=== PATIENT | male | born 1955 | race Caucasian/White ===

== ENCOUNTER 2017-12-21 16:34 | Inpatient (IN) | payer OTHER ==
[2017-12-21 16:41] VITALS: BMI 38.0
--- NOTE | 2017-12-21 20:02 | PDOC ---
History of Present Illness - General Chief Complaint: Wound Infection Stated Complaint: PCP SENT Time Seen by Provider: 12/21/17 20:00 History Source: Patient Exam Limitations: No Limitations - History of Present Illness Initial Comments: CHIEF COMPLAINT: 62 y/o afebrile, morbidly obese male with PMH HTN, IDDM, CKD ( dialysis M/W/F) sent down from wound center for admission for right toe infection. HISTORY OF PRESENT ILLNESS: The patient states the fourth toe of his right foot has been infected for 1 week and isn't improving, despite wound care. The patient was seen in the wound center today and sent to the ER for admission for IV antibiotics and to r/o osteomyelitis with an MRI tomorrow. Patient denies fever, chills and all other symptoms. Vital signs on arrival are within normal limits. REVIEW OF SYSTEMS: GENERAL/CONSTITUTIONAL: No fever/chills. No weakness. No weight change. HEAD, EYES, EARS, NOSE AND THROAT: No change in vision. No ear pain or discharge. No sore throat. CARDIOVASCULAR: No chest pain or shortness of breath. RESPIRATORY: No cough, wheezing, or hemoptysis. GASTROINTESTINAL: No abd pain, nausea, vomiting, diarrhea. GENITOURINARY: No dysuria, frequency, or change in urination. MUSCULOSKELETAL: No joint or muscle swelling or pain. No neck or back pain. SKIN: +infection to 4th toe of right foot NEUROLOGIC: No headache, vertigo, loss of consciousness, or loss of sensation. PHYSICAL EXAM: VITAL_SIGNS: within normal limits GENERAL_APPEARANCE: alert, cooperative, no obvious discomfort. MENTAL_STATUS: speech clear, oriented X 3, responds appropriately to questions. NEURO: motor intact and sensory intact in injured extremity. EXTREMITIES: good pulse in injured extremity. Erythematous and necrotic wound on dorsum of 4th right toe with surrounding erythema that has been marked with a pen. No streaking. SKIN: warm, dry, good color. Past History - Past Medical History Allergies/Adverse Reactions: Allergies Allergy/AdvReac Type Severity Reaction Status Date / Time No Known Allergies Allergy Verified 12/21/17 16:36 Home Medications: Ambulatory Orders Cinacalcet HCl [Sensipar] 60 mg PO DAILY 09/28/14 Hum Insulin NPH/Reg Insulin Hm [Novolin 70-30 U100 Cartridge] 40 unit SQ BID 11/ 21/14 Aspirin [ASA -] 81 mg PO DAILY #30 tab.chew 10/03/14 Atorvastatin Ca [Lipitor] 40 mg PO HS #30 tablet 10/03/14 cloNIDine HCL [Catapres -] 0.1 mg PO BID #60 tablet 10/03/14 Pantoprazole Sodium [Protonix -] 40 mg PO DAILY 11/20/14 Metoclopramide HCl [Reglan] 5 mg PO TID #0 tablet 04/28/16 Pantoprazole Sodium [Protonix] 40 mg PO DAILY #0 tablet. 04/28/16 Sevelamer Carbonate [Renvela -] 2,400 mg PO TID 04/28/16 Anemia: Yes Asthma: No Cancer: No Cardiac Disorders: No CVA: No COPD: No CHF: No DVT: No Dementia: No Diabetes: Yes Dialysis: Yes (m-w-f, lt arm fistula) GI Disorders: Yes (DIVERTICULOSIS, COLON POLYPS, GERD) Disorders: No HTN: Yes Hypercholesterolemia: Yes Liver Disease: Yes (ELEVATED LIVER ENZYMES) Seizures: No Thyroid Disease: No - Surgical History Abdominal Surgery: No Appendectomy: No Cardiac Surgery: No Cholecystectomy: No Lung Surgery: No Neurologic Surgery: No Orthopedic Surgery: Yes (ROTATOR CUFF REPAIR L SHOULDER) - Suicide/Smoking/Psychosocial Hx Smoking History: Never smoked Have you smoked in the past 12 months: No Information on smoking cessation initiated: No Hx Alcohol Use: No Drug/Substance Use Hx: No Substance Use Type: None Hx Substance Use Treatment: No *Physical Exam - Vital Signs Last Vital Signs Temp Pulse Resp BP Pulse Ox 97.7 F 97 H 18 135/76 99 12/21/17 16:37 12/21/17 16:37 12/21/17 16:37 12/21/17 16:37 12/21/17 16:37 ED Treatment Course - LABORATORY CBC & Chemistry Diagram: 12/21/17 22:27 12/21/17 22:27 Medical Decision Making - Medical Decision Making A/P: 62 y/o male sent down from wound center for worsening right 4th toe wound. Plan is as follows: 1. Labs 2. Xray 3. Blood and wound culture 4. Admission No leukocytosis. No fever. Spoke with Dr. Wilson, who is admitting for Dr. Jauregui. she accepts admission to med/surg and is in agreement with IV cleocin. Pt is aware of plan for admission. *DC/Admit/Observation/Transfer Diagnosis at time of Disposition: Toe infection Cellulitis Qualifiers: Site of cellulitis: extremity Site of cellulitis of extremity: toe Laterality: right Qualified Code(s): L03.031 - Cellulitis of right toe - Discharge Dispostion Condition at time of disposition: Good Admit: Yes - Referrals Referrals: Jameel Jauregui MD [Primary Care Provider] - - Patient Instructions - Post Discharge Activity
--- NOTE | 2017-12-21 22:28 | PDOC ---
*Physical Exam - Vital Signs Last Vital Signs Temp Pulse Resp BP Pulse Ox 97.7 F 97 H 18 135/76 99 12/21/17 16:37 12/21/17 16:37 12/21/17 16:37 12/21/17 16:37 12/21/17 16:37 ED Treatment Course - LABORATORY CBC & Chemistry Diagram: 12/22/17 06:10 12/22/17 06:10 Medical Decision Making - Medical Decision Making 12/21/17 22:28 agree with care from PETTY Taveras *DC/Admit/Observation/Transfer Diagnosis at time of Disposition: Toe infection, Cellulitis - Discharge Dispostion Condition at time of disposition: Good - Referrals - Patient Instructions - Post Discharge Activity
[2017-12-21 22:33] LABS: BASO % 0.8 % (0-2.0); HEMATOCRIT 39.6 % (35.4-49); HEMOGLOBIN 13.1 GM/dL (11.7-16.9); LYMPH % 19.7 % (8-40); MCH 29.2 pg (25.7-33.7); MCHC 32.9 g/dl (32.0-35.9); MEAN CELL VOLUME 88.7 fl (80-96); MEAN PLT VOLUME 9.8 fl (7.5-11.1); MONO % 10.9 % (3.8-10.2); NEUT % 66.6 % (42.8-82.8); PLATELET COUNT 179 K/MM3 (134-434); RBC 4.47 M/mm3 (4.00-5.60); RDW 16.1 % (11.9-15.9); WHITE BLOOD COUNT 9.1 K/mm3 (4.0-10.0)
[2017-12-21] MEDS ORDERED: CLINDAMYCIN 600MG PREMIX IVPB 600 MG/50 ML BAG IVPB ONE ×2 (23:25→23:59)
[2017-12-22 00:18] LABS: ALBUMIN 2.9 g/dl (3.4-5.0); ANION GAP 13 (8-16); BILIRUBIN,TOTAL 0.6 mg/dL (0.2-1.0); BLOOD UREA NITROGEN 51 mg/dL (7-18); CALCIUM 8.2 mg/dL (8.5-10.1); CHLORIDE 95 mmol/L (98-107); CO2 26 mmol/L (21-32); GLUCOSE,RANDOM 163 mg/dL (74-106); SGPT/ALT 14 U/L (12-78); SODIUM 134 mmol/L (136-145)
[2017-12-22 00:23] LABS: ALK PHOS 131 U/L (45-117)
[2017-12-22 00:25] LABS: SGOT/AST 16 U/L (15-37)
[2017-12-22 00:27] LABS: CREATININE 9.3 mg/dL (0.7-1.3); POTASSIUM 5.4 mmol/L (3.5-5.1)
[2017-12-22] MEDS ORDERED: PIPERACILLIN/TAZOB 3.375 GM 3.375 GM in DEXTROSE 5%-WATER - 50 ML IVPB ONE (03:45)
[2017-12-22] MEDS ORDERED: VANCOMYCIN 1,000 MG in DEXTROSE 5%-WATER - 250 ML IVPB ONE ×2 (04:00→16:00)
[2017-12-22] MEDS ORDERED: PIPERACILLIN/TAZOB 3.375 GM 3.375 GM/50 ML BAG IVPB ONE ×2 (04:18→16:55)
[2017-12-22] MEDS ORDERED: INSULIN (NOVOLOG MIX 70/30) 100 UNITS/ML MDV SQ SCH (07:00)
[2017-12-22] MEDS: METOCLOPRAMIDE HCL 10 MG TABLET (FP) PO SCH ×2 (07:11→10:09)
[2017-12-22] MEDS: INSULIN SLIDING SCALE (NOVOLOG) 1 VIAL SQ SCH ×3 (07:11→22:12)
[2017-12-22 07:41] LABS: BASO % 0.8 % (0-2.0); EOS % 2.9 % (0-4.5); HEMATOCRIT 38.4 % (35.4-49); HEMOGLOBIN 12.5 GM/dL (11.7-16.9); LYMPH % 22.2 % (8-40); MCH 28.9 pg (25.7-33.7); MCHC 32.6 g/dl (32.0-35.9); MEAN CELL VOLUME 88.5 fl (80-96); MEAN PLT VOLUME 9.1 fl (7.5-11.1); MONO % 11.2 % (3.8-10.2); NEUT % 62.9 % (42.8-82.8); PLATELET COUNT 166 K/MM3 (134-434); RBC 4.34 M/mm3 (4.00-5.60)
[2017-12-22] MEDS: SEVELAMER CARBONATE 800 MG TAB (FP) PO SCH ×2 (08:08→12:55)
[2017-12-22 08:11] LABS: CHLORIDE 93 mmol/L (98-107); POTASSIUM 5.3 mmol/L (3.5-5.1); SODIUM 133 mmol/L (136-145)
[2017-12-22 08:34] LABS: ALK PHOS 122 U/L (45-117); ANION GAP 13 (8-16); BILIRUBIN,TOTAL 0.8 mg/dL (0.2-1.0); BLOOD UREA NITROGEN 51 mg/dL (7-18); CALCIUM 7.2 mg/dL (8.5-10.1); CO2 27 mmol/L (21-32); GLUCOSE,RANDOM 160 mg/dL (74-106); SGOT/AST 6 U/L (15-37); SGPT/ALT 14 U/L (12-78); TOT PROT 7.4 g/dl (6.4-8.2)
[2017-12-22 08:57] LABS: CREATININE 10.1 mg/dL (0.7-1.3)
[2017-12-22] MEDS: cloNIDine HCL 0.1 MG TABLET PO SCH ×2 (10:08→22:09)
[2017-12-22] MEDS: HEPARIN NA (PORCINE) 5,000 UNITS/ML 1ML VIAL SQ SCH ×2 (10:08→22:09)
[2017-12-22] MEDS: ASPIRIN 81 MG CHEWABLE TABLETS PO SCH (10:08)
[2017-12-22] MEDS: PANTOPRAZOLE 40 MG TABLET (FP) PO SCH (10:08)
[2017-12-22] MEDS: CINACALCET HCL 30 MG TAB (FP) PO SCH (10:09)
--- NOTE | 2017-12-22 11:06 | CONSULT ---
Consult - text type - Consultation Consultation Note: Renal Consult for ESRD on HD This is a 62 year old gentleman with PMhx of ESRD on HD (MWF x 8 years), Hypertension, IDDM who was referred from wound car to the ED for further management of his Right LE wound on his foot. Pt is without any acute complaints. Denies any pain. Wound started more then a week ago. No Abx as per pt. No fever, chills, N/V/D. Last dialysis was Wednesday w/o complication. No SOB, chest pain, LE swelling. PMHx: as above Allergies: NDKA Family hx: NC Social Hx: NO T/A/D ROS: as per HPI, all other pertinent ros negative Home Meds: Home Medications Medication Instructions Recorded Cinacalcet HCl [Sensipar] 60 mg PO DAILY 09/28/14 Hum Insulin NPH/Reg Insulin Hm 40 unit SQ BID 09/28/14 [Novolin 70-30 U100 Cartridge] Aspirin [ASA -] 81 mg PO DAILY #30 tab.chew 10/03/14 Atorvastatin Ca [Lipitor] 40 mg PO HS #30 tablet 10/03/14 cloNIDine HCL [Catapres -] 0.1 mg PO BID #60 tablet 10/03/14 Pantoprazole Sodium [Protonix -] 40 mg PO DAILY 11/20/14 Metoclopramide HCl [Reglan] 5 mg PO TID #0 tablet 04/28/16 Pantoprazole Sodium [Protonix] 40 mg PO DAILY #0 tablet. 04/28/16 Sevelamer Carbonate [Renvela -] 2,400 mg PO TID 04/28/16 Vital Signs Temperature 97.7 F 12/21/17 16:37 Pulse Rate 97 H 12/21/17 16:37 Respiratory Rate 18 12/21/17 16:37 Blood Pressure 135/76 12/21/17 16:37 O2 Sat by Pulse Oximetry (%) 98 12/22/17 02:00 NAD awake and alert Neck supple, No JVD, MMM RRR, No M/R CTA, no rales Obese, NT/ND Trace edema in LE left ARM AVF 1 inch wound on 4th digit of right foot, no drainage CBC, BMP 12/22/17 06:10 12/22/17 06:10 Current Medications Aspirin (Asa -) 81 mg PO DAILY [facility] Last Admin: 12/22/17 10:08 Dose: 81 mg Atorvastatin Calcium (Lipitor -) 40 mg PO HS [facility] Cinacalcet (Sensipar -) 60 mg PO DAILY [facility] Last Admin: 12/22/17 10:09 Dose: 60 mg Clonidine (Catapres -) 0.1 mg PO BID [facility] Last Admin: 12/22/17 10:08 Dose: 0.1 mg Heparin Sodium (Porcine) (Heparin -) 5,000 unit SQ BID [facility] Last Admin: 12/22/17 10:08 Dose: 5,000 unit Vancomycin HCl 1,000 mg/ (Dextrose) 250 mls @ 250 mls/hr IVPB DAILY [facility] PRN Reason: Protocol Piperacillin/Tazobactam/Dextrose (Zosyn 3.375gm Ivpb (Premix)) 50 mls @ 100 mls /hr IVPB BID [facility] PRN Reason: Protocol Insulin Aspart (Novolog Vial Sliding Scale -) 1 vial SQ ACHS [facility] PRN Reason: Protocol Last Admin: 12/22/17 07:11 Dose: Not Given Metoclopramide HCl (Reglan -) 5 mg PO TIDAC [facility] Last Admin: 12/22/17 10:09 Dose: 5 mg Pantoprazole Sodium (Protonix -) 40 mg PO DAILY [facility] Last Admin: 12/22/17 10:08 Dose: 40 mg Sevelamer Carbonate (Renvela -) 2,400 mg PO TIDCM [facility] Last Admin: 12/22/17 08:08 Dose: 2,400 mg 62 year old gentleman with PMhx of ESRD on HD (MWF x 8 years), Hypertension, IDDM who was referred from wound car to the ED for further management of his Right LE wound on his foot. #Suspected soft tissue infection vs osteomylitis of right LE s/p Vanco/Zosyn/Clindamyin in the ED cultures collected will check Vanco level with HD and redose as needed ID and Podiatry follow up #ESRD on HD for dialysis today as inpatient UF as tolerated Renal diet 1.2L fluid restriction dsoe all meds for intermittent HD #Hyperkalemia secondary to ESRD low k diet expect improvement with dialysis #Renal Osteodystrophy check Phos continue renvela Thank you Will follow Meet Pedro DO
--- NOTE | 2017-12-22 14:13 | CON.ID ---
Consult Consult Specialty:: infectious diseases Referred by:: Reason for Consultation:: wound infection - History of Present Illness Chief Complaint: non healing wound of the rt leg History of Present Illness: 62 year old gentleman with PMhx of ESRD o), Hypertension, IDDM who being admitted for r management of his Right LE wound on his foot. Pt is without any acute complaints. Denies any pain. according to the patient he suffered injury and the wound started about a week back patient did not have any symptoms so he did not follow up he did not have any fever chills or much pain patient went to the wound care center and was send to the hospital for further evaluation and treatment currently patient is stable with no complaints - History Source History Provided By: Patient Limitations to Obtaining History: No Limitations - Past Medical History Cardio/Vascular: Yes: HTN Endocrine: Yes: Diabetes Mellitus - Alcohol/Substance Use Hx Alcohol Use: No - Smoking History Smoking history: Never smoked Have you smoked in the past 12 months: No Home Medications - Allergies Allergies/Adverse Reactions: Allergies Allergy/AdvReac Type Severity Reaction Status Date / Time No Known Allergies Allergy Verified 12/21/17 16:36 - Home Medications Home Medications: Ambulatory Orders Cinacalcet HCl [Sensipar] 60 mg PO DAILY 09/28/14 Hum Insulin NPH/Reg Insulin Hm [Novolin 70-30 U100 Cartridge] 40 unit SQ BID Aspirin [ASA -] 81 mg PO DAILY #30 tab.chew 10/03/14 Atorvastatin Ca [Lipitor] 40 mg PO HS #30 tablet 10/03/14 cloNIDine HCL [Catapres -] 0.1 mg PO BID #60 tablet 10/03/14 Pantoprazole Sodium [Protonix -] 40 mg PO DAILY 11/20/14 Metoclopramide HCl [Reglan] 5 mg PO TID #0 tablet 04/28/16 Pantoprazole Sodium [Protonix] 40 mg PO DAILY #0 tablet. 04/28/16 Sevelamer Carbonate [Renvela -] 2,400 mg PO TID 04/28/16 Review of Systems - Review of Systems Constitutional: reports: No Symptoms Eyes: reports: No Symptoms HENT: reports: No Symptoms Neck: reports: No Symptoms Cardiovascular: reports: No Symptoms Respiratory: reports: No Symptoms Gastrointestinal: reports: No Symptoms, Vomiting Blood Musculoskeletal: reports: Joint Swelling Integumentary: reports: Bruising, Wound Neurological: reports: No Symptoms Endocrine: reports: No Symptoms Hematology/Lymphatic: reports: No Symptoms Psychiatric: reports: No Symptoms Physical Exam Vital Signs: Vital Signs Temperature 97.7 F 12/21/17 16:37 Pulse Rate 97 H 12/21/17 16:37 Respiratory Rate 18 12/21/17 16:37 Blood Pressure 135/76 12/21/17 16:37 O2 Sat by Pulse Oximetry (%) 98 12/22/17 02:00 Constitutional: Yes: Well Nourished, No Distress, Calm, Obese HENT: Yes: Atraumatic, Normocephalic Neck: Yes: Supple, Trachea Midline Cardiovascular: Yes: Regular Rate and Rhythm Respiratory: Yes: Regular, CTA Bilaterally Gastrointestinal: Yes: Normal Bowel Sounds, Soft Musculoskeletal: Yes: WNL Extremities: Yes: Other (left arm av fistula 1 inch wound on 4th digit of right foot, no drainage) Edema: RLE: 1+ Wound/Incision: Yes: Other (1 inch wound on 4th digit of right foot, no drainage ) Neurological: Yes: Alert, Oriented Psychiatric: Yes: Alert, Oriented Labs: CBC, BMP 12/22/17 06:10 12/22/17 06:10 Imaging - Results X-ray: Report Reviewed, Image Reviewed Assessment/Plan looking at the wound and the patients history i suspect patient could very well have osteo r/o osteo no healing wound of the rt leg obesity wound infection esrd patient received broad spectrum abx in the er plan will continue abx mri of the leg await for cx report rest as per renal
[2017-12-22] MEDS: PIPERACILLIN/TAZOB 2.25 GM 2.25 GM in DEXTROSE 5%-WATER - 50 ML IVPB SCH (15:10)
--- NOTE | 2017-12-22 17:39 | HP ---
Admitting History and Physical - Admission History of Present Illness: Pt is a 62 y/o morbidly obese male with PMH significant for HTN, IDDM, CKD ( dialysis M/W/F) who was sent down from wound center for admission for right toe infection. The patient states the fourth toe of his right foot has been infected for 1 week and isn't improving, despite wound care. The patient was seen in the wound center today and sent to the ER for admission for IV antibiotics and to r/o osteomyelitis. - Past Medical History Cardiovascular: Yes: HTN Endocrine: Yes: Diabetes Mellitus - Smoking History Smoking history: Never smoked Have you smoked in the past 12 months: No - Alcohol/Substance Use Hx Alcohol Use: No Home Medications - Allergies Allergies/Adverse Reactions: Allergies Allergy/AdvReac Type Severity Reaction Status Date / Time No Known Allergies Allergy Verified 12/21/17 16:36 - Home Medications Home Medications: Ambulatory Orders Cinacalcet HCl [Sensipar] 60 mg PO DAILY 09/28/14 Hum Insulin NPH/Reg Insulin Hm [Novolin 70-30 U100 Cartridge] 40 unit SQ BID Aspirin [ASA -] 81 mg PO DAILY #30 tab.chew 10/03/14 Atorvastatin Ca [Lipitor] 40 mg PO HS #30 tablet 10/03/14 cloNIDine HCL [Catapres -] 0.1 mg PO BID #60 tablet 10/03/14 Pantoprazole Sodium [Protonix -] 40 mg PO DAILY 11/20/14 Metoclopramide HCl [Reglan] 5 mg PO TID #0 tablet 04/28/16 Pantoprazole Sodium [Protonix] 40 mg PO DAILY #0 tablet. 04/28/16 Sevelamer Carbonate [Renvela -] 2,400 mg PO TID 04/28/16 Family Disease History - Family Disease History Family History: Unremarkable Review of Systems - Review of Systems Constitutional: reports: No Symptoms Eyes: reports: No Symptoms HENT: reports: No Symptoms Neck: reports: No Symptoms Cardiovascular: reports: No Symptoms Respiratory: reports: No Symptoms Gastrointestinal: reports: No Symptoms Physical Examination Vital Signs: Vital Signs Temperature 97.7 F 12/21/17 16:37 Pulse Rate 97 H 12/21/17 16:37 Respiratory Rate 18 12/21/17 16:37 Blood Pressure 135/76 12/21/17 16:37 O2 Sat by Pulse Oximetry (%) 98 12/22/17 02:00 Constitutional: Yes: Well Nourished HENT: Yes: WNL Neck: Yes: WNL, Supple Cardiovascular: Yes: WNL, Regular Rate and Rhythm Respiratory: Yes: WNL, Regular, CTA Bilaterally Gastrointestinal: Yes: WNL, Normal Bowel Sounds, Soft, Abdomen, Obese Extremities: Yes: Other (LUE AVF Rt 4th toe w/ eschar) Neurological: Yes: WNL, Alert, Oriented ...Motor Strength: WNL Labs: CBC, BMP 12/22/17 06:10 12/22/17 06:10 Problem List - Problems (1) Cellulitis Assessment/Plan: Cont IV antibxs As per ID/Vasc Check MRI to r/o oste Follow cultures Code(s): L03.90 - CELLULITIS, UNSPECIFIED Qualifiers: Site of cellulitis: extremity Site of cellulitis of extremity: toe Laterality: right Qualified Code(s): L03.031 - Cellulitis of right toe (2) ESRD (end stage renal disease) Code(s): N18.6 - END STAGE RENAL DISEASE (3) Diabetes Code(s): E11.9 - TYPE 2 DIABETES MELLITUS WITHOUT COMPLICATIONS (4) HTN (hypertension) Code(s): I10 - ESSENTIAL (PRIMARY) HYPERTENSION (5) HLD (hyperlipidemia) Code(s): E78.5 - HYPERLIPIDEMIA, UNSPECIFIED
[2017-12-22] MEDS ORDERED: PIPERACILLIN/TAZOB 3.375 GM 50 ML IVPB SCH (22:00)
[2017-12-22] MEDS: ATORVASTATIN CA 40 MG TABLET (FP) PO SCH (22:09)
[2017-12-23] MEDS: PIPERACILLIN/TAZOB 2.25 GM 2.25 GM in DEXTROSE 5%-WATER - 50 ML IVPB SCH ×3 (02:46→17:42)
[2017-12-23] MEDS: METOCLOPRAMIDE HCL 10 MG TABLET (FP) PO SCH ×3 (06:00→17:41)
[2017-12-23] MEDS: INSULIN SLIDING SCALE (NOVOLOG) 1 VIAL SQ SCH ×4 (06:01→21:11)
[2017-12-23] MEDS: SEVELAMER CARBONATE 800 MG TAB (FP) PO SCH ×3 (08:45→17:41)
[2017-12-23] MEDS ORDERED: VANCOMYCIN 1,000 MG in DEXTROSE 5%-WATER - 250 ML IVPB SCH (10:00)
[2017-12-23] MEDS ORDERED: PT OWN MED DRAWER 7, Y5N ONE ×2 (10:49→17:36)
[2017-12-23] MEDS: PANTOPRAZOLE 40 MG TABLET (FP) PO SCH (10:50)
[2017-12-23] MEDS: ASPIRIN 81 MG CHEWABLE TABLETS PO SCH (10:50)
[2017-12-23] MEDS: HEPARIN NA (PORCINE) 5,000 UNITS/ML 1ML VIAL SQ SCH ×2 (10:51→21:12)
[2017-12-23] MEDS: CINACALCET HCL 30 MG TAB (FP) PO SCH (10:51)
[2017-12-23] MEDS: cloNIDine HCL 0.1 MG TABLET PO SCH ×2 (10:51→21:12)
--- NOTE | 2017-12-23 12:33 | PN ---
Progress Note, Physician History of Present Illness: patient doing well no complaints had mri of the leg done wound dry no drainage - Current Medication List Current Medications: Active Medications Aspirin (Asa -) 81 mg PO DAILY [facility] Last Admin: 12/23/17 10:50 Dose: 81 mg Atorvastatin Calcium (Lipitor -) 40 mg PO HS [facility] Last Admin: 12/22/17 22:09 Dose: 40 mg Cinacalcet (Sensipar -) 60 mg PO DAILY [facility] Last Admin: 12/23/17 10:51 Dose: 60 mg Clonidine (Catapres -) 0.1 mg PO BID [facility] Last Admin: 12/23/17 10:51 Dose: 0.1 mg Heparin Sodium (Porcine) (Heparin -) 5,000 unit SQ BID [facility] Last Admin: 12/23/17 10:51 Dose: 5,000 unit Piperacillin Sod/Tazobactam (Sod 2.25 gm/ Dextrose) 50 mls @ 100 mls/hr IVPB Q8H-IV [facility] PRN Reason: Protocol Last Admin: 12/23/17 10:51 Dose: 100 mls/hr Insulin Aspart (Novolog Vial Sliding Scale -) 1 vial SQ ACHS [facility] PRN Reason: Protocol Last Admin: 12/23/17 11:11 Dose: 2 units Metoclopramide HCl (Reglan -) 5 mg PO TIDAC [facility] Last Admin: 12/23/17 10:52 Dose: Not Given Pantoprazole Sodium (Protonix -) 40 mg PO DAILY [facility] Last Admin: 12/23/17 10:50 Dose: 40 mg Sevelamer Carbonate (Renvela -) 2,400 mg PO TIDCM [facility] Last Admin: 12/23/17 12:12 Dose: 2,400 mg - Objective Vital Signs: Vital Signs Temperature 97.8 F 12/23/17 09:00 Pulse Rate 84 12/23/17 09:00 Respiratory Rate 18 12/23/17 09:00 Blood Pressure 111/73 12/23/17 09:00 O2 Sat by Pulse Oximetry (%) 100 12/22/17 21:30 Constitutional: Yes: No Distress, Calm, Obese Cardiovascular: Yes: Regular Rate and Rhythm Respiratory: Yes: Regular, CTA Bilaterally Gastrointestinal: Yes: Normal Bowel Sounds, Soft Musculoskeletal: Yes: Other Extremities: Yes: Other (dialysis fistula wound dry present) Neurological: Yes: Alert, Oriented Psychiatric: Yes: Alert, Oriented Labs: CBC, BMP 12/22/17 06:10 12/22/17 06:10 Assessment/Plan looking at the wound and the patients history i suspect patient could very well have osteo r/o osteo no healing wound of the rt leg obesity wound infection esrd patient received broad spectrum abx in the er plan continue abx await for mri result await for cx rest as per primary dialysis as per renal
--- NOTE | 2017-12-23 14:28 | CONSULT ---
Consult - text type - Consultation Consultation Note: Patient is known to me. Presented to me with Cellulitis of right foot on Thursday 12/21. Sent to ER for Admission and treatment. Patient seen on the floor about 11am today. Stated MRI done. nvs decreased b/l, +cellulitis right foot with necrotic wound right foot, - drainage, +dry eschar. 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 Keller. MRI results to be reviewed. IVABX as per ID. Santyl dressing to right foot wound. HBO Eval. Will follow. Left foot protective dry sterile dressing. Post op shoe both feet. CBC with diff, esr, [id number], crp if not done already.
--- NOTE | 2017-12-23 15:42 | PN ---
Progress Note, Physician Chief Complaint: This is a patient on HD for ESRD, admitted with gangrenous foot. History of Present Illness: This is a 62 year old gentleman with PMhx of ESRD on HD (MWF x 8 years), Hypertension, IDDM who was referred from wound care. The patient is comfortable. No new complaints. Denies any pain. Wound started more than a week ago. - Current Medication List Current Medications: Active Medications Aspirin (Asa -) 81 mg PO DAILY [facility] Last Admin: 12/23/17 10:50 Dose: 81 mg Atorvastatin Calcium (Lipitor -) 40 mg PO HS [facility] Last Admin: 12/22/17 22:09 Dose: 40 mg Cinacalcet (Sensipar -) 60 mg PO DAILY [facility] Last Admin: 12/23/17 10:51 Dose: 60 mg Clonidine (Catapres -) 0.1 mg PO BID [facility] Last Admin: 12/23/17 10:51 Dose: 0.1 mg Collagenase (Santyl -) 1 applic TP DAILY [facility] Heparin Sodium (Porcine) (Heparin -) 5,000 unit SQ BID [facility] Last Admin: 12/23/17 10:51 Dose: 5,000 unit Piperacillin Sod/Tazobactam (Sod 2.25 gm/ Dextrose) 50 mls @ 100 mls/hr IVPB Q8H-IV [facility] PRN Reason: Protocol Last Admin: 12/23/17 10:51 Dose: 100 mls/hr Insulin Aspart (Novolog Vial Sliding Scale -) 1 vial SQ ACHS [facility] PRN Reason: Protocol Last Admin: 12/23/17 11:11 Dose: 2 units Metoclopramide HCl (Reglan -) 5 mg PO TIDAC [facility] Last Admin: 12/23/17 10:52 Dose: Not Given Pantoprazole Sodium (Protonix -) 40 mg PO DAILY [facility] Last Admin: 12/23/17 10:50 Dose: 40 mg Sevelamer Carbonate (Renvela -) 2,400 mg PO TIDCM [facility] Last Admin: 12/23/17 12:12 Dose: 2,400 mg - Objective Vital Signs: Vital Signs Temperature 98.2 F 12/23/17 14:23 Pulse Rate 85 12/23/17 14:23 Respiratory Rate 18 12/23/17 14:23 Blood Pressure 111/66 12/23/17 14:23 O2 Sat by Pulse Oximetry (%) 100 12/22/17 21:30 Constitutional: Yes: Well Nourished, Anxious Eyes: Yes: Conjunctiva Clear HENT: Yes: Normocephalic Neck: Yes: Trachea Midline Cardiovascular: Yes: Regular Rate and Rhythm, S1, S2 Respiratory: Yes: CTA Bilaterally, Diminished Gastrointestinal: Yes: Normal Bowel Sounds, Abdomen, Obese Extremities: Yes: Cool, Other (gangrene of the toe (Rt)) Edema: Yes Edema: LLE: Trace, RLE: Trace Labs: CBC, BMP 12/22/17 06:10 12/22/17 06:10 Problem List - Problems (1) ESRD (end stage renal disease) Code(s): N18.6 - END STAGE RENAL DISEASE (2) Toe gangrene Code(s): I96 - GANGRENE, NOT ELSEWHERE CLASSIFIED (3) Cellulitis Code(s): L03.90 - CELLULITIS, UNSPECIFIED Qualifiers: Site of cellulitis: extremity Site of cellulitis of extremity: toe Laterality: right Qualified Code(s): L03.031 - Cellulitis of right toe (4) Toe infection Code(s): L08.9 - LOCAL INFECTION OF THE SKIN AND SUBCUTANEOUS TISSUE, UNSP Assessment/Plan This is a 62 year old gentleman with PMhx of ESRD on HD (MWF x 8 years), Hypertension, IDDM admitted with foot gangrene. Vascular follow up and ID follow up in progress. Had uneventful HD yesterday. Next HD tin AM. Will continue the Abx. Thank you. Elizabet Arteaga MD
--- NOTE | 2017-12-23 16:05 | PN ---
Physical Exam: Medicine coverage for Dr. Wilson SUBJECTIVE: Patient seen and examined. He has no acute complaints, no fever, chills. Tolerated HD yesterday. OBJECTIVE: Vital Signs Period Temp Pulse Resp BP Sys/Martinez Pulse Ox Last 24 Hr 97.8 F-98.6 F 70-94 18-18 96-148/52-87 100 PE Neuro: alert, awake, cn 2-12 intact Pulm: CTAB CV: s1 s2 rrr Abd: s nt nd + bs Ext: LUE AVF, R 4th toe eschar, non draining, open, + dp pulses, l plantar foot wound stage 2 Laboratory Results - last 24 hr 12/22/17 12/22/17 12/23/17 16:00 22:09 05:54 POC Glucometer 218 176 Random Vancomycin Vancomycin Pre-Dose 10.810 H D 12/23/17 12/23/17 07:15 11:10 POC Glucometer 171 Random Vancomycin 14.506 Vancomycin Pre-Dose Active Medications Generic Name Dose Route Start Last Admin Trade Name Russellq PRN Reason Stop Dose Admin Aspirin 81 mg 12/22/17 10:00 12/23/17 10:50 Asa - PO 81 mg DAILY MARK Administration Atorvastatin Calcium 40 mg 12/22/17 22:00 12/22/17 22:09 Lipitor - PO 40 mg HS MARK Administration Cinacalcet 60 mg 12/22/17 10:00 12/23/17 10:51 Sensipar - PO 60 mg DAILY MARK Administration Clonidine 0.1 mg 12/22/17 10:00 12/23/17 10:51 Catapres - PO 0.1 mg BID MARK Administration Collagenase 1 applic 12/24/17 10:00 Santyl - TP DAILY MARK Heparin Sodium (Porcine) 5,000 unit 12/22/17 10:00 12/23/17 10:51 Heparin - SQ 5,000 unit BID MARK Administration Piperacillin Sod/Tazobactam 50 mls @ 100 mls/hr 12/22/17 15:15 12/23/17 10:51 Sod 2.25 gm/ Dextrose IVPB 100 mls/hr Q8H-IV MARK Administration Protocol Insulin Aspart 1 vial 12/22/17 07:00 12/23/17 11:11 Novolog Vial Sliding Scale - SQ 2 units ACHS MARK Administration Protocol Metoclopramide HCl 5 mg 12/22/17 07:00 02/15/18 10:52 Reglan - PO Not Given TIDAC MARK Pantoprazole Sodium 40 mg 12/22/17 10:00 12/23/17 10:50 Protonix - PO 40 mg DAILY MARK Administration Sevelamer Carbonate 2,400 mg 12/22/17 08:00 12/23/17 12:12 Renvela - PO 2,400 mg TIDCM MARK Administration Assessment: 62 year old male admitted with R foot cellulitis Plan: 1. R foot cellulitis - r/o osteo, LE MRI done, report pending - Continue zosyn per ID - Daily dressing changes with santyl, post op shoe - ESR, CRP ordered - Vascular/podiatry seeing 2. DM II - Resume novolog 70/30 40units bid - ISS, BGM ACHS 3.ESRD HD MWF - HD per renal - Renvela - Sensipar 4. DVT - Heparin sq 5. HTN - Clonidine 0.1mg BID 6. HLD - Statin Visit type - Emergency Visit Emergency Visit: Yes ED Registration Date: 12/21/17 Care time: The patient presented to the Emergency Department on the above date and was hospitalized for further evaluation of their emergent condition. - New Patient This patient is new to me today: Yes Date on this admission: 12/23/17 - Critical Care Critical Care patient: No
[2017-12-23] MEDS: INSULIN (NOVOLOG MIX 70/30) 100 UNITS/ML MDV SQ SCH (17:48)
[2017-12-23] MEDS: ATORVASTATIN CA 40 MG TABLET (FP) PO SCH (21:11)
[2017-12-24] MEDS: PIPERACILLIN/TAZOB 2.25 GM 2.25 GM in DEXTROSE 5%-WATER - 50 ML IVPB SCH ×2 (01:57→10:36)
[2017-12-24] MEDS: HEPARIN NA (PORCINE) 5,000 UNITS/ML 1ML VIAL SQ SCH ×3 (05:57→22:41)
[2017-12-24] MEDS: METOCLOPRAMIDE HCL 10 MG TABLET (FP) PO SCH ×4 (05:59→17:34)
[2017-12-24] MEDS: INSULIN SLIDING SCALE (NOVOLOG) 1 VIAL SQ SCH ×4 (06:01→22:46)
[2017-12-24] MEDS: INSULIN (NOVOLOG MIX 70/30) 100 UNITS/ML MDV SQ SCH ×2 (06:01→17:35)
[2017-12-24 06:06] LABS: HBSAG SCREEN Negative (Negative); HEP B CORE AB, TOT Negative (Negative)
[2017-12-24] MEDS: SEVELAMER CARBONATE 800 MG TAB (FP) PO SCH ×4 (08:15→17:31)
[2017-12-24 08:40] LABS: ANION GAP 11 (8-16); BLOOD UREA NITROGEN 48 mg/dL (7-18); CALCIUM 7.5 mg/dL (8.5-10.1); CHLORIDE 96 mmol/L (98-107); CO2 28 mmol/L (21-32); GLUCOSE,RANDOM 51 mg/dL (74-106); POTASSIUM 4.7 mmol/L (3.5-5.1); SODIUM 135 mmol/L (136-145)
[2017-12-24 08:50] LABS: CREATININE 9.8 mg/dL (0.7-1.3)
[2017-12-24] MEDS ORDERED: PT OWN MED DRAWER 7, Y5N ONE ×2 (10:03→14:52)
[2017-12-24] MEDS: CINACALCET HCL 30 MG TAB (FP) PO SCH (10:06)
[2017-12-24] MEDS: PANTOPRAZOLE 40 MG TABLET (FP) PO SCH (10:06)
[2017-12-24] MEDS: cloNIDine HCL 0.1 MG TABLET PO SCH ×2 (10:07→22:41)
[2017-12-24] MEDS: ASPIRIN 81 MG CHEWABLE TABLETS PO SCH (10:07)
--- NOTE | 2017-12-24 10:42 | PN ---
Progress Note, Physician Chief Complaint: This is a patient on HD for ESRD, admitted with gangrenous foot. Seen on dialysis i the uit. Tolerates well. Orders reviewed with the RN. History of Present Illness: This is a 62 year old gentleman with PMhx of ESRD on HD (MWF x 8 years), Hypertension, IDDM who was referred from wound care. The patient is comfortable. No new complaints. Denies any pain. - Current Medication List Current Medications: Active Medications Aspirin (Asa -) 81 mg PO DAILY [facility] Last Admin: 12/24/17 10:07 Dose: 81 mg Atorvastatin Calcium (Lipitor -) 40 mg PO HS [facility] Last Admin: 12/23/17 21:11 Dose: 40 mg Cinacalcet (Sensipar -) 60 mg PO DAILY [facility] Last Admin: 12/24/17 10:06 Dose: 60 mg Clonidine (Catapres -) 0.1 mg PO BID [facility] Last Admin: 12/24/17 10:07 Dose: Not Given Collagenase (Santyl -) 1 applic TP DAILY [facility] Heparin Sodium (Porcine) (Heparin -) 5,000 unit SQ TID [facility] Last Admin: 12/24/17 05:57 Dose: 5,000 unit Piperacillin Sod/Tazobactam (Sod 2.25 gm/ Dextrose) 50 mls @ 100 mls/hr IVPB Q8H-IV MARK PRN Reason: Protocol Last Admin: 12/24/17 10:36 Dose: 100 mls/hr Insulin Aspart (Novolog Vial Sliding Scale -) 1 vial SQ ACHS [facility] PRN Reason: Protocol Last Admin: 12/24/17 06:01 Dose: Not Given Insulin Aspart (Novolog Mix 70/30 Vial) 40 units SQ BIDAC [facility] Last Admin: 12/24/17 06:01 Dose: 40 units Metoclopramide HCl (Reglan -) 5 mg PO TIDAC [facility] Last Admin: 12/24/17 06:01 Dose: 5 mg Pantoprazole Sodium (Protonix -) 40 mg PO DAILY [facility] Last Admin: 12/24/17 10:06 Dose: 40 mg Sevelamer Carbonate (Renvela -) 2,400 mg PO TIDCM [facility] Last Admin: 12/24/17 08:15 Dose: 2,400 mg - Objective Vital Signs: Vital Signs Temperature 76 F L 12/24/17 06:00 Pulse Rate 79 12/24/17 06:00 Respiratory Rate 20 12/24/17 06:00 Blood Pressure 125/76 12/24/17 06:00 O2 Sat by Pulse Oximetry (%) 100 12/22/17 21:30 Constitutional: Yes: No Distress, Calm Eyes: Yes: Conjunctiva Clear HENT: Yes: Normocephalic Neck: Yes: Trachea Midline Cardiovascular: Yes: S1, S2 Respiratory: Yes: CTA Bilaterally, Diminished Gastrointestinal: Yes: Normal Bowel Sounds, Soft Genitourinary: No: CVA Tenderness - Left, CVA Tenderness - Right Extremities: Yes: Other (ulcers on the toes) Neurological: Yes: Alert, Oriented Labs: CBC, BMP 12/24/17 08:00 Problem List - Problems (1) ESRD (end stage renal disease) Code(s): N18.6 - END STAGE RENAL DISEASE (2) Toe gangrene Code(s): I96 - GANGRENE, NOT ELSEWHERE CLASSIFIED (3) Cellulitis Code(s): L03.90 - CELLULITIS, UNSPECIFIED Qualifiers: Site of cellulitis: extremity Site of cellulitis of extremity: toe Laterality: right Qualified Code(s): L03.031 - Cellulitis of right toe (4) Toe infection Code(s): L08.9 - LOCAL INFECTION OF THE SKIN AND SUBCUTANEOUS TISSUE, UNSP Assessment/Plan This is a 62 year old gentleman with PMhx of ESRD on HD (MWF x 8 years), Hypertension, IDDM admitted with foot gangrene. Vascular follow up and ID follow up in progress. HD in progress. Tolerates well. Will continue the Abx. Thank you. Elizabet Arteaga MD
--- NOTE | 2017-12-24 11:51 | CONSULT ---
Consult - text type - Consultation Consultation Note: Patient seen in bed in dialysis. No complaints. vss, tmax 97.8, vsgi, mri inconclusive for om right foot, left foot wound is resolved,+wound 4th toe with necrotic tissue, jyee6n=4.4, ESR=84, CRP=5.9 om? right resolved wound left HBO consult. Continue santyl dressing changes. Needs custom molded shoes due to charcot deforimty. Will follow. Post op shoe b/l.
--- NOTE | 2017-12-24 13:42 | PN ---
Progress Note, Physician History of Present Illness: patient stable no complaints - Current Medication List Current Medications: Active Medications Aspirin (Asa -) 81 mg PO DAILY [facility] Last Admin: 12/24/17 10:07 Dose: 81 mg Atorvastatin Calcium (Lipitor -) 40 mg PO HS [facility] Last Admin: 12/23/17 21:11 Dose: 40 mg Cinacalcet (Sensipar -) 60 mg PO DAILY [facility] Last Admin: 12/24/17 10:06 Dose: 60 mg Clonidine (Catapres -) 0.1 mg PO BID [facility] Last Admin: 12/24/17 10:07 Dose: Not Given Collagenase (Santyl -) 1 applic TP DAILY [facility] Heparin Sodium (Porcine) (Heparin -) 5,000 unit SQ TID [facility] Last Admin: 12/24/17 05:57 Dose: 5,000 unit Ceftriaxone Sodium 2 gm/ (Dextrose) 100 mls @ 200 mls/hr IVPB DAILY [facility] Insulin Aspart (Novolog Vial Sliding Scale -) 1 vial SQ ACHS [facility] PRN Reason: Protocol Last Admin: 12/24/17 12:29 Dose: Not Given Insulin Aspart (Novolog Mix 70/30 Vial) 40 units SQ BIDAC [facility] Last Admin: 12/24/17 06:01 Dose: 40 units Metoclopramide HCl (Reglan -) 5 mg PO TIDAC [facility] Last Admin: 12/24/17 12:30 Dose: Not Given Pantoprazole Sodium (Protonix -) 40 mg PO DAILY [facility] Last Admin: 12/24/17 10:06 Dose: 40 mg Sevelamer Carbonate (Renvela -) 2,400 mg PO TIDCM [facility] Last Admin: 12/24/17 12:29 Dose: Not Given - Objective Vital Signs: Vital Signs Temperature 97.8 F 12/24/17 10:10 Pulse Rate 79 12/24/17 12:30 Respiratory Rate 18 12/24/17 12:30 Blood Pressure 155/92 12/24/17 12:30 O2 Sat by Pulse Oximetry (%) 100 12/22/17 21:30 Constitutional: Yes: No Distress, Calm, Obese Cardiovascular: Yes: Regular Rate and Rhythm Respiratory: Yes: Regular, CTA Bilaterally Gastrointestinal: Yes: Normal Bowel Sounds, Soft Musculoskeletal: Yes: WNL Extremities: Yes: Other Wound/Incision: Yes: Other (as described above) Neurological: Yes: Alert, Oriented Psychiatric: Yes: Alert, Oriented Labs: CBC, BMP 12/24/17 08:00 12/24/17 08:00 Assessment/Plan looking at the wound and the patients history i suspect patient could very well have osteo r/o osteo no healing wound of the rt leg obesity wound infection esrd looked at the mri result i am leaning towards treating this patient as osteo because of his history plan will change abx to ceftriaxone i am going to suggest we give it for 4 weeks
[2017-12-24] MEDS: COLLAGENASE CLOSTRIDIUM HIST. 30 GRAMS TUBE TP SCH (14:54)
[2017-12-24] MEDS: CEFTRIAXONE IN IS-OSM DEXTROSE 2 GM/50 ML BAG IVPB SCH (14:54)
[2017-12-24] MEDS ORDERED: INSULIN (NOVOLOG MIX 70/30) 100 UNITS/ML MDV SQ ONE (18:06)
[2017-12-24] MEDS: ATORVASTATIN CA 40 MG TABLET (FP) PO SCH (22:41)
--- NOTE | 2017-12-24 23:22 | PN ---
Progress Note, Physician History of Present Illness: No new changes - Current Medication List Current Medications: Active Medications Aspirin (Asa -) 81 mg PO DAILY [facility] Last Admin: 12/24/17 10:07 Dose: 81 mg Atorvastatin Calcium (Lipitor -) 40 mg PO HS [facility] Last Admin: 12/24/17 22:41 Dose: 40 mg Cinacalcet (Sensipar -) 60 mg PO DAILY [facility] Last Admin: 12/24/17 10:06 Dose: 60 mg Clonidine (Catapres -) 0.1 mg PO BID [facility] Last Admin: 12/24/17 22:41 Dose: 0.1 mg Collagenase (Santyl -) 1 applic TP DAILY [facility] Last Admin: 12/24/17 14:54 Dose: 1 applic Heparin Sodium (Porcine) (Heparin -) 5,000 unit SQ TID [facility] Last Admin: 12/24/17 22:41 Dose: 5,000 unit CEFTRIAXONE IN IS-OSM DEXTROSE (Ceftriaxone 2 Gm-D5w Bag) 2 gm in 50 mls @ 100 mls/hr IVPB DAILY [facility] Last Admin: 12/24/17 14:54 Dose: 100 mls/hr Insulin Aspart (Novolog Vial Sliding Scale -) 1 vial SQ ACHS [facility] PRN Reason: Protocol Last Admin: 12/24/17 22:46 Dose: 2 units Insulin Aspart (Novolog Mix 70/30 Vial) 40 units SQ BIDAC [facility] Last Admin: 12/24/17 17:35 Dose: 40 units Metoclopramide HCl (Reglan -) 5 mg PO TIDAC [facility] Last Admin: 12/24/17 17:34 Dose: 5 mg Pantoprazole Sodium (Protonix -) 40 mg PO DAILY [facility] Last Admin: 12/24/17 10:06 Dose: 40 mg Sevelamer Carbonate (Renvela -) 2,400 mg PO TIDCM [facility] Last Admin: 12/24/17 17:31 Dose: 2,400 mg - Objective Vital Signs: Vital Signs Temperature 97.6 F 12/24/17 14:15 Pulse Rate 72 12/24/17 14:30 Respiratory Rate 18 12/24/17 14:30 Blood Pressure 142/70 12/24/17 14:30 O2 Sat by Pulse Oximetry (%) 100 12/22/17 21:30 Constitutional: Yes: Well Nourished Cardiovascular: Yes: WNL, Regular Rate and Rhythm Respiratory: Yes: WNL, Regular, CTA Bilaterally Gastrointestinal: Yes: WNL, Normal Bowel Sounds, Soft, Abdomen, Obese Extremities: Yes: Other (Rt foot wrapped in dressing) Labs: CBC, BMP 12/24/17 08:00 12/24/17 08:00 Problem List - Problems (1) Diabetes Code(s): E11.9 - TYPE 2 DIABETES MELLITUS WITHOUT COMPLICATIONS (2) ESRD (end stage renal disease) Code(s): N18.6 - END STAGE RENAL DISEASE (3) HLD (hyperlipidemia) Code(s): E78.5 - HYPERLIPIDEMIA, UNSPECIFIED (4) HTN (hypertension) Code(s): I10 - ESSENTIAL (PRIMARY) HYPERTENSION (5) Tremor Code(s): R25.1 - TREMOR, UNSPECIFIED (6) Foot ulcer due to secondary DM Code(s): E13.621 - OTHER SPECIFIED DIABETES MELLITUS WITH FOOT ULCER; L97.509 - NON-PRESSURE CHRONIC ULCER OTH PRT UNSP FOOT W UNSP SEVERITY
[2017-12-25] MEDS: INSULIN SLIDING SCALE (NOVOLOG) 1 VIAL SQ SCH ×5 (07:17→22:36)
[2017-12-25] MEDS: HEPARIN NA (PORCINE) 5,000 UNITS/ML 1ML VIAL SQ SCH ×3 (07:18→22:32)
[2017-12-25] MEDS: INSULIN (NOVOLOG MIX 70/30) 100 UNITS/ML MDV SQ SCH ×2 (07:20→16:34)
[2017-12-25] MEDS: METOCLOPRAMIDE HCL 10 MG TABLET (FP) PO SCH ×3 (07:20→16:29)
[2017-12-25] MEDS: SEVELAMER CARBONATE 800 MG TAB (FP) PO SCH ×3 (08:12→17:45)
[2017-12-25] MEDS: CINACALCET HCL 30 MG TAB (FP) PO SCH (09:06)
[2017-12-25] MEDS: cloNIDine HCL 0.1 MG TABLET PO SCH ×2 (09:06→22:32)
[2017-12-25] MEDS: PANTOPRAZOLE 40 MG TABLET (FP) PO SCH (09:06)
[2017-12-25] MEDS: CEFTRIAXONE IN IS-OSM DEXTROSE 2 GM/50 ML BAG IVPB SCH (09:09)
[2017-12-25] MEDS: ASPIRIN 81 MG CHEWABLE TABLETS PO SCH (09:09)
[2017-12-25] MEDS ORDERED: INSULIN (NOVOLOG) ASPART 100 UNITS/ML 10ML VIAL ONE ×3 (11:34→20:44)
[2017-12-25] MEDS ORDERED: PT OWN MED DRAWER 7, Y5N ONE ×2 (11:58→13:53)
--- NOTE | 2017-12-25 12:00 | PN ---
Progress Note, Physician History of Present Illness: Pt seen and examined. Events noted. Labs/imaging results reviewed. Pt states he feels well. Denies fever/chills/abd pain/n/v/d. Has no specific complaints. - Current Medication List Current Medications: Active Medications Aspirin (Asa -) 81 mg PO DAILY [facility] Last Admin: 12/25/17 09:09 Dose: 81 mg Atorvastatin Calcium (Lipitor -) 40 mg PO HS [facility] Last Admin: 12/24/17 22:41 Dose: 40 mg Cinacalcet (Sensipar -) 60 mg PO DAILY [facility] Last Admin: 12/25/17 09:06 Dose: 60 mg Clonidine (Catapres -) 0.1 mg PO BID [facility] Last Admin: 12/25/17 09:06 Dose: 0.1 mg Collagenase (Santyl -) 1 applic TP DAILY [facility] Last Admin: 12/24/17 14:54 Dose: 1 applic Heparin Sodium (Porcine) (Heparin -) 5,000 unit SQ TID [facility] Last Admin: 12/25/17 07:18 Dose: 5,000 unit CEFTRIAXONE IN IS-OSM DEXTROSE (Ceftriaxone 2 Gm-D5w Bag) 2 gm in 50 mls @ 100 mls/hr IVPB DAILY [facility] Last Admin: 12/25/17 09:09 Dose: 100 mls/hr Insulin Aspart (Novolog Vial Sliding Scale -) 1 vial SQ ACHS [facility] PRN Reason: Protocol Last Admin: 12/25/17 11:43 Dose: 4 units Insulin Aspart (Novolog Mix 70/30 Vial) 40 units SQ BIDAC [facility] Last Admin: 12/25/17 07:20 Dose: Not Given Metoclopramide HCl (Reglan -) 5 mg PO TIDAC [facility] Last Admin: 12/25/17 10:57 Dose: 5 mg Pantoprazole Sodium (Protonix -) 40 mg PO DAILY [facility] Last Admin: 12/25/17 09:06 Dose: 40 mg Sevelamer Carbonate (Renvela -) 2,400 mg PO TIDCM [facility] Last Admin: 12/25/17 08:12 Dose: 2,400 mg - Objective Vital Signs: Vital Signs Temperature 97.6 F 12/25/17 10:00 Pulse Rate 87 12/25/17 10:00 Respiratory Rate 18 12/25/17 10:00 Blood Pressure 129/70 12/25/17 10:00 O2 Sat by Pulse Oximetry (%) 97 12/25/17 09:00 Constitutional: Yes: No Distress Cardiovascular: Yes: Regular Rate and Rhythm Respiratory: Yes: Regular Gastrointestinal: Yes: Normal Bowel Sounds, Soft ...Rectal Exam: Yes: Deferred Wound/Incision: Yes: Other (Rt 4th toe ulcer, without purulence, no tenderness) Neurological: Yes: Alert Labs: CBC, BMP 12/24/17 08:00 12/24/17 08:00 Microbiology 12/21/17 21:00 Blood - Peripheral Venous Blood Culture - Preliminary NO GROWTH OBTAINED AFTER 72 HOURS, INCUBATION TO CONTINUE FOR 2 DAYS. 12/21/17 21:00 Blood - Peripheral Venous Blood Culture - Preliminary NO GROWTH OBTAINED AFTER 72 HOURS, INCUBATION TO CONTINUE FOR 2 DAYS. 12/21/17 20:50 Toe - Right Fourth Gram Stain - Final 12/21/17 20:50 Toe - Right Fourth Wound Culture - Final Proteus Mirabilis Diphtheroid/Corynebacterium - ....Imaging MRI: Report Reviewed (Rt foot soft tissue swelling, 4th toe distal/middle phalanx bone marrow edema) Problem List - Problems (1) ESRD (end stage renal disease) Code(s): N18.6 - END STAGE RENAL DISEASE (2) Dialysis patient Code(s): Z99.2 - DEPENDENCE ON RENAL DIALYSIS (3) Foot ulcer due to secondary DM Code(s): E13.621 - OTHER SPECIFIED DIABETES MELLITUS WITH FOOT ULCER; L97.509 - NON-PRESSURE CHRONIC ULCER OTH PRT UNSP FOOT W UNSP SEVERITY Assessment/Plan IDDM Rt 4th toe infected ulcer/ likely OM - continue Ceftriaxone - continue wound care - pt stable at this time
[2017-12-25] MEDS: COLLAGENASE CLOSTRIDIUM HIST. 30 GRAMS TUBE TP SCH (12:42)
--- NOTE | 2017-12-25 14:14 | CONSULT ---
Consult - text type - Consultation Consultation Note: Patient seen in bed. No complaints. vss, tmax 97.6 vsgi, mri inconclusive for om right foot, left foot wound is resolved,+wound 4th toe with necrotic tissue, no improvement of cellulitis 4th toe right since yesterday and now appears to wet, om? right resolved wound left early gangrenous changes noted HBO consult. DC santyl dressing changes. Change to betadine dressing 4th toe right for next 48 hours, Needs custom molded shoes due to charcot deforimty. Will follow. Post op shoe b/l. Vascular consult Dr. Denis Keller. If cellulitis does not improve anticipate debridement possible in or.
--- NOTE | 2017-12-25 15:48 | PN ---
Progress Note (short form) - Note Progress Note: VAscular Surgery Pt seen and examined. Seen in the past in the hospital. Comes in with 2 week history of right 4th toe discoloration, that has now progressed to gangrene of right 4th toe. Pt does not have any palpable pulses, only dopplerable. Will need to get CTA to check runoff into the foot. Might need angiogram. Will order CTA Lui Keller DO
--- NOTE | 2017-12-25 15:55 | PN ---
Progress Note, Physician History of Present Illness: No new changes - Current Medication List Current Medications: Active Medications Aspirin (Asa -) 81 mg PO DAILY [facility] Last Admin: 12/25/17 09:09 Dose: 81 mg Atorvastatin Calcium (Lipitor -) 40 mg PO HS [facility] Last Admin: 12/24/17 22:41 Dose: 40 mg Cinacalcet (Sensipar -) 60 mg PO DAILY [facility] Last Admin: 12/25/17 09:06 Dose: 60 mg Clonidine (Catapres -) 0.1 mg PO BID [facility] Last Admin: 12/25/17 09:06 Dose: 0.1 mg Collagenase (Santyl -) 1 applic TP DAILY [facility] Last Admin: 12/25/17 12:42 Dose: 1 applic Heparin Sodium (Porcine) (Heparin -) 5,000 unit SQ TID [facility] Last Admin: 12/25/17 14:33 Dose: 5,000 unit CEFTRIAXONE IN IS-OSM DEXTROSE (Ceftriaxone 2 Gm-D5w Bag) 2 gm in 50 mls @ 100 mls/hr IVPB DAILY [facility] Last Admin: 12/25/17 09:09 Dose: 100 mls/hr Insulin Aspart (Novolog Vial Sliding Scale -) 1 vial SQ ACHS [facility] PRN Reason: Protocol Last Admin: 12/25/17 11:43 Dose: 4 units Insulin Aspart (Novolog Mix 70/30 Vial) 40 units SQ BIDAC [facility] Last Admin: 12/25/17 07:20 Dose: Not Given Metoclopramide HCl (Reglan -) 5 mg PO TIDAC [facility] Last Admin: 12/25/17 10:57 Dose: 5 mg Pantoprazole Sodium (Protonix -) 40 mg PO DAILY [facility] Last Admin: 12/25/17 09:06 Dose: 40 mg Sevelamer Carbonate (Renvela -) 2,400 mg PO TIDCM [facility] Last Admin: 12/25/17 12:05 Dose: 2,400 mg - Objective Vital Signs: Vital Signs Temperature 98.3 F 12/25/17 15:24 Pulse Rate 79 12/25/17 15:24 Respiratory Rate 18 12/25/17 15:24 Blood Pressure 115/64 12/25/17 15:24 O2 Sat by Pulse Oximetry (%) 97 12/25/17 09:00 HENT: Yes: WNL Neck: Yes: WNL, Supple Cardiovascular: Yes: WNL, Regular Rate and Rhythm Respiratory: Yes: WNL, Regular, CTA Bilaterally Gastrointestinal: Yes: WNL, Normal Bowel Sounds, Soft, Abdomen, Obese Extremities: Yes: Other (RT foot in dressing) Labs: CBC, BMP 12/24/17 08:00 12/24/17 08:00 Problem List - Problems (1) ESRD (end stage renal disease) Code(s): N18.6 - END STAGE RENAL DISEASE (2) HLD (hyperlipidemia) Code(s): E78.5 - HYPERLIPIDEMIA, UNSPECIFIED (3) HTN (hypertension) Code(s): I10 - ESSENTIAL (PRIMARY) HYPERTENSION (4) Tremor Code(s): R25.1 - TREMOR, UNSPECIFIED (5) Foot ulcer due to secondary DM Code(s): E13.621 - OTHER SPECIFIED DIABETES MELLITUS WITH FOOT ULCER; L97.509 - NON-PRESSURE CHRONIC ULCER OTH PRT UNSP FOOT W UNSP SEVERITY
[2017-12-25] MEDS ORDERED: ALPRAZolam 0.25 MG TABLET PO ONE (16:30)
[2017-12-25] MEDS: ATORVASTATIN CA 40 MG TABLET (FP) PO SCH (22:32)
--- NOTE | 2017-12-25 23:20 | PN ---
Progress Note (short form) - Note Progress Note: This is a 62 year old gentleman with PMhx of ESRD on HD (MWF x 8 years), Hypertension, IDDM slow wound care. Current Medications Aspirin (Asa -) 81 mg PO DAILY [facility] Last Admin: 12/25/17 09:09 Dose: 81 mg Atorvastatin Calcium (Lipitor -) 40 mg PO HS [facility] Last Admin: 12/25/17 22:32 Dose: 40 mg Cinacalcet (Sensipar -) 60 mg PO DAILY [facility] Last Admin: 12/25/17 09:06 Dose: 60 mg Clonidine (Catapres -) 0.1 mg PO BID [facility] Last Admin: 12/25/17 22:32 Dose: 0.1 mg Collagenase (Santyl -) 1 applic TP DAILY [facility] Last Admin: 12/25/17 12:42 Dose: 1 applic Heparin Sodium (Porcine) (Heparin -) 5,000 unit SQ TID [facility] Last Admin: 12/25/17 22:32 Dose: 5,000 unit CEFTRIAXONE IN IS-OSM DEXTROSE (Ceftriaxone 2 Gm-D5w Bag) 2 gm in 50 mls @ 100 mls/hr IVPB DAILY [facility] Last Admin: 12/25/17 09:09 Dose: 100 mls/hr Insulin Aspart (Novolog Vial Sliding Scale -) 1 vial SQ ACHS [facility] PRN Reason: Protocol Last Admin: 12/25/17 22:36 Dose: 6 units Insulin Aspart (Novolog Mix 70/30 Vial) 40 units SQ BIDAC [facility] Last Admin: 12/25/17 16:34 Dose: Not Given Metoclopramide HCl (Reglan -) 5 mg PO TIDAC [facility] Last Admin: 12/25/17 16:29 Dose: 5 mg Pantoprazole Sodium (Protonix -) 40 mg PO DAILY [facility] Last Admin: 12/25/17 09:06 Dose: 40 mg Sevelamer Carbonate (Renvela -) 2,400 mg PO TIDCM [facility] Last Admin: 12/25/17 17:45 Dose: 2,400 mg Last Vital Signs Temp Pulse Resp BP Pulse Ox 98.2 F 71 18 147/86 97 12/25/17 18:00 18 18:00 18 18:00 12/25/17 18:00 12/25/17 09:00 CBC, BMP 12/24/17 08:00 12/24/17 08:00 Plan- next hd on wednesday
[2017-12-26] MEDS: HEPARIN NA (PORCINE) 5,000 UNITS/ML 1ML VIAL SQ SCH ×3 (06:24→22:17)
[2017-12-26] MEDS: INSULIN SLIDING SCALE (NOVOLOG) 1 VIAL SQ SCH ×4 (06:26→22:17)
[2017-12-26] MEDS: METOCLOPRAMIDE HCL 10 MG TABLET (FP) PO SCH ×3 (06:32→16:57)
[2017-12-26] MEDS: SEVELAMER CARBONATE 800 MG TAB (FP) PO SCH ×3 (08:19→17:41)
[2017-12-26] MEDS: INSULIN (NOVOLOG MIX 70/30) 100 UNITS/ML MDV SQ SCH ×2 (08:23→17:43)
[2017-12-26] MEDS: ASPIRIN 81 MG CHEWABLE TABLETS PO SCH (09:44)
[2017-12-26] MEDS: cloNIDine HCL 0.1 MG TABLET PO SCH ×2 (09:44→22:19)
[2017-12-26] MEDS: CINACALCET HCL 30 MG TAB (FP) PO SCH (09:44)
[2017-12-26] MEDS: CEFTRIAXONE IN IS-OSM DEXTROSE 2 GM/50 ML BAG IVPB SCH (09:44)
[2017-12-26] MEDS: PANTOPRAZOLE 40 MG TABLET (FP) PO SCH (09:44)
[2017-12-26] MEDS: COLLAGENASE CLOSTRIDIUM HIST. 30 GRAMS TUBE TP SCH (09:45)
--- NOTE | 2017-12-26 13:14 | PN ---
Progress Note, Physician History of Present Illness: Pt afebrile. Vascular evaluation noted. Pt denies pain. - Current Medication List Current Medications: Active Medications Aspirin (Asa -) 81 mg PO DAILY [facility] Last Admin: 12/26/17 09:44 Dose: 81 mg Atorvastatin Calcium (Lipitor -) 40 mg PO HS [facility] Last Admin: 12/25/17 22:32 Dose: 40 mg Cinacalcet (Sensipar -) 60 mg PO DAILY [facility] Last Admin: 12/26/17 09:44 Dose: 60 mg Clonidine (Catapres -) 0.1 mg PO BID [facility] Last Admin: 12/26/17 09:44 Dose: 0.1 mg Collagenase (Santyl -) 1 applic TP DAILY [facility] Last Admin: 12/26/17 09:45 Dose: Not Given Heparin Sodium (Porcine) (Heparin -) 5,000 unit SQ TID [facility] Last Admin: 12/26/17 06:24 Dose: 5,000 unit CEFTRIAXONE IN IS-OSM DEXTROSE (Ceftriaxone 2 Gm-D5w Bag) 2 gm in 50 mls @ 100 mls/hr IVPB DAILY [facility] Last Admin: 12/26/17 09:44 Dose: 100 mls/hr Insulin Aspart (Novolog Vial Sliding Scale -) 1 vial SQ ACHS [facility] PRN Reason: Protocol Last Admin: 12/26/17 11:15 Dose: 4 units Insulin Aspart (Novolog Mix 70/30 Vial) 40 units SQ BIDAC [facility] Last Admin: 12/26/17 08:23 Dose: Not Given Metoclopramide HCl (Reglan -) 5 mg PO TIDAC [facility] Last Admin: 12/26/17 11:12 Dose: 5 mg Pantoprazole Sodium (Protonix -) 40 mg PO DAILY [facility] Last Admin: 12/26/17 09:44 Dose: 40 mg Sevelamer Carbonate (Renvela -) 2,400 mg PO TIDCM [facility] Last Admin: 12/26/17 08:19 Dose: 2,400 mg - Objective Vital Signs: Vital Signs Temperature 98.0 F 12/26/17 10:00 Pulse Rate 78 12/26/17 10:00 Respiratory Rate 18 12/26/17 10:00 Blood Pressure 132/70 12/26/17 10:00 O2 Sat by Pulse Oximetry (%) 97 12/26/17 09:00 Constitutional: Yes: No Distress Cardiovascular: Yes: Regular Rate and Rhythm Respiratory: Yes: Regular Gastrointestinal: Yes: Normal Bowel Sounds, Soft Extremities: Yes: Other (Rt 4th toe necrotic, darkened discoloration/gangrenous , Rt foot edema) Neurological: Yes: Alert Labs: CBC, BMP 12/24/17 08:00 12/24/17 08:00 Problem List - Problems (1) ESRD (end stage renal disease) Code(s): N18.6 - END STAGE RENAL DISEASE (2) Dialysis patient Code(s): Z99.2 - DEPENDENCE ON RENAL DIALYSIS (3) Foot ulcer due to secondary DM Code(s): E13.621 - OTHER SPECIFIED DIABETES MELLITUS WITH FOOT ULCER; L97.509 - NON-PRESSURE CHRONIC ULCER OTH PRT UNSP FOOT W UNSP SEVERITY Assessment/Plan Rt 4th toe infected ulcer/ Gangrene/ OM ESRD on IDDM - d/c Ceftriaxone, start Zosyn IV, one dose Vancomycin, then post HD - Vascular surgery following, CTA planned - continue wound care
[2017-12-26] MEDS ORDERED: PIPERACILLIN/TAZOB 2.25 GM/50 ML PREMIX BAG IVPB SCH (13:30)
[2017-12-26] MEDS ORDERED: VANCOMYCIN 1,000 MG in DEXTROSE 5%-WATER - 250 ML IVPB ONE (14:15)
[2017-12-26] MEDS: PIPERACILLIN/TAZOB 2.25 GM 2.25 GM in DEXTROSE 5%-WATER - 50 ML IVPB SCH ×2 (14:55→18:42)
[2017-12-26] MEDS ORDERED: PT OWN MED DRAWER 7, Y5N ONE (18:51)
[2017-12-26] MEDS ORDERED: INSULIN (NOVOLOG) ASPART 100 UNITS/ML 10ML VIAL ONE ×2 (18:52→22:16)
[2017-12-26] MEDS: ATORVASTATIN CA 40 MG TABLET (FP) PO SCH (22:17)
--- NOTE | 2017-12-26 22:58 | PN ---
Progress Note, Physician - Current Medication List Current Medications: Active Medications Aspirin (Asa -) 81 mg PO DAILY [facility] Last Admin: 12/26/17 09:44 Dose: 81 mg Atorvastatin Calcium (Lipitor -) 40 mg PO HS [facility] Last Admin: 12/26/17 22:17 Dose: 40 mg Cinacalcet (Sensipar -) 60 mg PO DAILY [facility] Last Admin: 12/26/17 09:44 Dose: 60 mg Clonidine (Catapres -) 0.1 mg PO BID [facility] Last Admin: 12/26/17 22:19 Dose: 0.1 mg Collagenase (Santyl -) 1 applic TP DAILY [facility] Last Admin: 12/26/17 09:45 Dose: Not Given Heparin Sodium (Porcine) (Heparin -) 5,000 unit SQ TID [facility] Last Admin: 12/26/17 22:17 Dose: 5,000 unit Piperacillin Sod/Tazobactam (Sod 2.25 gm/ Dextrose) 50 mls @ 100 mls/hr IVPB Q8H-IV [facility] Last Admin: 12/26/17 18:42 Dose: 100 mls/hr Insulin Aspart (Novolog Vial Sliding Scale -) 1 vial SQ ACHS [facility] PRN Reason: Protocol Last Admin: 12/26/17 22:17 Dose: 4 units Insulin Aspart (Novolog Mix 70/30 Vial) 40 units SQ BIDAC [facility] Last Admin: 12/26/17 17:43 Dose: 40 units Metoclopramide HCl (Reglan -) 5 mg PO TIDAC [facility] Last Admin: 12/26/17 16:57 Dose: 5 mg Pantoprazole Sodium (Protonix -) 40 mg PO DAILY [facility] Last Admin: 12/26/17 09:44 Dose: 40 mg Sevelamer Carbonate (Renvela -) 2,400 mg PO TIDCM [facility] Last Admin: 12/26/17 17:41 Dose: 2,400 mg - Objective Vital Signs: Vital Signs Temperature 97.8 F 12/26/17 18:58 Pulse Rate 74 12/26/17 18:58 Respiratory Rate 14 12/26/17 18:58 Blood Pressure 135/65 12/26/17 18:58 O2 Sat by Pulse Oximetry (%) 97 12/26/17 09:00 Constitutional: Yes: Well Nourished Neck: Yes: WNL, Supple Cardiovascular: Yes: WNL, Regular Rate and Rhythm Respiratory: Yes: WNL, Regular, CTA Bilaterally Gastrointestinal: Yes: WNL, Normal Bowel Sounds, Soft Extremities: Yes: Other (RT 4th toe w/ eschar/gangrene) Labs: CBC, BMP 12/24/17 08:00 12/24/17 08:00 Problem List - Problems (1) Foot ulcer due to secondary DM Assessment/Plan: ?osteo Awaiting CTA As per vascular IV antibxs changed as per ID Code(s): E13.621 - OTHER SPECIFIED DIABETES MELLITUS WITH FOOT ULCER; L97.509 - NON-PRESSURE CHRONIC ULCER OTH PRT UNSP FOOT W UNSP SEVERITY (2) Diabetes Assessment/Plan: Cont sliding scale w/ coverage Code(s): E11.9 - TYPE 2 DIABETES MELLITUS WITHOUT COMPLICATIONS (3) ESRD (end stage renal disease) Code(s): N18.6 - END STAGE RENAL DISEASE (4) HLD (hyperlipidemia) Code(s): E78.5 - HYPERLIPIDEMIA, UNSPECIFIED (5) HTN (hypertension) Code(s): I10 - ESSENTIAL (PRIMARY) HYPERTENSION
[2017-12-27] MEDS: PIPERACILLIN/TAZOB 2.25 GM 2.25 GM in DEXTROSE 5%-WATER - 50 ML IVPB SCH ×3 (02:15→17:25)
[2017-12-27] MEDS: METOCLOPRAMIDE HCL 10 MG TABLET (FP) PO SCH ×3 (06:32→17:24)
[2017-12-27] MEDS: INSULIN SLIDING SCALE (NOVOLOG) 1 VIAL SQ SCH ×4 (06:33→22:43)
[2017-12-27] MEDS: HEPARIN NA (PORCINE) 5,000 UNITS/ML 1ML VIAL SQ SCH ×3 (06:33→22:43)
[2017-12-27] MEDS ORDERED: PT OWN MED DRAWER 7, Y5N ONE ×2 (09:55→17:21)
[2017-12-27] MEDS: ASPIRIN 81 MG CHEWABLE TABLETS PO SCH (09:56)
[2017-12-27] MEDS: PANTOPRAZOLE 40 MG TABLET (FP) PO SCH (09:56)
[2017-12-27] MEDS: SEVELAMER CARBONATE 800 MG TAB (FP) PO SCH ×3 (09:56→17:24)
[2017-12-27] MEDS: CINACALCET HCL 30 MG TAB (FP) PO SCH (09:56)
[2017-12-27] MEDS: cloNIDine HCL 0.1 MG TABLET PO SCH ×2 (09:57→22:43)
[2017-12-27] MEDS: COLLAGENASE CLOSTRIDIUM HIST. 30 GRAMS TUBE TP SCH (09:57)
--- NOTE | 2017-12-27 11:40 | PN ---
Progress Note (short form) - Note Progress Note: Renal follow up for ESRD on HD Pt seen and examined at the bedside reports spastic movement of his UE bilaterally no AMS, confusion, bowel or bladder incontiance no sob, chest pain, abd pain no pain in his foot Vital Signs Temperature 97.7 F 12/27/17 06:00 Pulse Rate 76 12/27/17 06:00 Respiratory Rate 18 12/27/17 06:00 Blood Pressure 143/78 12/27/17 06:00 O2 Sat by Pulse Oximetry (%) 97 12/26/17 09:00 Intake & Output 12/24/17 12/25/17 12/26/17 12/27/17 23:59 23:59 23:59 23:59 Intake Total 1250 150 550 50 Balance 1250 150 550 50 NAD awake and alert RRR CTA soft NT/ND No LE edema CBC, BMP 12/24/17 08:00 12/24/17 08:00 Current Medications Aspirin (Asa -) 81 mg PO DAILY [facility] Last Admin: 12/27/17 09:56 Dose: 81 mg Atorvastatin Calcium (Lipitor -) 40 mg PO HS [facility] Last Admin: 12/26/17 22:17 Dose: 40 mg Cinacalcet (Sensipar -) 60 mg PO DAILY [facility] Last Admin: 12/27/17 09:56 Dose: 60 mg Clonidine (Catapres -) 0.1 mg PO BID [facility] Last Admin: 12/27/17 09:57 Dose: Not Given Collagenase (Santyl -) 1 applic TP DAILY [facility] Last Admin: 12/27/17 09:57 Dose: Not Given Heparin Sodium (Porcine) (Heparin -) 5,000 unit SQ TID [facility] Last Admin: 12/27/17 06:33 Dose: 5,000 unit Piperacillin Sod/Tazobactam (Sod 2.25 gm/ Dextrose) 50 mls @ 100 mls/hr IVPB Q8H-IV [facility] Last Admin: 12/27/17 09:56 Dose: 100 mls/hr Insulin Aspart (Novolog Vial Sliding Scale -) 1 vial SQ ACHS [facility] PRN Reason: Protocol Last Admin: 12/27/17 06:33 Dose: Not Given Insulin Aspart (Novolog Mix 70/30 Vial) 40 units SQ BIDAC [facility] Last Admin: 12/26/17 17:43 Dose: 40 units Metoclopramide HCl (Reglan -) 5 mg PO TIDAC [facility] Last Admin: 12/27/17 06:32 Dose: 5 mg Pantoprazole Sodium (Protonix -) 40 mg PO DAILY [facility] Last Admin: 12/27/17 09:56 Dose: 40 mg Sevelamer Carbonate (Renvela -) 2,400 mg PO TIDCM [facility] Last Admin: 12/27/17 09:56 Dose: 2,400 mg A/P 62 year old gentleman with PMhx of ESRD on HD (MWF x 8 years), Hypertension, IDDM who was referred from wound car to the ED for further management of his Right LE wound on his foot. #Suspected soft tissue infection vs osteomylitis of right LE Will continue Vanco with HD Zosyn as per ID #ESRD on HD for dialysis today as inpatient today UF as tolerated #Renal Osteodystrophy check Phos continue renvela Thank you Will follow Meet Pedro DO
--- NOTE | 2017-12-27 11:41 | PN ---
Progress Note, Physician History of Present Illness: doing well no issues podiatry following the patient - Current Medication List Current Medications: Active Medications Aspirin (Asa -) 81 mg PO DAILY [facility] Last Admin: 12/27/17 09:56 Dose: 81 mg Atorvastatin Calcium (Lipitor -) 40 mg PO HS [facility] Last Admin: 12/26/17 22:17 Dose: 40 mg Cinacalcet (Sensipar -) 60 mg PO DAILY [facility] Last Admin: 12/27/17 09:56 Dose: 60 mg Clonidine (Catapres -) 0.1 mg PO BID [facility] Last Admin: 12/27/17 09:57 Dose: Not Given Collagenase (Santyl -) 1 applic TP DAILY [facility] Last Admin: 12/27/17 09:57 Dose: Not Given Heparin Sodium (Porcine) (Heparin -) 5,000 unit SQ TID [facility] Last Admin: 12/27/17 06:33 Dose: 5,000 unit Piperacillin Sod/Tazobactam (Sod 2.25 gm/ Dextrose) 50 mls @ 100 mls/hr IVPB Q8H-IV [facility] Last Admin: 12/27/17 09:56 Dose: 100 mls/hr Vancomycin HCl 1,000 mg/ (Dextrose) 250 mls @ 250 mls/hr IVPB ONCE ONE PRN Reason: Protocol Stop: 12/27/17 12:38 Insulin Aspart (Novolog Vial Sliding Scale -) 1 vial SQ ACHS [facility] PRN Reason: Protocol Last Admin: 12/27/17 06:33 Dose: Not Given Insulin Aspart (Novolog Mix 70/30 Vial) 40 units SQ BIDAC [facility] Last Admin: 12/26/17 17:43 Dose: 40 units Metoclopramide HCl (Reglan -) 5 mg PO TIDAC [facility] Last Admin: 12/27/17 06:32 Dose: 5 mg Pantoprazole Sodium (Protonix -) 40 mg PO DAILY [facility] Last Admin: 12/27/17 09:56 Dose: 40 mg Sevelamer Carbonate (Renvela -) 2,400 mg PO TIDCM [facility] Last Admin: 12/27/17 09:56 Dose: 2,400 mg - Objective Vital Signs: Vital Signs Temperature 97.7 F 12/27/17 06:00 Pulse Rate 76 12/27/17 06:00 Respiratory Rate 18 12/27/17 06:00 Blood Pressure 143/78 12/27/17 06:00 O2 Sat by Pulse Oximetry (%) 97 12/26/17 09:00 Constitutional: Yes: No Distress, Calm, Obese Cardiovascular: Yes: Regular Rate and Rhythm Respiratory: Yes: Regular, CTA Bilaterally Gastrointestinal: Yes: Normal Bowel Sounds, Soft Musculoskeletal: Yes: WNL Extremities: Yes: Other Wound/Incision: Yes: Dressing Dry and Intact Neurological: Yes: Alert, Oriented Psychiatric: Yes: Alert, Oriented Labs: CBC, BMP 12/24/17 08:00 12/24/17 08:00 Assessment/Plan looking at the wound and the patients history i suspect patient could very well have osteo osteo no healing wound of the rt leg obesity wound infection esrd plan continue iv abx continue dialysis rest as per primary
--- NOTE | 2017-12-27 13:01 | CONSULT ---
Consult - text type - Consultation Consultation Note: Neurology History of Present Illness: Pt is a 62 y/o morbidly obese male with PMH significant for HTN, IDDM, CKD ( dialysis M/W/F) who was sent down from wound center for admission for right toe infection. The patient states the fourth toe of his right foot has been infected for 1 week and wasn't mproving, despite wound care. The patient was seen in the wound center and sent to the ER for admission for IV antibiotics and to r/o osteomyelitis. I was consulted for history of "seizures". He reports for many years he has tremouloussness that occurs. When he is calm, no symptoms , but can have feeling of shaking when not calm and spontaneously. Denies changes in consciousness and does not lose awareness. No tongue biting or incontinence. Therefore, not likely seizures. Seems more consistent with anxiety /benign tremor. - Past Medical History Cardiovascular: Yes: HTN Endocrine: Yes: Diabetes Mellitus - Smoking History Smoking history: Never smoked Have you smoked in the past 12 months: No - Alcohol/Substance Use Hx Alcohol Use: No Home Medications - Allergies Allergies/Adverse Reactions: Allergies Allergy/AdvReac Type Severity Reaction Status Date / Time No Known Allergies Allergy Verified 12/21/17 16:36 - Home Medications Home Medications: Ambulatory Orders Cinacalcet HCl [Sensipar] 60 mg PO DAILY 09/28/14 Hum Insulin NPH/Reg Insulin Hm [Novolin 70-30 U100 Cartridge] 40 unit SQ BID Aspirin [ASA -] 81 mg PO DAILY #30 tab.chew 10/03/14 Atorvastatin Ca [Lipitor] 40 mg PO HS #30 tablet 10/03/14 cloNIDine HCL [Catapres -] 0.1 mg PO BID #60 tablet 10/03/14 Pantoprazole Sodium [Protonix -] 40 mg PO DAILY 11/20/14 Metoclopramide HCl [Reglan] 5 mg PO TID #0 tablet 04/28/16 Pantoprazole Sodium [Protonix] 40 mg PO DAILY #0 tablet. 04/28/16 Sevelamer Carbonate [Renvela -] 2,400 mg PO TID 04/28/16 Family Disease History - Family Disease History Family History: Unremarkable Review of Systems - Review of Systems Constitutional: reports: No Symptoms Eyes: reports: No Symptoms HENT: reports: No Symptoms Neck: reports: No Symptoms Cardiovascular: reports: No Symptoms Respiratory: reports: No Symptoms Gastrointestinal: reports: No Symptoms Physical Examination Vital Signs: Vital Signs Temperature 97.7 F 12/21/17 16:37 Pulse Rate 97 H 12/21/17 16:37 Respiratory Rate 18 12/21/17 16:37 Blood Pressure 135/76 12/21/17 16:37 O2 Sat by Pulse Oximetry (%) 98 12/22/17 02:00 Constitutional: Yes: Well Nourished HENT: Yes: WNL Neck: Yes: WNL, Supple Cardiovascular: Yes: WNL, Regular Rate and Rhythm Respiratory: Yes: WNL, Regular, CTA Bilaterally Gastrointestinal: Yes: WNL, Normal Bowel Sounds, Soft, Abdomen, Obese Extremities: Yes: Other (LUE AVF Rt 4th toe w/ eschar) Neurological: Yes: WNL, Alert, Oriented, CN intact, sensory normal, strength symetric, gait deferred CBCD WBC 8.0 K/mm3 (4.0-10.0) 12/22/17 06:10 RBC 4.34 M/mm3 (4.00-5.60) 12/22/17 06:10 Hgb 12.5 GM/dL (11.7-16.9) 12/22/17 06:10 Hct 38.4 % (35.4-49) 12/22/17 06:10 MCV 88.5 fl (80-96) 12/22/17 06:10 MCHC 32.6 g/dl (32.0-35.9) 12/22/17 06:10 RDW 16.0 % (11.9-15.9) H 12/22/17 06:10 Plt Count 166 K/MM3 (134-434) 12/22/17 06:10 MPV 9.1 fl (7.5-11.1) 12/22/17 06:10 CMP Sodium 135 mmol/L (136-145) L 12/24/17 08:00 Potassium 4.7 mmol/L (3.5-5.1) 12/24/17 08:00 Chloride 96 mmol/L (98-107) L 12/24/17 08:00 Carbon Dioxide 28 mmol/L (21-32) 12/24/17 08:00 Anion Gap 11 (8-16) 12/24/17 08:00 BUN 48 mg/dL (7-18) H 12/24/17 08:00 Creatinine 9.8 mg/dL (0.7-1.3) H* 12/24/17 08:00 Creat Clearance w eGFR 5.29 (>60) 12/22/17 06:10 Calcium 7.5 mg/dL (8.5-10.1) L 12/24/17 08:00 Total Bilirubin 0.8 mg/dL (0.2-1.0) D 12/22/17 06:10 AST 6 U/L (15-37) L D 12/22/17 06:10 ALT 14 U/L (12-78) 12/22/17 06:10 Alkaline Phosphatase 122 U/L (45-117) H 12/22/17 06:10 Total Protein 7.4 g/dl (6.4-8.2) 12/22/17 06:10 Albumin 3.0 g/dl (3.4-5.0) L 12/22/17 06:10 Plan: 62 y/o morbidly obese male with PMH significant for HTN, IDDM, CKD (dialysis M/W /F) who was sent down from wound center for admission for right toe infection. The patient states the fourth toe of his right foot has been infected for 1 week and wasn't mproving, despite wound care. The patient was seen in the wound center and sent to the ER for admission for IV antibiotics and to r/o osteomyelitis. I was consulted for history of "seizures". Denies changes in consciousness and does not lose awareness. No tongue biting or incontinence. Therefore, not likely seizures. Seems more consistent with anxiety/benign tremor States he was given a medication in the past for it and will obtain name from his I would not add AEDs at this time If needed, could give a muscle relaxant (baclofen or cyclobenzaprine) Continue mgmt of Cellulitis Monitor DM, hypo and hyperglycemia can present with tremoulousness Continue BP control, maintain normotensive range
--- NOTE | 2017-12-27 13:36 | PN ---
Progress Note (short form) - Note Progress Note: Awaiting official reuslts of CTA with runoff
[2017-12-27 13:53] LABS: HEMATOCRIT 35.4 % (35.4-49); HEMOGLOBIN 11.6 GM/dL (11.7-16.9); LYMPH % 19.7 % (8-40); MCH 28.6 pg (25.7-33.7); MCHC 32.8 g/dl (32.0-35.9); MEAN CELL VOLUME 87.3 fl (80-96); MEAN PLT VOLUME 9.2 fl (7.5-11.1); MONO % 4.3 % (3.8-10.2); PLATELET COUNT 170 K/MM3 (134-434); RBC 4.05 M/mm3 (4.00-5.60); RDW 15.4 % (11.9-15.9); WHITE BLOOD COUNT 5.7 K/mm3 (4.0-10.0)
[2017-12-27] MEDS ORDERED: VANCOMYCIN 1,000 MG in DEXTROSE 5%-WATER - 250 ML IVPB ONE (14:45)
[2017-12-27 15:12] LABS: ALBUMIN 2.6 g/dl (3.4-5.0); ANION GAP 13 (8-16); BILIRUBIN,TOTAL 0.3 mg/dL (0.2-1.0); BLOOD UREA NITROGEN 54 mg/dL (7-18); CALCIUM 7.1 mg/dL (8.5-10.1); CHLORIDE 95 mmol/L (98-107); CO2 25 mmol/L (21-32); GLUCOSE,RANDOM 184 mg/dL (74-106); POTASSIUM 4.3 mmol/L (3.5-5.1); SGOT/AST 6 U/L (15-37); SGPT/ALT 6 U/L (12-78); SODIUM 133 mmol/L (136-145); TOT PROT 6.9 g/dl (6.4-8.2)
[2017-12-27 15:17] LABS: ALK PHOS 107 U/L (45-117)
[2017-12-27 15:28] LABS: CREATININE 9.9 mg/dL (0.7-1.3)
[2017-12-27] MEDS: INSULIN (NOVOLOG MIX 70/30) 100 UNITS/ML MDV SQ SCH (17:28)
--- NOTE | 2017-12-27 17:39 | PN ---
Progress Note (short form) - Note Progress Note: VAscular Surgery Pt seen and examined. CTA reviewed. Right leg -- no signs of any stenosis. Three vessel runoff to foot. On physical exam -- can palpate right DP and popliteal pulse . Cleared from vascular standpoint for podiatry intervention. Lui holbrook DO
--- NOTE | 2017-12-27 22:33 | PN ---
Progress Note, Physician History of Present Illness: Pt has sensation at times that he may have seizure? Pt is a poor historian who states that when he feels tremuolous he calls these episodes seizures in the past? However he was on clonazepam in the past wc he states he took whenever he felt these tremors but hasn't taken it in many years - Current Medication List Current Medications: Active Medications Aspirin (Asa -) 81 mg PO DAILY [facility] Last Admin: 12/27/17 09:56 Dose: 81 mg Atorvastatin Calcium (Lipitor -) 40 mg PO HS [facility] Last Admin: 12/26/17 22:17 Dose: 40 mg Cinacalcet (Sensipar -) 60 mg PO DAILY [facility] Last Admin: 12/27/17 09:56 Dose: 60 mg Clonidine (Catapres -) 0.1 mg PO BID [facility] Last Admin: 12/27/17 09:57 Dose: Not Given Collagenase (Santyl -) 1 applic TP DAILY [facility] Last Admin: 12/27/17 09:57 Dose: Not Given Heparin Sodium (Porcine) (Heparin -) 5,000 unit SQ TID [facility] Last Admin: 12/27/17 14:23 Dose: 5,000 unit Piperacillin Sod/Tazobactam (Sod 2.25 gm/ Dextrose) 50 mls @ 100 mls/hr IVPB Q8H-IV [facility] Last Admin: 12/27/17 17:25 Dose: 100 mls/hr Insulin Aspart (Novolog Vial Sliding Scale -) 1 vial SQ ACHS [facility] PRN Reason: Protocol Last Admin: 12/27/17 17:30 Dose: 8 units Insulin Aspart (Novolog Mix 70/30 Vial) 40 units SQ BIDAC [facility] Last Admin: 12/27/17 17:28 Dose: 40 units Metoclopramide HCl (Reglan -) 5 mg PO TIDAC [facility] Last Admin: 12/27/17 17:24 Dose: 5 mg Pantoprazole Sodium (Protonix -) 40 mg PO DAILY [facility] Last Admin: 12/27/17 09:56 Dose: 40 mg Sevelamer Carbonate (Renvela -) 2,400 mg PO TIDCM [facility] Last Admin: 12/27/17 17:24 Dose: 2,400 mg - Objective Vital Signs: Vital Signs Temperature 98 F 12/27/17 19:59 Pulse Rate 76 12/27/17 19:59 Respiratory Rate 19 12/27/17 19:59 Blood Pressure 115/62 12/27/17 19:59 O2 Sat by Pulse Oximetry (%) 100 12/27/17 09:00 Constitutional: Yes: Well Nourished Neck: Yes: WNL, Supple Cardiovascular: Yes: WNL, Regular Rate and Rhythm Respiratory: Yes: WNL, Regular, CTA Bilaterally Gastrointestinal: Yes: WNL, Normal Bowel Sounds, Soft Extremities: Yes: Other (Rt 4th toes w/ eschar) Labs: CBC, BMP 12/27/17 13:00 12/27/17 13:00 Problem List - Problems (1) Foot ulcer due to secondary DM Assessment/Plan: ?osteo Awaiting CTA resukts As per vascular no further intervention IV antibxs Code(s): E13.621 - OTHER SPECIFIED DIABETES MELLITUS WITH FOOT ULCER; L97.509 - NON-PRESSURE CHRONIC ULCER OTH PRT UNSP FOOT W UNSP SEVERITY (2) Diabetes Assessment/Plan: Cont sliding scale w/ coverage and NPH Code(s): E11.9 - TYPE 2 DIABETES MELLITUS WITHOUT COMPLICATIONS (3) ESRD (end stage renal disease) Assessment/Plan: Dialysis as per renal Code(s): N18.6 - END STAGE RENAL DISEASE (4) HLD (hyperlipidemia) Assessment/Plan: Cont lipitor Code(s): E78.5 - HYPERLIPIDEMIA, UNSPECIFIED (5) HTN (hypertension) Assessment/Plan: BP stable Cont clonidine Code(s): I10 - ESSENTIAL (PRIMARY) HYPERTENSION (6) Tremor Assessment/Plan: Neuro [id number] noted Unlikely seizure ?Benign essential tremor vs anxiety Cont to monitor Code(s): R25.1 - TREMOR, UNSPECIFIED
[2017-12-27] MEDS: ATORVASTATIN CA 40 MG TABLET (FP) PO SCH (22:43)
[2017-12-28] MEDS ORDERED: PT OWN MED DRAWER 7, Y5N ONE ×4 (02:42→17:26)
[2017-12-28] MEDS: PIPERACILLIN/TAZOB 2.25 GM 2.25 GM in DEXTROSE 5%-WATER - 50 ML IVPB SCH ×3 (02:50→18:31)
[2017-12-28] MEDS: HEPARIN NA (PORCINE) 5,000 UNITS/ML 1ML VIAL SQ SCH ×3 (06:23→22:05)
[2017-12-28] MEDS: METOCLOPRAMIDE HCL 10 MG TABLET (FP) PO SCH ×3 (06:23→18:43)
[2017-12-28] MEDS: INSULIN SLIDING SCALE (NOVOLOG) 1 VIAL SQ SCH ×4 (06:25→22:05)
[2017-12-28] MEDS: INSULIN (NOVOLOG MIX 70/30) 100 UNITS/ML MDV SQ SCH ×3 (06:27→19:53)
[2017-12-28 08:03] LABS: CHLORIDE 94 mmol/L (98-107); POTASSIUM 4.7 mmol/L (3.5-5.1); SODIUM 137 mmol/L (136-145)
[2017-12-28 08:14] LABS: BASO % 0.5 % (0-2.0); HEMATOCRIT 35.6 % (35.4-49); HEMOGLOBIN 11.7 GM/dL (11.7-16.9); LYMPH % 15.7 % (8-40); MCH 28.7 pg (25.7-33.7); MCHC 32.8 g/dl (32.0-35.9); MEAN CELL VOLUME 87.6 fl (80-96); MEAN PLT VOLUME 9.2 fl (7.5-11.1); MONO % 10.5 % (3.8-10.2); NEUT % 71.3 % (42.8-82.8); PLATELET COUNT 196 K/MM3 (134-434); RBC 4.06 M/mm3 (4.00-5.60); RDW 15.7 % (11.9-15.9)
[2017-12-28 08:17] LABS: ALBUMIN 2.7 g/dl (3.4-5.0); ALK PHOS 103 U/L (45-117); ANION GAP 12 (8-16); BILIRUBIN,TOTAL 0.5 mg/dL (0.2-1.0); BLOOD UREA NITROGEN 40 mg/dL (7-18); CO2 31 mmol/L (21-32); GLUCOSE,RANDOM 67 mg/dL (74-106); SGOT/AST 9 U/L (15-37); SGPT/ALT 7 U/L (12-78); TOT PROT 7.3 g/dl (6.4-8.2)
[2017-12-28 08:42] LABS: CREATININE 8.4 mg/dL (0.7-1.3)
[2017-12-28] MEDS: SEVELAMER CARBONATE 800 MG TAB (FP) PO SCH ×3 (09:11→18:00)
[2017-12-28] MEDS: cloNIDine HCL 0.1 MG TABLET PO SCH ×2 (09:11→22:05)
[2017-12-28] MEDS: ASPIRIN 81 MG CHEWABLE TABLETS PO SCH (09:12)
[2017-12-28] MEDS: PANTOPRAZOLE 40 MG TABLET (FP) PO SCH (09:12)
[2017-12-28] MEDS: CINACALCET HCL 30 MG TAB (FP) PO SCH (09:12)
--- NOTE | 2017-12-28 09:55 | PN ---
Progress Note (short form) - Note Progress Note: Neurology History of Present Illness: Pt is a 62 y/o morbidly obese male with PMH significant for HTN, IDDM, CKD ( dialysis M/W/F) who was sent down from wound center for admission for right toe infection. The patient states the fourth toe of his right foot has been infected for 1 week and wasn't improving, despite wound care. The patient was seen in the wound center and sent to the ER for admission for IV antibiotics and to r/o osteomyelitis. I was consulted for history of "seizures". He reports for many years he has tremouloussness that occurs. When he is calm, no symptoms , but can have feeling of shaking when not calm and spontaneously. Denies changes in consciousness and does not lose awareness. No tongue biting or incontinence. Therefore, not likely seizures. Seems more consistent with anxiety /benign tremor. He was able to tell me the medication he was on in the past which is Clonazepam, which makes it more likely to be anxiety related. Would not start it now as he remains stable and did not visualize any tremors this AM. Home Medications - Allergies Allergies/Adverse Reactions: Allergies Allergy/AdvReac Type Severity Reaction Status Date / Time No Known Allergies Allergy Verified 12/21/17 16:36 - Home Medications Home Medications: Ambulatory Orders Cinacalcet HCl [Sensipar] 60 mg PO DAILY 09/28/14 Hum Insulin NPH/Reg Insulin Hm [Novolin 70-30 U100 Cartridge] 40 unit SQ BID Aspirin [ASA -] 81 mg PO DAILY #30 tab.chew 10/03/14 Atorvastatin Ca [Lipitor] 40 mg PO HS #30 tablet 10/03/14 cloNIDine HCL [Catapres -] 0.1 mg PO BID #60 tablet 10/03/14 Pantoprazole Sodium [Protonix -] 40 mg PO DAILY 11/20/14 Metoclopramide HCl [Reglan] 5 mg PO TID #0 tablet 04/28/16 Pantoprazole Sodium [Protonix] 40 mg PO DAILY #0 tablet. 04/28/16 Sevelamer Carbonate [Renvela -] 2,400 mg PO TID 04/28/16 Family Disease History - Family Disease History Family History: Unremarkable Review of Systems - Review of Systems Constitutional: reports: No Symptoms Eyes: reports: No Symptoms HENT: reports: No Symptoms Neck: reports: No Symptoms Cardiovascular: reports: No Symptoms Respiratory: reports: No Symptoms Gastrointestinal: reports: No Symptoms Physical Examination Vital Signs: Vital Signs Temperature 97.8 F 12/28/17 09:00 Pulse Rate 77 12/28/17 09:00 Respiratory Rate 20 12/28/17 09:00 Blood Pressure 131/68 12/28/17 09:00 O2 Sat by Pulse Oximetry (%) 99 12/28/17 09:20 Constitutional: Yes: Well Nourished HENT: Yes: WNL Neck: Yes: WNL, Supple Cardiovascular: Yes: WNL, Regular Rate and Rhythm Respiratory: Yes: WNL, Regular, CTA Bilaterally Gastrointestinal: Yes: WNL, Normal Bowel Sounds, Soft, Abdomen, Obese Extremities: Yes: Other (LUE AVF Rt 4th toe w/ eschar) Neurological: Yes: WNL, Alert, Oriented, CN intact, sensory normal, strength symetric, gait deferred CBCD WBC 9.0 K/mm3 (4.0-10.0) D 12/28/17 06:20 RBC 4.06 M/mm3 (4.00-5.60) 12/28/17 06:20 Hgb 11.7 GM/dL (11.7-16.9) 12/28/17 06:20 Hct 35.6 % (35.4-49) 12/28/17 06:20 MCV 87.6 fl (80-96) 12/28/17 06:20 MCHC 32.8 g/dl (32.0-35.9) 12/28/17 06:20 RDW 15.7 % (11.9-15.9) 12/28/17 06:20 Plt Count 196 K/MM3 (134-434) 12/28/17 06:20 MPV 9.2 fl (7.5-11.1) 12/28/17 06:20 CMP Sodium 137 mmol/L (136-145) 12/28/17 06:20 Potassium 4.7 mmol/L (3.5-5.1) 12/28/17 06:20 Chloride 94 mmol/L (98-107) L 12/28/17 06:20 Carbon Dioxide 31 mmol/L (21-32) D 12/28/17 06:20 Anion Gap 12 (8-16) 12/28/17 06:20 BUN 40 mg/dL (7-18) H D 12/28/17 06:20 Creatinine 8.4 mg/dL (0.7-1.3) H* 12/28/17 06:20 Creat Clearance w eGFR 6.54 (>60) 12/28/17 06:20 Calcium 8.0 mg/dL (8.5-10.1) L 12/28/17 06:20 Total Bilirubin 0.5 mg/dL (0.2-1.0) D 12/28/17 06:20 AST 9 U/L (15-37) L D 12/28/17 06:20 ALT 7 U/L (12-78) L 12/28/17 06:20 Alkaline Phosphatase 103 U/L (45-117) 12/28/17 06:20 Total Protein 7.3 g/dl (6.4-8.2) 12/28/17 06:20 Albumin 2.7 g/dl (3.4-5.0) L 12/28/17 06:20 Plan: 62 y/o morbidly obese male with PMH significant for HTN, IDDM, CKD (dialysis M/W /F) who was sent down from wound center for admission for right toe infection. The patient states the fourth toe of his right foot has been infected for 1 week and wasn't mproving, despite wound care. The patient was seen in the wound center and sent to the ER for admission for IV antibiotics and to r/o osteomyelitis. I was consulted for history of "seizures". Denies changes in consciousness and does not lose awareness. No tongue biting or incontinence. Therefore, not likely seizures. Seems more consistent with anxiety/benign tremor Patient confirmed he was on Klonipin for this in the past I would not add AEDs at this time If needed, could give a muscle relaxant (baclofen or cyclobenzaprine) of klonipin Continue mgmt of Cellulitis Monitor DM, hypo and hyperglycemia can present with tremoulousness Continue BP control, maintain normotensive range
--- NOTE | 2017-12-28 11:21 | PN ---
Progress Note (short form) - Note Progress Note: Renal follow up for ESRD on HD Pt seen and examined at the bedside no acute complaints denies any fever, chills, sob, abd pain, N/V/D s/p dialysis yesterday Vital Signs Temperature 97.8 F 12/28/17 09:00 Pulse Rate 77 12/28/17 09:00 Respiratory Rate 20 12/28/17 09:00 Blood Pressure 131/68 12/28/17 09:00 O2 Sat by Pulse Oximetry (%) 99 12/28/17 09:20 Intake & Output 12/25/17 12/26/17 12/27/17 12/28/17 23:59 23:59 23:59 23:59 Intake Total 091 708 4967 100 Balance 284 757 2089 100 NAD awake and alert RRR CTA soft NT/ND trace to 1+ edema right foot in dressing CBC, BMP 12/28/17 06:20 12/28/17 06:20 Current Medications Aspirin (Asa -) 81 mg PO DAILY [facility] Last Admin: 12/28/17 09:12 Dose: 81 mg Atorvastatin Calcium (Lipitor -) 40 mg PO HS [facility] Last Admin: 12/27/17 22:43 Dose: 40 mg Cinacalcet (Sensipar -) 60 mg PO DAILY [facility] Last Admin: 12/28/17 09:12 Dose: 60 mg Clonidine (Catapres -) 0.1 mg PO BID [facility] Last Admin: 12/28/17 09:11 Dose: 0.1 mg Collagenase (Santyl -) 1 applic TP DAILY [facility] Last Admin: 12/27/17 09:57 Dose: Not Given Heparin Sodium (Porcine) (Heparin -) 5,000 unit SQ TID [facility] Last Admin: 12/28/17 06:23 Dose: 5,000 unit Piperacillin Sod/Tazobactam (Sod 2.25 gm/ Dextrose) 50 mls @ 100 mls/hr IVPB Q8H-IV [facility] Last Admin: 12/28/17 09:11 Dose: 100 mls/hr Insulin Aspart (Novolog Vial Sliding Scale -) 1 vial SQ ACHS [facility] PRN Reason: Protocol Last Admin: 12/28/17 06:25 Dose: Not Given Insulin Aspart (Novolog Mix 70/30 Vial) 40 units SQ BIDAC [facility] Last Admin: 12/28/17 06:27 Dose: Not Given Metoclopramide HCl (Reglan -) 5 mg PO TIDAC [facility] Last Admin: 12/28/17 06:23 Dose: 5 mg Pantoprazole Sodium (Protonix -) 40 mg PO DAILY [facility] Last Admin: 12/28/17 09:12 Dose: 40 mg Sevelamer Carbonate (Renvela -) 2,400 mg PO TIDCM [facility] Last Admin: 12/28/17 09:11 Dose: 2,400 mg A/P 62 year old gentleman with PMhx of ESRD on HD (MWF x 8 years), Hypertension, IDDM who was referred from wound car to the ED for further management of his Right LE wound on his foot. #Suspected soft tissue infection vs osteomylitis of right LE s/p CTA yesterday that showed good profusion to leg/foot will need podiatary to debride the wound case discussed with Dr. holbrook #ESRD on HD s/p dialysis yesterday, no acute indication for [employer] today next dialysis planned for tomorrow #Renal Osteodystrophy continue Niurka and Sensipar Meet Pedro DO
[2017-12-28] MEDS: COLLAGENASE CLOSTRIDIUM HIST. 30 GRAMS TUBE TP SCH (11:35)
--- NOTE | 2017-12-28 12:26 | CONSULT ---
Consult - text type - Consultation Consultation Note: Patient seen in bed. No complaints. vss, tmax 97.8 vsgi, mri inconclusive for om right foot, left foot wound is resolved,+wound 4th toe with necrotic tissue, +improved cellulitis 4th toe right om? right resolved wound left Patient is cleared from vascular standpoint. Negative CTA. HBO consult. santyl dressing changes. Wound care at home. IVABX as per ID patient will get in Dialysis. Needs custom molded shoes due to charcot deforimty. Will follow. Post op shoe b/l. Read and appreciated Dr. Keller's note.
--- NOTE | 2017-12-28 19:46 | PN ---
Progress Note, Physician History of Present Illness: No new changes - Current Medication List Current Medications: Active Medications Aspirin (Asa -) 81 mg PO DAILY [facility] Last Admin: 12/28/17 09:12 Dose: 81 mg Atorvastatin Calcium (Lipitor -) 40 mg PO HS [facility] Last Admin: 12/27/17 22:43 Dose: 40 mg Cinacalcet (Sensipar -) 60 mg PO DAILY [facility] Last Admin: 12/28/17 09:12 Dose: 60 mg Clonidine (Catapres -) 0.1 mg PO BID [facility] Last Admin: 12/28/17 09:11 Dose: 0.1 mg Collagenase (Santyl -) 1 applic TP DAILY [facility] Last Admin: 12/28/17 11:35 Dose: 1 applic Heparin Sodium (Porcine) (Heparin -) 5,000 unit SQ TID [facility] Last Admin: 12/28/17 13:41 Dose: 5,000 unit Piperacillin Sod/Tazobactam (Sod 2.25 gm/ Dextrose) 50 mls @ 100 mls/hr IVPB Q8H-IV [facility] Last Admin: 12/28/17 18:31 Dose: 100 mls/hr Vancomycin HCl 1,000 mg/ (Dextrose) 250 mls @ 250 mls/hr IVPB ONCE ONE PRN Reason: Protocol Stop: 12/29/17 09:59 Insulin Aspart (Novolog Vial Sliding Scale -) 1 vial SQ ACHS [facility] PRN Reason: Protocol Last Admin: 12/28/17 18:45 Dose: Not Given Insulin Aspart (Novolog Mix 70/30 Vial) 40 units SQ BIDAC [facility] Last Admin: 12/28/17 18:47 Dose: 40 units Metoclopramide HCl (Reglan -) 5 mg PO TIDAC [facility] Last Admin: 12/28/17 18:43 Dose: 5 mg Pantoprazole Sodium (Protonix -) 40 mg PO DAILY [facility] Last Admin: 12/28/17 09:12 Dose: 40 mg Sevelamer Carbonate (Renvela -) 2,400 mg PO TIDCM [facility] Last Admin: 12/28/17 18:00 Dose: 2,400 mg - Objective Vital Signs: Vital Signs Temperature 98.1 F 12/28/17 14:41 Pulse Rate 80 12/28/17 14:41 Respiratory Rate 22 12/28/17 14:41 Blood Pressure 157/80 02/20/18 14:41 O2 Sat by Pulse Oximetry (%) 99 12/28/17 09:20 Constitutional: Yes: Well Nourished Neck: Yes: WNL, Supple Cardiovascular: Yes: WNL, Regular Rate and Rhythm Respiratory: Yes: WNL, Regular, CTA Bilaterally Gastrointestinal: Yes: WNL, Normal Bowel Sounds, Soft, Abdomen, Obese Extremities: Yes: Other (RT foot in dressing) Labs: CBC, BMP 12/28/17 06:20 12/28/17 06:20 Problem List - Problems (1) Foot ulcer due to secondary DM Assessment/Plan: ?osteo CTA noted Vascc/podiatry consults noted As per vascular no further intervention IV antibxs as per ID Code(s): E13.621 - OTHER SPECIFIED DIABETES MELLITUS WITH FOOT ULCER; L97.509 - NON-PRESSURE CHRONIC ULCER OTH PRT UNSP FOOT W UNSP SEVERITY (2) Diabetes Assessment/Plan: Cont sliding scale w/ coverage and NPH Code(s): E11.9 - TYPE 2 DIABETES MELLITUS WITHOUT COMPLICATIONS (3) ESRD (end stage renal disease) Assessment/Plan: Dialysis as per renal Code(s): N18.6 - END STAGE RENAL DISEASE (4) HLD (hyperlipidemia) Assessment/Plan: Cont lipitor Code(s): E78.5 - HYPERLIPIDEMIA, UNSPECIFIED (5) HTN (hypertension) Assessment/Plan: BP stable Cont clonidine Code(s): I10 - ESSENTIAL (PRIMARY) HYPERTENSION (6) Tremor Code(s): R25.1 - TREMOR, UNSPECIFIED
[2017-12-28] MEDS: ATORVASTATIN CA 40 MG TABLET (FP) PO SCH (22:04)
[2017-12-29] MEDS: PIPERACILLIN/TAZOB 2.25 GM 2.25 GM in DEXTROSE 5%-WATER - 50 ML IVPB SCH ×3 (01:49→17:41)
[2017-12-29] MEDS: HEPARIN NA (PORCINE) 5,000 UNITS/ML 1ML VIAL SQ SCH ×3 (06:21→21:49)
[2017-12-29] MEDS: INSULIN (NOVOLOG MIX 70/30) 100 UNITS/ML MDV SQ SCH ×2 (06:21→17:38)
[2017-12-29] MEDS: METOCLOPRAMIDE HCL 10 MG TABLET (FP) PO SCH ×3 (06:22→17:41)
[2017-12-29] MEDS: INSULIN SLIDING SCALE (NOVOLOG) 1 VIAL SQ SCH ×4 (06:22→21:50)
[2017-12-29 08:29] LABS: HEMATOCRIT 35.8 % (35.4-49); HEMOGLOBIN 11.6 GM/dL (11.7-16.9); MCH 28.6 pg (25.7-33.7); MCHC 32.5 g/dl (32.0-35.9); MEAN CELL VOLUME 88.1 fl (80-96); MEAN PLT VOLUME 9.2 fl (7.5-11.1); PLATELET COUNT 189 K/MM3 (134-434); RBC 4.07 M/mm3 (4.00-5.60); RDW 15.4 % (11.9-15.9)
[2017-12-29] MEDS: SEVELAMER CARBONATE 800 MG TAB (FP) PO SCH ×3 (09:00→17:41)
[2017-12-29 09:01] LABS: CHLORIDE 94 mmol/L (98-107); POTASSIUM 5.3 mmol/L (3.5-5.1); SODIUM 136 mmol/L (136-145)
[2017-12-29 09:13] LABS: ANION GAP 14 (8-16); BLOOD UREA NITROGEN 59 mg/dL (7-18); CALCIUM 7.8 mg/dL (8.5-10.1); CO2 28 mmol/L (21-32); GLUCOSE,RANDOM 84 mg/dL (74-106); PHOSPHOROUS 6.3 mg/dL (2.5-4.9)
[2017-12-29 09:48] LABS: CREATININE 10.5 mg/dL (0.7-1.3)
--- NOTE | 2017-12-29 09:57 | PN ---
Progress Note (short form) - Note Progress Note: Neurology History of Present Illness: Pt is a 62 y/o morbidly obese male with PMH significant for HTN, IDDM, CKD ( dialysis M/W/F) who was sent down from wound center for admission for right toe infection. The patient states the fourth toe of his right foot has been infected for 1 week and wasn't improving, despite wound care. The patient was seen in the wound center and sent to the ER for admission for IV antibiotics and to r/o osteomyelitis. I was consulted for history of "seizures". He reports for many years he has tremouloussness that occurs. When he is calm, no symptoms , but can have feeling of shaking when not calm and spontaneously. Denies changes in consciousness and does not lose awareness. No tongue biting or incontinence. Therefore, not likely seizures. Seems more consistent with anxiety /benign tremor. He was able to tell me the medication he was on in the past which is Clonazepam, which makes it more likely to be anxiety related. Would not start it now as he remains stable and did not visualize any tremors this AM again. Was resting comfortably. Active Medications Aspirin (Asa -) 81 mg PO DAILY [facility] Last Admin: 12/28/17 09:12 Dose: 81 mg Atorvastatin Calcium (Lipitor -) 40 mg PO HS [facility] Last Admin: 12/28/17 22:04 Dose: 40 mg Cinacalcet (Sensipar -) 60 mg PO DAILY [facility] Last Admin: 12/28/17 09:12 Dose: 60 mg Clonidine (Catapres -) 0.1 mg PO BID [facility] Last Admin: 12/28/17 22:05 Dose: 0.1 mg Collagenase (Santyl -) 1 applic TP DAILY [facility] Last Admin: 12/28/17 11:35 Dose: 1 applic Heparin Sodium (Porcine) (Heparin -) 5,000 unit SQ TID [facility] Last Admin: 12/29/17 06:21 Dose: 5,000 unit Piperacillin Sod/Tazobactam (Sod 2.25 gm/ Dextrose) 50 mls @ 100 mls/hr IVPB Q8H-IV [facility] Last Admin: 12/29/17 01:49 Dose: 100 mls/hr Vancomycin HCl 1,000 mg/ (Dextrose) 250 mls @ 250 mls/hr IVPB ONCE ONE PRN Reason: Protocol Stop: 12/29/17 09:59 Insulin Aspart (Novolog Vial Sliding Scale -) 1 vial SQ ACHS [facility] PRN Reason: Protocol Last Admin: 12/29/17 06:22 Dose: 2 units Insulin Aspart (Novolog Mix 70/30 Vial) 40 units SQ BIDAC [facility] Last Admin: 12/29/17 06:21 Dose: 40 units Metoclopramide HCl (Reglan -) 5 mg PO TIDAC [facility] Last Admin: 12/29/17 06:22 Dose: 5 mg Pantoprazole Sodium (Protonix -) 40 mg PO DAILY [facility] Last Admin: 12/28/17 09:12 Dose: 40 mg Sevelamer Carbonate (Renvela -) 2,400 mg PO TIDCM [facility] Last Admin: 12/28/17 18:00 Dose: 2,400 mg Physical Examination Vital Signs Period Temp Pulse Resp BP Sys/Martinez Pulse Ox Last 24 Hr 98.1 F-98.5 F 71-80 18-22 139-160/73-80 99 Constitutional: Yes: Well Nourished HENT: Yes: WNL Neck: Yes: WNL, Supple Cardiovascular: Yes: WNL, Regular Rate and Rhythm Respiratory: Yes: WNL, Regular, CTA Bilaterally Gastrointestinal: Yes: WNL, Normal Bowel Sounds, Soft, Abdomen, Obese Extremities: Yes: Other (LUE AVF Rt 4th toe w/ eschar) Neurological: Yes: WNL, Alert, Oriented, CN intact, sensory normal, strength symetric, gait deferred CBCD WBC 8.0 K/mm3 (4.0-10.0) 12/29/17 08:10 RBC 4.07 M/mm3 (4.00-5.60) 12/29/17 08:10 Hgb 11.6 GM/dL (11.7-16.9) L 12/29/17 08:10 Hct 35.8 % (35.4-49) 12/29/17 08:10 MCV 88.1 fl (80-96) 12/29/17 08:10 MCHC 32.5 g/dl (32.0-35.9) 12/29/17 08:10 RDW 15.4 % (11.9-15.9) 12/29/17 08:10 Plt Count 189 K/MM3 (134-434) 12/29/17 08:10 MPV 9.2 fl (7.5-11.1) 12/29/17 08:10 CMP Sodium 136 mmol/L (136-145) 12/29/17 08:10 Potassium 5.3 mmol/L (3.5-5.1) H 12/29/17 08:10 Chloride 94 mmol/L (98-107) L 12/29/17 08:10 Carbon Dioxide 28 mmol/L (21-32) 12/29/17 08:10 Anion Gap 14 (8-16) 12/29/17 08:10 BUN 59 mg/dL (7-18) H D 12/29/17 08:10 Creatinine 10.5 mg/dL (0.7-1.3) H* D 12/29/17 08:10 Creat Clearance w eGFR 6.54 (>60) 12/28/17 06:20 Calcium 7.8 mg/dL (8.5-10.1) L 12/29/17 08:10 Total Bilirubin 0.5 mg/dL (0.2-1.0) D 12/28/17 06:20 AST 9 U/L (15-37) L D 12/28/17 06:20 ALT 7 U/L (12-78) L 12/28/17 06:20 Alkaline Phosphatase 103 U/L (45-117) 12/28/17 06:20 Total Protein 7.3 g/dl (6.4-8.2) 12/28/17 06:20 Albumin 2.7 g/dl (3.4-5.0) L 12/28/17 06:20 Plan: 62 y/o morbidly obese male with PMH significant for HTN, IDDM, CKD (dialysis M/W /F) who was sent down from wound center for admission for right toe infection. The patient states the fourth toe of his right foot has been infected for 1 week and wasn't mproving, despite wound care. The patient was seen in the wound center and sent to the ER for admission for IV antibiotics and to r/o osteomyelitis. I was consulted for history of "seizures". Denies changes in consciousness and does not lose awareness. No tongue biting or incontinence. Therefore, not likely seizures. Seems more consistent with anxiety/benign tremor Patient confirmed he was on Klonipin for this in the past I would not add AEDs at this time If needed, could give a muscle relaxant (baclofen or cyclobenzaprine) of klonipin Continue mgmt of Cellulitis Monitor DM, hypo and hyperglycemia can present with tremoulousness Continue BP control, maintain normotensive range
[2017-12-29] MEDS: CINACALCET HCL 30 MG TAB (FP) PO SCH (11:14)
[2017-12-29] MEDS: PANTOPRAZOLE 40 MG TABLET (FP) PO SCH (11:15)
[2017-12-29] MEDS: ASPIRIN 81 MG CHEWABLE TABLETS PO SCH (11:15)
[2017-12-29] MEDS: cloNIDine HCL 0.1 MG TABLET PO SCH ×2 (11:15→21:49)
[2017-12-29] MEDS: COLLAGENASE CLOSTRIDIUM HIST. 30 GRAMS TUBE TP SCH ×2 (11:16→19:56)
[2017-12-29] MEDS ORDERED: VANCOMYCIN 500 MG in DEXTROSE 5%-WATER - 100 ML IVPB ONE (13:30)
--- NOTE | 2017-12-29 14:25 | PN ---
Progress Note, Physician History of Present Illness: stable no issues - Current Medication List Current Medications: Active Medications Aspirin (Asa -) 81 mg PO DAILY [facility] Last Admin: 12/29/17 11:15 Dose: 81 mg Atorvastatin Calcium (Lipitor -) 40 mg PO HS [facility] Last Admin: 12/28/17 22:04 Dose: 40 mg Cinacalcet (Sensipar -) 60 mg PO DAILY [facility] Last Admin: 12/29/17 11:14 Dose: 60 mg Clonidine (Catapres -) 0.1 mg PO BID [facility] Last Admin: 12/29/17 11:15 Dose: 0.1 mg Collagenase (Santyl -) 1 applic TP DAILY [facility] Last Admin: 12/29/17 11:16 Dose: 1 applic Heparin Sodium (Porcine) (Heparin -) 5,000 unit SQ TID [facility] Last Admin: 12/29/17 06:21 Dose: 5,000 unit Piperacillin Sod/Tazobactam (Sod 2.25 gm/ Dextrose) 50 mls @ 100 mls/hr IVPB Q8H-IV [facility] Last Admin: 12/29/17 11:16 Dose: 100 mls/hr Vancomycin HCl 500 mg/ (Dextrose) 100 mls @ 100 mls/hr IVPB ONCE ONE PRN Reason: Protocol Stop: 12/29/17 14:29 Insulin Aspart (Novolog Vial Sliding Scale -) 1 vial SQ ACHS [facility] PRN Reason: Protocol Last Admin: 12/29/17 11:23 Dose: Not Given Insulin Aspart (Novolog Mix 70/30 Vial) 40 units SQ BIDAC [facility] Last Admin: 12/29/17 06:21 Dose: 40 units Metoclopramide HCl (Reglan -) 5 mg PO TIDAC [facility] Last Admin: 12/29/17 11:16 Dose: 5 mg Pantoprazole Sodium (Protonix -) 40 mg PO DAILY [facility] Last Admin: 12/29/17 11:15 Dose: 40 mg Sevelamer Carbonate (Renvela -) 2,400 mg PO TIDCM [facility] Last Admin: 12/29/17 11:14 Dose: 2,400 mg - Objective Vital Signs: Vital Signs Temperature 98.2 F 12/29/17 12:45 Pulse Rate 67 12/29/17 13:50 Respiratory Rate 18 12/29/17 13:50 Blood Pressure 141/78 12/29/17 13:50 O2 Sat by Pulse Oximetry (%) 99 12/28/17 21:00 Constitutional: Yes: No Distress, Calm Cardiovascular: Yes: Regular Rate and Rhythm Respiratory: Yes: Regular, CTA Bilaterally Gastrointestinal: Yes: Normal Bowel Sounds, Soft Musculoskeletal: Yes: WNL Extremities: Yes: Other Wound/Incision: Yes: Dressing Dry and Intact Neurological: Yes: Alert, Oriented Psychiatric: Yes: Alert, Oriented Labs: CBC, BMP 12/29/17 08:10 12/29/17 08:10 Assessment/Plan looking at the wound and the patients history i suspect patient could very well have osteo r/o osteo no healing wound of the rt leg obesity wound infection esrd looked at the mri result i am leaning towards treating this patient as osteo because of his history plan continue ceftriaxone will need for 4 weeks dialysis rest as per primary team
--- NOTE | 2017-12-29 14:27 | PN ---
Progress Note, Physician History of Present Illness: doing well no issues getting dialysis - Current Medication List Current Medications: Active Medications Aspirin (Asa -) 81 mg PO DAILY [facility] Last Admin: 12/29/17 11:15 Dose: 81 mg Atorvastatin Calcium (Lipitor -) 40 mg PO HS [facility] Last Admin: 12/28/17 22:04 Dose: 40 mg Cinacalcet (Sensipar -) 60 mg PO DAILY [facility] Last Admin: 12/29/17 11:14 Dose: 60 mg Clonidine (Catapres -) 0.1 mg PO BID [facility] Last Admin: 12/29/17 11:15 Dose: 0.1 mg Collagenase (Santyl -) 1 applic TP DAILY [facility] Last Admin: 12/29/17 11:16 Dose: 1 applic Heparin Sodium (Porcine) (Heparin -) 5,000 unit SQ TID [facility] Last Admin: 12/29/17 06:21 Dose: 5,000 unit Piperacillin Sod/Tazobactam (Sod 2.25 gm/ Dextrose) 50 mls @ 100 mls/hr IVPB Q8H-IV [facility] Last Admin: 12/29/17 11:16 Dose: 100 mls/hr Vancomycin HCl 500 mg/ (Dextrose) 100 mls @ 100 mls/hr IVPB ONCE ONE PRN Reason: Protocol Stop: 12/29/17 14:29 Insulin Aspart (Novolog Vial Sliding Scale -) 1 vial SQ ACHS [facility] PRN Reason: Protocol Last Admin: 12/29/17 11:23 Dose: Not Given Insulin Aspart (Novolog Mix 70/30 Vial) 40 units SQ BIDAC [facility] Last Admin: 12/29/17 06:21 Dose: 40 units Metoclopramide HCl (Reglan -) 5 mg PO TIDAC [facility] Last Admin: 12/29/17 11:16 Dose: 5 mg Pantoprazole Sodium (Protonix -) 40 mg PO DAILY [facility] Last Admin: 12/29/17 11:15 Dose: 40 mg Sevelamer Carbonate (Renvela -) 2,400 mg PO TIDCM [facility] Last Admin: 12/29/17 11:14 Dose: 2,400 mg - Objective Vital Signs: Vital Signs Temperature 98.2 F 12/29/17 12:45 Pulse Rate 67 12/29/17 13:50 Respiratory Rate 18 12/29/17 13:50 Blood Pressure 141/78 12/29/17 13:50 O2 Sat by Pulse Oximetry (%) 99 12/28/17 21:00 Constitutional: Yes: No Distress, Calm Cardiovascular: Yes: Regular Rate and Rhythm Respiratory: Yes: Regular, CTA Bilaterally Gastrointestinal: Yes: Normal Bowel Sounds, Soft Genitourinary: Yes: WNL Musculoskeletal: Yes: WNL Extremities: Yes: Other Wound/Incision: Yes: Dressing Dry and Intact Neurological: Yes: Alert, Oriented Labs: CBC, BMP 12/29/17 08:10 12/29/17 08:10 Assessment/Plan looking at the wound and the patients history i suspect patient could very well have osteo r/o osteo no healing wound of the rt leg obesity wound infection esrd discussed the case with nephrology plan i think we can use anceff with dialysis nephrology to manage the dosing during dialysis in that way patient does not need picc line podiatry going to manage conservatively
--- NOTE | 2017-12-29 15:17 | PN ---
Progress Note (short form) - Note Progress Note: Renal follow up for ESRD on HD Pt seen and examined during dialysis BP stable access with good flow no sob, chest pain, abd pain Vital Signs Temperature 98.2 F 12/29/17 12:45 Pulse Rate 67 12/29/17 13:50 Respiratory Rate 18 12/29/17 13:50 Blood Pressure 141/78 12/29/17 13:50 O2 Sat by Pulse Oximetry (%) 99 12/28/17 21:00 Intake & Output 12/26/17 12/27/17 12/28/17 12/29/17 23:59 23:59 23:59 23:59 Intake Total 550 1260 600 150 Balance 550 1260 600 150 NAD awake and alert RRR CTA soft NT/ND trace to 1+ edema right foot in dressing CBC, BMP 12/29/17 08:10 12/29/17 08:10 Current Medications Aspirin (Asa -) 81 mg PO DAILY [facility] Last Admin: 12/29/17 11:15 Dose: 81 mg Atorvastatin Calcium (Lipitor -) 40 mg PO HS [facility] Last Admin: 12/28/17 22:04 Dose: 40 mg Cinacalcet (Sensipar -) 60 mg PO DAILY [facility] Last Admin: 12/29/17 11:14 Dose: 60 mg Clonidine (Catapres -) 0.1 mg PO BID [facility] Last Admin: 12/29/17 11:15 Dose: 0.1 mg Collagenase (Santyl -) 1 applic TP DAILY [facility] Last Admin: 12/29/17 11:16 Dose: 1 applic Heparin Sodium (Porcine) (Heparin -) 5,000 unit SQ TID [facility] Last Admin: 12/29/17 14:54 Dose: Not Given Piperacillin Sod/Tazobactam (Sod 2.25 gm/ Dextrose) 50 mls @ 100 mls/hr IVPB Q8H-IV [facility] Last Admin: 12/29/17 11:16 Dose: 100 mls/hr Insulin Aspart (Novolog Vial Sliding Scale -) 1 vial SQ ACHS [facility] PRN Reason: Protocol Last Admin: 12/29/17 11:23 Dose: Not Given Insulin Aspart (Novolog Mix 70/30 Vial) 40 units SQ BIDAC [facility] Last Admin: 12/29/17 06:21 Dose: 40 units Metoclopramide HCl (Reglan -) 5 mg PO TIDAC [facility] Last Admin: 12/29/17 11:16 Dose: 5 mg Pantoprazole Sodium (Protonix -) 40 mg PO DAILY [facility] Last Admin: 12/29/17 11:15 Dose: 40 mg Sevelamer Carbonate (Renvela -) 2,400 mg PO TIDCM [facility] Last Admin: 12/29/17 11:14 Dose: 2,400 mg A/P 62 year old gentleman with PMhx of ESRD on HD (MWF x 8 years), Hypertension, IDDM who was referred from wound car to the ED for further management of his Right LE wound on his foot. #Suspected soft tissue infection/osteomylitis of right LE s/p CTA yesterday that showed good profusion to leg/foot no surgical intervention at this time will need fortaz 2g with HD x 4 weeks discussed with ID #[email or web address] on HD tolerating dialysis well #Renal Osteodystrophy continue Renvela and Ryan Pedro DO
[2017-12-29] MEDS ORDERED: CEFTAZIDIME PENTAHYDRATE 2 GM in DEXTROSE 5%-WATER - 100 ML IVPB ONE (15:30)
[2017-12-29] MEDS ORDERED: PT OWN MED DRAWER 7, Y5N ONE (17:36)
--- NOTE | 2017-12-29 21:14 | PN ---
Progress Note, Physician History of Present Illness: No new changes - Current Medication List Current Medications: Active Medications Aspirin (Asa -) 81 mg PO DAILY [facility] Last Admin: 12/29/17 11:15 Dose: 81 mg Atorvastatin Calcium (Lipitor -) 40 mg PO HS [facility] Last Admin: 12/28/17 22:04 Dose: 40 mg Cinacalcet (Sensipar -) 60 mg PO DAILY [facility] Last Admin: 12/29/17 11:14 Dose: 60 mg Clonidine (Catapres -) 0.1 mg PO BID [facility] Last Admin: 12/29/17 11:15 Dose: 0.1 mg Collagenase (Santyl -) 1 applic TP DAILY [facility] Last Admin: 12/29/17 19:56 Dose: Not Given Heparin Sodium (Porcine) (Heparin -) 5,000 unit SQ TID [facility] Last Admin: 12/29/17 14:54 Dose: Not Given Piperacillin Sod/Tazobactam (Sod 2.25 gm/ Dextrose) 50 mls @ 100 mls/hr IVPB Q8H-IV [facility] Last Admin: 12/29/17 17:41 Dose: 100 mls/hr Insulin Aspart (Novolog Vial Sliding Scale -) 1 vial SQ ACHS [facility] PRN Reason: Protocol Last Admin: 12/29/17 17:38 Dose: Not Given Insulin Aspart (Novolog Mix 70/30 Vial) 40 units SQ BIDAC [facility] Last Admin: 12/29/17 17:38 Dose: 20 units Metoclopramide HCl (Reglan -) 5 mg PO TIDAC [facility] Last Admin: 12/29/17 17:41 Dose: 5 mg Pantoprazole Sodium (Protonix -) 40 mg PO DAILY [facility] Last Admin: 12/29/17 11:15 Dose: 40 mg Sevelamer Carbonate (Renvela -) 2,400 mg PO TIDCM [facility] Last Admin: 12/29/17 17:41 Dose: 2,400 mg - Objective Vital Signs: Vital Signs Temperature 97.8 F 12/29/17 18:00 Pulse Rate 79 12/29/17 18:00 Respiratory Rate 18 12/29/17 18:00 Blood Pressure 126/73 12/29/17 18:00 O2 Sat by Pulse Oximetry (%) 99 12/29/17 09:00 Constitutional: Yes: Well Nourished Neck: Yes: WNL, Supple Cardiovascular: Yes: WNL, Regular Rate and Rhythm Respiratory: Yes: WNL, Regular, CTA Bilaterally Gastrointestinal: Yes: WNL, Normal Bowel Sounds, Soft, Abdomen, Obese Extremities: Yes: Other (Rt foot in dressing) Labs: CBC, BMP 12/29/17 08:10 12/29/17 08:10 Problem List - Problems (1) Foot ulcer due to secondary DM Assessment/Plan: ?osteo CTA noted Vascc/podiatry consults noted As per ID and renal pt is to get IV antibx w/ dialysis DC planning for am PT eval Code(s): E13.621 - OTHER SPECIFIED DIABETES MELLITUS WITH FOOT ULCER; L97.509 - NON-PRESSURE CHRONIC ULCER OTH PRT UNSP FOOT W UNSP SEVERITY (2) Diabetes Assessment/Plan: Pt's glucose has been decreasing will decrease NPH dose for now and observe Cont sliding scale w/ coverage Code(s): E11.9 - TYPE 2 DIABETES MELLITUS WITHOUT COMPLICATIONS (3) ESRD (end stage renal disease) Assessment/Plan: Dialysis as per renal Code(s): N18.6 - END STAGE RENAL DISEASE (4) HLD (hyperlipidemia) Assessment/Plan: Cont lipitor Code(s): E78.5 - HYPERLIPIDEMIA, UNSPECIFIED (5) HTN (hypertension) Assessment/Plan: BP stable Cont clonidine Code(s): I10 - ESSENTIAL (PRIMARY) HYPERTENSION (6) Tremor Assessment/Plan: Neuro [id number] noted Unlikely seizure ?Benign essential tremor vs anxiety Cont to monitor Code(s): R25.1 - TREMOR, UNSPECIFIED
[2017-12-29] MEDS: ATORVASTATIN CA 40 MG TABLET (FP) PO SCH (21:49)
[2017-12-30] MEDS: PIPERACILLIN/TAZOB 2.25 GM 2.25 GM in DEXTROSE 5%-WATER - 50 ML IVPB SCH ×3 (02:05→17:39)
[2017-12-30] MEDS: HEPARIN NA (PORCINE) 5,000 UNITS/ML 1ML VIAL SQ SCH ×2 (06:38→14:54)
[2017-12-30] MEDS: INSULIN SLIDING SCALE (NOVOLOG) 1 VIAL SQ SCH ×3 (06:38→16:59)
[2017-12-30] MEDS: INSULIN (NOVOLOG MIX 70/30) 100 UNITS/ML MDV SQ SCH ×2 (06:39→16:47)
[2017-12-30] MEDS: METOCLOPRAMIDE HCL 10 MG TABLET (FP) PO SCH ×3 (06:39→16:55)
--- NOTE | 2017-12-30 09:50 | PN ---
Progress Note (short form) - Note Progress Note: Neurology History of Present Illness: Pt is a 62 y/o morbidly obese male with PMH significant for HTN, IDDM, CKD ( dialysis M/W/F) who was sent down from wound center for admission for right toe infection. The patient states the fourth toe of his right foot has been infected for 1 week and wasn't improving, despite wound care. The patient was seen in the wound center and sent to the ER for admission for IV antibiotics and to r/o osteomyelitis. I was consulted for history of "seizures". He reports for many years he has tremouloussness that occurs. When he is calm, no symptoms , but can have feeling of shaking when not calm and spontaneously. Denies changes in consciousness and does not lose awareness. No tongue biting or incontinence. Therefore, not likely seizures. Seems more consistent with anxiety /benign tremor. He was able to tell me the medication he was on in the past which is Clonazepam, which makes it more likely to be anxiety related. Would not start it now as he remains stable and did not visualize any tremors this AM again. Was resting comfortably. He also admits he's not having any events while admitted. channeler runner relaxation therapy may be helpful and perhaps won't need pharmacologic treatment. Active Medications Aspirin (Asa -) 81 mg PO DAILY [facility] Last Admin: 12/29/17 11:15 Dose: 81 mg Atorvastatin Calcium (Lipitor -) 40 mg PO HS [facility] Last Admin: 12/29/17 21:49 Dose: 40 mg Cinacalcet (Sensipar -) 60 mg PO DAILY [facility] Last Admin: 12/29/17 11:14 Dose: 60 mg Clonidine (Catapres -) 0.1 mg PO BID [facility] Last Admin: 12/29/17 21:49 Dose: 0.1 mg Collagenase (Santyl -) 1 applic TP DAILY [facility] Last Admin: 12/29/17 19:56 Dose: Not Given Heparin Sodium (Porcine) (Heparin -) 5,000 unit SQ TID [facility] Last Admin: 12/30/17 06:38 Dose: Not Given Piperacillin Sod/Tazobactam (Sod 2.25 gm/ Dextrose) 50 mls @ 100 mls/hr IVPB Q8H-IV [facility] Last Admin: 12/30/17 02:05 Dose: 100 mls/hr Insulin Aspart (Novolog Vial Sliding Scale -) 1 vial SQ ACHS [facility] PRN Reason: Protocol Last Admin: 12/30/17 06:38 Dose: Not Given Insulin Aspart (Novolog Mix 70/30 Vial) 20 units SQ BIDAC [facility] Last Admin: 12/30/17 06:39 Dose: 20 units Metoclopramide HCl (Reglan -) 5 mg PO TIDAC [facility] Last Admin: 12/30/17 06:39 Dose: 5 mg Pantoprazole Sodium (Protonix -) 40 mg PO DAILY [facility] Last Admin: 12/29/17 11:15 Dose: 40 mg Sevelamer Carbonate (Renvela -) 2,400 mg PO TIDCM [facility] Last Admin: 12/29/17 17:41 Dose: 2,400 mg Physical Examination Vital Signs Period Temp Pulse Resp BP Sys/Martinez Pulse Ox Last 24 Hr 97.7 F-98.2 F 62-82 18-20 104-160/71-89 99 Constitutional: Yes: Well Nourished HENT: Yes: WNL Neck: Yes: WNL, Supple Cardiovascular: Yes: WNL, Regular Rate and Rhythm Respiratory: Yes: WNL, Regular, CTA Bilaterally Gastrointestinal: Yes: WNL, Normal Bowel Sounds, Soft, Abdomen, Obese Extremities: Yes: Other (LUE AVF Rt 4th toe w/ eschar) Neurological: Yes: WNL, Alert, Oriented, CN intact, sensory normal, strength symetric, gait deferred CBCD WBC 8.0 K/mm3 (4.0-10.0) 12/29/17 08:10 RBC 4.07 M/mm3 (4.00-5.60) 12/29/17 08:10 Hgb 11.6 GM/dL (11.7-16.9) L 12/29/17 08:10 Hct 35.8 % (35.4-49) 12/29/17 08:10 MCV 88.1 fl (80-96) 12/29/17 08:10 MCHC 32.5 g/dl (32.0-35.9) 12/29/17 08:10 RDW 15.4 % (11.9-15.9) 12/29/17 08:10 Plt Count 189 K/MM3 (134-434) 12/29/17 08:10 MPV 9.2 fl (7.5-11.1) 12/29/17 08:10 CMP Sodium 136 mmol/L (136-145) 12/29/17 08:10 Potassium 5.3 mmol/L (3.5-5.1) H 12/29/17 08:10 Chloride 94 mmol/L (98-107) L 12/29/17 08:10 Carbon Dioxide 28 mmol/L (21-32) 12/29/17 08:10 Anion Gap 14 (8-16) 12/29/17 08:10 BUN 59 mg/dL (7-18) H D 12/29/17 08:10 Creatinine 10.5 mg/dL (0.7-1.3) H* D 12/29/17 08:10 Creat Clearance w eGFR 6.54 (>60) 12/28/17 06:20 Calcium 7.8 mg/dL (8.5-10.1) L 12/29/17 08:10 Total Bilirubin 0.5 mg/dL (0.2-1.0) D 12/28/17 06:20 AST 9 U/L (15-37) L D 12/28/17 06:20 ALT 7 U/L (12-78) L 12/28/17 06:20 Alkaline Phosphatase 103 U/L (45-117) 12/28/17 06:20 Total Protein 7.3 g/dl (6.4-8.2) 12/28/17 06:20 Albumin 2.7 g/dl (3.4-5.0) L 12/28/17 06:20 Plan: 62 y/o morbidly obese male with PMH significant for HTN, IDDM, CKD (dialysis M/W /F) who was sent down from wound center for admission for right toe infection. The patient states the fourth toe of his right foot has been infected for 1 week and wasn't mproving, despite wound care. The patient was seen in the wound center and sent to the ER for admission for IV antibiotics and to r/o osteomyelitis. I was consulted for history of "seizures". Denies changes in consciousness and does not lose awareness. No tongue biting or incontinence. Therefore, not likely seizures. Seems more consistent with anxiety/benign tremor Patient confirmed he was on Klonipin for this in the past I would not add AEDs at this time If needed, could give a muscle relaxant (baclofen or cyclobenzaprine) of klonipin Continue mgmt of Cellulitis Monitor DM, hypo and hyperglycemia can present with tremoulousness Continue BP control, maintain normotensive range
[2017-12-30] MEDS ORDERED: PT OWN MED DRAWER 7, Y5N ONE ×2 (10:07→10:23)
[2017-12-30] MEDS: ASPIRIN 81 MG CHEWABLE TABLETS PO SCH (10:14)
[2017-12-30] MEDS: PANTOPRAZOLE 40 MG TABLET (FP) PO SCH (10:14)
[2017-12-30] MEDS: cloNIDine HCL 0.1 MG TABLET PO SCH (10:14)
[2017-12-30] MEDS: COLLAGENASE CLOSTRIDIUM HIST. 30 GRAMS TUBE TP SCH ×2 (10:39→14:49)
[2017-12-30] MEDS: SEVELAMER CARBONATE 800 MG TAB (FP) PO SCH ×3 (10:39→17:47)
[2017-12-30] MEDS: CINACALCET HCL 30 MG TAB (FP) PO SCH (10:40)
--- NOTE | 2017-12-30 12:02 | PN ---
Progress Note (short form) - Note Progress Note: Renal follow up for ESRD on HD Pt seen and examined at the bedside awake and alert no acute complaints Vital Signs Temperature 97.7 F 12/30/17 08:38 Pulse Rate 73 12/30/17 08:38 Respiratory Rate 18 12/30/17 08:38 Blood Pressure 152/81 12/30/17 08:38 O2 Sat by Pulse Oximetry (%) 99 12/29/17 21:00 Intake & Output 12/27/17 12/28/17 12/29/17 12/30/17 23:59 23:59 23:59 23:59 Intake Total 2568 673 2800 610 Balance 0969 670 6648 610 NAD awake and alert RRR CTA soft NT/ND trace to 1+ edema right foot in dressing CBC, BMP 12/29/17 08:10 12/29/17 08:10 Current Medications Aspirin (Asa -) 81 mg PO DAILY [facility] Last Admin: 12/30/17 10:14 Dose: 81 mg Atorvastatin Calcium (Lipitor -) 40 mg PO HS [facility] Last Admin: 12/29/17 21:49 Dose: 40 mg Cinacalcet (Sensipar -) 60 mg PO DAILY [facility] Last Admin: 12/30/17 10:40 Dose: 60 mg Clonidine (Catapres -) 0.1 mg PO BID [facility] Last Admin: 12/30/17 10:14 Dose: 0.1 mg Collagenase (Santyl -) 1 applic TP DAILY [facility] Last Admin: 12/29/17 19:56 Dose: Not Given Heparin Sodium (Porcine) (Heparin -) 5,000 unit SQ TID [facility] Last Admin: 12/30/17 06:38 Dose: Not Given Piperacillin Sod/Tazobactam (Sod 2.25 gm/ Dextrose) 50 mls @ 100 mls/hr IVPB Q8H-IV [facility] Last Admin: 12/30/17 11:16 Dose: Not Given Insulin Aspart (Novolog Vial Sliding Scale -) 1 vial SQ ACHS [facility] PRN Reason: Protocol Last Admin: 12/30/17 06:38 Dose: Not Given Insulin Aspart (Novolog Mix 70/30 Vial) 20 units SQ BIDAC [facility] Last Admin: 12/30/17 06:39 Dose: 20 units Metoclopramide HCl (Reglan -) 5 mg PO TIDAC [facility] Last Admin: 12/30/17 10:14 Dose: 5 mg Pantoprazole Sodium (Protonix -) 40 mg PO DAILY [facility] Last Admin: 12/30/17 10:14 Dose: 40 mg Sevelamer Carbonate (Renvela -) 2,400 mg PO TIDCM [facility] Last Admin: 12/30/17 10:39 Dose: 2,400 mg A/P 62 year old gentleman with PMhx of ESRD on HD (MWF x 8 years), Hypertension, IDDM who was referred from wound car to the ED for further management of his Right LE wound on his foot. #Suspected soft tissue infection/osteomylitis of right LE s/p CTA yesterday that showed good profusion to leg/foot no surgical intervention at this time will continue IV Abx with HD Abx arranged with outpatient dialysis unit #ESRD on HD no indication for dialysis today to resume tomorrow as outpatient #Renal Osteodystrophy continue Renvela and Sensipar discharge planned as per primary Meet Pedro DO
--- NOTE | 2017-12-30 12:04 | PN ---
Progress Note, Physician History of Present Illness: doing well no issues d/w nephrology - Current Medication List Current Medications: Active Medications Aspirin (Asa -) 81 mg PO DAILY [facility] Last Admin: 12/30/17 10:14 Dose: 81 mg Atorvastatin Calcium (Lipitor -) 40 mg PO HS [facility] Last Admin: 12/29/17 21:49 Dose: 40 mg Cinacalcet (Sensipar -) 60 mg PO DAILY [facility] Last Admin: 12/30/17 10:40 Dose: 60 mg Clonidine (Catapres -) 0.1 mg PO BID [facility] Last Admin: 12/30/17 10:14 Dose: 0.1 mg Collagenase (Santyl -) 1 applic TP DAILY [facility] Last Admin: 12/29/17 19:56 Dose: Not Given Heparin Sodium (Porcine) (Heparin -) 5,000 unit SQ TID [facility] Last Admin: 12/30/17 06:38 Dose: Not Given Piperacillin Sod/Tazobactam (Sod 2.25 gm/ Dextrose) 50 mls @ 100 mls/hr IVPB Q8H-IV [facility] Last Admin: 12/30/17 11:16 Dose: Not Given Insulin Aspart (Novolog Vial Sliding Scale -) 1 vial SQ ACHS [facility] PRN Reason: Protocol Last Admin: 12/30/17 06:38 Dose: Not Given Insulin Aspart (Novolog Mix 70/30 Vial) 20 units SQ BIDAC [facility] Last Admin: 12/30/17 06:39 Dose: 20 units Metoclopramide HCl (Reglan -) 5 mg PO TIDAC [facility] Last Admin: 12/30/17 10:14 Dose: 5 mg Pantoprazole Sodium (Protonix -) 40 mg PO DAILY [facility] Last Admin: 12/30/17 10:14 Dose: 40 mg Sevelamer Carbonate (Renvela -) 2,400 mg PO TIDCM [facility] Last Admin: 12/30/17 10:39 Dose: 2,400 mg - Objective Vital Signs: Vital Signs Temperature 97.7 F 12/30/17 08:38 Pulse Rate 73 12/30/17 08:38 Respiratory Rate 18 12/30/17 08:38 Blood Pressure 152/81 12/30/17 08:38 O2 Sat by Pulse Oximetry (%) 99 12/29/17 21:00 Constitutional: Yes: No Distress, Calm, Obese Cardiovascular: Yes: Regular Rate and Rhythm Respiratory: Yes: Regular, CTA Bilaterally Gastrointestinal: Yes: Normal Bowel Sounds, Soft Musculoskeletal: Yes: WNL Extremities: Yes: Other Wound/Incision: Yes: Dressing Dry and Intact Neurological: Yes: Alert, Oriented Psychiatric: Yes: Alert, Oriented Labs: CBC, BMP 12/29/17 08:10 12/29/17 08:10 Assessment/Plan looking at the wound and the patients history i suspect patient could very well have osteo r/o osteo no healing wound of the rt leg obesity wound infection esrd discussed the case with nephrology plan continue current management abx for 4 weeks as discussed wound care rest as primary
--- NOTE | 2017-12-30 13:56 | CONSULT ---
Consult - text type - Consultation Consultation Note: Patient seen in bed. No complaints. vss, tmax 97.7 vsgi, left foot wound is resolved,+wound 4th toe with necrotic tissue, + improved cellulitis 4th toe right, dressing wet today, states he got it wet in shower om? right resolved wound left Patient is cleared from vascular standpoint. Negative CTA. HBO consult done. santyl dressing changes. Wound care at home. IVABX as per ID patient will get in Dialysis. Ordered a [employer] walker for patient outpatient for left foot. . Will follow till DC. Post op shoe b/l till then. Discussed with ID ceftriaxone 4 x week during dialysis.
[2017-12-30 14:37] VITALS: BP 143/76; PULSE 77; TEMP 98.6
--- NOTE | 2017-12-30 22:03 | DS ---
Physical Examination Vital Signs: Vital Signs Temperature 98.6 F 12/30/17 14:35 Pulse Rate 77 12/30/17 14:35 Respiratory Rate 20 12/30/17 14:35 Blood Pressure 143/76 12/30/17 14:35 O2 Sat by Pulse Oximetry (%) 99 12/30/17 09:00 Labs: CBC, BMP 12/29/17 08:10 12/29/17 08:10 Discharge Summary Reason For Visit: CELLULITIS/INFECTION OF TOE Condition: Good - Instructions Diet, Activity, Other Instructions: 2 gram sodium and 2200 calorie diabetic diet See Dr Jauregui in 1 week Referrals: Jameel Jauregui MD [Primary Care Provider] - Disposition: HOME - Home Medications Comprehensive Discharge Medication List: Ambulatory Orders Cinacalcet HCl [Sensipar] 60 mg PO DAILY 09/28/14 Hum Insulin NPH/Reg Insulin Hm [Novolin 70-30 U100 Cartridge] 40 unit SQ BID Aspirin [ASA -] 81 mg PO DAILY #30 tab.chew 10/03/14 Atorvastatin Ca [Lipitor] 40 mg PO HS #30 tablet 10/03/14 cloNIDine HCL [Catapres -] 0.1 mg PO BID #60 tablet 10/03/14 Pantoprazole Sodium [Protonix -] 40 mg PO DAILY 11/20/14 Metoclopramide HCl [Reglan] 5 mg PO TID #0 tablet 04/28/16 Pantoprazole Sodium [Protonix] 40 mg PO DAILY #0 tablet. 04/28/16 Sevelamer Carbonate [Renvela -] 2,400 mg PO TID 04/28/16
== END 2017-12-30 18:29 | disposition home or self-care (01) | DRG 602 ==
LOC: JER 16:34 → JERBED 23:27 → UNDOADMIN 23:47 → J5S 12-22 21:22
PROVIDERS: ADMIT Internal Medicine; ATTEND Internal Medicine
DX: L03.031 Cellulitis of right toe (principal); N18.6 End stage renal disease; E11.52 Type 2 diabetes mellitus with diabetic peripheral angiopathy with gangrene; I12.0 Hypertensive chronic kidney disease with stage 5 chronic kidney disease or end stage renal disease; L97.518 Non-pressure chronic ulcer of other part of right foot with other specified severity; E11.22 Type 2 diabetes mellitus with diabetic chronic kidney disease; E87.5 Hyperkalemia; N25.0 Renal osteodystrophy; E11.40 Type 2 diabetes mellitus with diabetic neuropathy, unspecified; L08.9 Local infection of the skin and subcutaneous tissue, unspecified; E78.5 Hyperlipidemia, unspecified; R25.1 Tremor, unspecified; E11.621 Type 2 diabetes mellitus with foot ulcer; E11.69 Type 2 diabetes mellitus with other specified complication; E66.8 Other obesity; Z68.38 Body mass index [BMI] 38.0-38.9, adult; Z79.4 Long term (current) use of insulin; Z99.2 Dependence on renal dialysis
CPT/HCPCS: 36415; 73630-TC-RT-FY; 73718-TC; 75635-TC; 80048; 80053; 82962; 83036; 84100; 85025; 85027; 85651; 86140; 86704; 86706; 86708; 86803; 87040; 87070; 87077; 87186; 87205; 87340; 99283-25; G0463-25; G0480; J0735; J1644

== ENCOUNTER 2018-01-18 15:56 | Inpatient (IN) | payer OTHER ==
[2018-01-18 21:04] VITALS: BMI 39.3
[2018-02-09 17:36] VITALS: BP 137/78; PULSE 82; TEMP 97.7
== END 2018-02-09 19:15 | disposition home or self-care (01) | DRG 239 ==
LOC: JER 15:56 → JERBED 18:22 → J7W 19:45
PROVIDERS: ADMIT Internal Medicine; ATTEND Internal Medicine
PROC: 0Y6M0ZD Detachment at Right Foot, Partial 4th Ray, Open Approach (ICD-10-PCS; principal; 2018-01-20)
PROC: 0HRMX73 Replacement of Right Foot Skin with Autologous Tissue Substitute, Full Thickness, External Approach (ICD-10-PCS; 2018-01-20)
PROC: 0Y6X0Z0 Detachment at Right 5th Toe, Complete, Open Approach (ICD-10-PCS; 2018-02-01)
PROC: 0QBQ0ZZ Excision of Right Toe Phalanx, Open Approach (ICD-10-PCS; 2018-02-01)
PROC: 0JBQ0ZZ Excision of Right Foot Subcutaneous Tissue and Fascia, Open Approach (ICD-10-PCS; 2018-02-01)
PROC: 0JH63XZ Insertion of Tunneled Vascular Access Device into Chest Subcutaneous Tissue and Fascia, Percutaneous Approach (ICD-10-PCS; 2018-02-07)
PROC: 05HM33Z Insertion of Infusion Device into Right Internal Jugular Vein, Percutaneous Approach (ICD-10-PCS; 2018-02-07)
PROC: B513ZZA Fluoroscopy of Right Jugular Veins, Guidance (ICD-10-PCS; 2018-02-07)
PROC: 5A1D90Z Performance of Urinary Filtration, Continuous, Greater than 18 hours Per Day (ICD-10-PCS; 2018-02-08)
DX: E11.52 Type 2 diabetes mellitus with diabetic peripheral angiopathy with gangrene (principal); N18.6 End stage renal disease; E13.52 Other specified diabetes mellitus with diabetic peripheral angiopathy with gangrene; I96 Gangrene, not elsewhere classified; M86.171 Other acute osteomyelitis, right ankle and foot; M86.671 Other chronic osteomyelitis, right ankle and foot; I12.0 Hypertensive chronic kidney disease with stage 5 chronic kidney disease or end stage renal disease; M84.478A Pathological fracture, left toe(s), initial encounter for fracture; L97.914 Non-pressure chronic ulcer of unspecified part of right lower leg with necrosis of bone; E11.22 Type 2 diabetes mellitus with diabetic chronic kidney disease; Z99.2 Dependence on renal dialysis; Z79.4 Long term (current) use of insulin; N25.0 Renal osteodystrophy; E78.5 Hyperlipidemia, unspecified; E87.5 Hyperkalemia; E13.40 Other specified diabetes mellitus with diabetic neuropathy, unspecified; E11.621 Type 2 diabetes mellitus with foot ulcer; E11.69 Type 2 diabetes mellitus with other specified complication
CPT/HCPCS: 11042; 36415; 36558; 71045-TC-FY; 73630-TC-RT-FY; 73660-TC-FY; 73721-RT-TC; 77001-TC-FY; 80048; 80053; 82550; 82565; 82962; 83735; 84100; 84520; 85025; 85027; 85610; 85651; 86140; 86704; 86706; 86708; 86850; 86900; 86901; 87040; 87070; 87075; 87186; 87205; 87340; 88304-TC; 88305-TC; 88311-TC; 93005; 93010; 94760; 99282-25; C1751; G0277; G0480; J0735; J0878; J1644; J3243; J7030

== ENCOUNTER 2018-02-19 13:18 | Inpatient (IN) | payer OTHER ==
--- NOTE | 2018-02-19 13:38 | PDOC ---
History of Present Illness - General Chief Complaint: Weakness Stated Complaint: FEVER/VOMITING Time Seen by Provider: 02/19/18 13:36 History Source: Patient, Spouse Exam Limitations: No Limitations - History of Present Illness Initial Comments: 62 year old M with PMhx of ESRD on Hd (MWF), HTN, IDDM presenting with chills and fever -Tmax 103.3 at home,after recent discharge (1 week) on ABx for ESBL resistant osteomyelitis and non-healing R foot ulcer with iv tigecycline. Pt woke up with chills and fever, and increased nausea and salivation but no vomiting. Pt reports non productive cough, no palpitations, no SOB, no chest pain, no syncope. Pt has had increased acid reflux with loss of appetite. He started tigecycline wednesday after discharge and has been consistent on 12hrly doses until today. Pt has a reduced sensation in the feet but has been having VNS come to dress the wound. Last dressing was yesterday. No dysuria, no change in bowel habits. Patient has not eaten anything today and has not needed to use either insulin or triseba for a while because of controlled blood sugar in the 160s. 02/19/18 16:18 02/19/18 16:53 Timing/Duration: 4-6 hours Severity: moderate Associated Symptoms: reports: cough (Non productive), fever/chills, loss of appetite, nausea/vomiting (Nausea, no vomiting). denies: chest pain, headaches Past History - Travel Traveled outside of the country in the last 30 days: No Close contact w/someone who was outside of country & ill: No - Past Medical History Allergies/Adverse Reactions: Allergies Allergy/AdvReac Type Severity Reaction Status Date / Time Pork/Porcine Containing Allergy Verified 02/19/18 13:32 Products Home Medications: Ambulatory Orders Cinacalcet HCl [Sensipar] 60 mg PO DAILY 09/28/14 Hum Insulin NPH/Reg Insulin Hm [Novolin 70-30 U100 Cartridge] 40 unit SQ BID Aspirin [ASA -] 81 mg PO DAILY #30 tab.chew 10/03/14 Atorvastatin Ca [Lipitor] 40 mg PO HS #30 tablet 10/03/14 cloNIDine HCL [Catapres -] 0.1 mg PO BID #60 tablet 10/03/14 Metoclopramide HCl [Reglan] 5 mg PO TID #0 tablet 04/28/16 Pantoprazole Sodium [Protonix] 40 mg PO DAILY #0 tablet. 04/28/16 Sevelamer Carbonate [Renvela -] 2,400 mg PO TID 04/28/16 Ammonium Lactate Lotion [Lac-Hydrin 12] 1 applic TP BID PRN bottle 02/08/18 Anemia: Yes Asthma: No Cancer: No Cardiac Disorders: No CVA: No COPD: No CHF: No DVT: No Dementia: No Diabetes: Yes Dialysis: Yes GI Disorders: Yes (DIVERTICULOSIS, COLON POLYPS, GERD) Disorders: No HTN: Yes Hypercholesterolemia: Yes Liver Disease: Yes (ELEVATED LIVER ENZYMES) Seizures: No Thyroid Disease: No - Surgical History Abdominal Surgery: No Appendectomy: No Cardiac Surgery: No Cholecystectomy: No Lung Surgery: No Neurologic Surgery: No Orthopedic Surgery: Yes (ROTATOR CUFF REPAIR L SHOULDER) - Immunization History Immunization Up to Date: Yes - Suicide/Smoking/Psychosocial Hx Smoking History: Unknown if ever smoked Have you smoked in the past 12 months: No Number of Cigarettes Smoked Daily: 0 Cigars Per Day: 0 Information on smoking cessation initiated: No Hx Alcohol Use: No Drug/Substance Use Hx: No Substance Use Type: None Hx Substance Use Treatment: No Review of Systems - Review of Systems Able to Perform ROS?: Yes Is the patient limited Ukrainian proficient: No Constitutional: Yes: Chills, Fever, Loss of Appetite HEENTM: No: Blurred Vision, Nose Congestion, Throat Pain Respiratory: Yes: Cough (non productive). No: Shortness of Breath, SOB with Exertion, SOB at Rest Cardiac (ROS): No: Chest Pain, Edema, Palpitations, Syncope ABD/GI: No: Abd. Pain w/ defecation, Diarrhea : No: Burning, Dysuria, Flank Pain Musculoskeletal: No: Back Pain Integumentary: Yes: Other (poorly healing R 4th and 5th toe amputation stump) Neurological: Yes: Pre-Existing Deficit (reduced sensation lower limbs) *Physical Exam - Vital Signs Last Vital Signs Temp Pulse Resp BP Pulse Ox 100.2 F H 112 H 16 130/65 97 02/19/18 13:29 02/19/18 13:29 02/19/18 13:29 02/19/18 13:29 02/19/18 13:29 - Physical Exam General Appearance: Yes: Obese. No: Apparent Distress HEENT: positive: Pharynx Normal. negative: Nasal Congestion, Sinus Tenderness Neck: positive: Supple Respiratory/Chest: positive: Lungs Clear, Normal Breath Sounds. negative: Stridor, Wheezing Cardiovascular: positive: Regular Rate, S1, S2. negative: JVD Gastrointestinal/Abdominal: positive: Normal Bowel Sounds, Soft Musculoskeletal: negative: CVA Tenderness Extremity: positive: Other Integumentary: positive: Warm Heart Score/ECG Review - Electrocardiogram EKG: Normal - Age Age: 45-65 - Risk Factors Risk Factors Heart Score: Yes Hx Hypertension, Yes Hx Diabetes - Troponin Troponin: 1-3x normal limit - ECG Intrepretation Rhythm: Regular Rhythm (A few PACs) - [place]: Normal - P and AL Prominent R with upright T in V1 (true posterior OK): No Delta Wave(s) Present: No WPW: No - QRS Poor R Wave Progression: No Q Wave Present: No - ST and T Early Repolarization: No Non Specific ST-T Wave changes: Yes Flattened T Waves: No Prolonged Q-T Interval: No - ECG Impressions Normal ECG: No Non-specific ST Elevation: Yes Tachycardia: Sinus (sepsis) Torsades mary Pointes: No WPW: No ED Treatment Course - LABORATORY CBC & Chemistry Diagram: 02/19/18 14:43 02/19/18 14:43 - Consult/PCP Time Called: 16:30 Case discussed with personal care physician: Angélica Wilson (Pt accepted for admission) Case discussed with consulting physician: Momo Hollingsworth (Ordered CT R lower extremity) - Additional Consults Time Called: 16:00 (Patient can be put gentle hydration in sepsis, last dialysis Wednesday) Consult/PCP: Dr Koch Medical Decision Making - Medical Decision Making Sepsis screen-blood culture, CXR, CBC, CMP, Wound culture from draining site, trops, lactic acid, UA, Urine culture 02/19/18 15:[address] Hollingsworth- requests CT R foot, since MRI has higher sensitivity if used less 3 months after surgery and diagnosis of osteomyelitis 02/19/18 16:[address] Koch who knows the patient well. He is okay with rehydrating the patient with lactic acid of 2.3. He suggested up to 75mls/hr. Plan: start iv normal saline at 50mls/hr total 500mls (D/W Dr Gaona) Patient will be admitted under Dr Wilson (spoke with her) and she accepts the admission on behalf of Dr Jameel Jauregui 02/19/18 16:33 Repeat trops for 6.38pm initial sample drawn at around 2.30pm CT scan RLE 02/19/18 17:06 *DC/Admit/Observation/Transfer Diagnosis at time of Disposition: Sepsis, Foot ulcer due to secondary DM, Dialysis patient, HTN (hypertension), Diabetes, ESRD (end stage renal disease) - Discharge Dispostion Condition at time of disposition: Guarded Admit: Yes Decision to Admit order Date/Time: 02/19/18 16:[address] Wilson and to be seen by Dr Koch and Dr Hollingsworth. - Referrals Referrals: Jameel Jauregui MD [Primary Care Provider] - - Patient Instructions - Post Discharge Activity - Attestations Physician Attestion: 02/19/18 17:07 Michelle Sher MD
--- NOTE | 2018-02-19 13:56 | PDOC ---
Attending Attestation - Resident Resident Name: NikkyMichelle I - ED Attending Attestation I have performed the following: I have examined & evaluated the patient, The case was reviewed & discussed with the resident, I agree w/resident's findings & plan, Exceptions are as noted - HPI HPI: 62 yo M history ESRD on HD, HTN, DM presents with fever, chills. Measured temp 103 at home. He was recently discharged from admission for the foot wound. He c/ o nausea. +Dry cough. He has been on tigecycline for the foot infection but has not taken it today due to fever. - Physicial Exam PE: GENERAL: Awake, alert, and fully oriented, in no acute distress HEAD: No signs of trauma EYES: PERRLA, EOMI, sclera anicteric, conjunctiva clear ENT: Auricles normal inspection, hearing grossly normal, nares patent, oropharynx clear without exudates. Moist mucosa NECK: Normal ROM, supple, no lymphadenopathy, JVD, or masses LUNGS: Breath sounds equal, clear to auscultation bilaterally. No wheezes, and no crackles HEART: Regular rate and rhythm, normal S1 and S2, no murmurs, rubs or gallops ABDOMEN: Soft, nontender, normoactive bowel sounds. No guarding, no rebound. No masses EXTREMITIES: Normal range of motion, no edema. No clubbing or cyanosis. No cords, erythema, or tenderness NEUROLOGICAL: Cranial nerves II through XII grossly intact. Normal speech, normal gait SKIN: Warm, Dry, normal turgor, no rashes. R foot s/p 4th and 5th toe amputations, +granulation tissue. +Bullous lesion to R lateral mid-foot, leaking malodorous serosanguinous drainage. - Medical Decision Making Pt with fever s/p recent admission, already on abx. Will d/w ID and plan for admission.
[2018-02-19 15:09] LABS: ALK PHOS 123 U/L (45-117); ANION GAP 8 (8-16); BILIRUBIN,TOTAL 0.4 mg/dL (0.2-1.0); BLOOD UREA NITROGEN 58 mg/dL (7-18); CHLORIDE 97 mmol/L (98-107); CO2 30 mmol/L (21-32); CREATININE 7.2 mg/dL (0.7-1.3); GLUCOSE,RANDOM 120 mg/dL (74-106); POTASSIUM 5.2 mmol/L (3.5-5.1); SGOT/AST 11 U/L (15-37); SGPT/ALT 13 U/L (12-78); SODIUM 135 mmol/L (136-145); TOT PROT 6.8 g/dl (6.4-8.2)
[2018-02-19 15:11] LABS: BASO % 0.3 % (0-2.0); EOS % 0.1 % (0-4.5); HEMATOCRIT 28.8 % (35.4-49); HEMOGLOBIN 9.7 GM/dL (11.7-16.9); LYMPH % 4.5 % (8-40); MCH 28.9 pg (25.7-33.7); MCHC 33.5 g/dl (32.0-35.9); MEAN CELL VOLUME 86.2 fl (80-96); MEAN PLT VOLUME 10.2 fl (7.5-11.1); MONO % 8.4 % (3.8-10.2); NEUT % 86.7 % (42.8-82.8); PLATELET COUNT 157 K/MM3 (134-434); RBC 3.34 M/mm3 (4.00-5.60); WHITE BLOOD COUNT 14.5 K/mm3 (4.0-10.0)
[2018-02-19 15:25] LABS: INR 1.29 (0.82-1.09); PROTHROMBIN TIME (PATIENT) 14.6 SEC (9.98-11.88)
[2018-02-19] MEDS ORDERED: SODIUM CHLORIDE 1,000 ML IV SCH (16:15)
[2018-02-19] MEDS ORDERED: SODIUM CHLORIDE 500 ML IV SCH (16:30)
[2018-02-19 22:32] VITALS: BMI 38.9
[2018-02-19] MEDS ORDERED: AMMONIUM LACTATE 12% LOTION 225 GM BOTTLE TP PRN (22:42)
[2018-02-19] MEDS ORDERED: TIGECYCLINE 50 MG in DEXTROSE 5%-WATER - 100 ML IVPB ONE (23:00)
--- NOTE | 2018-02-19 23:10 | CON.NEP ---
Consult Consult Specialty:: Nephrology Reason for Consultation:: esrd for hd - History of Present Illness Chief Complaint: high fever x one while on tygasil History of Present Illness: he was living at home on iv antibiotics he woke up today with chills and a high fever denies any new symptoms- no sore throat or cough or headache PMhx of ESRD on Hd (MWF), HTN, IDDM ESBL resistant osteomyelitis - History Source History Provided By: Patient - Past Medical History Cardio/Vascular: Yes: HTN Endocrine: Yes: Diabetes Mellitus - Alcohol/Substance Use Hx Alcohol Use: No - Smoking History Smoking history: Unknown if ever smoked Have you smoked in the past 12 months: No Aproximately how many cigarettes per day: 0 Home Medications - Allergies Allergies/Adverse Reactions: Allergies Allergy/AdvReac Type Severity Reaction Status Date / Time Pork/Porcine Containing Allergy Verified 02/19/18 13:32 Products - Home Medications Home Medications: Ambulatory Orders Cinacalcet HCl [Sensipar] 60 mg PO DAILY 09/28/14 Hum Insulin NPH/Reg Insulin Hm [Novolin 70-30 U100 Cartridge] 40 unit SQ BID Aspirin [ASA -] 81 mg PO DAILY #30 tab.chew 10/03/14 Atorvastatin Ca [Lipitor] 40 mg PO HS #30 tablet 10/03/14 cloNIDine HCL [Catapres -] 0.1 mg PO BID #60 tablet 10/03/14 Metoclopramide HCl [Reglan] 5 mg PO TID #0 tablet 04/28/16 Pantoprazole Sodium [Protonix] 40 mg PO DAILY #0 tablet.dr 04/28/16 Sevelamer Carbonate [Renvela -] 2,400 mg PO TID 04/28/16 Ammonium Lactate Lotion [Lac-Hydrin 12] 1 applic TP BID PRN bottle 02/08/18 Nephrology Consult - Height Height: 6 ft - Weight Weight: 286 lb 12.8 oz - BMI Body Mass Index (BMI): 38.9 - Lab Results CBC,BMP: CBC, BMP 02/19/18 14:43 02/19/18 14:43 Anion Gap: Anion Gap Anion Gap 8 (8-16) 02/19/18 14:43 - Physical Examination Vital Signs: Vital Signs Temperature 98.6 F 02/19/18 22:00 Pulse Rate 90 02/19/18 22:00 Respiratory Rate 18 02/19/18 22:00 Blood Pressure 147/89 02/19/18 22:00 O2 Sat by Pulse Oximetry (%) 96 02/19/18 21:02
[2018-02-20] MEDS ORDERED: ONDANSETRON 4 MG/2 ML VIAL IVPUSH PRN (01:15)
[2018-02-20] MEDS: ACETAMINOPHEN 325 MG TABLET (FP) PO PRN ×2 (02:28→20:11)
[2018-02-20] MEDS: INSULIN (NOVOLOG MIX 70/30) 100 UNITS/ML MDV SQ SCH ×2 (06:04→18:20)
[2018-02-20] MEDS: INSULIN SLIDING SCALE (NOVOLOG) 1 VIAL SQ SCH ×4 (06:05→22:19)
[2018-02-20 08:41] LABS: BASO % 0.4 % (0-2.0); EOS % 0.3 % (0-4.5); HEMATOCRIT 27.3 % (35.4-49); HEMOGLOBIN 9.1 GM/dL (11.7-16.9); LYMPH % 6.5 % (8-40); MCHC 33.5 g/dl (32.0-35.9); MEAN CELL VOLUME 86.6 fl (80-96); MEAN PLT VOLUME 9.8 fl (7.5-11.1); MONO % 8.4 % (3.8-10.2); NEUT % 84.4 % (42.8-82.8); PLATELET COUNT 144 K/MM3 (134-434); RBC 3.15 M/mm3 (4.00-5.60); RDW 15.5 % (11.9-15.9); WHITE BLOOD COUNT 10.2 K/mm3 (4.0-10.0)
[2018-02-20 08:46] LABS: ALBUMIN 1.8 g/dl (3.4-5.0); ANION GAP 7 (8-16); BILIRUBIN,TOTAL 0.5 mg/dL (0.2-1.0); BLOOD UREA NITROGEN 67 mg/dL (7-18); CALCIUM 7.4 mg/dL (8.5-10.1); CHLORIDE 96 mmol/L (98-107); CO2 31 mmol/L (21-32); GLUCOSE,RANDOM 89 mg/dL (74-106); POTASSIUM 5.3 mmol/L (3.5-5.1); SGOT/AST 12 U/L (15-37); SGPT/ALT 12 U/L (12-78); SODIUM 134 mmol/L (136-145); TOT PROT 6.4 g/dl (6.4-8.2)
[2018-02-20 08:51] LABS: ALK PHOS 109 U/L (45-117)
--- NOTE | 2018-02-20 08:54 | PN ---
Progress Note, Physician Chief Complaint: CARDIOLOGY F/u: for borderline, non-zero TnI level Well known to our service from frequent admissions and office: PMH: 1. HTN 2. ESRD 3. Chronic diastolic CHF 4. Osteomyelitis RLE s/p amputations 3/4th digits 5. DM 6. Chronic anemia Now again admitted for fever, chills. Found to be febrile. I was asked to see him due to a mildly elevated TnI above zero. He denies CP, SOB, PND, orthopnea. His ECG showed NSR/mild sinus tachycardia at 103 bpm, LVH. NSST changes. His O2 saturation has been recorded at 96-97% on room air. A recent nuclear stress done in office showed no ischemia, attenuation artifacts. History of Present Illness: TELEMETRY REVIEWED: NSR. one 4-5 beat run of NSVT. Several, short self limited runs of narrow complex, regular tachycardia at around 160bpm, probably SVT/ Atach. - Current Medication List Current Medications: Active Medications Acetaminophen (Tylenol -) 650 mg PO Q6H PRN PRN Reason: FEVER Last Admin: 02/20/18 02:28 Dose: 650 mg Aspirin (Asa -) 81 mg PO DAILY [facility] Atorvastatin Calcium (Lipitor -) 40 mg PO HS [facility] Cinacalcet (Sensipar -) 60 mg PO DAILY [facility] Clonidine (Catapres -) 0.1 mg PO BID [facility] Heparin Sodium (Porcine) (Heparin -) 5,000 unit SQ BID [facility] Tigecycline 50 mg/ Dextrose 100 mls @ 100 mls/hr IVPB BID [facility] PRN Reason: Protocol Insulin Aspart (Novolog Mix 70/30 Vial) 40 units SQ BIDAC [facility] Last Admin: 02/20/18 06:04 Dose: Not Given Insulin Aspart (Novolog Vial Sliding Scale -) 1 vial SQ ACHS [facility] PRN Reason: Protocol Last Admin: 02/20/18 06:05 Dose: Not Given Lactic Acid (Lac-Hydrin 12) 1 applic TP BID PRN PRN Reason: WOUND CARE Ondansetron HCl (Zofran Injection) 4 mg IVPUSH Q6H PRN PRN Reason: NAUSEA AND/OR VOMITING Pantoprazole Sodium (Protonix -) 40 mg PO DAILY [facility] - Objective Vital Signs: Vital Signs Temperature 98.9 F 02/20/18 06:47 Pulse Rate 93 H 02/20/18 06:47 Respiratory Rate 18 15/18 06:47 Blood Pressure 130/74 02/20/18 06:47 O2 Sat by Pulse Oximetry (%) 96 02/19/18 21:02 Constitutional: Yes: No Distress, Calm Eyes: Yes: Conjunctiva Clear HENT: Yes: Atraumatic, Normocephalic Neck: Yes: Supple, Trachea Midline Cardiovascular: Yes: Regular Rate and Rhythm Respiratory: Yes: CTA Bilaterally Gastrointestinal: Yes: Soft, Abdomen, Obese Edema: No Peripheral Pulses WNL: Yes Neurological: Yes: Alert, Oriented ...Motor Strength: WNL Psychiatric: Yes: WNL Additional Findings/Remarks: Feet wrapped in gauze dressings Labs: INR, PTT INR 1.29 (0.82-1.09) H 02/19/18 14:43 Laboratory Tests 02/19/18 02/19/18 02/19/18 14:43 14:43 14:43 WBC 14.5 H D Hgb 9.7 L D Hct 28.8 L D Plt Count 157 INR PTT (Actin FS) Sodium 135 L Potassium 5.2 H D Creatinine 7.2 H D Lactic Acid 2.3 H* Troponin I 02/19/18 02/19/18 02/19/18 14:43 14:43 14:43 WBC Hgb Hct Plt Count INR 1.29 H PTT (Actin FS) 31.6 Sodium Potassium Creatinine Lactic Acid Troponin I 0.17 H 02/19/18 02/20/18 19:20 08:00 WBC Hgb Hct Plt Count INR PTT (Actin FS) Sodium Potassium Pending Creatinine Lactic Acid Troponin I 0.18 H - ....Imaging Chest X-ray: Image Reviewed EKG: Image Reviewed Problem List - Problems (1) NSVT (nonsustained ventricular tachycardia) Code(s): I47.2 - VENTRICULAR TACHYCARDIA (2) PSVT (paroxysmal supraventricular tachycardia) Code(s): I47.1 - SUPRAVENTRICULAR TACHYCARDIA (3) Elevated troponin I measurement Code(s): R74.8 - ABNORMAL LEVELS OF OTHER SERUM ENZYMES (4) Diabetes Code(s): E11.9 - TYPE 2 DIABETES MELLITUS WITHOUT COMPLICATIONS Qualifiers: Diabetes mellitus care home insulin use: unspecified care home insulin use status Diabetes mellitus complication status: with circulatory complication (5) ESRD (end stage renal disease) Code(s): N18.6 - END STAGE RENAL DISEASE (6) Foot ulcer due to secondary DM Code(s): E13.621 - OTHER SPECIFIED DIABETES MELLITUS WITH FOOT ULCER; L97.509 - NON-PRESSURE CHRONIC ULCER OTH PRT UNSP FOOT W UNSP SEVERITY (7) Sepsis Code(s): A41.9 - SEPSIS, UNSPECIFIED ORGANISM Qualifiers: Sepsis type: sepsis due to unspecified organism Qualified Code(s): A41.9 - Sepsis, unspecified organism (8) Cellulitis Code(s): L03.90 - CELLULITIS, UNSPECIFIED Qualifiers: Site of cellulitis: extremity Site of cellulitis of extremity: toe Laterality: right Qualified Code(s): L03.031 - Cellulitis of right toe Assessment/Plan IMP: SIRS syndrome in setting of likely RLE foot infection, possible osteo DM ESRD on HD NSVT PSVT Chronic HTN Elevated TnI, most probably due to SIRS/early sepsis/ESRD/chronic diastolic CHF- - not due to ACS REC: 1. Cultures, abx as per PMD and ID; await CT LE 2. Start Metoprolol tartrate 25mg PO BID for control of PSVT, NSVT and concomitant HTN 3. Echo to assess LVEF 4. Continue telemetry for additional 24 hours to assess response to beta ema 5. Recent outpatient nuclear stress showed no ischemia. At this point, no plan to repeat ischemic work up unless condition changes or echo shows change in LVEF 6. Continue ASA 81mg daily and check fasting lipids. Thank you.
[2018-02-20 09:28] LABS: CREATININE 8.9 mg/dL (0.7-1.3)
[2018-02-20] MEDS ORDERED: PT OWN MED DRAWER 7, Y5N ONE ×3 (09:42→21:58)
[2018-02-20] MEDS: PANTOPRAZOLE 40 MG TABLET (FP) PO SCH (10:02)
[2018-02-20] MEDS: ASPIRIN 81 MG CHEWABLE TABLETS PO SCH (10:02)
[2018-02-20] MEDS: cloNIDine HCL 0.1 MG TABLET PO SCH ×2 (10:02→22:15)
[2018-02-20] MEDS: METOPROLOL TARTRATE 25 MG TABLET (FP) PO SCH ×2 (10:02→22:15)
[2018-02-20] MEDS: CINACALCET HCL 30 MG TAB (FP) PO SCH (10:04)
[2018-02-20] MEDS: HEPARIN NA (PORCINE) 5,000 UNITS/ML 1ML VIAL SQ SCH ×2 (10:04→22:15)
--- NOTE | 2018-02-20 12:19 | PN ---
Progress Note, Physician History of Present Illness: 62 yr old male with PMH of IDDM, ESRD on MWF, HTN, diverticulosis, diastolic CHF , GERD and Rt foot 4th/5th toe amputations/non healing wound with osteomyelitis. He was discharged on Tygacil 5 days ago but presents with fever of > 103 and c/o nausea. Latest cultures isolated ESBL+ resistant Klebsiella and prior to that VRE. Currently patient with serosanguinous discharge from wound but denies pain. Febrile to 100.8F recently. He denies SOB, chest pain, cough, abd pain/vomiting/diarrhea. - Current Medication List Current Medications: Active Medications Acetaminophen (Tylenol -) 650 mg PO Q6H PRN PRN Reason: FEVER Last Admin: 02/20/18 02:28 Dose: 650 mg Aspirin (Asa -) 81 mg PO DAILY [facility] Last Admin: 02/20/18 10:02 Dose: 81 mg Atorvastatin Calcium (Lipitor -) 40 mg PO HS [facility] Cinacalcet (Sensipar -) 60 mg PO DAILY [facility] Last Admin: 02/20/18 10:04 Dose: 60 mg Clonidine (Catapres -) 0.1 mg PO BID [facility] Last Admin: 02/20/18 10:02 Dose: 0.1 mg Heparin Sodium (Porcine) (Heparin -) 5,000 unit SQ BID [facility] Last Admin: 02/20/18 10:04 Dose: 5,000 unit Tigecycline 50 mg/ Dextrose 100 mls @ 100 mls/hr IVPB BID [facility] PRN Reason: Protocol Insulin Aspart (Novolog Mix 70/30 Vial) 40 units SQ BIDAC [facility] Last Admin: 02/20/18 06:04 Dose: Not Given Insulin Aspart (Novolog Vial Sliding Scale -) 1 vial SQ ACHS [facility] PRN Reason: Protocol Last Admin: 02/20/18 06:05 Dose: Not Given Lactic Acid (Lac-Hydrin 12) 1 applic TP BID PRN PRN Reason: WOUND CARE Last Admin: 02/20/18 10:03 Dose: 1 applic Metoprolol Tartrate (Lopressor -) 25 mg PO BID [facility] Last Admin: 02/20/18 10:02 Dose: 25 mg Ondansetron HCl (Zofran Injection) 4 mg IVPUSH Q6H PRN PRN Reason: NAUSEA AND/OR VOMITING Pantoprazole Sodium (Protonix -) 40 mg PO DAILY [facility] Last Admin: 02/20/18 10:02 Dose: 40 mg - Objective Vital Signs: Vital Signs Temperature 98.6 F 02/20/18 10:01 Pulse Rate 90 02/20/18 10:01 Respiratory Rate 20 02/20/18 10:01 Blood Pressure 115/60 02/20/18 10:01 O2 Sat by Pulse Oximetry (%) 96 02/20/18 09:00 Constitutional: Yes: No Distress, Calm HENT: Yes: Atraumatic Neck: Yes: Supple Cardiovascular: Yes: Regular Rate and Rhythm Respiratory: Yes: CTA Bilaterally Gastrointestinal: Yes: Normal Bowel Sounds, Soft Extremities: Yes: Amputation (Rt 4th/5th toes) Integumentary: Yes: WNL Wound/Incision: Yes: Draining (serosanguinous d/c from Rt foot amp site) Neurological: Yes: Alert, Oriented Psychiatric: Yes: Alert Labs: CBC, BMP 02/20/18 08:00 02/20/18 08:00 INR, PTT INR 1.29 (0.82-1.09) H 02/19/18 14:43 Microbiology 02/19/18 14:43 Blood - Peripheral Venous Blood Culture - Preliminary Pending Organism - ....Imaging Cat Scan: Pending (No OM or abscess noted , consider MRI), Report Reviewed Problem List - Problems (1) Diabetes Code(s): E11.9 - TYPE 2 DIABETES MELLITUS WITHOUT COMPLICATIONS Qualifiers: Diabetes mellitus penitentiary insulin use: unspecified intermediate manager insulin use status Diabetes mellitus complication status: with circulatory complication (2) ESRD (end stage renal disease) Code(s): N18.6 - END STAGE RENAL DISEASE (3) Foot ulcer due to secondary DM Code(s): E13.621 - OTHER SPECIFIED DIABETES MELLITUS WITH FOOT ULCER; L97.509 - NON-PRESSURE CHRONIC ULCER OTH PRT UNSP FOOT W UNSP SEVERITY (4) HTN (hypertension) Code(s): I10 - ESSENTIAL (PRIMARY) HYPERTENSION (5) Cellulitis Code(s): L03.90 - CELLULITIS, UNSPECIFIED Qualifiers: Site of cellulitis: extremity Site of cellulitis of extremity: toe Laterality: right Qualified Code(s): L03.031 - Cellulitis of right toe (6) HLD (hyperlipidemia) Code(s): E78.5 - HYPERLIPIDEMIA, UNSPECIFIED (7) Toe infection Code(s): L08.9 - LOCAL INFECTION OF THE SKIN AND SUBCUTANEOUS TISSUE, UNSP Assessment/Plan 62 y.o. male with PMH of IDDM, ESRD on HD, HTN, diverticulosis, GERD, CHF, and Rt foot 4th/5th toe transmetarsal amp site nonhealing wound/OM with highly resistant organisms (ESBL klebsiella, VRE) presenting with fever, leukocytosis recently discharged on Tygacil, Rt foot edema. 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
[2018-02-20] MEDS ORDERED: DAPTOMYCIN IVPB SCH (13:00)
[2018-02-20] MEDS ORDERED: SODIUM CHLORIDE IVPB SCH (13:00)
[2018-02-20] MEDS ORDERED: MEROPENEM 500 MG VIAL (RESTRICTED TO ID) IVPB SCH (13:15)
[2018-02-20] MEDS: TIGECYCLINE 50 MG in DEXTROSE 5%-WATER - 100 ML IVPB SCH ×2 (15:57→22:15)
[2018-02-20] MEDS: MEROPENEM 500 MG in DEXTROSE 5%-WATER 100 ML IVPB SCH ×2 (15:57→22:15)
--- NOTE | 2018-02-20 16:53 | HP ---
Admitting History and Physical - Admission History of Present Illness: Pt is a 62 y/o male w/ PMh significant for ESRD on Hd (MWF), HTN and IDDM, Pt presented to the ER w/ chills and fever -Tmax 103.3. Pt was recently dc'ed from [facility] on antibxs for ESBL and osteomyelitis and non-healing R foot ulcer with iv tigecycline. Pt woke up with chills and fever, and increased nausea and salivation but no vomiting. Pt reports dry nonproductive cough for 1 week. However pt denies any palpitations, no SOB, no chest pain, and no wheezing. Pt has had increased acid reflux with loss of appetite. Pt has a reduced sensation in the feet but has been having VNS come to dress the wound. Last dressing was yesterday. No dysuria, no change in bowel habits. - Past Medical History Cardiovascular: Yes: HTN Renal/: Yes: Renal Failure Heme/Onc: Yes: Anemia Infectious Disease: Yes: Other (osteomyelitis) Endocrine: Yes: Diabetes Mellitus - Past Surgical History Additional Past Surgical History: Amputation rt toes - Smoking History Smoking history: Unknown if ever smoked Have you smoked in the past 12 months: No Aproximately how many cigarettes per day: 0 - Alcohol/Substance Use Hx Alcohol Use: No Home Medications - Allergies Allergies/Adverse Reactions: Allergies Allergy/AdvReac Type Severity Reaction Status Date / Time Pork/Porcine Containing Allergy Verified 02/19/18 13:32 Products - Home Medications Home Medications: Ambulatory Orders Cinacalcet HCl [Sensipar] 60 mg PO DAILY 09/28/14 Hum Insulin NPH/Reg Insulin Hm [Novolin 70-30 U100 Cartridge] 40 unit SQ BID Aspirin [ASA -] 81 mg PO DAILY #30 tab.chew 10/03/14 Atorvastatin Ca [Lipitor] 40 mg PO HS #30 tablet 10/03/14 cloNIDine HCL [Catapres -] 0.1 mg PO BID #60 tablet 10/03/14 Metoclopramide HCl [Reglan] 5 mg PO TID #0 tablet 04/28/16 Pantoprazole Sodium [Protonix] 40 mg PO DAILY #0 tablet. 04/28/16 Sevelamer Carbonate [Renvela -] 2,400 mg PO TID 04/28/16 Ammonium Lactate Lotion [Lac-Hydrin 12] 1 applic TP BID PRN bottle 02/08/18 Family Disease History - Family Disease History Family History: Unremarkable Review of Systems - Review of Systems Constitutional: reports: Fever, Loss of Appetite, Weakness Eyes: reports: No Symptoms HENT: reports: No Symptoms Neck: reports: No Symptoms Cardiovascular: reports: No Symptoms Respiratory: reports: Cough Gastrointestinal: reports: Nausea Genitourinary: reports: No Symptoms Physical Examination Vital Signs: Vital Signs Temperature 98.6 F 02/20/18 10:01 Pulse Rate 90 02/20/18 10:01 Respiratory Rate 20 02/20/18 10:01 Blood Pressure 115/60 02/20/18 10:01 O2 Sat by Pulse Oximetry (%) 96 02/20/18 09:00 Constitutional: Yes: Well Nourished HENT: Yes: WNL Neck: Yes: WNL, Supple Cardiovascular: Yes: WNL, Regular Rate and Rhythm Respiratory: Yes: WNL, Regular, CTA Bilaterally Gastrointestinal: Yes: WNL, Normal Bowel Sounds, Soft, Abdomen, Obese Musculoskeletal: Yes: WNL Extremities: Yes: Other (Amputation rt toes) Labs: CBC, BMP 02/20/18 08:00 02/20/18 08:00 Problem List - Problems (1) Sepsis Assessment/Plan: IV antibxs as per ID Follow cultures Code(s): A41.9 - SEPSIS, UNSPECIFIED ORGANISM Qualifiers: Sepsis type: sepsis due to unspecified organism Qualified Code(s): A41.9 - Sepsis, unspecified organism (2) Diabetes Assessment/Plan: Cont sliding scale w/ coverage Code(s): E11.9 - TYPE 2 DIABETES MELLITUS WITHOUT COMPLICATIONS Qualifiers: Diabetes mellitus retirement insulin use: unspecified termination clerk insulin use status Diabetes mellitus complication status: with circulatory complication (3) ESRD (end stage renal disease) Code(s): N18.6 - END STAGE RENAL DISEASE (4) HTN (hypertension) Assessment/Plan: Cont metoprolol/catapress Code(s): I10 - ESSENTIAL (PRIMARY) HYPERTENSION (5) HLD (hyperlipidemia) Assessment/Plan: Cont lipitor Code(s): E78.5 - HYPERLIPIDEMIA, UNSPECIFIED
--- NOTE | 2018-02-20 17:50 | PN ---
Progress Note (short form) - Note Progress Note: chronic diabetic foot wound acute fever blood c/s g neg bacilli dapto d/c added meropenem continue tygacil esrd on hd h/o om and amputation 3/4 digits dm htn diastolic chf diverticulosis Current Medications Acetaminophen (Tylenol -) 650 mg PO Q6H PRN PRN Reason: FEVER Last Admin: 02/20/18 02:28 Dose: 650 mg Aspirin (Asa -) 81 mg PO DAILY [facility] Last Admin: 02/20/18 10:02 Dose: 81 mg Atorvastatin Calcium (Lipitor -) 40 mg PO HS [facility] Cinacalcet (Sensipar -) 60 mg PO DAILY [facility] Last Admin: 02/20/18 10:04 Dose: 60 mg Clonidine (Catapres -) 0.1 mg PO BID [facility] Last Admin: 02/20/18 10:02 Dose: 0.1 mg Heparin Sodium (Porcine) (Heparin -) 5,000 unit SQ BID [facility] Last Admin: 02/20/18 10:04 Dose: 5,000 unit Tigecycline 50 mg/ Dextrose 100 mls @ 100 mls/hr IVPB BID [facility] PRN Reason: Protocol Last Admin: 02/20/18 15:57 Dose: 100 mls/hr Meropenem 500 mg/ Dextrose 100 mls @ 200 mls/hr IVPB BID [facility] Last Admin: 02/20/18 15:57 Dose: 200 mls/hr Insulin Aspart (Novolog Mix 70/30 Vial) 40 units SQ BIDAC [facility] Last Admin: 02/20/18 06:04 Dose: Not Given Insulin Aspart (Novolog Vial Sliding Scale -) 1 vial SQ ACHS [facility] PRN Reason: Protocol Last Admin: 02/20/18 13:57 Dose: Not Given Lactic Acid (Lac-Hydrin 12) 1 applic TP BID PRN PRN Reason: WOUND CARE Last Admin: 02/20/18 10:03 Dose: 1 applic Metoprolol Tartrate (Lopressor -) 25 mg PO BID [facility] Last Admin: 02/20/18 10:02 Dose: 25 mg Ondansetron HCl (Zofran Injection) 4 mg IVPUSH Q6H PRN PRN Reason: NAUSEA AND/OR VOMITING Pantoprazole Sodium (Protonix -) 40 mg PO DAILY [facility] Last Admin: 02/20/18 10:02 Dose: 40 mg Last Vital Signs Temp Pulse Resp BP Pulse Ox 98.6 F 90 20 115/60 96 02/20/18 10:01 02/20/18 10:01 02/20/18 10:01 02/20/18 10:01 02/20/18 09:00 CBC, BMP 02/20/18 08:00 02/20/18 08:00 Plan- HD tomorrow
[2018-02-20] MEDS: ATORVASTATIN CA 40 MG TABLET (FP) PO SCH (22:15)
[2018-02-21] MEDS: INSULIN SLIDING SCALE (NOVOLOG) 1 VIAL SQ SCH ×4 (06:18→22:49)
[2018-02-21] MEDS: INSULIN (NOVOLOG MIX 70/30) 100 UNITS/ML MDV SQ SCH ×2 (06:18→16:54)
--- NOTE | 2018-02-21 08:32 | PN ---
Progress Note, Physician Chief Complaint: alert, no complaints tolerated beta ema no further sig ectopy - Current Medication List Current Medications: Active Medications Acetaminophen (Tylenol -) 650 mg PO Q6H PRN PRN Reason: FEVER Last Admin: 02/20/18 20:11 Dose: 650 mg Aspirin (Asa -) 81 mg PO DAILY [facility] Last Admin: 02/20/18 10:02 Dose: 81 mg Atorvastatin Calcium (Lipitor -) 40 mg PO HS [facility] Last Admin: 02/20/18 22:15 Dose: 40 mg Cinacalcet (Sensipar -) 60 mg PO DAILY [facility] Last Admin: 02/20/18 10:04 Dose: 60 mg Clonidine (Catapres -) 0.1 mg PO BID [facility] Last Admin: 02/20/18 22:15 Dose: 0.1 mg Heparin Sodium (Porcine) (Heparin -) 5,000 unit SQ BID [facility] Last Admin: 02/20/18 22:15 Dose: 5,000 unit Tigecycline 50 mg/ Dextrose 100 mls @ 100 mls/hr IVPB BID [facility] PRN Reason: Protocol Last Admin: 02/20/18 22:15 Dose: 100 mls/hr Meropenem 500 mg/ Dextrose 100 mls @ 200 mls/hr IVPB BID [facility] Last Admin: 02/20/18 22:15 Dose: 200 mls/hr Insulin Aspart (Novolog Mix 70/30 Vial) 40 units SQ BIDAC [facility] Last Admin: 02/21/18 06:18 Dose: Not Given Insulin Aspart (Novolog Vial Sliding Scale -) 1 vial SQ ACHS [facility] PRN Reason: Protocol Last Admin: 02/21/18 06:18 Dose: Not Given Lactic Acid (Lac-Hydrin 12) 1 applic TP BID PRN PRN Reason: WOUND CARE Last Admin: 02/20/18 10:03 Dose: 1 applic Metoprolol Tartrate (Lopressor -) 25 mg PO BID [facility] Last Admin: 02/20/18 22:15 Dose: 25 mg Ondansetron HCl (Zofran Injection) 4 mg IVPUSH Q6H PRN PRN Reason: NAUSEA AND/OR VOMITING Last Admin: 02/20/18 20:12 Dose: 4 mg Pantoprazole Sodium (Protonix -) 40 mg PO DAILY [facility] Last Admin: 02/20/18 10:02 Dose: 40 mg - Objective Vital Signs: Vital Signs Temperature 98.2 F 04/16/18 06:23 Pulse Rate 72 02/21/18 06:23 Respiratory Rate 18 02/21/18 06:23 Blood Pressure 140/65 02/21/18 06:23 O2 Sat by Pulse Oximetry (%) 92 L 02/20/18 21:00 Constitutional: Yes: No Distress, Calm Cardiovascular: Yes: Regular Rate and Rhythm Respiratory: Yes: CTA Bilaterally Gastrointestinal: Yes: Soft, Abdomen, Obese Edema: No Neurological: Yes: Alert Labs: CBC, BMP 02/20/18 08:00 02/20/18 08:00 INR, PTT INR 1.29 (0.82-1.09) H 02/19/18 14:43 - ....Imaging EKG: Image Reviewed Problem List - Problems (1) NSVT (nonsustained ventricular tachycardia) Code(s): I47.2 - VENTRICULAR TACHYCARDIA (2) PSVT (paroxysmal supraventricular tachycardia) Code(s): I47.1 - SUPRAVENTRICULAR TACHYCARDIA (3) Elevated troponin I measurement Code(s): R74.8 - ABNORMAL LEVELS OF OTHER SERUM ENZYMES (4) Diabetes Code(s): E11.9 - TYPE 2 DIABETES MELLITUS WITHOUT COMPLICATIONS Qualifiers: Diabetes mellitus termite renewal inspector insulin use: unspecified skilled nursing insulin use status Diabetes mellitus complication status: with circulatory complication (5) ESRD (end stage renal disease) Code(s): N18.6 - END STAGE RENAL DISEASE (6) Foot ulcer due to secondary DM Code(s): E13.621 - OTHER SPECIFIED DIABETES MELLITUS WITH FOOT ULCER; L97.509 - NON-PRESSURE CHRONIC ULCER OTH PRT UNSP FOOT W UNSP SEVERITY (7) Sepsis Code(s): A41.9 - SEPSIS, UNSPECIFIED ORGANISM Qualifiers: Sepsis type: sepsis due to unspecified organism Qualified Code(s): A41.9 - Sepsis, unspecified organism (8) Cellulitis Code(s): L03.90 - CELLULITIS, UNSPECIFIED Qualifiers: Site of cellulitis: extremity Site of cellulitis of extremity: toe Laterality: right Qualified Code(s): L03.031 - Cellulitis of right toe Assessment/Plan IMP: SIRS syndrome in setting of likely RLE foot infection, gram - bacteremia DM ESRD on HD NSVT PSVT Chronic HTN Elevated TnI, most probably due to SIRS/early sepsis/ESRD/chronic diastolic CHF- - not due to ACS REC: 1. Cultures, abx as per PMD and ID 2. Cont Metoprolol tartrate 25mg PO BID for control of PSVT, NSVT and concomitant HTN 3. Echo to assess LVEF 4. Continue telemetry for additional 24 hours to assess response to beta ema 5. Recent outpatient nuclear stress showed no ischemia. At this point, no plan to repeat ischemic work up unless condition changes or echo shows change in LVEF 6. Continue ASA 81mg daily and check fasting lipids.
[2018-02-21 08:55] LABS: BASO % 0.6 % (0-2.0); EOS % 1.1 % (0-4.5); HEMATOCRIT 28.1 % (35.4-49); HEMOGLOBIN 9.5 GM/dL (11.7-16.9); LYMPH % 8.3 % (8-40); MCH 29.4 pg (25.7-33.7); MCHC 33.9 g/dl (32.0-35.9); MEAN CELL VOLUME 86.6 fl (80-96); MEAN PLT VOLUME 9.6 fl (7.5-11.1); MONO % 10.6 % (3.8-10.2); NEUT % 79.4 % (42.8-82.8); PLATELET COUNT 159 K/MM3 (134-434); RBC 3.24 M/mm3 (4.00-5.60); RDW 15.4 % (11.9-15.9); WHITE BLOOD COUNT 9.7 K/mm3 (4.0-10.0)
[2018-02-21 09:41] LABS: CHLORIDE 90 mmol/L (98-107); POTASSIUM 5.7 mmol/L (3.5-5.1); SODIUM 131 mmol/L (136-145)
[2018-02-21] MEDS ORDERED: PT OWN MED DRAWER 7, Y5N ONE ×2 (09:47→21:13)
[2018-02-21] MEDS: TIGECYCLINE 50 MG in DEXTROSE 5%-WATER - 100 ML IVPB SCH (09:49)
[2018-02-21] MEDS: ASPIRIN 81 MG CHEWABLE TABLETS PO SCH (09:49)
[2018-02-21] MEDS: HEPARIN NA (PORCINE) 5,000 UNITS/ML 1ML VIAL SQ SCH ×2 (09:49→21:33)
[2018-02-21] MEDS: MEROPENEM 500 MG in DEXTROSE 5%-WATER 100 ML IVPB SCH ×2 (09:49→21:33)
[2018-02-21] MEDS: PANTOPRAZOLE 40 MG TABLET (FP) PO SCH (09:50)
[2018-02-21] MEDS: CINACALCET HCL 30 MG TAB (FP) PO SCH (09:50)
[2018-02-21 09:56] LABS: ALK PHOS 125 U/L (45-117); ANION GAP 17 (8-16); BILIRUBIN,TOTAL 0.6 mg/dL (0.2-1.0); BLOOD UREA NITROGEN 86 mg/dL (7-18); CALCIUM 7.9 mg/dL (8.5-10.1); CO2 24 mmol/L (21-32); GLUCOSE,RANDOM 113 mg/dL (74-106); SGOT/AST 22 U/L (15-37); SGPT/ALT 16 U/L (12-78); TOT PROT 7.1 g/dl (6.4-8.2)
[2018-02-21 10:19] LABS: CREATININE 10.8 mg/dL (0.7-1.3)
--- NOTE | 2018-02-21 12:47 | EKG ---
Test Reason : Blood Pressure : / mmHG Vent. Rate : 103 BPM Atrial Rate : 103 BPM P-R Int : 142 ms QRS Dur : 080 ms QT Int : 362 ms P-R-T Axes : 032 -29 066 degrees QTc Int : 474 ms BASELINE ARTIFACT POOR DATA QUALITY IN CURRENT ECG PRECLUDES SERIAL COMPARISON SINUS TACHYCARDIA WITH PREMATURE ATRIAL COMPLEXES NONSPECIFIC T WAVE ABNORMALITY ABNORMAL ECG WHEN COMPARED WITH ECG OF 01-FEB-2018 09:10, PREMATURE VENTRICULAR COMPLEXES ARE NO LONGER PRESENT PREMATURE ATRIAL COMPLEXES ARE NOW PRESENT Confirmed by VIVEK SMITH MD ([id number]) on 02/21/2018 12:47:45 PM Referred By: Confirmed By:VIVEK SMITH MD
[2018-02-21] MEDS: cloNIDine HCL 0.1 MG TABLET PO SCH ×2 (14:25→21:34)
[2018-02-21] MEDS: METOPROLOL TARTRATE 25 MG TABLET (FP) PO SCH ×2 (14:26→21:34)
--- NOTE | 2018-02-21 15:18 | PN ---
Progress Note, Physician Chief Complaint: The patient seen in his room. Dialysis in progress. Denies any new complaints. The dressings in tact over the feet. - Current Medication List Current Medications: Active Medications Acetaminophen (Tylenol -) 650 mg PO Q6H PRN PRN Reason: FEVER Last Admin: 02/20/18 20:11 Dose: 650 mg Aspirin (Asa -) 81 mg PO DAILY [facility] Last Admin: 02/21/18 09:49 Dose: 81 mg Atorvastatin Calcium (Lipitor -) 40 mg PO HS [facility] Last Admin: 02/20/18 22:15 Dose: 40 mg Cinacalcet (Sensipar -) 60 mg PO DAILY [facility] Last Admin: 02/21/18 09:50 Dose: 60 mg Clonidine (Catapres -) 0.1 mg PO BID [facility] Last Admin: 02/21/18 14:25 Dose: 0.1 mg Heparin Sodium (Porcine) (Heparin -) 5,000 unit SQ BID [facility] Last Admin: 02/21/18 09:49 Dose: 5,000 unit Tigecycline 50 mg/ Dextrose 100 mls @ 100 mls/hr IVPB BID [facility] PRN Reason: Protocol Last Admin: 02/21/18 09:49 Dose: 100 mls/hr Meropenem 500 mg/ Dextrose 100 mls @ 200 mls/hr IVPB BID [facility] Last Admin: 02/21/18 09:49 Dose: 200 mls/hr Insulin Aspart (Novolog Mix 70/30 Vial) 40 units SQ BIDAC [facility] Last Admin: 02/21/18 06:18 Dose: Not Given Insulin Aspart (Novolog Vial Sliding Scale -) 1 vial SQ ACHS [facility] PRN Reason: Protocol Last Admin: 02/21/18 12:42 Dose: Not Given Lactic Acid (Lac-Hydrin 12) 1 applic TP BID PRN PRN Reason: WOUND CARE Last Admin: 02/20/18 10:03 Dose: 1 applic Metoprolol Tartrate (Lopressor -) 25 mg PO BID [facility] Last Admin: 02/21/18 14:26 Dose: 25 mg Ondansetron HCl (Zofran Injection) 4 mg IVPUSH Q6H PRN PRN Reason: NAUSEA AND/OR VOMITING Last Admin: 02/20/18 20:12 Dose: 4 mg Pantoprazole Sodium (Protonix -) 40 mg PO DAILY [facility] Last Admin: 02/21/18 09:50 Dose: 40 mg - Objective Vital Signs: Vital Signs Temperature 98.2 F 02/21/18 13:20 Pulse Rate 80 02/21/18 13:20 Respiratory Rate 21 02/21/18 13:20 Blood Pressure 147/86 02/21/18 13:20 O2 Sat by Pulse Oximetry (%) 92 L 02/21/18 09:00 Constitutional: Yes: No Distress, Calm HENT: Yes: Normocephalic Neck: Yes: Trachea Midline Cardiovascular: Yes: Regular Rate and Rhythm, S1, S2 Respiratory: Yes: CTA Bilaterally, Diminished Gastrointestinal: Yes: Normal Bowel Sounds, Soft, Abdomen, Obese Edema: LLE: Trace, RLE: Trace Wound/Incision: Yes: Dressing Dry and Intact Labs: CBC, BMP 02/21/18 08:40 02/21/18 08:40 INR, PTT INR 1.29 (0.82-1.09) H 02/19/18 14:43 Problem List - Problems (1) Diabetes Code(s): E11.9 - TYPE 2 DIABETES MELLITUS WITHOUT COMPLICATIONS Qualifiers: Diabetes mellitus usp insulin use: unspecified lobsterman insulin use status Diabetes mellitus complication status: with circulatory complication (2) ESRD (end stage renal disease) Code(s): N18.6 - END STAGE RENAL DISEASE (3) HTN (hypertension) Code(s): I10 - ESSENTIAL (PRIMARY) HYPERTENSION (4) Sepsis Code(s): A41.9 - SEPSIS, UNSPECIFIED ORGANISM Qualifiers: Sepsis type: sepsis due to unspecified organism Qualified Code(s): A41.9 - Sepsis, unspecified organism (5) Toe gangrene Code(s): I96 - GANGRENE, NOT ELSEWHERE CLASSIFIED (6) Toe infection Code(s): L08.9 - LOCAL INFECTION OF THE SKIN AND SUBCUTANEOUS TISSUE, UNSP Assessment/Plan Chronic diabetic foot wound, Acute fever . Sepsis with GN bacilli dapto d/c added meropenem continue tygacil Esrd on hd. Dialysis well tolerated. h/o om and amputation 3/4 digits DM2, HTN. Diastolic chf Orders reviewed with the RN. Will follow the patient with you. Elizabet Arteaga MD
[2018-02-21 16:15] LABS: CREATININE 4.2 mg/dL (0.7-1.3)
--- NOTE | 2018-02-21 16:23 | PN ---
Progress Note, Physician History of Present Illness: no complaints starting to feel better - Current Medication List Current Medications: Active Medications Acetaminophen (Tylenol -) 650 mg PO Q6H PRN PRN Reason: FEVER Last Admin: 02/20/18 20:11 Dose: 650 mg Aspirin (Asa -) 81 mg PO DAILY [facility] Last Admin: 02/21/18 09:49 Dose: 81 mg Atorvastatin Calcium (Lipitor -) 40 mg PO HS [facility] Last Admin: 02/20/18 22:15 Dose: 40 mg Cinacalcet (Sensipar -) 60 mg PO DAILY [facility] Last Admin: 02/21/18 09:50 Dose: 60 mg Clonidine (Catapres -) 0.1 mg PO BID [facility] Last Admin: 02/21/18 14:25 Dose: 0.1 mg Heparin Sodium (Porcine) (Heparin -) 5,000 unit SQ BID [facility] Last Admin: 02/21/18 09:49 Dose: 5,000 unit Tigecycline 50 mg/ Dextrose 100 mls @ 100 mls/hr IVPB BID [facility] PRN Reason: Protocol Last Admin: 02/21/18 09:49 Dose: 100 mls/hr Meropenem 500 mg/ Dextrose 100 mls @ 200 mls/hr IVPB BID [facility] Last Admin: 02/21/18 09:49 Dose: 200 mls/hr Insulin Aspart (Novolog Mix 70/30 Vial) 40 units SQ BIDAC [facility] Last Admin: 02/21/18 06:18 Dose: Not Given Insulin Aspart (Novolog Vial Sliding Scale -) 1 vial SQ ACHS [facility] PRN Reason: Protocol Last Admin: 02/21/18 12:42 Dose: Not Given Lactic Acid (Lac-Hydrin 12) 1 applic TP BID PRN PRN Reason: WOUND CARE Last Admin: 02/20/18 10:03 Dose: 1 applic Metoprolol Tartrate (Lopressor -) 25 mg PO BID [facility] Last Admin: 02/21/18 14:26 Dose: 25 mg Ondansetron HCl (Zofran Injection) 4 mg IVPUSH Q6H PRN PRN Reason: NAUSEA AND/OR VOMITING Last Admin: 02/20/18 20:12 Dose: 4 mg Pantoprazole Sodium (Protonix -) 40 mg PO DAILY [facility] Last Admin: 02/21/18 09:50 Dose: 40 mg - Objective Vital Signs: Vital Signs Temperature 98.2 F 02/21/18 13:20 Pulse Rate 82 02/21/18 14:20 Respiratory Rate 18 02/21/18 14:20 Blood Pressure 169/104 02/21/18 14:20 O2 Sat by Pulse Oximetry (%) 92 L 02/21/18 09:00 Constitutional: Yes: No Distress, Calm Cardiovascular: Yes: Regular Rate and Rhythm Respiratory: Yes: Regular, CTA Bilaterally Gastrointestinal: Yes: Normal Bowel Sounds, Soft Musculoskeletal: Yes: WNL Extremities: Yes: Other Wound/Incision: Yes: Dressing Dry and Intact Neurological: Yes: Alert, Oriented Psychiatric: Yes: Alert, Oriented Labs: CBC, BMP 02/21/18 08:40 02/21/18 14:05 INR, PTT INR 1.29 (0.82-1.09) H 02/19/18 14:43 Assessment/Plan Problem List - Problems (1) Diabetes Code(s): E11.9 - TYPE 2 DIABETES MELLITUS WITHOUT COMPLICATIONS Qualifiers: Diabetes mellitus termination clerk insulin use: unspecified termination clerk insulin use status Diabetes mellitus complication status: with circulatory complication (2) ESRD (end stage renal disease) Code(s): N18.6 - END STAGE RENAL DISEASE (3) Foot ulcer due to secondary DM Code(s): E13.621 - OTHER SPECIFIED DIABETES MELLITUS WITH FOOT ULCER; L97.509 - NON-PRESSURE CHRONIC ULCER OTH PRT UNSP FOOT W UNSP SEVERITY (4) HTN (hypertension) Code(s): I10 - ESSENTIAL (PRIMARY) HYPERTENSION (5) Cellulitis Code(s): L03.90 - CELLULITIS, UNSPECIFIED Qualifiers: Site of cellulitis: extremity Site of cellulitis of extremity: toe Laterality: right Qualified Code(s): L03.031 - Cellulitis of right toe (6) HLD (hyperlipidemia) Code(s): E78.5 - HYPERLIPIDEMIA, UNSPECIFIED (7) Toe infection Code(s): L08.9 - LOCAL INFECTION OF THE SKIN AND SUBCUTANEOUS TISSUE, UNSP Assessment/Plan 62 y.o. male with PMH of IDDM, ESRD on HD, HTN, diverticulosis, GERD, CHF, and Rt foot 4th/5th toe transmetarsal amp site nonhealing wound/OM with highly resistant organisms (ESBL klebsiella, VRE) presenting with fever, leukocytosis recently discharged on Tygacil, Rt foot edema. plan continue current abx close monitoring wound care podiatry to see the patient rest as per the primary team await for cx report
[2018-02-21] MEDS ORDERED: INSULIN (NOVOLOG MIX 70/30) 100 UNITS/ML MDV SQ ONE (16:51)
[2018-02-21] MEDS: ATORVASTATIN CA 40 MG TABLET (FP) PO SCH (21:34)
--- NOTE | 2018-02-21 21:54 | CONSULT ---
Consult - text type - Consultation Consultation Note: Patient seen in bed. Was admitted on Wednesday for fever and chills. vss. Tmax 98.9 dressing removed, 2 wounds noted, 1 of them new proximal to surgical wound, proximal wound is new grade 3 approximately size of a quarter, +granulating wound right where amputation was done before, wbc=9.7, +foul odor, +blood cultures, cat scan no acute om, +lactose payment analyst neg bacilli, granulating wound right foot grade 3 new necrotic wound proximal right foot MRI in AM new wound right. ESR, Creactive protein ordered. santyl dressing daily. ivabx as per id. will follow.
--- NOTE | 2018-02-21 22:08 | PN ---
Progress Note, Physician History of Present Illness: No new complaints - Current Medication List Current Medications: Active Medications Acetaminophen (Tylenol -) 650 mg PO Q6H PRN PRN Reason: FEVER Last Admin: 02/20/18 20:11 Dose: 650 mg Aspirin (Asa -) 81 mg PO DAILY [facility] Last Admin: 02/21/18 09:49 Dose: 81 mg Atorvastatin Calcium (Lipitor -) 40 mg PO HS [facility] Last Admin: 02/21/18 21:34 Dose: 40 mg Cinacalcet (Sensipar -) 60 mg PO DAILY [facility] Last Admin: 02/21/18 09:50 Dose: 60 mg Clonidine (Catapres -) 0.1 mg PO BID [facility] Last Admin: 02/21/18 21:34 Dose: 0.1 mg Collagenase (Santyl -) 1 applic TP DAILY [facility] Heparin Sodium (Porcine) (Heparin -) 5,000 unit SQ BID [facility] Last Admin: 02/21/18 21:33 Dose: 5,000 unit Meropenem 500 mg/ Dextrose 100 mls @ 200 mls/hr IVPB BID [facility] Last Admin: 02/21/18 21:33 Dose: 200 mls/hr Insulin Aspart (Novolog Mix 70/30 Vial) 40 units SQ BIDAC [facility] Last Admin: 02/21/18 16:54 Dose: 40 unit Insulin Aspart (Novolog Vial Sliding Scale -) 1 vial SQ ACHS [facility] PRN Reason: Protocol Last Admin: 02/21/18 16:54 Dose: 2 units Lactic Acid (Lac-Hydrin 12) 1 applic TP BID PRN PRN Reason: WOUND CARE Last Admin: 02/20/18 10:03 Dose: 1 applic Metoprolol Tartrate (Lopressor -) 25 mg PO BID [facility] Last Admin: 02/21/18 21:34 Dose: 25 mg Ondansetron HCl (Zofran Injection) 4 mg IVPUSH Q6H PRN PRN Reason: NAUSEA AND/OR VOMITING Last Admin: 02/20/18 20:12 Dose: 4 mg Pantoprazole Sodium (Protonix -) 40 mg PO DAILY [facility] Last Admin: 02/21/18 09:50 Dose: 40 mg - Objective Vital Signs: Vital Signs Temperature 98.9 F 02/21/18 17:56 Pulse Rate 76 02/21/18 17:56 Respiratory Rate 20 02/21/18 17:56 Blood Pressure 132/17 02/21/18 17:56 O2 Sat by Pulse Oximetry (%) 92 L 02/21/18 09:00 Constitutional: Yes: Well Nourished Eyes: Yes: WNL HENT: Yes: WNL, Tonsillar Exudate Neck: Yes: WNL Cardiovascular: Yes: WNL Respiratory: Yes: WNL, Regular, CTA Bilaterally, Other ((+) pic line ant rt chest wall) Gastrointestinal: Yes: WNL, Normal Bowel Sounds, Soft Extremities: Yes: Other ((+) amputation rt toes) Labs: CBC, BMP 02/21/18 08:40 02/21/18 14:05 INR, PTT INR 1.29 (0.82-1.09) H 02/19/18 14:43 Problem List - Problems (1) Sepsis Assessment/Plan: Cont IV antibxs Follow cultures As per ID Code(s): A41.9 - SEPSIS, UNSPECIFIED ORGANISM Qualifiers: Sepsis type: sepsis due to unspecified organism Qualified Code(s): A41.9 - Sepsis, unspecified organism (2) Diabetes Assessment/Plan: Cont sliding scale w/ coverage Cont novolog 70/30 Code(s): E11.9 - TYPE 2 DIABETES MELLITUS WITHOUT COMPLICATIONS Qualifiers: Diabetes mellitus terminal operator insulin use: unspecified custodial insulin use status Diabetes mellitus complication status: with circulatory complication (3) ESRD (end stage renal disease) Assessment/Plan: Dialysis as per renal Code(s): N18.6 - END STAGE RENAL DISEASE (4) HTN (hypertension) Assessment/Plan: Cont metoprolol/catapress Code(s): I10 - ESSENTIAL (PRIMARY) HYPERTENSION (5) HLD (hyperlipidemia) Assessment/Plan: Cont lipitor Code(s): E78.5 - HYPERLIPIDEMIA, UNSPECIFIED
[2018-02-22 06:06] LABS: HBSAG SCREEN Negative (Negative); HEP B CORE AB, TOT Negative (Negative)
[2018-02-22] MEDS: INSULIN (NOVOLOG MIX 70/30) 100 UNITS/ML MDV SQ SCH ×2 (06:24→17:04)
[2018-02-22] MEDS: INSULIN SLIDING SCALE (NOVOLOG) 1 VIAL SQ SCH ×4 (06:24→21:43)
--- NOTE | 2018-02-22 09:35 | PN ---
Progress Note (short form) - Note Progress Note: Vascular Surgery - Lui Keller Patient well know to Podiatry/Davida. s/p debride bone & soft tissue, remove distal, middle and proximal phalanx 4th toe, resection 4th met head, wound and bone culture, autologus flap 01/23/18 Pt with palpable popliteal pulse, palpable DP pulse. Daily wound care being managed by Podiatry No vascular intervention. Please reconsult prn On behalf of Dr. Keller, thank you for the opportunity to participate in your patient's care
[2018-02-22] MEDS: METOPROLOL TARTRATE 25 MG TABLET (FP) PO SCH ×2 (10:02→21:42)
[2018-02-22] MEDS: PANTOPRAZOLE 40 MG TABLET (FP) PO SCH (10:02)
[2018-02-22] MEDS: CINACALCET HCL 30 MG TAB (FP) PO SCH (10:02)
[2018-02-22] MEDS: ASPIRIN 81 MG CHEWABLE TABLETS PO SCH (10:02)
[2018-02-22] MEDS: cloNIDine HCL 0.1 MG TABLET PO SCH ×2 (10:02→21:42)
[2018-02-22] MEDS: HEPARIN NA (PORCINE) 5,000 UNITS/ML 1ML VIAL SQ SCH ×2 (10:02→21:43)
[2018-02-22] MEDS: COLLAGENASE CLOSTRIDIUM HIST. 30 GRAMS TUBE TP SCH (10:02)
[2018-02-22] MEDS: MEROPENEM 500 MG in DEXTROSE 5%-WATER 100 ML IVPB SCH (10:02)
--- NOTE | 2018-02-22 10:17 | PN ---
Progress Note, Physician Chief Complaint: no distress no new complaints TELE: short self limited run PAT - Current Medication List Current Medications: Active Medications Acetaminophen (Tylenol -) 650 mg PO Q6H PRN PRN Reason: FEVER Last Admin: 02/20/18 20:11 Dose: 650 mg Aspirin (Asa -) 81 mg PO DAILY [facility] Last Admin: 02/22/18 10:02 Dose: 81 mg Atorvastatin Calcium (Lipitor -) 40 mg PO HS [facility] Last Admin: 02/21/18 21:34 Dose: 40 mg Cinacalcet (Sensipar -) 60 mg PO DAILY [facility] Last Admin: 02/22/18 10:02 Dose: 60 mg Clonidine (Catapres -) 0.1 mg PO BID [facility] Last Admin: 02/22/18 10:02 Dose: 0.1 mg Collagenase (Santyl -) 1 applic TP DAILY [facility] Last Admin: 02/22/18 10:02 Dose: 1 applic Heparin Sodium (Porcine) (Heparin -) 5,000 unit SQ BID [facility] Last Admin: 02/22/18 10:02 Dose: 5,000 unit Meropenem 500 mg/ Dextrose 100 mls @ 200 mls/hr IVPB BID [facility] Last Admin: 02/22/18 10:02 Dose: 200 mls/hr Insulin Aspart (Novolog Mix 70/30 Vial) 40 units SQ BIDAC [facility] Last Admin: 02/22/18 06:24 Dose: Not Given Insulin Aspart (Novolog Vial Sliding Scale -) 1 vial SQ ACHS [facility] PRN Reason: Protocol Last Admin: 02/22/18 06:24 Dose: Not Given Lactic Acid (Lac-Hydrin 12) 1 applic TP BID PRN PRN Reason: WOUND CARE Last Admin: 02/20/18 10:03 Dose: 1 applic Metoprolol Tartrate (Lopressor -) 25 mg PO BID [facility] Last Admin: 02/22/18 10:02 Dose: 25 mg Ondansetron HCl (Zofran Injection) 4 mg IVPUSH Q6H PRN PRN Reason: NAUSEA AND/OR VOMITING Last Admin: 02/20/18 20:12 Dose: 4 mg Pantoprazole Sodium (Protonix -) 40 mg PO DAILY [facility] Last Admin: 02/22/18 10:02 Dose: 40 mg - Objective Vital Signs: Vital Signs Temperature 98.3 F 02/22/18 06:00 Pulse Rate 69 02/22/18 06:00 Respiratory Rate 20 02/22/18 06:00 Blood Pressure 125/56 02/22/18 06:00 O2 Sat by Pulse Oximetry (%) 92 L 02/21/18 21:00 Constitutional: Yes: No Distress, Calm Eyes: Yes: Conjunctiva Clear Cardiovascular: Yes: Regular Rate and Rhythm Respiratory: Yes: CTA Bilaterally Gastrointestinal: Yes: Soft, Abdomen, Obese Edema: Yes Edema: RUE: 1+, LLE: 1+ Neurological: Yes: Alert, Oriented ...Motor Strength: WNL Labs: CBC, BMP 02/21/18 08:40 02/21/18 14:05 INR, PTT INR 1.29 (0.82-1.09) H 02/19/18 14:43 Microbiology 02/19/18 14:43 Blood - Peripheral Venous Blood Culture - Preliminary NO GROWTH OBTAINED AFTER 48 HOURS, INCUBATION TO CONTINUE FOR 3 DAYS. Laboratory Tests 02/22/18 05:35 ESR 108 H - ....Imaging EKG: Image Reviewed Problem List - Problems (1) NSVT (nonsustained ventricular tachycardia) Code(s): I47.2 - VENTRICULAR TACHYCARDIA (2) PSVT (paroxysmal supraventricular tachycardia) Code(s): I47.1 - SUPRAVENTRICULAR TACHYCARDIA (3) Elevated troponin I measurement Code(s): R74.8 - ABNORMAL LEVELS OF OTHER SERUM ENZYMES (4) Diabetes Code(s): E11.9 - TYPE 2 DIABETES MELLITUS WITHOUT COMPLICATIONS Qualifiers: Diabetes mellitus junk removal specialist insulin use: unspecified junk removal specialist insulin use status Diabetes mellitus complication status: with circulatory complication (5) ESRD (end stage renal disease) Code(s): N18.6 - END STAGE RENAL DISEASE (6) Foot ulcer due to secondary DM Code(s): E13.621 - OTHER SPECIFIED DIABETES MELLITUS WITH FOOT ULCER; L97.509 - NON-PRESSURE CHRONIC ULCER OTH PRT UNSP FOOT W UNSP SEVERITY (7) Sepsis Code(s): A41.9 - SEPSIS, UNSPECIFIED ORGANISM Qualifiers: Sepsis type: sepsis due to unspecified organism Qualified Code(s): A41.9 - Sepsis, unspecified organism (8) Cellulitis Code(s): L03.90 - CELLULITIS, UNSPECIFIED Qualifiers: Site of cellulitis: extremity Site of cellulitis of extremity: toe Laterality: right Qualified Code(s): L03.031 - Cellulitis of right toe Assessment/Plan IMP: SIRS syndrome in setting of likely RLE foot infection, gram - bacteremia DM ESRD on HD NSVT PSVT Chronic HTN Elevated TnI, most probably due to SIRS/early sepsis/ESRD/chronic diastolic CHF- - not due to ACS REC: 1. Cultures, abx as per PMD and ID; MRI lower extremity pending. 2. Cont Metoprolol tartrate 25mg PO BID for control of PSVT, NSVT and concomitant HTN 3. Echo with mild reduction of LVEF, recent stress test without ischemia. 4. As PAT and PSVT are controlled, can d/c tele. 5. Continue ASA 81mg daily and check fasting lipids.
--- NOTE | 2018-02-22 15:02 | PN ---
Progress Note, Physician History of Present Illness: patient says that he is feeling very well no complaints - Current Medication List Current Medications: Active Medications Acetaminophen (Tylenol -) 650 mg PO Q6H PRN PRN Reason: FEVER Last Admin: 02/20/18 20:11 Dose: 650 mg Aspirin (Asa -) 81 mg PO DAILY [facility] Last Admin: 02/22/18 10:02 Dose: 81 mg Atorvastatin Calcium (Lipitor -) 40 mg PO HS [facility] Last Admin: 02/21/18 21:34 Dose: 40 mg Cinacalcet (Sensipar -) 60 mg PO DAILY [facility] Last Admin: 02/22/18 10:02 Dose: 60 mg Clonidine (Catapres -) 0.1 mg PO BID [facility] Last Admin: 02/22/18 10:02 Dose: 0.1 mg Collagenase (Santyl -) 1 applic TP DAILY [facility] Last Admin: 02/22/18 10:02 Dose: 1 applic Heparin Sodium (Porcine) (Heparin -) 5,000 unit SQ BID [facility] Last Admin: 02/22/18 10:02 Dose: 5,000 unit Ceftazidime/Avibactam 2.5 gm/ (Dextrose) 250 mls @ 125 mls/hr IVPB Q8H-IV [facility] PRN Reason: Protocol Insulin Aspart (Novolog Mix 70/30 Vial) 40 units SQ BIDAC [facility] Last Admin: 02/22/18 06:24 Dose: Not Given Insulin Aspart (Novolog Vial Sliding Scale -) 1 vial SQ ACHS [facility] PRN Reason: Protocol Last Admin: 02/22/18 11:50 Dose: 2 units Lactic Acid (Lac-Hydrin 12) 1 applic TP BID PRN PRN Reason: WOUND CARE Last Admin: 02/20/18 10:03 Dose: 1 applic Metoprolol Tartrate (Lopressor -) 25 mg PO BID [facility] Last Admin: 02/22/18 10:02 Dose: 25 mg Ondansetron HCl (Zofran Injection) 4 mg IVPUSH Q6H PRN PRN Reason: NAUSEA AND/OR VOMITING Last Admin: 02/20/18 20:12 Dose: 4 mg Pantoprazole Sodium (Protonix -) 40 mg PO DAILY [facility] Last Admin: 02/22/18 10:02 Dose: 40 mg - Objective Vital Signs: Vital Signs Temperature 98.3 F 02/22/18 06:00 Pulse Rate 69 02/22/18 06:00 Respiratory Rate 20 02/22/18 06:00 Blood Pressure 125/56 02/22/18 06:00 O2 Sat by Pulse Oximetry (%) 92 L 02/21/18 21:00 Constitutional: Yes: No Distress, Calm Cardiovascular: Yes: S1, S2 Respiratory: Yes: Regular, CTA Bilaterally Gastrointestinal: Yes: Normal Bowel Sounds, Soft Musculoskeletal: Yes: WNL Extremities: Yes: Other Wound/Incision: Yes: Dressing Dry and Intact Neurological: Yes: Alert, Oriented Psychiatric: Yes: Alert, Oriented Labs: CBC, BMP 02/21/18 08:40 02/21/18 14:05 INR, PTT INR 1.29 (0.82-1.09) H 02/19/18 14:43 Assessment/Plan Problem List - Problems (1) Diabetes Code(s): E11.9 - TYPE 2 DIABETES MELLITUS WITHOUT COMPLICATIONS Qualifiers: Diabetes mellitus terminal makeup operator insulin use: unspecified terminal makeup operator insulin use status Diabetes mellitus complication status: with circulatory complication (2) ESRD (end stage renal disease) Code(s): N18.6 - END STAGE RENAL DISEASE (3) Foot ulcer due to secondary DM Code(s): E13.621 - OTHER SPECIFIED DIABETES MELLITUS WITH FOOT ULCER; L97.509 - NON-PRESSURE CHRONIC ULCER OTH PRT UNSP FOOT W UNSP SEVERITY (4) HTN (hypertension) Code(s): I10 - ESSENTIAL (PRIMARY) HYPERTENSION (5) Cellulitis Code(s): L03.90 - CELLULITIS, UNSPECIFIED Qualifiers: Site of cellulitis: extremity Site of cellulitis of extremity: toe Laterality: right Qualified Code(s): L03.031 - Cellulitis of right toe (6) HLD (hyperlipidemia) Code(s): E78.5 - HYPERLIPIDEMIA, UNSPECIFIED (7) Toe infection Code(s): L08.9 - LOCAL INFECTION OF THE SKIN AND SUBCUTANEOUS TISSUE, UNSP Assessment/Plan 62 y.o. male with PMH of IDDM, ESRD on HD, HTN, diverticulosis, GERD, CHF, and Rt foot 4th/5th toe transmetarsal amp site nonhealing wound/OM with highly resistant organisms (ESBL klebsiella, VRE) presenting with fever, leukocytosis recently discharged on Tygacil, Rt foot edema. patients cx report noted patient growing CRE kliebsella plan will change abx to avycaz will repeat blood cx on wound care patient for imaging studies rest as per the team
[2018-02-22] MEDS ORDERED: CEFTAZIDIME/AVIBACTAM 2.5 GM in DEXTROSE 5%-WATER - 250 ML IVPB SCH (15:15)
--- NOTE | 2018-02-22 16:47 | PN ---
Progress Note (short form) - Note Progress Note: Renal follow up for ESRD on HD Pt seen and examined at the bedside awake and alert no acute complaints no fever, chills, sob, abd pain s/p dialysis yesterday Vital Signs Temperature 97.7 F 02/22/18 13:30 Pulse Rate 64 02/22/18 13:30 Respiratory Rate 17 02/22/18 13:30 Blood Pressure 120/78 02/22/18 13:30 O2 Sat by Pulse Oximetry (%) 94 L 02/22/18 10:00 Intake & Output 02/19/18 02/20/18 02/21/18 02/22/18 23:59 23:59 23:59 23:59 Intake Total 450 1570 1360 120 Balance 450 1570 1360 120 Weight 130.09 kg 130.09 kg 129.727 kg NAD MMM, NO JVD CTA 1+ LE edema CBC, BMP 02/21/18 08:40 02/21/18 14:05 Current Medications Acetaminophen (Tylenol -) 650 mg PO Q6H PRN PRN Reason: FEVER Last Admin: 02/20/18 20:11 Dose: 650 mg Aspirin (Asa -) 81 mg PO DAILY [facility] Last Admin: 02/22/18 10:02 Dose: 81 mg Atorvastatin Calcium (Lipitor -) 40 mg PO HS [facility] Last Admin: 02/21/18 21:34 Dose: 40 mg Cinacalcet (Sensipar -) 60 mg PO DAILY [facility] Last Admin: 02/22/18 10:02 Dose: 60 mg Clonidine (Catapres -) 0.1 mg PO BID [facility] Last Admin: 02/22/18 10:02 Dose: 0.1 mg Collagenase (Santyl -) 1 applic TP DAILY [facility] Last Admin: 02/22/18 10:02 Dose: 1 applic Heparin Sodium (Porcine) (Heparin -) 5,000 unit SQ BID [facility] Last Admin: 02/22/18 10:02 Dose: 5,000 unit Ceftazidime/Avibactam 1.25 gm/ (Dextrose) 250 mls @ 125 mls/hr IVPB Q8H-IV [facility] PRN Reason: Protocol Insulin Aspart (Novolog Mix 70/30 Vial) 40 units SQ BIDAC [facility] Last Admin: 02/22/18 06:24 Dose: Not Given Insulin Aspart (Novolog Vial Sliding Scale -) 1 vial SQ ACHS [facility] PRN Reason: Protocol Last Admin: 02/22/18 11:50 Dose: 2 units Lactic Acid (Lac-Hydrin 12) 1 applic TP BID PRN PRN Reason: WOUND CARE Last Admin: 02/20/18 10:03 Dose: 1 applic Metoprolol Tartrate (Lopressor -) 25 mg PO BID [facility] Last Admin: 02/22/18 10:02 Dose: 25 mg Ondansetron HCl (Zofran Injection) 4 mg IVPUSH Q6H PRN PRN Reason: NAUSEA AND/OR VOMITING Last Admin: 02/20/18 20:12 Dose: 4 mg Pantoprazole Sodium (Protonix -) 40 mg PO DAILY [facility] Last Admin: 02/22/18 10:02 Dose: 40 mg 62 year old gentleman with PMhx of PMhx of ESRD on Hd (MWF), Hypertension, DM on insulin, ESBL osteomyelitis, PVD presented with fever and Le blister/lesion and admitted for wound infection. #ESRD on HD #LE wound infection r/o osteomylitis #DM #Hypertension #Anemia (CKD related) No acute indication for dialysis today Next dialysis in the morning continue wound care as per Podiatry Abx as per ID f/u wound cultures pain control Meet Pedro DO
[2018-02-22] MEDS: AVIBACTAM IVPB SCH ×2 (17:04→19:30)
[2018-02-22] MEDS: WATER IVPB SCH ×2 (17:04→19:30)
[2018-02-22] MEDS: CEFTAZIDIME IVPB SCH ×2 (17:04→19:30)
[2018-02-22] MEDS: DEXTROSE 5% IVPB SCH ×2 (17:04→19:30)
[2018-02-22] MEDS ORDERED: DEXTROSE 5% IVPB SCH (18:00)
[2018-02-22] MEDS ORDERED: AVIBACTAM IVPB SCH (18:00)
[2018-02-22] MEDS ORDERED: CEFTAZIDIME IVPB SCH (18:00)
[2018-02-22] MEDS ORDERED: WATER IVPB SCH (18:00)
[2018-02-22] MEDS: ATORVASTATIN CA 40 MG TABLET (FP) PO SCH (21:42)
--- NOTE | 2018-02-22 23:48 | PN ---
Progress Note, Physician History of Present Illness: No new complaints - Current Medication List Current Medications: Active Medications Acetaminophen (Tylenol -) 650 mg PO Q6H PRN PRN Reason: FEVER Last Admin: 02/20/18 20:11 Dose: 650 mg Aspirin (Asa -) 81 mg PO DAILY [facility] Last Admin: 02/22/18 10:02 Dose: 81 mg Atorvastatin Calcium (Lipitor -) 40 mg PO HS [facility] Last Admin: 02/22/18 21:42 Dose: 40 mg Cinacalcet (Sensipar -) 60 mg PO DAILY [facility] Last Admin: 02/22/18 10:02 Dose: 60 mg Clonidine (Catapres -) 0.1 mg PO BID [facility] Last Admin: 02/22/18 21:42 Dose: 0.1 mg Collagenase (Santyl -) 1 applic TP DAILY [facility] Last Admin: 02/22/18 10:02 Dose: 1 applic Epoetin Lenny (Epogen -) 14,000 unit IVPUSH ONCE ONE Stop: 02/23/18 06:01 Heparin Sodium (Porcine) (Heparin -) 5,000 unit SQ BID [facility] Last Admin: 02/22/18 21:43 Dose: 5,000 unit Heparin Sodium (Porcine) (Heparin -) 1,000 unit IVPUSH ONCE ONE Stop: 02/23/18 06:01 Ceftazidime/Avibactam 1.25 gm/ (Dextrose) 250 mls @ 125 mls/hr IVPB Q8H-IV [facility] PRN Reason: Protocol Last Admin: 02/22/18 19:30 Dose: Not Given Sodium Chloride (Normal Saline -) 250 mls @ 3,000 mls/hr IV PRN PRN PRN Reason: Hypotension during Dialysis Stop: 02/23/18 16:47 Insulin Aspart (Novolog Mix 70/30 Vial) 40 units SQ BIDAC [facility] Last Admin: 02/22/18 17:04 Dose: 40 unit Insulin Aspart (Novolog Vial Sliding Scale -) 1 vial SQ ACHS [facility] PRN Reason: Protocol Last Admin: 02/22/18 21:43 Dose: Not Given Lactic Acid (Lac-Hydrin 12) 1 applic TP BID PRN PRN Reason: WOUND CARE Last Admin: 02/20/18 10:03 Dose: 1 applic Metoprolol Tartrate (Lopressor -) 25 mg PO BID [facility] Last Admin: 02/22/18 21:42 Dose: 25 mg Ondansetron HCl (Zofran Injection) 4 mg IVPUSH Q6H PRN PRN Reason: NAUSEA AND/OR VOMITING Last Admin: 02/20/18 20:12 Dose: 4 mg Pantoprazole Sodium (Protonix -) 40 mg PO DAILY [facility] Last Admin: 02/22/18 10:02 Dose: 40 mg - Objective Vital Signs: Vital Signs Temperature 97.9 F 02/22/18 21:44 Pulse Rate 66 02/22/18 21:44 Respiratory Rate 16 02/22/18 21:44 Blood Pressure 135/67 02/22/18 21:44 O2 Sat by Pulse Oximetry (%) 94 L 02/22/18 10:00 Constitutional: Yes: Well Nourished Neck: Yes: WNL, Supple Cardiovascular: Yes: WNL, Regular Rate and Rhythm Respiratory: Yes: Other (IV access rt ant chest wall) Labs: CBC, BMP 02/21/18 08:40 02/21/18 14:05 INR, PTT INR 1.29 (0.82-1.09) H 02/19/18 14:43 Problem List - Problems (1) Sepsis Assessment/Plan: Cont IV antibxs Follow cultures As per ID Code(s): A41.9 - SEPSIS, UNSPECIFIED ORGANISM Qualifiers: Sepsis type: sepsis due to unspecified organism Qualified Code(s): A41.9 - Sepsis, unspecified organism (2) Diabetes Assessment/Plan: Cont sliding scale w/ coverage Cont novolog 70/30 Code(s): E11.9 - TYPE 2 DIABETES MELLITUS WITHOUT COMPLICATIONS Qualifiers: Diabetes mellitus shelter insulin use: unspecified shelter insulin use status Diabetes mellitus complication status: with circulatory complication (3) ESRD (end stage renal disease) Assessment/Plan: Dialysis as per renal Code(s): N18.6 - END STAGE RENAL DISEASE (4) HTN (hypertension) Assessment/Plan: Cont metoprolol/catapress Code(s): I10 - ESSENTIAL (PRIMARY) HYPERTENSION (5) HLD (hyperlipidemia) Assessment/Plan: Cont lipitor Code(s): E78.5 - HYPERLIPIDEMIA, UNSPECIFIED
--- NOTE | 2018-02-22 23:49 | PN ---
Progress Note (short form) - Note Progress Note: Patient seen in bed earlier today. VSS. Tmax 97.9 +dressing intact, awaiting mri of foot, wound is mixed infection, wbc=9.8, esr= 108, crp=13.2 diabetic wound right Santyl dressing changes daily. awaiting mri. will follow. ivabx as per id.
[2018-02-23] MEDS: AVIBACTAM IVPB SCH ×2 (01:59→10:38)
[2018-02-23] MEDS: CEFTAZIDIME IVPB SCH ×2 (01:59→10:38)
[2018-02-23] MEDS: DEXTROSE 5% IVPB SCH ×2 (01:59→10:38)
[2018-02-23] MEDS: WATER IVPB SCH ×2 (01:59→10:38)
[2018-02-23] MEDS ORDERED: PT OWN MED DRAWER 7, Y5N ONE ×2 (02:11→21:38)
[2018-02-23] MEDS ORDERED: EPOETIN ALFA 2,000 UNIT/1 ML VIAL IVPUSH ONE (06:00)
[2018-02-23] MEDS: INSULIN (NOVOLOG MIX 70/30) 100 UNITS/ML MDV SQ SCH ×3 (06:39→18:29)
[2018-02-23] MEDS: INSULIN SLIDING SCALE (NOVOLOG) 1 VIAL SQ SCH ×4 (06:40→21:52)
[2018-02-23] MEDS ORDERED: INSULIN (LEVEMIR) 100 UNITS/ML UNITS SQ ONE (06:56)
[2018-02-23] MEDS ORDERED: INSULIN (NOVOLOG MIX 70/30) 100 UNITS/ML MDV SQ ONE ×2 (06:56→17:03)
[2018-02-23] MEDS ORDERED: INSULIN (NOVOLOG) ASPART 100 UNITS/ML 10ML VIAL ONE ×2 (06:56→17:21)
[2018-02-23 08:05] LABS: CHOLESTEROL 89 mg/dL (50-200); TRIGLYCERIDES 192 mg/dL (35-160)
[2018-02-23 08:06] LABS: HDL CHOLESTEROL 15 mg/dL (40-60)
--- NOTE | 2018-02-23 08:27 | PN ---
Progress Note, Physician Chief Complaint: no distress History of Present Illness: TELE: NSR, APC. No sustained arrhythmias. - Current Medication List Current Medications: Active Medications Acetaminophen (Tylenol -) 650 mg PO Q6H PRN PRN Reason: FEVER Last Admin: 02/20/18 20:11 Dose: 650 mg Aspirin (Asa -) 81 mg PO DAILY [facility] Last Admin: 02/22/18 10:02 Dose: 81 mg Atorvastatin Calcium (Lipitor -) 40 mg PO HS [facility] Last Admin: 02/22/18 21:42 Dose: 40 mg Cinacalcet (Sensipar -) 60 mg PO DAILY [facility] Last Admin: 02/22/18 10:02 Dose: 60 mg Clonidine (Catapres -) 0.1 mg PO BID [facility] Last Admin: 02/22/18 21:42 Dose: 0.1 mg Collagenase (Santyl -) 1 applic TP DAILY [facility] Last Admin: 02/22/18 10:02 Dose: 1 applic Epoetin Lenny (Epogen -) 14,000 unit IVPUSH ONCE ONE Stop: 02/23/18 06:01 Heparin Sodium (Porcine) (Heparin -) 5,000 unit SQ BID [facility] Last Admin: 02/22/18 21:43 Dose: 5,000 unit Heparin Sodium (Porcine) (Heparin -) 1,000 unit IVPUSH ONCE ONE Stop: 02/23/18 06:01 Ceftazidime/Avibactam 1.25 gm/ (Dextrose) 250 mls @ 125 mls/hr IVPB Q8H-IV MARK PRN Reason: Protocol Last Admin: 02/23/18 01:59 Dose: 125 mls/hr Sodium Chloride (Normal Saline -) 250 mls @ 3,000 mls/hr IV PRN PRN PRN Reason: Hypotension during Dialysis Stop: 02/23/18 16:47 Insulin Aspart (Novolog Mix 70/30 Vial) 40 units SQ BIDAC [facility] Last Admin: 02/23/18 06:39 Dose: 40 unit Insulin Aspart (Novolog Vial Sliding Scale -) 1 vial SQ ACHS [facility] PRN Reason: Protocol Last Admin: 02/23/18 06:40 Dose: Not Given Lactic Acid (Lac-Hydrin 12) 1 applic TP BID PRN PRN Reason: WOUND CARE Last Admin: 02/20/18 10:03 Dose: 1 applic Metoprolol Tartrate (Lopressor -) 25 mg PO BID [facility] Last Admin: 02/22/18 21:42 Dose: 25 mg Ondansetron HCl (Zofran Injection) 4 mg IVPUSH Q6H PRN PRN Reason: NAUSEA AND/OR VOMITING Last Admin: 02/20/18 20:12 Dose: 4 mg Pantoprazole Sodium (Protonix -) 40 mg PO DAILY [facility] Last Admin: 02/22/18 10:02 Dose: 40 mg - Objective Vital Signs: Vital Signs Temperature 97.6 F 02/23/18 06:00 Pulse Rate 63 02/23/18 06:00 Respiratory Rate 20 02/23/18 06:00 Blood Pressure 132/67 02/23/18 06:00 O2 Sat by Pulse Oximetry (%) 94 L 02/22/18 21:00 Constitutional: Yes: No Distress, Calm Cardiovascular: Yes: Regular Rate and Rhythm Respiratory: Yes: CTA Bilaterally Gastrointestinal: Yes: Soft, Abdomen, Obese Edema: Yes Edema: LLE: 1+, RLE: 1+ Neurological: Yes: Alert, Oriented ...Motor Strength: WNL Labs: CBC, BMP 02/21/18 08:40 02/21/18 14:05 INR, PTT INR 1.29 (0.82-1.09) H 02/19/18 14:43 - ....Imaging EKG: Image Reviewed Problem List - Problems (1) NSVT (nonsustained ventricular tachycardia) Code(s): I47.2 - VENTRICULAR TACHYCARDIA (2) PSVT (paroxysmal supraventricular tachycardia) Code(s): I47.1 - SUPRAVENTRICULAR TACHYCARDIA (3) Elevated troponin I measurement Code(s): R74.8 - ABNORMAL LEVELS OF OTHER SERUM ENZYMES (4) Diabetes Code(s): E11.9 - TYPE 2 DIABETES MELLITUS WITHOUT COMPLICATIONS Qualifiers: Diabetes mellitus snf insulin use: unspecified termination clerk insulin use status Diabetes mellitus complication status: with circulatory complication (5) ESRD (end stage renal disease) Code(s): N18.6 - END STAGE RENAL DISEASE (6) Foot ulcer due to secondary DM Code(s): E13.621 - OTHER SPECIFIED DIABETES MELLITUS WITH FOOT ULCER; L97.509 - NON-PRESSURE CHRONIC ULCER OTH PRT UNSP FOOT W UNSP SEVERITY (7) Sepsis Code(s): A41.9 - SEPSIS, UNSPECIFIED ORGANISM Qualifiers: Sepsis type: sepsis due to unspecified organism Qualified Code(s): A41.9 - Sepsis, unspecified organism (8) Cellulitis Code(s): L03.90 - CELLULITIS, UNSPECIFIED Qualifiers: Site of cellulitis: extremity Site of cellulitis of extremity: toe Laterality: right Qualified Code(s): L03.031 - Cellulitis of right toe Assessment/Plan IMP: SIRS syndrome in setting of likely RLE foot infection, gram - bacteremia DM ESRD on HD NSVT PSVT Chronic HTN Elevated TnI, most probably due to SIRS/early sepsis/ESRD/chronic diastolic CHF- - not due to ACS REC: 1. Cultures, abx as per PMD and ID; MRI lower extremity pending. 2. Cont Metoprolol tartrate 25mg PO BID for control of PSVT, NSVT and concomitant HTN 3. Echo with mild reduction of LVEF, recent stress test without ischemia. 4. As PAT and PSVT are controlled, can d/c tele. 5. Continue ASA 81mg daily and check fasting lipids.
[2018-02-23] MEDS: ASPIRIN 81 MG CHEWABLE TABLETS PO SCH (10:29)
[2018-02-23] MEDS: PANTOPRAZOLE 40 MG TABLET (FP) PO SCH (10:29)
[2018-02-23] MEDS: cloNIDine HCL 0.1 MG TABLET PO SCH ×2 (10:29→21:51)
[2018-02-23] MEDS: METOPROLOL TARTRATE 25 MG TABLET (FP) PO SCH ×2 (10:29→21:51)
[2018-02-23] MEDS: HEPARIN NA (PORCINE) 5,000 UNITS/ML 1ML VIAL SQ SCH ×2 (10:30→21:51)
[2018-02-23] MEDS: COLLAGENASE CLOSTRIDIUM HIST. 30 GRAMS TUBE TP SCH (10:30)
[2018-02-23] MEDS: CINACALCET HCL 30 MG TAB (FP) PO SCH (10:31)
[2018-02-23] MEDS ORDERED: SODIUM CHLORIDE 250 ML IV PRN ×2 (11:00→14:54)
[2018-02-23] MEDS ORDERED: EPOETIN ALFA IVPUSH ONE (11:00)
[2018-02-23] MEDS ORDERED: HEPARIN NA (PORCINE) 5,000 UNITS/ML 1ML VIAL IVPUSH ONE (11:00)
--- NOTE | 2018-02-23 14:54 | PN ---
Progress Note (short form) - Note Progress Note: Renal follow up for ESRD on HD Pt seen and examined at the bedside awake and alert awaiting dialysis no sob, chest pain abd pain no pain in feet no fevers, chills Vital Signs Temperature 97.6 F 02/23/18 06:00 Pulse Rate 63 02/23/18 06:00 Respiratory Rate 20 02/23/18 06:00 Blood Pressure 132/67 02/23/18 06:00 O2 Sat by Pulse Oximetry (%) 94 L 02/22/18 21:00 Intake & Output 02/20/18 02/21/18 02/22/18 02/23/18 23:59 23:59 23:59 23:59 Intake Total 1570 1360 1770 400 Balance 1570 1360 1770 400 Weight 130.09 kg 129.727 kg 132.449 kg NAD MMM, NO JVD CTA 1+ LE edema d/l feet in dressing CBC, BMP 02/21/18 08:40 02/21/18 14:05 Current Medications Acetaminophen (Tylenol -) 650 mg PO Q6H PRN PRN Reason: FEVER Last Admin: 02/20/18 20:11 Dose: 650 mg Aspirin (Asa -) 81 mg PO DAILY [facility] Last Admin: 02/23/18 10:29 Dose: 81 mg Atorvastatin Calcium (Lipitor -) 40 mg PO HS [facility] Last Admin: 02/22/18 21:42 Dose: 40 mg Cinacalcet (Sensipar -) 60 mg PO DAILY [facility] Last Admin: 02/23/18 10:31 Dose: 60 mg Clonidine (Catapres -) 0.1 mg PO BID [facility] Last Admin: 02/23/18 10:29 Dose: 0.1 mg Collagenase (Santyl -) 1 applic TP DAILY [facility] Last Admin: 02/23/18 10:30 Dose: 1 applic Heparin Sodium (Porcine) (Heparin -) 5,000 unit SQ BID [facility] Last Admin: 02/23/18 10:30 Dose: 5,000 unit Ceftazidime/Avibactam 1.25 gm/ (Dextrose) 250 mls @ 125 mls/hr IVPB Q8H-IV MARK PRN Reason: Protocol Last Admin: 02/23/18 10:38 Dose: 125 mls/hr Insulin Aspart (Novolog Mix 70/30 Vial) 40 units SQ BIDAC [facility] Last Admin: 02/23/18 06:39 Dose: 40 unit Insulin Aspart (Novolog Vial Sliding Scale -) 1 vial SQ ACHS [facility] PRN Reason: Protocol Last Admin: 02/23/18 12:38 Dose: Not Given Lactic Acid (Lac-Hydrin 12) 1 applic TP BID PRN PRN Reason: WOUND CARE Last Admin: 02/20/18 10:03 Dose: 1 applic Metoprolol Tartrate (Lopressor -) 25 mg PO BID [facility] Last Admin: 02/23/18 10:29 Dose: 25 mg Ondansetron HCl (Zofran Injection) 4 mg IVPUSH Q6H PRN PRN Reason: NAUSEA AND/OR VOMITING Last Admin: 02/20/18 20:12 Dose: 4 mg Pantoprazole Sodium (Protonix -) 40 mg PO DAILY [facility] Last Admin: 02/23/18 10:29 Dose: 40 mg 62 year old gentleman with PMhx of PMhx of ESRD on Hd (MWF), Hypertension, DM on insulin, ESBL osteomyelitis, PVD presented with fever and Le blister/lesion and admitted for wound infection. #ESRD on HD #LE wound infection r/o osteomylitis #Gram negative bacteremia #DM #Hypertension #Anemia (CKD related) For dialysis today with UF as tolerated On Ceftazidime/Avibactam as per ID, will need to be dose adjusted for ESRD repeat blood cultures today with dialysis Will continue LIZZIE with HD Podiatry and Vascular follow up Meet Pedro DO
--- NOTE | 2018-02-23 15:41 | PN ---
Progress Note, Physician History of Present Illness: patient improving now with wound cx of vre - Current Medication List Current Medications: Active Medications Acetaminophen (Tylenol -) 650 mg PO Q6H PRN PRN Reason: FEVER Last Admin: 02/20/18 20:11 Dose: 650 mg Aspirin (Asa -) 81 mg PO DAILY [facility] Last Admin: 02/23/18 10:29 Dose: 81 mg Atorvastatin Calcium (Lipitor -) 40 mg PO HS [facility] Last Admin: 02/22/18 21:42 Dose: 40 mg Cinacalcet (Sensipar -) 60 mg PO DAILY [facility] Last Admin: 02/23/18 10:31 Dose: 60 mg Clonidine (Catapres -) 0.1 mg PO BID [facility] Last Admin: 02/23/18 10:29 Dose: 0.1 mg Collagenase (Santyl -) 1 applic TP DAILY [facility] Last Admin: 02/23/18 10:30 Dose: 1 applic Heparin Sodium (Porcine) (Heparin -) 5,000 unit SQ BID [facility] Last Admin: 02/23/18 10:30 Dose: 5,000 unit Ceftazidime/Avibactam 1.25 gm/ (Dextrose) 250 mls @ 125 mls/hr IVPB Q8H-IV [facility] PRN Reason: Protocol Last Admin: 02/23/18 10:38 Dose: 125 mls/hr Sodium Chloride (Normal Saline -) 250 mls @ 3,000 mls/hr IV PRN PRN PRN Reason: Hypotension during Dialysis Stop: 02/24/18 14:54 Insulin Aspart (Novolog Mix 70/30 Vial) 40 units SQ BIDAC [facility] Last Admin: 02/23/18 06:39 Dose: 40 unit Insulin Aspart (Novolog Vial Sliding Scale -) 1 vial SQ ACHS [facility] PRN Reason: Protocol Last Admin: 02/23/18 12:38 Dose: Not Given Lactic Acid (Lac-Hydrin 12) 1 applic TP BID PRN PRN Reason: WOUND CARE Last Admin: 02/20/18 10:03 Dose: 1 applic Metoprolol Tartrate (Lopressor -) 25 mg PO BID [facility] Last Admin: 02/23/18 10:29 Dose: 25 mg Ondansetron HCl (Zofran Injection) 4 mg IVPUSH Q6H PRN PRN Reason: NAUSEA AND/OR VOMITING Last Admin: 02/20/18 20:12 Dose: 4 mg Pantoprazole Sodium (Protonix -) 40 mg PO DAILY [facility] Last Admin: 02/23/18 10:29 Dose: 40 mg - Objective Vital Signs: Vital Signs Temperature 97.6 F 02/23/18 06:00 Pulse Rate 63 02/23/18 06:00 Respiratory Rate 20 02/23/18 06:00 Blood Pressure 132/67 02/23/18 06:00 O2 Sat by Pulse Oximetry (%) 94 L 02/22/18 21:00 Constitutional: Yes: No Distress, Calm, Obese Cardiovascular: Yes: Regular Rate and Rhythm Respiratory: Yes: Regular, CTA Bilaterally Gastrointestinal: Yes: Normal Bowel Sounds, Soft Musculoskeletal: Yes: WNL Extremities: Yes: Other Wound/Incision: Yes: Dressing Dry and Intact Neurological: Yes: Alert, Oriented Psychiatric: Yes: Alert, Oriented Labs: CBC, BMP 02/21/18 08:40 02/21/18 14:05 INR, PTT INR 1.29 (0.82-1.09) H 02/19/18 14:43 Assessment/Plan Problem List - Problems (1) Diabetes Code(s): E11.9 - TYPE 2 DIABETES MELLITUS WITHOUT COMPLICATIONS Qualifiers: Diabetes mellitus alf insulin use: 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 Diabetes mellitus complication status: with circulatory complication (2) ESRD (end stage renal disease) Code(s): N18.6 - END STAGE RENAL DISEASE (3) Foot ulcer due to secondary DM Code(s): E13.621 - OTHER SPECIFIED DIABETES MELLITUS WITH FOOT ULCER; L97.509 - NON-PRESSURE CHRONIC ULCER OTH PRT UNSP FOOT W UNSP SEVERITY (4) HTN (hypertension) Code(s): I10 - ESSENTIAL (PRIMARY) HYPERTENSION (5) Cellulitis Code(s): L03.90 - CELLULITIS, UNSPECIFIED Qualifiers: Site of cellulitis: extremity Site of cellulitis of extremity: toe Laterality: right Qualified Code(s): L03.031 - Cellulitis of right toe (6) HLD (hyperlipidemia) Code(s): E78.5 - HYPERLIPIDEMIA, UNSPECIFIED (7) Toe infection Code(s): L08.9 - LOCAL INFECTION OF THE SKIN AND SUBCUTANEOUS TISSUE, UNSP cre resistant kliebsella 9 vre wound infection Assessment/Plan 62 y.o. male with PMH of IDDM, ESRD on HD, HTN, diverticulosis, GERD, CHF, and Rt foot 4th/5th toe transmetarsal amp site nonhealing wound/OM with highly resistant organisms (ESBL klebsiella, VRE) presenting with fever, leukocytosis recently discharged on Tygacil, Rt foot edema. patients cx report noted patient growing CRE kliebsella plan continue current abx will add zyox wound care final plan awaited
[2018-02-23 16:59] LABS: HEMATOCRIT 26.7 % (35.4-49); HEMOGLOBIN 9.1 GM/dL (11.7-16.9); MCH 29.2 pg (25.7-33.7); MCHC 34.2 g/dl (32.0-35.9); MEAN CELL VOLUME 85.5 fl (80-96); MEAN PLT VOLUME 10.2 fl (7.5-11.1); PLATELET COUNT 165 K/MM3 (134-434); RBC 3.12 M/mm3 (4.00-5.60); RDW 15.4 % (11.9-15.9); WHITE BLOOD COUNT 7.5 K/mm3 (4.0-10.0)
[2018-02-23 17:23] LABS: ANION GAP 11 (8-16); BLOOD UREA NITROGEN 67 mg/dL (7-18); CHLORIDE 94 mmol/L (98-107); CO2 26 mmol/L (21-32); GLUCOSE,RANDOM 135 mg/dL (74-106); PHOSPHOROUS 6.7 mg/dL (2.5-4.9); POTASSIUM 5.2 mmol/L (3.5-5.1); SODIUM 131 mmol/L (136-145)
--- NOTE | 2018-02-23 17:31 | PN ---
Progress Note (short form) - Note Progress Note: Vascular Surgery Pt seen and examined. Right foot ulcer on lateral aspect with bone exposed. Just came back from MRI. Pt has palpable DP and PT Will do angiogram on Wednesday to see if there is any disease in the foot that can be opened. Please optimize Lui holbrook DO
--- NOTE | 2018-02-23 17:33 | PN ---
Progress Note (short form) - Note Progress Note: VAscular Surgery Pt having HD today. Will do angiogram rosanne afternoon of right lower ext NPO past midnight. Lui Keller DO
[2018-02-23 17:37] LABS: CREATININE 9.4 mg/dL (0.7-1.3)
--- NOTE | 2018-02-23 21:08 | PN ---
Progress Note (short form) - Note Progress Note: Patient seen in bed earlier today. VSS. Tmax 97.9 +granulation and necrosis, awaiting mri report of foot, wound is mixed infection , wbc=7.5 diabetic wound right pvd om Santyl dressing changes daily. awaiting mri report will follow. ivabx as per id. angio by vascular tomorrow.
[2018-02-23] MEDS: ATORVASTATIN CA 40 MG TABLET (FP) PO SCH (21:51)
[2018-02-23] MEDS: LINEZOLID 600 MG TABLET (RESTRICTED TO ID) PO SCH (21:52)
--- NOTE | 2018-02-23 22:22 | PN ---
Progress Note, Physician History of Present Illness: No new complaints - Current Medication List Current Medications: Active Medications Acetaminophen (Tylenol -) 650 mg PO Q6H PRN PRN Reason: FEVER Last Admin: 02/20/18 20:11 Dose: 650 mg Aspirin (Asa -) 81 mg PO DAILY [facility] Last Admin: 02/23/18 10:29 Dose: 81 mg Atorvastatin Calcium (Lipitor -) 40 mg PO HS [facility] Last Admin: 02/23/18 21:51 Dose: 40 mg Cinacalcet (Sensipar -) 60 mg PO DAILY [facility] Last Admin: 02/23/18 10:31 Dose: 60 mg Clonidine (Catapres -) 0.1 mg PO BID [facility] Last Admin: 02/23/18 21:51 Dose: 0.1 mg Collagenase (Santyl -) 1 applic TP DAILY [facility] Last Admin: 02/23/18 10:30 Dose: 1 applic Heparin Sodium (Porcine) (Heparin -) 5,000 unit SQ BID [facility] Last Admin: 02/23/18 21:51 Dose: 5,000 unit Ceftazidime/Avibactam 1.25 gm/ (Dextrose) 250 mls @ 125 mls/hr IVPB Q8H-IV [facility] PRN Reason: Protocol Last Admin: 02/23/18 10:38 Dose: 125 mls/hr Sodium Chloride (Normal Saline -) 250 mls @ 3,000 mls/hr IV PRN PRN PRN Reason: Hypotension during Dialysis Stop: 02/24/18 14:54 Insulin Aspart (Novolog Vial Sliding Scale -) 1 vial SQ ACHS [facility] PRN Reason: Protocol Last Admin: 02/23/18 21:52 Dose: Not Given Insulin Aspart (Novolog Mix 70/30 Vial) 20 units SQ BIDAC [facility] Last Admin: 02/23/18 18:29 Dose: 20 units Lactic Acid (Lac-Hydrin 12) 1 applic TP BID PRN PRN Reason: WOUND CARE Last Admin: 02/20/18 10:03 Dose: 1 applic Linezolid (Zyvox (Restricted To Id) -) 600 mg PO BID [facility] Last Admin: 02/23/18 21:52 Dose: 600 mg Metoprolol Tartrate (Lopressor -) 25 mg PO BID [facility] Last Admin: 02/23/18 21:51 Dose: 25 mg Ondansetron HCl (Zofran Injection) 4 mg IVPUSH Q6H PRN PRN Reason: NAUSEA AND/OR VOMITING Last Admin: 02/20/18 20:12 Dose: 4 mg Pantoprazole Sodium (Protonix -) 40 mg PO DAILY [facility] Last Admin: 02/23/18 10:29 Dose: 40 mg - Objective Vital Signs: Vital Signs Temperature 97.3 F L 02/23/18 21:31 Pulse Rate 70 02/23/18 21:31 Respiratory Rate 16 02/23/18 21:31 Blood Pressure 121/71 02/23/18 21:31 O2 Sat by Pulse Oximetry (%) 94 L 02/23/18 09:00 HENT: Yes: WNL Neck: Yes: WNL, Supple Cardiovascular: Yes: WNL, Regular Rate and Rhythm Respiratory: Yes: WNL, Regular, CTA Bilaterally Gastrointestinal: Yes: WNL, Normal Bowel Sounds, Soft Labs: CBC, BMP 02/23/18 16:15 02/23/18 16:15 INR, PTT INR 1.29 (0.82-1.09) H 02/19/18 14:43 Problem List - Problems (1) Sepsis Code(s): A41.9 - SEPSIS, UNSPECIFIED ORGANISM Qualifiers: Sepsis type: sepsis due to unspecified organism Qualified Code(s): A41.9 - Sepsis, unspecified organism (2) Diabetes Code(s): E11.9 - TYPE 2 DIABETES MELLITUS WITHOUT COMPLICATIONS Qualifiers: Diabetes mellitus clinical courier insulin use: unspecified group home insulin use status Diabetes mellitus complication status: with circulatory complication (3) ESRD (end stage renal disease) Code(s): N18.6 - END STAGE RENAL DISEASE (4) HTN (hypertension) Code(s): I10 - ESSENTIAL (PRIMARY) HYPERTENSION (5) HLD (hyperlipidemia) Code(s): E78.5 - HYPERLIPIDEMIA, UNSPECIFIED
[2018-02-24] MEDS: INSULIN (NOVOLOG MIX 70/30) 100 UNITS/ML MDV SQ SCH ×2 (06:28→16:30)
[2018-02-24] MEDS: INSULIN SLIDING SCALE (NOVOLOG) 1 VIAL SQ SCH ×4 (06:28→22:07)
--- NOTE | 2018-02-24 08:46 | PN ---
Progress Note, Physician Chief Complaint: Planned for LE angiography History of Present Illness: No CP or SOB - Current Medication List Current Medications: Active Medications Acetaminophen (Tylenol -) 650 mg PO Q6H PRN PRN Reason: FEVER Last Admin: 02/20/18 20:11 Dose: 650 mg Aspirin (Asa -) 81 mg PO DAILY [facility] Last Admin: 02/23/18 10:29 Dose: 81 mg Atorvastatin Calcium (Lipitor -) 40 mg PO HS [facility] Last Admin: 02/23/18 21:51 Dose: 40 mg Cinacalcet (Sensipar -) 60 mg PO DAILY [facility] Last Admin: 02/23/18 10:31 Dose: 60 mg Clonidine (Catapres -) 0.1 mg PO BID [facility] Last Admin: 02/23/18 21:51 Dose: 0.1 mg Collagenase (Santyl -) 1 applic TP DAILY [facility] Last Admin: 02/23/18 10:30 Dose: 1 applic Heparin Sodium (Porcine) (Heparin -) 5,000 unit SQ BID [facility] Last Admin: 02/23/18 21:51 Dose: 5,000 unit Ceftazidime/Avibactam 1.25 gm/ (Dextrose) 250 mls @ 125 mls/hr IVPB Q8H-IV [facility] PRN Reason: Protocol Last Admin: 02/23/18 10:38 Dose: 125 mls/hr Sodium Chloride (Normal Saline -) 250 mls @ 3,000 mls/hr IV PRN PRN PRN Reason: Hypotension during Dialysis Stop: 02/24/18 14:54 Insulin Aspart (Novolog Vial Sliding Scale -) 1 vial SQ ACHS [facility] PRN Reason: Protocol Last Admin: 02/24/18 06:28 Dose: Not Given Insulin Aspart (Novolog Mix 70/30 Vial) 20 units SQ BIDAC [facility] Last Admin: 02/24/18 06:28 Dose: Not Given Lactic Acid (Lac-Hydrin 12) 1 applic TP BID PRN PRN Reason: WOUND CARE Last Admin: 02/20/18 10:03 Dose: 1 applic Linezolid (Zyvox (Restricted To Id) -) 600 mg PO BID [facility] Last Admin: 02/23/18 21:52 Dose: 600 mg Metoprolol Tartrate (Lopressor -) 25 mg PO BID [facility] Last Admin: 02/23/18 21:51 Dose: 25 mg Ondansetron HCl (Zofran Injection) 4 mg IVPUSH Q6H PRN PRN Reason: NAUSEA AND/OR VOMITING Last Admin: 02/20/18 20:12 Dose: 4 mg Pantoprazole Sodium (Protonix -) 40 mg PO DAILY [facility] Last Admin: 02/23/18 10:29 Dose: 40 mg - Objective Vital Signs: Vital Signs Temperature 97.8 F 02/24/18 06:14 Pulse Rate 71 02/24/18 06:14 Respiratory Rate 16 02/24/18 06:14 Blood Pressure 125/60 02/24/18 06:14 O2 Sat by Pulse Oximetry (%) 94 L 02/23/18 21:00 Constitutional: Yes: No Distress, Calm Cardiovascular: Yes: Regular Rate and Rhythm Respiratory: Yes: CTA Bilaterally Gastrointestinal: Yes: Soft (NT) Edema: No Neurological: Yes: Alert, Oriented ...Motor Strength: WNL Labs: CBC, BMP 02/23/18 16:15 02/23/18 16:15 INR, PTT INR 1.29 (0.82-1.09) H 02/19/18 14:43 Problem List - Problems (1) NSVT (nonsustained ventricular tachycardia) Code(s): I47.2 - VENTRICULAR TACHYCARDIA (2) PSVT (paroxysmal supraventricular tachycardia) Code(s): I47.1 - SUPRAVENTRICULAR TACHYCARDIA (3) Elevated troponin I measurement Code(s): R74.8 - ABNORMAL LEVELS OF OTHER SERUM ENZYMES (4) Diabetes Code(s): E11.9 - TYPE 2 DIABETES MELLITUS WITHOUT COMPLICATIONS Qualifiers: Diabetes 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 Diabetes mellitus complication status: with circulatory complication (5) ESRD (end stage renal disease) Code(s): N18.6 - END STAGE RENAL DISEASE (6) Foot ulcer due to secondary DM Code(s): E13.621 - OTHER SPECIFIED DIABETES MELLITUS WITH FOOT ULCER; L97.509 - NON-PRESSURE CHRONIC ULCER OTH PRT UNSP FOOT W UNSP SEVERITY (7) Sepsis Code(s): A41.9 - SEPSIS, UNSPECIFIED ORGANISM Qualifiers: Sepsis type: sepsis due to unspecified organism Qualified Code(s): A41.9 - Sepsis, unspecified organism (8) Cellulitis Code(s): L03.90 - CELLULITIS, UNSPECIFIED Qualifiers: Site of cellulitis: extremity Site of cellulitis of extremity: toe Laterality: right Qualified Code(s): L03.031 - Cellulitis of right toe Assessment/Plan IMP: SIRS syndrome in setting of likely RLE foot infection, gram - bacteremia DM ESRD on HD NSVT PSVT Chronic HTN Elevated TnI, most probably due to SIRS/early sepsis/ESRD/chronic diastolic CHF- - not due to ACS REC: 1. Cultures, abx as per PMD and ID; MRI lower extremity pending. 2. Cont Metoprolol tartrate 25mg PO BID for control of PSVT, NSVT and concomitant HTN 3. Echo with mild reduction of LVEF, recent stress test without ischemia. 4. As PAT and PSVT are controlled, tele discontinued. 5. Continue ASA 81mg daily and check fasting lipids. 6. No absolute cardiac contraindications to LE angiography.
[2018-02-24] MEDS: PANTOPRAZOLE 40 MG TABLET (FP) PO SCH (09:41)
[2018-02-24] MEDS: cloNIDine HCL 0.1 MG TABLET PO SCH ×2 (09:41→21:54)
[2018-02-24] MEDS: METOPROLOL TARTRATE 25 MG TABLET (FP) PO SCH ×2 (09:41→21:57)
[2018-02-24] MEDS ORDERED: PT OWN MED DRAWER 7, Y5N ONE ×3 (09:59→21:52)
[2018-02-24] MEDS: CINACALCET HCL 30 MG TAB (FP) PO SCH (10:24)
[2018-02-24] MEDS: LINEZOLID 600 MG TABLET (RESTRICTED TO ID) PO SCH ×2 (10:24→21:55)
[2018-02-24] MEDS: COLLAGENASE CLOSTRIDIUM HIST. 30 GRAMS TUBE TP SCH (10:25)
[2018-02-24] MEDS: ASPIRIN 81 MG CHEWABLE TABLETS PO SCH (11:37)
[2018-02-24] MEDS: HEPARIN NA (PORCINE) 5,000 UNITS/ML 1ML VIAL SQ SCH ×2 (11:38→21:54)
--- NOTE | 2018-02-24 15:33 | PN ---
Progress Note, Physician History of Present Illness: stable no new issues - Current Medication List Current Medications: Active Medications Acetaminophen (Tylenol -) 650 mg PO Q6H PRN PRN Reason: FEVER Last Admin: 02/20/18 20:11 Dose: 650 mg Aspirin (Asa -) 81 mg PO DAILY [facility] Last Admin: 02/24/18 11:37 Dose: Not Given Atorvastatin Calcium (Lipitor -) 40 mg PO HS [facility] Last Admin: 02/23/18 21:51 Dose: 40 mg Cinacalcet (Sensipar -) 60 mg PO DAILY [facility] Last Admin: 02/24/18 10:24 Dose: 60 mg Clonidine (Catapres -) 0.1 mg PO BID [facility] Last Admin: 02/24/18 09:41 Dose: 0.1 mg Collagenase (Santyl -) 1 applic TP DAILY [facility] Last Admin: 02/24/18 10:25 Dose: 1 applic Heparin Sodium (Porcine) (Heparin -) 5,000 unit SQ BID [facility] Last Admin: 02/24/18 11:38 Dose: Not Given Sodium Chloride (Normal Saline -) 250 mls @ 3,000 mls/hr IV PRN PRN PRN Reason: Hypotension during Dialysis Stop: 02/24/18 14:54 Ceftazidime/Avibactam 0.94 gm/ (Dextrose) 100 mls @ 50 mls/hr IVPB MoWeFr@1200 [facility] Insulin Aspart (Novolog Vial Sliding Scale -) 1 vial SQ ACHS [facility] PRN Reason: Protocol Last Admin: 02/24/18 11:43 Dose: Not Given Insulin Aspart (Novolog Mix 70/30 Vial) 20 units SQ BIDAC [facility] Last Admin: 02/24/18 06:28 Dose: Not Given Lactic Acid (Lac-Hydrin 12) 1 applic TP BID PRN PRN Reason: WOUND CARE Last Admin: 02/20/18 10:03 Dose: 1 applic Linezolid (Zyvox (Restricted To Id) -) 600 mg PO BID [facility] Last Admin: 02/24/18 10:24 Dose: 600 mg Metoprolol Tartrate (Lopressor -) 25 mg PO BID [facility] Last Admin: 02/24/18 09:41 Dose: 25 mg Ondansetron HCl (Zofran Injection) 4 mg IVPUSH Q6H PRN PRN Reason: NAUSEA AND/OR VOMITING Last Admin: 02/20/18 20:12 Dose: 4 mg Pantoprazole Sodium (Protonix -) 40 mg PO DAILY [facility] Last Admin: 02/24/18 09:41 Dose: 40 mg - Objective Vital Signs: Vital Signs Temperature 97.9 F 02/24/18 15:21 Pulse Rate 109 H 02/24/18 15:21 Respiratory Rate 18 02/24/18 15:21 Blood Pressure 154/93 02/24/18 15:21 O2 Sat by Pulse Oximetry (%) 94 L 02/24/18 09:00 Constitutional: Yes: No Distress, Calm, Obese Cardiovascular: Yes: Regular Rate and Rhythm Respiratory: Yes: Regular, CTA Bilaterally Gastrointestinal: Yes: Normal Bowel Sounds, Soft Musculoskeletal: Yes: Other Extremities: Yes: Other Wound/Incision: Yes: Dressing Dry and Intact Neurological: Yes: Alert, Oriented Psychiatric: Yes: Alert, Oriented Labs: CBC, BMP 02/23/18 16:15 02/23/18 16:15 INR, PTT INR 1.29 (0.82-1.09) H 02/19/18 14:43 Assessment/Plan Problem List - Problems (1) Diabetes Code(s): E11.9 - TYPE 2 DIABETES MELLITUS WITHOUT COMPLICATIONS Qualifiers: Diabetes 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 Diabetes mellitus complication status: with circulatory complication (2) ESRD (end stage renal disease) Code(s): N18.6 - END STAGE RENAL DISEASE (3) Foot ulcer due to secondary DM Code(s): E13.621 - OTHER SPECIFIED DIABETES MELLITUS WITH FOOT ULCER; L97.509 - NON-PRESSURE CHRONIC ULCER OTH PRT UNSP FOOT W UNSP SEVERITY (4) HTN (hypertension) Code(s): I10 - ESSENTIAL (PRIMARY) HYPERTENSION (5) Cellulitis Code(s): L03.90 - CELLULITIS, UNSPECIFIED Qualifiers: Site of cellulitis: extremity Site of cellulitis of extremity: toe Laterality: right Qualified Code(s): L03.031 - Cellulitis of right toe (6) HLD (hyperlipidemia) Code(s): E78.5 - HYPERLIPIDEMIA, UNSPECIFIED (7) Toe infection Code(s): L08.9 - LOCAL INFECTION OF THE SKIN AND SUBCUTANEOUS TISSUE, UNSP cre resistant kliebsella 9 vre wound infection Assessment/Plan 62 y.o. male with PMH of IDDM, ESRD on HD, HTN, diverticulosis, GERD, CHF, and Rt foot 4th/5th toe transmetarsal amp site nonhealing wound/OM with highly resistant organisms (ESBL klebsiella, VRE) presenting with fever, leukocytosis recently discharged on Tygacil, Rt foot edema. plan continue current abx await for final plan repeat blood cx tomorrow rest as per primary
[2018-02-24] MEDS ORDERED: SODIUM CHLORIDE 0.9% P/F 10 ML VIAL IJ ONE ×3 (16:46→17:57)
[2018-02-24] MEDS ORDERED: MIDAZOLAM HCL 2 MG/2 ML SINGLE DOSE VIAL ONE (16:52)
[2018-02-24] MEDS ORDERED: LIDOCAINE HCL 1%, 10 MG/ML (20ML VIAL) NR ONE ×2 (17:03)
[2018-02-24] MEDS ORDERED: HEPARIN NA (PORCINE) 5,000 UNITS/ML 1ML VIAL ONE (17:31)
[2018-02-24] MEDS ORDERED: PROTAMINE SULFATE 50 MG/5 ML VIAL ONE (17:56)
--- NOTE | 2018-02-24 18:25 | OP ---
Operative Note - Note: Operative Date: 02/24/18 Pre-Operative Diagnosis: Right foot gangrene Operation: Aortogram, RLE angiogram, Anterior tibial artery atherectomy with angioplasty. Findings: ant tibial artery occlusion, stenosis Post-Operative Diagnosis: Same as Pre-op Surgeon: Lui Keller Anesthesia: Fractional Estimated Blood Loss (mls): 50 Operative Report Dictated: Yes
[2018-02-24] MEDS ORDERED: SODIUM CHLORIDE 250 ML IV PRN (18:55)
[2018-02-24] MEDS: CLOPIDOGREL BISULFATE 75 MG TABLET (FP) PO SCH ×2 (19:00→20:28)
[2018-02-24] MEDS ORDERED: AMMONIUM LACTATE 12% LOTION 225 GM BOTTLE TP PRN (19:00)
[2018-02-24] MEDS ORDERED: ACETAMINOPHEN 325 MG TABLET (FP) PO PRN (19:00)
[2018-02-24] MEDS ORDERED: ONDANSETRON 4 MG/2 ML VIAL IVPUSH PRN (19:00)
[2018-02-24] MEDS ORDERED: EPOETIN ALFA 2,000 UNIT/1 ML VIAL IVPUSH ONE (19:00)
[2018-02-24] MEDS ORDERED: CLOPIDOGREL BISULFATE 75 MG TABLET (FP) ONE (19:04)
[2018-02-24] MEDS: ATORVASTATIN CA 40 MG TABLET (FP) PO SCH (21:54)
--- NOTE | 2018-02-24 23:07 | PN ---
Progress Note (short form) - Note Progress Note: Patient seen in bed earlier todayprior to procedure. VSS. Tmax 98.2 +granulation and necrosis, reviewed mri, wound is mixed infection, wbc=7.5 diabetic wound right pvd om Santyl dressing changes daily. will follow. ivabx as per id. angiogram done discussed with Dr. Keller.
--- NOTE | 2018-02-24 23:50 | PN ---
Progress Note, Physician History of Present Illness: No new complaints - Current Medication List Current Medications: Active Medications Acetaminophen (Tylenol -) 650 mg PO Q6H PRN PRN Reason: FEVER Aspirin (Asa -) 81 mg PO DAILY [facility] Atorvastatin Calcium (Lipitor -) 40 mg PO HS [facility] Last Admin: 02/24/18 21:54 Dose: 40 mg Cinacalcet (Sensipar -) 60 mg PO DAILY [facility] Clonidine (Catapres -) 0.1 mg PO BID [facility] Last Admin: 02/24/18 21:54 Dose: 0.1 mg Clopidogrel Bisulfate (Plavix -) 75 mg PO DAILY [facility] Last Admin: 02/24/18 20:28 Dose: Not Given Collagenase (Santyl -) 1 applic TP DAILY [facility] Epoetin Lenny (Epogen -) 14,000 unit IVPUSH ONCE ONE Stop: 02/25/18 06:01 Fentanyl (Sublimaze Injection -) 25 mcg IVPUSH [id number] PRN PRN Reason: PAIN-PACU ORDER X 4 DOSES ONLY Heparin Sodium (Porcine) (Heparin -) 1,000 unit IVPUSH ONCE ONE Stop: 02/25/18 06:01 Heparin Sodium (Porcine) (Heparin -) 5,000 unit SQ BID [facility] Last Admin: 02/24/18 21:54 Dose: 5,000 unit Sodium Chloride (Normal Saline -) 250 mls @ 3,000 mls/hr IV PRN PRN PRN Reason: Hypotension during Dialysis Ceftazidime/Avibactam 0.94 gm/ (Dextrose) 100 mls @ 50 mls/hr IVPB MoWeFr@1200 [facility] Insulin Aspart (Novolog Mix 70/30 Vial) 20 units SQ BIDAC [facility] Insulin Aspart (Novolog Vial Sliding Scale -) 1 vial SQ ACHS [facility] PRN Reason: Protocol Last Admin: 02/24/18 22:07 Dose: 2 units Lactic Acid (Lac-Hydrin 12) 1 applic TP BID PRN PRN Reason: WOUND CARE Linezolid (Zyvox (Restricted To Id) -) 600 mg PO BID [facility] Last Admin: 02/24/18 21:55 Dose: 600 mg Metoprolol Tartrate (Lopressor -) 25 mg PO BID [facility] Last Admin: 02/24/18 21:57 Dose: 25 mg Ondansetron HCl (Zofran Injection) 4 mg IVPUSH Q6H PRN PRN Reason: NAUSEA AND/OR VOMITING Pantoprazole Sodium (Protonix -) 40 mg PO DAILY [facility] - Objective Vital Signs: Vital Signs Temperature 97.6 F 02/24/18 21:00 Pulse Rate 70 02/24/18 21:00 Respiratory Rate 20 02/24/18 21:00 Blood Pressure 148/71 02/24/18 21:00 O2 Sat by Pulse Oximetry (%) 100 02/24/18 19:50 HENT: Yes: WNL Neck: Yes: WNL, Supple Cardiovascular: Yes: WNL, Regular Rate and Rhythm Respiratory: Yes: WNL, Regular, CTA Bilaterally Gastrointestinal: Yes: WNL, Normal Bowel Sounds, Soft Labs: CBC, BMP 02/23/18 16:15 02/23/18 16:15 INR, PTT INR 1.29 (0.82-1.09) H 02/19/18 14:43 Problem List - Problems (1) Sepsis Assessment/Plan: IV antibxs as per ID Follow cultures S/P RLE angiogram wc showed ant tibial artery occlusion/stenosis Code(s): A41.9 - SEPSIS, UNSPECIFIED ORGANISM Qualifiers: Sepsis type: sepsis due to unspecified organism Qualified Code(s): A41.9 - Sepsis, unspecified organism (2) Diabetes Assessment/Plan: Cont sliding scale w/ coverage Code(s): E11.9 - TYPE 2 DIABETES MELLITUS WITHOUT COMPLICATIONS Qualifiers: Diabetes 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
[2018-02-25] MEDS: INSULIN (NOVOLOG MIX 70/30) 100 UNITS/ML MDV SQ SCH ×2 (06:40→17:38)
[2018-02-25] MEDS: INSULIN SLIDING SCALE (NOVOLOG) 1 VIAL SQ SCH ×4 (06:40→22:33)
[2018-02-25] MEDS ORDERED: INSULIN (NOVOLOG) ASPART 100 UNITS/ML 10ML VIAL ONE (06:46)
[2018-02-25 07:41] LABS: HEMATOCRIT 26.6 % (35.4-49); HEMOGLOBIN 8.7 GM/dL (11.7-16.9); MCH 28.6 pg (25.7-33.7); MCHC 32.8 g/dl (32.0-35.9); MEAN PLT VOLUME 9.9 fl (7.5-11.1); PLATELET COUNT 181 K/MM3 (134-434); RBC 3.06 M/mm3 (4.00-5.60); RDW 15.3 % (11.9-15.9); WHITE BLOOD COUNT 9.4 K/mm3 (4.0-10.0)
[2018-02-25 08:08] LABS: ANION GAP 12 (8-16); BLOOD UREA NITROGEN 48 mg/dL (7-18); CALCIUM 7.1 mg/dL (8.5-10.1); CHLORIDE 96 mmol/L (98-107); CO2 30 mmol/L (21-32); GLUCOSE,RANDOM 149 mg/dL (74-106); POTASSIUM 5.3 mmol/L (3.5-5.1); SODIUM 138 mmol/L (136-145)
[2018-02-25 08:18] LABS: PHOSPHOROUS 5.6 mg/dL (2.5-4.9)
--- NOTE | 2018-02-25 08:33 | PN ---
Progress Note, Physician Chief Complaint: no complaints History of Present Illness: s/p PTCA R anterior tibial artery - Current Medication List Current Medications: Active Medications Acetaminophen (Tylenol -) 650 mg PO Q6H PRN PRN Reason: FEVER Aspirin (Asa -) 81 mg PO DAILY [facility] Atorvastatin Calcium (Lipitor -) 40 mg PO HS [facility] Last Admin: 02/24/18 21:54 Dose: 40 mg Cinacalcet (Sensipar -) 60 mg PO DAILY [facility] Clonidine (Catapres -) 0.1 mg PO BID [facility] Last Admin: 02/24/18 21:54 Dose: 0.1 mg Clopidogrel Bisulfate (Plavix -) 75 mg PO DAILY [facility] Last Admin: 02/24/18 20:28 Dose: Not Given Collagenase (Santyl -) 1 applic TP DAILY [facility] Epoetin Lenny (Epogen -) 14,000 unit IVPUSH ONCE ONE Stop: 02/25/18 06:01 Fentanyl (Sublimaze Injection -) 25 mcg IVPUSH [id number] PRN PRN Reason: PAIN-PACU ORDER X 4 DOSES ONLY Heparin Sodium (Porcine) (Heparin -) 1,000 unit IVPUSH ONCE ONE Stop: 02/25/18 06:01 Heparin Sodium (Porcine) (Heparin -) 5,000 unit SQ BID [facility] Last Admin: 02/24/18 21:54 Dose: 5,000 unit Sodium Chloride (Normal Saline -) 250 mls @ 3,000 mls/hr IV PRN PRN PRN Reason: Hypotension during Dialysis Ceftazidime/Avibactam 0.94 gm/ (Dextrose) 100 mls @ 50 mls/hr IVPB MoWeFr@1200 [facility] Insulin Aspart (Novolog Mix 70/30 Vial) 20 units SQ BIDAC [facility] Last Admin: 02/25/18 06:40 Dose: 20 units Insulin Aspart (Novolog Vial Sliding Scale -) 1 vial SQ ACHS [facility] PRN Reason: Protocol Last Admin: 02/25/18 06:40 Dose: 2 units Lactic Acid (Lac-Hydrin 12) 1 applic TP BID PRN PRN Reason: WOUND CARE Linezolid (Zyvox (Restricted To Id) -) 600 mg PO BID [facility] Last Admin: 02/24/18 21:55 Dose: 600 mg Metoprolol Tartrate (Lopressor -) 25 mg PO BID [facility] Last Admin: 02/24/18 21:57 Dose: 25 mg Ondansetron HCl (Zofran Injection) 4 mg IVPUSH Q6H PRN PRN Reason: NAUSEA AND/OR VOMITING Pantoprazole Sodium (Protonix -) 40 mg PO DAILY [facility] Sevelamer Carbonate (Renvela -) 2,400 mg PO TIDCM [facility] - Objective Vital Signs: Vital Signs Temperature 98.4 F 02/25/18 05:58 Pulse Rate 65 02/25/18 05:58 Respiratory Rate 18 02/25/18 05:58 Blood Pressure 124/59 02/25/18 05:58 O2 Sat by Pulse Oximetry (%) 96 02/24/18 21:00 Constitutional: Yes: No Distress, Calm Cardiovascular: Yes: Regular Rate and Rhythm Respiratory: Yes: CTA Bilaterally Gastrointestinal: Yes: Soft, Abdomen, Obese Edema: No Neurological: Yes: Alert, Oriented ...Motor Strength: WNL Labs: CBC, BMP 02/25/18 07:15 02/25/18 07:15 INR, PTT INR 1.29 (0.82-1.09) H 02/19/18 14:43 Microbiology Laboratory Tests 02/23/18 02/25/18 02/25/18 16:15 07:15 07:15 WBC 7.5 9.4 Hgb 9.1 L 8.7 L Plt Count 165 181 Sodium 138 Potassium 5.3 H BUN 48 H D Creatinine Pending Calcium 7.1 L Phosphorus 5.6 H Problem List - Problems (1) NSVT (nonsustained ventricular tachycardia) Code(s): I47.2 - VENTRICULAR TACHYCARDIA (2) PSVT (paroxysmal supraventricular tachycardia) Code(s): I47.1 - SUPRAVENTRICULAR TACHYCARDIA (3) Elevated troponin I measurement Code(s): R74.8 - ABNORMAL LEVELS OF OTHER SERUM ENZYMES (4) Diabetes Code(s): E11.9 - TYPE 2 DIABETES MELLITUS WITHOUT COMPLICATIONS Qualifiers: Diabetes mellitus extermination supervisor insulin use: unspecified skilled nursing insulin use status Diabetes mellitus complication status: with circulatory complication (5) ESRD (end stage renal disease) Code(s): N18.6 - END STAGE RENAL DISEASE (6) Foot ulcer due to secondary DM Code(s): E13.621 - OTHER SPECIFIED DIABETES MELLITUS WITH FOOT ULCER; L97.509 - NON-PRESSURE CHRONIC ULCER OTH PRT UNSP FOOT W UNSP SEVERITY (7) Sepsis Code(s): A41.9 - SEPSIS, UNSPECIFIED ORGANISM Qualifiers: Sepsis type: sepsis due to unspecified organism Qualified Code(s): A41.9 - Sepsis, unspecified organism (8) Cellulitis Code(s): L03.90 - CELLULITIS, UNSPECIFIED Qualifiers: Site of cellulitis: extremity Site of cellulitis of extremity: toe Laterality: right Qualified Code(s): L03.031 - Cellulitis of right toe Assessment/Plan IMP: SIRS syndrome in setting of likely RLE foot infection, gram - bacteremia, PAD s/ p RLE anterior tibial PTCA DM ESRD on HD NSVT PSVT Chronic HTN Elevated TnI, most probably due to SIRS/early sepsis/ESRD/chronic diastolic CHF- - not due to ACS REC: 1. Cultures, abx as per PMD and ID; MRI lower extremity pending. 2. Cont Metoprolol tartrate 25mg PO BID for control of PSVT, NSVT and concomitant HTN 3. Echo with mild reduction of LVEF, recent stress test without ischemia. 4. As PAT and PSVT are controlled, tele discontinued. 5. Continue ASA 81mg daily and check fasting lipids. 6. Cont ASA and Plavix
[2018-02-25] MEDS: SEVELAMER CARBONATE 800 MG TAB (FP) PO SCH ×3 (08:35→17:38)
[2018-02-25 09:05] LABS: CREATININE 8.1 mg/dL (0.7-1.3)
[2018-02-25] MEDS ORDERED: PT OWN MED DRAWER 7, Y5N ONE ×2 (09:28→22:35)
[2018-02-25] MEDS: LINEZOLID 600 MG TABLET (RESTRICTED TO ID) PO SCH ×2 (09:31→22:36)
[2018-02-25] MEDS: HEPARIN NA (PORCINE) 5,000 UNITS/ML 1ML VIAL SQ SCH ×2 (09:31→22:33)
[2018-02-25] MEDS: CINACALCET HCL 30 MG TAB (FP) PO SCH (09:31)
[2018-02-25] MEDS: PANTOPRAZOLE 40 MG TABLET (FP) PO SCH (09:32)
[2018-02-25] MEDS: COLLAGENASE CLOSTRIDIUM HIST. 30 GRAMS TUBE TP SCH (09:32)
[2018-02-25] MEDS: ASPIRIN 81 MG CHEWABLE TABLETS PO SCH (09:33)
[2018-02-25] MEDS: METOPROLOL TARTRATE 25 MG TABLET (FP) PO SCH ×2 (09:33→22:33)
[2018-02-25] MEDS: CLOPIDOGREL BISULFATE 75 MG TABLET (FP) PO SCH (09:33)
[2018-02-25] MEDS: cloNIDine HCL 0.1 MG TABLET PO SCH ×2 (09:33→22:33)
[2018-02-25] MEDS ORDERED: CEFTAZIDIME/AVIBACTAM 0.94 GM in DEXTROSE 5%-WATER - 100 ML IVPB SCH (12:00)
--- NOTE | 2018-02-25 14:18 | PN ---
Progress Note (short form) - Note Progress Note: Anesthesia postop note 62 y/o M, s/p MAC for angiogram angioplasty POD#1, vss, aaox3, no complaints No anesthesia complications.
--- NOTE | 2018-02-25 15:39 | PN ---
Progress Note, Physician History of Present Illness: stable doing well no complaints - Current Medication List Current Medications: Active Medications Acetaminophen (Tylenol -) 650 mg PO Q6H PRN PRN Reason: FEVER Aspirin (Asa -) 81 mg PO DAILY [facility] Last Admin: 02/25/18 09:33 Dose: 81 mg Atorvastatin Calcium (Lipitor -) 40 mg PO HS [facility] Last Admin: 02/24/18 21:54 Dose: 40 mg Cinacalcet (Sensipar -) 60 mg PO DAILY [facility] Last Admin: 02/25/18 09:31 Dose: 60 mg Clonidine (Catapres -) 0.1 mg PO BID [facility] Last Admin: 02/25/18 09:33 Dose: 0.1 mg Clopidogrel Bisulfate (Plavix -) 75 mg PO DAILY [facility] Last Admin: 02/25/18 09:33 Dose: 75 mg Collagenase (Santyl -) 1 applic TP DAILY [facility] Last Admin: 02/25/18 09:32 Dose: 1 applic Epoetin Lenny (Procrit -) 14,000 unit IVPUSH ONCE ONE Stop: 02/25/18 06:01 Fentanyl (Sublimaze Injection -) 25 mcg IVPUSH [id number] PRN PRN Reason: PAIN-PACU ORDER X 4 DOSES ONLY Heparin Sodium (Porcine) (Heparin -) 1,000 unit IVPUSH ONCE ONE Stop: 02/25/18 06:01 Heparin Sodium (Porcine) (Heparin -) 5,000 unit SQ BID [facility] Last Admin: 02/25/18 09:31 Dose: 5,000 unit Sodium Chloride (Normal Saline -) 250 mls @ 3,000 mls/hr IV PRN PRN PRN Reason: Hypotension during Dialysis Ceftazidime/Avibactam 0.94 gm/ (Dextrose) 100 mls @ 50 mls/hr IVPB MoWeFr@1200 [facility] Insulin Aspart (Novolog Mix 70/30 Vial) 20 units SQ BIDAC [facility] Last Admin: 02/25/18 06:40 Dose: 20 units Insulin Aspart (Novolog Vial Sliding Scale -) 1 vial SQ ACHS [facility] PRN Reason: Protocol Last Admin: 02/25/18 11:45 Dose: Not Given Lactic Acid (Lac-Hydrin 12) 1 applic TP BID PRN PRN Reason: WOUND CARE Linezolid (Zyvox (Restricted To Id) -) 600 mg PO BID [facility] Last Admin: 02/25/18 09:31 Dose: 600 mg Metoprolol Tartrate (Lopressor -) 25 mg PO BID [facility] Last Admin: 02/25/18 09:33 Dose: 25 mg Ondansetron HCl (Zofran Injection) 4 mg IVPUSH Q6H PRN PRN Reason: NAUSEA AND/OR VOMITING Pantoprazole Sodium (Protonix -) 40 mg PO DAILY [facility] Last Admin: 02/25/18 09:32 Dose: 40 mg Sevelamer Carbonate (Renvela -) 2,400 mg PO TIDCM [facility] Last Admin: 02/25/18 11:45 Dose: 2,400 mg - Objective Vital Signs: Vital Signs Temperature 97.6 F 02/25/18 14:15 Pulse Rate 65 02/25/18 14:15 Respiratory Rate 16 02/25/18 14:15 Blood Pressure 130/67 02/25/18 14:15 O2 Sat by Pulse Oximetry (%) 97 02/25/18 09:00 Constitutional: Yes: No Distress, Calm Cardiovascular: Yes: Regular Rate and Rhythm Respiratory: Yes: Regular, CTA Bilaterally Gastrointestinal: Yes: Normal Bowel Sounds, Soft Musculoskeletal: Yes: Other Extremities: Yes: Other Wound/Incision: Yes: Dressing Dry and Intact Neurological: Yes: Alert, Oriented Psychiatric: Yes: Alert, Oriented Labs: CBC, BMP 02/25/18 07:15 02/25/18 07:15 INR, PTT INR 1.29 (0.82-1.09) H 02/19/18 14:43 Assessment/Plan Problem List - Problems (1) Diabetes Code(s): E11.9 - TYPE 2 DIABETES MELLITUS WITHOUT COMPLICATIONS Qualifiers: Diabetes mellitus 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 treater insulin use: unspecified penitentiary insulin use status Diabetes mellitus complication status: with circulatory complication (2) ESRD (end stage renal disease) Code(s): N18.6 - END STAGE RENAL DISEASE (3) Foot ulcer due to secondary DM Code(s): E13.621 - OTHER SPECIFIED DIABETES MELLITUS WITH FOOT ULCER; L97.509 - NON-PRESSURE CHRONIC ULCER OTH PRT UNSP FOOT W UNSP SEVERITY (4) HTN (hypertension) Code(s): I10 - ESSENTIAL (PRIMARY) HYPERTENSION (5) Cellulitis Code(s): L03.90 - CELLULITIS, UNSPECIFIED Qualifiers: Site of cellulitis: extremity Site of cellulitis of extremity: toe Laterality: right Qualified Code(s): L03.031 - Cellulitis of right toe (6) HLD (hyperlipidemia) Code(s): E78.5 - HYPERLIPIDEMIA, UNSPECIFIED (7) Toe infection Code(s): L08.9 - LOCAL INFECTION OF THE SKIN AND SUBCUTANEOUS TISSUE, UNSP cre resistant kliebsella 9 vre wound infection Assessment/Plan 62 y.o. male with PMH of IDDM, ESRD on HD, HTN, diverticulosis, GERD, CHF, and Rt foot 4th/5th toe transmetarsal amp site nonhealing wound/OM with highly resistant organisms (ESBL klebsiella, VRE) presenting with fever, leukocytosis recently discharged on Tygacil, Rt foot edema. plan continue current abx await for repeat blood cx rest continue current mgmt patient stable podiatry on case
--- NOTE | 2018-02-25 16:49 | PN ---
Progress Note (short form) - Note Progress Note: Renal follow up for ESRD on HD Pt seen and examined at the bedside no acute complaints for dialysis today Vital Signs Temperature 97.6 F 02/25/18 14:15 Pulse Rate 65 02/25/18 14:15 Respiratory Rate 16 02/25/18 14:15 Blood Pressure 130/67 02/25/18 14:15 O2 Sat by Pulse Oximetry (%) 97 02/25/18 09:00 Intake & Output 02/22/18 02/23/18 02/24/18 02/25/18 23:59 23:59 23:59 23:59 Intake Total 1770 1650 300 350 Output Total 50 0 Balance 1770 1650 250 350 Weight 129.727 kg 132.449 kg 129.898 kg NAD MMM, NO JVD CTA 1+ LE edema d/l feet in dressing CBC, BMP 02/21/18 08:40 02/21/18 14:05 Current Medications Acetaminophen (Tylenol -) 650 mg PO Q6H PRN PRN Reason: FEVER Last Admin: 02/20/18 20:11 Dose: 650 mg Aspirin (Asa -) 81 mg PO DAILY [facility] Last Admin: 02/23/18 10:29 Dose: 81 mg Atorvastatin Calcium (Lipitor -) 40 mg PO HS [facility] Last Admin: 02/22/18 21:42 Dose: 40 mg Cinacalcet (Sensipar -) 60 mg PO DAILY [facility] Last Admin: 02/23/18 10:31 Dose: 60 mg Clonidine (Catapres -) 0.1 mg PO BID [facility] Last Admin: 02/23/18 10:29 Dose: 0.1 mg Collagenase (Santyl -) 1 applic TP DAILY [facility] Last Admin: 02/23/18 10:30 Dose: 1 applic Heparin Sodium (Porcine) (Heparin -) 5,000 unit SQ BID [facility] Last Admin: 02/23/18 10:30 Dose: 5,000 unit Ceftazidime/Avibactam 1.25 gm/ (Dextrose) 250 mls @ 125 mls/hr IVPB Q8H-IV [facility] PRN Reason: Protocol Last Admin: 02/23/18 10:38 Dose: 125 mls/hr Insulin Aspart (Novolog Mix 70/30 Vial) 40 units SQ BIDAC [facility] Last Admin: 02/23/18 06:39 Dose: 40 unit Insulin Aspart (Novolog Vial Sliding Scale -) 1 vial SQ ACHS [facility] PRN Reason: Protocol Last Admin: 02/23/18 12:38 Dose: Not Given Lactic Acid (Lac-Hydrin 12) 1 applic TP BID PRN PRN Reason: WOUND CARE Last Admin: 02/20/18 10:03 Dose: 1 applic Metoprolol Tartrate (Lopressor -) 25 mg PO BID [facility] Last Admin: 02/23/18 10:29 Dose: 25 mg Ondansetron HCl (Zofran Injection) 4 mg IVPUSH Q6H PRN PRN Reason: NAUSEA AND/OR VOMITING Last Admin: 02/20/18 20:12 Dose: 4 mg Pantoprazole Sodium (Protonix -) 40 mg PO DAILY [facility] Last Admin: 02/23/18 10:29 Dose: 40 mg 62 year old gentleman with PMhx of PMhx of ESRD on Hd (MWF), Hypertension, DM on insulin, ESBL osteomyelitis, PVD presented with fever and Le blister/lesion and admitted for wound infection. #ESRD on HD #LE wound infection with osteomylitis seen on MRI #Gram negative bacteremia #DM #Hypertension #Anemia (CKD related) For dialysis today with UF as tolerated Abx as per ID dosed for HD will continue LIZZIE with HD Meet Pedro DO
--- NOTE | 2018-02-25 17:10 | PN ---
Progress Note (short form) - Note Progress Note: Vascular Surgery Pt seen and examined. Right foot warm, with palpable DP pulse. Podiatry on the case for next steps. Cont plavix. Lui Keller DO
--- NOTE | 2018-02-25 17:24 | PN ---
Progress Note (short form) - Note Progress Note: Patient seen in bed earlier today. s/p angioplasty. VSS. Tmax 97.6 +granulation and necrosis both locations, -mal odor, mixed infection, warm foot , left foot healed diabetic wound right pvd om continue Santyl dressing changes daily. discussed future tx options. debridement, possible amputation 3rd toe, possible 5th ray resection ivabx, hbo , wound care or any combination of these. patient to decide how to proceed. will follow. ivabx as per id. discussed with Dr. Keller.
[2018-02-25] MEDS: CEFTAZIDIME/AVIBACTAM 0.94 GM in DEXTROSE 5%-WATER - 100 ML IVPB SCH (17:33)
[2018-02-25] MEDS ORDERED: SODIUM CHLORIDE 250 ML IV PRN (17:42)
[2018-02-25] MEDS ORDERED: EPOETIN ALFA 20,000 UNIT/1 ML VIAL IVPUSH ONE (17:45)
[2018-02-25] MEDS ORDERED: HEPARIN NA (PORCINE) 5,000 UNITS/ML 1ML VIAL IVPUSH ONE (17:45)
[2018-02-25] MEDS: ATORVASTATIN CA 40 MG TABLET (FP) PO SCH (22:33)
--- NOTE | 2018-02-25 23:48 | PN ---
Progress Note, Physician History of Present Illness: No new complaints - Current Medication List Current Medications: Active Medications Acetaminophen (Tylenol -) 650 mg PO Q6H PRN PRN Reason: FEVER Aspirin (Asa -) 81 mg PO DAILY [facility] Last Admin: 02/25/18 09:33 Dose: 81 mg Atorvastatin Calcium (Lipitor -) 40 mg PO HS [facility] Last Admin: 02/25/18 22:33 Dose: 40 mg Cinacalcet (Sensipar -) 60 mg PO DAILY [facility] Last Admin: 02/25/18 09:31 Dose: 60 mg Clonidine (Catapres -) 0.1 mg PO BID [facility] Last Admin: 02/25/18 22:33 Dose: 0.1 mg Clopidogrel Bisulfate (Plavix -) 75 mg PO DAILY [facility] Last Admin: 02/25/18 09:33 Dose: 75 mg Collagenase (Santyl -) 1 applic TP DAILY [facility] Last Admin: 02/25/18 09:32 Dose: 1 applic Fentanyl (Sublimaze Injection -) 25 mcg IVPUSH [id number] PRN PRN Reason: PAIN-PACU ORDER X 4 DOSES ONLY Heparin Sodium (Porcine) (Heparin -) 5,000 unit SQ BID [facility] Last Admin: 02/25/18 22:33 Dose: 5,000 unit Sodium Chloride (Normal Saline -) 250 mls @ 3,000 mls/hr IV PRN PRN PRN Reason: Hypotension during Dialysis Ceftazidime/Avibactam 0.94 gm/ (Dextrose) 100 mls @ 50 mls/hr IVPB MoWeFr@1200 [facility] Last Admin: 02/25/18 17:33 Dose: 50 mls/hr Insulin Aspart (Novolog Mix 70/30 Vial) 20 units SQ BIDAC [facility] Last Admin: 02/25/18 17:38 Dose: 20 units Insulin Aspart (Novolog Vial Sliding Scale -) 1 vial SQ ACHS [facility] PRN Reason: Protocol Last Admin: 02/25/18 22:33 Dose: 2 units Lactic Acid (Lac-Hydrin 12) 1 applic TP BID PRN PRN Reason: WOUND CARE Linezolid (Zyvox (Restricted To Id) -) 600 mg PO BID [facility] Last Admin: 02/25/18 22:36 Dose: 600 mg Metoprolol Tartrate (Lopressor -) 25 mg PO BID [facility] Last Admin: 04/20/18 22:33 Dose: 25 mg Ondansetron HCl (Zofran Injection) 4 mg IVPUSH Q6H PRN PRN Reason: NAUSEA AND/OR VOMITING Pantoprazole Sodium (Protonix -) 40 mg PO DAILY [facility] Last Admin: 02/25/18 09:32 Dose: 40 mg Sevelamer Carbonate (Renvela -) 2,400 mg PO TIDCM [facility] Last Admin: 02/25/18 17:38 Dose: 2,400 mg - Objective Vital Signs: Vital Signs Temperature 98.1 F 02/25/18 22:00 Pulse Rate 70 02/25/18 22:00 Respiratory Rate 16 02/25/18 22:00 Blood Pressure 147/73 02/25/18 22:00 O2 Sat by Pulse Oximetry (%) 93 L 02/25/18 21:00 Constitutional: Yes: Well Nourished Neck: Yes: WNL, Supple Cardiovascular: Yes: WNL, Regular Rate and Rhythm Respiratory: Yes: WNL, Regular, CTA Bilaterally Gastrointestinal: Yes: WNL, Normal Bowel Sounds, Soft Extremities: Yes: Other ((+) amputations rt toes (+) dressing rt foot) Labs: CBC, BMP 02/25/18 07:15 02/25/18 07:15 INR, PTT INR 1.29 (0.82-1.09) H 02/19/18 14:43 Problem List - Problems (1) Sepsis Assessment/Plan: Cont IV antibxs S/P angio/PTCA RLE Code(s): A41.9 - SEPSIS, UNSPECIFIED ORGANISM Qualifiers: Sepsis type: sepsis due to unspecified organism Qualified Code(s): A41.9 - Sepsis, unspecified organism (2) Diabetes Assessment/Plan: Cont sliding scale w/ coverage Cont novolog 70/30 Code(s): E11.9 - TYPE 2 DIABETES MELLITUS WITHOUT COMPLICATIONS Qualifiers: Diabetes mellitus prison insulin use: unspecified prison insulin use status Diabetes mellitus complication status: with circulatory complication (3) ESRD (end stage renal disease) Assessment/Plan: Dialysis as per renal Code(s): N18.6 - END STAGE RENAL DISEASE (4) HTN (hypertension) Assessment/Plan: Cont metoprolol/catapress Code(s): I10 - ESSENTIAL (PRIMARY) HYPERTENSION (5) HLD (hyperlipidemia) Assessment/Plan: Cont lipitor Code(s): E78.5 - HYPERLIPIDEMIA, UNSPECIFIED
[2018-02-26] MEDS: INSULIN (NOVOLOG MIX 70/30) 100 UNITS/ML MDV SQ SCH ×2 (06:42→17:02)
[2018-02-26] MEDS: INSULIN SLIDING SCALE (NOVOLOG) 1 VIAL SQ SCH ×4 (06:42→21:11)
--- NOTE | 2018-02-26 08:32 | PN ---
Progress Note, Physician History of Present Illness: PMH: 1. HTN 2. ESRD 3. Chronic diastolic CHF 4. Osteomyelitis RLE s/p amputations 3/4th digits 5. DM 6. Chronic anemia Now again admitted for fever, chills. Found to be febrile. I was asked to see him due to a mildly elevated TnI above zero. He denies CP, SOB, PND, orthopnea. - Current Medication List Current Medications: Active Medications Acetaminophen (Tylenol -) 650 mg PO Q6H PRN PRN Reason: FEVER Aspirin (Asa -) 81 mg PO DAILY [facility] Last Admin: 02/25/18 09:33 Dose: 81 mg Atorvastatin Calcium (Lipitor -) 40 mg PO HS [facility] Last Admin: 02/25/18 22:33 Dose: 40 mg Cinacalcet (Sensipar -) 60 mg PO DAILY [facility] Last Admin: 02/25/18 09:31 Dose: 60 mg Clonidine (Catapres -) 0.1 mg PO BID [facility] Last Admin: 02/25/18 22:33 Dose: 0.1 mg Clopidogrel Bisulfate (Plavix -) 75 mg PO DAILY [facility] Last Admin: 02/25/18 09:33 Dose: 75 mg Collagenase (Santyl -) 1 applic TP DAILY [facility] Last Admin: 02/25/18 09:32 Dose: 1 applic Fentanyl (Sublimaze Injection -) 25 mcg IVPUSH [id number] PRN PRN Reason: PAIN-PACU ORDER X 4 DOSES ONLY Heparin Sodium (Porcine) (Heparin -) 5,000 unit SQ BID [facility] Last Admin: 02/25/18 22:33 Dose: 5,000 unit Sodium Chloride (Normal Saline -) 250 mls @ 3,000 mls/hr IV PRN PRN PRN Reason: Hypotension during Dialysis Ceftazidime/Avibactam 0.94 gm/ (Dextrose) 100 mls @ 50 mls/hr IVPB MoWeFr@1200 [facility] Last Admin: 02/25/18 17:33 Dose: 50 mls/hr Insulin Aspart (Novolog Mix 70/30 Vial) 20 units SQ BIDAC [facility] Last Admin: 02/26/18 06:42 Dose: 20 units Insulin Aspart (Novolog Vial Sliding Scale -) 1 vial SQ ACHS [facility] PRN Reason: Protocol Last Admin: 02/26/18 06:42 Dose: Not Given Lactic Acid (Lac-Hydrin 12) 1 applic TP BID PRN PRN Reason: WOUND CARE Linezolid (Zyvox (Restricted To Id) -) 600 mg PO BID [facility] Last Admin: 02/25/18 22:36 Dose: 600 mg Metoprolol Tartrate (Lopressor -) 25 mg PO BID [facility] Last Admin: 02/25/18 22:33 Dose: 25 mg Ondansetron HCl (Zofran Injection) 4 mg IVPUSH Q6H PRN PRN Reason: NAUSEA AND/OR VOMITING Pantoprazole Sodium (Protonix -) 40 mg PO DAILY [facility] Last Admin: 02/25/18 09:32 Dose: 40 mg Sevelamer Carbonate (Renvela -) 2,400 mg PO TIDCM [facility] Last Admin: 02/25/18 17:38 Dose: 2,400 mg - Objective Vital Signs: Vital Signs Temperature 98.1 F 02/25/18 22:00 Pulse Rate 70 02/25/18 22:00 Respiratory Rate 16 02/25/18 22:00 Blood Pressure 147/73 02/25/18 22:00 O2 Sat by Pulse Oximetry (%) 93 L 02/25/18 21:00 Eyes: Yes: WNL, Conjunctiva Clear, EOM Intact HENT: Yes: WNL, Atraumatic, Normocephalic Neck: Yes: WNL, Supple, Trachea Midline Cardiovascular: Yes: WNL, Regular Rate and Rhythm Respiratory: Yes: WNL, Regular, CTA Bilaterally Gastrointestinal: Yes: WNL, Normal Bowel Sounds Genitourinary: Yes: WNL Musculoskeletal: Yes: WNL Extremities: Yes: Amputation, Erythema Edema: No Integumentary: Yes: WNL Neurological: Yes: WNL, Alert, Oriented ...Motor Strength: WNL Psychiatric: Yes: WNL Labs: CBC, BMP 02/25/18 07:15 02/25/18 07:15 INR, PTT INR 1.29 (0.82-1.09) H 02/19/18 14:43 Assessment/Plan IMP: SIRS syndrome in setting of likely RLE foot infection, gram - bacteremia, PAD s/ p RLE anterior tibial PTCA DM ESRD on HD NSVT PSVT Chronic HTN Elevated TnI, most probably due to SIRS/early sepsis/ESRD/chronic diastolic CHF- - not due to ACS REC: 1. Cultures, abx as per PMD and ID; MRI lower extremity pending. 2. Cont Metoprolol tartrate 25mg PO BID for control of PSVT, NSVT and concomitant HTN 3. Echo with mild reduction of LVEF, recent stress test without ischemia. 4. As PAT and PSVT are controlled, tele discontinued. 5. Continue ASA 81mg daily and check fasting lipids. 6. Cont ASA and Plavix
--- NOTE | 2018-02-26 08:41 | PN ---
Progress Note (short form) - Note Progress Note: Patient seen in bed earlier today. VSS. Tmax 98.1 +granulation and necrosis both locations, -mal odor, mixed infection, warm foot , left foot healed diabetic wound right pvd om continue Santyl dressing changes daily. patient wants to clean up necrotic tissue and save bone. patient agrees to debridement tissue, ivabx, hbo, wound care.will follow till dc. Patient may go home from Podiatry standpoint and have hbo, ivabx, wound care at home. Can go home if ok with ID and medicine.
[2018-02-26] MEDS ORDERED: PT OWN MED DRAWER 7, Y5N ONE ×3 (09:31→20:42)
[2018-02-26] MEDS: SEVELAMER CARBONATE 800 MG TAB (FP) PO SCH ×3 (09:38→17:02)
[2018-02-26] MEDS: METOPROLOL TARTRATE 25 MG TABLET (FP) PO SCH ×2 (09:41→21:11)
[2018-02-26] MEDS: ASPIRIN 81 MG CHEWABLE TABLETS PO SCH (09:41)
[2018-02-26] MEDS: PANTOPRAZOLE 40 MG TABLET (FP) PO SCH (09:41)
[2018-02-26] MEDS: cloNIDine HCL 0.1 MG TABLET PO SCH ×2 (09:41→21:11)
[2018-02-26] MEDS: CLOPIDOGREL BISULFATE 75 MG TABLET (FP) PO SCH (09:41)
[2018-02-26] MEDS: CINACALCET HCL 30 MG TAB (FP) PO SCH (09:42)
[2018-02-26] MEDS: LINEZOLID 600 MG TABLET (RESTRICTED TO ID) PO SCH ×2 (09:42→21:11)
[2018-02-26] MEDS: HEPARIN NA (PORCINE) 5,000 UNITS/ML 1ML VIAL SQ SCH ×3 (09:43→21:15)
[2018-02-26] MEDS: COLLAGENASE CLOSTRIDIUM HIST. 30 GRAMS TUBE TP SCH (09:43)
--- NOTE | 2018-02-26 10:41 | PN ---
Progress Note (short form) - Note Progress Note: Renal follow up for ESRD on HD Pt seen and examined at the bedside awake and alert no acute complaints s/p dialysis yesterday w/o complication no fever, chills Vital Signs Temperature 98.1 F 02/25/18 22:00 Pulse Rate 70 02/25/18 22:00 Respiratory Rate 16 02/25/18 22:00 Blood Pressure 147/73 02/25/18 22:00 O2 Sat by Pulse Oximetry (%) 93 L 02/25/18 21:00 Intake & Output 02/23/18 02/24/18 02/25/18 02/26/18 23:59 23:59 23:59 23:59 Intake Total 1650 300 350 Output Total 50 0 0 Balance 1650 250 350 0 Weight 132.449 kg 129.898 kg 129.898 kg NAD MMM, NO JVD CTA 1+ LE edema d/l feet in dressing CBC, BMP 02/25/18 07:15 02/25/18 07:15 Current Medications Acetaminophen (Tylenol -) 650 mg PO Q6H PRN PRN Reason: FEVER Aspirin (Asa -) 81 mg PO DAILY [facility] Last Admin: 02/26/18 09:41 Dose: 81 mg Atorvastatin Calcium (Lipitor -) 40 mg PO HS [facility] Last Admin: 02/25/18 22:33 Dose: 40 mg Cinacalcet (Sensipar -) 60 mg PO DAILY [facility] Last Admin: 02/26/18 09:42 Dose: 60 mg Clonidine (Catapres -) 0.1 mg PO BID [facility] Last Admin: 02/26/18 09:41 Dose: 0.1 mg Clopidogrel Bisulfate (Plavix -) 75 mg PO DAILY [facility] Last Admin: 02/26/18 09:41 Dose: 75 mg Collagenase (Santyl -) 1 applic TP DAILY [facility] Last Admin: 02/26/18 09:43 Dose: 1 applic Fentanyl (Sublimaze Injection -) 25 mcg IVPUSH [id number] PRN PRN Reason: PAIN-PACU ORDER X 4 DOSES ONLY Heparin Sodium (Porcine) (Heparin -) 5,000 unit SQ BID [facility] Last Admin: 02/26/18 09:43 Dose: 5,000 unit Sodium Chloride (Normal Saline -) 250 mls @ 3,000 mls/hr IV PRN PRN PRN Reason: Hypotension during Dialysis Ceftazidime/Avibactam 0.94 gm/ (Dextrose) 100 mls @ 50 mls/hr IVPB MoWeFr@1200 [facility] Last Admin: 02/25/18 17:33 Dose: 50 mls/hr Insulin Aspart (Novolog Mix 70/30 Vial) 20 units SQ BIDAC [facility] Last Admin: 02/26/18 06:42 Dose: 20 units Insulin Aspart (Novolog Vial Sliding Scale -) 1 vial SQ ACHS [facility] PRN Reason: Protocol Last Admin: 02/26/18 06:42 Dose: Not Given Lactic Acid (Lac-Hydrin 12) 1 applic TP BID PRN PRN Reason: WOUND CARE Linezolid (Zyvox (Restricted To Id) -) 600 mg PO BID [facility] Last Admin: 02/26/18 09:42 Dose: 600 mg Metoprolol Tartrate (Lopressor -) 25 mg PO BID [facility] Last Admin: 02/26/18 09:41 Dose: 25 mg Ondansetron HCl (Zofran Injection) 4 mg IVPUSH Q6H PRN PRN Reason: NAUSEA AND/OR VOMITING Pantoprazole Sodium (Protonix -) 40 mg PO DAILY [facility] Last Admin: 02/26/18 09:41 Dose: 40 mg Sevelamer Carbonate (Renvela -) 2,400 mg PO TIDCM [facility] Last Admin: 02/26/18 09:38 Dose: Not Given 62 year old gentleman with PMhx of PMhx of ESRD on Hd (MWF), Hypertension, DM on insulin, ESBL osteomyelitis, PVD presented with fever and Le blister/lesion and admitted for wound infection. #ESRD on HD #LE wound infection with osteomylitis seen on MRI #Gram negative bacteremia #DM #Hypertension #Anemia (CKD related) s/p dialysis yesterday, no acute indication for dialysis today Renal diet continue Renvela TID with meals s/p repeat blood culture yesterday, on growth as of yet continue abx as per ID following dialysis podiatry follow up and debridement as needed Meet Pedro DO
--- NOTE | 2018-02-26 13:34 | PN ---
Progress Note, Physician History of Present Illness: doing well no complaints afebrile stable - Current Medication List Current Medications: Active Medications Acetaminophen (Tylenol -) 650 mg PO Q6H PRN PRN Reason: FEVER Aspirin (Asa -) 81 mg PO DAILY [facility] Last Admin: 02/26/18 09:41 Dose: 81 mg Atorvastatin Calcium (Lipitor -) 40 mg PO HS [facility] Last Admin: 02/25/18 22:33 Dose: 40 mg Cinacalcet (Sensipar -) 60 mg PO DAILY [facility] Last Admin: 02/26/18 09:42 Dose: 60 mg Clonidine (Catapres -) 0.1 mg PO BID [facility] Last Admin: 02/26/18 09:41 Dose: 0.1 mg Clopidogrel Bisulfate (Plavix -) 75 mg PO DAILY [facility] Last Admin: 02/26/18 09:41 Dose: 75 mg Collagenase (Santyl -) 1 applic TP DAILY [facility] Last Admin: 02/26/18 09:43 Dose: 1 applic Fentanyl (Sublimaze Injection -) 25 mcg IVPUSH [id number] PRN PRN Reason: PAIN-PACU ORDER X 4 DOSES ONLY Heparin Sodium (Porcine) (Heparin -) 5,000 unit SQ BID [facility] Last Admin: 02/26/18 09:43 Dose: 5,000 unit Sodium Chloride (Normal Saline -) 250 mls @ 3,000 mls/hr IV PRN PRN PRN Reason: Hypotension during Dialysis Ceftazidime/Avibactam 0.94 gm/ (Dextrose) 100 mls @ 50 mls/hr IVPB MoWeFr@1200 [facility] Last Admin: 02/25/18 17:33 Dose: 50 mls/hr Insulin Aspart (Novolog Mix 70/30 Vial) 20 units SQ BIDAC [facility] Last Admin: 02/26/18 06:42 Dose: 20 units Insulin Aspart (Novolog Vial Sliding Scale -) 1 vial SQ ACHS [facility] PRN Reason: Protocol Last Admin: 02/26/18 11:53 Dose: Not Given Lactic Acid (Lac-Hydrin 12) 1 applic TP BID PRN PRN Reason: WOUND CARE Linezolid (Zyvox (Restricted To Id) -) 600 mg PO BID [facility] Last Admin: 02/26/18 09:42 Dose: 600 mg Metoprolol Tartrate (Lopressor -) 25 mg PO BID [facility] Last Admin: 02/26/18 09:41 Dose: 25 mg Ondansetron HCl (Zofran Injection) 4 mg IVPUSH Q6H PRN PRN Reason: NAUSEA AND/OR VOMITING Pantoprazole Sodium (Protonix -) 40 mg PO DAILY [facility] Last Admin: 02/26/18 09:41 Dose: 40 mg Sevelamer Carbonate (Renvela -) 2,400 mg PO TIDCM [facility] Last Admin: 02/26/18 11:54 Dose: 2,400 mg - Objective Vital Signs: Vital Signs Temperature 98.1 F 02/25/18 22:00 Pulse Rate 70 02/25/18 22:00 Respiratory Rate 18 02/26/18 10:00 Blood Pressure 147/73 02/25/18 22:00 O2 Sat by Pulse Oximetry (%) 94 L 02/26/18 10:00 Constitutional: Yes: No Distress, Calm Cardiovascular: Yes: Regular Rate and Rhythm Respiratory: Yes: Regular, CTA Bilaterally Gastrointestinal: Yes: Normal Bowel Sounds, Soft Musculoskeletal: Yes: Other Extremities: Yes: Other Wound/Incision: Yes: Dressing Dry and Intact Neurological: Yes: Alert, Oriented Psychiatric: Yes: Alert, Oriented Labs: CBC, BMP 02/25/18 07:15 02/25/18 07:15 INR, PTT INR 1.29 (0.82-1.09) H 02/19/18 14:43 Assessment/Plan Problem List - Problems (1) Diabetes Code(s): E11.9 - TYPE 2 DIABETES MELLITUS WITHOUT COMPLICATIONS Qualifiers: Diabetes mellitus care home 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 Diabetes mellitus complication status: with circulatory complication (2) ESRD (end stage renal disease) Code(s): N18.6 - END STAGE RENAL DISEASE (3) Foot ulcer due to secondary DM Code(s): E13.621 - OTHER SPECIFIED DIABETES MELLITUS WITH FOOT ULCER; L97.509 - NON-PRESSURE CHRONIC ULCER OTH PRT UNSP FOOT W UNSP SEVERITY (4) HTN (hypertension) Code(s): I10 - ESSENTIAL (PRIMARY) HYPERTENSION (5) Cellulitis Code(s): L03.90 - CELLULITIS, UNSPECIFIED Qualifiers: Site of cellulitis: extremity Site of cellulitis of extremity: toe Laterality: right Qualified Code(s): L03.031 - Cellulitis of right toe (6) HLD (hyperlipidemia) Code(s): E78.5 - HYPERLIPIDEMIA, UNSPECIFIED (7) Toe infection Code(s): L08.9 - LOCAL INFECTION OF THE SKIN AND SUBCUTANEOUS TISSUE, UNSP cre resistant kliebsella 9 vre wound infection Assessment/Plan 62 y.o. male with PMH of IDDM, ESRD on HD, HTN, diverticulosis, GERD, CHF, and Rt foot 4th/5th toe transmetarsal amp site nonhealing wound/OM with highly resistant organisms (ESBL klebsiella, VRE) presenting with fever, leukocytosis recently discharged on Tygacil, Rt foot edema. repeat cx negative plan continue current abx repeat cx negative rest continue current mgmt patient stable podiatry on case
--- NOTE | 2018-02-26 16:29 | PN ---
Progress Note, Physician History of Present Illness: No new complaints - Current Medication List Current Medications: Active Medications Acetaminophen (Tylenol -) 650 mg PO Q6H PRN PRN Reason: FEVER Aspirin (Asa -) 81 mg PO DAILY [facility] Last Admin: 02/26/18 09:41 Dose: 81 mg Atorvastatin Calcium (Lipitor -) 40 mg PO HS [facility] Last Admin: 02/25/18 22:33 Dose: 40 mg Cinacalcet (Sensipar -) 60 mg PO DAILY [facility] Last Admin: 02/26/18 09:42 Dose: 60 mg Clonidine (Catapres -) 0.1 mg PO BID [facility] Last Admin: 02/26/18 09:41 Dose: 0.1 mg Clopidogrel Bisulfate (Plavix -) 75 mg PO DAILY [facility] Last Admin: 02/26/18 09:41 Dose: 75 mg Collagenase (Santyl -) 1 applic TP DAILY [facility] Last Admin: 02/26/18 09:43 Dose: 1 applic Fentanyl (Sublimaze Injection -) 25 mcg IVPUSH [id number] PRN PRN Reason: PAIN-PACU ORDER X 4 DOSES ONLY Heparin Sodium (Porcine) (Heparin -) 5,000 unit SQ BID [facility] Last Admin: 02/26/18 09:43 Dose: 5,000 unit Sodium Chloride (Normal Saline -) 250 mls @ 3,000 mls/hr IV PRN PRN PRN Reason: Hypotension during Dialysis Ceftazidime/Avibactam 0.94 gm/ (Dextrose) 100 mls @ 50 mls/hr IVPB MoWeFr@1200 [facility] Last Admin: 02/25/18 17:33 Dose: 50 mls/hr Insulin Aspart (Novolog Mix 70/30 Vial) 20 units SQ BIDAC [facility] Last Admin: 02/26/18 06:42 Dose: 20 units Insulin Aspart (Novolog Vial Sliding Scale -) 1 vial SQ ACHS [facility] PRN Reason: Protocol Last Admin: 02/26/18 11:53 Dose: Not Given Lactic Acid (Lac-Hydrin 12) 1 applic TP BID PRN PRN Reason: WOUND CARE Linezolid (Zyvox (Restricted To Id) -) 600 mg PO BID [facility] Last Admin: 02/26/18 09:42 Dose: 600 mg Metoprolol Tartrate (Lopressor -) 25 mg PO BID [facility] Last Admin: 04/21/18 09:41 Dose: 25 mg Ondansetron HCl (Zofran Injection) 4 mg IVPUSH Q6H PRN PRN Reason: NAUSEA AND/OR VOMITING Pantoprazole Sodium (Protonix -) 40 mg PO DAILY [facility] Last Admin: 02/26/18 09:41 Dose: 40 mg Sevelamer Carbonate (Renvela -) 2,400 mg PO TIDCM [facility] Last Admin: 02/26/18 11:54 Dose: 2,400 mg - Objective Vital Signs: Vital Signs Temperature 98.3 F 02/26/18 15:00 Pulse Rate 71 02/26/18 15:00 Respiratory Rate 02/26/18 15:00 Blood Pressure 120/55 02/26/18 15:00 O2 Sat by Pulse Oximetry (%) 94 L 02/26/18 10:00 Constitutional: Yes: Well Nourished Neck: Yes: WNL, Supple Cardiovascular: Yes: WNL, Regular Rate and Rhythm Respiratory: Yes: WNL, Regular, CTA Bilaterally Gastrointestinal: Yes: WNL, Normal Bowel Sounds, Soft Extremities: Yes: Other ((+) rt foot w/ dressing) Labs: CBC, BMP 02/25/18 07:15 02/25/18 07:15 INR, PTT INR 1.29 (0.82-1.09) H 02/19/18 14:43 Problem List - Problems (1) Sepsis Assessment/Plan: Cont IV antibxs S/P angio/PTCA RLE Code(s): A41.9 - SEPSIS, UNSPECIFIED ORGANISM Qualifiers: Sepsis type: sepsis due to unspecified organism Qualified Code(s): A41.9 - Sepsis, unspecified organism (2) Diabetes Assessment/Plan: Cont sliding scale w/ coverage Cont novolog 70/30 Code(s): E11.9 - TYPE 2 DIABETES MELLITUS WITHOUT COMPLICATIONS Qualifiers: 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
[2018-02-26] MEDS: ATORVASTATIN CA 40 MG TABLET (FP) PO SCH (21:11)
[2018-02-27] MEDS: INSULIN SLIDING SCALE (NOVOLOG) 1 VIAL SQ SCH ×4 (06:06→21:41)
[2018-02-27 07:36] LABS: ANION GAP 11 (8-16); BLOOD UREA NITROGEN 31 mg/dL (7-18); CALCIUM 7.3 mg/dL (8.5-10.1); CHLORIDE 98 mmol/L (98-107); CO2 31 mmol/L (21-32); GLUCOSE,RANDOM 105 mg/dL (74-106); POTASSIUM 4.8 mmol/L (3.5-5.1); SODIUM 140 mmol/L (136-145)
[2018-02-27 08:21] LABS: CREATININE 7.6 mg/dL (0.7-1.3)
--- NOTE | 2018-02-27 08:38 | PN ---
Progress Note, Physician History of Present Illness: PMH: 1. HTN 2. ESRD 3. Chronic diastolic CHF 4. Osteomyelitis RLE s/p amputations 3/4th digits 5. DM 6. Chronic anemia Now again admitted for fever, chills. Found to be febrile. I was asked to see him due to a mildly elevated TnI above zero. He denies CP, SOB, PND, orthopnea. - Current Medication List Current Medications: Active Medications Acetaminophen (Tylenol -) 650 mg PO Q6H PRN PRN Reason: FEVER Aspirin (Asa -) 81 mg PO DAILY [facility] Last Admin: 02/26/18 09:41 Dose: 81 mg Atorvastatin Calcium (Lipitor -) 40 mg PO HS [facility] Last Admin: 02/26/18 21:11 Dose: 40 mg Cinacalcet (Sensipar -) 60 mg PO DAILY [facility] Last Admin: 02/26/18 09:42 Dose: 60 mg Clonidine (Catapres -) 0.1 mg PO BID [facility] Last Admin: 02/26/18 21:11 Dose: 0.1 mg Clopidogrel Bisulfate (Plavix -) 75 mg PO DAILY [facility] Last Admin: 02/26/18 09:41 Dose: 75 mg Collagenase (Santyl -) 1 applic TP DAILY [facility] Last Admin: 02/26/18 09:43 Dose: 1 applic Fentanyl (Sublimaze Injection -) 25 mcg IVPUSH [id number] PRN PRN Reason: PAIN-PACU ORDER X 4 DOSES ONLY Heparin Sodium (Porcine) (Heparin -) 5,000 unit SQ BID [facility] Last Admin: 02/26/18 21:15 Dose: Not Given Sodium Chloride (Normal Saline -) 250 mls @ 3,000 mls/hr IV PRN PRN PRN Reason: Hypotension during Dialysis Ceftazidime/Avibactam 0.94 gm/ (Dextrose) 100 mls @ 50 mls/hr IVPB MoWeFr@1200 [facility] Last Admin: 02/25/18 17:33 Dose: 50 mls/hr Insulin Aspart (Novolog Mix 70/30 Vial) 20 units SQ BIDAC [facility] Last Admin: 02/26/18 17:02 Dose: 20 units Insulin Aspart (Novolog Vial Sliding Scale -) 1 vial SQ ACHS [facility] PRN Reason: Protocol Last Admin: 02/27/18 06:06 Dose: Not Given Lactic Acid (Lac-Hydrin 12) 1 applic TP BID PRN PRN Reason: WOUND CARE Linezolid (Zyvox (Restricted To Id) -) 600 mg PO BID [facility] Last Admin: 02/26/18 21:11 Dose: 600 mg Metoprolol Tartrate (Lopressor -) 25 mg PO BID [facility] Last Admin: 02/26/18 21:11 Dose: 25 mg Ondansetron HCl (Zofran Injection) 4 mg IVPUSH Q6H PRN PRN Reason: NAUSEA AND/OR VOMITING Pantoprazole Sodium (Protonix -) 40 mg PO DAILY [facility] Last Admin: 02/26/18 09:41 Dose: 40 mg Sevelamer Carbonate (Renvela -) 2,400 mg PO TIDCM [facility] Last Admin: 02/26/18 17:02 Dose: 2,400 mg - Objective Vital Signs: Vital Signs Temperature 98.2 F 02/27/18 02:00 Pulse Rate 61 02/27/18 02:00 Respiratory Rate 20 02/27/18 02:00 Blood Pressure 137/66 02/27/18 02:00 O2 Sat by Pulse Oximetry (%) 97 02/26/18 21:00 Eyes: Yes: WNL, Conjunctiva Clear, EOM Intact HENT: Yes: WNL, Atraumatic, Normocephalic Neck: Yes: WNL, Supple, Trachea Midline Cardiovascular: Yes: WNL, Regular Rate and Rhythm Respiratory: Yes: WNL, Regular, CTA Bilaterally Gastrointestinal: Yes: WNL, Normal Bowel Sounds Genitourinary: Yes: WNL Musculoskeletal: Yes: WNL Extremities: Yes: Erythema, Other (surgical dressing) Edema: Yes Integumentary: Yes: WNL Neurological: Yes: WNL, Alert, Oriented ...Motor Strength: WNL Psychiatric: Yes: WNL Labs: CBC, BMP 02/25/18 07:15 02/27/18 06:05 INR, PTT INR 1.29 (0.82-1.09) H 02/19/18 14:43 Assessment/Plan IMP: SIRS syndrome in setting of likely RLE foot infection, gram - bacteremia, PAD s/ p RLE anterior tibial PTCA DM ESRD on HD NSVT PSVT Chronic HTN Elevated TnI, most probably due to SIRS/early sepsis/ESRD/chronic diastolic CHF- - not due to ACS REC: 1. Cultures, abx as per PMD and ID; MRI lower extremity pending. 2. Cont Metoprolol tartrate 25mg PO BID for control of PSVT, NSVT and concomitant HTN 3. Echo with mild reduction of LVEF, recent stress test without ischemia. 4. As PAT and PSVT are controlled, tele discontinued. 5. Continue ASA 81mg daily and check fasting lipids. 6. Cont ASA and Plavix
[2018-02-27] MEDS: INSULIN (NOVOLOG MIX 70/30) 100 UNITS/ML MDV SQ SCH ×2 (08:48→17:43)
[2018-02-27] MEDS: SEVELAMER CARBONATE 800 MG TAB (FP) PO SCH ×3 (08:49→17:16)
[2018-02-27] MEDS ORDERED: PT OWN MED DRAWER 7, Y5N ONE ×3 (08:57→21:43)
[2018-02-27] MEDS: HEPARIN NA (PORCINE) 5,000 UNITS/ML 1ML VIAL SQ SCH ×3 (09:31→21:48)
[2018-02-27] MEDS: ASPIRIN 81 MG CHEWABLE TABLETS PO SCH (09:32)
[2018-02-27] MEDS: cloNIDine HCL 0.1 MG TABLET PO SCH ×2 (09:32→21:40)
[2018-02-27] MEDS: CLOPIDOGREL BISULFATE 75 MG TABLET (FP) PO SCH (09:32)
[2018-02-27] MEDS: LINEZOLID 600 MG TABLET (RESTRICTED TO ID) PO SCH ×2 (09:33→21:44)
[2018-02-27] MEDS: PANTOPRAZOLE 40 MG TABLET (FP) PO SCH (09:33)
[2018-02-27] MEDS: METOPROLOL TARTRATE 25 MG TABLET (FP) PO SCH ×2 (09:33→21:40)
[2018-02-27] MEDS: CINACALCET HCL 30 MG TAB (FP) PO SCH (09:34)
[2018-02-27] MEDS: COLLAGENASE CLOSTRIDIUM HIST. 30 GRAMS TUBE TP SCH (11:25)
--- NOTE | 2018-02-27 12:37 | PN ---
Progress Note, Physician History of Present Illness: doing well no complaints afebrile stable - Current Medication List Current Medications: Active Medications Acetaminophen (Tylenol -) 650 mg PO Q6H PRN PRN Reason: FEVER Aspirin (Asa -) 81 mg PO DAILY [facility] Last Admin: 02/27/18 09:32 Dose: 81 mg Atorvastatin Calcium (Lipitor -) 40 mg PO HS COUNT [facility]CLUDES [facility] Last Admin: 02/26/18 21:11 Dose: 40 mg Cinacalcet (Sensipar -) 60 mg PO DAILY [facility] Last Admin: 02/27/18 09:34 Dose: 60 mg Clonidine (Catapres -) 0.1 mg PO BID [facility] Last Admin: 02/27/18 09:32 Dose: 0.1 mg Clopidogrel Bisulfate (Plavix -) 75 mg PO DAILY [facility] Last Admin: 02/27/18 09:32 Dose: 75 mg Collagenase (Santyl -) 1 applic TP DAILY [facility] Last Admin: 02/27/18 11:25 Dose: 1 applic Fentanyl (Sublimaze Injection -) 25 mcg IVPUSH [id number] PRN PRN Reason: PAIN-PACU ORDER X 4 DOSES ONLY Heparin Sodium (Porcine) (Heparin -) 5,000 unit SQ BID [facility]CLUDES [facility] Last Admin: 02/27/18 09:31 Dose: Not Given Sodium Chloride (Normal Saline -) 250 mls @ 3,000 mls/hr IV PRN PRN PRN Reason: Hypotension during Dialysis Ceftazidime/Avibactam 0.94 gm/ (Dextrose) 100 mls @ 50 mls/hr IVPB MoWeFr@1200 [facility] Last Admin: 02/25/18 17:33 Dose: 50 mls/hr Insulin Aspart (Novolog Mix 70/30 Vial) 20 units SQ BIDAC COUNT [facility]CLUDES [facility] Last Admin: 02/27/18 08:48 Dose: 20 units Insulin Aspart (Novolog Vial Sliding Scale -) 1 vial SQ ACHS COUNT [facility]CLUDES [facility] PRN Reason: Protocol Last Admin: 02/27/18 11:53 Dose: Not Given Lactic Acid (Lac-Hydrin 12) 1 applic TP BID PRN PRN Reason: WOUND CARE Linezolid (Zyvox (Restricted To Id) -) 600 mg PO BID COUNT [facility]CLUD[facility] Last Admin: 02/27/18 09:33 Dose: 600 mg Metoprolol Tartrate (Lopressor -) 25 mg PO BID [facility] Last Admin: 02/27/18 09:33 Dose: 25 mg Ondansetron HCl (Zofran Injection) 4 mg IVPUSH Q6H PRN PRN Reason: NAUSEA AND/OR VOMITING Pantoprazole Sodium (Protonix -) 40 mg PO DAILY [facility] Last Admin: 02/27/18 09:33 Dose: 40 mg Sevelamer Carbonate (Renvela -) 2,400 mg PO TIDCM COUNT [facility]CLUDES [facility] Last Admin: 02/27/18 11:55 Dose: 2,400 mg - Objective Vital Signs: Vital Signs Temperature 98.4 F 02/27/18 10:40 Pulse Rate 69 02/27/18 10:40 Respiratory Rate 18 02/27/18 10:40 Blood Pressure 143/76 02/27/18 10:40 O2 Sat by Pulse Oximetry (%) 99 02/27/18 09:00 Constitutional: Yes: No Distress, Calm Cardiovascular: Yes: Regular Rate and Rhythm Respiratory: Yes: Regular, CTA Bilaterally Gastrointestinal: Yes: Normal Bowel Sounds, Soft Musculoskeletal: Yes: WNL Extremities: Yes: Other Wound/Incision: Yes: Dressing Dry and Intact Neurological: Yes: Alert, Oriented Psychiatric: Yes: Alert, Oriented Labs: CBC, BMP 02/25/18 07:15 02/27/18 06:05 INR, PTT INR 1.29 (0.82-1.09) H 02/19/18 14:43 Assessment/Plan Problem List - Problems (1) Diabetes Code(s): E11.9 - TYPE 2 DIABETES MELLITUS WITHOUT COMPLICATIONS Qualifiers: Diabetes mellitus rn long term care insulin use: unspecified rn long term care insulin use status Diabetes mellitus complication status: with circulatory complication (2) ESRD (end stage renal disease) Code(s): N18.6 - END STAGE RENAL DISEASE (3) Foot ulcer due to secondary DM Code(s): E13.621 - OTHER SPECIFIED DIABETES MELLITUS WITH FOOT ULCER; L97.509 - NON-PRESSURE CHRONIC ULCER OTH PRT UNSP FOOT W UNSP SEVERITY (4) HTN (hypertension) Code(s): I10 - ESSENTIAL (PRIMARY) HYPERTENSION (5) Cellulitis Code(s): L03.90 - CELLULITIS, UNSPECIFIED Qualifiers: Site of cellulitis: extremity Site of cellulitis of extremity: toe Laterality: right Qualified Code(s): L03.031 - Cellulitis of right toe (6) HLD (hyperlipidemia) Code(s): E78.5 - HYPERLIPIDEMIA, UNSPECIFIED (7) Toe infection Code(s): L08.9 - LOCAL INFECTION OF THE SKIN AND SUBCUTANEOUS TISSUE, UNSP cre resistant kliebsella 9 vre wound infection Assessment/Plan 62 y.o. male with PMH of IDDM, ESRD on HD, HTN, diverticulosis, GERD, CHF, and Rt foot 4th/5th toe transmetarsal amp site nonhealing wound/OM with highly resistant organisms (ESBL klebsiella, VRE) presenting with fever, leukocytosis recently discharged on Tygacil, Rt foot edema. repeat cx negative plan continue current abx repeat cx negative rest continue current mgmt patient stable podiatry on case
--- NOTE | 2018-02-27 18:23 | PN ---
Progress Note, Physician History of Present Illness: Pt rfused heparin bc he had a nose bleed wc has now resolved - Current Medication List Current Medications: Active Medications Acetaminophen (Tylenol -) 650 mg PO Q6H PRN PRN Reason: FEVER Aspirin (Asa -) 81 mg PO DAILY [facility] Last Admin: 02/27/18 09:32 Dose: 81 mg Atorvastatin Calcium (Lipitor -) 40 mg PO HS [facility] Last Admin: 02/26/18 21:11 Dose: 40 mg Cinacalcet (Sensipar -) 60 mg PO DAILY [facility] Last Admin: 02/27/18 09:34 Dose: 60 mg Clonidine (Catapres -) 0.1 mg PO BID [facility] Last Admin: 02/27/18 09:32 Dose: 0.1 mg Clopidogrel Bisulfate (Plavix -) 75 mg PO DAILY [facility] Last Admin: 02/27/18 09:32 Dose: 75 mg Collagenase (Santyl -) 1 applic TP DAILY [facility] Last Admin: 02/27/18 11:25 Dose: 1 applic Fentanyl (Sublimaze Injection -) 25 mcg IVPUSH [id number] PRN PRN Reason: PAIN-PACU ORDER X 4 DOSES ONLY Heparin Sodium (Porcine) (Heparin -) 5,000 unit SQ BID [facility] Last Admin: 02/27/18 09:31 Dose: Not Given Sodium Chloride (Normal Saline -) 250 mls @ 3,000 mls/hr IV PRN PRN PRN Reason: Hypotension during Dialysis Ceftazidime/Avibactam 0.94 gm/ (Dextrose) 100 mls @ 50 mls/hr IVPB MoWeFr@1200 [facility] Last Admin: 02/25/18 17:33 Dose: 50 mls/hr Insulin Aspart (Novolog Mix 70/30 Vial) 20 units SQ BIDAC [facility] Last Admin: 02/27/18 17:43 Dose: Not Given Insulin Aspart (Novolog Vial Sliding Scale -) 1 vial SQ ACHS [facility] PRN Reason: Protocol Last Admin: 02/27/18 15:42 Dose: Not Given Lactic Acid (Lac-Hydrin 12) 1 applic TP BID PRN PRN Reason: WOUND CARE Linezolid (Zyvox (Restricted To Id) -) 600 mg PO BID [facility] Last Admin: 02/27/18 09:33 Dose: 600 mg Metoprolol Tartrate (Lopressor -) 25 mg PO BID [facility] Last Admin: 02/27/18 09:33 Dose: 25 mg Ondansetron HCl (Zofran Injection) 4 mg IVPUSH Q6H PRN PRN Reason: NAUSEA AND/OR VOMITING Pantoprazole Sodium (Protonix -) 40 mg PO DAILY [facility] Last Admin: 02/27/18 09:33 Dose: 40 mg Sevelamer Carbonate (Renvela -) 2,400 mg PO TIDCM [facility] Last Admin: 02/27/18 17:16 Dose: 2,400 mg - Objective Vital Signs: Vital Signs Temperature 98 F 02/27/18 17:53 Pulse Rate 64 02/27/18 17:53 Respiratory Rate 18 02/27/18 17:53 Blood Pressure 157/73 02/27/18 17:53 O2 Sat by Pulse Oximetry (%) 99 02/27/18 09:00 Constitutional: Yes: Well Nourished HENT: Yes: WNL Neck: Yes: WNL, Supple Cardiovascular: Yes: WNL, Regular Rate and Rhythm Respiratory: Yes: WNL, Regular, CTA Bilaterally Extremities: Yes: Other ((+) b/l feet in dressing) Labs: CBC, BMP 02/25/18 07:15 02/27/18 06:05 INR, PTT INR 1.29 (0.82-1.09) H 02/19/18 14:43 Problem List - Problems (1) Sepsis Assessment/Plan: IV ceftazidime/po [place] Will speak to ID about dc planning Pt has PIC in rt ant chest wall S/P RLE angiogram/PTCA Code(s): A41.9 - SEPSIS, UNSPECIFIED ORGANISM Qualifiers: Sepsis type: sepsis due to unspecified organism Qualified Code(s): A41.9 - Sepsis, unspecified organism (2) Diabetes Assessment/Plan: Cont sliding scale w/ coverage Cont novolog 70/30 Code(s): E11.9 - TYPE 2 DIABETES MELLITUS WITHOUT COMPLICATIONS Qualifiers: Diabetes 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
[2018-02-27] MEDS: ATORVASTATIN CA 40 MG TABLET (FP) PO SCH (21:40)
[2018-02-28] MEDS: INSULIN SLIDING SCALE (NOVOLOG) 1 VIAL SQ SCH ×2 (06:29→11:53)
[2018-02-28] MEDS: INSULIN (NOVOLOG MIX 70/30) 100 UNITS/ML MDV SQ SCH (06:30)
[2018-02-28] MEDS ORDERED: INSULIN (NOVOLOG MIX 70/30) 100 UNITS/ML MDV SQ ONE (07:41)
[2018-02-28] MEDS: SEVELAMER CARBONATE 800 MG TAB (FP) PO SCH ×2 (08:28→12:26)
--- NOTE | 2018-02-28 09:58 | PN ---
Physical Exam: SUBJECTIVE: Patient seen and examined OBJECTIVE: Vital Signs Period Temp Pulse Resp BP Sys/Martinez Pulse Ox Last 24 Hr 97.3 F-98.4 F 64-73 16-18 132-157/58-76 99 GENERAL: The patient is awake, alert, and fully oriented, in no acute distress. HEAD: Normal with no signs of trauma. EYES: PERRL, extraocular movements intact, sclera anicteric, conjunctiva clear. No ptosis. ENT: Ears normal, nares patent, oropharynx clear without exudates, moist mucous membranes. NECK: Trachea midline, full range of motion, supple. LUNGS: Breath sounds equal, clear to auscultation bilaterally, no wheezes, no crackles, no accessory muscle use. HEART: Regular rate and rhythm, S1, S2 without murmur, rub or gallop. ABDOMEN: Soft, nontender, nondistended, normoactive bowel sounds, no guarding, no rebound, no hepatosplenomegaly, no masses. EXTREMITIES: 2+ pulses, warm, well-perfused, no edema. NEUROLOGICAL: Cranial nerves II through XII grossly intact. Normal speech, gait not observed. PSYCH: Normal mood, normal affect. SKIN: Warm, dry, normal turgor, no rashes or lesions noted Laboratory Results - last 24 hr 02/27/18 02/27/18 02/27/18 11:52 15:41 21:39 POC Glucometer 105 117 164 02/28/18 05:53 POC Glucometer 157 Active Medications Generic Name Dose Route Start Last Admin Trade Name Freq PRN Reason Stop Dose Admin Acetaminophen 650 mg 02/24/18 19:00 Tylenol - PO Q6H PRN FEVER Aspirin 81 mg 02/25/18 10:00 02/27/18 09:32 Asa - PO 81 mg DAILY MARK Administration Atorvastatin Calcium 40 mg 02/24/18 22:00 02/27/18 21:40 Lipitor - PO 40 mg HS MARK Administration Cinacalcet 60 mg 02/25/18 10:00 02/27/18 09:34 Sensipar - PO 60 mg DAILY MARK Administration Clonidine 0.1 mg 02/24/18 22:00 02/27/18 21:40 Catapres - PO 0.1 mg BID MARK Administration Clopidogrel Bisulfate 75 mg 02/24/18 18:30 04/22/18 09:32 Plavix - PO 75 mg DAILY MARK Administration Collagenase 1 applic 02/25/18 10:00 02/27/18 11:25 Santyl - TP 1 applic DAILY MARK Administration Epoetin Lenny 10,000 unit 02/28/18 09:50 Procrit - SQ 02/28/18 09:51 ONCE ONE Fentanyl 25 mcg 02/24/18 19:00 Sublimaze Injection - IVPUSH [id number] PRN PAIN-PACU ORDER X 4 DOSES ONLY Heparin Sodium (Porcine) 5,000 unit 02/24/18 22:00 02/27/18 21:48 Heparin - SQ Not Given BID MARK Heparin Sodium (Porcine) 1,000 unit 02/28/18 09:50 Heparin - IVPUSH 02/28/18 09:51 ONCE ONE Ceftazidime/Avibactam 0.94 gm/ 100 mls @ 50 mls/hr 02/25/18 12:00 02/25/18 17 :33 Dextrose IVPB 50 mls/hr MoWeFr@1200 MARK Administration Sodium Chloride 250 mls @ 3,000 mls/hr 02/28/18 09:50 Normal Saline - IV 03/01/18 09:50 PRN PRN Hypotension during Dialysis Insulin Aspart 20 units 02/25/18 07:00 02/28/18 06:30 Novolog Mix 70/30 Vial SQ 20 units BIDAC MARK Administration Insulin Aspart 1 vial 02/24/18 22:00 02/28/18 06:29 Novolog Vial Sliding Scale - SQ 2 units ACHS MARK Administration Protocol Lactic Acid 1 applic 02/24/18 19:00 Lac-Hydrin 12 TP BID PRN WOUND CARE Linezolid 600 mg 02/24/18 22:00 02/27/18 21:44 Zyvox (Restricted To Id) - PO 600 mg BID MARK Administration Metoprolol Tartrate 25 mg 02/24/18 22:00 02/27/18 21:40 Lopressor - PO 25 mg BID MARK Administration Ondansetron HCl 4 mg 02/24/18 19:00 Zofran Injection IVPUSH Q6H PRN NAUSEA AND/OR VOMITING Pantoprazole Sodium 40 mg 02/25/18 10:00 02/27/18 09:33 Protonix - PO 40 mg DAILY MARK Administration Sevelamer Carbonate 2,400 mg 02/25/18 08:15 02/28/18 08:28 Renvela - PO 2,400 mg TIDCM MARK Administration ASSESSMENT/PLAN: 62 year old gentleman with PMhx of PMhx of ESRD on Hd (MWF), Hypertension, DM on insulin, ESBL osteomyelitis, PVD presented with fever and Le blister/lesion and admitted for wound infection. #ESRD on HD #LE wound infection with osteomylitis seen on MRI #Gram negative bacteremia #DM #Hypertension #Anemia (CKD related) s/p dialysis yesterday, no acute indication for dialysis today Renal diet continue Renvela TID with meals s/p repeat blood culture yesterday, on growth as of yet continue abx as per ID following dialysis podiatry follow up and debridement as needed
[2018-02-28] MEDS: HEPARIN NA (PORCINE) 5,000 UNITS/ML 1ML VIAL SQ SCH (10:02)
--- NOTE | 2018-02-28 10:22 | PN ---
Progress Note (short form) - Note Progress Note: Patient seen in bed earlier today. VSS. Tmax 98.1 +dressing intact -mal odor, mixed infection, warm foot, left foot healed, wbc= 9.4 last done 02/25 diabetic wound right pvd om continue Santyl dressing changes daily. PTR to wound care clinic on . patient agrees to debridement tissue in wound care clinic, ivabx, hbo, wound care.will follow till dc. Patient may go home from Podiatry standpoint and have hbo, ivabx, wound care at home. Can go home if ok with ID and medicine. Abx as per ID.
[2018-02-28] MEDS: CLOPIDOGREL BISULFATE 75 MG TABLET (FP) PO SCH (10:26)
[2018-02-28] MEDS: ASPIRIN 81 MG CHEWABLE TABLETS PO SCH (10:26)
[2018-02-28] MEDS: PANTOPRAZOLE 40 MG TABLET (FP) PO SCH (10:26)
[2018-02-28] MEDS: LINEZOLID 600 MG TABLET (RESTRICTED TO ID) PO SCH (10:27)
[2018-02-28] MEDS ORDERED: SODIUM CHLORIDE 250 ML IV PRN (12:00)
[2018-02-28] MEDS ORDERED: HEPARIN NA (PORCINE) 5,000 UNITS/ML 1ML VIAL IVPUSH ONE (12:00)
[2018-02-28] MEDS ORDERED: EPOETIN ALFA 10,000 UNIT/1 ML VIAL SQ ONE (12:00)
--- NOTE | 2018-02-28 12:05 | DS ---
Physical Exam: SUBJECTIVE: Patient seen and examined at bedside. Receiving HD. OBJECTIVE: Vital Signs Period Temp Pulse Resp BP Sys/Martinez Pulse Ox Last 24 Hr 97.3 F-98.4 F 64-88 16-18 101-157/58-79 99 PHYSICAL EXAM GENERAL: The patient is awake, alert, and fully oriented, in no acute distress. LUNGS: Breath sounds equal, clear to auscultation bilaterally, no wheezes, no crackles, no accessory muscle use. HEART: Regular rate and rhythm, S1, S2 ABDOMEN: Soft, nontender, nondistended, normoactive bowel sounds, no guarding, no rebound LOWER EXTREMITIES: Both feet exposed. Left Charcot foot, mid-plantar surface wound nonstageable; right foot two large diabetic wounds, first on lateral side , second at site of 4th and 5th (amputated) toes, malodorous, heavy slough NEUROLOGICAL: Cranial nerves II through XII grossly intact. Normal speech, gait not observed. LABS WBC 7.2 K/mm3 (4.0-10.0) 02/28/18 12:00 RBC 3.05 M/mm3 (4.00-5.60) L 02/28/18 12:00 Hgb 8.8 GM/dL (11.7-16.9) L 02/28/18 12:00 Hct 26.7 % (35.4-49) L 02/28/18 12:00 MCV 87.5 fl (80-96) 02/28/18 12:00 MCHC 32.8 g/dl (32.0-35.9) 02/28/18 12:00 RDW 15.6 % (11.9-15.9) 02/28/18 12:00 Plt Count 218 K/MM3 (134-434) D 02/28/18 12:00 MPV 9.2 fl (7.5-11.1) 02/28/18 12:00 CMP Sodium 136 mmol/L (136-145) 02/28/18 09:59 Potassium 4.6 mmol/L (3.5-5.1) 02/28/18 09:59 Chloride 99 mmol/L (98-107) 02/28/18 09:59 Carbon Dioxide 28 mmol/L (21-32) 02/28/18 09:59 Anion Gap 9 (8-16) 02/28/18 09:59 BUN 43 mg/dL (7-18) H D 02/28/18 09:59 Creatinine 9.6 mg/dL (0.7-1.3) H* D 02/28/18 09:59 Creat Clearance w eGFR 5.60 (>60) 02/28/18 09:59 Calcium 7.1 mg/dL (8.5-10.1) L 02/28/18 09:59 Total Bilirubin 0.6 mg/dL (0.2-1.0) 02/28/18 09:59 AST 13 U/L (15-37) L D 02/28/18 09:59 ALT 14 U/L (12-78) 02/28/18 09:59 Alkaline Phosphatase 106 U/L (45-117) 02/28/18 09:59 Total Protein 6.9 g/dl (6.4-8.2) 02/28/18 09:59 Albumin 2.2 g/dl (3.4-5.0) L 02/28/18 09:59 HOSPITAL COURSE: Date of Admission:02/19/18 Date of Discharge: 02/28/18 62 year old gentleman with PMH significant for HTN, NSVT, PSVT, ESRD on HD (MWF) , osteomyelitis, and PVD. Presented with fever and lower extremity blister/ lesion and admitted for wound infection. ESRD on HD --HD today Klebsiella bacteremia --carbapenem resistant --continue ceftazadime/avibactam 0.94g M, W, F after dialysis --PICC line in situ --script sent to [facility] --follow up outpatient with Dr. Hollingsworth Foot wound Osteomyelitis s/p RLE anterior tibial artery atherectomy with angioplasty --continue ceftazadime/avibactam, linezolid (VRE) --collagenase daily --will be followed in Wound Clinic by Dr. Higuera --continue ASA, Plavix IDDM --Novolog sliding scale coverage while inpatient Hypertension PSVT NSVT --continued metoprolol BID, clonidine BID Hyperlipidemia --continued Lipitor Minutes to complete discharge: 35 Discharge Summary Reason For Visit: SEPSIS ULCER OF FOOT DIABETES MELLITUS Current Active Problems Diabetes (Acute) Dialysis patient (Acute) ESRD (end stage renal disease) (Acute) Elevated troponin I measurement (Acute) Foot ulcer due to secondary DM (Acute) HTN (hypertension) (Acute) NSVT (nonsustained ventricular tachycardia) (Acute) PSVT (paroxysmal supraventricular tachycardia) (Acute) Sepsis (Acute) Condition: Improved - Instructions Diet, Activity, Other Instructions: You are to follow up with Dr. Higuera on at the Wound Care Clinic. You will continue to take antibiotics at home: 1. Linezolid: this antibiotic comes in pill form; a prescription has been sent to your [facility] pharmacy; you have been prescribed a 30-day supply; 2. Ceftazadime/Avibactam: this antibiotic comes in IV form; 12 doses have been ordered from [facility]. A prescription has also been sent to your pharmacy for collagenase for daily wound care. You should go to your next regularly scheduled dialysis session on Wednesday. You should follow up with Dr. Jauregui and with Dr. Hollingsworth. Their contact information is enclosed. Referrals: Momo Hollingsworth MD [Staff Physician] - 2 Weeks Jameel Jauregui MD [Primary Care Provider] - 2 Weeks Everette Higuera DPM [Staff Physician] - 03/03/18 10:00 am Disposition: HOME - Home Medications Comprehensive Discharge Medication List: Ambulatory Orders Cinacalcet HCl [Sensipar] 60 mg PO DAILY 09/28/14 Hum Insulin NPH/Reg Insulin Hm [Novolin 70-30 U100 Cartridge] 40 unit SQ BID Aspirin [ASA -] 81 mg PO DAILY #30 tab.chew 10/03/14 Atorvastatin Ca [Lipitor] 40 mg PO HS #30 tablet 10/03/14 cloNIDine HCL [Catapres -] 0.1 mg PO BID #60 tablet 10/03/14 Metoclopramide HCl [Reglan] 5 mg PO TID #0 tablet 04/28/16 Pantoprazole Sodium [Protonix] 40 mg PO DAILY #0 tablet. 04/28/16 Sevelamer Carbonate [Renvela -] 2,400 mg PO TID 04/28/16 Ammonium Lactate Lotion [Lac-Hydrin 12] 1 applic TP BID PRN bottle 02/08/18 This patient is new to me today: Yes Date on this admission: 02/28/18 Emergency Visit: Yes ED Registration Date: 02/19/18 Care time: The patient presented to the Emergency Department on the above date and was hospitalized for further evaluation of their emergent condition. Critical Care patient: No - Discharge Referral Referred to [facility] No
[2018-02-28 12:08] LABS: BASO % 0.6 % (0-2.0); EOS % 1.7 % (0-4.5); HEMATOCRIT 26.7 % (35.4-49); HEMOGLOBIN 8.8 GM/dL (11.7-16.9); LYMPH % 22.4 % (8-40); MCH 28.7 pg (25.7-33.7); MCHC 32.8 g/dl (32.0-35.9); MEAN CELL VOLUME 87.5 fl (80-96); MEAN PLT VOLUME 9.2 fl (7.5-11.1); MONO % 9.5 % (3.8-10.2); NEUT % 65.8 % (42.8-82.8); PLATELET COUNT 218 K/MM3 (134-434); RBC 3.05 M/mm3 (4.00-5.60); RDW 15.6 % (11.9-15.9); WHITE BLOOD COUNT 7.2 K/mm3 (4.0-10.0)
[2018-02-28] MEDS: CEFTAZIDIME/AVIBACTAM 0.94 GM in DEXTROSE 5%-WATER - 100 ML IVPB SCH (12:25)
--- NOTE | 2018-02-28 12:27 | PN ---
Progress Note, Physician History of Present Illness: patient doing well dressing removed wounds looked podiatry planning to take the patient to the or - Current Medication List Current Medications: Active Medications Acetaminophen (Tylenol -) 650 mg PO Q6H PRN PRN Reason: FEVER Aspirin (Asa -) 81 mg PO DAILY [facility] Last Admin: 02/28/18 10:26 Dose: 81 mg Atorvastatin Calcium (Lipitor -) 40 mg PO HS [facility] Last Admin: 02/27/18 21:40 Dose: 40 mg Cinacalcet (Sensipar -) 60 mg PO DAILY [facility] Last Admin: 02/27/18 09:34 Dose: 60 mg Clonidine (Catapres -) 0.1 mg PO BID [facility] Last Admin: 02/27/18 21:40 Dose: 0.1 mg Clopidogrel Bisulfate (Plavix -) 75 mg PO DAILY [facility] Last Admin: 02/28/18 10:26 Dose: 75 mg Collagenase (Santyl -) 1 applic TP DAILY [facility] Last Admin: 02/27/18 11:25 Dose: 1 applic Fentanyl (Sublimaze Injection -) 25 mcg IVPUSH [id number] PRN PRN Reason: PAIN-PACU ORDER X 4 DOSES ONLY Heparin Sodium (Porcine) (Heparin -) 5,000 unit SQ BID [facility] Last Admin: 02/27/18 21:48 Dose: Not Given Ceftazidime/Avibactam 0.94 gm/ (Dextrose) 100 mls @ 50 mls/hr IVPB MoWeFr@1200 [facility] Last Admin: 02/28/18 12:25 Dose: 50 mls/hr Sodium Chloride (Normal Saline -) 250 mls @ 3,000 mls/hr IV PRN PRN PRN Reason: Hypotension during Dialysis Stop: 03/01/18 11:59 Insulin Aspart (Novolog Mix 70/30 Vial) 20 units SQ BIDAC [facility] Last Admin: 02/28/18 06:30 Dose: 20 units Insulin Aspart (Novolog Vial Sliding Scale -) 1 vial SQ ACHS [facility] PRN Reason: Protocol Last Admin: 02/28/18 11:53 Dose: Not Given Lactic Acid (Lac-Hydrin 12) 1 applic TP BID PRN PRN Reason: WOUND CARE Linezolid (Zyvox (Restricted To Id) -) 600 mg PO BID [facility] Last Admin: 02/28/18 10:27 Dose: 600 mg Metoprolol Tartrate (Lopressor -) 25 mg PO BID [facility] Last Admin: 02/27/18 21:40 Dose: 25 mg Ondansetron HCl (Zofran Injection) 4 mg IVPUSH Q6H PRN PRN Reason: NAUSEA AND/OR VOMITING Pantoprazole Sodium (Protonix -) 40 mg PO DAILY [facility] Last Admin: 02/28/18 10:26 Dose: 40 mg Sevelamer Carbonate (Renvela -) 2,400 mg PO TIDCM [facility] Last Admin: 02/28/18 12:26 Dose: 2,400 mg - Objective Vital Signs: Vital Signs Temperature 98.4 F 02/28/18 10:55 Pulse Rate 70 02/28/18 12:00 Respiratory Rate 18 02/28/18 12:00 Blood Pressure 153/77 02/28/18 12:00 O2 Sat by Pulse Oximetry (%) 99 02/27/18 21:00 Constitutional: Yes: No Distress, Calm Cardiovascular: Yes: Regular Rate and Rhythm Respiratory: Yes: Regular, CTA Bilaterally Gastrointestinal: Yes: Normal Bowel Sounds, Soft Musculoskeletal: Yes: Other Extremities: Yes: Other Wound/Incision: Yes: Dressing Removed, Other (wounds looked at) Neurological: Yes: Alert, Oriented Psychiatric: Yes: Alert, Oriented Labs: CBC, BMP 02/28/18 12:00 02/27/18 06:05 INR, PTT INR 1.29 (0.82-1.09) H 02/19/18 14:43 Assessment/Plan Problem List - Problems (1) Diabetes Code(s): E11.9 - TYPE 2 DIABETES MELLITUS WITHOUT COMPLICATIONS Qualifiers: Diabetes mellitus hospital coordinator insulin use: unspecified custodial insulin use status Diabetes mellitus complication status: with circulatory complication (2) ESRD (end stage renal disease) Code(s): N18.6 - END STAGE RENAL DISEASE (3) Foot ulcer due to secondary DM Code(s): E13.621 - OTHER SPECIFIED DIABETES MELLITUS WITH FOOT ULCER; L97.509 - NON-PRESSURE CHRONIC ULCER OTH PRT UNSP FOOT W UNSP SEVERITY (4) HTN (hypertension) Code(s): I10 - ESSENTIAL (PRIMARY) HYPERTENSION (5) Cellulitis Code(s): L03.90 - CELLULITIS, UNSPECIFIED Qualifiers: Site of cellulitis: extremity Site of cellulitis of extremity: toe Laterality: right Qualified Code(s): L03.031 - Cellulitis of right toe (6) HLD (hyperlipidemia) Code(s): E78.5 - HYPERLIPIDEMIA, UNSPECIFIED (7) Toe infection Code(s): L08.9 - LOCAL INFECTION OF THE SKIN AND SUBCUTANEOUS TISSUE, UNSP cre resistant kliebsella 9 vre wound infection Assessment/Plan 62 y.o. male with PMH of IDDM, ESRD on HD, HTN, diverticulosis, GERD, CHF, and Rt foot 4th/5th toe transmetarsal amp site nonhealing wound/OM with highly resistant organisms (ESBL klebsiella, VRE) presenting with fever, leukocytosis recently discharged on Tygacil, Rt foot edema. repeat cx negative plan continue current abx will plan the abx course debridement rest as per the team
[2018-02-28 12:41] LABS: ALBUMIN 2.2 g/dl (3.4-5.0); ANION GAP 9 (8-16); BILIRUBIN,TOTAL 0.6 mg/dL (0.2-1.0); BLOOD UREA NITROGEN 43 mg/dL (7-18); CALCIUM 7.1 mg/dL (8.5-10.1); CHLORIDE 99 mmol/L (98-107); CO2 28 mmol/L (21-32); GLUCOSE,RANDOM 73 mg/dL (74-106); MAGNESIUM 2.2 mg/dL (1.8-2.4); POTASSIUM 4.6 mmol/L (3.5-5.1); SGOT/AST 13 U/L (15-37); SGPT/ALT 14 U/L (12-78); SODIUM 136 mmol/L (136-145); TOT PROT 6.9 g/dl (6.4-8.2)
[2018-02-28 12:46] LABS: ALK PHOS 106 U/L (45-117)
[2018-02-28 12:49] LABS: CREATININE 9.6 mg/dL (0.7-1.3)
[2018-02-28 13:56] VITALS: TEMP 98.1
[2018-02-28] MEDS: COLLAGENASE CLOSTRIDIUM HIST. 30 GRAMS TUBE TP SCH (14:03)
[2018-02-28 15:09] VITALS: BP 143/77; PULSE 691
[2018-02-28] MEDS: cloNIDine HCL 0.1 MG TABLET PO SCH (16:02)
[2018-02-28] MEDS: CINACALCET HCL 30 MG TAB (FP) PO SCH (16:02)
[2018-02-28] MEDS: METOPROLOL TARTRATE 25 MG TABLET (FP) PO SCH (16:02)
--- NOTE | 2018-02-28 18:15 | PN ---
Progress Note (short form) - Note Progress Note: Renal follow up for ESRD on HD Pt seen and examined during dialysis BP stable, goal UF is 4L AVF with good flow to get Abx post HD Vital Signs Temperature 98.1 F 02/28/18 13:53 Pulse Rate 691 H 02/28/18 15:05 Respiratory Rate 18 02/28/18 15:05 Blood Pressure 143/77 02/28/18 15:05 O2 Sat by Pulse Oximetry (%) 99 02/28/18 09:00 Intake & Output 02/25/18 02/26/18 02/27/18 02/28/18 23:59 23:59 23:59 23:59 Intake Total 350 880 890 700 Output Total 0 0 200 1 Balance 350 880 690 699 Weight 129.898 kg 131.088 kg 132.562 kg NAD MMM, NO JVD CTA 1+ LE edema d/l feet in dressing CBC, BMP 02/28/18 12:00 02/28/18 09:59 62 year old gentleman with PMhx of PMhx of ESRD on Hd (MWF), Hypertension, DM on insulin, ESBL osteomyelitis, PVD presented with fever and Le blister/lesion and admitted for wound infection. #ESRD on HD #LE wound infection with osteomylitis seen on MRI #Gram negative bacteremia #DM #Hypertension #Anemia (CKD related) Tolerating dialysis well Repeat blood cultures w/o growth to get Ceftazidine/Avibactum with HD as inpatient but is not aviliable as a outpatient Will resume Daptomycin with HD x 3 more weeks as recommend by ID when i discussed the case with them Follow up with podiatry as a outpatient wound care Meet Pedro DO
--- NOTE | 2018-03-02 11:08 | OP ---
DATE OF OPERATION: 02/24/2018 PREOPERATIVE DIAGNOSIS: Right foot gangrene. POSTOPERATIVE DIAGNOSIS: Right foot gangrene. PROCEDURE: Aortogram, right lower extremity angiogram, anterior tibial artery atherectomy with angioplasty. FINDINGS: Anterior artery occlusion/stenosis. SURGEON: Lui Garner MD ANESTHESIA: Fractional. BLOOD LOSS: 50 mL. INDICATIONS: The patient is a 62-year-old male who comes in with gangrene of his 3rd, 4th, and 5th toes. It was decided that he would need an angiogram prior to getting amputation by podiatry. Patient was consented for the procedure understanding all risks, benefits, and alternatives and then taken to the operating room. PROCEDURE IN DETAIL: Once in the operating room, he was placed on the operating table in the supine manner, and the area of the right and left groin were prepped and draped in the sterile surgical manner. We then injected 10 mL of lidocaine 1% over the left common femoral artery. We then used a micropuncture needle and punctured the left common femoral artery. A micropuncture wire was inserted. A traditional 5-Chadian sheath was inserted. We then placed a 0.035 floppy guidewire up into the aorta followed by an Omniflush catheter. We shot an angiogram by hand injection showing that the aorta and the iliac arteries were without any disease. We then placed a 0.035 floppy guidewire up and over to the right common femoral artery, and our Omniflush catheter followed. We then shot an angiogram of the right lower extremity showing that the common femoral artery, the profunda, and ESFA were patent. Popliteal artery was patent. The anterior tibial artery had areas of stenosis of 80% to 90% of multiple tandem lesions, and that was the main runoff into the foot. At this point, we decided that the patient would need atherectomy. We went ahead and placed a 0.035 stiff guidewire into the SFA. We moved our Omniflush catheter, placed a 6 x 45 crossover sheath, 5000 units of IV heparin were administered to the patient. We then placed a wire down into the popliteal artery followed by a Quick-Cross catheter, and we were then able to place the wire into the anterior tibial artery and cross the occlusions. We then exchanged for a ViperWire. We then went ahead and used a [facility] Orbital Atherectomy Device and performed atherectomy of the anterior tibial artery in the proximal to mid portion. We then went ahead and used a 2.5 x 10 balloon and performed angioplasty of the same area. Completion angiogram now showed the anterior tibial artery was patent without any recoil of the lesions, and there was good brisk flow to the forefoot. Patient had a good palpable pulse in the foot. At this point, we decided no more intervention was needed. We brought our sheath up and over, and StarClose Device was successfully deployed in the left common femoral artery. Pressure was held for 5 minutes; after that, there was no bleeding. The area was wet and dried, and Dermabond was placed. The patient tolerated the procedure with no complications. Patient transferred to PACU in stable condition. LUI GARNER DO [id number]
== END 2018-02-28 17:04 | disposition home or self-care (01) | DRG 853 ==
LOC: JER 13:18 → JERBED 16:36 → J4S 20:31
PROVIDERS: ADMIT Internal Medicine; ATTEND Nurse Practitioner Acute Care
PROC: 047 Lower Arteries, Dilation (ICD-10-PCS; 2018-02-24)
PROC: B41FYZZ Fluoroscopy of Right Lower Extremity Arteries using Other Contrast (ICD-10-PCS; 2018-02-24)
PROC: B41DYZZ Fluoroscopy of Aorta and Bilateral Lower Extremity Arteries using Other Contrast (ICD-10-PCS; 2018-02-24)
PROC: 04CP0ZZ Extirpation of Matter from Right Anterior Tibial Artery, Open Approach (ICD-10-PCS; principal; 2018-02-24 15:00)
DX: A41.9 Sepsis, unspecified organism (principal); N18.6 End stage renal disease; I13.2 Hypertensive heart and chronic kidney disease with heart failure and with stage 5 chronic kidney disease, or end stage renal disease; I50.32 Chronic diastolic (congestive) heart failure; I47.1 Supraventricular tachycardia; L97.516 Non-pressure chronic ulcer of other part of right foot with bone involvement without evidence of necrosis; M86.8X7 Other osteomyelitis, ankle and foot; E11.52 Type 2 diabetes mellitus with diabetic peripheral angiopathy with gangrene; I96 Gangrene, not elsewhere classified; E11.621 Type 2 diabetes mellitus with foot ulcer; E11.22 Type 2 diabetes mellitus with diabetic chronic kidney disease; Z99.2 Dependence on renal dialysis; E66.9 Obesity, unspecified; Z68.38 Body mass index [BMI] 38.0-38.9, adult; D64.9 Anemia, unspecified; Z89.421 Acquired absence of other right toe(s); K57.90 Diverticulosis of intestine, part unspecified, without perforation or abscess without bleeding; K21.9 Gastro-esophageal reflux disease without esophagitis; D63.1 Anemia in chronic kidney disease; E11.51 Type 2 diabetes mellitus with diabetic peripheral angiopathy without gangrene; I70.291 Other atherosclerosis of native arteries of extremities, right leg; Z79.4 Long term (current) use of insulin; E11.69 Type 2 diabetes mellitus with other specified complication
CPT/HCPCS: 36415; 71045-TC-FY; 73630-TC-RT-FY; 73700-TC-RT; 73718-TC; 76000-TC-FY; 80048; 80053; 80061; 82565; 82962; 83605; 83721; 83735; 84100; 84484; 84520; 85025; 85027; 85610; 85651; 85730; 86140; 86704; 86706; 86708; 87040; 87070; 87186; 87205; 87340; 93005; 93010; 93306-TC; 94760; 99285-25; J0735; J0885; J1644; J3243; J7030

== ENCOUNTER → 2018-05-06 | Day surgery (SDC) | payer OTHER | END | disposition home or self-care (01) | LOC: JRADIR 10:58 | PROVIDERS: ATTEND Internal Medicine | PROC: 05PY03Z Removal of Infusion Device from Upper Vein, Open Approach (ICD-10-PCS; principal; 2018-05-06) | DX: Z45.2 Encounter for adjustment and management of vascular access device (principal) | CPT/HCPCS: 36589 ==

== ENCOUNTER 2019-12-08 10:40 | Inpatient (IN) | payer OTHER ==
--- NOTE | 2019-12-08 10:51 | PDOC ---
History of Present Illness - General Chief Complaint: Tachycardia Stated Complaint: TACHYCARDIA Time Seen by Provider: 12/08/19 10:50 History Source: Patient Exam Limitations: No Limitations - History of Present Illness Initial Comments: 12/08/19 10:54 64yM w PMHx ESRD on Hd (MWF), obesity, nonsustained/parxysmal SVT, HTN, IDDM, ESBL osteomyelitis, PVD presenting w fever, tachycardia, body aches starting yesterday. Been having 3-5 episodes of diarrhea ongoing for past month. Had paroxysmal SVT in past in setting of infection, denies having a fib. Does not make urine. Denies cough, nasal congestion, chest pain, SOB, AB pain. Past History - Past Medical History Allergies/Adverse Reactions: Allergies Allergy/AdvReac Type Severity Reaction Status Date / Time Pork/Porcine Containing Allergy Verified 12/08/19 10:51 Products Home Medications: Ambulatory Orders Cinacalcet HCl [Sensipar] 60 mg PO DAILY 09/28/14 Hum Insulin NPH/Reg Insulin Hm [Novolin 70-30 U100 Cartridge] 40 unit SQ BID Atorvastatin Ca [Lipitor] 40 mg PO HS #30 tablet 10/03/14 cloNIDine HCL [Catapres -] 0.1 mg PO BID #60 tablet 10/03/14 Metoclopramide HCl [Reglan] 5 mg PO TID #0 tablet 04/28/16 Pantoprazole Sodium [Protonix] 40 mg PO DAILY #0 tablet. 04/28/16 Sevelamer Carbonate [Renvela -] 2,400 mg PO TID 04/28/16 Ammonium Lactate Lotion [Lac-Hydrin 12] 1 applic TP BID PRN bottle 02/08/18 Metoprolol Tartrate [Lopressor -] 25 mg PO BID tablet 02/28/18 Clopidogrel Bisulfate [Plavix] 75 mg PO DAILY #30 tablet 08/19/18 Anemia: Yes Asthma: No Cancer: No Cardiac Disorders: No CVA: No COPD: No CHF: No DVT: No Dementia: No Diabetes: Yes Dialysis: Yes GI Disorders: Yes (DIVERTICULOSIS, COLON POLYPS, GERD) Disorders: No (ESRD ON DIALYSIS M- W- F) HTN: Yes Hypercholesterolemia: Yes Liver Disease: Yes (ELEVATED LIVER ENZYMES) Seizures: No Thyroid Disease: No - Surgical History Abdominal Surgery: No Appendectomy: No Cardiac Surgery: No Cholecystectomy: No Lung Surgery: No Neurologic Surgery: No Orthopedic Surgery: Yes (ROTATOR CUFF REPAIR L SHOULDER) - Immunization History Immunization Up to Date: Yes - Psycho Social/Smoking Cessation Hx Smoking History: Never smoked Have you smoked in the past 12 months: No Number of Cigarettes Smoked Daily: 0 Cigars Per Day: 0 Hx Alcohol Use: No Drug/Substance Use Hx: No Substance Use Type: None Hx Substance Use Treatment: No ED Treatment Course - LABORATORY CBC & Chemistry Diagram: 12/08/19 11:15 12/08/19 11:15 Medical Decision Making - Medical Decision Making 12/08/19 11:17 WBC 14 w left shift CXR clear lung goss EKG shows a fib with RVR, HR 144, QTc 452, no ST changes --- 64yM w PMHx ESRD on Hd (MWF), obesity, nonsustained/parxysmal SVT, HTN, IDDM, ESBL osteomyelitis, PVD presenting w 1d fever, tachycardia, body aches and 1mo diarrhea. Missed dialysis session this morning d/t fever and tachycardia concerns. Bacteremia vs endocarditis. Low concern for PNA (clear CXR) Has hyperkalemia K 6.2. Also has new onset a fib w RVR Given tylenol, toradol, vanc, 1 Mg, 5mg lopressor x1 Consulted nephrology Dr Pedro, agrees with plan. Advise rate control if HR still elevated Admitted tele Dr Wilson for hyperkalemia requiring dialysis, a fib w RVR - placed consults for Dr Edel RIVERS, Dr Flores cards Discharge - Discharge Information Problems reviewed: Yes Clinical Impression/Diagnosis: Hyperkalemia, ESRD (end stage renal disease), Atrial fibrillation with rapid ventricular response Condition: Stable - Follow up/Referral - Patient Discharge Instructions - Post Discharge Activity
[2019-12-08 10:52] VITALS: BMI 38.0
--- NOTE | 2019-12-08 10:53 | PDOC ---
Attending Attestation - Resident Resident Name: Alan Diaz - HPI HPI: 12/08/19 18:43 pt presents to the Ed complaining of fever on HD. HD was not completed secondary to fever. complaining of cough productive of yellow sputum. Denies other complaints. - Physicial Exam PE: 12/08/19 18:49 Agree with resident exam. PAtient is alert and oriented and in no acute distress. Lungs are clear Heart has regular rate and rhythm, abdomen is soft, non tender and non distended. - Medical Decision Making 12/08/19 18:50 Pt presents to the ED complaining of fever on HD. Denies other complaints. Tachycardic on arrival, improved with fever control. Will start broad spectrum antibiotics and admit to medicine for sepsis work up. Dr. Pedro contacted and will dialyse the patient.
[2019-12-08] MEDS ORDERED: ACETAMINOPHEN 1000 MG/100 ML VIAL (NON FORMULARY) IVPB ONE (11:07)
[2019-12-08] MEDS ORDERED: ACETAMINOPHEN INJECTION 100 ML IVPB ONE (11:34)
[2019-12-08 11:46] LABS: BASO % 0.7 % (0-2.0); HEMOGLOBIN 13.9 GM/dL (11.7-16.9); MCH 29.2 pg (25.7-33.7); MCHC 33.2 g/dl (32.0-35.9); MEAN PLT VOLUME 10.1 fl (7.5-11.1); NEUT % 91.3 % (42.8-82.8); PLATELET COUNT 124 K/MM3 (134-434); RBC 4.77 M/mm3 (4.00-5.60); RDW 15.4 % (11.9-15.9)
[2019-12-08 12:22] LABS: ALBUMIN 3.6 g/dl (3.4-5.0); BILIRUBIN,TOTAL 1.1 mg/dL (0.2-1); BLOOD UREA NITROGEN 39.4 mg/dL (7-18); CALCIUM 9.7 mg/dL (8.5-10.1); TOT PROT 7.8 g/dl (6.4-8.2)
[2019-12-08 12:26] LABS: PLATELET ESTIMATE SLT DECREASE
[2019-12-08 12:31] LABS: CREATININE 8.7 mg/dL (0.55-1.3); POTASSIUM 6.2 mmol/L (3.5-5.1)
[2019-12-08] MEDS ORDERED: KETOROLAC TROMETHAMINE 30 MG/1 ML VIAL IVPUSH ONE (13:04)
[2019-12-08] MEDS ORDERED: MAGNESIUM SULF 50% (8.12 MEQ/2 ML-1 GM VIAL) IVPB ONE (13:06)
[2019-12-08] MEDS ORDERED: VANCOMYCIN 1 GM in D5W (PRE-DOCKED) 1,000 MG/250 ML IVPB ONE (13:11)
[2019-12-08] MEDS ORDERED: SODIUM CHLORIDE 250 ML IV PRN (13:28)
--- NOTE | 2019-12-08 13:28 | CONSULT ---
Consult - text type - Consultation Consultation Note: Renal consult for ESRD on HD This is a 64 year old gentleman with history of ESRD on HD (MWF), DM, PVD Osteomylitis, hx of SVT/PSVT who presented from the dialysis center with fever and tachycardia. Pt starts that he has had a temperature since yesterday evening. Denies any cough, chills, sputum production, shortness of breath, abdominal pain, chest pain or headache. Pt last had dialysis on Wednesday. Denies any palpitations. PMHx: as above Allergies: Pork/porcine Family Hx: NC Social Hx: No T/A/D ROS: as per HPI Home Medications Medication Instructions Recorded Cinacalcet HCl [Sensipar] 60 mg PO DAILY 09/28/14 Hum Insulin NPH/Reg Insulin Hm 40 unit SQ BID 09/28/14 [Novolin 70-30 U100 Cartridge] Atorvastatin Ca [Lipitor] 40 mg PO HS #30 tablet 10/03/14 cloNIDine HCL [Catapres -] 0.1 mg PO BID #60 tablet 10/03/14 Metoclopramide HCl [Reglan] 5 mg PO TID #0 tablet 04/28/16 Pantoprazole Sodium [Protonix] 40 mg PO DAILY #0 tablet. 04/28/16 Sevelamer Carbonate [Renvela -] 2,400 mg PO TID 04/28/16 Ammonium Lactate Lotion 1 applic TP BID PRN bottle 02/08/18 [Lac-Hydrin 12] Metoprolol Tartrate [Lopressor -] 25 mg PO BID tablet 02/28/18 Clopidogrel Bisulfate [Plavix] 75 mg PO DAILY #30 tablet 08/19/18 Vital Signs Temperature 102.5 F H 12/08/19 12:46 Pulse Rate 153 H 12/08/19 12:46 Respiratory Rate 18 12/08/19 12:46 Blood Pressure 124/91 12/08/19 12:46 O2 Sat by Pulse Oximetry (%) 95 12/08/19 12:46 Intake & Output 12/05/19 12/06/19 12/07/19 12/08/19 23:59 23:59 23:59 23:59 Weight 127.006 kg NAD awake and alert necks supple, no JVD tachycardic, no M/R Dec BS at lung bases, no rales soft NT/ND, Obese, no rebound or guarding no LE edema, cyanosis no focal neurologic deficits CBC, BMP 12/08/19 11:15 12/08/19 11:15 64 year old gentleman with history of ESRD on HD (MWF), DM, PVD Osteomylitis, hx of SVT/PSVT who presented from the dialysis center with fever and tachycardia. 1. Fever (Influenza negative, CXR w/o infiltrates) 2. Hyperkalemia 3. Tachycardia 4. ESRD on HD 5. DM 6. Hypertension Empiric antibioitcs as per ER. Blood cultures collected. Will give additional Vancomycin 500mg IVPB after dialysis. Consider ID consult. Consider Imaging studies of the Abdomen and pelvis to r/o GI pathology Will give Kayexalae 30g P0 x 1 in the ER for hyperkalemia Monitor HR with fever control Cardiology consult Will arrange for dialysis on Tele continue sliding scale insulin Continue clonidine and metoprolol for hypertension Thank you Meet Pedro DO
[2019-12-08] MEDS ORDERED: METOPROLOL TARTRATE 5 MG/5 ML VIAL IVPUSH ONE (13:38)
[2019-12-08] MEDS ORDERED: KETOROLAC TROMETHAMINE 30 MG/1 ML VIAL ONE (13:46)
[2019-12-08] MEDS ORDERED: SODIUM POLYSTYRENE SULFONATE 15 GM/60 ML BOTTLE PO ONE (14:15)
[2019-12-08] MEDS ORDERED: METOPROLOL TARTRATE 5 MG/5 ML VIAL ONE (14:21)
--- NOTE | 2019-12-08 14:59 | EKG ---
Test Reason : Blood Pressure : / mmHG Vent. Rate : 144 BPM Atrial Rate : 104 BPM P-R Int : 000 ms QRS Dur : 090 ms QT Int : 292 ms P-R-T Axes : 000 -52 046 degrees QTc Int : 452 ms ATRIAL FIBRILLATION WITH RAPID VENTRICULAR RESPONSE LEFT AXIS DEVIATION POSSIBLE ANTERIOR INFARCT , AGE UNDETERMINED ABNORMAL ECG Confirmed by ALYSHA MORENO MD ([id number]) on 12/08/2019 2:58:54 PM Referred By: Confirmed By:ALYSHA MORENO MD
--- NOTE | 2019-12-08 16:13 | CON.CARD ---
Consult Consult Specialty:: cardiology Reason for Consultation:: Hx PSVT; ? new onset AF - History of Present Illness Chief Complaint: Pt A&Ox3; no palpitations, chest pain, dizziness. History of Present Illness: 64yM w PMHx ESRD on Hd (MWF), obesity, nonsustained/paroxysmal SVT, HTN, diastolic CHF, IDDM, ESBL osteomyelitis/s/p right 5th toe amputation, PVD, obesity, ?sleep apnea, presenting w fever, tachycardia, body aches starting yesterday. Been having 3-5 episodes of diarrhea ongoing for past month. Had paroxysmal SVT in past in setting of infection, denies having a fib. Does not make urine. Denies cough, nasal congestion, chest pain, SOB, AB pain. - History Source History Provided By: Patient, Family Member (son), Medical Record Limitations to Obtaining History: No Limitations - Past Medical History Cardio/Vascular: Yes: CHF, HTN, Other Renal/: Yes: Renal Failure Infectious Disease: Yes: Other (osteomyelitis) Endocrine: Yes: Diabetes Mellitus - Past Surgical History Past Surgical History: Yes: Amputation (right 5th toe), AV Fistula/Graft - Alcohol/Substance Use Hx Alcohol Use: No - Smoking History Smoking history: Never smoked Have you smoked in the past 12 months: No Aproximately how many cigarettes per day: 0 Home Medications - Allergies Allergies/Adverse Reactions: Allergies Allergy/AdvReac Type Severity Reaction Status Date / Time Pork/Porcine Containing Allergy Verified 12/08/19 10:51 Products - Home Medications Home Medications: Ambulatory Orders Cinacalcet HCl [Sensipar] 60 mg PO DAILY 09/28/14 Hum Insulin NPH/Reg Insulin Hm [Novolin 70-30 U100 Cartridge] 40 unit SQ BID Atorvastatin Ca [Lipitor] 40 mg PO HS #30 tablet 10/03/14 cloNIDine HCL [Catapres -] 0.1 mg PO BID #60 tablet 10/03/14 Metoclopramide HCl [Reglan] 5 mg PO TID #0 tablet 04/28/16 Pantoprazole Sodium [Protonix] 40 mg PO DAILY #0 tablet. 04/28/16 Sevelamer Carbonate [Renvela -] 2,400 mg PO TID 04/28/16 Ammonium Lactate Lotion [Lac-Hydrin 12] 1 applic TP BID PRN bottle 02/08/18 Metoprolol Tartrate [Lopressor -] 25 mg PO BID tablet 02/28/18 Clopidogrel Bisulfate [Plavix] 75 mg PO DAILY #30 tablet 08/19/18 Family Medical History Family History: Denies Review of Systems - Review of Systems Constitutional: reports: Weakness Eyes: reports: No Symptoms HENT: reports: No Symptoms Neck: reports: No Symptoms Cardiovascular: denies: Chest Pain Respiratory: reports: Exercise Intolerance Gastrointestinal: denies: Rectal Bleeding Genitourinary: reports: Other Breasts: reports: No Symptoms Reported Musculoskeletal: reports: Back Pain, Muscle Weakness Integumentary: reports: No Symptoms Neurological: reports: Weakness Endocrine: reports: No Symptoms Hematology/Lymphatic: reports: No Symptoms Psychiatric: reports: No Symptoms - Risk Factors Known Risk Factors: Yes: Age, Diabetes Mellitus, Gender, Hypercholesterolemia, Hypertension, Physical Inactivity, Other (ESRD; CHF) Vital Signs: Vital Signs Temperature 97.2 F L 12/08/19 15:47 Pulse Rate 117 H 12/08/19 15:47 Respiratory Rate 23 H 12/08/19 15:47 Blood Pressure 108/65 12/08/19 15:47 O2 Sat by Pulse Oximetry (%) 97 12/08/19 15:47 Constitutional: Yes: Calm, Obese Eyes: Yes: WNL HENT: Yes: WNL Neck: Yes: WNL Respiratory: Yes: Regular Gastrointestinal: Yes: Soft, Abdomen, Obese Renal/: No: Anuria Cardiovascular: Yes: Pulse Irregular Heart Sounds: Yes: S1 (varies in intensity), S2 Murmur: Yes: Systolic Murmur, Grade 2 Musculoskeletal: Yes: Muscle Weakness Extremities: Yes: Amputation (right 5th toe), Cool Edema: Yes Edema: LLE: Trace, RLE: Trace Peripheral Pulses WNL: Yes Integumentary: Yes: Venous Stasis Changes Neurological: Yes: Alert, Oriented, Weakness Psychiatric: Yes: Alert, Oriented - Other Data Labs, Other Data: CBC, BMP 12/08/19 11:15 12/08/19 11:15 Echo: Report Reviewed Imaging - Results Chest X-ray: Image Reviewed EKG: Image Reviewed Problem List - Problems (1) New onset atrial fibrillation Assessment/Plan: EKG: AF with RVR. Pt has no prior hx of AF. ECHO: 2018: mild-moderately reduced LVEF (40-45%); moderae LAE. Plan: Start metoprolol tartrate 12.5 mg bid (increase as tolerated by BP and HR).for AF HR control, systolic CHF, and BP. Pt says he has been on Clonidine 0.1 bid; last dose was last night (he does not take it on the day of dialysis). It would be better not to be on both metoprolol and clonidine; if BP allows, would plan to titrate off clonidine over the next week and continue metoprolol. Start warfarin (?cannot start IV heparin because pt has a pork allergy: stomach pain, nausea and vomiting; denies rash or trouble breathing). ECHO for LVEF, chamber sizes, valve status. Serial TNI. Telemetry. Code(s): I48.91 - UNSPECIFIED ATRIAL FIBRILLATION (2) Amputated toe of right foot Code(s): S98.131A - COMPLETE TRAUMATIC AMPUTATION OF ONE RIGHT LESSER TOE, INIT (3) Dialysis patient Code(s): Z99.2 - DEPENDENCE ON RENAL DIALYSIS (4) HTN (hypertension) Code(s): I10 - ESSENTIAL (PRIMARY) HYPERTENSION (5) SOB (shortness of breath) Code(s): R06.02 - SHORTNESS OF BREATH (6) Sepsis Code(s): A41.9 - SEPSIS, UNSPECIFIED ORGANISM Qualifiers: Sepsis type: sepsis due to unspecified organism Qualified Code(s): A41.9 - Sepsis, unspecified organism (7) Type 2 diabetes mellitus with foot ulcer Code(s): E11.621 - TYPE 2 DIABETES MELLITUS WITH FOOT ULCER; L97.509 - NON- PRESSURE CHRONIC ULCER OTH PRT UNSP FOOT W UNSP SEVERITY
[2019-12-08] MEDS ORDERED: VANCOMYCIN 500 MG in DEXTROSE 5%-WATER 100 ML IVPB ONE (19:30)
[2019-12-08] MEDS ORDERED: PT OWN MED DRAWER 7, Y5N ONE (19:36)
--- NOTE | 2019-12-08 21:50 | HP ---
Admitting History and Physical - Admission History of Present Illness: Pt is a 64 y/o male w PMH significant for ESRD on Hd (MWF), obesity, nonsustained/parxysmal SVT, HTN, IDDM, ESBL osteomyelitis, PVD presenting w fever, tachycardia, body aches starting yesterday. Been having 3-5 episodes of diarrhea ongoing for past month. Had paroxysmal SVT in past in setting of infection, denies having a fib. Does not make urine. - Past Medical History Cardiovascular: Yes: HTN Renal/: Yes: Renal Failure Heme/Onc: Yes: Anemia Infectious Disease: Yes: Other (osteomyelitis) Endocrine: Yes: Diabetes Mellitus - Smoking History Smoking history: Never smoked Have you smoked in the past 12 months: No Aproximately how many cigarettes per day: 0 - Alcohol/Substance Use Hx Alcohol Use: No Home Medications - Allergies Allergies/Adverse Reactions: Allergies Allergy/AdvReac Type Severity Reaction Status Date / Time Pork/Porcine Containing Allergy Verified 12/08/19 10:51 Products - Home Medications Home Medications: Ambulatory Orders Cinacalcet HCl [Sensipar] 60 mg PO DAILY 09/28/14 Hum Insulin NPH/Reg Insulin Hm [Novolin 70-30 U100 Cartridge] 40 unit SQ BID Atorvastatin Ca [Lipitor] 40 mg PO HS #30 tablet 10/03/14 cloNIDine HCL [Catapres -] 0.1 mg PO BID #60 tablet 10/03/14 Metoclopramide HCl [Reglan] 5 mg PO TID #0 tablet 04/28/16 Pantoprazole Sodium [Protonix] 40 mg PO DAILY #0 tablet. 04/28/16 Sevelamer Carbonate [Renvela -] 2,400 mg PO TID 04/28/16 Ammonium Lactate Lotion [Lac-Hydrin 12] 1 applic TP BID PRN bottle 02/08/18 Metoprolol Tartrate [Lopressor -] 25 mg PO BID tablet 02/28/18 Clopidogrel Bisulfate [Plavix] 75 mg PO DAILY #30 tablet 08/19/18 Family Medical History Family History: Unremarkable Review of Systems - Review of Systems Constitutional: reports: Fever, Lethargy, Weakness Eyes: reports: No Symptoms HENT: reports: No Symptoms Neck: reports: No Symptoms Cardiovascular: reports: Shortness of Breath Respiratory: reports: Cough, SOB Gastrointestinal: reports: Diarrhea Genitourinary: reports: No Symptoms Physical Examination Vital Signs: Vital Signs Temperature 98.8 F 12/08/19 17:40 Pulse Rate 101 H 12/08/19 20:43 Respiratory Rate 18 12/08/19 20:43 Blood Pressure 112/77 12/08/19 20:43 O2 Sat by Pulse Oximetry (%) 96 12/08/19 20:49 Constitutional: Yes: Well Nourished HENT: Yes: WNL Neck: Yes: WNL, Supple Cardiovascular: Yes: Tachycardia, Pulse Irregular Respiratory: Yes: Diminished Gastrointestinal: Yes: WNL, Normal Bowel Sounds, Soft, Abdomen, Obese Edema: Yes Edema: LLE: Trace, RLE: Trace Neurological: Yes: WNL, Alert, Oriented ...Motor Strength: WNL Labs: CBC, BMP 12/08/19 11:15 12/08/19 11:15 Problem List - Problems (1) Sepsis Assessment/Plan: Pt started on IV antibxs Follow cultures ID consult Code(s): A41.9 - SEPSIS, UNSPECIFIED ORGANISM Qualifiers: Sepsis type: sepsis due to unspecified organism Qualified Code(s): A41.9 - Sepsis, unspecified organism (2) New onset atrial fibrillation Assessment/Plan: ?Due to sepsis/fever/Pt is allergic to pork therefore cannot use heparin Also cannot use new AC's meds due to ESRD Will start pt on coumadin and monitor pt/inr Code(s): I48.91 - UNSPECIFIED ATRIAL FIBRILLATION (3) ESRD (end stage renal disease) Assessment/Plan: Pt on dialysis As per renal Code(s): N18.6 - END STAGE RENAL DISEASE (4) Diabetes Assessment/Plan: Cont sliding scale w/ coverage Code(s): E11.9 - TYPE 2 DIABETES MELLITUS WITHOUT COMPLICATIONS Qualifiers: Diabetes mellitus long-term insulin use: unspecified 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
[2019-12-08] MEDS ORDERED: METOPROLOL TARTRATE 25 MG TABLET (FP) PO SCH (22:00)
[2019-12-08] MEDS ORDERED: WARFARIN NA 10 MG TABLET (FP) PO ONE (22:30)
[2019-12-08] MEDS: ATORVASTATIN CA 40 MG TABLET (FP) PO SCH (22:40)
[2019-12-08] MEDS: METOPROLOL TARTRATE 25 MG TABLET (FP) PO SCH (22:40)
[2019-12-08] MEDS: cloNIDine HCL 0.1 MG TABLET PO SCH (22:41)
[2019-12-08] MEDS ORDERED: IBUPROFEN 400 MG TABLET (FP) PO ONE (23:55)
[2019-12-09] MEDS ORDERED: PIPERACILLIN/TAZOBACTAM 3.375 GM VIAL IVPB ONE ×2 (00:52→10:02)
[2019-12-09] MEDS ORDERED: DEXTROSE 5%-WATER - 50 ML IVPB ONE ×3 (00:52→17:23)
[2019-12-09] MEDS: PIPERACILLIN/TAZOB 3.375 GM 3.375 GM in DEXTROSE 5%-WATER - 50 ML IVPB SCH ×4 (01:22→11:51)
[2019-12-09] MEDS ORDERED: IBUPROFEN 400 MG TABLET (FP) PO PRN (01:25)
[2019-12-09] MEDS: INSULIN SLIDING SCALE (NOVOLOG) 1 VIAL SQ SCH ×4 (06:50→22:24)
[2019-12-09] MEDS ORDERED: VANCOMYCIN 1 GM in D5W (PRE-DOCKED) 1,000 MG/250 ML IVPB ONE (08:11)
[2019-12-09 08:12] LABS: BASO % 0.4 % (0-2.0); HEMATOCRIT 40.1 % (35.4-49); HEMOGLOBIN 13.2 GM/dL (11.7-16.9); LYMPH % 2.2 % (8-40); MCH 29.3 pg (25.7-33.7); MCHC 32.9 g/dl (32.0-35.9); MEAN CELL VOLUME 89.1 fl (80-96); MEAN PLT VOLUME 10.9 fl (7.5-11.1); MONO % 4.8 % (3.8-10.2); NEUT % 92.6 % (42.8-82.8); PLATELET COUNT 93 K/MM3 (134-434); RDW 15.6 % (11.9-15.9); WHITE BLOOD COUNT 10.7 K/mm3 (4.0-10.0)
[2019-12-09 08:19] LABS: INR 1.33 (0.83-1.09); PROTHROMBIN TIME (PATIENT) 15.7 SEC (9.7-13.0)
[2019-12-09 09:46] LABS: BILIRUBIN,TOTAL 1.3 mg/dL (0.2-1); BLOOD UREA NITROGEN 26.5 mg/dL (7-18); CALCIUM 9.1 mg/dL (8.5-10.1); CREATININE 6.5 mg/dL (0.55-1.3); POTASSIUM 5.1 mmol/L (3.5-5.1); TOT PROT 6.7 g/dl (6.4-8.2)
--- NOTE | 2019-12-09 10:17 | PN ---
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 Been having 3-5 episodes of diarrhea ongoing for past month. Had paroxysmal SVT in past in setting of infection, denies having a fib. Does not make urine. Denies cough, nasal congestion, chest pain, SOB, AB pain. - Current Medication List Current Medications: Active Medications Atorvastatin Calcium (Lipitor -) 40 mg PO HS [facility] Last Admin: 12/08/19 22:40 Dose: 40 mg Cinacalcet (Sensipar -) 60 mg PO DAILY [facility] Clonidine (Catapres -) 0.1 mg PO BID [facility] Last Admin: 12/08/19 22:41 Dose: 0.1 mg Clopidogrel Bisulfate (Plavix -) 75 mg PO DAILY [facility] Sodium Chloride (Normal Saline -) 250 mls @ 3,000 mls/hr IV PRN PRN PRN Reason: Hypotension during Dialysis Stop: 12/09/19 13:28 Piperacillin Sod/Tazobactam (Sod 3.375 gm/ Dextrose) 50 mls @ 100 mls/hr IVPB Q8H-IV [facility]; Protocol Piperacillin Sod/Tazobactam (Sod 3.375 gm/ Dextrose) 50 mls @ 100 mls/hr IVPB Q8H-IV [facility]; Protocol Stop: 12/09/19 18:29 Last Admin: 12/09/19 01:22 Dose: 100 mls/hr Ibuprofen (Motrin -) 400 mg PO Q6H PRN PRN Reason: FEVER Insulin Aspart (Novolog Vial Sliding Scale -) 1 vial SQ ACHS [facility]; Protocol Last Admin: 12/09/19 06:50 Dose: Not Given Metoprolol Tartrate (Lopressor -) 12.5 mg PO BID [facility] Last Admin: 12/08/19 22:40 Dose: 12.5 mg Metoprolol Tartrate (Lopressor -) 25 mg PO BID [facility] Pantoprazole Sodium (Protonix -) 40 mg PO DAILY [facility] Warfarin Sodium (Coumadin -) 7.5 mg PO DAILY@1800 [facility] - Objective Vital Signs: Vital Signs Temperature 99.6 F 12/09/19 06:00 Pulse Rate 135 H 12/09/19 06:00 Respiratory Rate 18 12/09/19 06:00 Blood Pressure 118/67 12/09/19 06:00 O2 Sat by Pulse Oximetry (%) 96 12/08/19 20:49 Eyes: Yes: WNL, Conjunctiva Clear, EOM Intact HENT: Yes: WNL, Atraumatic, Normocephalic Neck: Yes: WNL, Supple, Trachea Midline Cardiovascular: Yes: WNL, Regular Rate and Rhythm Respiratory: Yes: WNL, Regular, CTA Bilaterally Gastrointestinal: Yes: WNL, Normal Bowel Sounds Genitourinary: Yes: WNL Musculoskeletal: Yes: WNL Extremities: Yes: WNL Edema: No Integumentary: Yes: WNL Neurological: Yes: WNL, Alert, Oriented ...Motor Strength: WNL Psychiatric: Yes: WNL Labs: CBC, BMP 12/09/19 05:46 12/09/19 05:46 INR, PTT INR 1.33 (0.83-1.09) H 12/09/19 05:46 Assessment/Plan - Problems (1) New onset atrial fibrillation Assessment/Plan: EKG: AF with RVR. Pt has no prior hx of AF. ECHO: 2018: mild-moderately reduced LVEF (40-45%); moderae LAE. Plan: increase metoprolol tartrate 25 mg bid (increase as tolerated by BP and HR).for AF HR control, systolic CHF, and BP. Add Cardizem 60 QID for better rate controll Pt says he has been on Clonidine 0.1 bid; last dose was last night (he does not take it on the day of dialysis). It would be better not to be on both metoprolol and clonidine; if BP allows, would plan to titrate off clonidine over the next week and continue metoprolol. Start warfarin (?cannot start IV heparin because pt has a pork allergy: stomach pain, nausea and vomiting; denies rash or trouble breathing). ECHO for LVEF, chamber sizes, valve status. Serial TNI. Telemetry. Ischemic w/u when stable Code(s): I48.91 - UNSPECIFIED ATRIAL FIBRILLATION (2) Amputated toe of right foot Code(s): S98.131A - COMPLETE TRAUMATIC AMPUTATION OF ONE RIGHT LESSER TOE, INIT (3) Dialysis patient Code(s): Z99.2 - DEPENDENCE ON RENAL DIALYSIS (4) HTN (hypertension) Code(s): I10 - ESSENTIAL (PRIMARY) HYPERTENSION (5) SOB (shortness of breath) Code(s): R06.02 - SHORTNESS OF BREATH (6) Sepsis Code(s): A41.9 - SEPSIS, UNSPECIFIED ORGANISM Qualifiers: Sepsis type: sepsis due to unspecified organism Qualified Code(s): A41.9 - Sepsis, unspecified organism (7) Type 2 diabetes mellitus with foot ulcer Code(s): E11.621 - TYPE 2 DIABETES MELLITUS WITH FOOT ULCER; L97.509 - NON- PRESSURE CHRONIC ULCER OTH PRT UNSP FOOT W UNSP SEVERITY
[2019-12-09] MEDS: CINACALCET HCL 30 MG TAB (FP) PO SCH (10:18)
[2019-12-09] MEDS: CLOPIDOGREL BISULFATE 75 MG TABLET (FP) PO SCH (10:19)
[2019-12-09] MEDS: PANTOPRAZOLE 40 MG TABLET PO SCH (10:19)
[2019-12-09] MEDS ORDERED: DEXTROSE 5%-0.45% SALINE 1,000 ML IV SCH (11:00)
[2019-12-09] MEDS ORDERED: KETOROLAC TROMETHAMINE 15 MG/ML VIAL IVPUSH PRN (11:00)
[2019-12-09] MEDS: METOPROLOL TARTRATE 25 MG TABLET (FP) PO SCH ×2 (11:00→22:01)
--- NOTE | 2019-12-09 11:45 | CON.ID ---
Consult - History of Present Illness History of Present Illness: 64 y.o. male with PMH of ESRD on HD, obesity, DM, PVD, OM s/p Rt 5th toe amp, SVT/PSVT presented to the ER with c/o fever during HD the day before associated with generalized weakness and body aches. He denies SOB/cough, H/A, sore throat , CP and is anuric but states has been having abdominal bloating and diarrhea for several weeks. Describes stools as loose, nonbloody occurring approx. 2x/ day. In the ER pt was noted to have temp of 102.5F with elevated wbc (14K) and in AFIB without prior history. Was started on broad spectrum antibiotics. Currently he states he still feels week and has Lt shoulder discomfort for the past 4 days. He believes it was due to laying on it and denies trauma/fall. Temp this a.m. was 100.7F. Blood Cx + , organism pending. - History Source History Provided By: Patient Limitations to Obtaining History: No Limitations - Past Medical History Cardio/Vascular: Yes: CHF, HTN, Other Renal/: Yes: Renal Failure, Hemodialysis Infectious Disease: Yes: Other (osteomyelitis) Endocrine: Yes: Diabetes Mellitus - Past Surgical History Past Surgical History: Yes: Amputation (right 5th toe), AV Fistula/Graft - Alcohol/Substance Use Hx Alcohol Use: No - Smoking History Smoking history: Never smoked Have you smoked in the past 12 months: No Aproximately how many cigarettes per day: 0 Home Medications - Allergies Allergies/Adverse Reactions: Allergies Allergy/AdvReac Type Severity Reaction Status Date / Time Pork/Porcine Containing Allergy Verified 12/08/19 10:51 Products - Home Medications Home Medications: Ambulatory Orders Cinacalcet HCl [Sensipar] 60 mg PO DAILY 09/28/14 Hum Insulin NPH/Reg Insulin Hm [Novolin 70-30 U100 Cartridge] 40 unit SQ BID Atorvastatin Ca [Lipitor] 40 mg PO HS #30 tablet 10/03/14 cloNIDine HCL [Catapres -] 0.1 mg PO BID #60 tablet 10/03/14 Metoclopramide HCl [Reglan] 5 mg PO TID #0 tablet 04/28/16 Pantoprazole Sodium [Protonix] 40 mg PO DAILY #0 tablet. 06/21/16 Sevelamer Carbonate [Renvela -] 2,400 mg PO TID 04/28/16 Ammonium Lactate Lotion [Lac-Hydrin 12] 1 applic TP BID PRN bottle 02/08/18 Metoprolol Tartrate [Lopressor -] 25 mg PO BID tablet 02/28/18 Clopidogrel Bisulfate [Plavix] 75 mg PO DAILY #30 tablet 08/19/18 Review of Systems - Review of Systems Constitutional: reports: Fever, Weakness. denies: No Symptoms, Chills, Diaphoresis, Lethargy, Loss of Appetite, Malaise, Night Sweats, Unintentional Wgt. Loss, Other Eyes: reports: No Symptoms. denies: Blind Spots, Blurred Vision, Double Vision , Eye Pain, Floaters, Photophobia, Recent Change in Vision, Other HENT: reports: No Symptoms. denies: Difficult Swallowing, Ear Discharge, Ear Pain, Epistaxis, Gingival Bleeding, Hearing Loss, Mouth Swelling, Nasal Congestion, Ocular Prosthesis, Throat Pain, Toothache, Ringing in Ears, Other Neck: reports: No Symptoms. denies: Decreased ROM, Lumps, Pain on Movement, Stiffness, Swollen Glands, Tenderness, Other Cardiovascular: reports: No Symptoms. denies: Chest Pain, Edema, Palpitations, Shortness of Breath, Other Respiratory: reports: No Symptoms. denies: Cough, Exercise Intolerance, Hemoptysis, Orthopnea, PND, Snoring, SOB, SOB on Exertion, Wheezing, Other Gastrointestinal: reports: Bloating, Diarrhea (no BMs today). denies: No Symptoms, Abdominal Pain, Constipation, Dysphagia, Indigestion, Melena, Nausea, Rectal Bleeding, Vomiting, Vomiting Blood, Other Genitourinary: reports: Other (anuric at baseline). denies: No Symptoms, Burning, Discharge, Dysuria, Flank Pain, Frequency, Hematuria, Incontinence, Lesions, Menses, Pain, Testicular Mass, Testicular Pain, Testicular Swelling, Urgency, Vaginal Bleeding Musculoskeletal: reports: Joint Pain (Lt shoulder). denies: No Symptoms, Back Pain, Crepitus, Decreased ROM, Extremity Pain, Joint Swelling, Muscle Pain, Muscle Cramps, Muscle Weakness, Other Integumentary: reports: No Symptoms. denies: Blister, Bruising, Change in Color , Eczema, Erythema, Incision, Lesions, Lump, Pallor, Pruritis, Rash, Wound, Other Neurological: reports: No Symptoms. denies: Change in LOC, Change in Speech, Confusion, Dizziness, Headache, Incoordination, Numbness, Parasthesia, Pre- Existing Deficit, Seizure, Syncope, Tremors, Unsteady Gait, Weakness, Other Endocrine: reports: No Symptoms. denies: Excessive Sweating, Flushing, Increased Hunger, Increased Thirst, Intolerance to Cold, Intolerance to Heat, Unexplained Weight Gain, Unexplained Weight Loss, Other Hematology/Lymphatic: reports: No Symptoms. denies: Easily Bruised, Excessive Bleeding, Swollen Glands, Other Psychiatric: reports: No Symptoms. denies: Altered Sleep Pattern, Anxiety, Depression, Hallucinations, Panic, Paranoia, Suicidal, Other Physical Exam Vital Signs: Vital Signs Temperature 99.6 F 12/09/19 06:00 Pulse Rate 135 H 12/09/19 06:00 Respiratory Rate 18 12/09/19 06:00 Blood Pressure 118/67 12/09/19 06:00 O2 Sat by Pulse Oximetry (%) 96 12/08/19 20:49 Constitutional: Yes: No Distress, Calm Eyes: Yes: Conjunctiva Clear, EOM Intact HENT: Yes: Atraumatic Neck: Yes: Supple, Trachea Midline Cardiovascular: Yes: Pulse Irregular Respiratory: Yes: CTA Bilaterally Gastrointestinal: Yes: Normal Bowel Sounds, Soft, Abdomen, Obese Renal/: Yes: Anuria Musculoskeletal: Yes: WNL (Lt shoulder full ROM, no edema/erythema) Peripheral Pulses WNL: Yes Neurological: Yes: Alert, Oriented Labs: CBC, BMP 12/09/19 05:46 12/09/19 05:46 Microbiology 12/08/19 11:15 Blood - Peripheral Venous Blood Culture - Preliminary Pending Organism 12/08/19 11:15 Blood - Peripheral Venous Blood Culture - Preliminary Pending Organism Laboratory Tests 12/08/19 12/08/19 12/08/19 11:15 11:15 11:15 WBC 14.0 H RBC 4.77 Hgb 13.9 Hct 42.0 MCV 88.0 MCH 29.2 MCHC 33.2 RDW 15.4 Plt Count 124 L MPV 10.1 Absolute Neuts (auto) 12.8 H Neutrophils % 91.3 H D Neutrophils % (Manual) 90.0 H Band Neutrophils % 2.0 Lymphocytes % 2.0 L D Lymphocytes % (Manual) 3.0 L Monocytes % 6.0 Monocytes % (Manual) 5 Eosinophils % 0.0 D Eosinophils % (Manual) 0.0 Basophils % 0.7 Basophils % (Manual) 0.0 Nucleated RBC % 0 Platelet Estimate Slt decrease PT with INR INR Sodium 136 Potassium 6.2 H* Chloride 99 Carbon Dioxide 27 Anion Gap 10 BUN 39.4 H Creatinine 8.7 H* Est GFR (CKD-EPI)AfAm 6.81 Est GFR (CKD-EPI)NonAf 5.87 POC Glucometer Random Glucose 132 H Calcium 9.7 Total Bilirubin 1.1 H AST 8 L ALT 16 Alkaline Phosphatase 107 Creatine Kinase 66 Troponin I 0.02 Total Protein 7.8 Albumin 3.6 Influenza A (Rapid) Negative Influenza B (Rapid) Negative 12/09/19 12/09/19 12/09/19 05:46 05:46 05:46 WBC 10.7 H RBC 4.50 Hgb 13.2 Hct 40.1 MCV 89.1 MCH 29.3 MCHC 32.9 RDW 15.6 Plt Count 93 L D MPV 10.9 Absolute Neuts (auto) 9.9 H Neutrophils % 92.6 H Neutrophils % (Manual) Band Neutrophils % Lymphocytes % 2.2 L Lymphocytes % (Manual) Monocytes % 4.8 Monocytes % (Manual) Eosinophils % 0.0 Eosinophils % (Manual) Basophils % 0.4 Basophils % (Manual) Nucleated RBC % 0 Platelet Estimate PT with INR 15.70 H INR 1.33 H Sodium 140 Potassium 5.1 Chloride 101 Carbon Dioxide 29 Anion Gap 10 BUN 26.5 H Creatinine 6.5 H Est GFR (CKD-EPI)AfAm 9.68 Est GFR (CKD-EPI)NonAf 8.35 POC Glucometer Random Glucose 34 L* Calcium 9.1 Total Bilirubin 1.3 H AST 20 ALT 15 Alkaline Phosphatase 88 Creatine Kinase Troponin I Total Protein 6.7 Albumin 3.0 L Influenza A (Rapid) Influenza B (Rapid) 12/09/19 12/09/19 06:44 07:49 WBC RBC Hgb Hct MCV MCH MCHC RDW Plt Count MPV Absolute Neuts (auto) Neutrophils % Neutrophils % (Manual) Band Neutrophils % Lymphocytes % Lymphocytes % (Manual) Monocytes % Monocytes % (Manual) Eosinophils % Eosinophils % (Manual) Basophils % Basophils % (Manual) Nucleated RBC % Platelet Estimate PT with INR INR Sodium Potassium Chloride Carbon Dioxide Anion Gap BUN Creatinine Est GFR (CKD-EPI)AfAm Est GFR (CKD-EPI)NonAf POC Glucometer 54 71 Random Glucose Calcium Total Bilirubin AST ALT Alkaline Phosphatase Creatine Kinase Troponin I Total Protein Albumin Influenza A (Rapid) Influenza B (Rapid) Imaging - Results Chest X-ray: Report Reviewed Problem List - Problems (1) Atrial fibrillation with rapid ventricular response Code(s): I48.91 - UNSPECIFIED ATRIAL FIBRILLATION (2) ESRD (end stage renal disease) Code(s): N18.6 - END STAGE RENAL DISEASE (3) Hyperkalemia Code(s): E87.5 - HYPERKALEMIA (4) New onset atrial fibrillation Code(s): I48.91 - UNSPECIFIED ATRIAL FIBRILLATION (5) Diabetes Code(s): E11.9 - TYPE 2 DIABETES MELLITUS WITHOUT COMPLICATIONS Qualifiers: Diabetes mellitus [facility] insulin use: 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 male with PMH of ESRD on HD, obesity, DM, CHF, PVD, OM s/p Rt 5th toe amp, SVT/PSVT presented to the ER with fever that began during HD the day before associated with generalized weakness and body aches Sepsis Bacteremia Fever Leukocytosis New Onset AFIB ESRD on HD DM PVD Obesity CHF Hx of OM/toe -- Continue Zosyn, Vancomycin post HD based on levels for now -- follow up blood culture results, repeat blood cultures -- recommend CT A/P -- stool cultures if loose stools persist -- monitor temp trend -- wbc trending down -- suggest Lt shoulder Xray if pain persists -- Cardiology following
[2019-12-09] MEDS: cloNIDine HCL 0.1 MG TABLET PO SCH (11:50)
[2019-12-09] MEDS: dilTIAZem HCL 60 MG TABLET (FP) PO SCH ×2 (12:11→18:30)
[2019-12-09] MEDS: ACETAMINOPHEN 325 MG TABLET (FP) PO PRN ×2 (12:11→18:25)
--- NOTE | 2019-12-09 12:34 | PN ---
Progress Note (short form) - Note Progress Note: Renal follow up for ESRD on HD Seen and examined at the bedside Fever finally broke this am feels fatigued s/p Hd yesterday no shortness of breath, chest pain, abd pain Vital Signs Temperature 99.6 F 12/09/19 06:00 Pulse Rate 135 H 12/09/19 06:00 Respiratory Rate 18 12/09/19 06:00 Blood Pressure 118/67 12/09/19 06:00 O2 Sat by Pulse Oximetry (%) 96 12/08/19 20:49 Intake & Output 12/06/19 12/07/19 12/08/19 12/09/19 23:59 23:59 23:59 23:59 Intake Total 500 730 Output Total 2500 Balance -1999 730 Weight 127.006 kg NAD awake and alert necks supple, no JVD tachycardic, no M/R Dec BS at lung bases, no rales soft NT/ND, Obese, no rebound or guarding no LE edema, cyanosis no focal neurologic deficits CBC, BMP 12/09/19 05:46 12/09/19 05:46 Current Medications Acetaminophen (Tylenol -) 650 mg PO Q6H PRN PRN Reason: FEVER Last Admin: 12/09/19 12:11 Dose: 650 mg Atorvastatin Calcium (Lipitor -) 40 mg PO HS [facility] Last Admin: 12/08/19 22:40 Dose: 40 mg Cinacalcet (Sensipar -) 60 mg PO DAILY [facility] Last Admin: 12/09/19 10:18 Dose: 60 mg Clopidogrel Bisulfate (Plavix -) 75 mg PO DAILY [facility] Last Admin: 12/09/19 10:19 Dose: 75 mg Diltiazem HCl (Cardizem -) 60 mg PO Q6HPO [facility] Last Admin: 12/09/19 12:11 Dose: 60 mg Sodium Chloride (Normal Saline -) 250 mls @ 3,000 mls/hr IV PRN PRN PRN Reason: Hypotension during Dialysis Stop: 12/09/19 13:28 Piperacillin Sod/Tazobactam (Sod 2.25 gm/ Dextrose) 50 mls @ 100 mls/hr IVPB Q8H-IV [facility]; Protocol Dextrose/Sodium Chloride (D5-1/2ns -) 1,000 mls @ 75 mls/hr IV [facility] Insulin Aspart (Novolog Vial Sliding Scale -) 1 vial SQ ACHS [facility]; Protocol Last Admin: 12/09/19 11:55 Dose: Not Given Ketorolac Tromethamine (Toradol Injection -) 15 mg IVPUSH Q8H PRN PRN Reason: PAIN 6-10 Stop: 12/14/19 10:59 Last Admin: 12/09/19 11:59 Dose: 15 mg Metoprolol Tartrate (Lopressor -) 12.5 mg PO BID [facility] Last Admin: 12/09/19 11:00 Dose: 12.5 mg Metoprolol Tartrate (Lopressor -) 25 mg PO BID [facility] Pantoprazole Sodium (Protonix -) 40 mg PO DAILY [facility] Last Admin: 12/09/19 10:19 Dose: 40 mg Warfarin Sodium (Coumadin -) 7.5 mg PO DAILY@1800 [facility] 64 year old gentleman with history of ESRD on HD (MWF), DM, PVD Osteomylitis, hx of SVT/PSVT who presented from the dialysis center with fever and tachycardia. 1. Fever (Influenza negative, CXR w/o infiltrates) 2. Hyperkalemia 3. Tachycardia 4. ESRD on HD 5. DM 6. 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 Will give lokelma daily for management of hyperkalemia Thank you Meet Pedro DO
[2019-12-09] MEDS ORDERED: SODIUM ZIRCONIUM CYCLOSILICATE (LOKELMA) 5 GM PACKET PO SCH (12:45)
[2019-12-09 14:11] LABS: ANISOCYTOSIS 1+; MACROCYTOSIS 0; PLATELET ESTIMATE DECREASED; TOXIC GRANULATION 1+
[2019-12-09] MEDS: SODIUM ZIRCONIUM CYCLOSILICATE (LOKELMA) 5 GM PACKET PO SCH (14:51)
[2019-12-09] MEDS ORDERED: PIPERACILLIN/TAZOBACTAM 2.25 GM VIAL IVPB ONE (17:23)
[2019-12-09] MEDS: PIPERACILLIN/TAZOB 2.25 GM 2.25 GM in DEXTROSE 5%-WATER - 50 ML IVPB SCH (17:43)
[2019-12-09] MEDS: WARFARIN NA 7.5 MG TABLET (FP) PO SCH (17:43)
--- NOTE | 2019-12-09 21:38 | PN ---
Progress Note, Physician - Current Medication List Current Medications: Active Medications Acetaminophen (Tylenol -) 650 mg PO Q6H PRN PRN Reason: FEVER Last Admin: 12/09/19 18:25 Dose: 650 mg Atorvastatin Calcium (Lipitor -) 40 mg PO HS [facility] Last Admin: 12/08/19 22:40 Dose: 40 mg Cinacalcet (Sensipar -) 60 mg PO DAILY [facility] Last Admin: 12/09/19 10:18 Dose: 60 mg Clopidogrel Bisulfate (Plavix -) 75 mg PO DAILY [facility] Last Admin: 12/09/19 10:19 Dose: 75 mg Diltiazem HCl (Cardizem -) 60 mg PO Q6HPO [facility] Last Admin: 12/09/19 18:30 Dose: Not Given Piperacillin Sod/Tazobactam (Sod 2.25 gm/ Dextrose) 50 mls @ 100 mls/hr IVPB Q8H-IV [facility]; Protocol Last Admin: 12/09/19 17:43 Dose: 100 mls/hr Insulin Aspart (Novolog Vial Sliding Scale -) 1 vial SQ ACHS [facility]; Protocol Last Admin: 12/09/19 17:52 Dose: Not Given Metoprolol Tartrate (Lopressor -) 12.5 mg PO BID [facility] Last Admin: 12/09/19 11:00 Dose: 12.5 mg Metoprolol Tartrate (Lopressor -) 25 mg PO BID [facility] Morphine Sulfate (Morphine Sulfate) 2 mg IVPUSH Q6H PRN PRN Reason: PAIN LEVEL 6-10 Pantoprazole Sodium (Protonix -) 40 mg PO DAILY [facility] Last Admin: 12/09/19 10:19 Dose: 40 mg Sodium Zirconium Cyclosilicate (Lokelma) 5 gm PO DAILY@1400 [facility] Last Admin: 12/09/19 14:51 Dose: 5 gm Warfarin Sodium (Coumadin -) 7.5 mg PO DAILY@1800 [facility] Last Admin: 12/09/19 17:43 Dose: 7.5 mg - Objective Vital Signs: Vital Signs Temperature 98.8 F 12/09/19 19:36 Pulse Rate 102 H 12/09/19 19:36 Respiratory Rate 18 12/09/19 19:36 Blood Pressure 112/68 12/09/19 19:36 O2 Sat by Pulse Oximetry (%) 99 12/09/19 19:36 Constitutional: Yes: Well Nourished Neck: Yes: WNL, Supple Cardiovascular: Yes: Tachycardia Respiratory: Yes: Diminished Gastrointestinal: Yes: WNL, Normal Bowel Sounds, Soft, Abdomen, Obese Edema: LLE: Trace, RLE: Trace Labs: CBC, BMP 12/09/19 05:46 12/09/19 05:46 INR, PTT INR 1.33 (0.83-1.09) H 12/09/19 05:46 Problem List - Problems (1) ESRD (end stage renal disease) Code(s): N18.6 - END STAGE RENAL DISEASE (2) New onset atrial fibrillation Assessment/Plan: ?Due to sepsis/fever/Pt is allergic to pork therefore cannot use heparin Also cannot use new AC's meds due to ESRD Cont coumadin and monitor pt/inr Code(s): I48.91 - UNSPECIFIED ATRIAL FIBRILLATION (3) HTN (hypertension) Code(s): I10 - ESSENTIAL (PRIMARY) HYPERTENSION (4) Sepsis Code(s): A41.9 - SEPSIS, UNSPECIFIED ORGANISM Qualifiers: Sepsis type: sepsis due to unspecified organism Qualified Code(s): A41.9 - Sepsis, unspecified organism
[2019-12-09] MEDS: ATORVASTATIN CA 40 MG TABLET (FP) PO SCH (22:01)
[2019-12-09] MEDS: MORPHINE SULFATE 2 MG/ML VIAL IVPUSH PRN (22:01)
[2019-12-10] MEDS ORDERED: PIPERACILLIN/TAZOBACTAM 2.25 GM VIAL IVPB ONE ×3 (01:06→17:21)
[2019-12-10] MEDS ORDERED: DEXTROSE 5%-WATER - 50 ML IVPB ONE ×3 (01:07→17:21)
[2019-12-10] MEDS: dilTIAZem HCL 60 MG TABLET (FP) PO SCH ×4 (01:11→17:13)
[2019-12-10] MEDS: PIPERACILLIN/TAZOB 2.25 GM 2.25 GM in DEXTROSE 5%-WATER - 50 ML IVPB SCH ×3 (01:11→17:23)
[2019-12-10] MEDS: ACETAMINOPHEN 325 MG TABLET (FP) PO PRN ×2 (01:12→22:54)
--- NOTE | 2019-12-10 07:59 | RAPID ---
Physical Examination Vital Signs: Vital Signs Temperature 98.4 F 12/10/19 02:00 Pulse Rate 92 H 12/10/19 02:00 Respiratory Rate 18 12/10/19 02:00 Blood Pressure 94/67 12/10/19 02:00 O2 Sat by Pulse Oximetry (%) 99 12/09/19 19:36 Labs: CBC, BMP 12/09/19 05:46 Rapid Response - Rapid Response Assessment: Rapid response called at 07:43 to 4w. RN reports pt experienced weakness upon rising from toilet bowl and subsequent significant vital sign of 84%. RN team x6 brought pt from toilet to bed; reported weakness. Pt found in bed resting comfortable, conversing. He denies pain, dizziness, room -spinning, CAAL, CP, SOB, abdominal pain, joint pain. He did not notice any blood on BM or urination. He denies calf pain. This has never happened before. Repeat vitals BP 104/69, HR 114, RR 21, o2 sat 92% GENERAL: AOx3, in no acute distress. HEAD: NCAT EYES: ANGELLA, EOMI, conjunctiva clear. ENT: Ears normal, nares patent, oropharynx clear without exudates. Dry mucous membranes. NECK: Normal range of motion, supple without lymphadenopathy, JVD, or masses. LUNGS: CTAB. No wheezes, and no crackles. No accessory muscle use. HEART: Irregularly irregular s1 s2, no rubs, gallops, or murmurs ABDOMEN: Obese, soft, BS present in all 4 quadrants, non-distended, no JVD, MUSCULOSKELETAL: No calf pain, no bony deformities or tenderness. No CVA tenderness. UPPER EXTREMITIES: 2+ pulses, warm, well-perfused. No cyanosis. No clubbing. No peripheral edema. LOWER EXTREMITIES: 2+ pulses, warm, well-perfused. No calf tenderness. No peripheral edema. NEUROLOGICAL: No focal deficits. Cranial nerves II-XII intact. Normal speech. Gait not appreciated. PSYCHIATRIC: Cooperative. Good eye contact. Appropriate mood and affect. SKIN: Warm, dry, normal turgor, no rashes or lesions noted, normal capillary refill. A/P: pre-syncope VS vasovagal VS mechanical fall - Pt placed on NC - CBC, CMP, trop - ECHO, CXR Primary team called. Dr. Pedro made aware of current labs New onset afib Defer anticoagulation to primary team and cardiology
[2019-12-10] MEDS: INSULIN SLIDING SCALE (NOVOLOG) 1 VIAL SQ SCH ×4 (08:27→23:13)
[2019-12-10 08:33] LABS: BLOOD UREA NITROGEN 46.7 mg/dL (7-18); CALCIUM 9.3 mg/dL (8.5-10.1); POTASSIUM 5.4 mmol/L (3.5-5.1)
[2019-12-10 09:06] LABS: ALBUMIN 2.6 g/dl (3.4-5.0); BLOOD UREA NITROGEN 50.6 mg/dL (7-18); CALCIUM 9.4 mg/dL (8.5-10.1); TOT PROT 6.5 g/dl (6.4-8.2)
[2019-12-10 09:08] LABS: CREATININE 8.4 mg/dL (0.55-1.3)
[2019-12-10 09:08] LABS: CREATININE 8.8 mg/dL (0.55-1.3)
[2019-12-10] MEDS ORDERED: PT OWN MED DRAWER 7, Y5N ONE ×2 (09:53→13:10)
--- NOTE | 2019-12-10 10:05 | PN ---
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 Been having 3-5 episodes of diarrhea ongoing for past month. Had paroxysmal SVT in past in setting of infection, denies having a fib. Does not make urine. Denies cough, nasal congestion, chest pain, SOB, AB pain. - Current Medication List Current Medications: Active Medications Acetaminophen (Tylenol -) 650 mg PO Q6H PRN PRN Reason: FEVER Last Admin: 12/10/19 01:12 Dose: 650 mg Atorvastatin Calcium (Lipitor -) 40 mg PO HS [facility] Last Admin: 12/09/19 22:01 Dose: 40 mg Cinacalcet (Sensipar -) 60 mg PO DAILY [facility] Last Admin: 12/09/19 10:18 Dose: 60 mg Clopidogrel Bisulfate (Plavix -) 75 mg PO DAILY [facility] Last Admin: 12/09/19 10:19 Dose: 75 mg Diltiazem HCl (Cardizem -) 60 mg PO Q6HPO [facility] Last Admin: 12/10/19 07:15 Dose: 60 mg Piperacillin Sod/Tazobactam (Sod 2.25 gm/ Dextrose) 50 mls @ 100 mls/hr IVPB Q8H-IV [facility]; Protocol Last Admin: 12/10/19 01:11 Dose: 100 mls/hr Insulin Aspart (Novolog Vial Sliding Scale -) 1 vial SQ ACHS [facility]; Protocol Last Admin: 12/10/19 08:27 Dose: Not Given Metoprolol Tartrate (Lopressor -) 12.5 mg PO BID [facility] Last Admin: 12/09/19 22:01 Dose: 12.5 mg Metoprolol Tartrate (Lopressor -) 25 mg PO BID [facility] Morphine Sulfate (Morphine Sulfate) 2 mg IVPUSH Q6H PRN PRN Reason: PAIN LEVEL 6-10 Last Admin: 12/09/19 22:01 Dose: 2 mg Pantoprazole Sodium (Protonix -) 40 mg PO DAILY [facility] Last Admin: 12/09/19 10:19 Dose: 40 mg Sodium Zirconium Cyclosilicate (Lokelma) 5 gm PO DAILY@1400 [facility] Last Admin: 12/09/19 14:51 Dose: 5 gm Warfarin Sodium (Coumadin -) 7.5 mg PO DAILY@1800 [facility] Last Admin: 12/09/19 17:43 Dose: 7.5 mg - Objective Vital Signs: Vital Signs Temperature 99.7 F H 12/10/19 08:42 Pulse Rate 114 H 12/10/19 08:42 Respiratory Rate 18 12/10/19 08:45 Blood Pressure 104/69 12/10/19 08:42 O2 Sat by Pulse Oximetry (%) 99 12/10/19 08:45 Eyes: Yes: WNL, Conjunctiva Clear, EOM Intact HENT: Yes: WNL, Atraumatic, Normocephalic Neck: Yes: WNL, Supple, Trachea Midline Cardiovascular: Yes: Pulse Irregular, S1, S2 Respiratory: Yes: WNL, Regular, CTA Bilaterally Gastrointestinal: Yes: WNL, Normal Bowel Sounds Genitourinary: Yes: WNL Musculoskeletal: Yes: WNL Extremities: Yes: WNL Edema: No Integumentary: Yes: WNL Neurological: Yes: WNL, Alert, Oriented ...Motor Strength: WNL Psychiatric: Yes: WNL Labs: CBC, BMP 12/10/19 08:05 INR, PTT INR 1.33 (0.83-1.09) H 12/09/19 05:46 Assessment/Plan - Problems (1) New onset atrial fibrillation Assessment/Plan: EKG: AF with RVR. Pt has no prior hx of AF. ECHO: 2018: mild-moderately reduced LVEF (40-45%); moderae LAE. Plan: increase metoprolol tartrate 25 mg bid (increase as tolerated by BP and HR).for AF HR control, systolic CHF, and BP. Add Cardizem 60 QID for better rate controll Pt says he has been on Clonidine 0.1 bid; last dose was last night (he does not take it on the day of dialysis). It would be better not to be on both metoprolol and clonidine; if BP allows, would plan to titrate off clonidine over the next week and continue metoprolol. Start warfarin (?cannot start IV heparin because pt has a pork allergy: stomach pain, nausea and vomiting; denies rash or trouble breathing). ECHO for LVEF, chamber sizes, valve status. Serial TNI. Telemetry. Ischemic w/u when stable Code(s): I48.91 - UNSPECIFIED ATRIAL FIBRILLATION (2) Amputated toe of right foot Code(s): S98.131A - COMPLETE TRAUMATIC AMPUTATION OF ONE RIGHT LESSER TOE, INIT (3) Dialysis patient Code(s): Z99.2 - DEPENDENCE ON RENAL DIALYSIS (4) HTN (hypertension) Code(s): I10 - ESSENTIAL (PRIMARY) HYPERTENSION (5) SOB (shortness of breath) Code(s): R06.02 - SHORTNESS OF BREATH (6) Sepsis Code(s): A41.9 - SEPSIS, UNSPECIFIED ORGANISM Qualifiers: Sepsis type: sepsis due to unspecified organism Qualified Code(s): A41.9 - Sepsis, unspecified organism (7) Type 2 diabetes mellitus with foot ulcer Code(s): E11.621 - TYPE 2 DIABETES MELLITUS WITH FOOT ULCER; L97.509 - NON- PRESSURE CHRONIC ULCER OTH PRT UNSP FOOT W UNSP SEVERITY
[2019-12-10] MEDS: CLOPIDOGREL BISULFATE 75 MG TABLET (FP) PO SCH (10:40)
[2019-12-10] MEDS: PANTOPRAZOLE 40 MG TABLET PO SCH (10:40)
[2019-12-10] MEDS: METOPROLOL TARTRATE 25 MG TABLET (FP) PO SCH ×2 (10:42→22:50)
[2019-12-10] MEDS: CINACALCET HCL 30 MG TAB (FP) PO SCH (10:44)
[2019-12-10 10:45] LABS: HEMATOCRIT 37.6 % (35.4-49); HEMOGLOBIN 12.4 GM/dL (11.7-16.9); MCH 29.1 pg (25.7-33.7); MCHC 32.9 g/dl (32.0-35.9); MEAN CELL VOLUME 88.7 fl (80-96); MEAN PLT VOLUME 11.8 fl (7.5-11.1); PLATELET COUNT 78 K/MM3 (134-434); RBC 4.24 M/mm3 (4.00-5.60); WHITE BLOOD COUNT 7.3 K/mm3 (4.0-10.0)
[2019-12-10] MEDS ORDERED: SODIUM CHLORIDE 250 ML IV PRN ×2 (11:34→11:37)
--- NOTE | 2019-12-10 11:43 | PN ---
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 no falls or LOC CXR done shows congestion and O2 sat is low K was 6 on am labs he offers no acute complaints apart from weakness Vital Signs Temperature 99.7 F H 12/10/19 10:15 Pulse Rate 110 H 12/10/19 10:15 Respiratory Rate 18 12/10/19 10:15 Blood Pressure 106/65 12/10/19 10:15 O2 Sat by Pulse Oximetry (%) 99 12/10/19 08:45 Intake & Output 12/07/19 12/08/19 12/09/19 12/10/19 23:59 23:59 23:59 23:59 Intake Total 500 1490 1100 Output Total 2500 2500 Balance -2000 1490 -1400 Weight 127.006 kg NAD awake and alert necks supple, no JVD tachycardic, no M/R Dec BS at lung bases, no rales soft NT/ND, Obese, no rebound or guarding no LE edema, cyanosis no focal neurologic deficits CBC, BMP 12/10/19 08:05 12/10/19 08:05 Current Medications Acetaminophen (Tylenol -) 650 mg PO Q6H PRN PRN Reason: FEVER Last Admin: 12/10/19 01:12 Dose: 650 mg Albumin Human (Albumin Human 25%) 12.5 gm IVPB Q30M [facility] Atorvastatin Calcium (Lipitor -) 40 mg PO HS [facility] Last Admin: 12/09/19 22:01 Dose: 40 mg Cinacalcet (Sensipar -) 60 mg PO DAILY [facility] Last Admin: 12/10/19 10:44 Dose: 60 mg Clopidogrel Bisulfate (Plavix -) 75 mg PO DAILY [facility] Last Admin: 12/10/19 10:40 Dose: 75 mg Diltiazem HCl (Cardizem -) 60 mg PO Q6HPO [facility] Last Admin: 12/10/19 07:15 Dose: 60 mg Piperacillin Sod/Tazobactam (Sod 2.25 gm/ Dextrose) 50 mls @ 100 mls/hr IVPB Q8H-IV [facility]; Protocol Last Admin: 12/10/19 10:44 Dose: 100 mls/hr Sodium Chloride (Normal Saline -) 250 mls @ 3,000 mls/hr IV PRN PRN PRN Reason: Hypotension during Dialysis Stop: 12/11/19 11:34 Vancomycin HCl 1,500 mg/ (Dextrose) 500 mls @ 250 mls/hr IVPB ONCE ONE; Protocol Stop: 12/10/19 13:34 Sodium Chloride (Normal Saline -) 250 mls @ 3,000 mls/hr IV PRN PRN PRN Reason: Hypotension during Dialysis Stop: 12/11/19 11:37 Insulin Aspart (Novolog Vial Sliding Scale -) 1 vial SQ ACHS [facility]; Protocol Last Admin: 12/10/19 11:09 Dose: Not Given Metoprolol Tartrate (Lopressor -) 12.5 mg PO BID [facility] Last Admin: 12/10/19 10:42 Dose: 12.5 mg Metoprolol Tartrate (Lopressor -) 25 mg PO BID [facility] Morphine Sulfate (Morphine Sulfate) 2 mg IVPUSH Q6H PRN PRN Reason: PAIN LEVEL 6-10 Last Admin: 12/09/19 22:01 Dose: 2 mg Pantoprazole Sodium (Protonix -) 40 mg PO DAILY [facility] Last Admin: 12/10/19 10:40 Dose: 40 mg Sodium Zirconium Cyclosilicate (Lokelma) 5 gm PO DAILY@1400 [facility] Last Admin: 12/09/19 14:51 Dose: 5 gm Warfarin Sodium (Coumadin -) 7.5 mg PO DAILY@1800 [facility] Last Admin: 12/09/19 17:43 Dose: 7.5 mg 64 year old gentleman with history of ESRD on HD (MWF), DM, PVD Osteomylitis, hx of SVT/PSVT who presented from the dialysis center with fever and tachycardia. 1. Fever (Influenza negative, CXR w/o infiltrates) 2. Hyperkalemia 3. Tachycardia/Afib with RVR 4. ESRD on HD 5. DM 6. Hypertension Will arrange for urgent dialysis today with UF as tolerated EKG shows no acute changes related to hyperkalemia but given hypoxia and chest congestion will arrange dialysis Will give Vanco 1.5g post HD today, todays level was 12 will draw additional blood culture on dialysis today no heparin with dialysis give low pt counts Renal diet, 1.2L fluid restriction Thank you Meet Pedro DO
--- NOTE | 2019-12-10 13:50 | EKG ---
Test Reason : Blood Pressure : / mmHG Vent. Rate : 092 BPM Atrial Rate : 115 BPM P-R Int : 000 ms QRS Dur : 090 ms QT Int : 370 ms P-R-T Axes : 000 -32 049 degrees QTc Int : 457 ms ATRIAL FIBRILLATION LEFT AXIS DEVIATION ABNORMAL ECG WHEN COMPARED WITH ECG OF 10-DEC-2019 08:19, NO SIGNIFICANT CHANGE WAS FOUND Confirmed by MD BARR MOYSES ([id number]) on 12/10/2019 1:50:11 PM Referred By: Esmer BRASWELL Confirmed By:YONI BARR MD
--- NOTE | 2019-12-10 13:54 | EKG ---
Test Reason : Blood Pressure : / mmHG Vent. Rate : 103 BPM Atrial Rate : 105 BPM P-R Int : 000 ms QRS Dur : 090 ms QT Int : 348 ms P-R-T Axes : 000 -25 043 degrees QTc Int : 455 ms POOR DATA QUALITY, INTERPRETATION MAY BE ADVERSELY AFFECTED ATRIAL FIBRILLATION WITH RAPID VENTRICULAR RESPONSE LEFT AXIS DEVIATION NONSPECIFIC ST ABNORMALITY ABNORMAL ECG Confirmed by MD BARR MOYSES ([id number]) on 12/10/2019 1:54:11 PM Referred By: Confirmed By:YONI BARR MD
[2019-12-10] MEDS ORDERED: VANCOMYCIN HCL 1,500 MG in DEXTROSE 5%-WATER - 500 ML IVPB ONE (14:00)
--- NOTE | 2019-12-10 15:16 | PN ---
Progress Note, Physician History of Present Illness: Events noted. Pt found to be hypoxic this a.m. with O2 sat 84%, CXR revealing congestion. Currently receiving dialysis. He states he is weak but feeling better. Fever seems to be resolving. No distress noted at this time. Denies having diarrhea today, no abd pain. Blood culture isolate noted. - Current Medication List Current Medications: Active Medications Acetaminophen (Tylenol -) 650 mg PO Q6H PRN PRN Reason: FEVER Last Admin: 12/10/19 01:12 Dose: 650 mg Atorvastatin Calcium (Lipitor -) 40 mg PO HS [facility] Last Admin: 12/09/19 22:01 Dose: 40 mg Cinacalcet (Sensipar -) 60 mg PO DAILY [facility] Last Admin: 12/10/19 10:44 Dose: 60 mg Clopidogrel Bisulfate (Plavix -) 75 mg PO DAILY [facility] Last Admin: 12/10/19 10:40 Dose: 75 mg Diltiazem HCl (Cardizem -) 60 mg PO Q6HPO [facility] Last Admin: 12/10/19 11:49 Dose: 60 mg Piperacillin Sod/Tazobactam (Sod 2.25 gm/ Dextrose) 50 mls @ 100 mls/hr IVPB Q8H-IV [facility]; Protocol Last Admin: 12/10/19 10:44 Dose: 100 mls/hr Sodium Chloride (Normal Saline -) 250 mls @ 3,000 mls/hr IV PRN PRN PRN Reason: Hypotension during Dialysis Stop: 12/11/19 11:33 Vancomycin HCl 1,500 mg/ (Dextrose) 500 mls @ 250 mls/hr IVPB ONCE ONE; Protocol Stop: 12/10/19 15:59 Sodium Chloride (Normal Saline -) 250 mls @ 3,000 mls/hr IV PRN PRN PRN Reason: Hypotension during Dialysis Stop: 12/11/19 11:37 Insulin Aspart (Novolog Vial Sliding Scale -) 1 vial SQ ACHS [facility]; Protocol Last Admin: 12/10/19 11:09 Dose: Not Given Metoprolol Tartrate (Lopressor -) 12.5 mg PO BID [facility] Last Admin: 12/10/19 10:42 Dose: 12.5 mg Metoprolol Tartrate (Lopressor -) 25 mg PO BID [facility] Morphine Sulfate (Morphine Sulfate) 2 mg IVPUSH Q6H PRN PRN Reason: PAIN LEVEL 6-10 Last Admin: 12/09/19 22:01 Dose: 2 mg Pantoprazole Sodium (Protonix -) 40 mg PO DAILY [facility] Last Admin: 12/10/19 10:40 Dose: 40 mg Sodium Zirconium Cyclosilicate (Lokelma) 5 gm PO DAILY@1400 [facility] Last Admin: 12/09/19 14:51 Dose: 5 gm Warfarin Sodium (Coumadin -) 7.5 mg PO DAILY@1800 [facility] Last Admin: 12/09/19 17:43 Dose: 7.5 mg - Objective Vital Signs: Vital Signs Temperature 98.5 F 12/10/19 14:15 Pulse Rate 106 H 12/10/19 15:01 Respiratory Rate 18 12/10/19 15:01 Blood Pressure 115/80 12/10/19 15:01 O2 Sat by Pulse Oximetry (%) 97 12/10/19 12:31 Constitutional: Yes: No Distress, Calm Cardiovascular: Yes: Pulse Irregular Respiratory: Yes: Other (anteriorly clear, pt receiving HD currently unable to examine fully. No distress noted.) Gastrointestinal: Yes: Normal Bowel Sounds, Soft, Abdomen, Obese Genitourinary: Yes: Anuria Musculoskeletal: Yes: WNL Extremities: Yes: Amputation (Rt toe) Integumentary: Yes: WNL Neurological: Yes: Alert, Oriented Labs: CBC, BMP 12/10/19 08:05 12/10/19 08:05 INR, PTT INR 1.33 (0.83-1.09) H 12/09/19 05:46 Microbiology 12/08/19 11:15 Blood - Peripheral Venous Blood Culture - Preliminary Presumptive Mssa (Pbp2a Neg) 12/08/19 11:15 Blood - Peripheral Venous Blood Culture - Preliminary Staphylococcus Latex Coag Pos 12/09/19 12:48 Blood - Peripheral Venous Blood Culture - Preliminary Pending Organism 12/09/19 12:30 Blood - Peripheral Venous Blood Culture - Preliminary Pending Organism - ....Imaging Chest X-ray: Report Reviewed Problem List - Problems (1) Atrial fibrillation with rapid ventricular response Code(s): I48.91 - UNSPECIFIED ATRIAL FIBRILLATION (2) ESRD (end stage renal disease) Code(s): N18.6 - END STAGE RENAL DISEASE (3) Hyperkalemia Code(s): E87.5 - HYPERKALEMIA (4) New onset atrial fibrillation Code(s): I48.91 - UNSPECIFIED ATRIAL FIBRILLATION (5) Diabetes Code(s): E11.9 - TYPE 2 DIABETES MELLITUS WITHOUT COMPLICATIONS Qualifiers: Diabetes mellitus corporate buyer insulin use: unspecified corporate buyer insulin use 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 male with PMH of ESRD on HD, obesity, DM, CHF, PVD, OM s/p Rt 5th toe amp, SVT/PSVT presented to the ER with fever that began during HD the day before associated with generalized weakness and body aches Sepsis Staph aureus bacteremia Fever Leukocytosis New Onset AFIB ESRD on HD DM PVD Obesity CHF Hx of OM/toe -- Continue Zosyn and Vancomycin post HD based on levels for now until blood Cx results final. Vancomycin 1500 mg dose ordered for post HD today. Will obtain Vanco random level in a.m. -- Blood Cx +Staph aureus, repeat blood Cx are + as well. Repeat daily until bacteremia resolves. ? source -- recommend TTE -- Pt without diarrhea today/ no abd pain -- Fever appears to be resolving. Tmax 99.7F, continue monitor -- wbc now normal -- Shoulder/hip/ankle Xray results normal -- Cardiology/Nephrology following continue monitor vitals
[2019-12-10 15:46] LABS: INR 2.39 (0.83-1.09); PROTHROMBIN TIME (PATIENT) 28.4 SEC (9.7-13.0)
[2019-12-10] MEDS: SODIUM ZIRCONIUM CYCLOSILICATE (LOKELMA) 5 GM PACKET PO SCH (16:03)
[2019-12-10] MEDS: ALBUMIN HUMAN 25% 12.5 GM/50 ML VIAL IVPB SCH ×2 (16:14→16:15)
[2019-12-10] MEDS: WARFARIN NA 7.5 MG TABLET (FP) PO SCH (17:12)
--- NOTE | 2019-12-10 18:06 | PN ---
Progress Note, Physician History of Present Illness: Rapid response this am ?Weakness in bathroom - Current Medication List Current Medications: Active Medications Acetaminophen (Tylenol -) 650 mg PO Q6H PRN PRN Reason: FEVER Last Admin: 12/10/19 01:12 Dose: 650 mg Atorvastatin Calcium (Lipitor -) 40 mg PO HS [facility] [place] Last Admin: 12/09/19 22:01 Dose: 40 mg Cinacalcet (Sensipar -) 60 mg PO DAILY [facility] [place] Last Admin: 12/10/19 10:44 Dose: 60 mg Clopidogrel Bisulfate (Plavix -) 75 mg PO DAILY [facility] [place] Last Admin: 12/10/19 10:40 Dose: 75 mg Diltiazem HCl (Cardizem -) 60 mg PO Q6HPO [facility] Last Admin: 12/10/19 17:13 Dose: 60 mg Piperacillin Sod/Tazobactam (Sod 2.25 gm/ Dextrose) 50 mls @ 100 mls/hr IVPB Q8H-IV [facility] [place]; Protocol Last Admin: 12/10/19 17:23 Dose: 100 mls/hr Sodium Chloride (Normal Saline -) 250 mls @ 3,000 mls/hr IV PRN PRN PRN Reason: Hypotension during Dialysis Stop: 12/11/19 11:33 Sodium Chloride (Normal Saline -) 250 mls @ 3,000 mls/hr IV PRN PRN PRN Reason: Hypotension during Dialysis Stop: 12/11/19 11:37 Insulin Aspart (Novolog Vial Sliding Scale -) 1 vial SQ ACHS [facility] [place]; Protocol Last Admin: 12/10/19 16:59 Dose: Not Given Metoprolol Tartrate (Lopressor -) 12.5 mg PO BID [facility] [place] Last Admin: 12/10/19 10:42 Dose: 12.5 mg Metoprolol Tartrate (Lopressor -) 25 mg PO BID [facility] Morphine Sulfate (Morphine Sulfate) 2 mg IVPUSH Q6H PRN PRN Reason: PAIN LEVEL 6-10 Last Admin: 12/09/19 22:01 Dose: 2 mg Pantoprazole Sodium (Protonix -) 40 mg PO DAILY [facility] Last Admin: 12/10/19 10:40 Dose: 40 mg Sodium Zirconium Cyclosilicate (Lokelma) 5 gm PO DAILY@1400 [facility] [place] Last Admin: 12/10/19 16:03 Dose: 5 gm Warfarin Sodium (Coumadin -) 7.5 mg PO DAILY@1800 [facility] Last Admin: 12/10/19 17:12 Dose: 7.5 mg - Objective Vital Signs: Vital Signs Temperature 98.9 F 12/10/19 15:37 Pulse Rate 97 H 12/10/19 16:30 Respiratory Rate 18 12/10/19 16:30 Blood Pressure 122/77 12/10/19 16:30 O2 Sat by Pulse Oximetry (%) 97 12/10/19 12:31 Constitutional: Yes: Well Nourished, Obese Neck: Yes: WNL, Supple Cardiovascular: Yes: Tachycardia Respiratory: Yes: WNL, Regular, CTA Bilaterally Gastrointestinal: Yes: WNL, Normal Bowel Sounds, Soft, Abdomen, Obese Edema: No Labs: CBC, BMP 12/10/19 08:05 12/10/19 08:05 INR, PTT INR 2.39 (0.83-1.09) H 12/10/19 15:00 Problem List - Problems (1) Sepsis Assessment/Plan: Due to staph bacteremia ?TTE Cont IV vanco/zosyn w/ dialysis Code(s): A41.9 - SEPSIS, UNSPECIFIED ORGANISM Qualifiers: Sepsis type: sepsis due to unspecified organism Qualified Code(s): A41.9 - Sepsis, unspecified organism (2) ESRD (end stage renal disease) Assessment/Plan: Pt on dialysis As per renal Code(s): N18.6 - END STAGE RENAL DISEASE (3) New onset atrial fibrillation Assessment/Plan: ?Due to sepsis/fever/Pt is allergic to pork therefore cannot use heparin Also cannot use new AC's meds due to ESRD Cont coumadin and monitor pt/inr Cont metoprolol/cardizem Code(s): I48.91 - UNSPECIFIED ATRIAL FIBRILLATION (4) HTN (hypertension) Code(s): I10 - ESSENTIAL (PRIMARY) HYPERTENSION (5) Diabetes Assessment/Plan: Cont sliding scale w/ coverage Code(s): E11.9 - TYPE 2 DIABETES MELLITUS WITHOUT COMPLICATIONS Qualifiers: 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
[2019-12-10] MEDS: ATORVASTATIN CA 40 MG TABLET (FP) PO SCH (22:52)
[2019-12-11] MEDS ORDERED: PIPERACILLIN/TAZOBACTAM 2.25 GM VIAL IVPB ONE ×2 (00:52→08:19)
[2019-12-11] MEDS ORDERED: DEXTROSE 5%-WATER - 50 ML IVPB ONE ×2 (00:52→08:19)
[2019-12-11] MEDS: dilTIAZem HCL 60 MG TABLET (FP) PO SCH ×4 (00:55→17:31)
[2019-12-11] MEDS: PIPERACILLIN/TAZOB 2.25 GM 2.25 GM in DEXTROSE 5%-WATER - 50 ML IVPB SCH ×2 (01:05→09:30)
[2019-12-11] MEDS: INSULIN SLIDING SCALE (NOVOLOG) 1 VIAL SQ SCH ×4 (06:42→21:57)
[2019-12-11 07:45] LABS: BASO % 0.4 % (0-2.0); EOS % 1.9 % (0-4.5); HEMATOCRIT 36.6 % (35.4-49); LYMPH % 6.4 % (8-40); MCH 28.9 pg (25.7-33.7); MCHC 32.9 g/dl (32.0-35.9); MEAN CELL VOLUME 87.9 fl (80-96); MEAN PLT VOLUME 11.7 fl (7.5-11.1); MONO % 11.7 % (3.8-10.2); NEUT % 79.6 % (42.8-82.8); PLATELET COUNT 87 K/MM3 (134-434); RBC 4.16 M/mm3 (4.00-5.60); RDW 15.6 % (11.9-15.9); WHITE BLOOD COUNT 6.6 K/mm3 (4.0-10.0)
[2019-12-11 07:53] LABS: INR 3.73 (0.83-1.09); PROTHROMBIN TIME (PATIENT) 44.6 SEC (9.7-13.0)
[2019-12-11] MEDS ORDERED: PT OWN MED DRAWER 7, Y5N ONE (08:19)
[2019-12-11] MEDS: CINACALCET HCL 30 MG TAB (FP) PO SCH (09:31)
[2019-12-11] MEDS: METOPROLOL TARTRATE 25 MG TABLET (FP) PO SCH ×2 (09:32→21:55)
[2019-12-11] MEDS: CLOPIDOGREL BISULFATE 75 MG TABLET (FP) PO SCH (09:32)
[2019-12-11] MEDS: PANTOPRAZOLE 40 MG TABLET PO SCH (09:32)
[2019-12-11] MEDS: MORPHINE SULFATE 2 MG/ML VIAL IVPUSH PRN (09:42)
--- NOTE | 2019-12-11 10:57 | PN ---
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 Been having 3-5 episodes of diarrhea ongoing for past month. Had paroxysmal SVT in past in setting of infection, denies having a fib. Does not make urine. Denies cough, nasal congestion, chest pain, SOB, AB pain. - Current Medication List Current Medications: Active Medications Acetaminophen (Tylenol -) 650 mg PO Q6H PRN PRN Reason: FEVER Last Admin: 12/10/19 22:54 Dose: 650 mg Atorvastatin Calcium (Lipitor -) 40 mg PO HS [facility] Last Admin: 12/10/19 22:52 Dose: 40 mg Cinacalcet (Sensipar -) 60 mg PO DAILY [facility] Last Admin: 12/11/19 09:31 Dose: 60 mg Clopidogrel Bisulfate (Plavix -) 75 mg PO DAILY [facility] Last Admin: 12/11/19 09:32 Dose: 75 mg Diltiazem HCl (Cardizem -) 60 mg PO Q6HPO [facility] Last Admin: 12/11/19 06:42 Dose: 60 mg Piperacillin Sod/Tazobactam (Sod 2.25 gm/ Dextrose) 50 mls @ 100 mls/hr IVPB Q8H-IV [facility]; Protocol Last Admin: 12/11/19 09:30 Dose: 100 mls/hr Sodium Chloride (Normal Saline -) 250 mls @ 3,000 mls/hr IV PRN PRN PRN Reason: Hypotension during Dialysis Stop: 12/11/19 11:33 Sodium Chloride (Normal Saline -) 250 mls @ 3,000 mls/hr IV PRN PRN PRN Reason: Hypotension during Dialysis Stop: 12/11/19 11:37 Insulin Aspart (Novolog Vial Sliding Scale -) 1 vial SQ ACHS [facility]; Protocol Last Admin: 12/11/19 06:42 Dose: 2 units Metoprolol Tartrate (Lopressor -) 12.5 mg PO BID [facility] Last Admin: 12/11/19 09:32 Dose: Not Given Metoprolol Tartrate (Lopressor -) 25 mg PO BID [facility] Morphine Sulfate (Morphine Sulfate) 2 mg IVPUSH Q6H PRN PRN Reason: PAIN LEVEL 6-10 Last Admin: 12/11/19 09:42 Dose: 2 mg Pantoprazole Sodium (Protonix -) 40 mg PO DAILY [facility] Last Admin: 12/11/19 09:32 Dose: 40 mg Sodium Zirconium Cyclosilicate (Lokelma) 5 gm PO DAILY@1400 [facility] Last Admin: 12/10/19 16:03 Dose: 5 gm Warfarin Sodium (Coumadin -) 7.5 mg PO DAILY@1800 [facility] Last Admin: 12/10/19 17:12 Dose: 7.5 mg - Objective Vital Signs: Vital Signs Temperature 98.9 F 12/11/19 06:15 Pulse Rate 75 12/11/19 10:00 Respiratory Rate 21 H 12/11/19 10:00 Blood Pressure 113/70 12/11/19 10:00 O2 Sat by Pulse Oximetry (%) 95 12/11/19 09:49 Eyes: Yes: WNL, Conjunctiva Clear, EOM Intact HENT: Yes: WNL, Atraumatic, Normocephalic Neck: Yes: WNL, Supple, Trachea Midline Cardiovascular: Yes: Pulse Irregular, S1, S2 Respiratory: Yes: WNL, Regular, CTA Bilaterally Gastrointestinal: Yes: WNL, Normal Bowel Sounds Genitourinary: Yes: WNL Musculoskeletal: Yes: WNL Extremities: Yes: WNL Edema: No Integumentary: Yes: WNL Neurological: Yes: WNL, Alert, Oriented ...Motor Strength: WNL Psychiatric: Yes: WNL Labs: CBC, BMP 12/11/19 07:10 12/10/19 08:05 INR, PTT INR 3.73 (0.83-1.09) H 12/11/19 07:10 Assessment/Plan - Problems (1) New onset atrial fibrillation Assessment/Plan: EKG: AF with RVR. Pt has no prior hx of AF. ECHO: 2018: mild-moderately reduced LVEF (40-45%); moderae LAE. Plan: increase metoprolol tartrate 25 mg bid (increase as tolerated by BP and HR).for AF HR control, systolic CHF, and BP. Add Cardizem 60 QID for better rate controll Pt says he has been on Clonidine 0.1 bid; last dose was last night (he does not take it on the day of dialysis). It would be better not to be on both metoprolol and clonidine; if BP allows, would plan to titrate off clonidine over the next week and continue metoprolol. Start warfarin (?cannot start IV heparin because pt has a pork allergy: stomach pain, nausea and vomiting; denies rash or trouble breathing). ECHO for LVEF, chamber sizes, valve status. Serial TNI. Telemetry. Ischemic w/u when stable Code(s): I48.91 - UNSPECIFIED ATRIAL FIBRILLATION (2) Amputated toe of right foot Code(s): S98.131A - COMPLETE TRAUMATIC AMPUTATION OF ONE RIGHT LESSER TOE, INIT (3) Dialysis patient Code(s): Z99.2 - DEPENDENCE ON RENAL DIALYSIS (4) HTN (hypertension) Code(s): I10 - ESSENTIAL (PRIMARY) HYPERTENSION (5) SOB (shortness of breath) Code(s): R06.02 - SHORTNESS OF BREATH (6) Sepsis Code(s): A41.9 - SEPSIS, UNSPECIFIED ORGANISM Qualifiers: Sepsis type: sepsis due to unspecified organism Qualified Code(s): A41.9 - Sepsis, unspecified organism (7) Type 2 diabetes mellitus with foot ulcer Code(s): E11.621 - TYPE 2 DIABETES MELLITUS WITH FOOT ULCER; L97.509 - NON- PRESSURE CHRONIC ULCER OTH PRT UNSP FOOT W UNSP SEVERITY
[2019-12-11] MEDS: SODIUM ZIRCONIUM CYCLOSILICATE (LOKELMA) 5 GM PACKET PO SCH (14:08)
--- NOTE | 2019-12-11 14:38 | PN ---
Progress Note (short form) - Note Progress Note: Renal follow up for ESRD on HD Seen and examined at the bedside reports continued weakness s/p urgent dialysis yesterday for hyperkalemia no sob, chest pain, fever, chills has left shoulder pain Vital Signs Temperature 98.9 F 12/11/19 06:15 Pulse Rate 75 12/11/19 10:00 Respiratory Rate 21 H 12/11/19 10:00 Blood Pressure 113/70 12/11/19 10:00 O2 Sat by Pulse Oximetry (%) 95 12/11/19 09:49 Intake & Output 12/08/19 12/09/19 12/10/19 12/11/19 23:59 23:59 23:59 23:59 Intake Total 500 1490 2860 560 Output Total 2500 6500 Balance -1999 1490 -3640 560 Weight 127.006 kg NAD awake and alert necks supple, no JVD tachycardic, no M/R Dec BS at lung bases, no rales soft NT/ND, Obese, no rebound or guarding no LE edema, cyanosis no focal neurologic deficits CBC, BMP 12/11/19 07:10 12/10/19 08:05 Current Medications Acetaminophen (Tylenol -) 650 mg PO Q6H PRN PRN Reason: FEVER Last Admin: 12/10/19 22:54 Dose: 650 mg Atorvastatin Calcium (Lipitor -) 40 mg PO HS [facility] Last Admin: 12/10/19 22:52 Dose: 40 mg Cinacalcet (Sensipar -) 60 mg PO DAILY [facility] Last Admin: 12/11/19 09:31 Dose: 60 mg Clopidogrel Bisulfate (Plavix -) 75 mg PO DAILY [facility] Last Admin: 12/11/19 09:32 Dose: 75 mg Diltiazem HCl (Cardizem -) 60 mg PO Q6HPO [facility] Last Admin: 12/11/19 12:29 Dose: 60 mg Piperacillin Sod/Tazobactam (Sod 2.25 gm/ Dextrose) 50 mls @ 100 mls/hr IVPB Q8H-IV [facility]; Protocol Last Admin: 12/11/19 09:30 Dose: 100 mls/hr Insulin Aspart (Novolog Vial Sliding Scale -) 1 vial SQ ACHS [facility]; Protocol Last Admin: 12/11/19 12:28 Dose: 4 units Metoprolol Tartrate (Lopressor -) 12.5 mg PO BID [facility] Last Admin: 12/10/19 22:50 Dose: 12.5 mg Metoprolol Tartrate (Lopressor -) 25 mg PO BID [facility] Morphine Sulfate (Morphine Sulfate) 2 mg IVPUSH Q6H PRN PRN Reason: PAIN LEVEL 6-10 Last Admin: 12/11/19 09:42 Dose: 2 mg Pantoprazole Sodium (Protonix -) 40 mg PO DAILY [facility] Last Admin: 12/11/19 09:32 Dose: 40 mg Sodium Zirconium Cyclosilicate (Lokelma) 5 gm PO DAILY@1400 [facility] Last Admin: 12/11/19 14:08 Dose: 5 gm Warfarin Sodium (Coumadin -) 7.5 mg PO DAILY@1800 [facility] Last Admin: 12/10/19 17:12 Dose: 7.5 mg 64 year old gentleman with history of ESRD on HD (MWF), DM, PVD Osteomylitis, hx of SVT/PSVT who presented from the dialysis center with fever and tachycardia. 1. Fever (Influenza negative, CXR w/o infiltrates) 2. Hyperkalemia 3. Tachycardia/Afib with RVR 4. ESRD on HD 5. DM 6. Hypertension s/p dialysis yesterday, no acute need for LEASING SPECIALIST today unless BMP shows hyperkalemia. next planned dialysis is Wednesday but will reaccss tomorrow. Vancomycin level is 19 today, check daily. On Zosyn as well as per ID. Cultures show persistent growth of MSSA Will discuss with ID if Abx should be changed (nafcillin?) Thank you Meet Pedro DO
--- NOTE | 2019-12-11 14:42 | ECHO ---
Name: SHEA PORRAS, JR Exam:Adult Echocardiogram Study Date: 12/11/2019 01:04 PM Age: 64 yrs Height: 72 in Weight: 280 lb BSA: 2.5 m2 MMode/2D Measurements & Calculations RVDd: 3.2 cm Ao root diam: 3.6 cm IVSd: 1.3 cm LA dimension: 5.9 cm LVIDd: 5.7 cm ACS: 1.5 cm LVIDs: 4.5 cm LVPWd: 1.3 cm IVSs: 1.6 cm LVPWs: 1.4 cm EDV(Teich): 161.1 ml ESV(Teich): 92.7 ml EPSS: 1.5 cm Doppler Measurements & Calculations Ao V2 max: 114.8 cm/sec TR max yamileth: 255.2 cm/sec Ao max P.3 mmHg TR max P.2 mmHg Ao V2 mean: 81.5 cm/sec Ao mean P.0 mmHg Ao V2 VTI: 18.4 cm Procedure The study was technically difficult with many images being suboptimal in quality. There was technical limitations during this study due to patients body habitas. Left Ventricle The left ventricle is normal in size. There is mild concentric left ventricular hypertrophy. Ejection Fraction = 40-45%. Left ventricular systolic function is mildly reduced. Right Ventricle The right ventricle is normal size. The right ventricular systolic function is normal. Atria The left atrium is severely dilated. Right atrium not well visualized. Mitral Valve There is moderate to severe mitral annular calcification. Tricuspid Valve The tricuspid valve is not well visualized. There is mild to moderate tricuspid regurgitation. Right ventricular systolic pressure is elevated at 30-40mmHg. Aortic Valve Mildly calcified. Pulmonic Valve The pulmonic valve is not well visualized. Great Vessels The aortic root is not well visualized. Pericardium/Pleura There is no pericardial effusion. Interpretation Summary LV: Normal size, mild LVH, mildly decerased systolic function, EF 40-45% RV: Normal LA: severely dilated Calcified mitral valve annuluis Mildly calcified aortic valve Mild to moderate TR, RVSP 30-40 mmHg. Wilman Bethea 12/11/2019 02:41 PM
--- NOTE | 2019-12-11 16:45 | PN ---
Progress Note, Physician History of Present Illness: not feeling good looks septic - Current Medication List Current Medications: Active Medications Acetaminophen (Tylenol -) 650 mg PO Q6H PRN PRN Reason: FEVER Last Admin: 12/10/19 22:54 Dose: 650 mg Atorvastatin Calcium (Lipitor -) 40 mg PO HS [facility] Last Admin: 12/10/19 22:52 Dose: 40 mg Cinacalcet (Sensipar -) 60 mg PO DAILY [facility] Last Admin: 12/11/19 09:31 Dose: 60 mg Clopidogrel Bisulfate (Plavix -) 75 mg PO DAILY [facility] Last Admin: 12/11/19 09:32 Dose: 75 mg Diltiazem HCl (Cardizem -) 60 mg PO Q6HPO [facility] Last Admin: 12/11/19 12:29 Dose: 60 mg Piperacillin Sod/Tazobactam (Sod 2.25 gm/ Dextrose) 50 mls @ 100 mls/hr IVPB Q8H-IV [facility]; Protocol Last Admin: 12/11/19 09:30 Dose: 100 mls/hr Insulin Aspart (Novolog Vial Sliding Scale -) 1 vial SQ ACHS [facility]; Protocol Last Admin: 12/11/19 12:28 Dose: 4 units Metoprolol Tartrate (Lopressor -) 12.5 mg PO BID [facility] Last Admin: 12/10/19 22:50 Dose: 12.5 mg Metoprolol Tartrate (Lopressor -) 25 mg PO BID [facility] Morphine Sulfate (Morphine Sulfate) 2 mg IVPUSH Q6H PRN PRN Reason: PAIN LEVEL 6-10 Last Admin: 12/11/19 09:42 Dose: 2 mg Pantoprazole Sodium (Protonix -) 40 mg PO DAILY [facility] Last Admin: 12/11/19 09:32 Dose: 40 mg Sodium Zirconium Cyclosilicate (Lokelma) 5 gm PO DAILY@1400 [facility] Last Admin: 12/11/19 14:08 Dose: 5 gm Warfarin Sodium (Coumadin -) 7.5 mg PO DAILY@1800 [facility] Last Admin: 12/10/19 17:12 Dose: 7.5 mg - Objective Vital Signs: Vital Signs Temperature 99.0 F 12/11/19 14:00 Pulse Rate 101 H 12/11/19 14:00 Respiratory Rate 20 12/11/19 14:00 Blood Pressure 117/53 L 12/11/19 14:00 O2 Sat by Pulse Oximetry (%) 95 12/11/19 09:49 Constitutional: Yes: Calm, Mild Distress, Obese Cardiovascular: Yes: S1, S2 Respiratory: Yes: Regular, CTA Bilaterally, On Nasal O2 Gastrointestinal: Yes: Normal Bowel Sounds, Soft Musculoskeletal: Yes: WNL Extremities: Yes: WNL Neurological: Yes: Alert, Oriented Psychiatric: Yes: Alert, Oriented Labs: CBC, BMP 12/11/19 07:10 INR, PTT INR 3.73 (0.83-1.09) H 12/11/19 07:10 Assessment/Plan Problem List - Problems (1) Atrial fibrillation with rapid ventricular response Code(s): I48.91 - UNSPECIFIED ATRIAL FIBRILLATION (2) ESRD (end stage renal disease) Code(s): N18.6 - END STAGE RENAL DISEASE (3) Hyperkalemia Code(s): E87.5 - HYPERKALEMIA (4) New onset atrial fibrillation Code(s): I48.91 - UNSPECIFIED ATRIAL FIBRILLATION (5) Diabetes Code(s): E11.9 - TYPE 2 DIABETES MELLITUS WITHOUT COMPLICATIONS 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 male with PMH of ESRD on HD, obesity, DM, CHF, PVD, OM s/p Rt 5th toe amp, SVT/PSVT presented to the ER with fever that began during HD the day before associated with generalized weakness and body aches Sepsis Bacteremia Fever Leukocytosis New Onset AFIB ESRD on HD DM PVD Obesity CHF Hx of OM/toe plan will stop zosyn and vanco will start nafcillin repeat blood cx rest as per the team
[2019-12-11 16:59] LABS: BLOOD UREA NITROGEN 40.2 mg/dL (7-18); CALCIUM 8.8 mg/dL (8.5-10.1); CREATININE 7.1 mg/dL (0.55-1.3); POTASSIUM 4.4 mmol/L (3.5-5.1)
[2019-12-11] MEDS: NAFCILLIN - 2 GM in DEXTROSE 5%-WATER - 100 ML IVPB SCH ×2 (17:28→21:55)
[2019-12-11] MEDS: WARFARIN NA 7.5 MG TABLET (FP) PO SCH (17:28)
[2019-12-11] MEDS: ACETAMINOPHEN 325 MG TABLET (FP) PO PRN (17:30)
--- NOTE | 2019-12-11 21:51 | PN ---
Progress Note, Physician History of Present Illness: No new complaints - Current Medication List Current Medications: Active Medications Acetaminophen (Tylenol -) 650 mg PO Q6H PRN PRN Reason: FEVER Last Admin: 12/11/19 17:30 Dose: 650 mg Atorvastatin Calcium (Lipitor -) 40 mg PO HS [facility] Last Admin: 12/10/19 22:52 Dose: 40 mg Cinacalcet (Sensipar -) 60 mg PO DAILY [facility] Last Admin: 12/11/19 09:31 Dose: 60 mg Clopidogrel Bisulfate (Plavix -) 75 mg PO DAILY [facility] Last Admin: 12/11/19 09:32 Dose: 75 mg Diltiazem HCl (Cardizem -) 60 mg PO Q6HPO [facility] Last Admin: 12/11/19 17:31 Dose: 60 mg Nafcillin Sodium 2 gm/ (Dextrose) 100 mls @ 100 mls/hr IVPB Q4H-IV [facility]; Protocol Last Admin: 12/11/19 17:28 Dose: 100 mls/hr Insulin Aspart (Novolog Vial Sliding Scale -) 1 vial SQ ACHS [facility]; Protocol Last Admin: 12/11/19 17:26 Dose: 2 units Metoprolol Tartrate (Lopressor -) 12.5 mg PO BID [facility] Last Admin: 12/10/19 22:50 Dose: 12.5 mg Metoprolol Tartrate (Lopressor -) 25 mg PO BID [facility] Morphine Sulfate (Morphine Sulfate) 2 mg IVPUSH Q6H PRN PRN Reason: PAIN LEVEL 6-10 Last Admin: 12/11/19 09:42 Dose: 2 mg Pantoprazole Sodium (Protonix -) 40 mg PO DAILY [facility] Last Admin: 12/11/19 09:32 Dose: 40 mg Sodium Zirconium Cyclosilicate (Lokelma) 5 gm PO DAILY@1400 [facility] Last Admin: 12/11/19 14:08 Dose: 5 gm Warfarin Sodium (Coumadin -) 7.5 mg PO DAILY@1800 [facility] Last Admin: 12/11/19 17:28 Dose: Not Given - Objective Vital Signs: Vital Signs Temperature 98.4 F 12/11/19 19:56 Pulse Rate 96 H 12/11/19 19:56 Respiratory Rate 20 12/11/19 19:56 Blood Pressure 124/60 12/11/19 19:56 O2 Sat by Pulse Oximetry (%) 96 12/11/19 19:56 Cardiovascular: Yes: Pulse Irregular Respiratory: Yes: WNL, Regular, CTA Bilaterally Gastrointestinal: Yes: WNL, Normal Bowel Sounds, Soft, Abdomen, Obese Labs: CBC, BMP 12/11/19 07:10 12/11/19 15:30 INR, PTT INR 3.73 (0.83-1.09) H 12/11/19 07:10 Problem List - Problems (1) Sepsis Assessment/Plan: Due to staph bacteremia ?TTE Cont IV vanco/zosyn w/ dialysis Code(s): A41.9 - SEPSIS, UNSPECIFIED ORGANISM Qualifiers: Sepsis type: sepsis due to unspecified organism Qualified Code(s): A41.9 - Sepsis, unspecified organism (2) ESRD (end stage renal disease) Assessment/Plan: Pt on dialysis As per renal Code(s): N18.6 - END STAGE RENAL DISEASE (3) New onset atrial fibrillation Assessment/Plan: ?Due to sepsis/fever/Pt is allergic to pork therefore cannot use heparin Also cannot use new AC's meds due to ESRD Cont coumadin and monitor pt/inr Cont metoprolol/cardizem Code(s): I48.91 - UNSPECIFIED ATRIAL FIBRILLATION (4) HTN (hypertension) Code(s): I10 - ESSENTIAL (PRIMARY) HYPERTENSION (5) Diabetes Assessment/Plan: Cont sliding scale w/ coverage Code(s): E11.9 - TYPE 2 DIABETES MELLITUS WITHOUT COMPLICATIONS Qualifiers: Diabetes mellitus longterm insulin use: unspecified longterm insulin use status Diabetes mellitus complication status: with circulatory complication (6) Obesity Code(s): E66.9 - OBESITY, UNSPECIFIED
[2019-12-11] MEDS: ATORVASTATIN CA 40 MG TABLET (FP) PO SCH (21:55)
[2019-12-12] MEDS: dilTIAZem HCL 60 MG TABLET (FP) PO SCH ×5 (00:06→23:25)
[2019-12-12] MEDS: NAFCILLIN - 2 GM in DEXTROSE 5%-WATER - 100 ML IVPB SCH ×6 (01:48→23:07)
[2019-12-12] MEDS: INSULIN SLIDING SCALE (NOVOLOG) 1 VIAL SQ SCH ×4 (07:40→23:16)
--- NOTE | 2019-12-12 09:14 | PN ---
Progress Note, Physician Chief Complaint: Pt A&Ox3; c/o left upper anterior chest wall tenderness (moderate) for the past 4 days. Feels weak. He had to be helped to sit up and eat breakfast; he says he was doing these things by himself until about a month ago. When asked to move his legs, he has some rleft- sided, but marked right-sided weakness and motion. History of Present Illness: 64yM w PMHx ESRD on Hd (MWF), obesity, nonsustained/paroxysmal SVT, HTN, diastolic CHF, IDDM, ESBL osteomyelitis/s/p right 5th toe amputation, PVD, obesity (once weighed 400 lbs; with attention to food; he has reduced to 280 lbs ), ?sleep apnea, presenting w fever, tachycardia, body aches starting yesterday. Been having 3-5 episodes of diarrhea ongoing for past month. Had paroxysmal SVT in past in setting of infection; denies having AF. Does not make urine. Denies cough, nasal congestion, chest pain, SOB, AB pain. PMD: Dr. Jameel Jauregui Cardiologsit: Dr. Jayne Odom - Current Medication List Current Medications: Active Medications Acetaminophen (Tylenol -) 650 mg PO Q6H PRN PRN Reason: FEVER Last Admin: 12/11/19 17:30 Dose: 650 mg Atorvastatin Calcium (Lipitor -) 40 mg PO HS [facility] Last Admin: 12/11/19 21:55 Dose: 40 mg Cinacalcet (Sensipar -) 60 mg PO DAILY [facility] Last Admin: 12/11/19 09:31 Dose: 60 mg Clopidogrel Bisulfate (Plavix -) 75 mg PO DAILY [facility] Last Admin: 12/11/19 09:32 Dose: 75 mg Diltiazem HCl (Cardizem -) 60 mg PO Q6HPO [facility] Last Admin: 12/12/19 07:39 Dose: 60 mg Nafcillin Sodium 2 gm/ (Dextrose) 100 mls @ 100 mls/hr IVPB Q4H-IV [facility]; Protocol Last Admin: 12/12/19 06:30 Dose: 100 mls/hr Insulin Aspart (Novolog Vial Sliding Scale -) 1 vial SQ ACHS [facility]; Protocol Last Admin: 12/12/19 07:40 Dose: 4 units Metoprolol Tartrate (Lopressor -) 12.5 mg PO BID [facility] Last Admin: 12/11/19 21:55 Dose: 12.5 mg Metoprolol Tartrate (Lopressor -) 25 mg PO BID [facility] Morphine Sulfate (Morphine Sulfate) 2 mg IVPUSH Q6H PRN PRN Reason: PAIN LEVEL 6-10 Last Admin: 12/11/19 09:42 Dose: 2 mg Pantoprazole Sodium (Protonix -) 40 mg PO DAILY [facility] Last Admin: 12/11/19 09:32 Dose: 40 mg Sodium Zirconium Cyclosilicate (Lokelma) 5 gm PO DAILY@1400 [facility] Last Admin: 12/11/19 14:08 Dose: 5 gm Warfarin Sodium (Coumadin -) 7.5 mg PO DAILY@1800 [facility] Last Admin: 12/11/19 17:28 Dose: Not Given - Objective Vital Signs: Vital Signs Temperature 97.4 F L 12/12/19 06:00 Pulse Rate 84 12/12/19 06:00 Respiratory Rate 18 12/12/19 06:00 Blood Pressure 138/71 12/12/19 06:00 O2 Sat by Pulse Oximetry (%) 96 12/11/19 22:00 Constitutional: Yes: Anxious, Obese Eyes: Yes: WNL HENT: Yes: WNL Neck: Yes: WNL Cardiovascular: Yes: Pulse Irregular Respiratory: Yes: Regular Gastrointestinal: Yes: Soft, Abdomen, Obese ...Rectal Exam: Yes: Deferred Genitourinary: Yes: Other (on regular hemodialytsis). No: Anuria Breast(s): Yes: WNL Musculoskeletal: Yes: Joint Stiffness, Muscle Weakness Extremities: Yes: Cool Edema: No Peripheral Pulses WNL: Yes Integumentary: Yes: WNL Neurological: Yes: Alert, Oriented, Weakness Psychiatric: Yes: Alert, Oriented, Other (anxiety) Labs: CBC, BMP 12/11/19 07:10 12/11/19 15:30 INR, PTT INR 3.73 (0.83-1.09) H 12/11/19 07:10 Abnormal Lab Results 12/11/19 15:30 Sodium 133 L Chloride 94 L BUN 40.2 H Creatinine 7.1 H Random Glucose 146 H - ....Imaging Other: Image Reviewed (telemetry: AF; periods of RVR) Problem List - Problems (1) New onset atrial fibrillation Assessment/Plan: EKG: AF with RVR. Pt has no prior hx of AF. ECHO: 2018, and again 12/2019, shows mild-moderately reduced LVEF (40-45%); now with severely dilated LA; mild-moderate TR. Plan: Started metoprolol tartrate 12.5 mg bid (increase as tolerated by BP and HR) .for AF HR control, systolic CHF, and BP. Now off Clonidine. Start additional meds for systolic CHF gradually. For hemodialysis. On warfarin: INR suprtherapeutic-->hold medication. Code(s): I48.91 - UNSPECIFIED ATRIAL FIBRILLATION (2) Amputated toe of right foot Assessment/Plan: PAD. Will need vascular workup, which may be done as outpatient. Code(s): S98.131A - COMPLETE TRAUMATIC AMPUTATION OF ONE RIGHT LESSER TOE, INIT (3) Dialysis patient Code(s): Z99.2 - DEPENDENCE ON RENAL DIALYSIS (4) HTN (hypertension) Code(s): I10 - ESSENTIAL (PRIMARY) HYPERTENSION (5) SOB (shortness of breath) Code(s): R06.02 - SHORTNESS OF BREATH (6) Sepsis Code(s): A41.9 - SEPSIS, UNSPECIFIED ORGANISM Qualifiers: Sepsis type: sepsis due to unspecified organism Qualified Code(s): A41.9 - Sepsis, unspecified organism (7) Type 2 diabetes mellitus with foot ulcer Code(s): E11.621 - TYPE 2 DIABETES MELLITUS WITH FOOT ULCER; L97.509 - NON- PRESSURE CHRONIC ULCER OTH PRT UNSP FOOT W UNSP SEVERITY (8) Elevated troponin I measurement Assessment/Plan: TNI 0.02-->0.37-->0.32; CK became elevated, but low CKMB relative index. EKG: AF; no significant STT abnormalities. ECHO: mildly decreased LVEF. Demand ischemia from multiple contributors, including AF with RVR, Systolic CHF , pain.fever. Communication with pt's panel laminator: Stress MIBI 12/2017: no ischemia; possible inferior wall infarct; reduced LVEF. Code(s): R74.8 - ABNORMAL LEVELS OF OTHER SERUM ENZYMES (9) Weakness Assessment/Plan: Pt for head CT; r/o CVA. Code(s): R53.1 - WEAKNESS (10) [place] cardiac risk >20% in next 10 years Assessment/Plan: Pt had stress MIBI 12/26: no ischemia. Now with elevated TNI, atypical chest pain. Plan for further evaluation of coronary arteries when stable (CVA presently being ruled out; AF with periods of RVR). Code(s): Z91.89 - [facility] PERSONAL RISK FACTORS, NOT ELSEWHERE CLASSIFIED (11) Systolic CHF Assessment/Plan: 12/2019 ECHO: mildly reduced LVEF (40-45%). (12/26 gated studies on stress MIBI: 33% LVEF). On metoprolol (would change to carvedilol, likely the most effective beta ema with reduced LVEF in hemodialysis pt). Start lisinopril. F/u BUN/Cr, electrolytes, daily weight, Is and Os. Code(s): I50.20 - UNSPECIFIED SYSTOLIC (CONGESTIVE) HEART FAILURE
[2019-12-12] MEDS ORDERED: PT OWN MED DRAWER 7, Y5N ONE ×4 (10:57→22:40)
[2019-12-12] MEDS: PANTOPRAZOLE 40 MG TABLET PO SCH (11:04)
[2019-12-12] MEDS: METOPROLOL TARTRATE 25 MG TABLET (FP) PO SCH ×3 (11:04→23:07)
[2019-12-12] MEDS: CLOPIDOGREL BISULFATE 75 MG TABLET (FP) PO SCH (11:04)
[2019-12-12] MEDS: CINACALCET HCL 30 MG TAB (FP) PO SCH (11:05)
[2019-12-12 11:30] LABS: CHOLESTEROL 137 mg/dL (50-200); HDL CHOLESTEROL 9 mg/dL (40-60); LDL CHOLESTEROL (ONLY SJRH) 34 mg/dL (5-100); TRIGLYCERIDES 545 mg/dL (0-150)
[2019-12-12] MEDS: MORPHINE SULFATE 2 MG/ML VIAL IVPUSH PRN (13:25)
--- NOTE | 2019-12-12 13:40 | EKG ---
Test Reason : Blood Pressure : / mmHG Vent. Rate : 091 BPM Atrial Rate : 105 BPM P-R Int : 000 ms QRS Dur : 086 ms QT Int : 388 ms P-R-T Axes : 000 -29 025 degrees QTc Int : 477 ms ATRIAL FIBRILLATION ABNORMAL ECG WHEN COMPARED WITH ECG OF 10-DEC-2019 09:14, NO SIGNIFICANT CHANGE WAS FOUND Confirmed by MD Templeton Daniel ([id number]) on 12/12/2019 1:40:21 PM Referred By: Esmer BRASWELL Confirmed By:Stanley Templeton MD
[2019-12-12 13:48] LABS: PROTHROMBIN TIME (PATIENT) 62.1 SEC (9.7-13.0)
[2019-12-12 14:08] LABS: BLOOD UREA NITROGEN 59.8 mg/dL (7-18); POTASSIUM 4.6 mmol/L (3.5-5.1)
[2019-12-12 14:28] LABS: CREATININE 8.6 mg/dL (0.55-1.3)
[2019-12-12] MEDS: SODIUM ZIRCONIUM CYCLOSILICATE (LOKELMA) 5 GM PACKET PO SCH (14:52)
--- NOTE | 2019-12-12 14:57 | PN ---
Progress Note, Physician History of Present Illness: stable still very weak - Current Medication List Current Medications: Active Medications Acetaminophen (Tylenol -) 650 mg PO Q6H PRN PRN Reason: FEVER Last Admin: 12/11/19 17:30 Dose: 650 mg Atorvastatin Calcium (Lipitor -) 40 mg PO HS [facility] Last Admin: 12/11/19 21:55 Dose: 40 mg Cinacalcet (Sensipar -) 60 mg PO DAILY [facility] Last Admin: 12/12/19 11:05 Dose: 60 mg Clopidogrel Bisulfate (Plavix -) 75 mg PO DAILY [facility] Last Admin: 12/12/19 11:04 Dose: 75 mg Diltiazem HCl (Cardizem -) 60 mg PO Q6HPO [facility] Last Admin: 12/12/19 12:45 Dose: 60 mg Nafcillin Sodium 2 gm/ (Dextrose) 100 mls @ 100 mls/hr IVPB Q4H-IV [facility]; Protocol Last Admin: 12/12/19 14:52 Dose: 100 mls/hr Insulin Aspart (Novolog Vial Sliding Scale -) 1 vial SQ ACHS [facility]; Protocol Last Admin: 12/12/19 12:45 Dose: 8 units Metoprolol Tartrate (Lopressor -) 25 mg PO BID [facility] Last Admin: 12/12/19 12:44 Dose: 25 mg Morphine Sulfate (Morphine Sulfate) 2 mg IVPUSH Q6H PRN PRN Reason: PAIN LEVEL 6-10 Last Admin: 12/12/19 13:25 Dose: 2 mg Pantoprazole Sodium (Protonix -) 40 mg PO DAILY [facility] Last Admin: 12/12/19 11:04 Dose: 40 mg Sodium Zirconium Cyclosilicate (Lokelma) 5 gm PO DAILY@1400 [facility] Last Admin: 12/12/19 14:52 Dose: 5 gm - Objective Vital Signs: Vital Signs Temperature 97.8 F 12/12/19 10:00 Pulse Rate 87 12/12/19 10:00 Respiratory Rate 18 12/12/19 10:00 Blood Pressure 117/64 12/12/19 10:00 O2 Sat by Pulse Oximetry (%) 96 12/12/19 10:00 Constitutional: Yes: Calm, Mild Distress, Obese Cardiovascular: Yes: S1, S2 Respiratory: Yes: Regular, CTA Bilaterally, On Nasal O2 Gastrointestinal: Yes: Normal Bowel Sounds, Soft Musculoskeletal: Yes: WNL Extremities: Yes: WNL Neurological: Yes: Alert, Oriented Psychiatric: Yes: Alert, Oriented Labs: CBC, BMP 12/11/19 07:10 12/12/19 12:47 INR, PTT INR 5.18 (0.83-1.09) H* 12/12/19 12:47 Assessment/Plan Problem List - Problems (1) Atrial fibrillation with rapid ventricular response Code(s): I48.91 - UNSPECIFIED ATRIAL FIBRILLATION (2) ESRD (end stage renal disease) Code(s): N18.6 - END STAGE RENAL DISEASE (3) Hyperkalemia Code(s): E87.5 - HYPERKALEMIA (4) New onset atrial fibrillation Code(s): I48.91 - UNSPECIFIED ATRIAL FIBRILLATION (5) Diabetes Code(s): E11.9 - TYPE 2 DIABETES MELLITUS WITHOUT COMPLICATIONS Qualifiers: Diabetes mellitus nursing home insulin use: unspecified nursing home insulin use 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 male with PMH of ESRD on HD, obesity, DM, CHF, PVD, OM s/p Rt 5th toe amp, SVT/PSVT presented to the ER with fever that began during HD the day before associated with generalized weakness and body aches Sepsis Bacteremia Fever Leukocytosis New Onset AFIB ESRD on HD DM PVD Obesity CHF Hx of OM/toe plan continue abx cx report awaited close monitoring rest as per the team
[2019-12-12 15:10] LABS: INR 5.18 (0.83-1.09)
--- NOTE | 2019-12-12 17:31 | PN ---
Progress Note, Physician History of Present Illness: Pt seen and examined at bedside. He is awake and alert. He says that he feels a little better today. - Current Medication List Current Medications: Active Medications Acetaminophen (Tylenol -) 650 mg PO Q6H PRN PRN Reason: FEVER Last Admin: 12/11/19 17:30 Dose: 650 mg Atorvastatin Calcium (Lipitor -) 40 mg PO HS [facility] Last Admin: 12/11/19 21:55 Dose: 40 mg Cinacalcet (Sensipar -) 60 mg PO DAILY [facility] Last Admin: 12/12/19 11:05 Dose: 60 mg Clopidogrel Bisulfate (Plavix -) 75 mg PO DAILY [facility] Last Admin: 12/12/19 11:04 Dose: 75 mg Diltiazem HCl (Cardizem -) 60 mg PO Q6HPO [facility] Last Admin: 12/12/19 12:45 Dose: 60 mg Nafcillin Sodium 2 gm/ (Dextrose) 100 mls @ 100 mls/hr IVPB Q4H-IV [facility]; Protocol Last Admin: 12/12/19 14:52 Dose: 100 mls/hr Insulin Aspart (Novolog Vial Sliding Scale -) 1 vial SQ ACHS [facility]; Protocol Last Admin: 12/12/19 12:45 Dose: 8 units Metoprolol Tartrate (Lopressor -) 25 mg PO BID [facility] Last Admin: 12/12/19 12:44 Dose: 25 mg Morphine Sulfate (Morphine Sulfate) 2 mg IVPUSH Q6H PRN PRN Reason: PAIN LEVEL 6-10 Last Admin: 12/12/19 13:25 Dose: 2 mg Pantoprazole Sodium (Protonix -) 40 mg PO DAILY [facility] Last Admin: 12/12/19 11:04 Dose: 40 mg Sodium Zirconium Cyclosilicate (Lokelma) 5 gm PO DAILY@1400 [facility] Last Admin: 12/12/19 14:52 Dose: 5 gm - Objective Vital Signs: Vital Signs Temperature 98.7 F 12/12/19 16:26 Pulse Rate 86 12/12/19 16:26 Respiratory Rate 20 12/12/19 16:26 Blood Pressure 118/68 12/12/19 16:26 O2 Sat by Pulse Oximetry (%) 96 12/12/19 10:00 Constitutional: Yes: Calm Eyes: Yes: Conjunctiva Clear HENT: Yes: Atraumatic Neck: Yes: Supple Cardiovascular: Yes: S1, S2 Respiratory: Yes: CTA Bilaterally Gastrointestinal: Yes: Soft, Abdomen, Obese Genitourinary: Yes: WNL Edema: Yes Edema: LLE: 1+, RLE: 1+ Neurological: Yes: Oriented Psychiatric: Yes: Oriented Labs: CBC, BMP 12/11/19 07:10 12/12/19 12:47 INR, PTT INR 5.18 (0.83-1.09) H* 12/12/19 12:47 Assessment/Plan Current Medications Generic Name Dose Route Start Last Admin Trade Name Freq PRN Reason Stop Dose Admin Acetaminophen 650 mg 12/09/19 10:59 12/11/19 17:30 Tylenol - PO 650 mg Q6H PRN Administration FEVER Atorvastatin Calcium 40 mg 12/08/19 22:00 12/11/19 21:55 Lipitor - PO 40 mg HS MARK Administration Cinacalcet 60 mg 12/09/19 10:00 12/12/19 11:05 Sensipar - PO 60 mg DAILY MARK Administration Clopidogrel Bisulfate 75 mg 12/09/19 10:00 12/12/19 11:04 Plavix - PO 75 mg DAILY [facility] Administration Diltiazem HCl 60 mg 12/09/19 12:00 12/12/19 12:45 Cardizem - PO 60 mg Q6HPO MARK Administration Nafcillin Sodium 2 gm/ 100 mls @ 100 mls/hr 12/11/19 18:00 12/12/19 14:52 Dextrose IVPB 100 mls/hr Q4H-IV [facility] Administration Protocol Insulin Aspart 1 vial 12/09/19 07:00 12/12/19 12:45 Novolog Vial Sliding Scale - SQ 8 units ACHS MARK Administration Protocol Metoprolol Tartrate 25 mg 12/12/19 11:00 12/12/19 12:44 Lopressor - PO 25 mg BID MARK Administration Morphine Sulfate 2 mg 12/09/19 21:28 12/12/19 13:25 Morphine Sulfate IVPUSH 2 mg Q6H PRN Administration PAIN LEVEL 6-10 Pantoprazole Sodium 40 mg 12/09/19 10:00 12/12/19 11:04 Protonix - PO 40 mg DAILY MARK Administration Sodium Zirconium Cyclosilicate 5 gm 12/09/19 14:00 12/12/19 14:52 Lokelma PO 5 gm DAILY@1400 [facility] Administration Microbiology 12/09/19 12:48 Blood - Peripheral Venous Blood Culture - Final Presumptive Mssa (Pbp2a Neg) 12/09/19 12:30 Blood - Peripheral Venous Blood Culture - Final Staphylococcus Aureus 12/08/19 11:15 Blood - Peripheral Venous Blood Culture - Final Staphylococcus Aureus 12/08/19 11:15 Blood - Peripheral Venous Blood Culture - Final Staphylococcus Aureus 12/10/19 14:30 Blood - Pre-Dialysis Blood Culture - Preliminary Staphylococcus Latex Coag Pos 12/10/19 14:30 Blood - Pre-Dialysis Blood Culture - Preliminary Pending Organism 1. Fever (Influenza negative, CXR w/o infiltrates) 2. Hyperkalemia 3. Tachycardia/Afib with RVR 4. ESRD on HD 5. DM 6. Hypertension 7. bacteremia Plan - HD tomorrow - monitor vanco levels - abx per medical team - pt says he is starting to feel better, cont to monitor - ID follow up
[2019-12-12] MEDS ORDERED: SODIUM CHLORIDE 250 ML IV PRN (17:32)
--- NOTE | 2019-12-12 21:18 | PN ---
Progress Note, Physician History of Present Illness: Pt still having lt shoulder pain Pt also w/ rt sided weakness - Current Medication List Current Medications: Active Medications Acetaminophen (Tylenol -) 650 mg PO Q6H PRN PRN Reason: FEVER Last Admin: 12/11/19 17:30 Dose: 650 mg Atorvastatin Calcium (Lipitor -) 40 mg PO HS [facility] Last Admin: 12/11/19 21:55 Dose: 40 mg Cinacalcet (Sensipar -) 60 mg PO DAILY [facility] Last Admin: 12/12/19 11:05 Dose: 60 mg Clopidogrel Bisulfate (Plavix -) 75 mg PO DAILY [facility] Last Admin: 12/12/19 11:04 Dose: 75 mg Diltiazem HCl (Cardizem -) 60 mg PO Q6HPO [facility] Last Admin: 12/12/19 18:45 Dose: 60 mg Nafcillin Sodium 2 gm/ (Dextrose) 100 mls @ 100 mls/hr IVPB Q4H-IV [facility]; Protocol Last Admin: 12/12/19 18:47 Dose: 100 mls/hr Sodium Chloride (Normal Saline -) 250 mls @ 3,000 mls/hr IV PRN PRN PRN Reason: Hypotension during Dialysis Stop: 12/13/19 17:32 Insulin Aspart (Novolog Vial Sliding Scale -) 1 vial SQ ACHS [facility]; Protocol Last Admin: 12/12/19 17:33 Dose: Not Given Metoprolol Tartrate (Lopressor -) 25 mg PO BID [facility] Last Admin: 12/12/19 12:44 Dose: 25 mg Morphine Sulfate (Morphine Sulfate) 2 mg IVPUSH Q6H PRN PRN Reason: PAIN LEVEL 6-10 Last Admin: 12/12/19 13:25 Dose: 2 mg Pantoprazole Sodium (Protonix -) 40 mg PO DAILY [facility] Last Admin: 12/12/19 11:04 Dose: 40 mg Sodium Zirconium Cyclosilicate (Lokelma) 5 gm PO DAILY@1400 [facility] Last Admin: 12/12/19 14:52 Dose: 5 gm - Objective Vital Signs: Vital Signs Temperature 98.3 F 12/12/19 17:00 Pulse Rate 83 12/12/19 17:00 Respiratory Rate 20 12/12/19 17:00 Blood Pressure 145/79 12/12/19 17:00 O2 Sat by Pulse Oximetry (%) 96 12/12/19 10:00 Neck: Yes: WNL, Supple Cardiovascular: Yes: Pulse Irregular Respiratory: Yes: WNL, Regular, CTA Bilaterally Gastrointestinal: Yes: WNL, Normal Bowel Sounds, Soft, Abdomen, Obese Edema: No Labs: CBC, BMP 12/11/19 07:10 12/12/19 12:47 INR, PTT INR 5.18 (0.83-1.09) H* 12/12/19 12:47 Problem List - Problems (1) Weakness Assessment/Plan: Ct scan head was unremarkable Neuro consult Code(s): R53.1 - WEAKNESS (2) Sepsis Assessment/Plan: Due to staph bacteremia ?TTE Cont IV vanco/zosyn w/ dialysis Code(s): A41.9 - SEPSIS, UNSPECIFIED ORGANISM Qualifiers: Sepsis type: sepsis due to unspecified organism Qualified Code(s): A41.9 - Sepsis, unspecified organism (3) ESRD (end stage renal disease) Assessment/Plan: Pt on dialysis As per renal Code(s): N18.6 - END STAGE RENAL DISEASE (4) New onset atrial fibrillation Assessment/Plan: ?Due to sepsis/fever/Pt is allergic to pork therefore cannot use heparin Also cannot use new AC's meds due to ESRD Hold coumadin and monitor pt/inr Cont metoprolol/cardizem Code(s): I48.91 - UNSPECIFIED ATRIAL FIBRILLATION (5) HTN (hypertension) Code(s): I10 - ESSENTIAL (PRIMARY) HYPERTENSION (6) Diabetes Assessment/Plan: Cont sliding scale w/ coverage Code(s): E11.9 - TYPE 2 DIABETES MELLITUS WITHOUT COMPLICATIONS Qualifiers: Diabetes mellitus penitentiary insulin use: unspecified rat exterminator insulin use status Diabetes mellitus complication status: with circulatory complication (7) Obesity Code(s): E66.9 - OBESITY, UNSPECIFIED
[2019-12-12] MEDS: ATORVASTATIN CA 40 MG TABLET (FP) PO SCH (23:07)
[2019-12-12] MEDS ORDERED: MORPHINE SULFATE 2 MG/ML VIAL IVPUSH ONE (23:30)
[2019-12-13] MEDS ORDERED: PT OWN MED DRAWER 7, Y5N ONE ×5 (01:30→22:49)
[2019-12-13] MEDS: NAFCILLIN - 2 GM in DEXTROSE 5%-WATER - 100 ML IVPB SCH ×6 (02:19→22:20)
[2019-12-13] MEDS: dilTIAZem HCL 60 MG TABLET (FP) PO SCH ×3 (05:42→17:23)
[2019-12-13] MEDS: INSULIN SLIDING SCALE (NOVOLOG) 1 VIAL SQ SCH ×4 (05:59→22:21)
[2019-12-13 08:09] LABS: HEMATOCRIT 34.9 % (35.4-49); HEMOGLOBIN 11.8 GM/dL (11.7-16.9); MCH 29.2 pg (25.7-33.7); MCHC 33.8 g/dl (32.0-35.9); MEAN CELL VOLUME 86.4 fl (80-96); MEAN PLT VOLUME 10.4 fl (7.5-11.1); PLATELET COUNT 118 K/MM3 (134-434); RBC 4.04 M/mm3 (4.00-5.60); WHITE BLOOD COUNT 9.8 K/mm3 (4.0-10.0)
[2019-12-13 08:34] LABS: PROTHROMBIN TIME (PATIENT) 66.7 SEC (9.7-13.0)
[2019-12-13 08:54] LABS: INR 5.56 (0.83-1.09)
[2019-12-13 08:56] LABS: BLOOD UREA NITROGEN 73.6 mg/dL (7-18); CALCIUM 8.3 mg/dL (8.5-10.1)
[2019-12-13] MEDS: METOPROLOL TARTRATE 25 MG TABLET (FP) PO SCH ×2 (10:02→22:20)
[2019-12-13 11:06] LABS: CREATININE 9.9 mg/dL (0.55-1.3)
[2019-12-13] MEDS: PANTOPRAZOLE 40 MG TABLET PO SCH (12:58)
[2019-12-13] MEDS: CLOPIDOGREL BISULFATE 75 MG TABLET (FP) PO SCH (12:58)
[2019-12-13] MEDS: CINACALCET HCL 30 MG TAB (FP) PO SCH (12:58)
--- NOTE | 2019-12-13 13:38 | PN ---
Progress Note, Physician History of Present Illness: improving looks better - Current Medication List Current Medications: Active Medications Acetaminophen (Tylenol -) 650 mg PO Q6H PRN PRN Reason: FEVER Last Admin: 12/11/19 17:30 Dose: 650 mg Atorvastatin Calcium (Lipitor -) 40 mg PO HS [facility] Last Admin: 12/12/19 23:07 Dose: 40 mg Cinacalcet (Sensipar -) 60 mg PO DAILY [facility] Last Admin: 12/13/19 12:58 Dose: 60 mg Clopidogrel Bisulfate (Plavix -) 75 mg PO DAILY [facility] Last Admin: 12/13/19 12:58 Dose: 75 mg Diltiazem HCl (Cardizem -) 60 mg PO Q6HPO [facility] Last Admin: 12/13/19 12:58 Dose: 60 mg Nafcillin Sodium 2 gm/ (Dextrose) 100 mls @ 100 mls/hr IVPB Q4H-IV [facility]; Protocol Last Admin: 12/13/19 12:58 Dose: 100 mls/hr Sodium Chloride (Normal Saline -) 250 mls @ 3,000 mls/hr IV PRN PRN PRN Reason: Hypotension during Dialysis Stop: 12/13/19 17:32 Insulin Aspart (Novolog Vial Sliding Scale -) 1 vial SQ ACHS [facility]; Protocol Last Admin: 12/13/19 12:58 Dose: Not Given Metoprolol Tartrate (Lopressor -) 25 mg PO BID [facility] Last Admin: 12/12/19 23:07 Dose: 25 mg Pantoprazole Sodium (Protonix -) 40 mg PO DAILY [facility] Last Admin: 12/13/19 12:58 Dose: 40 mg Sodium Zirconium Cyclosilicate (Lokelma) 5 gm PO DAILY@1400 [facility] Last Admin: 12/12/19 14:52 Dose: 5 gm - Objective Vital Signs: Vital Signs Temperature 98.9 F 12/13/19 09:00 Pulse Rate 82 12/13/19 11:30 Respiratory Rate 18 12/13/19 11:30 Blood Pressure 124/78 12/13/19 11:30 O2 Sat by Pulse Oximetry (%) 97 12/13/19 10:00 Constitutional: Yes: No Distress, Calm Cardiovascular: Yes: S1, S2 Respiratory: Yes: Regular, CTA Bilaterally, On Nasal O2 Gastrointestinal: Yes: Normal Bowel Sounds, Soft Musculoskeletal: Yes: WNL Extremities: Yes: WNL Neurological: Yes: Alert, Oriented Psychiatric: Yes: Alert, Oriented Labs: CBC, BMP 12/13/19 07:15 12/13/19 07:15 INR, PTT INR 5.56 (0.83-1.09) H* 12/13/19 07:15 Assessment/Plan Problem List - Problems (1) Atrial fibrillation with rapid ventricular response Code(s): I48.91 - UNSPECIFIED ATRIAL FIBRILLATION (2) ESRD (end stage renal disease) Code(s): N18.6 - END STAGE RENAL DISEASE (3) Hyperkalemia Code(s): E87.5 - HYPERKALEMIA (4) New onset atrial fibrillation Code(s): I48.91 - UNSPECIFIED ATRIAL FIBRILLATION (5) Diabetes Code(s): E11.9 - TYPE 2 DIABETES MELLITUS WITHOUT COMPLICATIONS Qualifiers: Diabetes mellitus mcc insulin use: unspecified mcc insulin use 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 male with PMH of ESRD on HD, obesity, DM, CHF, PVD, OM s/p Rt 5th toe amp, SVT/PSVT presented to the ER with fever that began during HD the day before associated with generalized weakness and body aches Sepsis Bacteremia Fever Leukocytosis New Onset AFIB ESRD on HD DM PVD Obesity CHF Hx of OM/toe plan continue abx repeat blood cx negative so far will continue to monitor rest as per the team
--- NOTE | 2019-12-13 13:43 | PN ---
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 Been having 3-5 episodes of diarrhea ongoing for past month. Had paroxysmal SVT in past in setting of infection, denies having a fib. Does not make urine. Denies cough, nasal congestion, chest pain, SOB, AB pain. - Current Medication List Current Medications: Active Medications Acetaminophen (Tylenol -) 650 mg PO Q6H PRN PRN Reason: FEVER Last Admin: 12/11/19 17:30 Dose: 650 mg Atorvastatin Calcium (Lipitor -) 40 mg PO HS [facility] Last Admin: 12/12/19 23:07 Dose: 40 mg Cinacalcet (Sensipar -) 60 mg PO DAILY [facility] Last Admin: 12/13/19 12:58 Dose: 60 mg Clopidogrel Bisulfate (Plavix -) 75 mg PO DAILY [facility] Last Admin: 12/13/19 12:58 Dose: 75 mg Diltiazem HCl (Cardizem -) 60 mg PO Q6HPO [facility] Last Admin: 12/13/19 12:58 Dose: 60 mg Nafcillin Sodium 2 gm/ (Dextrose) 100 mls @ 100 mls/hr IVPB Q4H-IV [facility]; Protocol Last Admin: 12/13/19 12:58 Dose: 100 mls/hr Sodium Chloride (Normal Saline -) 250 mls @ 3,000 mls/hr IV PRN PRN PRN Reason: Hypotension during Dialysis Stop: 12/13/19 17:32 Insulin Aspart (Novolog Vial Sliding Scale -) 1 vial SQ ACHS [facility]; Protocol Last Admin: 12/13/19 12:58 Dose: Not Given Metoprolol Tartrate (Lopressor -) 25 mg PO BID [facility] Last Admin: 12/12/19 23:07 Dose: 25 mg Pantoprazole Sodium (Protonix -) 40 mg PO DAILY [facility] Last Admin: 12/13/19 12:58 Dose: 40 mg Sodium Zirconium Cyclosilicate (Lokelma) 5 gm PO DAILY@1400 [facility] Last Admin: 12/12/19 14:52 Dose: 5 gm - Objective Vital Signs: Vital Signs Temperature 98.9 F 12/13/19 09:00 Pulse Rate 82 12/13/19 11:30 Respiratory Rate 18 12/13/19 11:30 Blood Pressure 124/78 12/13/19 11:30 O2 Sat by Pulse Oximetry (%) 97 12/13/19 10:00 Eyes: Yes: WNL, Conjunctiva Clear, EOM Intact HENT: Yes: WNL, Atraumatic, Normocephalic Neck: Yes: WNL, Supple, Trachea Midline Cardiovascular: Yes: Pulse Irregular, S1, S2 Respiratory: Yes: Diminished Gastrointestinal: Yes: WNL, Normal Bowel Sounds Genitourinary: Yes: WNL Musculoskeletal: Yes: WNL Extremities: Yes: Amputation Edema: Yes Integumentary: Yes: WNL Neurological: Yes: WNL, Alert, Oriented ...Motor Strength: WNL Psychiatric: Yes: WNL Labs: CBC, BMP 12/13/19 07:15 12/13/19 07:15 INR, PTT INR 5.56 (0.83-1.09) H* 12/13/19 07:15 Assessment/Plan - Problems (1) New onset atrial fibrillation Assessment/Plan: EKG: AF with RVR. Pt has no prior hx of AF. ECHO: 2018, and again 12/2019, shows mild-moderately reduced LVEF (40-45%); now with severely dilated LA; mild-moderate TR. Plan: Started metoprolol tartrate 12.5 mg bid (increase as tolerated by BP and HR) .for AF HR control, systolic CHF, and BP. Now off Clonidine. Start additional meds for systolic CHF gradually. For hemodialysis. On warfarin: INR suprtherapeutic-->hold medication. Code(s): I48.91 - UNSPECIFIED ATRIAL FIBRILLATION (2) Amputated toe of right foot Assessment/Plan: PAD. Will need vascular workup, which may be done as outpatient. Code(s): S98.131A - COMPLETE TRAUMATIC AMPUTATION OF ONE RIGHT LESSER TOE, INIT (3) Dialysis patient Code(s): Z99.2 - DEPENDENCE ON RENAL DIALYSIS (4) HTN (hypertension) Code(s): I10 - ESSENTIAL (PRIMARY) HYPERTENSION (5) SOB (shortness of breath) Code(s): R06.02 - SHORTNESS OF BREATH (6) Sepsis Code(s): A41.9 - SEPSIS, UNSPECIFIED ORGANISM Qualifiers: Sepsis type: sepsis due to unspecified organism Qualified Code(s): A41.9 - Sepsis, unspecified organism (7) Type 2 diabetes mellitus with foot ulcer Code(s): E11.621 - TYPE 2 DIABETES MELLITUS WITH FOOT ULCER; L97.509 - NON- PRESSURE CHRONIC ULCER OTH PRT UNSP FOOT W UNSP SEVERITY (8) Elevated troponin I measurement Assessment/Plan: TNI 0.02-->0.37-->0.32; CK became elevated, but low CKMB relative index. EKG: AF; no significant STT abnormalities. ECHO: mildly decreased LVEF. Demand ischemia from multiple contributors, including AF with RVR, Systolic CHF , pain.fever. 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 Code(s): R74.8 - ABNORMAL LEVELS OF OTHER SERUM ENZYMES (9) Weakness Assessment/Plan: Pt for head CT; r/o CVA. Code(s): R53.1 - WEAKNESS (10) [place] cardiac risk >20% in next 10 years Assessment/Plan: Pt had stress MIBI 12/26: no ischemia. Now with elevated TNI, atypical chest pain. Plan for further evaluation of coronary arteries when stable (CVA presently being ruled out; AF with periods of RVR). Code(s): Z91.89 - [facility] PERSONAL RISK FACTORS, NOT ELSEWHERE CLASSIFIED (11) Systolic CHF Assessment/Plan: 12/2019 ECHO: mildly reduced LVEF (40-45%). (12/26 gated studies on stress MIBI: 33% LVEF). On metoprolol (would change to carvedilol, likely the most effective beta ema with reduced LVEF in hemodialysis pt). Start lisinopril. F/u BUN/Cr, electrolytes, daily weight, Is and Os. Code(s): I50.20 - UNSPECIFIED SYSTOLIC (CONGESTIVE) HEART FAILURE
[2019-12-13] MEDS: SODIUM ZIRCONIUM CYCLOSILICATE (LOKELMA) 5 GM PACKET PO SCH (15:22)
[2019-12-13] MEDS ORDERED: MORPHINE SULFATE 2 MG/ML VIAL IVPUSH PRN (15:26)
--- NOTE | 2019-12-13 16:00 | PN ---
Progress Note (short form) - Note Progress Note: Renal follow up for ESRD on HD Seen and examined at the bedside s/p HD this am still feels fatigued no sob. cp has shoulder pain Vital Signs Temperature 98.9 F 12/11/19 06:15 Pulse Rate 75 12/11/19 10:00 Respiratory Rate 21 H 12/11/19 10:00 Blood Pressure 113/70 12/11/19 10:00 O2 Sat by Pulse Oximetry (%) 95 12/11/19 09:49 Intake & Output 12/08/19 12/09/19 12/10/19 12/11/19 23:59 23:59 23:59 23:59 Intake Total 500 1490 2860 560 Output Total 2500 6500 Balance -2000 1490 -3640 560 Weight 127.006 kg NAD tachycardic, no M/R Dec BS at lung bases, no rales soft NT/ND, Obese, no rebound or guarding no LE edema, cyanosis no focal neurologic deficits CBC, BMP 12/13/19 07:15 12/13/19 07:15 Current Medications Acetaminophen (Tylenol -) 650 mg PO Q6H PRN PRN Reason: FEVER Last Admin: 12/11/19 17:30 Dose: 650 mg Atorvastatin Calcium (Lipitor -) 40 mg PO HS [facility] Last Admin: 12/12/19 23:07 Dose: 40 mg Cinacalcet (Sensipar -) 60 mg PO DAILY [facility] Last Admin: 12/13/19 12:58 Dose: 60 mg Clopidogrel Bisulfate (Plavix -) 75 mg PO DAILY [facility] Last Admin: 12/13/19 12:58 Dose: 75 mg Diltiazem HCl (Cardizem -) 60 mg PO Q6HPO [facility] Last Admin: 12/13/19 12:58 Dose: 60 mg Nafcillin Sodium 2 gm/ (Dextrose) 100 mls @ 100 mls/hr IVPB Q4H-IV [facility]; Protocol Last Admin: 12/13/19 12:58 Dose: 100 mls/hr Sodium Chloride (Normal Saline -) 250 mls @ 3,000 mls/hr IV PRN PRN PRN Reason: Hypotension during Dialysis Stop: 12/13/19 17:32 Insulin Aspart (Novolog Vial Sliding Scale -) 1 vial SQ ACHS [facility]; Protocol Last Admin: 02/05/20 12:58 Dose: Not Given Metoprolol Tartrate (Lopressor -) 25 mg PO BID [facility] Last Admin: 12/12/19 23:07 Dose: 25 mg Morphine Sulfate (Morphine Sulfate) 2 mg IVPUSH Q6H PRN PRN Reason: PAIN LEVEL 6-10 Pantoprazole Sodium (Protonix -) 40 mg PO DAILY [facility] Last Admin: 12/13/19 12:58 Dose: 40 mg Sodium Zirconium Cyclosilicate (Lokelma) 5 gm PO DAILY@1400 [facility] Last Admin: 12/12/19 14:52 Dose: 5 gm 64 year old gentleman with history of ESRD on HD (MWF), DM, PVD Osteomylitis, hx of SVT/PSVT who presented from the dialysis center with fever and tachycardia. 1. Fever (Influenza negative, CXR w/o infiltrates) 2. Hyperkalemia 3. Tachycardia/Afib with RVR 4. ESRD on HD 5. DM 6. Hypertension s/p dialysis today Continue nafcillin as per ID cultures from yesteray w/o growth thus far consider orthopedics consult for shoulder pain Thank you Meet Pedro DO
--- NOTE | 2019-12-13 18:43 | CONSULT ---
Consult - text type - Consultation Consultation Note: NEUROLOGY CONSULTATION is greatly appreciated: Events reviewed and discussed with Evette ELIZABETH examined with his at the bedside. This 64 yo RH man with chronic HTN, DM, HLD, ASHD and ESRD has been on HD x 10 years. Many years of numbnes and tingling in the feet. On: Cinacalcet; Hum Insulin NPH/Reg; Atorvastatin; cloNIDine; Metoclopramide; Pantoprazole; Renvela; Metoprolol; and Clopidogrel. Was in [place] on Wednesday morning when he walked his grandson to school and then drove to Dialysis. In Dialysis devoloped pain around the right shoulder was sent to the ER for evaluation. WBC was > 10 and antibiotics were started. On day 2 he noted weakness and almost collapsed being assisted to the bathroom. He hasn't walked or been OO Bed since. Cr this AM was 9.9 mg%. Pt is s/p HD today CT of head (reviewed): Mild atrophy, densely calcified intracranial vessels including serpiginous Basilar CK was 66 U/L on admission and up to 714 on 12/09. INR climbing. 5.56 this AM. Pt continues to C/O left shoulder region pain and notes that PT found right leg weakness. SARA: Obese. Tender cord (?) left supraclavicular. Full left shoulder ROM without tenderness. - SLR No bruits. Cor Reg. HD Fistula left arm NEURO: MS/Speech: Normal CN II-XII: Normal Motor: No drift or tremor. Formal muscle testing reveals isolated weakness of right hip flexion (3/5) and right knee extension (4/5) Absent R KJ (present on the left) and both AJ's. Plantars silent Coord: No FTN Dystaxia Sensory: Decreased vibration and position toes and ankles IMP: 1. Acute right Femoral Mononeuropathy 2. Underlying diabetic peripheral neuropathy 3. R/O left subclavian DVT SUGGEST: Repeat CK, INR. Check D-Dimer Heme consult Cont PT EMG/NCS legs. Hold clopidogrel for now. Thank you very much, Zaki Carlson MD
--- NOTE | 2019-12-13 21:58 | PN ---
Progress Note, Physician History of Present Illness: Pt still having lt shoulder pain - Current Medication List Current Medications: Active Medications Acetaminophen (Tylenol -) 650 mg PO Q6H PRN PRN Reason: FEVER Last Admin: 12/11/19 17:30 Dose: 650 mg Atorvastatin Calcium (Lipitor -) 40 mg PO HS [facility] Last Admin: 12/12/19 23:07 Dose: 40 mg Cinacalcet (Sensipar -) 60 mg PO DAILY [facility] Last Admin: 12/13/19 12:58 Dose: 60 mg Clopidogrel Bisulfate (Plavix -) 75 mg PO DAILY [facility] Last Admin: 12/13/19 12:58 Dose: 75 mg Diltiazem HCl (Cardizem -) 60 mg PO Q6HPO [facility] Last Admin: 12/13/19 17:23 Dose: 60 mg Nafcillin Sodium 2 gm/ (Dextrose) 100 mls @ 100 mls/hr IVPB Q4H-IV [facility]; Protocol Last Admin: 12/13/19 18:02 Dose: 100 mls/hr Sodium Chloride (Normal Saline -) 250 mls @ 3,000 mls/hr IV PRN PRN PRN Reason: Hypotension during Dialysis Stop: 12/13/19 17:32 Insulin Aspart (Novolog Vial Sliding Scale -) 1 vial SQ ACHS [facility]; Protocol Last Admin: 12/13/19 17:36 Dose: 4 units Metoprolol Tartrate (Lopressor -) 25 mg PO BID [facility] Last Admin: 12/13/19 10:02 Dose: Not Given Morphine Sulfate (Morphine Sulfate) 2 mg IVPUSH Q6H PRN PRN Reason: PAIN LEVEL 6-10 Pantoprazole Sodium (Protonix -) 40 mg PO DAILY [facility] Last Admin: 12/13/19 12:58 Dose: 40 mg Sodium Zirconium Cyclosilicate (Lokelma) 5 gm PO DAILY@1400 [facility] Last Admin: 12/13/19 15:22 Dose: 5 gm - Objective Vital Signs: Vital Signs Temperature 97.7 F 12/13/19 17:00 Pulse Rate 103 H 12/13/19 17:00 Respiratory Rate 20 12/13/19 17:00 Blood Pressure 165/84 12/13/19 17:00 O2 Sat by Pulse Oximetry (%) 97 12/13/19 10:00 Neck: Yes: WNL, Supple Cardiovascular: Yes: Pulse Irregular Respiratory: Yes: WNL, Regular, CTA Bilaterally Gastrointestinal: Yes: WNL, Normal Bowel Sounds, Soft, Abdomen, Obese Labs: CBC, BMP 12/13/19 07:15 12/13/19 07:15 INR, PTT INR 5.56 (0.83-1.09) H* 12/13/19 07:15 Problem List - Problems (1) Weakness Assessment/Plan: Ct scan head was unremarkable Neuro consult noted ?femoral neuropathy Code(s): R53.1 - WEAKNESS (2) Sepsis Code(s): A41.9 - SEPSIS, UNSPECIFIED ORGANISM Qualifiers: Sepsis type: sepsis due to unspecified organism Qualified Code(s): A41.9 - Sepsis, unspecified organism (3) ESRD (end stage renal disease) Code(s): N18.6 - END STAGE RENAL DISEASE (4) New onset atrial fibrillation Code(s): I48.91 - UNSPECIFIED ATRIAL FIBRILLATION (5) HTN (hypertension) Code(s): I10 - ESSENTIAL (PRIMARY) HYPERTENSION (6) Diabetes Code(s): E11.9 - TYPE 2 DIABETES MELLITUS WITHOUT COMPLICATIONS Qualifiers: Diabetes mellitus 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
[2019-12-13] MEDS: ATORVASTATIN CA 40 MG TABLET (FP) PO SCH (22:20)
[2019-12-14] MEDS ORDERED: PT OWN MED DRAWER 7, Y5N ONE ×3 (01:21→09:45)
[2019-12-14] MEDS: NAFCILLIN - 2 GM in DEXTROSE 5%-WATER - 100 ML IVPB SCH ×6 (01:43→21:59)
[2019-12-14] MEDS: dilTIAZem HCL 60 MG TABLET (FP) PO SCH ×4 (06:37→17:55)
[2019-12-14] MEDS: INSULIN SLIDING SCALE (NOVOLOG) 1 VIAL SQ SCH ×4 (06:38→21:59)
[2019-12-14 07:36] LABS: BASO % 0.5 % (0-2.0); EOS % 3.9 % (0-4.5); HEMATOCRIT 36.9 % (35.4-49); HEMOGLOBIN 12.4 GM/dL (11.7-16.9); INR 3.7 (0.83-1.09); LYMPH % 12.1 % (8-40); MCH 29.2 pg (25.7-33.7); MCHC 33.5 g/dl (32.0-35.9); MEAN CELL VOLUME 87.1 fl (80-96); MEAN PLT VOLUME 10.1 fl (7.5-11.1); MONO % 11.1 % (3.8-10.2); NEUT % 72.4 % (42.8-82.8); PLATELET COUNT 152 K/MM3 (134-434); PROTHROMBIN TIME (PATIENT) 44.2 SEC (9.7-13.0); RBC 4.24 M/mm3 (4.00-5.60); RDW 16.1 % (11.9-15.9); WHITE BLOOD COUNT 8.2 K/mm3 (4.0-10.0)
[2019-12-14] MEDS: PANTOPRAZOLE 40 MG TABLET PO SCH (09:58)
[2019-12-14] MEDS: METOPROLOL TARTRATE 25 MG TABLET (FP) PO SCH ×2 (09:58→21:59)
[2019-12-14] MEDS: CINACALCET HCL 30 MG TAB (FP) PO SCH (10:00)
[2019-12-14 10:04] LABS: ALBUMIN 1.9 g/dl (3.4-5.0); BILIRUBIN,TOTAL 2.2 mg/dL (0.2-1); CALCIUM 8.4 mg/dL (8.5-10.1); CREATININE 6.9 mg/dL (0.55-1.3); POTASSIUM 4.8 mmol/L (3.5-5.1); TOT PROT 5.9 g/dl (6.4-8.2)
[2019-12-14] MEDS: SODIUM ZIRCONIUM CYCLOSILICATE (LOKELMA) 5 GM PACKET PO SCH (13:21)
--- NOTE | 2019-12-14 13:45 | PN ---
Progress Note, Physician History of Present Illness: improving looks better - Current Medication List Current Medications: Active Medications Acetaminophen (Tylenol -) 650 mg PO Q6H PRN PRN Reason: FEVER Last Admin: 12/11/19 17:30 Dose: 650 mg Atorvastatin Calcium (Lipitor -) 40 mg PO HS [facility] Last Admin: 12/13/19 22:20 Dose: 40 mg Cinacalcet (Sensipar -) 60 mg PO DAILY [facility] Last Admin: 12/14/19 10:00 Dose: 60 mg Clopidogrel Bisulfate (Plavix -) 75 mg PO DAILY [facility] Last Admin: 12/13/19 12:58 Dose: 75 mg Diltiazem HCl (Cardizem -) 60 mg PO Q6HPO [facility] Last Admin: 12/14/19 12:15 Dose: 60 mg Nafcillin Sodium 2 gm/ (Dextrose) 100 mls @ 100 mls/hr IVPB Q4H-IV [facility]; Protocol Last Admin: 12/14/19 13:21 Dose: 100 mls/hr Sodium Chloride (Normal Saline -) 250 mls @ 3,000 mls/hr IV PRN PRN PRN Reason: Hypotension during Dialysis Stop: 12/13/19 17:32 Insulin Aspart (Novolog Vial Sliding Scale -) 1 vial SQ ACHS [facility]; Protocol Last Admin: 12/14/19 12:12 Dose: 4 units Metoprolol Tartrate (Lopressor -) 25 mg PO BID [facility] Last Admin: 12/14/19 09:58 Dose: 25 mg Morphine Sulfate (Morphine Sulfate) 2 mg IVPUSH Q6H PRN PRN Reason: PAIN LEVEL 6-10 Pantoprazole Sodium (Protonix -) 40 mg PO DAILY [facility] Last Admin: 12/14/19 09:58 Dose: 40 mg Sodium Zirconium Cyclosilicate (Lokelma) 5 gm PO DAILY@1400 [facility] Last Admin: 12/14/19 13:21 Dose: 5 gm - Objective Vital Signs: Vital Signs Temperature 97.9 F 12/14/19 09:00 Pulse Rate 99 H 12/14/19 09:00 Respiratory Rate 20 12/14/19 09:00 Blood Pressure 145/98 12/14/19 09:00 O2 Sat by Pulse Oximetry (%) 98 12/14/19 09:16 Constitutional: Yes: No Distress, Calm Cardiovascular: Yes: S1, S2 Respiratory: Yes: Regular, CTA Bilaterally Gastrointestinal: Yes: Normal Bowel Sounds, Soft Musculoskeletal: Yes: Other Extremities: Yes: Other Neurological: Yes: Alert, Oriented Psychiatric: Yes: Alert, Oriented Labs: CBC, BMP 12/14/19 05:40 12/14/19 05:40 INR, PTT INR 3.70 (0.83-1.09) H 12/14/19 05:40 Assessment/Plan Problem List - Problems (1) Atrial fibrillation with rapid ventricular response Code(s): I48.91 - UNSPECIFIED ATRIAL FIBRILLATION (2) ESRD (end stage renal disease) Code(s): N18.6 - END STAGE RENAL DISEASE (3) Hyperkalemia Code(s): E87.5 - HYPERKALEMIA (4) New onset atrial fibrillation Code(s): I48.91 - UNSPECIFIED ATRIAL FIBRILLATION (5) Diabetes Code(s): E11.9 - TYPE 2 DIABETES MELLITUS WITHOUT COMPLICATIONS Qualifiers: Diabetes mellitus long term care phlebotomist insulin use: unspecified retirement insulin use 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 male with PMH of ESRD on HD, obesity, DM, CHF, PVD, OM s/p Rt 5th toe amp, SVT/PSVT presented to the ER with fever that began during HD the day before associated with generalized weakness and body aches Sepsis Bacteremia Fever Leukocytosis New Onset AFIB ESRD on HD DM PVD Obesity CHF Hx of OM/toe plan continue abx repeat blood cx negative so far will continue to monitor rest as per the team
[2019-12-14] MEDS ORDERED: SODIUM CHLORIDE 250 ML IV PRN (14:27)
--- NOTE | 2019-12-14 14:27 | PN ---
Progress Note (short form) - Note Progress Note: Renal follow up for ESRD on HD Seen and examined at the bedside awake and alert still has left shoulder pain and right side weakness no sob, cp, fever, chills s/p HD yesterday Vital Signs Temperature 97.9 F 12/14/19 09:00 Pulse Rate 99 H 12/14/19 09:00 Respiratory Rate 20 12/14/19 09:00 Blood Pressure 145/98 12/14/19 09:00 O2 Sat by Pulse Oximetry (%) 98 12/14/19 09:16 Intake & Output 12/11/19 12/12/19 12/13/19 12/14/19 23:59 23:59 23:59 23:59 Intake Total 1590 1320 980 200 Output Total 4000 2500 Balance 1590 -2680 -1520 200 NAD tachycardic, no M/R Dec BS at lung bases, no rales soft NT/ND, Obese, no rebound or guarding no LE edema, cyanosis no focal neurologic deficits CBC, BMP 12/14/19 05:40 12/14/19 05:40 Laboratory Tests 02/25/18 12/14/19 07:15 05:40 Calcium 7.1 L 8.4 L Phosphorus 5.6 H Total Bilirubin 2.2 H Albumin 1.9 L Current Medications Acetaminophen (Tylenol -) 650 mg PO Q6H PRN PRN Reason: FEVER Last Admin: 12/11/19 17:30 Dose: 650 mg Atorvastatin Calcium (Lipitor -) 40 mg PO HS [facility] Last Admin: 12/13/19 22:20 Dose: 40 mg Cinacalcet (Sensipar -) 60 mg PO DAILY [facility] Last Admin: 12/14/19 10:00 Dose: 60 mg Clopidogrel Bisulfate (Plavix -) 75 mg PO DAILY [facility] Last Admin: 12/13/19 12:58 Dose: 75 mg Diltiazem HCl (Cardizem -) 60 mg PO Q6HPO [facility] Last Admin: 12/14/19 12:15 Dose: 60 mg Nafcillin Sodium 2 gm/ (Dextrose) 100 mls @ 100 mls/hr IVPB Q4H-IV [facility]; Protocol Last Admin: 12/14/19 13:21 Dose: 100 mls/hr Sodium Chloride (Normal Saline -) 250 mls @ 3,000 mls/hr IV PRN PRN PRN Reason: Hypotension during Dialysis Stop: 12/13/19 17:32 Insulin Aspart (Novolog Vial Sliding Scale -) 1 vial SQ ACHS [facility]; Protocol Last Admin: 12/14/19 12:12 Dose: 4 units Metoprolol Tartrate (Lopressor -) 25 mg PO BID [facility] Last Admin: 12/14/19 09:58 Dose: 25 mg Morphine Sulfate (Morphine Sulfate) 2 mg IVPUSH Q6H PRN PRN Reason: PAIN LEVEL 6-10 Pantoprazole Sodium (Protonix -) 40 mg PO DAILY [facility] Last Admin: 12/14/19 09:58 Dose: 40 mg Sodium Zirconium Cyclosilicate (Lokelma) 5 gm PO DAILY@1400 [facility] Last Admin: 12/14/19 13:21 Dose: 5 gm 64 year old gentleman with history of ESRD on HD (MWF), DM, PVD Osteomylitis, hx of SVT/PSVT who presented from the dialysis center with fever and tachycardia. 1. Fever (Influenza negative, CXR w/o infiltrates) 2. Hyperkalemia 3. Tachycardia/Afib with RVR 4. ESRD on HD 5. DM 6. Hypertension no acute need for dialysis today, Next treatment planned for tomorrow. Continue nafcillin as per ID Neurology consult appericated, f.u recs Blood cutlures from Wednesday w/o growth thus far pain control as needed start renvela TID with meals for hyperphosphatemia Thank you Meet Pedro DO
--- NOTE | 2019-12-14 18:50 | CONSULT ---
Consult - text type - Consultation Consultation Note: 64yM w PMHx ESRD on Hd (MWF), obesity, nonsustained/parxysmal SVT, HTN, IDDM, ESBL osteomyelitis, PVD presenting w fever, tachycardia, body aches. Had paroxysmal SVT in past in setting of infection, denies having a fib. Does not make urine. Denies cough, nasal congestion, chest pain, SOB, AB pain. Allergies/Adverse Reactions: Allergies Allergy/AdvReac Type Severity Reaction Status Date / Time Pork/Porcine Containing Allergy Verified 12/08/19 10:51 Products Home Medications: Ambulatory Orders Cinacalcet HCl [Sensipar] 60 mg PO DAILY 09/28/14 Hum Insulin NPH/Reg Insulin Hm [Novolin 70-30 U100 Cartridge] 40 unit SQ BID Atorvastatin Ca [Lipitor] 40 mg PO HS #30 tablet 10/03/14 cloNIDine HCL [Catapres -] 0.1 mg PO BID #60 tablet 10/03/14 Metoclopramide HCl [Reglan] 5 mg PO TID #0 tablet 04/28/16 Pantoprazole Sodium [Protonix] 40 mg PO DAILY #0 tablet. 04/28/16 Sevelamer Carbonate [Renvela -] 2,400 mg PO TID 04/28/16 Ammonium Lactate Lotion [Lac-Hydrin 12] 1 applic TP BID PRN bottle 02/08/18 Metoprolol Tartrate [Lopressor -] 25 mg PO BID tablet 02/28/18 Clopidogrel Bisulfate [Plavix] 75 mg PO DAILY #30 tablet 08/19/18 Anemia: Yes Diabetes: Yes Dialysis: Yes GI Disorders: Yes (DIVERTICULOSIS, COLON POLYPS, GERD) HTN: Yes Hypercholesterolemia: Yes Liver Disease: Yes (ELEVATED LIVER ENZYMES) - Surgical History Orthopedic Surgery: Yes (ROTATOR CUFF REPAIR L SHOULDER) - Psycho Social/Smoking Cessation Hx Smoking History: Never smoked Last Vital Signs Temp Pulse Resp BP Pulse Ox 98 F 92 H 20 140/65 98 12/14/19 14:15 12/14/19 14:15 12/14/19 14:15 12/14/19 14:15 12/14/19 09:16 Cor: RSR, No murmurs, No gallops Lungs: Clear to P&A Abd: Soft, Normal bowel sounds, No organomegaly Ext:No significant edema Labs/Meds reviewed A/P 64yM w PMHx ESRD on Hd (MWF), obesity, nonsustained/parxysmal SVT, HTN, IDDM, ESBL osteomyelitis, PVD presenting w 1d fever, tachycardia, body aches and 1mo diarrhea. New onset afib/.RVR 1. Fever / S. aureus bacteremia 2. Hyperkalemia 3. Tachycardia/Afib with RVR 4. ESRD on HD 5. DM 6. Hypertension Elevated INR --due to interaction between coumadin and nafcillin. ? Vit. K deficiency ? bacteremia and septic componenet Holding coumadin INR --3.5 Resume at lower doses when INR<3 and monitor closely Plavix on hold-- resume per cardiology no active bleeding Cardiology following
[2019-12-14] MEDS: ATORVASTATIN CA 40 MG TABLET (FP) PO SCH (21:59)
--- NOTE | 2019-12-14 23:25 | PN ---
Progress Note, Physician History of Present Illness: No new complaints - Current Medication List Current Medications: Active Medications Acetaminophen (Tylenol -) 650 mg PO Q6H PRN PRN Reason: FEVER Last Admin: 12/11/19 17:30 Dose: 650 mg Atorvastatin Calcium (Lipitor -) 40 mg PO HS [facility] Last Admin: 12/14/19 21:59 Dose: 40 mg Cinacalcet (Sensipar -) 60 mg PO DAILY [facility] Last Admin: 12/14/19 10:00 Dose: 60 mg Clopidogrel Bisulfate (Plavix -) 75 mg PO DAILY [facility] Last Admin: 12/13/19 12:58 Dose: 75 mg Diltiazem HCl (Cardizem -) 60 mg PO Q6HPO [facility] Last Admin: 12/14/19 17:55 Dose: 60 mg Nafcillin Sodium 2 gm/ (Dextrose) 100 mls @ 100 mls/hr IVPB Q4H-IV [facility]; Protocol Last Admin: 12/14/19 21:59 Dose: 100 mls/hr Sodium Chloride (Normal Saline -) 250 mls @ 3,000 mls/hr IV PRN PRN PRN Reason: Hypotension during Dialysis Stop: 12/15/19 14:27 Insulin Aspart (Novolog Vial Sliding Scale -) 1 vial SQ ACHS [facility]; Protocol Last Admin: 12/14/19 21:59 Dose: 2 units Metoprolol Tartrate (Lopressor -) 25 mg PO BID [facility] Last Admin: 12/14/19 21:59 Dose: 25 mg Morphine Sulfate (Morphine Sulfate) 2 mg IVPUSH Q6H PRN PRN Reason: PAIN LEVEL 6-10 Pantoprazole Sodium (Protonix -) 40 mg PO DAILY [facility] Last Admin: 12/14/19 09:58 Dose: 40 mg Sodium Zirconium Cyclosilicate (Lokelma) 5 gm PO DAILY@1400 [facility] Last Admin: 12/14/19 13:21 Dose: 5 gm - Objective Vital Signs: Vital Signs Temperature 97.7 F 12/14/19 17:00 Pulse Rate 95 H 12/14/19 17:00 Respiratory Rate 20 12/14/19 17:00 Blood Pressure 136/83 12/14/19 17:00 O2 Sat by Pulse Oximetry (%) 97 12/14/19 20:14 Constitutional: Yes: Well Nourished Neck: Yes: WNL, Supple Cardiovascular: Yes: Pulse Irregular Respiratory: Yes: Diminished Gastrointestinal: Yes: WNL, Normal Bowel Sounds, Soft, Abdomen, Obese Labs: CBC, BMP 12/14/19 05:40 12/14/19 05:40 INR, PTT INR 3.70 (0.83-1.09) H 12/14/19 05:40 Problem List - Problems (1) Weakness Assessment/Plan: Ct scan head was unremarkable Neuro consult noted ?femoral neuropathy Code(s): R53.1 - WEAKNESS (2) Sepsis Assessment/Plan: Due to staph aureus bacteremia Repeat BC remain negative Cont IV naficillin w/ dialysis Code(s): A41.9 - SEPSIS, UNSPECIFIED ORGANISM Qualifiers: Sepsis type: sepsis due to unspecified organism Qualified Code(s): A41.9 - Sepsis, unspecified organism (3) ESRD (end stage renal disease) Assessment/Plan: Pt on dialysis As per renal Code(s): N18.6 - END STAGE RENAL DISEASE (4) New onset atrial fibrillation Assessment/Plan: ?Due to sepsis/fever/Pt is allergic to pork therefore cannot use heparin Also cannot use new AC's meds due to ESRD Hold coumadin and monitor pt/inr Cont metoprolol/cardizem Code(s): I48.91 - UNSPECIFIED ATRIAL FIBRILLATION (5) HTN (hypertension) Code(s): I10 - ESSENTIAL (PRIMARY) HYPERTENSION (6) Diabetes Assessment/Plan: Cont sliding scale w/ coverage Code(s): E11.9 - TYPE 2 DIABETES MELLITUS WITHOUT COMPLICATIONS Qualifiers: Diabetes mellitus retirement insulin use: unspecified retirement insulin use status Diabetes mellitus complication status: with circulatory complication (7) Obesity Code(s): E66.9 - OBESITY, UNSPECIFIED
[2019-12-15] MEDS: NAFCILLIN - 2 GM in DEXTROSE 5%-WATER - 100 ML IVPB SCH ×6 (02:24→22:08)
[2019-12-15] MEDS: dilTIAZem HCL 60 MG TABLET (FP) PO SCH ×5 (06:21→23:06)
[2019-12-15] MEDS: INSULIN SLIDING SCALE (NOVOLOG) 1 VIAL SQ SCH ×4 (06:25→22:11)
[2019-12-15 07:38] LABS: HEMATOCRIT 35.2 % (35.4-49); HEMOGLOBIN 11.9 GM/dL (11.7-16.9); MCH 28.9 pg (25.7-33.7); MCHC 33.7 g/dl (32.0-35.9); MEAN CELL VOLUME 85.7 fl (80-96); MEAN PLT VOLUME 9.4 fl (7.5-11.1); PLATELET COUNT 186 K/MM3 (134-434); RDW 16.2 % (11.9-15.9); WHITE BLOOD COUNT 8.5 K/mm3 (4.0-10.0)
[2019-12-15 08:09] LABS: INR 2.54 (0.83-1.09); PROTHROMBIN TIME (PATIENT) 30.3 SEC (9.7-13.0)
[2019-12-15 08:20] LABS: BLOOD UREA NITROGEN 55.1 mg/dL (7-18); CALCIUM 8.1 mg/dL (8.5-10.1); PHOSPHOROUS 6.2 mg/dL (2.5-4.9); POTASSIUM 4.4 mmol/L (3.5-5.1)
[2019-12-15 08:23] LABS: CREATININE 8.6 mg/dL (0.55-1.3)
[2019-12-15] MEDS ORDERED: PT OWN MED DRAWER 7, Y5N ONE ×5 (11:18→17:38)
[2019-12-15] MEDS ORDERED: INSULIN (NOVOLOG) ASPART 100 UNITS/ML 10ML VIAL ONE (11:19)
--- NOTE | 2019-12-15 13:27 | CON.ORTH ---
Consult Reason for Consultation:: left shoulder/clavicle pain and swelling - Past Medical History Cardio/Vascular: Yes: HTN Renal/: Yes: Renal Failure Infectious Disease: Yes: Other (osteomyelitis) Endocrine: Yes: Diabetes Mellitus - Past Surgical History Past Surgical History: Yes: Amputation (right 5th toe), AV Fistula/Graft - Alcohol/Substance Use Hx Alcohol Use: No - Smoking History Smoking history: Never smoked Have you smoked in the past 12 months: No Aproximately how many cigarettes per day: 0 Home Medications - Allergies Allergies/Adverse Reactions: Allergies Allergy/AdvReac Type Severity Reaction Status Date / Time Pork/Porcine Containing Allergy Verified 12/08/19 10:51 Products - Home Medications Home Medications: Ambulatory Orders Cinacalcet HCl [Sensipar] 60 mg PO DAILY 09/28/14 Hum Insulin NPH/Reg Insulin Hm [Novolin 70-30 U100 Cartridge] 40 unit SQ BID Atorvastatin Ca [Lipitor] 40 mg PO HS #30 tablet 10/03/14 cloNIDine HCL [Catapres -] 0.1 mg PO BID #60 tablet 10/03/14 Metoclopramide HCl [Reglan] 5 mg PO TID #0 tablet 04/28/16 Pantoprazole Sodium [Protonix] 40 mg PO DAILY #0 tablet. 04/28/16 Sevelamer Carbonate [Renvela -] 2,400 mg PO TID 04/28/16 Ammonium Lactate Lotion [Lac-Hydrin 12] 1 applic TP BID PRN bottle 02/08/18 Metoprolol Tartrate [Lopressor -] 25 mg PO BID tablet 02/28/18 Clopidogrel Bisulfate [Plavix] 75 mg PO DAILY #30 tablet 08/19/18 Physical Exam for Ortho Vital Signs: Vital Signs Temperature 98.5 F 12/15/19 07:47 Pulse Rate 58 L 12/15/19 11:05 Respiratory Rate 18 12/15/19 11:05 Blood Pressure 151/85 12/15/19 11:05 O2 Sat by Pulse Oximetry (%) 98 12/15/19 07:47 Labs: CBC, BMP 12/15/19 07:06 12/15/19 07:06 INR, PTT INR 2.54 (0.83-1.09) H 12/15/19 07:06 - Upper Extremity Shoulder: Yes: Left, Pain, Swelling, Other (+ pain and swelling over midshaft clavicle and SC joint, good rom of shoulder, + cross arm adduct, nvi) Imaging - Results X-ray: Report Reviewed, Image Reviewed Ultrasound: Report Reviewed, Image Reviewed Assessment/Plan 64yM w PMHx ESRD on Hd (MWF), obesity, nonsustained/parxysmal SVT, HTN, IDDM, ESBL osteomyelitis, PVD presenting w fever, tachycardia, body aches. Had paroxysmal SVT in past in setting of infection, denies having a fib. Does not make urine. c/o left shoulder/clavicle pain and swelling. No injury or trauma. a/p -left clavicle, SC joint pain and swelling CT scan ordered to eval ROM exercises wbat LUE will follow-up after CT d/w Dr. Candelario
[2019-12-15] MEDS: SODIUM ZIRCONIUM CYCLOSILICATE (LOKELMA) 5 GM PACKET PO SCH (13:29)
--- NOTE | 2019-12-15 14:06 | PN ---
Progress Note, Physician History of Present Illness: improving looks better - Current Medication List Current Medications: Active Medications Acetaminophen (Tylenol -) 650 mg PO Q6H PRN PRN Reason: FEVER Last Admin: 12/11/19 17:30 Dose: 650 mg Atorvastatin Calcium (Lipitor -) 40 mg PO HS [facility] Last Admin: 12/14/19 21:59 Dose: 40 mg Cinacalcet (Sensipar -) 60 mg PO DAILY [facility] Last Admin: 12/14/19 10:00 Dose: 60 mg Clopidogrel Bisulfate (Plavix -) 75 mg PO DAILY [facility] Last Admin: 12/13/19 12:58 Dose: 75 mg Diltiazem HCl (Cardizem -) 60 mg PO Q6HPO [facility] Last Admin: 12/15/19 12:10 Dose: 60 mg Nafcillin Sodium 2 gm/ (Dextrose) 100 mls @ 100 mls/hr IVPB Q4H-IV [facility]; Protocol Last Admin: 12/15/19 13:33 Dose: 100 mls/hr Sodium Chloride (Normal Saline -) 250 mls @ 3,000 mls/hr IV PRN PRN PRN Reason: Hypotension during Dialysis Stop: 12/15/19 14:27 Insulin Aspart (Novolog Vial Sliding Scale -) 1 vial SQ ACHS [facility]; Protocol Last Admin: 12/15/19 11:12 Dose: 2 units Metoprolol Tartrate (Lopressor -) 25 mg PO BID [facility] Last Admin: 12/14/19 21:59 Dose: 25 mg Morphine Sulfate (Morphine Sulfate) 2 mg IVPUSH Q6H PRN PRN Reason: PAIN LEVEL 6-10 Pantoprazole Sodium (Protonix -) 40 mg PO DAILY [facility] Last Admin: 12/14/19 09:58 Dose: 40 mg Sodium Zirconium Cyclosilicate (Lokelma) 5 gm PO DAILY@1400 [facility] Last Admin: 12/15/19 13:29 Dose: 5 gm - Objective Vital Signs: Vital Signs Temperature 98.5 F 12/15/19 07:47 Pulse Rate 58 L 12/15/19 11:05 Respiratory Rate 18 12/15/19 11:05 Blood Pressure 151/85 12/15/19 11:05 O2 Sat by Pulse Oximetry (%) 98 12/15/19 07:47 Constitutional: Yes: No Distress, Calm Cardiovascular: Yes: S1, S2 Respiratory: Yes: Regular, CTA Bilaterally Gastrointestinal: Yes: Normal Bowel Sounds, Soft Musculoskeletal: Yes: WNL Extremities: Yes: WNL Neurological: Yes: Alert, Oriented Psychiatric: Yes: Alert, Oriented Labs: CBC, BMP 12/15/19 07:06 12/15/19 07:06 INR, PTT INR 2.54 (0.83-1.09) H 12/15/19 07:06 Assessment/Plan Problem List - Problems (1) Atrial fibrillation with rapid ventricular response Code(s): I48.91 - UNSPECIFIED ATRIAL FIBRILLATION (2) ESRD (end stage renal disease) Code(s): N18.6 - END STAGE RENAL DISEASE (3) Hyperkalemia Code(s): E87.5 - HYPERKALEMIA (4) New onset atrial fibrillation Code(s): I48.91 - UNSPECIFIED ATRIAL FIBRILLATION (5) Diabetes Code(s): E11.9 - TYPE 2 DIABETES MELLITUS WITHOUT COMPLICATIONS Qualifiers: Diabetes mellitus 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 male with PMH of ESRD on HD, obesity, DM, CHF, PVD, OM s/p Rt 5th toe amp, SVT/PSVT presented to the ER with fever that began during HD the day before associated with generalized weakness and body aches Sepsis Bacteremia Fever Leukocytosis New Onset AFIB ESRD on HD DM PVD Obesity CHF Hx of OM/toe plan continue abx repeat blood cx negative so far will continue to monitor rest as per the team
[2019-12-15] MEDS: PANTOPRAZOLE 40 MG TABLET PO SCH (15:25)
[2019-12-15] MEDS: CINACALCET HCL 30 MG TAB (FP) PO SCH (15:28)
[2019-12-15] MEDS: METOPROLOL TARTRATE 25 MG TABLET (FP) PO SCH ×2 (15:29→22:08)
--- NOTE | 2019-12-15 17:08 | PN ---
Progress Note, Physician History of Present Illness: Pt seen and examined at bedside. He is awake and alert. He tolerated HD today. - Current Medication List Current Medications: Active Medications Acetaminophen (Tylenol -) 650 mg PO Q6H PRN PRN Reason: FEVER Last Admin: 12/11/19 17:30 Dose: 650 mg Atorvastatin Calcium (Lipitor -) 40 mg PO HS [facility] Last Admin: 12/14/19 21:59 Dose: 40 mg Cinacalcet (Sensipar -) 60 mg PO DAILY [facility] Last Admin: 12/15/19 15:28 Dose: 60 mg Clopidogrel Bisulfate (Plavix -) 75 mg PO DAILY [facility] Last Admin: 12/13/19 12:58 Dose: 75 mg Diltiazem HCl (Cardizem -) 60 mg PO Q6HPO [facility] Last Admin: 12/15/19 12:10 Dose: 60 mg Nafcillin Sodium 2 gm/ (Dextrose) 100 mls @ 100 mls/hr IVPB Q4H-IV [facility]; Protocol Last Admin: 12/15/19 13:33 Dose: 100 mls/hr Sodium Chloride (Normal Saline -) 250 mls @ 3,000 mls/hr IV PRN PRN PRN Reason: Hypotension during Dialysis Stop: 12/15/19 14:27 Insulin Aspart (Novolog Vial Sliding Scale -) 1 vial SQ ACHS [facility]; Protocol Last Admin: 12/15/19 11:12 Dose: 2 units Metoprolol Tartrate (Lopressor -) 25 mg PO BID [facility] Last Admin: 12/15/19 15:29 Dose: 25 mg Morphine Sulfate (Morphine Sulfate) 2 mg IVPUSH Q6H PRN PRN Reason: PAIN LEVEL 6-10 Pantoprazole Sodium (Protonix -) 40 mg PO DAILY [facility] Last Admin: 12/15/19 15:25 Dose: 40 mg Sodium Zirconium Cyclosilicate (Lokelma) 5 gm PO DAILY@1400 [facility] Last Admin: 12/15/19 13:29 Dose: 5 gm Warfarin Sodium (Coumadin -) 2.5 mg PO DAILY@1800 [facility] - Objective Vital Signs: Vital Signs Temperature 98.6 F 12/15/19 14:00 Pulse Rate 115 H 12/15/19 14:00 Respiratory Rate 21 H 12/15/19 14:00 Blood Pressure 122/85 12/15/19 14:00 O2 Sat by Pulse Oximetry (%) 98 02/07/20 07:47 Constitutional: Yes: Calm Eyes: Yes: Conjunctiva Clear HENT: Yes: Atraumatic Neck: Yes: Supple, Other (left chest wall mass) Cardiovascular: Yes: S1, S2 Respiratory: Yes: CTA Bilaterally Gastrointestinal: Yes: Soft, Abdomen, Obese Genitourinary: Yes: WNL Edema: Yes Edema: LLE: Trace, RLE: Trace Neurological: Yes: Oriented Psychiatric: Yes: Oriented Labs: CBC, BMP 12/15/19 07:06 12/15/19 07:06 INR, PTT INR 2.54 (0.83-1.09) H 12/15/19 07:06 Problem List - Problems (1) ESRD (end stage renal disease) Code(s): N18.6 - END STAGE RENAL DISEASE Assessment/Plan Current Medications Generic Name Dose Route Start Last Admin Trade Name Freq PRN Reason Stop Dose Admin Acetaminophen 650 mg 12/09/19 10:59 12/11/19 17:30 Tylenol - PO 650 mg Q6H PRN Administration FEVER Atorvastatin Calcium 40 mg 12/08/19 22:00 12/14/19 21:59 Lipitor - PO 40 mg HS [facility] Administration Cinacalcet 60 mg 12/09/19 10:00 12/15/19 15:28 Sensipar - PO 60 mg DAILY [facility] Administration Clopidogrel Bisulfate 75 mg 12/09/19 10:00 12/13/19 12:58 Plavix - PO 75 mg DAILY [facility] Administration Diltiazem HCl 60 mg 12/09/19 12:00 12/15/19 12:10 Cardizem - PO 60 mg Q6HPO [facility] Administration Nafcillin Sodium 2 gm/ 100 mls @ 100 mls/hr 12/11/19 18:00 12/15/19 13:33 Dextrose IVPB 100 mls/hr Q4H-IV [facility] Administration Protocol Sodium Chloride 250 mls @ 3,000 mls/hr 12/14/19 14:27 Normal Saline - IV 12/15/19 14:27 PRN PRN Hypotension during Dialysis Insulin Aspart 1 vial 12/09/19 07:00 12/15/19 11:12 Novolog Vial Sliding Scale - SQ 2 units ACHS [facility] Administration Protocol Metoprolol Tartrate 25 mg 12/12/19 11:00 12/15/19 15:29 Lopressor - PO 25 mg BID [facility] Administration Morphine Sulfate 2 mg 12/13/19 15:26 Morphine Sulfate IVPUSH Q6H PRN PAIN LEVEL 6-10 Pantoprazole Sodium 40 mg 12/09/19 10:00 12/15/19 15:25 Protonix - PO 40 mg DAILY [facility] Administration Sodium Zirconium Cyclosilicate 5 gm 12/09/19 14:00 12/15/19 13:29 Lokelma PO 5 gm DAILY@1400 [facility] Administration Warfarin Sodium 2.5 mg 12/15/19 18:00 Coumadin - PO DAILY@1800 [facility] Microbiology 12/10/19 14:30 Blood - Pre-Dialysis Blood Culture - Final Staphylococcus Aureus 12/10/19 14:30 Blood - Pre-Dialysis Blood Culture - Final Staphylococcus Aureus 12/09/19 12:48 Blood - Peripheral Venous Blood Culture - Final Presumptive Mssa (Pbp2a Neg) 12/09/19 12:30 Blood - Peripheral Venous Blood Culture - Final Staphylococcus Aureus 12/08/19 11:15 Blood - Peripheral Venous Blood Culture - Final Staphylococcus Aureus 12/08/19 11:15 Blood - Peripheral Venous Blood Culture - Final Staphylococcus Aureus 12/12/19 09:58 Blood - Peripheral Venous Blood Culture - Preliminary NO GROWTH OBTAINED AFTER 72 HOURS, INCUBATION TO CONTINUE FOR 2 DAYS. 12/12/19 09:46 Blood - Peripheral Venous Blood Culture - Preliminary NO GROWTH OBTAINED AFTER 72 HOURS, INCUBATION TO CONTINUE FOR 2 DAYS. 1. Fever (Influenza negative, CXR w/o infiltrates) 2. Hyperkalemia 3. Tachycardia/Afib with RVR 4. ESRD on HD 5. DM 6. Hypertension 7. bacteremia 8. left chest wall mass/lesion Plan - HD today - cont abx per primary team - ultrasound report reviewed, follow up ct scan - renal diet - cont to follow cultures
[2019-12-15] MEDS: ACETAMINOPHEN 325 MG TABLET (FP) PO PRN (17:32)
[2019-12-15] MEDS ORDERED: WARFARIN NA 2.5 MG TABLET (FP) PO SCH (18:00)
[2019-12-15] MEDS ORDERED: PIPERACILLIN/TAZOBACTAM 2.25 GM VIAL IVPB ONE (20:17)
[2019-12-15] MEDS ORDERED: DEXTROSE 5%-WATER - 50 ML IVPB ONE (20:17)
[2019-12-15] MEDS: PIPERACILLIN/TAZOB 2.25 GM 2.25 GM in DEXTROSE 5%-WATER - 50 ML IVPB SCH (20:21)
[2019-12-15] MEDS ORDERED: PHYTONADIONE 10 MG/1 ML AMP SQ ONE (21:02)
--- NOTE | 2019-12-15 21:08 | PN ---
Progress Note, Physician History of Present Illness: Pt complains of lt shoulder pain and lt clavicular pain - Current Medication List Current Medications: Active Medications Acetaminophen (Tylenol -) 650 mg PO Q6H PRN PRN Reason: FEVER Last Admin: 12/15/19 17:32 Dose: 650 mg Atorvastatin Calcium (Lipitor -) 40 mg PO HS [facility] Last Admin: 12/14/19 21:59 Dose: 40 mg Cinacalcet (Sensipar -) 60 mg PO DAILY [facility] Last Admin: 12/15/19 15:28 Dose: 60 mg Clopidogrel Bisulfate (Plavix -) 75 mg PO DAILY [facility] Last Admin: 12/13/19 12:58 Dose: 75 mg Diltiazem HCl (Cardizem -) 60 mg PO Q6HPO [facility] Last Admin: 12/15/19 17:37 Dose: 60 mg Nafcillin Sodium 2 gm/ (Dextrose) 100 mls @ 100 mls/hr IVPB Q4H-IV [facility]; Protocol Last Admin: 12/15/19 17:39 Dose: 100 mls/hr Sodium Chloride (Normal Saline -) 250 mls @ 3,000 mls/hr IV PRN PRN PRN Reason: Hypotension during Dialysis Stop: 12/15/19 14:27 Piperacillin Sod/Tazobactam (Sod 2.25 gm/ Dextrose) 50 mls @ 100 mls/hr IVPB Q8H-IV [facility]; Protocol Last Admin: 12/15/19 20:21 Dose: 100 mls/hr Insulin Aspart (Novolog Vial Sliding Scale -) 1 vial SQ ACHS [facility]; Protocol Last Admin: 12/15/19 17:34 Dose: 2 units Metoprolol Tartrate (Lopressor -) 25 mg PO BID [facility] Last Admin: 12/15/19 15:29 Dose: 25 mg Morphine Sulfate (Morphine Sulfate) 2 mg IVPUSH Q6H PRN PRN Reason: PAIN LEVEL 6-10 Pantoprazole Sodium (Protonix -) 40 mg PO DAILY [facility] Last Admin: 12/15/19 15:25 Dose: 40 mg Phytonadione (Aqua Mephy[place] Injection -) 10 mg SQ ONCE ONE Stop: 12/15/19 21:03 Sodium Zirconium Cyclosilicate (Lokelma) 5 gm PO DAILY@1400 [facility] Last Admin: 12/15/19 13:29 Dose: 5 gm - Objective Vital Signs: Vital Signs Temperature 98.6 F 12/15/19 14:00 Pulse Rate 115 H 12/15/19 14:00 Respiratory Rate 21 H 12/15/19 14:00 Blood Pressure 122/85 12/15/19 14:00 O2 Sat by Pulse Oximetry (%) 98 12/15/19 07:47 Neck: Yes: WNL, Supple Cardiovascular: Yes: WNL, Regular Rate and Rhythm Respiratory: Yes: WNL, Regular, CTA Bilaterally Gastrointestinal: Yes: WNL, Normal Bowel Sounds, Soft Musculoskeletal: Yes: Other (Soft mass lt ant chest wall slightly tender to palpation) Extremities: Yes: Other (LUE AV fistula) Labs: CBC, BMP 12/15/19 07:06 12/15/19 07:06 INR, PTT INR 2.54 (0.83-1.09) H 12/15/19 07:06 Problem List - Problems (1) Abscess Assessment/Plan: CT scan chest showed Lt upper 1/3 pectoralis muscle swelling w/ foci air/gas and ?pulmonary wedge shaped ? infarct Surgical consult called(Dr Hamilton) about abnormal findings on ct scan chest/lt ant chest wall mass Spoke to surgeon and pt scheduled for OR in am Will get heme consult about abnormal coags DC coumadin Plavix on hold Will need FFP Check labs tonight and in am NPO after midnight Code(s): L02.91 - CUTANEOUS ABSCESS, UNSPECIFIED (2) Weakness Assessment/Plan: Ct scan head was unremarkable Neuro consult noted ?femoral neuropathy Code(s): R53.1 - WEAKNESS (3) Sepsis Assessment/Plan: Due to staph aureus bacteremia Repeat BC remain negative Cont IV naficillin w/ dialysis Code(s): A41.9 - SEPSIS, UNSPECIFIED ORGANISM Qualifiers: Sepsis type: sepsis due to unspecified organism Qualified Code(s): A41.9 - Sepsis, unspecified organism (4) ESRD (end stage renal disease) Assessment/Plan: Pt on dialysis As per renal Code(s): N18.6 - END STAGE RENAL DISEASE (5) New onset atrial fibrillation Assessment/Plan: ?Due to sepsis/fever/Pt is allergic to pork therefore cannot use heparin Also cannot use new AC's meds due to ESRD Hold coumadin and monitor pt/inr Cont metoprolol/cardizem Code(s): I48.91 - UNSPECIFIED ATRIAL FIBRILLATION (6) HTN (hypertension) Code(s): I10 - ESSENTIAL (PRIMARY) HYPERTENSION (7) Diabetes Assessment/Plan: Cont sliding scale w/ coverage Code(s): E11.9 - TYPE 2 DIABETES MELLITUS WITHOUT COMPLICATIONS Qualifiers: Diabetes mellitus care home insulin use: unspecified care home insulin use status Diabetes mellitus complication status: with circulatory complication (8) Obesity Code(s): E66.9 - OBESITY, UNSPECIFIED
--- NOTE | 2019-12-15 21:16 | PN ---
Progress Note, Physician Chief Complaint: Pt A&Ox3; still feels weak in right leg; left upper chest pain that is constant. His is at bedside. History of Present Illness: 64yM w PMHx ESRD on Hd (MWF), obesity, nonsustained/paroxysmal SVT, HTN, diastolic CHF, IDDM, ESBL osteomyelitis/s/p right 5th toe amputation, PVD, obesity (once weighed 400 lbs; with attention to food and "trying hard to exercise"; he has reduced to 280 lbs over the past few years), ?sleep apnea, presenting w fever, tachycardia, body aches starting yesterday. Been having 3-5 episodes of diarrhea ongoing for past month. Had paroxysmal SVT in past in setting of infection; denies having AF. Does not make urine. Denies cough, nasal congestion, chest pain, SOB, AB pain. PMD: Dr. Jameel Jauregui Cardiologsit: Dr. Jayne Odom - Current Medication List Current Medications: Active Medications Acetaminophen (Tylenol -) 650 mg PO Q6H PRN PRN Reason: FEVER Last Admin: 12/15/19 17:32 Dose: 650 mg Atorvastatin Calcium (Lipitor -) 40 mg PO HS [facility] Last Admin: 12/14/19 21:59 Dose: 40 mg Cinacalcet (Sensipar -) 60 mg PO DAILY [facility] Last Admin: 12/15/19 15:28 Dose: 60 mg Clopidogrel Bisulfate (Plavix -) 75 mg PO DAILY [facility] Last Admin: 12/13/19 12:58 Dose: 75 mg Diltiazem HCl (Cardizem -) 60 mg PO Q6HPO [facility] Last Admin: 12/15/19 17:37 Dose: 60 mg Nafcillin Sodium 2 gm/ (Dextrose) 100 mls @ 100 mls/hr IVPB Q4H-IV [facility]; Protocol Last Admin: 12/15/19 17:39 Dose: 100 mls/hr Sodium Chloride (Normal Saline -) 250 mls @ 3,000 mls/hr IV PRN PRN PRN Reason: Hypotension during Dialysis Stop: 12/15/19 14:27 Piperacillin Sod/Tazobactam (Sod 2.25 gm/ Dextrose) 50 mls @ 100 mls/hr IVPB Q8H-IV [facility]; Protocol Last Admin: 02/07/20 20:21 Dose: 100 mls/hr Insulin Aspart (Novolog Vial Sliding Scale -) 1 vial SQ ACHS [facility]; Protocol Last Admin: 12/15/19 17:34 Dose: 2 units Metoprolol Tartrate (Lopressor -) 25 mg PO BID [facility] Last Admin: 12/15/19 15:29 Dose: 25 mg Morphine Sulfate (Morphine Sulfate) 2 mg IVPUSH Q6H PRN PRN Reason: PAIN LEVEL 6-10 Pantoprazole Sodium (Protonix -) 40 mg PO DAILY [facility] Last Admin: 12/15/19 15:25 Dose: 40 mg Sodium Zirconium Cyclosilicate (Lokelma) 5 gm PO DAILY@1400 [facility] Last Admin: 12/15/19 13:29 Dose: 5 gm - Objective Vital Signs: Vital Signs Temperature 98.6 F 12/15/19 14:00 Pulse Rate 115 H 12/15/19 14:00 Respiratory Rate 21 H 12/15/19 14:00 Blood Pressure 122/85 12/15/19 14:00 O2 Sat by Pulse Oximetry (%) 98 12/15/19 07:47 Constitutional: Yes: Calm, Obese Eyes: Yes: WNL HENT: Yes: WNL Neck: Yes: WNL Cardiovascular: Yes: S1, S2 Respiratory: Yes: WNL Gastrointestinal: Yes: Soft ...Rectal Exam: Yes: Deferred Genitourinary: No: Anuria Breast(s): Yes: WNL Musculoskeletal: Yes: Muscle Pain, Other (left upper chest wall tenderness) Extremities: Yes: Cool, Other (Foot: right pinky amputation) Edema: No Peripheral Pulses WNL: No Peripheral Pulses: Left Doralis Pedis: 1+, Right Dorsalis Pedis: 1+ Integumentary: Yes: Venous Stasis Changes Neurological: Yes: Alert, Oriented, Weakness ...Motor Strength: RLE (markedly decreased strength) Psychiatric: Yes: Alert, Oriented Labs: CBC, BMP 12/15/19 07:06 12/15/19 07:06 INR, PTT INR 2.54 (0.83-1.09) H 12/15/19 07:06 - ....Imaging Other: Image Reviewed (telemetry: AF) Problem List - Problems (1) New onset atrial fibrillation Assessment/Plan: EKG: AF with RVR. Pt has no prior hx of AF. ECHO: 2017, and again 12/2019, shows mild-moderately reduced LVEF (40-45%); now with severely dilated LA; mild-moderate TR. Plan: Metoprolol increased to 25 mg bid (plan to change to carvedilol, given better efficacy with hemodialysis); on diltiazem 60 mg q6h (given reduced LVEF, will attempt to gradually come off diltiazem); (increase as needed, and as tolerated by BP and HR).for AF, HR control, systolic CHF, and BP. Now off Clonidine. Start additional meds for systolic CHF, beginnng with lisinopril. For hemodialysis. On warfarin: INR suprtherapeutic-->hold medication. Code(s): I48.91 - UNSPECIFIED ATRIAL FIBRILLATION (2) Amputated toe of right foot Assessment/Plan: PAD. Will need vascular workup, which may be done as outpatient. Code(s): S98.131A - COMPLETE TRAUMATIC AMPUTATION OF ONE RIGHT LESSER TOE, INIT (3) Dialysis patient Assessment/Plan: hemodialysis 3x/wk per program engineer. Code(s): Z99.2 - DEPENDENCE ON RENAL DIALYSIS (4) HTN (hypertension) Code(s): I10 - ESSENTIAL (PRIMARY) HYPERTENSION (5) SOB (shortness of breath) Code(s): R06.02 - SHORTNESS OF BREATH (6) Sepsis Code(s): A41.9 - SEPSIS, UNSPECIFIED ORGANISM Qualifiers: Sepsis type: sepsis due to unspecified organism Qualified Code(s): A41.9 - Sepsis, unspecified organism (7) Type 2 diabetes mellitus with foot ulcer Code(s): E11.621 - TYPE 2 DIABETES MELLITUS WITH FOOT ULCER; L97.509 - NON- PRESSURE CHRONIC ULCER OTH PRT UNSP FOOT W UNSP SEVERITY (8) Elevated troponin I measurement Assessment/Plan: TNI 0.02-->0.37-->0.32; CK became elevated, but low CKMB relative index. EKG: AF; no significant STT abnormalities. ECHO: mildly decreased LVEF. Demand ischemia from multiple contributors, including AF with RVR, Systolic CHF , pain.fever. Communication with pt's automotive sales professional: Stress MIBI 12/2017: no ischemia; possible inferior wall infarct; reduced LVEF. Code(s): R74.8 - ABNORMAL LEVELS OF OTHER SERUM ENZYMES (9) Weakness Assessment/Plan: CT head: no acute pathology. Neurology w/u in progress: right femoral mononeuropathy; diabetic peripheral neuropathy. Code(s): R53.1 - WEAKNESS (10) [place] cardiac risk >20% in next 10 years Assessment/Plan: Pt had stress MIBI 12/26: no ischemia. Now with elevated TNI, atypical chest pain. Plan for further evaluation of coronary arteries when stable (CVA presently being ruled out; AF with periods of RVR). Code(s): Z91.89 - [facility] PERSONAL RISK FACTORS, NOT ELSEWHERE CLASSIFIED (11) Systolic CHF Assessment/Plan: 12/2019 ECHO: mildly reduced LVEF (40-45%). (12/26 gated studies on stress MIBI: 33% LVEF). Start lisinopril. On beta blockers. On diltiazem, but plan to taper off (reduced LVEF) once beta ema dose is optimized, and if HR allows F/u BUN/Cr, electrolytes, daily weight, Is and Os. Code(s): I50.20 - UNSPECIFIED SYSTOLIC (CONGESTIVE) HEART FAILURE (12) Chest wall pain Assessment/Plan: tender left upper chest wall; r/u inflammatory process, PE; ?tumor. F/u studies (CXR specific for bones, or CT chest). Code(s): R07.89 - OTHER CHEST PAIN
--- NOTE | 2019-12-15 22:04 | PN ---
Progress Note (short form) - Note Progress Note: PAtient seen and examined LEft infraclavicular pain Unable to lift rt. leg Last Vital Signs Temp Pulse Resp BP Pulse Ox 98.6 F 115 H 21 H 122/85 98 12/15/19 14:00 12/15/19 14:00 12/15/19 14:00 12/15/19 14:00 12/15/19 07:47 Cor: RSR, No murmurs, No gallops Lungs: Clear to P&A Abd: Soft, Normal bowel sounds, No organomegaly Ext:No significant edema Abnormal Lab Results 12/15/19 12/15/19 12/15/19 07:06 07:06 07:06 Hct 35.2 L RDW 16.2 H Monocytes % Eosinophils % PT with INR 30.30 H INR 2.54 H PTT (Actin FS) Sodium 134 L Chloride 93 L BUN 55.1 H Creatinine 8.6 H* Random Glucose 185 H Calcium 8.1 L Phosphorus 6.2 H Total Bilirubin Alkaline Phosphatase Total Protein Albumin 12/15/19 12/15/19 12/15/19 21:45 21:45 21:45 Hct RDW 16.6 H Monocytes % 10.9 H Eosinophils % 5.1 H PT with INR 22.40 H INR 1.89 H PTT (Actin FS) 39.3 H Sodium Chloride BUN 27.8 H Creatinine 5.8 H Random Glucose 187 H Calcium 7.9 L Phosphorus Total Bilirubin 2.0 H Alkaline Phosphatase 237 H Total Protein 6.1 L Albumin 1.9 L Active Medications Generic Name Dose Route Start Last Admin Trade Name Freq PRN Reason Stop Dose Admin Acetaminophen 650 mg 12/09/19 10:59 12/15/19 17:32 Tylenol - PO 650 mg Q6H PRN Administration FEVER Atorvastatin Calcium 40 mg 12/08/19 22:00 12/15/19 22:08 Lipitor - PO 40 mg HS [facility] Administration Cinacalcet 60 mg 12/09/19 10:00 12/15/19 15:28 Sensipar - PO 60 mg DAILY [facility] Administration Clopidogrel Bisulfate 75 mg 12/09/19 10:00 12/13/19 12:58 Plavix - PO 75 mg DAILY [facility] Administration Diltiazem HCl 60 mg 12/09/19 12:00 12/15/19 23:06 Cardizem - PO 60 mg Q6HPO [facility] Administration Nafcillin Sodium 2 gm/ 100 mls @ 100 mls/hr 12/11/19 18:00 12/15/19 22:08 Dextrose IVPB 100 mls/hr Q4H-IV [facility] Administration Protocol Sodium Chloride 250 mls @ 3,000 mls/hr 12/14/19 14:27 Normal Saline - IV 12/15/19 14:27 PRN PRN Hypotension during Dialysis Piperacillin Sod/Tazobactam 50 mls @ 100 mls/hr 12/15/19 19:45 12/15/19 20:21 Sod 2.25 gm/ Dextrose IVPB 100 mls/hr Q8H-IV [facility] Administration Protocol Insulin Aspart 1 vial 12/09/19 07:00 12/15/19 22:11 Novolog Vial Sliding Scale - SQ 2 units ACHS [facility] Administration Protocol Metoprolol Tartrate 25 mg 12/12/19 11:00 12/15/19 22:08 Lopressor - PO 25 mg BID [facility] Administration Morphine Sulfate 2 mg 12/13/19 15:26 Morphine Sulfate IVPUSH Q6H PRN PAIN LEVEL 6-10 Pantoprazole Sodium 40 mg 12/09/19 10:00 12/15/19 15:25 Protonix - PO 40 mg DAILY [facility] Administration Sodium Zirconium Cyclosilicate 5 gm 12/09/19 14:00 12/15/19 13:29 Lokelma PO 5 gm DAILY@1400 [facility] Administration A/P 64yM w PMHx ESRD on Hd (MWF), obesity, nonsustained/parxysmal SVT, HTN, IDDM, ESBL osteomyelitis, PVD presenting w 1d fever, tachycardia, body aches and 1mo diarrhea. New onset afib/.RVR 1. Fever / S. aureus bacteremia 2. Hyperkalemia 3. Tachycardia/Afib with RVR 4. ESRD on HD 5. DM 6. Hypertension 7. Rt. femoral mononeuropathy---being worked up 8. Jehovahs witness Infection of left pectoralis major --on antibiotcs per ID Afib/elevated INR Coumadin on hold INR --2.5 Getting vit. K 10mg Patient refusing any blood products, even if he were to be in a life threatening situation and was facing imminent . Disucsed that the infection is potentially life threatenong and surgery may need blood product support as he had nehal on plavix up until 11/12 and has elevated INR and may need FFP, platelets and PRBC suport. He is refusing any kinfd of blood prodult. Will give vit. K 10mg to reverse INR. Would discuss with surgery and would consider it early next week -- 5days since last doese of plavix if possible. May need heparin bridge for afib per crdiology Monitor CBC/PT/PTT
[2019-12-15 22:07] LABS: BASO % 0.7 % (0-2.0); EOS % 5.1 % (0-4.5); HEMATOCRIT 35.6 % (35.4-49); MCH 29.1 pg (25.7-33.7); MCHC 33.6 g/dl (32.0-35.9); MEAN CELL VOLUME 86.6 fl (80-96); MEAN PLT VOLUME 9.1 fl (7.5-11.1); MONO % 10.9 % (3.8-10.2); NEUT % 73.3 % (42.8-82.8); PLATELET COUNT 207 K/MM3 (134-434); RBC 4.11 M/mm3 (4.00-5.60); RDW 16.6 % (11.9-15.9); WHITE BLOOD COUNT 8.3 K/mm3 (4.0-10.0)
[2019-12-15] MEDS: ATORVASTATIN CA 40 MG TABLET (FP) PO SCH (22:08)
[2019-12-15 22:22] LABS: INR 1.89 (0.83-1.09); PROTHROMBIN TIME (PATIENT) 22.4 SEC (9.7-13.0)
[2019-12-15 22:24] LABS: ACTIVATED PTT 39.3 SECONDS (25.2-36.5)
[2019-12-15 22:38] LABS: ALBUMIN 1.9 g/dl (3.4-5.0); BLOOD UREA NITROGEN 27.8 mg/dL (7-18); CALCIUM 7.9 mg/dL (8.5-10.1); CREATININE 5.8 mg/dL (0.55-1.3); POTASSIUM 3.8 mmol/L (3.5-5.1); TOT PROT 6.1 g/dl (6.4-8.2)
[2019-12-16] MEDS ORDERED: DEXTROSE 5%-WATER - 50 ML IVPB ONE ×3 (00:48→17:02)
[2019-12-16] MEDS ORDERED: PIPERACILLIN/TAZOBACTAM 2.25 GM VIAL IVPB ONE ×3 (00:48→17:02)
[2019-12-16] MEDS: PIPERACILLIN/TAZOB 2.25 GM 2.25 GM in DEXTROSE 5%-WATER - 50 ML IVPB SCH ×3 (02:01→18:20)
[2019-12-16] MEDS: NAFCILLIN - 2 GM in DEXTROSE 5%-WATER - 100 ML IVPB SCH ×6 (02:02→22:32)
[2019-12-16] MEDS: INSULIN SLIDING SCALE (NOVOLOG) 1 VIAL SQ SCH ×4 (06:37→22:32)
[2019-12-16] MEDS: dilTIAZem HCL 60 MG TABLET (FP) PO SCH ×3 (06:45→18:21)
--- NOTE | 2019-12-16 07:58 | CONSULT ---
Consult Consult Specialty:: surgery Reason for Consultation:: chest wall pain - History of Present Illness Chief Complaint: pain History of Present Illness: 64 yr old with hx of Afib, ESRD admitted 1 week ago for rapid afib on plavix and coumadin assked to evaluate patient for chest wall pain and A cT scan performed showed a collection with presence of air in the anterior axillary region of the left cheswt wall - Past Medical History Cardio/Vascular: Yes: HTN Renal/: Yes: Renal Failure Infectious Disease: Yes: Other (osteomyelitis) Endocrine: Yes: Diabetes Mellitus - Past Surgical History Past Surgical History: Yes: Amputation (right 5th toe), AV Fistula/Graft - Alcohol/Substance Use Hx Alcohol Use: No - Smoking History Smoking history: Never smoked Have you smoked in the past 12 months: No Aproximately how many cigarettes per day: 0 Home Medications - Allergies Allergies/Adverse Reactions: Allergies Allergy/AdvReac Type Severity Reaction Status Date / Time Pork/Porcine Containing Allergy Verified 12/08/19 10:51 Products - Home Medications Home Medications: Ambulatory Orders Cinacalcet HCl [Sensipar] 60 mg PO DAILY 09/28/14 Hum Insulin NPH/Reg Insulin Hm [Novolin 70-30 U100 Cartridge] 40 unit SQ BID Atorvastatin Ca [Lipitor] 40 mg PO HS #30 tablet 10/03/14 cloNIDine HCL [Catapres -] 0.1 mg PO BID #60 tablet 10/03/14 Metoclopramide HCl [Reglan] 5 mg PO TID #0 tablet 04/28/16 Pantoprazole Sodium [Protonix] 40 mg PO DAILY #0 tablet. 04/28/16 Sevelamer Carbonate [Renvela -] 2,400 mg PO TID 04/28/16 Ammonium Lactate Lotion [Lac-Hydrin 12] 1 applic TP BID PRN bottle 02/08/18 Metoprolol Tartrate [Lopressor -] 25 mg PO BID tablet 02/28/18 Clopidogrel Bisulfate [Plavix] 75 mg PO DAILY #30 tablet 08/19/18 Physical Exam Vital Signs: Vital Signs Temperature 97.8 F 12/16/19 02:00 Pulse Rate 104 H 12/16/19 06:00 Respiratory Rate 20 12/16/19 06:00 Blood Pressure 134/77 12/16/19 06:00 O2 Sat by Pulse Oximetry (%) 98 12/15/19 07:47 Labs: CBC, BMP 12/15/19 21:45 12/15/19 21:45 Imaging - Results Cat Scan: Report Reviewed, Image Reviewed Problem List - Problems (1) Abscess Code(s): L02.91 - CUTANEOUS ABSCESS, UNSPECIFIED Assessment/Plan 64 yr old male with a abcess in the Left anterior chest wall that needs I&D Patient recieved FFP last pm and INR remains elevated and in addition he has also been on Plavyx. Patient has refused FFP because he is a Bahai Given that he is efebrile and hemodynamically stable I will awaitng until normalization of coags (tomorrow hopefully for I&D) recommend 2 more doses of Vit k today
[2019-12-16] MEDS ORDERED: PT OWN MED DRAWER 7, Y5N ONE ×3 (08:32→21:58)
--- NOTE | 2019-12-16 09:40 | CON.ORTH ---
Consult Consult Specialty:: Orthopedics Reason for Consultation:: Left shoulder pain - History of Present Illness Chief Complaint: Left shoulder pain History of Present Illness: This is a 64 yo male with PMHx of ESRD, Afib, HTN, DM, PVD, osteomyelitis who w as admitted for sepsis workup. Patient complaining of left shoulder pain during his stay. He notes the pain began 1 week ago with an associated mass that he states has grown in size since its onset. Patient points to his chest wall when asked where most of his pain is. Notes no pain with movement of left shoulder. Denies any pain to the rest of left upper extremity, numbness or tingling. Patient notes previous rotator cuff repair more than 20 years ago on same shoulder. - History Source History Provided By: Patient Limitations to Obtaining History: No Limitations - Past Medical History Cardio/Vascular: Yes: HTN Renal/: Yes: Renal Failure Infectious Disease: Yes: Other (osteomyelitis) Endocrine: Yes: Diabetes Mellitus - Past Surgical History Past Surgical History: Yes: Amputation (right 5th toe), AV Fistula/Graft - Alcohol/Substance Use Hx Alcohol Use: No - Smoking History Smoking history: Never smoked Have you smoked in the past 12 months: No Aproximately how many cigarettes per day: 0 Home Medications - Allergies Allergies/Adverse Reactions: Allergies Allergy/AdvReac Type Severity Reaction Status Date / Time Pork/Porcine Containing Allergy Verified 12/08/19 10:51 Products - Home Medications Home Medications: Ambulatory Orders Cinacalcet HCl [Sensipar] 60 mg PO DAILY 09/28/14 Hum Insulin NPH/Reg Insulin Hm [Novolin 70-30 U100 Cartridge] 40 unit SQ BID 09/28/14 Atorvastatin Ca [Lipitor] 40 mg PO HS #30 tablet 10/03/14 cloNIDine HCL [Catapres -] 0.1 mg PO BID #60 tablet 10/03/14 Metoclopramide HCl [Reglan] 5 mg PO TID #0 tablet 04/28/16 Pantoprazole Sodium [Protonix] 40 mg PO DAILY #0 tablet. 04/28/16 Sevelamer Carbonate [Renvela -] 2,400 mg PO TID 04/28/16 Ammonium Lactate Lotion [Lac-Hydrin 12] 1 applic TP BID PRN bottle 02/08/18 Metoprolol Tartrate [Lopressor -] 25 mg PO BID tablet 02/28/18 Clopidogrel Bisulfate [Plavix] 75 mg PO DAILY #30 tablet 08/19/18 Review of Systems - Review of Systems Musculoskeletal: reports: Other (Left shoulder pain) Physical Exam for Ortho Vital Signs: Vital Signs Temperature 97.8 F 12/16/19 02:00 Pulse Rate 104 H 12/16/19 06:00 Respiratory Rate 20 12/16/19 06:00 Blood Pressure 134/77 12/16/19 06:00 O2 Sat by Pulse Oximetry (%) 98 12/15/19 07:47 Labs: CBC, BMP 12/15/19 21:45 12/15/19 21:45 INR, PTT INR 1.89 (0.83-1.09) H 12/15/19 21:45 - Upper Extremity Shoulder: Yes: Left (Healed surgical scar to anterior shoulder. Fistula in place to left upper arm. No increased warmth or erythema. Nontender throughout shoulder and upper extremity. Full pain free ROM of shoulder, elbow, wrist and hand. NVID.) Imaging - Results X-ray: Report Reviewed, Image Reviewed (2 views of left shoulder shows mild degenerative changes without evidence of fracture, dislocation or other acute pathology) Cat Scan: Report Reviewed (Chest wall CT shows focal swelling at the i nfraclavicular level of pectoralis major muscle with prescence of air suggestive of infection), Image Reviewed Assessment/Plan 64 yo M with PMHx of ESRD, Afib, HTN, DM, PVD, osteomyelitis who was admitted for sepsis workup complaining of left shoulder pain x 1 week. -XR of left shoulder shows mild DJD without fracture or dislocation -Chest wall CT shows focal swelling of pectoralis major muscle suggestive of abscess -Patient has full pain free ROM of left shoulder -Shoulder pain most likely due to chest wall abscess seen on CT -Does not appear to have any joint involvement -Seen by generally surgery with plan for I&D tomorrow -Please reconsult as needed
[2019-12-16] MEDS ORDERED: METOPROLOL TARTRATE 50 MG TABLET (FP) PO SCH (09:53)
[2019-12-16] MEDS: PANTOPRAZOLE 40 MG TABLET PO SCH (10:09)
--- NOTE | 2019-12-16 10:09 | PN ---
Progress Note, Physician Chief Complaint: Pt A&Ox3; no significant changes; still feels pain in left upper chest wall. Not dyspneic. History of Present Illness: 64yM w PMHx ESRD on Hd (MWF), obesity, nonsustained/paroxysmal SVT, HTN, diastolic CHF, IDDM, ESBL osteomyelitis/s/p right 5th toe amputation, PVD, obesity (once weighed 400 lbs; with attention to food and "trying hard to exercise"; he has reduced to 280 lbs over the past few years), ?sleep apnea, presenting w fever, tachycardia, body aches starting yesterday. Been having 3-5 episodes of diarrhea ongoing for past month. Had paroxysmal SVT in past in setting of infection; denies having AF. Does not make urine. Denies cough, nasal congestion, chest pain, SOB, AB pain. PMD: Dr. Jameel Jauregui Cardiologsit: Dr. Jayne Odom - Current Medication List Current Medications: Active Medications Acetaminophen (Tylenol -) 650 mg PO Q6H PRN PRN Reason: FEVER Last Admin: 12/15/19 17:32 Dose: 650 mg Atorvastatin Calcium (Lipitor -) 40 mg PO HS [facility] Last Admin: 12/15/19 22:08 Dose: 40 mg Carvedilol (Coreg -) 25 mg PO BID [facility] Cinacalcet (Sensipar -) 60 mg PO DAILY [facility] Last Admin: 12/15/19 15:28 Dose: 60 mg Clopidogrel Bisulfate (Plavix -) 75 mg PO DAILY [facility] Last Admin: 12/13/19 12:58 Dose: 75 mg Diltiazem HCl (Cardizem -) 60 mg PO Q6HPO [facility] Last Admin: 12/16/19 06:45 Dose: 60 mg Nafcillin Sodium 2 gm/ (Dextrose) 100 mls @ 100 mls/hr IVPB Q4H-IV [facility]; Protocol Last Admin: 12/16/19 06:46 Dose: 100 mls/hr Sodium Chloride (Normal Saline -) 250 mls @ 3,000 mls/hr IV PRN PRN PRN Reason: Hypotension during Dialysis Stop: 12/15/19 14:27 Piperacillin Sod/Tazobactam (Sod 2.25 gm/ Dextrose) 50 mls @ 100 mls/hr IVPB Q8H-IV [facility]; Protocol Last Admin: 12/16/19 02:01 Dose: 100 mls/hr Insulin Aspart (Novolog Vial Sliding Scale -) 1 vial SQ ACHS [facility]; Protocol Last Admin: 12/16/19 06:37 Dose: Not Given Morphine Sulfate (Morphine Sulfate) 2 mg IVPUSH Q6H PRN PRN Reason: PAIN LEVEL 6-10 Pantoprazole Sodium (Protonix -) 40 mg PO DAILY [facility] Last Admin: 12/15/19 15:25 Dose: 40 mg Sodium Zirconium Cyclosilicate (Lokelma) 5 gm PO DAILY@1400 [facility] Last Admin: 12/15/19 13:29 Dose: 5 gm - Objective Vital Signs: Vital Signs Temperature 97.8 F 12/16/19 02:00 Pulse Rate 104 H 12/16/19 06:00 Respiratory Rate 20 12/16/19 06:00 Blood Pressure 134/77 12/16/19 06:00 O2 Sat by Pulse Oximetry (%) 98 12/15/19 07:47 Constitutional: Yes: Anxious, Obese Eyes: Yes: WNL HENT: Yes: WNL Neck: Yes: WNL Cardiovascular: Yes: Pulse Irregular, S1 (varies in intensity), S2 Respiratory: Yes: Regular Gastrointestinal: Yes: Soft, Abdomen, Obese. No: Tenderness ...Rectal Exam: Yes: Deferred Genitourinary: No: Anuria Breast(s): Yes: WNL Musculoskeletal: Yes: Muscle Pain, Muscle Weakness, Other (left UQ chest wall tenderness) Extremities: Yes: Cool, Other (right toe amputation) Edema: No Peripheral Pulses WNL: No Peripheral Pulses: Left Doralis Pedis: 1+, Right Dorsalis Pedis: 1+ Integumentary: Yes: Venous Stasis Changes Neurological: Yes: Alert, Oriented, Weakness Psychiatric: Yes: Alert, Oriented, Other (anxiety) Labs: CBC, BMP 12/15/19 21:45 12/15/19 21:45 INR, PTT INR 1.89 (0.83-1.09) H 12/15/19 21:45 - ....Imaging Ultrasound: Image Reviewed (LUE: no DVT; +suspicious lesion; CT recommended) Problem List - Problems (1) New onset atrial fibrillation Assessment/Plan: EKG: AF with RVR. Pt has no prior hx of AF. ECHO: 2017, and again 12/2019, shows mild-moderately reduced LVEF (40-45%); now with severely dilated LA; mild-moderate TR. Plan: Metoprolol increased to 25 mg bid (plan to change to carvedilol, given better efficacy with hemodialysis); on diltiazem 60 mg q6h (given reduced LVEF, will attempt to gradually come off diltiazem); (increase as needed, and as tolerated by BP and HR).for AF, HR control, systolic CHF, and BP. Now off Clonidine. Start additional meds for systolic CHF, beginnng with lisinopril. For hemodialysis. Code(s): I48.91 - UNSPECIFIED ATRIAL FIBRILLATION (2) Amputated toe of right foot Assessment/Plan: PAD. Will need vascular workup, which may be done as outpatient. Code(s): S98.131A - COMPLETE TRAUMATIC AMPUTATION OF ONE RIGHT LESSER TOE, INIT (3) Dialysis patient Assessment/Plan: hemodialysis 3x/wk per property appraiser. Code(s): Z99.2 - DEPENDENCE ON RENAL DIALYSIS (4) HTN (hypertension) Code(s): I10 - ESSENTIAL (PRIMARY) HYPERTENSION (5) SOB (shortness of breath) Code(s): R06.02 - SHORTNESS OF BREATH (6) Sepsis Code(s): A41.9 - SEPSIS, UNSPECIFIED ORGANISM Qualifiers: Sepsis type: sepsis due to unspecified organism Qualified Code(s): A41.9 - Sepsis, unspecified organism (7) Type 2 diabetes mellitus with foot ulcer Code(s): E11.621 - TYPE 2 DIABETES MELLITUS WITH FOOT ULCER; L97.509 - NON- PRESSURE CHRONIC ULCER OTH PRT UNSP FOOT W UNSP SEVERITY (8) Elevated troponin I measurement Assessment/Plan: TNI 0.02-->0.37-->0.32; CK became elevated, but low CKMB relative index. EKG: AF; no significant STT abnormalities. ECHO: mildly decreased LVEF. Demand ischemia from multiple contributors, including AF with RVR, Systolic CHF , pain.fever. Communication with pt's marketing project coordinator: Hx coronary artery stent: ?2016; on ASA and clopidogrel. Stress MIBI 12/2017: no ischemia; possible inferior wall infarct; reduced LVEF. Code(s): R74.8 - ABNORMAL LEVELS OF OTHER SERUM ENZYMES (9) Weakness Assessment/Plan: CT head: no acute pathology. Neurology w/u in progress: right femoral mononeuropathy; diabetic peripheral neuropathy. Code(s): R53.1 - WEAKNESS (10) [place] cardiac risk >20% in next 10 years Assessment/Plan: Pt had stress MIBI 12/26: no ischemia. Now with elevated TNI, atypical chest pain. Plan for further evaluation of coronary arteries when stable (CVA presently being ruled out; AF with periods of RVR). Code(s): Z91.89 - [facility] PERSONAL RISK FACTORS, NOT ELSEWHERE CLASSIFIED (11) Systolic CHF Assessment/Plan: 12/2019 ECHO: mildly reduced LVEF (40-45%). (12/26 gated studies on stress MIBI: 33% LVEF). Start lisinopril. On beta blockers (change to carvedilol). On diltiazem, but plan to taper off (reduced LVEF) once beta ema dose is optimized, and if HR allows. F/u BUN/Cr, electrolytes, daily weight, Is and Os. Code(s): I50.20 - UNSPECIFIED SYSTOLIC (CONGESTIVE) HEART FAILURE (12) Chest wall pain Assessment/Plan: Await CT chest (LUE US noted suspicious lesion). Code(s): R07.89 - OTHER CHEST PAIN
[2019-12-16] MEDS: CINACALCET HCL 30 MG TAB (FP) PO SCH (10:10)
[2019-12-16] MEDS: CARVEDILOL 25 MG TABLET (FP) PO SCH ×2 (10:14→21:37)
--- NOTE | 2019-12-16 10:18 | PN ---
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 Been having 3-5 episodes of diarrhea ongoing for past month. Had paroxysmal SVT in past in setting of infection; denies having AF. Does not make urine. Denies cough, nasal congestion, chest pain, SOB, AB pain. PMD: Dr. Jameel Jauregui Cardiologsit: Dr. Jayne Odom - Current Medication List Current Medications: Active Medications Acetaminophen (Tylenol -) 650 mg PO Q6H PRN PRN Reason: FEVER Last Admin: 12/15/19 17:32 Dose: 650 mg Atorvastatin Calcium (Lipitor -) 40 mg PO HS [facility] Last Admin: 12/15/19 22:08 Dose: 40 mg Carvedilol (Coreg -) 25 mg PO BID [facility] Cinacalcet (Sensipar -) 60 mg PO DAILY [facility] Last Admin: 12/16/19 10:10 Dose: 60 mg Clopidogrel Bisulfate (Plavix -) 75 mg PO DAILY [facility] Last Admin: 12/13/19 12:58 Dose: 75 mg Diltiazem HCl (Cardizem -) 60 mg PO Q6HPO [facility] Last Admin: 12/16/19 06:45 Dose: 60 mg Nafcillin Sodium 2 gm/ (Dextrose) 100 mls @ 100 mls/hr IVPB Q4H-IV [facility]; Protocol Last Admin: 12/16/19 10:04 Dose: 100 mls/hr Sodium Chloride (Normal Saline -) 250 mls @ 3,000 mls/hr IV PRN PRN PRN Reason: Hypotension during Dialysis Stop: 12/15/19 14:27 Piperacillin Sod/Tazobactam (Sod 2.25 gm/ Dextrose) 50 mls @ 100 mls/hr IVPB Q8H-IV [facility]; Protocol Last Admin: 12/16/19 10:05 Dose: 100 mls/hr Insulin Aspart (Novolog Vial Sliding Scale -) 1 vial SQ ACHS [facility]; Protocol Last Admin: 12/16/19 06:37 Dose: Not Given Morphine Sulfate (Morphine Sulfate) 2 mg IVPUSH Q6H PRN PRN Reason: PAIN LEVEL 6-10 Pantoprazole Sodium (Protonix -) 40 mg PO DAILY [facility] Last Admin: 12/16/19 10:09 Dose: 40 mg Sodium Zirconium Cyclosilicate (Lokelma) 5 gm PO DAILY@1400 [facility] Last Admin: 12/15/19 13:29 Dose: 5 gm - Objective Vital Signs: Vital Signs Temperature 97.8 F 12/16/19 02:00 Pulse Rate 104 H 12/16/19 06:00 Respiratory Rate 20 12/16/19 06:00 Blood Pressure 134/77 12/16/19 06:00 O2 Sat by Pulse Oximetry (%) 98 12/15/19 07:47 Constitutional: Yes: No Distress, Obese, Other (flat affect) Eyes: Yes: WNL HENT: Yes: WNL Neck: Yes: WNL Cardiovascular: Yes: Pulse Irregular Respiratory: Yes: WNL Gastrointestinal: Yes: Soft, Abdomen, Obese. No: Tenderness ...Rectal Exam: Yes: Deferred Genitourinary: No: Anuria Breast(s): Yes: WNL Musculoskeletal: Yes: Muscle Weakness Extremities: Yes: Cool Edema: No Peripheral Pulses WNL: No Peripheral Pulses: Left Doralis Pedis: 1+, Right Dorsalis Pedis: 1+ Integumentary: Yes: Venous Stasis Changes Wound/Incision: Yes: Other (s/p right 5th toe amputation) Neurological: Yes: Alert, Oriented, Weakness Psychiatric: Yes: Other (anxiety/depression) Labs: CBC, BMP 12/15/19 21:45 12/15/19 21:45 INR, PTT INR 1.89 (0.83-1.09) H 12/15/19 21:45 Abnormal Lab Results 12/17/19 05:12 PT with INR 16.40 H INR 1.39 H - ....Imaging Cat Scan: Image Reviewed Problem List - Problems (1) New onset atrial fibrillation Assessment/Plan: Telemetry today: AF; 5 beat run of wide-complex tachycardia. Plan: Change metoprolol to carvedilol 25 mg bid. On diltiazem 60 mg q6h; plan to taper off if HR and rhythm stabilize. Plan to add lisinopril. Maintain electrolytes WNL. Code(s): I48.91 - UNSPECIFIED ATRIAL FIBRILLATION (2) Amputated toe of right foot Assessment/Plan: PAD. Will need vascular workup, which may be done as outpatient. Code(s): S98.131A - COMPLETE TRAUMATIC AMPUTATION OF ONE RIGHT LESSER TOE, INIT (3) Dialysis patient Assessment/Plan: hemodialysis 3x/wk per data entry coordinator. Code(s): Z99.2 - DEPENDENCE ON RENAL DIALYSIS (4) HTN (hypertension) Code(s): I10 - ESSENTIAL (PRIMARY) HYPERTENSION (5) SOB (shortness of breath) Code(s): R06.02 - SHORTNESS OF BREATH (6) Sepsis Code(s): A41.9 - SEPSIS, UNSPECIFIED ORGANISM Qualifiers: Sepsis type: sepsis due to unspecified organism Qualified Code(s): A41.9 - Sepsis, unspecified organism (7) Type 2 diabetes mellitus with foot ulcer Code(s): E11.621 - TYPE 2 DIABETES MELLITUS WITH FOOT ULCER; L97.509 - NON- PRESSURE CHRONIC ULCER OTH PRT UNSP FOOT W UNSP SEVERITY (8) Elevated troponin I measurement Code(s): R74.8 - ABNORMAL LEVELS OF OTHER SERUM ENZYMES (9) Weakness Assessment/Plan: CT head: no acute pathology. Neurology w/u in progress: right femoral mononeuropathy; diabetic peripheral neuropathy. Code(s): R53.1 - WEAKNESS (10) [place] cardiac risk >20% in next 10 years Assessment/Plan: Hx coronary PCI ?2015; on ASA and clopidogrel. Pt had stress MIBI 12/26: no ischemia. Now with elevated TNI, atypical chest pain. Plan for further evaluation of coronary arteries when stable (CVA presently being ruled out; AF with periods of RVR). Code(s): Z91.89 - [facility] PERSONAL RISK FACTORS, NOT ELSEWHERE CLASSIFIED (11) Systolic CHF Assessment/Plan: 12/2019 ECHO: mildly reduced LVEF (40-45%). (12/26 gated studies on stress MIBI: 33% LVEF). Start lisinopril. On beta blockers (changed to carvedilol). On diltiazem, but plan to taper off (reduced LVEF) once beta ema dose is optimized, and if HR allows. F/u BUN/Cr, electrolytes, daily weight, Is and Os. Code(s): I50.20 - UNSPECIFIED SYSTOLIC (CONGESTIVE) HEART FAILURE (12) Chest wall pain Assessment/Plan: Pt for surgery tomorrow for I&D of abscess. Restart IV heparin, warfarin PO as soon as hemostasis is achieved post-surgery. Code(s): R07.89 - OTHER CHEST PAIN (13) Thoracic ascending aortic aneurysm Assessment/Plan: 3.9 cm; f/u q 3-6 months. F/u with vascular surgeon. On carvedilol (HR control of AF; decrease shear stress). Code(s): I71.2 - THORACIC AORTIC ANEURYSM, WITHOUT RUPTURE
[2019-12-16 11:22] LABS: BASO % 0.8 % (0-2.0); EOS % 4.7 % (0-4.5); HEMATOCRIT 36.5 % (35.4-49); HEMOGLOBIN 12.2 GM/dL (11.7-16.9); LYMPH % 12.1 % (8-40); MCH 29.3 pg (25.7-33.7); MCHC 33.3 g/dl (32.0-35.9); MEAN CELL VOLUME 87.8 fl (80-96); MEAN PLT VOLUME 9.2 fl (7.5-11.1); MONO % 8.9 % (3.8-10.2); NEUT % 73.5 % (42.8-82.8); PLATELET COUNT 215 K/MM3 (134-434); RBC 4.15 M/mm3 (4.00-5.60); RDW 16.3 % (11.9-15.9); WHITE BLOOD COUNT 7.5 K/mm3 (4.0-10.0)
[2019-12-16 11:35] LABS: INR 1.73 (0.83-1.09); PROTHROMBIN TIME (PATIENT) 20.5 SEC (9.7-13.0)
[2019-12-16 11:37] LABS: ACTIVATED PTT 37.3 SECONDS (25.2-36.5)
[2019-12-16 12:00] LABS: ALBUMIN 1.9 g/dl (3.4-5.0); BILIRUBIN,TOTAL 2.8 mg/dL (0.2-1); BLOOD UREA NITROGEN 36.9 mg/dL (7-18); CALCIUM 8.2 mg/dL (8.5-10.1); CREATININE 6.6 mg/dL (0.55-1.3); POTASSIUM 4.9 mmol/L (3.5-5.1); TOT PROT 6.2 g/dl (6.4-8.2)
--- NOTE | 2019-12-16 12:38 | PN ---
Progress Note, Physician - Current Medication List Current Medications: Active Medications Acetaminophen (Tylenol -) 650 mg PO Q6H PRN PRN Reason: FEVER Last Admin: 12/15/19 17:32 Dose: 650 mg Atorvastatin Calcium (Lipitor -) 40 mg PO HS [facility] Last Admin: 12/15/19 22:08 Dose: 40 mg Carvedilol (Coreg -) 25 mg PO BID [facility] Last Admin: 12/16/19 10:14 Dose: 25 mg Cinacalcet (Sensipar -) 60 mg PO DAILY [facility] Last Admin: 12/16/19 10:10 Dose: 60 mg Clopidogrel Bisulfate (Plavix -) 75 mg PO DAILY [facility] Last Admin: 12/13/19 12:58 Dose: 75 mg Diltiazem HCl (Cardizem -) 60 mg PO Q6HPO [facility] Last Admin: 12/16/19 12:22 Dose: 60 mg Nafcillin Sodium 2 gm/ (Dextrose) 100 mls @ 100 mls/hr IVPB Q4H-IV [facility]; Protocol Last Admin: 12/16/19 10:04 Dose: 100 mls/hr Sodium Chloride (Normal Saline -) 250 mls @ 3,000 mls/hr IV PRN PRN PRN Reason: Hypotension during Dialysis Stop: 12/15/19 14:27 Piperacillin Sod/Tazobactam (Sod 2.25 gm/ Dextrose) 50 mls @ 100 mls/hr IVPB Q8H-IV [facility]; Protocol Last Admin: 12/16/19 10:05 Dose: 100 mls/hr Insulin Aspart (Novolog Vial Sliding Scale -) 1 vial SQ ACHS [facility]; Protocol Last Admin: 12/16/19 12:21 Dose: 2 units Morphine Sulfate (Morphine Sulfate) 2 mg IVPUSH Q6H PRN PRN Reason: PAIN LEVEL 6-10 Pantoprazole Sodium (Protonix -) 40 mg PO DAILY [facility] Last Admin: 12/16/19 10:09 Dose: 40 mg Sodium Zirconium Cyclosilicate (Lokelma) 5 gm PO DAILY@1400 [facility] Last Admin: 12/15/19 13:29 Dose: 5 gm - Objective Vital Signs: Vital Signs Temperature 97.8 F 12/16/19 10:00 Pulse Rate 110 H 12/16/19 10:00 Respiratory Rate 18 12/16/19 10:00 Blood Pressure 135/79 12/16/19 10:00 O2 Sat by Pulse Oximetry (%) 98 12/15/19 07:47 Labs: CBC, BMP 12/16/19 10:47 12/16/19 10:47 INR, PTT INR 1.73 (0.83-1.09) H 12/16/19 10:47
[2019-12-16] MEDS: SODIUM ZIRCONIUM CYCLOSILICATE (LOKELMA) 5 GM PACKET PO SCH (13:58)
[2019-12-16] MEDS: ACETAMINOPHEN 325 MG TABLET (FP) PO PRN (14:14)
--- NOTE | 2019-12-16 17:07 | PN ---
Progress Note (short form) - Note Progress Note: PULMONARY PATIENT SEEN AND EXAMINED FULL CONSULT TO FOLLOW Indu GASPAR MD
--- NOTE | 2019-12-16 17:56 | PN ---
Progress Note, Physician Chief Complaint: Abcess History of Present Illness: C/o chest wall pain, unchanged. - Current Medication List Current Medications: Active Medications Acetaminophen (Tylenol -) 650 mg PO Q6H PRN PRN Reason: FEVER Last Admin: 12/16/19 14:14 Dose: 650 mg Atorvastatin Calcium (Lipitor -) 40 mg PO HS [facility] Last Admin: 12/15/19 22:08 Dose: 40 mg Carvedilol (Coreg -) 25 mg PO BID [facility] Last Admin: 12/16/19 10:14 Dose: 25 mg Cinacalcet (Sensipar -) 60 mg PO DAILY [facility] Last Admin: 12/16/19 10:10 Dose: 60 mg Clopidogrel Bisulfate (Plavix -) 75 mg PO DAILY [facility] Last Admin: 12/13/19 12:58 Dose: 75 mg Diltiazem HCl (Cardizem -) 60 mg PO Q6HPO [facility] Last Admin: 12/16/19 12:22 Dose: 60 mg Nafcillin Sodium 2 gm/ (Dextrose) 100 mls @ 100 mls/hr IVPB Q4H-IV [facility]; Protocol Last Admin: 12/16/19 13:57 Dose: 100 mls/hr Sodium Chloride (Normal Saline -) 250 mls @ 3,000 mls/hr IV PRN PRN PRN Reason: Hypotension during Dialysis Stop: 12/15/19 14:27 Piperacillin Sod/Tazobactam (Sod 2.25 gm/ Dextrose) 50 mls @ 100 mls/hr IVPB Q8H-IV [facility]; Protocol Last Admin: 12/16/19 10:05 Dose: 100 mls/hr Insulin Aspart (Novolog Vial Sliding Scale -) 1 vial SQ ACHS [facility]; Protocol Last Admin: 12/16/19 12:21 Dose: 2 units Pantoprazole Sodium (Protonix -) 40 mg PO DAILY [facility] Last Admin: 12/16/19 10:09 Dose: 40 mg Sodium Zirconium Cyclosilicate (Lokelma) 5 gm PO DAILY@1400 [facility] Last Admin: 12/16/19 13:58 Dose: 5 gm - Objective Vital Signs: Vital Signs Temperature 97.7 F 12/16/19 14:00 Pulse Rate 113 H 12/16/19 14:00 Respiratory Rate 20 12/16/19 14:00 Blood Pressure 100/64 12/16/19 14:00 O2 Sat by Pulse Oximetry (%) 98 12/16/19 10:00 Constitutional: Yes: No Distress Eyes: Yes: Conjunctiva Clear Cardiovascular: Yes: Other (left chest wall tendderness) Respiratory: Yes: WNL Edema: No Labs: CBC, BMP 12/16/19 10:47 12/16/19 10:47 INR, PTT INR 1.73 (0.83-1.09) H 12/16/19 10:47 Assessment/Plan 64M, Jehovas witness, with ESRD on HD, HTN, IDDM, hx ESBL, hxosteomyelitis, PVD , on Plavix, Afib on warfarin, admitted with Afib with RVR. Found to have Staph aureaus bacteremia (now cleared with Abx) and an abscess in left anterior chest wall that needs I&D. Afebrie. Received Vit K 10 mg SQ last night to reverse warfarin in anticipation of surgery. INR 1.7 today. Planned for one more dose. Last Plavix on 12/13/19 (now held). Pt does not accept blood products. Repeat INR today in am If surgery is expected tomorrow, recommend desmopressin 20 mcg for plt dysfunction on plavix
[2019-12-16] MEDS ORDERED: SODIUM ZIRCONIUM CYCLOSILICATE (LOKELMA) 5 GM PACKET PO ONE (18:21)
--- NOTE | 2019-12-16 18:21 | PN ---
Progress Note, Physician History of Present Illness: Pt seen and examined at bedside. He denies shortness of breath. - Current Medication List Current Medications: Active Medications Acetaminophen (Tylenol -) 650 mg PO Q6H PRN PRN Reason: FEVER Last Admin: 12/16/19 14:14 Dose: 650 mg Atorvastatin Calcium (Lipitor -) 40 mg PO HS [facility] Last Admin: 12/15/19 22:08 Dose: 40 mg Carvedilol (Coreg -) 25 mg PO BID MARK Last Admin: 12/16/19 10:14 Dose: 25 mg Cinacalcet (Sensipar -) 60 mg PO DAILY MARK Last Admin: 12/16/19 10:10 Dose: 60 mg Clopidogrel Bisulfate (Plavix -) 75 mg PO DAILY [facility] Last Admin: 12/13/19 12:58 Dose: 75 mg Diltiazem HCl (Cardizem -) 60 mg PO Q6HPO MARK Last Admin: 12/16/19 12:22 Dose: 60 mg Nafcillin Sodium 2 gm/ (Dextrose) 100 mls @ 100 mls/hr IVPB Q4H-IV MARK; Protocol Last Admin: 12/16/19 13:57 Dose: 100 mls/hr Sodium Chloride (Normal Saline -) 250 mls @ 3,000 mls/hr IV PRN PRN PRN Reason: Hypotension during Dialysis Stop: 12/15/19 14:27 Piperacillin Sod/Tazobactam (Sod 2.25 gm/ Dextrose) 50 mls @ 100 mls/hr IVPB Q8H-IV MARK; Protocol Last Admin: 12/16/19 10:05 Dose: 100 mls/hr Insulin Aspart (Novolog Vial Sliding Scale -) 1 vial SQ ACHS MARK; Protocol Last Admin: 12/16/19 12:21 Dose: 2 units Pantoprazole Sodium (Protonix -) 40 mg PO DAILY [facility] Last Admin: 12/16/19 10:09 Dose: 40 mg Sodium Zirconium Cyclosilicate (Lokelma) 5 gm PO DAILY@1400 MARK Last Admin: 12/16/19 13:58 Dose: 5 gm - Objective Vital Signs: Vital Signs Temperature 97.7 F 12/16/19 14:00 Pulse Rate 113 H 12/16/19 14:00 Respiratory Rate 20 12/16/19 14:00 Blood Pressure 100/64 12/16/19 14:00 O2 Sat by Pulse Oximetry (%) 98 12/16/19 10:00 Constitutional: Yes: Calm Eyes: Yes: Conjunctiva Clear HENT: Yes: Atraumatic Cardiovascular: Yes: S1, S2 Respiratory: Yes: CTA Bilaterally Gastrointestinal: Yes: Soft, Abdomen, Obese Genitourinary: Yes: WNL Edema: Yes Edema: LLE: Trace, RLE: Trace Neurological: Yes: Oriented Psychiatric: Yes: Oriented Labs: CBC, BMP 12/16/19 10:47 12/16/19 10:47 INR, PTT INR 1.73 (0.83-1.09) H 12/16/19 10:47 Problem List - Problems (1) ESRD (end stage renal disease) Code(s): N18.6 - END STAGE RENAL DISEASE Assessment/Plan Current Medications Generic Name Dose Route Start Last Admin Trade Name Freq PRN Reason Stop Dose Admin Acetaminophen 650 mg 12/09/19 10:59 12/16/19 14:14 Tylenol - PO 650 mg Q6H PRN Administration FEVER Atorvastatin Calcium 40 mg 12/08/19 22:00 12/15/19 22:08 Lipitor - PO 40 mg HS MARK Administration Carvedilol 25 mg 12/16/19 10:00 12/16/19 10:14 Coreg - PO 25 mg BID MARK Administration Cinacalcet 60 mg 12/09/19 10:00 12/16/19 10:10 Sensipar - PO 60 mg DAILY MARK Administration Clopidogrel Bisulfate 75 mg 12/09/19 10:00 12/13/19 12:58 Plavix - PO 75 mg DAILY MARK Administration Diltiazem HCl 60 mg 12/09/19 12:00 12/16/19 12:22 Cardizem - PO 60 mg Q6HPO MARK Administration Nafcillin Sodium 2 gm/ 100 mls @ 100 mls/hr 12/11/19 18:00 12/16/19 13:57 Dextrose IVPB 100 mls/hr Q4H-IV MARK Administration Protocol Sodium Chloride 250 mls @ 3,000 mls/hr 12/14/19 14:27 Normal Saline - IV 12/15/19 14:27 PRN PRN Hypotension during Dialysis Piperacillin Sod/Tazobactam 50 mls @ 100 mls/hr 12/15/19 19:45 12/16/19 10:05 Sod 2.25 gm/ Dextrose IVPB 100 mls/hr Q8H-IV MARK Administration Protocol Insulin Aspart 1 vial 12/09/19 07:00 12/16/19 12:21 Novolog Vial Sliding Scale - SQ 2 units ACHS MARK Administration Protocol Pantoprazole Sodium 40 mg 12/09/19 10:00 12/16/19 10:09 Protonix - PO 40 mg DAILY MARK Administration Sodium Zirconium Cyclosilicate 5 gm 12/09/19 14:00 12/16/19 13:58 Lokelma PO 5 gm DAILY@1400 MARK Administration 1. Fever (Influenza negative, CXR w/o infiltrates) 2. Hyperkalemia 3. Tachycardia/Afib with RVR 4. ESRD on HD 5. DM 6. Hypertension 7. bacteremia 8. left chest wall mass/lesion Plan - pt had HD yesterday - cont lokelma - renal diet - next HD scheduled for Wednesday - surgery follow up
[2019-12-16] MEDS ORDERED: PHYTONADIONE 10 MG/1 ML AMP SQ ONE (19:00)
[2019-12-16] MEDS: ATORVASTATIN CA 40 MG TABLET (FP) PO SCH (21:37)
--- NOTE | 2019-12-16 22:17 | PN ---
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 - Current Medication List Current Medications: Active Medications Acetaminophen (Tylenol -) 650 mg PO Q6H PRN PRN Reason: FEVER Last Admin: 12/16/19 14:14 Dose: 650 mg Atorvastatin Calcium (Lipitor -) 40 mg PO HS [facility] Last Admin: 12/16/19 21:37 Dose: 40 mg Carvedilol (Coreg -) 25 mg PO BID MARK Last Admin: 12/16/19 21:37 Dose: 25 mg Cinacalcet (Sensipar -) 60 mg PO DAILY MARK Last Admin: 12/16/19 10:10 Dose: 60 mg Clopidogrel Bisulfate (Plavix -) 75 mg PO DAILY [facility] Last Admin: 12/13/19 12:58 Dose: 75 mg Diltiazem HCl (Cardizem -) 60 mg PO Q6HPO MARK Last Admin: 12/16/19 18:21 Dose: 60 mg Nafcillin Sodium 2 gm/ (Dextrose) 100 mls @ 100 mls/hr IVPB Q4H-IV MARK; Protocol Last Admin: 12/16/19 18:21 Dose: 100 mls/hr Sodium Chloride (Normal Saline -) 250 mls @ 3,000 mls/hr IV PRN PRN PRN Reason: Hypotension during Dialysis Stop: 12/15/19 14:27 Piperacillin Sod/Tazobactam (Sod 2.25 gm/ Dextrose) 50 mls @ 100 mls/hr IVPB Q8H-IV MARK; Protocol Last Admin: 12/16/19 18:20 Dose: 100 mls/hr Insulin Aspart (Novolog Vial Sliding Scale -) 1 vial SQ ACHS MARK; Protocol Last Admin: 12/16/19 18:24 Dose: Not Given Pantoprazole Sodium (Protonix -) 40 mg PO DAILY [facility] Last Admin: 12/16/19 10:09 Dose: 40 mg Sodium Zirconium Cyclosilicate (Lokelma) 5 gm PO DAILY@1400 [facility] Last Admin: 12/16/19 13:58 Dose: 5 gm - Objective Vital Signs: Vital Signs Temperature 97.7 F 12/16/19 14:00 Pulse Rate 100 H 12/16/19 18:00 Respiratory Rate 20 12/16/19 18:00 Blood Pressure 110/54 L 12/16/19 18:00 O2 Sat by Pulse Oximetry (%) 98 12/16/19 10:00 Cardiovascular: Yes: Pulse Irregular Respiratory: Yes: WNL, Regular, CTA Bilaterally Gastrointestinal: Yes: WNL, Normal Bowel Sounds, Soft, Abdomen, Obese Musculoskeletal: Yes: Other ((+) soft mass lt ant chest wall tender to palpation ) Labs: CBC, BMP 12/16/19 10:47 12/16/19 10:47 INR, PTT INR 1.73 (0.83-1.09) H 12/16/19 10:47 Problem List - Problems (1) Abscess Assessment/Plan: CT scan chest showed Lt upper 1/3 pectoralis muscle swelling w/ foci air/gas and ?pulmonary wedge shaped ? infarct Pt possible scheduled for OR in am for I&D if coags are normal Vitamin K given again tonight Check labs in am Desmopressin 20mcg prior to surgery as per heme DC coumadin Plavix on hold NPO after midnight Code(s): L02.91 - CUTANEOUS ABSCESS, UNSPECIFIED (2) Weakness Assessment/Plan: Ct scan head was unremarkable Neuro consult noted ?femoral neuropathy Code(s): R53.1 - WEAKNESS (3) Sepsis Assessment/Plan: Due to staph aureus bacteremia Repeat BC remain negative Cont IV naficillin w/ dialysis Code(s): A41.9 - SEPSIS, UNSPECIFIED ORGANISM Qualifiers: Sepsis type: sepsis due to unspecified organism Qualified Code(s): A41.9 - Sepsis, unspecified organism (4) ESRD (end stage renal disease) Code(s): N18.6 - END STAGE RENAL DISEASE (5) New onset atrial fibrillation Code(s): I48.91 - UNSPECIFIED ATRIAL FIBRILLATION (6) HTN (hypertension) Code(s): I10 - ESSENTIAL (PRIMARY) HYPERTENSION (7) Diabetes Code(s): E11.9 - TYPE 2 DIABETES MELLITUS WITHOUT COMPLICATIONS Qualifiers: Diabetes mellitus custodial insulin use: unspecified custodial insulin use status Diabetes mellitus complication status: with circulatory complication (8) Obesity Code(s): E66.9 - OBESITY, UNSPECIFIED
[2019-12-17] MEDS ORDERED: PIPERACILLIN/TAZOBACTAM 2.25 GM VIAL IVPB ONE ×4 (01:27→17:49)
[2019-12-17] MEDS ORDERED: PT OWN MED DRAWER 7, Y5N ONE ×3 (01:27→21:11)
[2019-12-17] MEDS ORDERED: DEXTROSE 5%-WATER - 50 ML IVPB ONE ×4 (01:27→17:49)
[2019-12-17] MEDS: PIPERACILLIN/TAZOB 2.25 GM 2.25 GM in DEXTROSE 5%-WATER - 50 ML IVPB SCH ×3 (01:47→18:25)
[2019-12-17] MEDS: NAFCILLIN - 2 GM in DEXTROSE 5%-WATER - 100 ML IVPB SCH ×6 (01:48→21:30)
[2019-12-17] MEDS: dilTIAZem HCL 60 MG TABLET (FP) PO SCH ×5 (01:50→23:16)
[2019-12-17] MEDS: INSULIN SLIDING SCALE (NOVOLOG) 1 VIAL SQ SCH ×3 (06:29→21:50)
[2019-12-17 07:39] LABS: INR 1.39 (0.83-1.09); PROTHROMBIN TIME (PATIENT) 16.4 SEC (9.7-13.0)
[2019-12-17] MEDS: CARVEDILOL 25 MG TABLET (FP) PO SCH ×2 (09:28→21:29)
[2019-12-17] MEDS: PANTOPRAZOLE 40 MG TABLET PO SCH (09:28)
[2019-12-17] MEDS: CINACALCET HCL 30 MG TAB (FP) PO SCH (09:35)
--- NOTE | 2019-12-17 11:48 | CON.PULM ---
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 Many years of numbnes and tingling in the feet. Was in [facility] prior to admission when he walked his grandson to school and then drove to Dialysis. In Dialysis devoloped pain around the right shoulder was sent to the ER for evaluation. WBC was > 10 and antibiotics were started.On day 2 he noted weakness and almost collapsed being assisted to the bathroom. I have been asked to eval ct chest due to an abnormality. 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 No: Asthma, COPD, O2 Dependent, Pneumonia, Previously Intubated Renal/: Yes: Renal Failure Infectious Disease: Yes: Other (osteomyelitis) Endocrine: Yes: Diabetes Mellitus - Past Surgical History Past Surgical History: Yes: Amputation (right 5th toe), AV Fistula/Graft - Alcohol/Substance Use Hx Alcohol Use: No - Smoking History Smoking history: Never smoked Have you smoked in the past 12 months: No Aproximately how many cigarettes per day: 0 - Social History Usual Living Arrangement: With Spouse ADL: Family Assistance Place of : Other History of Recent Travel: No Home Medications - Allergies Allergies/Adverse Reactions: Allergies Allergy/AdvReac Type Severity Reaction Status Date / Time Pork/Porcine Containing Allergy Verified 12/08/19 10:51 Products - Home Medications Home Medications: Ambulatory Orders Cinacalcet HCl [Sensipar] 60 mg PO DAILY 09/28/14 Hum Insulin NPH/Reg Insulin Hm [Novolin 70-30 U100 Cartridge] 40 unit SQ BID Atorvastatin Ca [Lipitor] 40 mg PO HS #30 tablet 10/03/14 cloNIDine HCL [Catapres -] 0.1 mg PO BID #60 tablet 10/03/14 Metoclopramide HCl [Reglan] 5 mg PO TID #0 tablet 04/28/16 Pantoprazole Sodium [Protonix] 40 mg PO DAILY #0 tablet. 04/28/16 Sevelamer Carbonate [Renvela -] 2,400 mg PO TID 04/28/16 Ammonium Lactate Lotion [Lac-Hydrin 12] 1 applic TP BID PRN bottle 02/08/18 Metoprolol Tartrate [Lopressor -] 25 mg PO BID tablet 02/28/18 Clopidogrel Bisulfate [Plavix] 75 mg PO DAILY #30 tablet 08/19/18 Family Medical History Family History: Unremarkable Review of Systems - Review of Systems Respiratory: denies: Cough, Exercise Intolerance, Hemoptysis, Orthopnea, SOB, SOB on Exertion, Wheezing Physical Exam Vital Sings: Vital Signs Temperature 97.8 F 12/17/19 08:26 Pulse Rate 85 12/17/19 08:26 Respiratory Rate 20 12/17/19 08:26 Blood Pressure 110/75 12/17/19 08:26 O2 Sat by Pulse Oximetry (%) 94 L 12/17/19 08:26 Constitutional: Yes: Calm Eyes: Yes: EOM Intact HENT: Yes: Normocephalic Neck: Yes: Trachea Midline Cardiovascular: Yes: Pulse Irregular, S1, S2 Respiratory: Yes: CTA Bilaterally ...Inspection: Yes: Other (chest wall abscess for debridement) Gastrointestinal: Yes: Normal Bowel Sounds, Soft Extremities: Yes: Amputation (right 5th toe) Integumentary: Yes: WNL Neurological: Yes: Alert Psychiatric: Yes: Alert Labs: CBC, BMP 12/16/19 10:47 12/16/19 10:47 rest reviewed Imaging - Results Chest X-ray: Report Reviewed, Image Reviewed Cat Scan: Report Reviewed, Image Reviewed EKG: Report Reviewed, Image Reviewed Problem List - Problems (1) Abnormal CT of the chest Code(s): R93.89 - ABNORMAL FINDINGS ON DX IMAGING OF OTH BODY STRUCTURES (2) Abscess Code(s): L02.91 - CUTANEOUS ABSCESS, UNSPECIFIED (3) Chest wall pain Code(s): R07.89 - OTHER CHEST PAIN (4) ESRD (end stage renal disease) Code(s): N18.6 - END STAGE RENAL DISEASE (5) New onset atrial fibrillation Code(s): I48.91 - UNSPECIFIED ATRIAL FIBRILLATION (6) Obesity Code(s): E66.9 - OBESITY, UNSPECIFIED (7) Weakness Code(s): R53.1 - WEAKNESS (8) Diabetes Code(s): E11.9 - TYPE 2 DIABETES MELLITUS WITHOUT COMPLICATIONS Qualifiers: 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: unspecified chcf insulin use status Diabetes mellitus complication status: with circulatory complication (9) Dialysis patient Code(s): Z99.2 - DEPENDENCE ON RENAL DIALYSIS (10) HLD (hyperlipidemia) Code(s): E78.5 - HYPERLIPIDEMIA, UNSPECIFIED (11) HTN (hypertension) Code(s): I10 - ESSENTIAL (PRIMARY) HYPERTENSION (12) Abscess of chest wall Code(s): L02.213 - CUTANEOUS ABSCESS OF CHEST WALL Assessment/Plan LEFT CHEST WALL ABSCESS NEEDS DEBRIDEMENT WHEN COAGS ARE IN RANGE ABNORMALITIES ON LUNG CT APPEAR CHRONIC AND SUBPLEURAL WOULD REPEAT CT CHEST AN OUTPATIENT IN 2-3 MONTHS IF INCREASE IN SIZE WOULD REQUEST PET SCAN WILL FOLLOW Indu GASPAR MD
[2019-12-17] MEDS: SODIUM ZIRCONIUM CYCLOSILICATE (LOKELMA) 5 GM PACKET PO SCH (13:47)
--- NOTE | 2019-12-17 14:16 | EKG ---
Test Reason : Blood Pressure : / mmHG Vent. Rate : 096 BPM Atrial Rate : 300 BPM P-R Int : 000 ms QRS Dur : 088 ms QT Int : 404 ms P-R-T Axes : 000 -29 006 degrees QTc Int : 510 ms ATRIAL FIBRILLATION PROLONGED QT ABNORMAL ECG Confirmed by MD AUSTIN, OMER ([id number]) on 12/17/2019 2:15:57 PM Referred By: Esmer BRASWELL Confirmed By:OMER AVILA MD
[2019-12-17] MEDS ORDERED: SODIUM CHLORIDE 1,000 ML IV SCH ×2 (15:15→17:28)
[2019-12-17] MEDS ORDERED: PROPOFOL 20 ML ONE ×3 (15:33)
[2019-12-17] MEDS ORDERED: LIDOCAINE HCL/PF 2% SDV 5ML VIAL ONE (15:34)
[2019-12-17] MEDS ORDERED: ETOMIDATE 20 MG/10 ML AMPUL IVPUSH ONE (15:34)
[2019-12-17] MEDS ORDERED: SUCCINYLCHOLINE CHLORIDE 200 MG/10 ML SYRINGE ONE (15:34)
[2019-12-17] MEDS ORDERED: PHENYLEPHRINE HCL 10 MG/1 ML SINGLE DOSE VIAL ONE (15:37)
[2019-12-17] MEDS ORDERED: EPHEDRINE SULFATE/0.9% NACL/PF 50 MG/10 ML SYRINGE NR ONE (15:38)
[2019-12-17] MEDS ORDERED: DESFLURANE GAS 240 ML BOTTLE IH ONE (15:41)
--- NOTE | 2019-12-17 16:02 | PN ---
Progress Note, Physician Chief Complaint: Pt A&Ox3; chest discomfort if present, but mild; exacerbated by moving left shoulder. History of Present Illness: 64yM w PMHx ESRD on Hd (MWF), obesity, nonsustained/paroxysmal SVT, HTN, diastolic CHF, IDDM, ESBL osteomyelitis/s/p right 5th toe amputation, PVD, obesity (once weighed 400 lbs; with attention to food and "trying hard to exercise"; he has reduced to 280 lbs over the past few years), ?sleep apnea, presenting w fever, tachycardia, body aches starting yesterday. Been having 3-5 episodes of diarrhea ongoing for past month. Had paroxysmal SVT in past in setting of infection; denies having AF. Does not make urine. Denies cough, nasal congestion, chest pain, SOB, AB pain. PMD: Dr. Jameel Jauregui Cardiologsit: Dr. Jayne Odom - Current Medication List Current Medications: Active Medications Acetaminophen (Tylenol -) 650 mg PO Q6H PRN PRN Reason: FEVER Last Admin: 12/16/19 14:14 Dose: 650 mg Atorvastatin Calcium (Lipitor -) 40 mg PO HS [facility] Last Admin: 12/16/19 21:37 Dose: 40 mg Carvedilol (Coreg -) 25 mg PO BID [facility] Last Admin: 12/17/19 09:28 Dose: 25 mg Cinacalcet (Sensipar -) 60 mg PO DAILY [facility] Last Admin: 12/17/19 09:35 Dose: 60 mg Clopidogrel Bisulfate (Plavix -) 75 mg PO DAILY [facility] Last Admin: 12/13/19 12:58 Dose: 75 mg Diltiazem HCl (Cardizem -) 60 mg PO Q6HPO [facility] Last Admin: 12/17/19 11:59 Dose: 60 mg Fentanyl (Sublimaze Injection -) 25 mcg IVPUSH [id number] PRN PRN Reason: PAIN-PACU ORDER X 4 DOSES ONLY Nafcillin Sodium 2 gm/ (Dextrose) 100 mls @ 100 mls/hr IVPB Q4H-IV MARK; Protocol Last Admin: 12/17/19 13:47 Dose: 100 mls/hr Sodium Chloride (Normal Saline -) 250 mls @ 3,000 mls/hr IV PRN PRN PRN Reason: Hypotension during Dialysis Stop: 12/15/19 14:27 Piperacillin Sod/Tazobactam (Sod 2.25 gm/ Dextrose) 50 mls @ 100 mls/hr IVPB Q8H-IV MARK; Protocol Last Admin: 12/17/19 09:33 Dose: 100 mls/hr Sodium Chloride (Normal Saline -) 1,000 mls @ 42 mls/hr IV ASDIR MARK Insulin Aspart (Novolog Vial Sliding Scale -) 1 vial SQ ACHS [facility]; Protocol Last Admin: 12/17/19 11:08 Dose: 2 units Pantoprazole Sodium (Protonix -) 40 mg PO DAILY [facility] Last Admin: 12/17/19 09:28 Dose: 40 mg Sodium Zirconium Cyclosilicate (Lokelma) 5 gm PO DAILY@1400 [facility] Last Admin: 12/17/19 13:47 Dose: 5 gm - Objective Vital Signs: Vital Signs Temperature 98.9 F 12/17/19 14:00 Pulse Rate 97 H 12/17/19 14:00 Respiratory Rate 20 12/17/19 14:00 Blood Pressure 128/81 12/17/19 14:00 O2 Sat by Pulse Oximetry (%) 94 L 12/17/19 08:26 Constitutional: Yes: Anxious Eyes: Yes: WNL HENT: Yes: WNL Neck: Yes: WNL Cardiovascular: Yes: Pulse Irregular Labs: CBC, BMP 12/16/19 10:47 12/16/19 10:47 INR, PTT INR 1.39 (0.83-1.09) H 12/17/19 05:12 Problem List - Problems (1) New onset atrial fibrillation Assessment/Plan: Telemetry: AF; controlled VR. Plan: On carvedilol 25 mg bid. On diltiazem 60 mg q6h; plan to taper off if HR and rhythm stabilize. Plan to add lisinopril if BP allows (for systolic CHF). Maintain electrolytes WNL. Code(s): I48.91 - UNSPECIFIED ATRIAL FIBRILLATION (2) Amputated toe of right foot Assessment/Plan: PAD. Will need vascular workup, which may be done as outpatient. Code(s): S98.131A - COMPLETE TRAUMATIC AMPUTATION OF ONE RIGHT LESSER TOE, INIT (3) Dialysis patient Assessment/Plan: hemodialysis 3x/wk per chief privacy officer. Code(s): Z99.2 - DEPENDENCE ON RENAL DIALYSIS (4) HTN (hypertension) Code(s): I10 - ESSENTIAL (PRIMARY) HYPERTENSION (5) SOB (shortness of breath) Code(s): R06.02 - SHORTNESS OF BREATH (6) Sepsis Code(s): A41.9 - SEPSIS, UNSPECIFIED ORGANISM Qualifiers: Sepsis type: sepsis due to unspecified organism Qualified Code(s): A41.9 - Sepsis, unspecified organism (7) Type 2 diabetes mellitus with foot ulcer Code(s): E11.621 - TYPE 2 DIABETES MELLITUS WITH FOOT ULCER; L97.509 - NON- PRESSURE CHRONIC ULCER OTH PRT UNSP FOOT W UNSP SEVERITY (8) Elevated troponin I measurement Assessment/Plan: TNI 0.02-->0.37-->0.32; CK became elevated, but low CKMB relative index. EKG: AF; no significant STT abnormalities. ECHO: mildly decreased LVEF. Demand ischemia from multiple contributors, including AF with RVR, Systolic CHF , pain.fever. Communication with pt's rope cleaner: Hx coronary artery stent: ?2016; on ASA and clopidogrel. Stress MIBI 12/2017: no ischemia; possible inferior wall infarct; reduced LVEF. Code(s): R74.8 - ABNORMAL LEVELS OF OTHER SERUM ENZYMES (9) Weakness Assessment/Plan: CT head: no acute pathology. Neurology w/u in progress: right femoral mononeuropathy; diabetic peripheral neuropathy. Code(s): R53.1 - WEAKNESS (10) [place] cardiac risk >20% in next 10 years Assessment/Plan: Hx coronary PCI ?2016; on ASA and clopidogrel. Pt had stress MIBI 12/26: no ischemia. Now with elevated TNI, atypical chest pain. Plan for further evaluation of coronary arteries when stable (CVA presently being ruled out; AF with periods of RVR). Code(s): Z91.89 - OT PERSONAL RISK FACTORS, NOT ELSEWHERE CLASSIFIED (11) Systolic CHF Assessment/Plan: 12/2019 ECHO: mildly reduced LVEF (40-45%). (12/26 gated studies on stress MIBI: 33% LVEF). Start lisinopril. On beta blockers (changed to carvedilol). On diltiazem, but plan to taper off (reduced LVEF) once beta ema dose is optimized, and if HR allows. F/u BUN/Cr, electrolytes, daily weight, Is and Os. Code(s): I50.20 - UNSPECIFIED SYSTOLIC (CONGESTIVE) HEART FAILURE (12) Chest wall pain Assessment/Plan: Pt for surgery today for I&D of left anterior axillary abscess. Restart IV heparin, warfarin PO as soon as hemostasis is achieved post-surgery. Code(s): R07.89 - OTHER CHEST PAIN (13) Thoracic ascending aortic aneurysm Assessment/Plan: 3.9 cm; f/u q 3-6 months. F/u with vascular surgeon. On carvedilol (HR control of AF; decrease shear stress). Problems reviewed: Yes Code(s): I71.2 - THORACIC AORTIC ANEURYSM, WITHOUT RUPTURE
[2019-12-17] MEDS ORDERED: ROCURONIUM BROMIDE 50 MG/5 ML SYRINGE ONE (16:21)
[2019-12-17] MEDS ORDERED: SODIUM CHLORIDE 250 ML IV PRN ×2 (17:28→17:54)
--- NOTE | 2019-12-17 17:28 | OP ---
Operative Note - Note: Operative Date: 12/17/19 Pre-Operative Diagnosis: chest wall abcess Operation: I&D of Abcess Findings: soft tissue infection Post-Operative Diagnosis: Same as Pre-op Surgeon: Amado Mccray Anesthesia: General Specimens Removed: cultures Estimated Blood Loss (mls): 5 Operative Report Dictated: Yes
--- NOTE | 2019-12-17 17:53 | PN ---
Progress Note, Physician History of Present Illness: Pt seen and examined at bedside. He is awake and alert. He denies shortness of breath. - Current Medication List Current Medications: Active Medications Acetaminophen (Tylenol -) 650 mg PO Q6H PRN PRN Reason: FEVER Atorvastatin Calcium (Lipitor -) 40 mg PO HS MARK Carvedilol (Coreg -) 25 mg PO BID MARK Cinacalcet (Sensipar -) 60 mg PO DAILY [facility] Clopidogrel Bisulfate (Plavix -) 75 mg PO DAILY [facility] Diltiazem HCl (Cardizem -) 60 mg PO Q6HPO MARK Fentanyl (Sublimaze Injection -) 25 mcg IVPUSH [id number] PRN PRN Reason: PAIN-PACU ORDER X 4 DOSES ONLY Sodium Chloride (Normal Saline -) 250 mls @ 3,000 mls/hr IV PRN PRN PRN Reason: Hypotension during Dialysis Nafcillin Sodium 2 gm/ (Dextrose) 100 mls @ 100 mls/hr IVPB Q4H-IV MARK; Protocol Sodium Chloride (Normal Saline -) 1,000 mls @ 42 mls/hr IV ASDIR MARK Piperacillin Sod/Tazobactam (Sod 2.25 gm/ Dextrose) 50 mls @ 100 mls/hr IVPB Q8H-IV MARK; Protocol Insulin Aspart (Novolog Vial Sliding Scale -) 1 vial SQ ACHS [facility]; Protocol Pantoprazole Sodium (Protonix -) 40 mg PO DAILY [facility] Sodium Zirconium Cyclosilicate (Lokelma) 5 gm PO DAILY@1400 MARK - Objective Vital Signs: Vital Signs Temperature 98.9 F 12/17/19 14:00 Pulse Rate 97 H 12/17/19 14:00 Respiratory Rate 20 12/17/19 14:00 Blood Pressure 128/81 12/17/19 14:00 O2 Sat by Pulse Oximetry (%) 94 L 12/17/19 08:26 Constitutional: Yes: Calm Eyes: Yes: Conjunctiva Clear HENT: Yes: Atraumatic Neck: Yes: Supple Cardiovascular: Yes: S1, S2 Respiratory: Yes: CTA Bilaterally Gastrointestinal: Yes: Soft, Abdomen, Obese Genitourinary: Yes: WNL Musculoskeletal: Yes: WNL Edema: LLE: Trace, RLE: Trace Neurological: Yes: Oriented Psychiatric: Yes: Oriented Labs: CBC, BMP 12/16/19 10:47 12/16/19 10:47 INR, PTT INR 1.39 (0.83-1.09) H 12/17/19 05:12 Problem List - Problems (1) ESRD (end stage renal disease) Code(s): N18.6 - END STAGE RENAL DISEASE Assessment/Plan Current Medications Generic Name Dose Route Start Last Admin Trade Name Freq PRN Reason Stop Dose Admin Acetaminophen 650 mg 12/17/19 17:28 Tylenol - PO Q6H PRN FEVER Atorvastatin Calcium 40 mg 12/17/19 22:00 Lipitor - PO HS MARK Carvedilol 25 mg 12/17/19 22:00 Coreg - PO BID MARK Cinacalcet 60 mg 12/18/19 10:00 Sensipar - PO DAILY MARK Clopidogrel Bisulfate 75 mg 12/18/19 10:00 Plavix - PO DAILY MARK Diltiazem HCl 60 mg 12/17/19 18:00 Cardizem - PO Q6HPO MARK Fentanyl 25 mcg 12/17/19 17:28 Sublimaze Injection - IVPUSH [id number] PRN PAIN-PACU ORDER X 4 DOSES ONLY Sodium Chloride 250 mls @ 3,000 mls/hr 12/17/19 17:28 Normal Saline - IV PRN PRN Hypotension during Dialysis Nafcillin Sodium 2 gm/ 100 mls @ 100 mls/hr 12/17/19 18:00 Dextrose IVPB Q4H-IV MARK Protocol Sodium Chloride 1,000 mls @ 42 mls/hr 12/17/19 17:28 Normal Saline - IV ASDIR MARK Piperacillin Sod/Tazobactam 50 mls @ 100 mls/hr 12/17/19 18:00 Sod 2.25 gm/ Dextrose IVPB Q8H-IV MARK Protocol Insulin Aspart 1 vial 12/17/19 22:00 Novolog Vial Sliding Scale - SQ ACHS [facility] Protocol Pantoprazole Sodium 40 mg 12/18/19 10:00 Protonix - PO DAILY MARK Sodium Zirconium Cyclosilicate 5 gm 12/18/19 14:00 Lokelma PO DAILY@1400 [facility] 1. Fever (Influenza negative, CXR w/o infiltrates) 2. Hyperkalemia 3. Tachycardia/Afib with RVR 4. ESRD on HD 5. DM 6. Hypertension 7. bacteremia 8. left chest wall mass/lesion Plan - HD tomorrow - orders written - cont abx - surgery follow up - renal diet
--- NOTE | 2019-12-17 18:18 | PN ---
Progress Note, Physician History of Present Illness: No changes .Still with chest wall pain - Current Medication List Current Medications: Active Medications Acetaminophen (Tylenol -) 650 mg PO Q6H PRN PRN Reason: FEVER Atorvastatin Calcium (Lipitor -) 40 mg PO HS [facility] Carvedilol (Coreg -) 25 mg PO BID [facility] Cinacalcet (Sensipar -) 60 mg PO DAILY [facility] Clopidogrel Bisulfate (Plavix -) 75 mg PO DAILY [facility] Diltiazem HCl (Cardizem -) 60 mg PO Q6HPO [facility] Fentanyl (Sublimaze Injection -) 25 mcg IVPUSH [id number] PRN PRN Reason: PAIN-PACU ORDER X 4 DOSES ONLY Sodium Chloride (Normal Saline -) 250 mls @ 3,000 mls/hr IV PRN PRN PRN Reason: Hypotension during Dialysis Nafcillin Sodium 2 gm/ (Dextrose) 100 mls @ 100 mls/hr IVPB Q4H-IV [facility]; Protocol Sodium Chloride (Normal Saline -) 1,000 mls @ 42 mls/hr IV ASDIR [facility] Piperacillin Sod/Tazobactam (Sod 2.25 gm/ Dextrose) 50 mls @ 100 mls/hr IVPB Q8H-IV [facility]; Protocol Sodium Chloride (Normal Saline -) 250 mls @ 3,000 mls/hr IV PRN PRN PRN Reason: Hypotension during Dialysis Stop: 12/18/19 17:54 Insulin Aspart (Novolog Vial Sliding Scale -) 1 vial SQ ACHS [facility]; Protocol Pantoprazole Sodium (Protonix -) 40 mg PO DAILY [facility] Sodium Zirconium Cyclosilicate (Lokelma) 5 gm PO DAILY@1400 [facility] - Objective Vital Signs: Vital Signs Temperature 98.4 F 12/17/19 18:14 Pulse Rate 84 12/17/19 18:14 Respiratory Rate 16 12/17/19 18:14 Blood Pressure 126/72 12/17/19 18:14 O2 Sat by Pulse Oximetry (%) 0 L 12/17/19 18:14 Constitutional: Yes: No Distress, Calm Eyes: Yes: Conjunctiva Clear Respiratory: Yes: WNL Edema: LLE: 1+, RLE: 1+ Labs: CBC, BMP 12/16/19 10:47 12/16/19 10:47 INR, PTT INR 1.39 (0.83-1.09) H 12/17/19 05:12 Assessment/Plan 64M, Jehovas witness, with ESRD on HD, HTN, IDDM, hx ESBL, hxosteomyelitis, PVD , on Plavix, Afib on warfarin, admitted with Afib with RVR. Found to have Staph aureaus bacteremia (now cleared with Abx) and an abscess in left anterior chest wall that needs I&D. Afebrie. Received Vit K. INR 1.4 today. Last Plavix on (now held). OR this afternoon for I&D Pt does not accept blood products. desmopressin 20 mcg for plt dysfunction on plavix pre-op
--- NOTE | 2019-12-17 19:37 | OP ---
DATE OF OPERATION: 12/17/2019 PREOPERATIVE DIAGNOSIS: Soft tissue infection in left anterior chest wall. POSTOPERATIVE DIAGNOSIS: Soft tissue infection in left anterior chest wall. PROCEDURE: Incision and drainage of anterior chest wall abscess. SURGEON: Amado Pantoja MD COMPLICATIONS: None. BLEEDING: Minimal. SPECIMEN: Cultures. TOLERANCE: Patient tolerated the procedure well. This is a 64-year-old male, admitted to the hospital with exacerbation of atrial fibrillation and during hospitalization he developed evidence of chest wall pain and temperature elevated, fever. Obtained a CAT scan of the chest, which showed evidence of a fluid collection with air suggestive of a soft tissue infection. Given his elevated PT, he was treated with vitamin K and the patient is a Jewish and refused blood transfusion, therefore, FFP was not given. Risks and benefits discussed with the patient regarding the delay in therapy and he agreed to proceed as planned. We waited about 48 hours until the PT was normalized. Patient, however, remained afebrile during this period with no changes in his hemodynamics and he is taken to the operating room at this point for incision and drainage of his abscess, given his normal coagulation studies at this point. In the OR, he was placed in supine position. After induction of general anesthesia, he was prepped and draped in the usual sterile fashion. A transverse incision was made with a scalpel over the anterior chest wall medial clavicle, dissection down through subcutaneous tissues until the pectoralis fascia was identified. was divided, the muscles were split in the middle until the collection was entered along the anterior chest wall. This was drained from approximately about 10 to 15 mL of pus and the area was irrigated and suction cultures were obtained and then the wound was packed with iodoform packing gauze and sterile dressings were applied and the patient was returned to the recovery room awake and alert, in stable condition, tolerated the procedure well. AMADO PANTOJA M.D. RADHA/[id number]
[2019-12-17] MEDS: ATORVASTATIN CA 40 MG TABLET (FP) PO SCH (21:29)
[2019-12-17] MEDS: ACETAMINOPHEN 325 MG TABLET (FP) PO PRN (21:30)
[2019-12-17] MEDS ORDERED: INSULIN (NOVOLOG) ASPART 100 UNITS/ML 10ML VIAL ONE (21:43)
--- NOTE | 2019-12-17 22:20 | PN ---
Progress Note, Physician History of Present Illness: Pt tolerated surgery - Current Medication List Current Medications: Active Medications Acetaminophen (Tylenol -) 650 mg PO Q6H PRN PRN Reason: FEVER Last Admin: 12/17/19 21:30 Dose: 650 mg Atorvastatin Calcium (Lipitor -) 40 mg PO HS [facility] Last Admin: 12/17/19 21:29 Dose: 40 mg Carvedilol (Coreg -) 25 mg PO BID [facility] Last Admin: 12/17/19 21:29 Dose: 25 mg Cinacalcet (Sensipar -) 60 mg PO DAILY [facility] Clopidogrel Bisulfate (Plavix -) 75 mg PO DAILY [facility] Diltiazem HCl (Cardizem -) 60 mg PO Q6HPO [facility] Last Admin: 12/17/19 18:25 Dose: 60 mg Fentanyl (Sublimaze Injection -) 25 mcg IVPUSH [id number] PRN PRN Reason: PAIN-PACU ORDER X 4 DOSES ONLY Nafcillin Sodium 2 gm/ (Dextrose) 100 mls @ 100 mls/hr IVPB Q4H-IV [facility]; Protocol Last Admin: 12/17/19 21:30 Dose: 100 mls/hr Sodium Chloride (Normal Saline -) 1,000 mls @ 42 mls/hr IV ASDIR [facility] Last Admin: 12/17/19 18:32 Dose: Not Given Piperacillin Sod/Tazobactam (Sod 2.25 gm/ Dextrose) 50 mls @ 100 mls/hr IVPB Q8H-IV [facility]; Protocol Last Admin: 12/17/19 18:25 Dose: 100 mls/hr Sodium Chloride (Normal Saline -) 250 mls @ 3,000 mls/hr IV PRN PRN PRN Reason: Hypotension during Dialysis Stop: 12/18/19 17:54 Insulin Aspart (Novolog Vial Sliding Scale -) 1 vial SQ ACHS [facility]; Protocol Last Admin: 12/17/19 21:50 Dose: 2 units Pantoprazole Sodium (Protonix -) 40 mg PO DAILY [facility] Sodium Zirconium Cyclosilicate (Lokelma) 5 gm PO DAILY@1400 [facility] - Objective Vital Signs: Vital Signs Temperature 98.4 F 12/17/19 18:14 Pulse Rate 84 12/17/19 18:14 Respiratory Rate 16 12/17/19 18:14 Blood Pressure 126/72 12/17/19 18:14 O2 Sat by Pulse Oximetry (%) 0 L 12/17/19 18:14 Neck: Yes: WNL, Supple Cardiovascular: Yes: WNL, Regular Rate and Rhythm Respiratory: Yes: WNL, Regular, CTA Bilaterally Gastrointestinal: Yes: WNL, Normal Bowel Sounds, Soft Labs: CBC, BMP 12/16/19 10:47 12/16/19 10:47 INR, PTT INR 1.39 (0.83-1.09) H 12/17/19 05:12 Problem List - Problems (1) Abscess Assessment/Plan: CT scan chest showed Lt upper 1/3 pectoralis muscle swelling w/ foci air/gas and ?pulmonary wedge shaped ? infarct S/P I&D of lt ant chest wall Follow cultures Cont IV antibxs Code(s): L02.91 - CUTANEOUS ABSCESS, UNSPECIFIED (2) Sepsis Assessment/Plan: Due to staph aureus bacteremia Repeat BC remain negative Cont IV naficillin w/ dialysis Code(s): A41.9 - SEPSIS, UNSPECIFIED ORGANISM Qualifiers: Sepsis type: sepsis due to unspecified organism Qualified Code(s): A41.9 - Sepsis, unspecified organism (3) Weakness Assessment/Plan: Ct scan head was unremarkable Neuro consult noted ?femoral neuropathy Code(s): R53.1 - WEAKNESS (4) ESRD (end stage renal disease) Assessment/Plan: Pt on dialysis As per renal Code(s): N18.6 - END STAGE RENAL DISEASE (5) New onset atrial fibrillation Assessment/Plan: ?Due to sepsis/fever/Pt is allergic to pork therefore cannot use heparin Also cannot use new AC's meds due to ESRD Hold coumadin and monitor pt/inr Cont metoprolol/cardizem Code(s): I48.91 - UNSPECIFIED ATRIAL FIBRILLATION (6) HTN (hypertension) Code(s): I10 - ESSENTIAL (PRIMARY) HYPERTENSION (7) Diabetes Assessment/Plan: Cont sliding scale w/ coverage Code(s): E11.9 - TYPE 2 DIABETES MELLITUS WITHOUT COMPLICATIONS Qualifiers: Diabetes mellitus intermediate insulin use: unspecified termite control representative insulin use status Diabetes mellitus complication status: with circulatory complication (8) Obesity Code(s): E66.9 - OBESITY, UNSPECIFIED
[2019-12-18] MEDS ORDERED: PIPERACILLIN/TAZOBACTAM 2.25 GM VIAL IVPB ONE ×3 (01:29→17:13)
[2019-12-18] MEDS ORDERED: DEXTROSE 5%-WATER - 50 ML IVPB ONE ×3 (01:29→17:13)
[2019-12-18] MEDS: PIPERACILLIN/TAZOB 2.25 GM 2.25 GM in DEXTROSE 5%-WATER - 50 ML IVPB SCH ×3 (02:00→17:19)
[2019-12-18] MEDS: NAFCILLIN - 2 GM in DEXTROSE 5%-WATER - 100 ML IVPB SCH ×6 (02:38→21:11)
[2019-12-18] MEDS: INSULIN SLIDING SCALE (NOVOLOG) 1 VIAL SQ SCH ×4 (06:35→21:23)
[2019-12-18] MEDS: dilTIAZem HCL 60 MG TABLET (FP) PO SCH ×4 (06:42→23:25)
[2019-12-18] MEDS: ACETAMINOPHEN 325 MG TABLET (FP) PO PRN ×3 (06:43→21:12)
[2019-12-18] MEDS ORDERED: PT OWN MED DRAWER 7, Y5N ONE ×5 (07:23→20:37)
[2019-12-18 07:57] LABS: BASO % 0.4 % (0-2.0); EOS % 3.5 % (0-4.5); HEMATOCRIT 32.8 % (35.4-49); HEMOGLOBIN 10.9 GM/dL (11.7-16.9); LYMPH % 10.1 % (8-40); MCH 28.4 pg (25.7-33.7); MCHC 33.2 g/dl (32.0-35.9); MEAN CELL VOLUME 85.5 fl (80-96); MEAN PLT VOLUME 9.2 fl (7.5-11.1); MONO % 8.4 % (3.8-10.2); NEUT % 77.6 % (42.8-82.8); PLATELET COUNT 211 K/MM3 (134-434); RBC 3.83 M/mm3 (4.00-5.60); RDW 16.1 % (11.9-15.9)
[2019-12-18 08:32] LABS: ALBUMIN 1.6 g/dl (3.4-5.0); BILIRUBIN,TOTAL 2.9 mg/dL (0.2-1); BLOOD UREA NITROGEN 49.6 mg/dL (7-18); POTASSIUM 4.5 mmol/L (3.5-5.1); TOT PROT 5.8 g/dl (6.4-8.2)
[2019-12-18 08:51] LABS: CREATININE 9.4 mg/dL (0.55-1.3)
--- NOTE | 2019-12-18 09:35 | PN ---
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 Been having 3-5 episodes of diarrhea ongoing for past month. Had paroxysmal SVT in past in setting of infection, denies having a fib. Does not make urine. Denies cough, nasal congestion, chest pain, SOB, AB pain. - Current Medication List Current Medications: Active Medications Acetaminophen (Tylenol -) 650 mg PO Q6H PRN PRN Reason: FEVER Last Admin: 12/18/19 06:43 Dose: 650 mg Atorvastatin Calcium (Lipitor -) 40 mg PO HS [facility] Last Admin: 12/17/19 21:29 Dose: 40 mg Carvedilol (Coreg -) 25 mg PO BID [facility] Last Admin: 12/17/19 21:29 Dose: 25 mg Cinacalcet (Sensipar -) 60 mg PO DAILY [facility] Clopidogrel Bisulfate (Plavix -) 75 mg PO DAILY [facility] Diltiazem HCl (Cardizem -) 60 mg PO Q6HPO [facility] Last Admin: 12/18/19 06:42 Dose: 60 mg Nafcillin Sodium 2 gm/ (Dextrose) 100 mls @ 100 mls/hr IVPB Q4H-IV [facility]; Protocol Last Admin: 12/18/19 06:42 Dose: 100 mls/hr Piperacillin Sod/Tazobactam (Sod 2.25 gm/ Dextrose) 50 mls @ 100 mls/hr IVPB Q8H-IV [facility]; Protocol Last Admin: 12/18/19 02:00 Dose: 100 mls/hr Sodium Chloride (Normal Saline -) 250 mls @ 3,000 mls/hr IV PRN PRN PRN Reason: Hypotension during Dialysis Stop: 12/18/19 17:54 Insulin Aspart (Novolog Vial Sliding Scale -) 1 vial SQ ACHS [facility]; Protocol Last Admin: 12/18/19 06:35 Dose: Not Given Pantoprazole Sodium (Protonix -) 40 mg PO DAILY [facility] Sodium Zirconium Cyclosilicate (Lokelma) 5 gm PO DAILY@1400 [facility] - Objective Vital Signs: Vital Signs Temperature 98.1 F 12/18/19 07:26 Pulse Rate 84 12/18/19 08:15 Respiratory Rate 18 12/18/19 08:15 Blood Pressure 83/64 L 12/18/19 08:15 O2 Sat by Pulse Oximetry (%) 98 12/18/19 07:26 Eyes: Yes: WNL, Conjunctiva Clear, EOM Intact HENT: Yes: WNL, Atraumatic, Normocephalic Neck: Yes: WNL, Supple, Trachea Midline Cardiovascular: Yes: Pulse Irregular, S1, S2 Respiratory: Yes: WNL, Regular, CTA Bilaterally Gastrointestinal: Yes: WNL, Normal Bowel Sounds Genitourinary: Yes: WNL Musculoskeletal: Yes: WNL Extremities: Yes: WNL Edema: No Integumentary: Yes: WNL Neurological: Yes: WNL, Alert, Oriented ...Motor Strength: WNL Psychiatric: Yes: WNL Labs: CBC, BMP 12/18/19 07:08 12/18/19 07:08 INR, PTT INR 1.39 (0.83-1.09) H 12/17/19 05:12 Assessment/Plan Problems (1) New onset atrial fibrillation Assessment/Plan: Telemetry: AF; controlled VR. Plan: On carvedilol 25 mg bid. On diltiazem 60 mg q6h; plan to taper off if HR and rhythm stabilize. Plan to add lisinopril if BP allows (for systolic CHF). Maintain electrolytes WNL. Code(s): I48.91 - UNSPECIFIED ATRIAL FIBRILLATION (2) Amputated toe of right foot Assessment/Plan: PAD. Will need vascular workup, which may be done as outpatient. Code(s): S98.131A - COMPLETE TRAUMATIC AMPUTATION OF ONE RIGHT LESSER TOE, INIT (3) Dialysis patient Assessment/Plan: hemodialysis 3x/wk per jig box operator. Code(s): Z99.2 - DEPENDENCE ON RENAL DIALYSIS (4) HTN (hypertension) Code(s): I10 - ESSENTIAL (PRIMARY) HYPERTENSION (5) SOB (shortness of breath) Code(s): R06.02 - SHORTNESS OF BREATH (6) Sepsis Code(s): A41.9 - SEPSIS, UNSPECIFIED ORGANISM Qualifiers: Sepsis type: sepsis due to unspecified organism Qualified Code(s): A41.9 - Sepsis, unspecified organism (7) Type 2 diabetes mellitus with foot ulcer Code(s): E11.621 - TYPE 2 DIABETES MELLITUS WITH FOOT ULCER; L97.509 - NON- PRESSURE CHRONIC ULCER OTH PRT UNSP FOOT W UNSP SEVERITY (8) Elevated troponin I measurement Assessment/Plan: TNI 0.02-->0.37-->0.32; CK became elevated, but low CKMB relative index. EKG: AF; no significant STT abnormalities. ECHO: mildly decreased LVEF. Demand ischemia from multiple contributors, including AF with RVR, Systolic CHF , pain.fever. Communication with pt's hat braider: Hx coronary artery stent: ?2016; on ASA and clopidogrel. Stress MIBI 12/2017: no ischemia; possible inferior wall infarct; reduced LVEF. Code(s): R74.8 - ABNORMAL LEVELS OF OTHER SERUM ENZYMES (9) Weakness Assessment/Plan: CT head: no acute pathology. Neurology w/u in progress: right femoral mononeuropathy; diabetic peripheral neuropathy. Code(s): R53.1 - WEAKNESS (10) [place] cardiac risk >20% in next 10 years Assessment/Plan: Hx coronary PCI ?2015; on ASA and clopidogrel. Pt had stress MIBI 12/26: no ischemia. Now with elevated TNI, atypical chest pain. Plan for further evaluation of coronary arteries when stable (CVA presently being ruled out; AF with periods of RVR). Code(s): Z91.89 - [facility] PERSONAL RISK FACTORS, NOT ELSEWHERE CLASSIFIED (11) Systolic CHF Assessment/Plan: 12/2019 ECHO: mildly reduced LVEF (40-45%). (12/26 gated studies on stress MIBI: 33% LVEF). Start lisinopril. On beta blockers (changed to carvedilol). On diltiazem, but plan to taper off (reduced LVEF) once beta ema dose is optimized, and if HR allows. F/u BUN/Cr, electrolytes, daily weight, Is and Os. Code(s): I50.20 - UNSPECIFIED SYSTOLIC (CONGESTIVE) HEART FAILURE (12) Chest wall pain Assessment/Plan: Pt for surgery today for I&D of left anterior axillary abscess. Restart IV heparin, warfarin PO as soon as hemostasis is achieved post-surgery. Code(s): R07.89 - OTHER CHEST PAIN (13) Thoracic ascending aortic aneurysm Assessment/Plan: 3.9 cm; f/u q 3-6 months. F/u with vascular surgeon. On carvedilol (HR control of AF; decrease shear stress). Problems reviewed: Yes Code(s): I71.2 - THORACIC AORTIC ANEURYSM, WITHOUT RUPTURE
[2019-12-18] MEDS: PANTOPRAZOLE 40 MG TABLET PO SCH (10:35)
[2019-12-18] MEDS: CARVEDILOL 25 MG TABLET (FP) PO SCH ×2 (10:35→21:11)
--- NOTE | 2019-12-18 10:40 | PN ---
Progress Note (short form) - Note Progress Note: 64yo M s/p Left chest wall I&D POD 1. Pt seen and examined at bedside. Pt complains of mild tenderness around incision site. afebrile Last Vital Signs Temp Pulse Resp BP Pulse Ox 98.1 F 75 18 121/61 98 12/18/19 07:26 12/18/19 09:45 12/18/19 09:45 12/18/19 09:45 12/18/19 07:26 CBC, BMP 12/18/19 07:08 12/18/19 07:08 PE: Gen: A&O X3 Resp: breathing comfortably Chest: I&D incision is clean with no erythema or purulent discharge, serosanguinous drainage, packing removed and repacked with saline gauze. Problem List - Problems (1) Abscess of chest wall Assessment/Plan: Plan -will continue daily packing -continue abx as per medicine/ID -monitor for fever -will follow Code(s): L02.213 - CUTANEOUS ABSCESS OF CHEST WALL
--- NOTE | 2019-12-18 11:06 | PN ---
Progress Note, Physician History of Present Illness: PULMONARY ALERT, COMFORTABLE ON HD, -RESP DISTRESS,S/P I+D CHEST WALL ABSCESS - Current Medication List Current Medications: Active Medications Acetaminophen (Tylenol -) 650 mg PO Q6H PRN PRN Reason: FEVER Last Admin: 12/18/19 10:36 Dose: 650 mg Atorvastatin Calcium (Lipitor -) 40 mg PO HS [facility] Last Admin: 12/17/19 21:29 Dose: 40 mg Carvedilol (Coreg -) 25 mg PO BID [facility] Last Admin: 12/18/19 10:35 Dose: 25 mg Cinacalcet (Sensipar -) 60 mg PO DAILY [facility] Clopidogrel Bisulfate (Plavix -) 75 mg PO DAILY [facility] Diltiazem HCl (Cardizem -) 60 mg PO Q6HPO [facility] Last Admin: 12/18/19 06:42 Dose: 60 mg Nafcillin Sodium 2 gm/ (Dextrose) 100 mls @ 100 mls/hr IVPB Q4H-IV [facility]; Protocol Last Admin: 12/18/19 06:42 Dose: 100 mls/hr Piperacillin Sod/Tazobactam (Sod 2.25 gm/ Dextrose) 50 mls @ 100 mls/hr IVPB Q8H-IV [facility]; Protocol Last Admin: 12/18/19 02:00 Dose: 100 mls/hr Sodium Chloride (Normal Saline -) 250 mls @ 3,000 mls/hr IV PRN PRN PRN Reason: Hypotension during Dialysis Stop: 12/18/19 17:54 Insulin Aspart (Novolog Vial Sliding Scale -) 1 vial SQ ACHS [facility]; Protocol Last Admin: 12/18/19 10:58 Dose: 2 units Pantoprazole Sodium (Protonix -) 40 mg PO DAILY [facility] Last Admin: 12/18/19 10:35 Dose: 40 mg Sodium Zirconium Cyclosilicate (Lokelma) 5 gm PO DAILY@1400 [facility] - Objective Vital Signs: Vital Signs Temperature 98.1 F 12/18/19 07:26 Pulse Rate 75 12/18/19 09:45 Respiratory Rate 18 12/18/19 09:45 Blood Pressure 121/61 12/18/19 09:45 O2 Sat by Pulse Oximetry (%) 98 12/18/19 07:26 Constitutional: Yes: Well Nourished, Calm Eyes: Yes: WNL HENT: Yes: WNL Neck: Yes: WNL Cardiovascular: Yes: Pulse Irregular, S1, S2 Gastrointestinal: Yes: Normal Bowel Sounds, Soft Extremities: Yes: WNL Edema: No Labs: CBC, BMP 12/18/19 07:08 12/18/19 07:08 INR, PTT INR 1.39 (0.83-1.09) H 12/17/19 05:12 Assessment/Plan Problem List - Problems (1) Abnormal CT of the chest Code(s): R93.89 - ABNORMAL FINDINGS ON DX IMAGING OF OT BODY STRUCTURES (2) Abscess Code(s): L02.91 - CUTANEOUS ABSCESS, UNSPECIFIED (3) Chest wall pain Code(s): R07.89 - OTHER CHEST PAIN (4) ESRD (end stage renal disease) Code(s): N18.6 - END STAGE RENAL DISEASE (5) New onset atrial fibrillation Code(s): I48.91 - UNSPECIFIED ATRIAL FIBRILLATION (6) Obesity Code(s): E66.9 - OBESITY, UNSPECIFIED (7) Weakness Code(s): R53.1 - WEAKNESS (8) Diabetes Code(s): E11.9 - TYPE 2 DIABETES MELLITUS WITHOUT COMPLICATIONS Qualifiers: 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
--- NOTE | 2019-12-18 11:27 | PN ---
HC Provider Note Provider Note: Anesthesia Post Op Note Pt s/p GA for chest wall I&D Pt awake alert in process of hemodialysis Pt denies n/v, puritis, VSS no apparent anesthesia complications John Greenberg.
[2019-12-18] MEDS: CINACALCET HCL 30 MG TAB (FP) PO SCH (11:38)
--- NOTE | 2019-12-18 12:44 | PN ---
Progress Note (short form) - Note Progress Note: Renal follow up for ESRD on HD Seen and examined at the bedside awake and alert s/p dialysis earlier today with 3L UF no sob, cp, fever, chills, N/V/D s/p I and D of chest wall abcess over the weekend Vital Signs Temperature 98.1 F 12/18/19 07:26 Pulse Rate 74 12/18/19 12:00 Respiratory Rate 18 12/18/19 12:00 Blood Pressure 114/54 L 12/18/19 12:00 O2 Sat by Pulse Oximetry (%) 98 12/18/19 07:26 Intake & Output 12/15/19 12/16/19 12/17/19 12/18/19 23:59 23:59 23:59 23:59 Intake Total 7053 296 7055 750 Output Total 5500 Balance -3960 570 1275 750 Weight 127.006 kg NAD RRR Dec BS at lung bases, no rales dressing on chest wall soft NT/ND, Obese, no rebound or guarding no LE edema, cyanosis no focal neurologic deficits CBC, BMP 12/18/19 07:08 12/18/19 07:08 Current Medications Acetaminophen (Tylenol -) 650 mg PO Q6H PRN PRN Reason: FEVER Last Admin: 12/18/19 10:36 Dose: 650 mg Atorvastatin Calcium (Lipitor -) 40 mg PO HS [facility] Last Admin: 12/17/19 21:29 Dose: 40 mg Carvedilol (Coreg -) 25 mg PO BID [facility] Last Admin: 12/18/19 10:35 Dose: 25 mg Cinacalcet (Sensipar -) 60 mg PO DAILY [facility] Last Admin: 12/18/19 11:38 Dose: 60 mg Clopidogrel Bisulfate (Plavix -) 75 mg PO DAILY [facility] Diltiazem HCl (Cardizem -) 60 mg PO Q6HPO [facility] Last Admin: 12/18/19 11:36 Dose: 60 mg Nafcillin Sodium 2 gm/ (Dextrose) 100 mls @ 100 mls/hr IVPB Q4H-IV [facility]; Protocol Last Admin: 12/18/19 12:11 Dose: 100 mls/hr Piperacillin Sod/Tazobactam (Sod 2.25 gm/ Dextrose) 50 mls @ 100 mls/hr IVPB Q8H-IV [facility]; Protocol Last Admin: 12/18/19 12:11 Dose: 100 mls/hr Sodium Chloride (Normal Saline -) 250 mls @ 3,000 mls/hr IV PRN PRN PRN Reason: Hypotension during Dialysis Stop: 12/18/19 17:54 Insulin Aspart (Novolog Vial Sliding Scale -) 1 vial SQ ACHS [facility]; Protocol Last Admin: 12/18/19 10:58 Dose: 2 units Pantoprazole Sodium (Protonix -) 40 mg PO DAILY [facility] Last Admin: 12/18/19 10:35 Dose: 40 mg Sodium Zirconium Cyclosilicate (Lokelma) 5 gm PO DAILY@1400 [facility] 64 year old gentleman with history of ESRD on HD (MWF), DM, PVD Osteomylitis, hx of SVT/PSVT who presented from the dialysis center with fever and tachycardia. 1. Fever (Influenza negative, CXR w/o infiltrates) 2. Hyperkalemia 3. Tachycardia/Afib with RVR 4. ESRD on HD 5. DM 6. Hypertension tolerated dialysis this am with 3L UF next planned dialysis is Wednesday continue Lokelma for potassium management Continue nafcillin as per ID Surgical follow up for abcess Most recent blood cutlures w/o growth pain control as needed continue renvela TID with meals for hyperphosphatemia Thank you Meet Pedro DO
[2019-12-18] MEDS: SODIUM ZIRCONIUM CYCLOSILICATE (LOKELMA) 5 GM PACKET PO SCH (13:09)
[2019-12-18] MEDS ORDERED: MAG HYDROX/AL HYDROX/SIMETH 30 ML UNIT-DOSE CUP PO ONE (16:59)
--- NOTE | 2019-12-18 17:33 | PN ---
Progress Note, Physician History of Present Illness: stable - Current Medication List Current Medications: Active Medications Acetaminophen (Tylenol -) 650 mg PO Q6H PRN PRN Reason: FEVER Last Admin: 12/18/19 10:36 Dose: 650 mg Atorvastatin Calcium (Lipitor -) 40 mg PO HS [facility] Last Admin: 12/17/19 21:29 Dose: 40 mg Carvedilol (Coreg -) 25 mg PO BID [facility] Last Admin: 12/18/19 10:35 Dose: 25 mg Cinacalcet (Sensipar -) 60 mg PO DAILY [facility] Last Admin: 12/18/19 11:38 Dose: 60 mg Clopidogrel Bisulfate (Plavix -) 75 mg PO DAILY [facility] Diltiazem HCl (Cardizem -) 60 mg PO Q6HPO [facility] Last Admin: 12/18/19 17:20 Dose: 60 mg Nafcillin Sodium 2 gm/ (Dextrose) 100 mls @ 100 mls/hr IVPB Q4H-IV [facility]; Protocol Last Admin: 12/18/19 17:23 Dose: 100 mls/hr Piperacillin Sod/Tazobactam (Sod 2.25 gm/ Dextrose) 50 mls @ 100 mls/hr IVPB Q8H-IV [facility]; Protocol Last Admin: 12/18/19 17:19 Dose: 100 mls/hr Sodium Chloride (Normal Saline -) 250 mls @ 3,000 mls/hr IV PRN PRN PRN Reason: Hypotension during Dialysis Stop: 12/18/19 17:54 Insulin Aspart (Novolog Vial Sliding Scale -) 1 vial SQ ACHS [facility]; Protocol Last Admin: 12/18/19 17:07 Dose: 2 units Pantoprazole Sodium (Protonix -) 40 mg PO DAILY [facility] Last Admin: 12/18/19 10:35 Dose: 40 mg Sodium Zirconium Cyclosilicate (Lokelma) 5 gm PO DAILY@1400 [facility] Last Admin: 12/18/19 13:09 Dose: 5 gm - Objective Vital Signs: Vital Signs Temperature 98.3 F 12/18/19 14:00 Pulse Rate 115 H 12/18/19 14:00 Respiratory Rate 18 12/18/19 12:00 Blood Pressure 119/94 12/18/19 14:00 O2 Sat by Pulse Oximetry (%) 98 12/18/19 07:26 Constitutional: Yes: No Distress HENT: Yes: Atraumatic Neck: Yes: Supple Cardiovascular: Yes: Regular Rate and Rhythm Respiratory: Yes: CTA Bilaterally Gastrointestinal: Yes: Normal Bowel Sounds Extremities: Yes: WNL Edema: No Neurological: Yes: Alert, Oriented Labs: CBC, BMP 12/18/19 07:08 12/18/19 07:08 INR, PTT INR 1.39 (0.83-1.09) H 12/17/19 05:12 Problem List - Problems (1) Abscess of chest wall Assessment/Plan: s/p I and d on abx Code(s): L02.213 - CUTANEOUS ABSCESS OF CHEST WALL (2) ESRD (end stage renal disease) Assessment/Plan: on hd renal on board Code(s): N18.6 - END STAGE RENAL DISEASE (3) New onset atrial fibrillation Assessment/Plan: on meds Code(s): I48.91 - UNSPECIFIED ATRIAL FIBRILLATION (4) Diabetes Assessment/Plan: on meds Code(s): E11.9 - TYPE 2 DIABETES MELLITUS WITHOUT COMPLICATIONS Qualifiers: Diabetes mellitus 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
--- NOTE | 2019-12-18 19:24 | PN ---
Progress Note, Physician - Current Medication List Current Medications: Active Medications Acetaminophen (Tylenol -) 650 mg PO Q6H PRN PRN Reason: FEVER Last Admin: 12/18/19 10:36 Dose: 650 mg Atorvastatin Calcium (Lipitor -) 40 mg PO HS [facility] Last Admin: 12/17/19 21:29 Dose: 40 mg Carvedilol (Coreg -) 25 mg PO BID [facility] Last Admin: 12/18/19 10:35 Dose: 25 mg Cinacalcet (Sensipar -) 60 mg PO DAILY [facility] Last Admin: 12/18/19 11:38 Dose: 60 mg Clopidogrel Bisulfate (Plavix -) 75 mg PO DAILY [facility] Diltiazem HCl (Cardizem -) 60 mg PO Q6HPO [facility] Last Admin: 12/18/19 17:20 Dose: 60 mg Nafcillin Sodium 2 gm/ (Dextrose) 100 mls @ 100 mls/hr IVPB Q4H-IV [facility]; Protocol Last Admin: 12/18/19 17:23 Dose: 100 mls/hr Piperacillin Sod/Tazobactam (Sod 2.25 gm/ Dextrose) 50 mls @ 100 mls/hr IVPB Q8H-IV [facility]; Protocol Last Admin: 12/18/19 17:19 Dose: 100 mls/hr Sodium Chloride (Normal Saline -) 250 mls @ 3,000 mls/hr IV PRN PRN PRN Reason: Hypotension during Dialysis Stop: 12/18/19 17:54 Insulin Aspart (Novolog Vial Sliding Scale -) 1 vial SQ ACHS [facility]; Protocol Last Admin: 12/18/19 17:07 Dose: 2 units Pantoprazole Sodium (Protonix -) 40 mg PO DAILY [facility] Last Admin: 12/18/19 10:35 Dose: 40 mg Sodium Zirconium Cyclosilicate (Lokelma) 5 gm PO DAILY@1400 [facility] Last Admin: 12/18/19 13:09 Dose: 5 gm - Objective Vital Signs: Vital Signs Temperature 98.3 F 12/18/19 14:00 Pulse Rate 115 H 12/18/19 14:00 Respiratory Rate 18 12/18/19 12:00 Blood Pressure 119/94 12/18/19 14:00 O2 Sat by Pulse Oximetry (%) 98 12/18/19 07:26 Labs: CBC, BMP 12/18/19 07:08 12/18/19 07:08 INR, PTT INR 1.39 (0.83-1.09) H 12/17/19 05:12
[2019-12-18] MEDS: ATORVASTATIN CA 40 MG TABLET (FP) PO SCH (21:12)
--- NOTE | 2019-12-19 01:28 | PN ---
Progress Note (short form) - Note Progress Note: PAtient seen and examined Was sleeping Wke u[ Conversant Last Vital Signs Temp Pulse Resp BP Pulse Ox 98.3 F 111 H 20 122/72 98 12/18/19 14:00 12/18/19 18:00 12/18/19 18:00 12/18/19 18:00 12/18/19 07:26 Cor: RSR, No murmurs, No gallops Lungs: Clear to P&A Abd: Soft, Normal bowel sounds, No organomegaly Ext:No significant edema Skin: No rashes, Integument intact Abnormal Lab Results 12/18/19 12/18/19 07:08 07:08 RBC 3.83 L Hgb 10.9 L Hct 32.8 L RDW 16.1 H Sodium 135 L Chloride 95 L BUN 49.6 H Creatinine 9.4 H* Random Glucose 147 H Calcium 8.0 L Total Bilirubin 2.9 H Alkaline Phosphatase 152 H Total Protein 5.8 L Albumin 1.6 L Active Medications Generic Name Dose Route Start Last Admin Trade Name Freq PRN Reason Stop Dose Admin Acetaminophen 650 mg 12/17/19 17:28 12/18/19 21:12 Tylenol - PO 650 mg Q6H PRN Administration FEVER Atorvastatin Calcium 40 mg 12/17/19 22:00 12/18/19 21:12 Lipitor - PO 40 mg HS [facility] Administration Carvedilol 25 mg 12/17/19 22:00 12/18/19 21:11 Coreg - PO 25 mg BID [facility] Administration Cinacalcet 60 mg 12/18/19 10:00 12/18/19 11:38 Sensipar - PO 60 mg DAILY [facility] Administration Clopidogrel Bisulfate 75 mg 12/18/19 10:00 Plavix - PO DAILY [facility] Diltiazem HCl 60 mg 12/17/19 18:00 12/18/19 17:20 Cardizem - PO 60 mg Q6HPO [facility] Administration Nafcillin Sodium 2 gm/ 100 mls @ 100 mls/hr 12/17/19 18:00 12/18/19 21:11 Dextrose IVPB 100 mls/hr Q4H-IV [facility] Administration Protocol Piperacillin Sod/Tazobactam 50 mls @ 100 mls/hr 12/17/19 18:00 12/18/19 17:19 Sod 2.25 gm/ Dextrose IVPB 100 mls/hr Q8H-IV [facility] Administration Protocol Sodium Chloride 250 mls @ 3,000 mls/hr 12/17/19 17:54 Normal Saline - IV 12/18/19 17:54 PRN PRN Hypotension during Dialysis Insulin Aspart 1 vial 12/17/19 22:00 12/18/19 21:23 Novolog Vial Sliding Scale - SQ 2 units ACHS [facility] Administration Protocol Pantoprazole Sodium 40 mg 12/18/19 10:00 12/18/19 10:35 Protonix - PO 40 mg DAILY [facility] Administration Sodium Zirconium Cyclosilicate 5 gm 12/18/19 14:00 12/18/19 13:09 Lokelma PO 5 gm DAILY@1400 [facility] Administration A/P 64yM w PMHx ESRD on Hd (MWF), obesity, nonsustained/parxysmal SVT, HTN, IDDM, ESBL osteomyelitis, PVD presenting w 1d fever, tachycardia, body aches and 1mo diarrhea. New onset afib/.RVR 1. Fever / S. aureus bacteremia 2. Hyperkalemia 3. Tachycardia/Afib with RVR 4. ESRD on HD 5. DM 6. Hypertension 7. Rt. femoral mononeuropathy---being worked up 8. Jehovahs witness Infection of left pectoralis major --on antibiotcs per ID Afib/elevated INR Coumadin on hold s/p vit. K 10mg x2 days Patient refusing any blood products, even if he were to be in a life threatening situation and was facing imminent . s/p debridement of lt. infraclavicular muscle infection--12/17/09 s/p dDAVP Will check CBC --consider venofer 200mg QOD x 5 doses, B!2, Folate and procrit as necessary Discussed benefits/risks of procrit including potentially life threatening blood clots, thrombotic events RLE weakness -? mononeuropathy check CT LS spine
[2019-12-19] MEDS ORDERED: PT OWN MED DRAWER 7, Y5N ONE ×5 (01:41→17:54)
[2019-12-19] MEDS ORDERED: PIPERACILLIN/TAZOBACTAM 2.25 GM VIAL IVPB ONE ×3 (01:42→17:37)
[2019-12-19] MEDS ORDERED: DEXTROSE 5%-WATER - 50 ML IVPB ONE ×3 (01:43→17:38)
[2019-12-19] MEDS: NAFCILLIN - 2 GM in DEXTROSE 5%-WATER - 100 ML IVPB SCH ×6 (02:25→21:37)
[2019-12-19] MEDS: PIPERACILLIN/TAZOB 2.25 GM 2.25 GM in DEXTROSE 5%-WATER - 50 ML IVPB SCH ×3 (02:25→17:46)
[2019-12-19] MEDS: dilTIAZem HCL 60 MG TABLET (FP) PO SCH ×4 (05:27→21:38)
[2019-12-19] MEDS: INSULIN SLIDING SCALE (NOVOLOG) 1 VIAL SQ SCH ×4 (07:00→21:49)
[2019-12-19] MEDS ORDERED: oxyCODONE HCL 5 MG TABLET PO PRN ×2 (08:16→08:17)
[2019-12-19] MEDS: ACETAMINOPHEN 325 MG TABLET (FP) PO PRN ×2 (08:22→17:58)
[2019-12-19 08:25] LABS: BLOOD UREA NITROGEN 25.6 mg/dL (7-18); CALCIUM 7.9 mg/dL (8.5-10.1); CREATININE 6.5 mg/dL (0.55-1.3)
--- NOTE | 2019-12-19 09:34 | PN ---
Progress Note (short form) - Note Progress Note: Clinically improving Afebrile Wound clean dressing changed Follow up cultures and adjust antibiotics accordingly Problem List - Problems (1) Abscess Code(s): L02.91 - CUTANEOUS ABSCESS, UNSPECIFIED
[2019-12-19] MEDS: CARVEDILOL 25 MG TABLET (FP) PO SCH ×2 (09:47→21:38)
[2019-12-19] MEDS: PANTOPRAZOLE 40 MG TABLET PO SCH (09:48)
[2019-12-19] MEDS: CLOPIDOGREL BISULFATE 75 MG TABLET (FP) PO SCH (09:48)
[2019-12-19] MEDS: CINACALCET HCL 30 MG TAB (FP) PO SCH (09:51)
--- NOTE | 2019-12-19 11:31 | PN ---
Progress Note, Physician History of Present Illness: PULMONARY ALERT,COMFORTABLE,-SOB,AFEBRILE,BLOOD CULTURES + STAPH AUREUS - Current Medication List Current Medications: Active Medications Acetaminophen (Tylenol -) 650 mg PO Q6H PRN PRN Reason: FEVER Last Admin: 12/19/19 08:22 Dose: 650 mg Atorvastatin Calcium (Lipitor -) 40 mg PO HS [facility] Last Admin: 12/18/19 21:12 Dose: 40 mg Carvedilol (Coreg -) 25 mg PO BID [facility] Last Admin: 12/19/19 09:47 Dose: 25 mg Cinacalcet (Sensipar -) 60 mg PO DAILY [facility] Last Admin: 12/19/19 09:51 Dose: 60 mg Clopidogrel Bisulfate (Plavix -) 75 mg PO DAILY [facility] Last Admin: 12/19/19 09:48 Dose: 75 mg Diltiazem HCl (Cardizem -) 60 mg PO Q6HPO [facility] Last Admin: 12/19/19 05:27 Dose: 60 mg Nafcillin Sodium 2 gm/ (Dextrose) 100 mls @ 100 mls/hr IVPB Q4H-IV [facility]; Protocol Last Admin: 12/19/19 09:47 Dose: 100 mls/hr Piperacillin Sod/Tazobactam (Sod 2.25 gm/ Dextrose) 50 mls @ 100 mls/hr IVPB Q8H-IV [facility]; Protocol Last Admin: 12/19/19 09:47 Dose: 100 mls/hr Sodium Chloride (Normal Saline -) 250 mls @ 3,000 mls/hr IV PRN PRN PRN Reason: Hypotension during Dialysis Stop: 12/18/19 17:54 Insulin Aspart ([facility]olog Vial Sliding [facility] -) [facility]; [facility] Last Admin: 12/19/19 11:22 Dose: 2 units Oxycodone HCl (Roxicodone -) 5 mg PO Q6H PRN PRN Reason: PAIN LEVEL 1-5 Oxycodone HCl (Roxicodone -) 10 mg PO Q6H PRN PRN Reason: PAIN LEVEL 6-10 Pantoprazole Sodium (Protonix -) 40 mg PO DAILY [facility] Last Admin: 12/19/19 09:48 Dose: 40 mg Sodium Zirconium Cyclosilicate (Lokelma) 5 gm PO DAILY@1400 [facility] Last Admin: 12/18/19 13:09 Dose: 5 gm - Objective Vital Signs: Vital Signs Temperature 98.5 F 12/19/19 08:24 Pulse Rate 100 H 12/19/19 08:24 Respiratory Rate 20 12/19/19 08:24 Blood Pressure 154/74 12/19/19 05:35 O2 Sat by Pulse Oximetry (%) 98 12/19/19 08:24 Constitutional: Yes: Well Nourished, Calm Eyes: Yes: WNL HENT: Yes: WNL Neck: Yes: WNL Cardiovascular: Yes: Regular Rate and Rhythm, S1, S2 Respiratory: Yes: CTA Bilaterally Gastrointestinal: Yes: Normal Bowel Sounds, Soft Extremities: Yes: WNL Edema: Yes Edema: LLE: Trace, RLE: Trace Labs: CBC, BMP 12/19/19 05:30 INR, PTT INR 1.39 (0.83-1.09) H 12/17/19 05:12 Assessment/Plan Problem List - Problems (1) Abnormal CT of the chest Code(s): R93.89 - ABNORMAL FINDINGS ON DX IMAGING OF OTH BODY STRUCTURES (2) Abscess Code(s): L02.91 - CUTANEOUS ABSCESS, UNSPECIFIED (3) Chest wall pain Code(s): R07.89 - OTHER CHEST PAIN (4) ESRD (end stage renal disease) Code(s): N18.6 - END STAGE RENAL DISEASE (5) New onset atrial fibrillation Code(s): I48.91 - UNSPECIFIED ATRIAL FIBRILLATION (6) Obesity Code(s): E66.9 - OBESITY, UNSPECIFIED (7) Weakness Code(s): R53.1 - WEAKNESS (8) Diabetes Code(s): E11.9 - TYPE 2 DIABETES MELLITUS WITHOUT COMPLICATIONS Qualifiers: 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 STAPH BACTEREMIA Assessment/Plan LEFT CHEST WALL ABSCESS S/P DEBRIDEMENT ABNORMALITIES ON LUNG CT APPEAR CHRONIC AND SUBPLEURAL WOULD REPEAT CT CHEST AN OUTPATIENT IN 2 MONTHS IF INCREASE IN SIZE WOULD REQUEST PET SCAN ABX PER ID DR ORTEZ
[2019-12-19] MEDS ORDERED: MAG HYDROX/AL HYDROX/SIMETH 30 ML UNIT-DOSE CUP PO ONE (11:38)
[2019-12-19] MEDS: SODIUM ZIRCONIUM CYCLOSILICATE (LOKELMA) 5 GM PACKET PO SCH (13:10)
[2019-12-19] MEDS ORDERED: SODIUM CHLORIDE 250 ML IV PRN (13:22)
--- NOTE | 2019-12-19 13:22 | PN ---
Progress Note (short form) - Note Progress Note: Renal follow up for ESRD on HD Seen and examined at the bedside awake and alert feels better denies any sob, cp, fever, chills s/p washout of chest wall abcess Vital Signs Temperature 98.5 F 12/19/19 08:24 Pulse Rate 100 H 12/19/19 08:24 Respiratory Rate 20 12/19/19 08:24 Blood Pressure 154/74 12/19/19 05:35 O2 Sat by Pulse Oximetry (%) 98 12/19/19 08:24 Intake & Output 12/16/19 12/17/19 12/18/19 12/19/19 23:59 23:59 23:59 23:59 Intake Total 570 1275 1710 390 Output Total 200 Balance 570 1275 1510 390 NAD RRR Dec BS at lung bases, no rales dressing on chest wall soft NT/ND, Obese, no rebound or guarding no LE edema, cyanosis no focal neurologic deficits CBC, BMP 12/19/19 05:30 Current Medications Acetaminophen (Tylenol -) 650 mg PO Q6H PRN PRN Reason: FEVER Last Admin: 12/19/19 08:22 Dose: 650 mg Atorvastatin Calcium (Lipitor -) 40 mg PO HS [facility] Last Admin: 12/18/19 21:12 Dose: 40 mg Carvedilol (Coreg -) 25 mg PO BID [facility] Last Admin: 12/19/19 09:47 Dose: 25 mg Cinacalcet (Sensipar -) 60 mg PO DAILY [facility] Last Admin: 12/19/19 09:51 Dose: 60 mg Clopidogrel Bisulfate (Plavix -) 75 mg PO DAILY [facility] Last Admin: 12/19/19 09:48 Dose: 75 mg Diltiazem HCl (Cardizem -) 60 mg PO Q6HPO [facility] Last Admin: 12/19/19 11:43 Dose: 60 mg Nafcillin Sodium 2 gm/ (Dextrose) 100 mls @ 100 mls/hr IVPB Q4H-IV [facility]; Protocol Last Admin: 12/19/19 09:47 Dose: 100 mls/hr Piperacillin Sod/Tazobactam (Sod 2.25 gm/ Dextrose) 50 mls @ 100 mls/hr IVPB Q8H-IV [facility]; Protocol Last Admin: 12/19/19 09:47 Dose: 100 mls/hr Sodium Chloride (Normal Saline -) 250 mls @ 3,000 mls/hr IV PRN PRN PRN Reason: Hypotension during Dialysis Stop: 12/18/19 17:54 Insulin Aspart (Novolog Vial Sliding Scale -) 1 vial SQ ACHS [facility]; Protocol Last Admin: 12/19/19 11:22 Dose: 2 units Oxycodone HCl (Roxicodone -) 5 mg PO Q6H PRN PRN Reason: PAIN LEVEL 1-5 Oxycodone HCl (Roxicodone -) 10 mg PO Q6H PRN PRN Reason: PAIN LEVEL 6-10 Pantoprazole Sodium (Protonix -) 40 mg PO DAILY [facility] Last Admin: 12/19/19 09:48 Dose: 40 mg Sodium Zirconium Cyclosilicate (Lokelma) 5 gm PO DAILY@1400 [facility] Last Admin: 12/19/19 13:10 Dose: 5 gm 64 year old gentleman with history of ESRD on HD (MWF), DM, PVD Osteomylitis, hx of SVT/PSVT who presented from the dialysis center with fever and tachycardia. 1. Fever (Influenza negative, CXR w/o infiltrates) 2. Hyperkalemia 3. Tachycardia/Afib with RVR 4. ESRD on HD 5. DM 6. Hypertension No acute need for dialysis today, next treatment planned for tomorrow. Renal diet, 1.2L fluid restriction continue Lokelma for potassium management Continue nafcillin as per ID, ? if it can be convert to Ancef for outpatient management Surgical follow up for abcess. Dressing changes. Most recent blood cutlures w/o growth pain control as needed continue renvela TID with meals for hyperphosphatemia Thank you Meet Pedro DO
--- NOTE | 2019-12-19 17:54 | PN ---
Progress Note, Physician Chief Complaint: Pt A&Ox3; mild pain at left upper axillary site of surgery. Able to move right leg;significant more strength. History of Present Illness: 64yM w PMHx ESRD on Hd (MWF), obesity, nonsustained/paroxysmal SVT, HTN, diastolic CHF, IDDM, ESBL osteomyelitis/s/p right 5th toe amputation, PVD, obesity (once weighed 400 lbs; with attention to food and "trying hard to exercise"; he has reduced to 280 lbs over the past few years), ?sleep apnea, presenting w fever, tachycardia, body aches starting yesterday. Been having 3-5 episodes of diarrhea ongoing for past month. Had paroxysmal SVT in past in setting of infection; denies having AF. Does not make urine. Denies cough, nasal congestion, chest pain, SOB, AB pain. PMD: Dr. Jameel Jauregui Cardiologsit: Dr. Jayne Odom - Current Medication List Current Medications: Active Medications Acetaminophen (Tylenol -) 650 mg PO Q6H PRN PRN Reason: FEVER Last Admin: 12/19/19 08:22 Dose: 650 mg Atorvastatin Calcium (Lipitor -) 40 mg PO HS [facility] Last Admin: 12/18/19 21:12 Dose: 40 mg Carvedilol (Coreg -) 25 mg PO BID [facility] Last Admin: 12/19/19 09:47 Dose: 25 mg Cinacalcet (Sensipar -) 60 mg PO DAILY [facility] Last Admin: 12/19/19 09:51 Dose: 60 mg Clopidogrel Bisulfate (Plavix -) 75 mg PO DAILY [facility] Last Admin: 12/19/19 09:48 Dose: 75 mg Diltiazem HCl (Cardizem -) 60 mg PO Q6HPO [facility] Last Admin: 12/19/19 11:43 Dose: 60 mg Nafcillin Sodium 2 gm/ (Dextrose) 100 mls @ 100 mls/hr IVPB Q4H-IV [facility]; Protocol Last Admin: 12/19/19 15:26 Dose: 100 mls/hr Piperacillin Sod/Tazobactam (Sod 2.25 gm/ Dextrose) 50 mls @ 100 mls/hr IVPB Q8H-IV [facility]; Protocol Last Admin: 12/19/19 09:47 Dose: 100 mls/hr Sodium Chloride (Normal Saline -) 250 mls @ 3,000 mls/hr IV PRN PRN PRN Reason: Hypotension during Dialysis Stop: 12/18/19 17:54 Sodium Chloride (Normal Saline -) 250 mls @ 3,000 mls/hr IV PRN PRN PRN Reason: Hypotension during Dialysis Stop: 12/20/19 13:22 Insulin Aspart (Novolog Vial Sliding Scale -) 1 vial SQ ACHS [facility]; Protocol Last Admin: 12/19/19 16:40 Dose: 2 units Oxycodone HCl (Roxicodone -) 5 mg PO Q6H PRN PRN Reason: PAIN LEVEL 1-5 Oxycodone HCl (Roxicodone -) 10 mg PO Q6H PRN PRN Reason: PAIN LEVEL 6-10 Pantoprazole Sodium (Protonix -) 40 mg PO DAILY [facility] Last Admin: 12/19/19 09:48 Dose: 40 mg Sodium Zirconium Cyclosilicate (Lokelma) 5 gm PO DAILY@1400 [facility] Last Admin: 12/19/19 13:10 Dose: 5 gm - Objective Vital Signs: Vital Signs Temperature 97.8 F 12/19/19 14:00 Pulse Rate 101 H 12/19/19 14:00 Respiratory Rate 20 12/19/19 08:24 Blood Pressure 144/68 12/19/19 14:00 O2 Sat by Pulse Oximetry (%) 98 12/19/19 08:24 Constitutional: Yes: Calm Eyes: Yes: WNL HENT: Yes: WNL Neck: Yes: WNL Cardiovascular: Yes: S1 (varies in intensity), S2 Respiratory: Yes: WNL Gastrointestinal: Yes: Soft, Abdomen, Obese. No: Tenderness ...Rectal Exam: Yes: Deferred Genitourinary: Yes: Anuria Breast(s): Yes: WNL Musculoskeletal: Yes: Muscle Weakness Edema: No Peripheral Pulses WNL: Yes Integumentary: Yes: Venous Stasis Changes Neurological: Yes: Alert, Oriented, Weakness Psychiatric: Yes: WNL Labs: CBC, BMP 12/19/19 05:30 INR, PTT INR 1.39 (0.83-1.09) H 12/17/19 05:12 Abnormal Lab Results 12/19/19 05:30 BUN 25.6 H Creatinine 6.5 H Random Glucose 130 H Calcium 7.9 L Iron Saturation 17 L Ferritin 2800.1 H Vitamin B12 2273 H - ....Imaging Cat Scan: Image Reviewed (LS CT: no compression) Problem List - Problems (1) New onset atrial fibrillation Assessment/Plan: Telemetry: AF; controlled VR. Plan: On carvedilol 25 mg bid. On diltiazem 60 mg (now decreased to tid. On lisinopril. Restart IV heparin (if cleared by surgeon) until warfarin-->INR 2-3. Maintain electrolytes WNL. Code(s): I48.91 - UNSPECIFIED ATRIAL FIBRILLATION (2) Amputated toe of right foot Assessment/Plan: PAD. Will need vascular workup, which may be done as outpatient. Code(s): S98.131A - COMPLETE TRAUMATIC AMPUTATION OF ONE RIGHT LESSER TOE, INIT (3) Dialysis patient Assessment/Plan: hemodialysis 3x/wk per mixer machine feeder. Code(s): Z99.2 - DEPENDENCE ON RENAL DIALYSIS (4) HTN (hypertension) Code(s): I10 - ESSENTIAL (PRIMARY) HYPERTENSION (5) SOB (shortness of breath) Code(s): R06.02 - SHORTNESS OF BREATH (6) Sepsis Code(s): A41.9 - SEPSIS, UNSPECIFIED ORGANISM Qualifiers: Sepsis type: sepsis due to unspecified organism Qualified Code(s): A41.9 - Sepsis, unspecified organism (7) Type 2 diabetes mellitus with foot ulcer Code(s): E11.621 - TYPE 2 DIABETES MELLITUS WITH FOOT ULCER; L97.509 - NON- PRESSURE CHRONIC ULCER OTH PRT UNSP FOOT W UNSP SEVERITY (8) Elevated troponin I measurement Code(s): R74.8 - ABNORMAL LEVELS OF OTHER SERUM ENZYMES (9) Weakness Assessment/Plan: CT head: no acute pathology. Neurology w/u in progress: right femoral mononeuropathy; diabetic peripheral neuropathy. Code(s): R53.1 - WEAKNESS (10) [place] cardiac risk >20% in next 10 years Assessment/Plan: Hx coronary PCI ?2015; on ASA and clopidogrel. Pt had stress MIBI 12/26: no ischemia. Now with elevated TNI, atypical chest pain. Plan for further evaluation of coronary arteries when stable (CVA presently being ruled out; AF with periods of RVR). Code(s): Z91.89 - OTH PERSONAL RISK FACTORS, NOT ELSEWHERE CLASSIFIED (11) Systolic CHF Assessment/Plan: 12/2019 ECHO: mildly reduced LVEF (40-45%). (12/26 gated studies on stress MIBI: 33% LVEF). Started lisinopril. On beta blockers (changed to carvedilol). On diltiazem; dose reduced to 60 mg tid. F/u BUN/Cr, electrolytes, daily weight, Is and Os. Code(s): I50.20 - UNSPECIFIED SYSTOLIC (CONGESTIVE) HEART FAILURE (12) Chest wall pain Assessment/Plan: Pt for surgery today for I&D of left anterior axillary abscess. Restart IV heparin, warfarin PO as soon as hemostasis is achieved post-surgery. Code(s): R07.89 - OTHER CHEST PAIN (13) Thoracic ascending aortic aneurysm Assessment/Plan: 3.9 cm; f/u q 3-6 months. F/u with vascular surgeon. On carvedilol (HR control of AF; reduced LVEF; will decrease shear stress). Code(s): I71.2 - THORACIC AORTIC ANEURYSM, WITHOUT RUPTURE (14) Obesity Assessment/Plan: Pt has a goal of lowering weight to 200 lbs (was once 400 lbs). Code(s): E66.9 - OBESITY, UNSPECIFIED
[2019-12-19] MEDS ORDERED: LISINOPRIL 5 MG TABLET (FP) PO ONE (18:01)
--- NOTE | 2019-12-19 20:49 | PN ---
Progress Note (short form) - Note Progress Note: Patient seen and examined S/P abscess drainage Organism - Staph aureus On nafcillin Complains of pain at surgical site Last Vital Signs Temp Pulse Resp BP Pulse Ox 98.9 F 106 H 20 146/82 98 12/19/19 18:00 12/19/19 18:00 12/19/19 18:00 12/19/19 18:00 12/19/19 08:24 Dressing site -dry Lungs -diminished breath sounds Regular rhythm, occasional extrasystole Abdomen - obese CBC, BMP 12/19/19 05:30 Current Medications Generic Name Dose Route Start Last Admin Trade Name Freq PRN Reason Stop Dose Admin Acetaminophen 650 mg 12/17/19 17:28 12/19/19 17:58 Tylenol - PO 650 mg Q6H PRN Administration FEVER Atorvastatin Calcium 40 mg 12/17/19 22:00 12/18/19 21:12 Lipitor - PO 40 mg HS [facility] Administration Carvedilol 25 mg 12/17/19 22:00 12/19/19 09:47 Coreg - PO 25 mg BID [facility] Administration Cinacalcet 60 mg 12/18/19 10:00 12/19/19 09:51 Sensipar - PO 60 mg DAILY [facility] Administration Clopidogrel Bisulfate 75 mg 12/18/19 10:00 12/19/19 09:48 Plavix - PO 75 mg DAILY [facility] Administration Diltiazem HCl 60 mg 12/19/19 22:00 Cardizem - PO TID [facility] Nafcillin Sodium 2 gm/ 100 mls @ 100 mls/hr 12/17/19 18:00 12/19/19 17:55 Dextrose IVPB 100 mls/hr Q4H-IV [facility] Administration Protocol Piperacillin Sod/Tazobactam 50 mls @ 100 mls/hr 12/17/19 18:00 12/19/19 17:46 Sod 2.25 gm/ Dextrose IVPB 100 mls/hr Q8H-IV [facility] Administration Protocol Sodium Chloride 250 mls @ 3,000 mls/hr 12/17/19 17:54 Normal Saline - IV 12/18/19 17:54 PRN PRN Hypotension during Dialysis Sodium Chloride 250 mls @ 3,000 mls/hr 12/19/19 13:22 Normal Saline - IV 12/20/19 13:22 PRN PRN Hypotension during Dialysis Insulin Aspart 1 vial 12/17/19 22:00 12/19/19 16:40 Novolog Vial Sliding Scale - SQ 2 units ACHS [facility] Administration Protocol Lisinopril 5 mg 12/20/19 10:00 Prinivil PO DAILY [facility] Oxycodone HCl 5 mg 12/19/19 08:16 Roxicodone - PO Q6H PRN PAIN LEVEL 1-5 Oxycodone HCl 10 mg 12/19/19 08:17 Roxicodone - PO Q6H PRN PAIN LEVEL 6-10 Pantoprazole Sodium 40 mg 12/18/19 10:00 12/19/19 09:48 Protonix - PO 40 mg DAILY [facility] Administration Sodium Zirconium Cyclosilicate 5 gm 12/18/19 14:00 12/19/19 13:10 Lokelma PO 5 gm DAILY@1400 [facility] Administration Impression: S/P drainage of abscess- staph aureus Ab per ID ESRD/HD Jehovah witness- no intervention Hct - stable. Continue to monitor CBC
[2019-12-19] MEDS: ATORVASTATIN CA 40 MG TABLET (FP) PO SCH (21:38)
--- NOTE | 2019-12-19 23:17 | PN ---
Progress Note, Physician History of Present Illness: No new complaints - Current Medication List Current Medications: Active Medications Acetaminophen (Tylenol -) 650 mg PO Q6H PRN PRN Reason: FEVER Last Admin: 12/19/19 17:58 Dose: 650 mg Atorvastatin Calcium (Lipitor -) 40 mg PO HS [facility] Last Admin: 12/19/19 21:38 Dose: 40 mg Carvedilol (Coreg -) 25 mg PO BID [facility] Last Admin: 12/19/19 21:38 Dose: 25 mg Cinacalcet (Sensipar -) 60 mg PO DAILY [facility] Last Admin: 12/19/19 09:51 Dose: 60 mg Clopidogrel Bisulfate (Plavix -) 75 mg PO DAILY [facility] Last Admin: 12/19/19 09:48 Dose: 75 mg Diltiazem HCl (Cardizem -) 60 mg PO TID [facility] Last Admin: 12/19/19 21:38 Dose: 60 mg Nafcillin Sodium 2 gm/ (Dextrose) 100 mls @ 100 mls/hr IVPB Q4H-IV [facility]; Protocol Last Admin: 12/19/19 21:37 Dose: 100 mls/hr Piperacillin Sod/Tazobactam (Sod 2.25 gm/ Dextrose) 50 mls @ 100 mls/hr IVPB Q8H-IV [facility]; Protocol Last Admin: 12/19/19 17:46 Dose: 100 mls/hr Sodium Chloride (Normal Saline -) 250 mls @ 3,000 mls/hr IV PRN PRN PRN Reason: Hypotension during Dialysis Stop: 12/18/19 17:54 Sodium Chloride (Normal Saline -) 250 mls @ 3,000 mls/hr IV PRN PRN PRN Reason: Hypotension during Dialysis Stop: 12/20/19 13:22 Insulin Aspart (Novolog Vial Sliding Scale -) 1 vial SQ ACHS [facility]; Protocol Last Admin: 12/19/19 21:49 Dose: 2 units Lisinopril (Prinivil) 5 mg PO DAILY [facility] Oxycodone HCl (Roxicodone -) 5 mg PO Q6H PRN PRN Reason: PAIN LEVEL 1-5 Last Admin: 12/19/19 21:41 Dose: 5 mg Oxycodone HCl (Roxicodone -) 10 mg PO Q6H PRN PRN Reason: PAIN LEVEL 6-10 Pantoprazole Sodium (Protonix -) 40 mg PO DAILY [facility] Last Admin: 12/19/19 09:48 Dose: 40 mg Sodium Zirconium Cyclosilicate (Lokelma) 5 gm PO DAILY@1400 [facility] Last Admin: 12/19/19 13:10 Dose: 5 gm - Objective Vital Signs: Vital Signs Temperature 98.9 F 12/19/19 18:00 Pulse Rate 106 H 12/19/19 18:00 Respiratory Rate 20 12/19/19 18:00 Blood Pressure 146/82 12/19/19 18:00 O2 Sat by Pulse Oximetry (%) 98 12/19/19 08:24 Constitutional: Yes: Obese Neck: Yes: WNL, Supple Cardiovascular: Yes: WNL, Regular Rate and Rhythm Respiratory: Yes: WNL, Regular, CTA Bilaterally Gastrointestinal: Yes: WNL, Normal Bowel Sounds, Soft, Abdomen, Obese Labs: CBC, BMP 12/19/19 05:30 INR, PTT INR 1.39 (0.83-1.09) H 12/17/19 05:12 Problem List - Problems (1) Abscess Assessment/Plan: CT scan chest showed Lt upper 1/3 pectoralis muscle swelling w/ foci air/gas and ?pulmonary wedge shaped ? infarct S/P I&D of lt ant chest wall Follow cultures Cont IV antibxs Code(s): L02.91 - CUTANEOUS ABSCESS, UNSPECIFIED (2) Sepsis Assessment/Plan: Due to staph aureus bacteremia Repeat BC remain negative Cont IV naficillin/zosyn w/ dialysis Code(s): A41.9 - SEPSIS, UNSPECIFIED ORGANISM Qualifiers: Sepsis type: sepsis due to unspecified organism Qualified Code(s): A41.9 - Sepsis, unspecified organism (3) Weakness Assessment/Plan: Ct scan head was unremarkable Neuro consult noted ?femoral neuropathy Code(s): R53.1 - WEAKNESS (4) ESRD (end stage renal disease) Assessment/Plan: Pt on dialysis As per renal Code(s): N18.6 - END STAGE RENAL DISEASE (5) New onset atrial fibrillation Assessment/Plan: ?Due to sepsis/fever/Pt is allergic to pork therefore cannot use heparin Also cannot use new AC's meds due to ESRD Restart coumadin Cont metoprolol/cardizem Code(s): I48.91 - UNSPECIFIED ATRIAL FIBRILLATION (6) HTN (hypertension) Code(s): I10 - ESSENTIAL (PRIMARY) HYPERTENSION (7) Diabetes Assessment/Plan: Cont sliding scale w/ coverage Code(s): E11.9 - TYPE 2 DIABETES MELLITUS WITHOUT COMPLICATIONS Qualifiers: Diabetes mellitus alf insulin use: unspecified alf insulin use status Diabetes mellitus complication status: with circulatory complication (8) Obesity Code(s): E66.9 - OBESITY, UNSPECIFIED
[2019-12-20] MEDS ORDERED: PT OWN MED DRAWER 7, Y5N ONE ×4 (01:05→13:03)
[2019-12-20] MEDS ORDERED: PIPERACILLIN/TAZOBACTAM 2.25 GM VIAL IVPB ONE ×2 (01:07→09:24)
[2019-12-20] MEDS ORDERED: DEXTROSE 5%-WATER - 50 ML IVPB ONE ×3 (01:07→17:34)
[2019-12-20] MEDS: PIPERACILLIN/TAZOB 2.25 GM 2.25 GM in DEXTROSE 5%-WATER - 50 ML IVPB SCH ×2 (02:17→10:24)
[2019-12-20] MEDS: NAFCILLIN - 2 GM in DEXTROSE 5%-WATER - 100 ML IVPB SCH ×3 (02:17→10:27)
[2019-12-20] MEDS: dilTIAZem HCL 60 MG TABLET (FP) PO SCH ×3 (05:26→21:25)
[2019-12-20] MEDS: INSULIN SLIDING SCALE (NOVOLOG) 1 VIAL SQ SCH ×4 (06:24→22:11)
[2019-12-20 07:19] LABS: HEMATOCRIT 30.5 % (35.4-49); HEMOGLOBIN 10.1 GM/dL (11.7-16.9); MCH 29.2 pg (25.7-33.7); MEAN CELL VOLUME 88.4 fl (80-96); MEAN PLT VOLUME 8.7 fl (7.5-11.1); PLATELET COUNT 183 K/MM3 (134-434); RBC 3.45 M/mm3 (4.00-5.60); WHITE BLOOD COUNT 6.8 K/mm3 (4.0-10.0)
[2019-12-20 07:33] LABS: INR 1.22 (0.83-1.09); PROTHROMBIN TIME (PATIENT) 14.4 SEC (9.7-13.0)
[2019-12-20] MEDS: PANTOPRAZOLE 40 MG TABLET PO SCH (10:22)
[2019-12-20] MEDS: CLOPIDOGREL BISULFATE 75 MG TABLET (FP) PO SCH (10:22)
[2019-12-20] MEDS: CARVEDILOL 25 MG TABLET (FP) PO SCH ×2 (10:23→21:25)
[2019-12-20] MEDS: LISINOPRIL 5 MG TABLET (FP) PO SCH (10:23)
[2019-12-20] MEDS: CINACALCET HCL 30 MG TAB (FP) PO SCH (10:27)
[2019-12-20] MEDS: ACETAMINOPHEN 325 MG TABLET (FP) PO PRN ×2 (10:34→18:33)
--- NOTE | 2019-12-20 11:04 | PN ---
Progress Note, Physician History of Present Illness: PULMONARY ALERT,COMFORTABLE ON HD,-SOB - Current Medication List Current Medications: Active Medications Acetaminophen (Tylenol -) 650 mg PO Q6H PRN PRN Reason: FEVER Last Admin: 12/20/19 10:34 Dose: 650 mg Atorvastatin Calcium (Lipitor -) 40 mg PO HS [facility] Last Admin: 12/19/19 21:38 Dose: 40 mg Carvedilol (Coreg -) 25 mg PO BID [facility] Last Admin: 12/20/19 10:23 Dose: Not Given Cinacalcet (Sensipar -) 60 mg PO DAILY [facility] Last Admin: 12/20/19 10:27 Dose: 60 mg Clopidogrel Bisulfate (Plavix -) 75 mg PO DAILY [facility] Last Admin: 12/20/19 10:22 Dose: 75 mg Diltiazem HCl (Cardizem -) 60 mg PO TID [facility] Last Admin: 12/20/19 05:26 Dose: 60 mg Nafcillin Sodium 2 gm/ (Dextrose) 100 mls @ 100 mls/hr IVPB Q4H-IV [facility]; Protocol Last Admin: 12/20/19 10:27 Dose: 100 mls/hr Piperacillin Sod/Tazobactam (Sod 2.25 gm/ Dextrose) 50 mls @ 100 mls/hr IVPB Q8H-IV [facility]; Protocol Last Admin: 12/20/19 10:24 Dose: 100 mls/hr Sodium Chloride (Normal Saline -) 250 mls @ 3,000 mls/hr IV PRN PRN PRN Reason: Hypotension during Dialysis Stop: 12/18/19 17:54 Sodium Chloride (Normal Saline -) 250 mls @ 3,000 mls/hr IV PRN PRN PRN Reason: Hypotension during Dialysis Stop: 12/20/19 13:22 Insulin Aspart (Novolog Vial Sliding Scale -) 1 vial SQ ACHS [facility]; Protocol Last Admin: 12/20/19 06:24 Dose: Not Given Lisinopril (Prinivil) 5 mg PO DAILY [facility] Last Admin: 12/20/19 10:23 Dose: Not Given Oxycodone HCl (Roxicodone -) 5 mg PO Q6H PRN PRN Reason: PAIN LEVEL 1-5 Last Admin: 12/19/19 21:41 Dose: 5 mg Oxycodone HCl (Roxicodone -) 10 mg PO Q6H PRN PRN Reason: PAIN LEVEL 6-10 Last Admin: 12/20/19 10:36 Dose: 10 mg Pantoprazole Sodium (Protonix -) 40 mg PO DAILY [facility] Last Admin: 12/20/19 10:22 Dose: 40 mg Sodium Zirconium Cyclosilicate (Lokelma) 5 gm PO DAILY@1400 [facility] Last Admin: 12/19/19 13:10 Dose: 5 gm Warfarin Sodium (Coumadin -) 7.5 mg PO DAILY@1800 [facility] - Objective Vital Signs: Vital Signs Temperature 98.4 F 12/20/19 07:10 Pulse Rate 90 12/20/19 10:15 Respiratory Rate 18 12/20/19 10:15 Blood Pressure 124/80 12/20/19 10:15 O2 Sat by Pulse Oximetry (%) 97 12/20/19 08:24 Constitutional: Yes: Well Nourished, Calm Eyes: Yes: WNL HENT: Yes: WNL Neck: Yes: WNL Cardiovascular: Yes: Regular Rate and Rhythm, S1, S2 Respiratory: Yes: CTA Bilaterally Gastrointestinal: Yes: Normal Bowel Sounds, Soft Extremities: Yes: WNL Edema: Yes Edema: LLE: Trace, RLE: Trace Labs: CBC, BMP 12/20/19 06:55 12/20/19 06:55 INR, PTT INR 1.22 (0.83-1.09) H 12/20/19 06:55 Assessment/Plan Problem List - Problems (1) Abnormal CT of the chest Code(s): R93.89 - ABNORMAL FINDINGS ON DX IMAGING OF [facility] BODY STRUCTURES (2) Abscess Code(s): L02.91 - CUTANEOUS ABSCESS, UNSPECIFIED (3) Chest wall pain Code(s): R07.89 - OTHER CHEST PAIN (4) ESRD (end stage renal disease) Code(s): N18.6 - END STAGE RENAL DISEASE (5) New onset atrial fibrillation Code(s): I48.91 - UNSPECIFIED ATRIAL FIBRILLATION (6) Obesity Code(s): E66.9 - OBESITY, UNSPECIFIED (7) Weakness Code(s): R53.1 - WEAKNESS (8) Diabetes Code(s): E11.9 - TYPE 2 DIABETES MELLITUS WITHOUT COMPLICATIONS Qualifiers: Diabetes mellitus 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 STAPH BACTEREMIA Assessment/Plan LEFT CHEST WALL ABSCESS S/P DEBRIDEMENT ABNORMALITIES ON LUNG CT APPEAR CHRONIC AND SUBPLEURAL WOULD REPEAT CT CHEST AN OUTPATIENT IN 2 MONTHS IF INCREASE IN SIZE WOULD REQUEST PET SCAN ABX PER ID DR ORTEZ
[2019-12-20 12:58] LABS: BLOOD UREA NITROGEN 11.6 mg/dL (7-18); CALCIUM 7.8 mg/dL (8.5-10.1); PHOSPHOROUS 3.1 mg/dL (2.5-4.9); POTASSIUM 3.4 mmol/L (3.5-5.1)
[2019-12-20] MEDS: SODIUM ZIRCONIUM CYCLOSILICATE (LOKELMA) 5 GM PACKET PO SCH ×2 (13:04→13:10)
--- NOTE | 2019-12-20 13:18 | PN ---
Progress Note, Physician History of Present Illness: improving looks better - Current Medication List Current Medications: Active Medications Acetaminophen (Tylenol -) 650 mg PO Q6H PRN PRN Reason: FEVER Last Admin: 12/20/19 10:34 Dose: 650 mg Atorvastatin Calcium (Lipitor -) 40 mg PO HS [facility] Last Admin: 12/19/19 21:38 Dose: 40 mg Carvedilol (Coreg -) 25 mg PO BID [facility] Last Admin: 12/20/19 10:23 Dose: Not Given Cinacalcet (Sensipar -) 60 mg PO DAILY [facility] Last Admin: 12/20/19 10:27 Dose: 60 mg Clopidogrel Bisulfate (Plavix -) 75 mg PO DAILY [facility] Last Admin: 12/20/19 10:22 Dose: 75 mg Diltiazem HCl (Cardizem -) 60 mg PO TID [facility] Last Admin: 12/20/19 13:04 Dose: 60 mg Sodium Chloride (Normal Saline -) 250 mls @ 3,000 mls/hr IV PRN PRN PRN Reason: Hypotension during Dialysis Stop: 12/18/19 17:54 Sodium Chloride (Normal Saline -) 250 mls @ 3,000 mls/hr IV PRN PRN PRN Reason: Hypotension during Dialysis Stop: 12/20/19 13:22 Cefazolin Sodium 1 gm/ (Dextrose) 50 mls @ 100 mls/hr IVPB Q8H-IV [facility] Insulin Aspart (Novolog Vial Sliding Scale -) 1 vial SQ ACHS [facility]; Protocol Last Admin: 12/20/19 13:01 Dose: 2 units Lisinopril (Prinivil) 5 mg PO DAILY [facility] Last Admin: 12/20/19 10:23 Dose: Not Given Oxycodone HCl (Roxicodone -) 5 mg PO Q6H PRN PRN Reason: PAIN LEVEL 1-5 Last Admin: 12/19/19 21:41 Dose: 5 mg Oxycodone HCl (Roxicodone -) 10 mg PO Q6H PRN PRN Reason: PAIN LEVEL 6-10 Last Admin: 12/20/19 10:36 Dose: 10 mg Pantoprazole Sodium (Protonix -) 40 mg PO DAILY [facility] Last Admin: 12/20/19 10:22 Dose: 40 mg Sodium Zirconium Cyclosilicate (Lokelma) 5 gm PO DAILY@1400 [facility] Last Admin: 12/20/19 13:10 Dose: Not Given Warfarin Sodium (Coumadin -) 7.5 mg PO DAILY@1800 [facility] - Objective Vital Signs: Vital Signs Temperature 98 F 12/20/19 10:00 Pulse Rate 88 12/20/19 11:45 Respiratory Rate 18 12/20/19 11:45 Blood Pressure 130/72 12/20/19 11:45 O2 Sat by Pulse Oximetry (%) 97 12/20/19 08:24 Constitutional: Yes: No Distress, Calm Cardiovascular: Yes: S1, S2 Respiratory: Yes: Regular, CTA Bilaterally Gastrointestinal: Yes: Normal Bowel Sounds, Soft Musculoskeletal: Yes: WNL Extremities: Yes: Other Wound/Incision: Yes: Dressing Dry and Intact Neurological: Yes: Alert, Oriented Psychiatric: Yes: Alert, Oriented Labs: CBC, BMP 12/20/19 06:55 12/20/19 08:56 INR, PTT INR 1.22 (0.83-1.09) H 12/20/19 06:55 Assessment/Plan Problem List - Problems (1) Atrial fibrillation with rapid ventricular response Code(s): I48.91 - UNSPECIFIED ATRIAL FIBRILLATION (2) ESRD (end stage renal disease) Code(s): N18.6 - END STAGE RENAL DISEASE (3) Hyperkalemia Code(s): E87.5 - HYPERKALEMIA (4) New onset atrial fibrillation Code(s): I48.91 - UNSPECIFIED ATRIAL FIBRILLATION (5) Diabetes Code(s): E11.9 - TYPE 2 DIABETES MELLITUS WITHOUT COMPLICATIONS Qualifiers: Diabetes mellitus senior care insulin use: unspecified director long term care insulin use 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 male with PMH of ESRD on HD, obesity, DM, CHF, PVD, OM s/p Rt 5th toe amp, SVT/PSVT presented to the ER with fever that began during HD the day before associated with generalized weakness and body aches Sepsis Bacteremia Fever Leukocytosis New Onset AFIB ESRD on HD DM PVD Obesity CHF Hx of OM/toe plan continue abx will adjust meds wound care rest as per the team
--- NOTE | 2019-12-20 13:19 | PN ---
Progress Note, Physician History of Present Illness: stable no issues - Current Medication List Current Medications: Active Medications Acetaminophen (Tylenol -) 650 mg PO Q6H PRN PRN Reason: FEVER Last Admin: 12/20/19 10:34 Dose: 650 mg Atorvastatin Calcium (Lipitor -) 40 mg PO HS [facility] Last Admin: 12/19/19 21:38 Dose: 40 mg Carvedilol (Coreg -) 25 mg PO BID [facility] Last Admin: 12/20/19 10:23 Dose: Not Given Cinacalcet (Sensipar -) 60 mg PO DAILY [facility] Last Admin: 12/20/19 10:27 Dose: 60 mg Clopidogrel Bisulfate (Plavix -) 75 mg PO DAILY [facility] Last Admin: 12/20/19 10:22 Dose: 75 mg Diltiazem HCl (Cardizem -) 60 mg PO TID [facility] Last Admin: 12/20/19 13:04 Dose: 60 mg Sodium Chloride (Normal Saline -) 250 mls @ 3,000 mls/hr IV PRN PRN PRN Reason: Hypotension during Dialysis Stop: 12/18/19 17:54 Sodium Chloride (Normal Saline -) 250 mls @ 3,000 mls/hr IV PRN PRN PRN Reason: Hypotension during Dialysis Stop: 12/20/19 13:22 Cefazolin Sodium 1 gm/ (Dextrose) 50 mls @ 100 mls/hr IVPB Q8H-IV [facility] Insulin Aspart (Novolog Vial Sliding Scale -) 1 vial SQ ACHS [facility]; Protocol Last Admin: 12/20/19 13:01 Dose: 2 units Lisinopril (Prinivil) 5 mg PO DAILY [facility] Last Admin: 12/20/19 10:23 Dose: Not Given Oxycodone HCl (Roxicodone -) 5 mg PO Q6H PRN PRN Reason: PAIN LEVEL 1-5 Last Admin: 12/19/19 21:41 Dose: 5 mg Oxycodone HCl (Roxicodone -) 10 mg PO Q6H PRN PRN Reason: PAIN LEVEL 6-10 Last Admin: 12/20/19 10:36 Dose: 10 mg Pantoprazole Sodium (Protonix -) 40 mg PO DAILY [facility] Last Admin: 12/20/19 10:22 Dose: 40 mg Sodium Zirconium Cyclosilicate (Lokelma) 5 gm PO DAILY@1400 [facility] Last Admin: 12/20/19 13:10 Dose: Not Given Warfarin Sodium (Coumadin -) 7.5 mg PO DAILY@1800 [facility] - Objective Vital Signs: Vital Signs Temperature 98 F 12/20/19 10:00 Pulse Rate 88 12/20/19 11:45 Respiratory Rate 18 12/20/19 11:45 Blood Pressure 130/72 12/20/19 11:45 O2 Sat by Pulse Oximetry (%) 97 12/20/19 08:24 Constitutional: Yes: No Distress, Calm Cardiovascular: Yes: S1, S2 Respiratory: Yes: Regular, CTA Bilaterally Gastrointestinal: Yes: Normal Bowel Sounds, Soft Musculoskeletal: Yes: Other Extremities: Yes: WNL Wound/Incision: Yes: Dressing Dry and Intact Neurological: Yes: Alert, Oriented Psychiatric: Yes: Alert, Oriented Labs: CBC, BMP 12/20/19 06:55 12/20/19 08:56 INR, PTT INR 1.22 (0.83-1.09) H 12/20/19 06:55 Assessment/Plan Problem List - Problems (1) Atrial fibrillation with rapid ventricular response Code(s): I48.91 - UNSPECIFIED ATRIAL FIBRILLATION (2) ESRD (end stage renal disease) Code(s): N18.6 - END STAGE RENAL DISEASE (3) Hyperkalemia Code(s): E87.5 - HYPERKALEMIA (4) New onset atrial fibrillation Code(s): I48.91 - UNSPECIFIED ATRIAL FIBRILLATION (5) Diabetes Code(s): E11.9 - TYPE 2 DIABETES MELLITUS WITHOUT COMPLICATIONS Qualifiers: Diabetes mellitus long term care social worker insulin use: unspecified [facility] insulin use 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 male with PMH of ESRD on HD, obesity, DM, CHF, PVD, OM s/p Rt 5th toe amp, SVT/PSVT presented to the ER with fever that began during HD the day before associated with generalized weakness and body aches Sepsis Bacteremia Fever Leukocytosis New Onset AFIB ESRD on HD DM PVD Obesity CHF Hx of OM/toe plan continue abx wound care
--- NOTE | 2019-12-20 14:06 | PN ---
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 Been having 3-5 episodes of diarrhea ongoing for past month. Had paroxysmal SVT in past in setting of infection, denies having a fib. Does not make urine. Denies cough, nasal congestion, chest pain, SOB, AB pain. - Current Medication List Current Medications: Active Medications Acetaminophen (Tylenol -) 650 mg PO Q6H PRN PRN Reason: FEVER Last Admin: 12/20/19 10:34 Dose: 650 mg Atorvastatin Calcium (Lipitor -) 40 mg PO HS [facility] Last Admin: 12/19/19 21:38 Dose: 40 mg Carvedilol (Coreg -) 25 mg PO BID [facility] Last Admin: 12/20/19 10:23 Dose: Not Given Cinacalcet (Sensipar -) 60 mg PO DAILY [facility] Last Admin: 12/20/19 10:27 Dose: 60 mg Clopidogrel Bisulfate (Plavix -) 75 mg PO DAILY [facility] Last Admin: 12/20/19 10:22 Dose: 75 mg Diltiazem HCl (Cardizem -) 60 mg PO TID [facility] Last Admin: 12/20/19 13:04 Dose: 60 mg Sodium Chloride (Normal Saline -) 250 mls @ 3,000 mls/hr IV PRN PRN PRN Reason: Hypotension during Dialysis Stop: 12/18/19 17:54 Sodium Chloride (Normal Saline -) 250 mls @ 3,000 mls/hr IV PRN PRN PRN Reason: Hypotension during Dialysis Stop: 12/20/19 13:22 Cefazolin Sodium 1 gm/ (Dextrose) 50 mls @ 100 mls/hr IVPB Q8H-IV [facility] Insulin Aspart (Novolog Vial Sliding Scale -) 1 vial SQ ACHS [facility]; Protocol Last Admin: 12/20/19 13:01 Dose: 2 units Lisinopril (Prinivil) 5 mg PO DAILY [facility] Last Admin: 12/20/19 10:23 Dose: Not Given Oxycodone HCl (Roxicodone -) 5 mg PO Q6H PRN PRN Reason: PAIN LEVEL 1-5 Last Admin: 12/19/19 21:41 Dose: 5 mg Oxycodone HCl (Roxicodone -) 10 mg PO Q6H PRN PRN Reason: PAIN LEVEL 6-10 Last Admin: 12/20/19 10:36 Dose: 10 mg Pantoprazole Sodium (Protonix -) 40 mg PO DAILY [facility] Last Admin: 12/20/19 10:22 Dose: 40 mg Sodium Zirconium Cyclosilicate (Lokelma) 5 gm PO DAILY@1400 [facility] Last Admin: 12/20/19 13:10 Dose: Not Given Warfarin Sodium (Coumadin -) 7.5 mg PO DAILY@1800 [facility] - Objective Vital Signs: Vital Signs Temperature 98 F 12/20/19 10:00 Pulse Rate 88 12/20/19 11:45 Respiratory Rate 18 12/20/19 11:45 Blood Pressure 130/72 12/20/19 11:45 O2 Sat by Pulse Oximetry (%) 97 12/20/19 08:24 Eyes: Yes: WNL, Conjunctiva Clear, EOM Intact HENT: Yes: WNL, Atraumatic, Normocephalic Neck: Yes: WNL, Supple, Trachea Midline Cardiovascular: Yes: Pulse Irregular Respiratory: Yes: WNL, Regular, CTA Bilaterally Gastrointestinal: Yes: WNL, Normal Bowel Sounds Genitourinary: Yes: WNL Musculoskeletal: Yes: WNL Extremities: Yes: WNL Edema: No Integumentary: Yes: WNL Neurological: Yes: WNL, Alert, Oriented ...Motor Strength: WNL Psychiatric: Yes: WNL Labs: CBC, BMP 12/20/19 06:55 12/20/19 08:56 INR, PTT INR 1.22 (0.83-1.09) H 12/20/19 06:55 Assessment/Plan - Problems (1) New onset atrial fibrillation Assessment/Plan: Telemetry: AF; controlled VR. Plan: On carvedilol 25 mg bid. On diltiazem 60 mg (now decreased to tid. On lisinopril. Restart IV heparin (if cleared by surgeon) until warfarin-->INR 2-3. Maintain electrolytes WNL. Code(s): I48.91 - UNSPECIFIED ATRIAL FIBRILLATION (2) Amputated toe of right foot Assessment/Plan: PAD. Will need vascular workup, which may be done as outpatient. Code(s): S98.131A - COMPLETE TRAUMATIC AMPUTATION OF ONE RIGHT LESSER TOE, INIT (3) Dialysis patient Assessment/Plan: hemodialysis 3x/wk per engagement liaison. Code(s): Z99.2 - DEPENDENCE ON RENAL DIALYSIS (4) HTN (hypertension) Code(s): I10 - ESSENTIAL (PRIMARY) HYPERTENSION (5) SOB (shortness of breath) Code(s): R06.02 - SHORTNESS OF BREATH (6) Sepsis Code(s): A41.9 - SEPSIS, UNSPECIFIED ORGANISM Qualifiers: Sepsis type: sepsis due to unspecified organism Qualified Code(s): A41.9 - Sepsis, unspecified organism (7) Type 2 diabetes mellitus with foot ulcer Code(s): E11.621 - TYPE 2 DIABETES MELLITUS WITH FOOT ULCER; L97.509 - NON- PRESSURE CHRONIC ULCER OTH PRT UNSP FOOT W UNSP SEVERITY (8) Elevated troponin I measurement Code(s): R74.8 - ABNORMAL LEVELS OF OTHER SERUM ENZYMES (9) Weakness Assessment/Plan: CT head: no acute pathology. Neurology w/u in progress: right femoral mononeuropathy; diabetic peripheral neuropathy. Code(s): R53.1 - WEAKNESS (10) Morris cardiac risk >20% in next 10 years Assessment/Plan: Hx coronary PCI ?2015; on ASA and clopidogrel. Pt had stress MIBI 12/26: no ischemia. Now with elevated TNI, atypical chest pain. Plan for further evaluation of coronary arteries when stable (CVA presently being ruled out; AF with periods of RVR). Code(s): Z91.89 - OTH PERSONAL RISK FACTORS, NOT ELSEWHERE CLASSIFIED (11) Systolic CHF Assessment/Plan: 12/2019 ECHO: mildly reduced LVEF (40-45%). (12/26 gated studies on stress MIBI: 33% LVEF). Started lisinopril. On beta blockers (changed to carvedilol). On diltiazem; dose reduced to 60 mg tid. F/u BUN/Cr, electrolytes, daily weight, Is and Os. Code(s): I50.20 - UNSPECIFIED SYSTOLIC (CONGESTIVE) HEART FAILURE (12) Chest wall pain Assessment/Plan: Pt for surgery today for I&D of left anterior axillary abscess. Restart IV heparin, warfarin PO as soon as hemostasis is achieved post-surgery. Code(s): R07.89 - OTHER CHEST PAIN (13) Thoracic ascending aortic aneurysm Assessment/Plan: 3.9 cm; f/u q 3-6 months. F/u with vascular surgeon. On carvedilol (HR control of AF; reduced LVEF; will decrease shear stress). Code(s): I71.2 - THORACIC AORTIC ANEURYSM, WITHOUT RUPTURE (14) Obesity Assessment/Plan: Pt has a goal of lowering weight to 200 lbs (was once 400 lbs). Code(s): E66.9 - OBESITY, UNSPECIFIED
--- NOTE | 2019-12-20 14:54 | PN ---
Progress Note (short form) - Note Progress Note: Renal follow up for ESRD on HD Seen and examined at the bedside awake and alert no acute complaints s/p dialysis earlier today, tolerated it well denies any cp, sob, abd pain, N/V/D, fever, chills, CAAL or confusion Vital Signs Temperature 98 F 12/20/19 10:00 Pulse Rate 88 12/20/19 11:45 Respiratory Rate 18 12/20/19 11:45 Blood Pressure 130/72 12/20/19 11:45 O2 Sat by Pulse Oximetry (%) 97 12/20/19 08:24 Intake & Output 12/17/19 12/18/19 12/19/19 12/20/19 23:59 23:59 23:59 23:59 Intake Total 1275 1710 1340 740 Output Total 200 Balance 1275 1510 1340 740 NAD neck supple dressing over left chest wall RRR Dec BS at lung bases, no rales dressing on chest wall soft NT/ND, Obese, no rebound or guarding no LE edema, cyanosis no focal neurologic deficits CBC, BMP 12/20/19 06:55 12/20/19 08:56 Current Medications Acetaminophen (Tylenol -) 650 mg PO Q6H PRN PRN Reason: FEVER Last Admin: 12/20/19 10:34 Dose: 650 mg Atorvastatin Calcium (Lipitor -) 40 mg PO HS [facility] Last Admin: 12/19/19 21:38 Dose: 40 mg Carvedilol (Coreg -) 25 mg PO BID [facility] Last Admin: 12/20/19 10:23 Dose: Not Given Cinacalcet (Sensipar -) 60 mg PO DAILY [facility] Last Admin: 12/20/19 10:27 Dose: 60 mg Clopidogrel Bisulfate (Plavix -) 75 mg PO DAILY [facility] Last Admin: 12/20/19 10:22 Dose: 75 mg Diltiazem HCl (Cardizem -) 60 mg PO TID [facility] Last Admin: 12/20/19 13:04 Dose: 60 mg Sodium Chloride (Normal Saline -) 250 mls @ 3,000 mls/hr IV PRN PRN PRN Reason: Hypotension during Dialysis Stop: 12/18/19 17:54 Sodium Chloride (Normal Saline -) 250 mls @ 3,000 mls/hr IV PRN PRN PRN Reason: Hypotension during Dialysis Stop: 12/20/19 13:22 Cefazolin Sodium 1 gm/ (Dextrose) 50 mls @ 100 mls/hr IVPB Q8H-IV [facility] Insulin Aspart (Novolog Vial Sliding Scale -) 1 vial SQ ACHS [facility]; Protocol Last Admin: 12/20/19 13:01 Dose: 2 units Lisinopril (Prinivil) 5 mg PO DAILY [facility] Last Admin: 12/20/19 10:23 Dose: Not Given Oxycodone HCl (Roxicodone -) 5 mg PO Q6H PRN PRN Reason: PAIN LEVEL 1-5 Last Admin: 12/19/19 21:41 Dose: 5 mg Oxycodone HCl (Roxicodone -) 10 mg PO Q6H PRN PRN Reason: PAIN LEVEL 6-10 Last Admin: 12/20/19 10:36 Dose: 10 mg Pantoprazole Sodium (Protonix -) 40 mg PO DAILY [facility] Last Admin: 12/20/19 10:22 Dose: 40 mg Sodium Zirconium Cyclosilicate (Lokelma) 5 gm PO DAILY@1400 [facility] Last Admin: 12/20/19 13:10 Dose: Not Given Warfarin Sodium (Coumadin -) 7.5 mg PO DAILY@1800 [facility] 64 year old gentleman with history of ESRD on HD (MWF), DM, PVD Osteomylitis, hx of SVT/PSVT who presented from the dialysis center with fever and tachycardia. 1. Fever (Influenza negative, CXR w/o infiltrates) 2. Hyperkalemia 3. Tachycardia/Afib with RVR 4. ESRD on HD 5. DM 6. Hypertension tolerated dialysis this am, next planned dialysis is Wednesday. Renal diet, 1.2L fluid restriction D/c Lokelma as K < 4 started on Cefazolin as per ID Surgical follow up for abcess. Dressing changes. Most recent blood cutlures w/o growth pain control as needed continue renvela TID with meals for hyperphosphatemia Thank you Meet Pedro DO
--- NOTE | 2019-12-20 15:53 | PN ---
Progress Note (short form) - Note Progress Note: GEneral Surgery: Pt without complaints. Vital Signs Period Temp Pulse Resp BP Sys/Martinez Pulse Ox Last 24 Hr 97.6 F-98.9 F 85-106 18-20 110-148/60-82 96-97 GEN: A&0 x3 Left chest: dressing changed. No purulent drainage noted. Irrigated wound with NS and packing removed. Repacked wound with 4x4 gauze soaked with NS. No erythema. CBC, BMP 12/20/19 06:55 12/20/19 08:56 Microbiology 12/17/19 18:00 Abscess Gram Stain - Final 12/17/19 18:00 Abscess Wound Culture - Final NO GROWTH AFTER 48 HOURS INCUBATION A/p: 64 yo male s/p Left chest wall i&d Continue local wound care, Dressing changes ordered IV abx as per ID D/w Dr. Hamilton
--- NOTE | 2019-12-20 16:32 | EKG ---
Test Reason : Blood Pressure : / mmHG Vent. Rate : 081 BPM Atrial Rate : 057 BPM P-R Int : 000 ms QRS Dur : 094 ms QT Int : 420 ms P-R-T Axes : 000 -22 197 degrees QTc Int : 487 ms ATRIAL FIBRILLATION WITH PREMATURE VENTRICULAR OR ABERRANTLY CONDUCTED COMPLEXES INCOMPLETE RIGHT BUNDLE BRANCH BLOCK NONSPECIFIC T WAVE ABNORMALITY PROLONGED QT ABNORMAL ECG WHEN COMPARED WITH ECG OF 16-DEC-2019 10:55, NONSPECIFIC T WAVE ABNORMALITY, WORSE IN LATERAL LEADS Confirmed by MD Jareth, Stanley ([id number]) on 12/20/2019 4:32:07 PM Referred By: Esmer BRASWELL Confirmed By:Stanley Templeton MD
[2019-12-20] MEDS ORDERED: ceFAZolin SODIUM 1 GM VIAL ONE (17:34)
[2019-12-20] MEDS: CEFAZOLIN 1 GM in DEXTROSE 5%-WATER - 50 ML IVPB SCH (17:44)
[2019-12-20] MEDS ORDERED: WARFARIN NA 7.5 MG TABLET (FP) PO SCH (18:00)
--- NOTE | 2019-12-20 21:17 | PN ---
Progress Note, Physician History of Present Illness: No new complaints - Current Medication List Current Medications: Active Medications Acetaminophen (Tylenol -) 650 mg PO Q6H PRN PRN Reason: FEVER Last Admin: 12/20/19 18:33 Dose: 650 mg Atorvastatin Calcium (Lipitor -) 40 mg PO HS [facility] Last Admin: 12/19/19 21:38 Dose: 40 mg Carvedilol (Coreg -) 25 mg PO BID [facility] Last Admin: 12/20/19 10:23 Dose: Not Given Cinacalcet (Sensipar -) 60 mg PO DAILY [facility] Last Admin: 12/20/19 10:27 Dose: 60 mg Clopidogrel Bisulfate (Plavix -) 75 mg PO DAILY [facility] Last Admin: 12/20/19 10:22 Dose: 75 mg Diltiazem HCl (Cardizem -) 60 mg PO TID [facility] Last Admin: 12/20/19 13:04 Dose: 60 mg Sodium Chloride (Normal Saline -) 250 mls @ 3,000 mls/hr IV PRN PRN PRN Reason: Hypotension during Dialysis Stop: 12/18/19 17:54 Sodium Chloride (Normal Saline -) 250 mls @ 3,000 mls/hr IV PRN PRN PRN Reason: Hypotension during Dialysis Stop: 12/20/19 13:22 Cefazolin Sodium 1 gm/ (Dextrose) 50 mls @ 100 mls/hr IVPB Q8H-IV [facility] Last Admin: 12/20/19 17:44 Dose: 100 mls/hr Insulin Aspart (Novolog Vial Sliding Scale -) 1 vial SQ ACHS [facility]; Protocol Last Admin: 12/20/19 17:44 Dose: Not Given Lisinopril (Prinivil) 5 mg PO DAILY [facility] Last Admin: 12/20/19 10:23 Dose: Not Given Oxycodone HCl (Roxicodone -) 5 mg PO Q6H PRN PRN Reason: PAIN LEVEL 1-5 Last Admin: 12/19/19 21:41 Dose: 5 mg Oxycodone HCl (Roxicodone -) 10 mg PO Q6H PRN PRN Reason: PAIN LEVEL 6-10 Last Admin: 12/20/19 10:36 Dose: 10 mg Pantoprazole Sodium (Protonix -) 40 mg PO DAILY [facility] Last Admin: 12/20/19 10:22 Dose: 40 mg Warfarin Sodium (Coumadin -) 7.5 mg PO DAILY@1800 [facility] Last Admin: 12/20/19 17:44 Dose: 7.5 mg - Objective Vital Signs: Vital Signs Temperature 98 F 12/20/19 17:53 Pulse Rate 107 H 12/20/19 17:53 Respiratory Rate 20 12/20/19 17:53 Blood Pressure 131/68 12/20/19 17:53 O2 Sat by Pulse Oximetry (%) 96 12/20/19 20:50 Neck: Yes: WNL, Supple Cardiovascular: Yes: WNL, Regular Rate and Rhythm Respiratory: Yes: WNL, Regular, CTA Bilaterally Gastrointestinal: Yes: WNL, Normal Bowel Sounds, Soft Labs: CBC, BMP 12/20/19 06:55 12/20/19 08:56 INR, PTT INR 1.22 (0.83-1.09) H 12/20/19 06:55 Problem List - Problems (1) Abscess Assessment/Plan: CT scan chest showed Lt upper 1/3 pectoralis muscle swelling w/ foci air/gas and ?pulmonary wedge shaped ? infarct S/P I&D of lt ant chest wall Follow cultures Cont IV antibxs Code(s): L02.91 - CUTANEOUS ABSCESS, UNSPECIFIED (2) Sepsis Assessment/Plan: Due to staph aureus bacteremia Repeat BC remain negative Cont IV naficillin/zosyn w/ dialysis Code(s): A41.9 - SEPSIS, UNSPECIFIED ORGANISM Qualifiers: Sepsis type: sepsis due to unspecified organism Qualified Code(s): A41.9 - Sepsis, unspecified organism (3) Weakness Assessment/Plan: Ct scan head was unremarkable Neuro consult noted ?femoral neuropathy Code(s): R53.1 - WEAKNESS (4) ESRD (end stage renal disease) Assessment/Plan: Pt on dialysis As per renal Code(s): N18.6 - END STAGE RENAL DISEASE (5) New onset atrial fibrillation Assessment/Plan: ?Due to sepsis/fever/Pt is allergic to pork therefore cannot use heparin Also cannot use new AC's meds due to ESRD Restart coumadin Cont metoprolol/cardizem Code(s): I48.91 - UNSPECIFIED ATRIAL FIBRILLATION (6) HTN (hypertension) Code(s): I10 - ESSENTIAL (PRIMARY) HYPERTENSION (7) Diabetes Code(s): E11.9 - TYPE 2 DIABETES MELLITUS WITHOUT COMPLICATIONS Qualifiers: 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
[2019-12-20] MEDS: ATORVASTATIN CA 40 MG TABLET (FP) PO SCH (21:25)
[2019-12-21] MEDS ORDERED: ceFAZolin SODIUM 1 GM VIAL ONE ×2 (00:51→09:35)
[2019-12-21] MEDS ORDERED: DEXTROSE 5%-WATER - 50 ML IVPB ONE ×2 (00:51→09:35)
[2019-12-21] MEDS: CEFAZOLIN 1 GM in DEXTROSE 5%-WATER - 50 ML IVPB SCH ×2 (01:13→09:53)
[2019-12-21] MEDS: ACETAMINOPHEN 325 MG TABLET (FP) PO PRN ×2 (01:32→10:01)
[2019-12-21] MEDS: dilTIAZem HCL 60 MG TABLET (FP) PO SCH ×2 (06:14→13:05)
[2019-12-21] MEDS: INSULIN SLIDING SCALE (NOVOLOG) 1 VIAL SQ SCH ×4 (06:15→22:12)
[2019-12-21] MEDS ORDERED: PT OWN MED DRAWER 7, Y5N ONE ×2 (07:03→09:35)
[2019-12-21 07:16] LABS: ALBUMIN 1.7 g/dl (3.4-5.0); BILIRUBIN,TOTAL 1.6 mg/dL (0.2-1); BLOOD UREA NITROGEN 18.5 mg/dL (7-18); CREATININE 5.5 mg/dL (0.55-1.3); POTASSIUM 4.1 mmol/L (3.5-5.1); TOT PROT 6.4 g/dl (6.4-8.2)
[2019-12-21 07:44] LABS: INR 1.09 (0.83-1.09); PROTHROMBIN TIME (PATIENT) 12.9 SEC (9.7-13.0)
[2019-12-21] MEDS: CLOPIDOGREL BISULFATE 75 MG TABLET (FP) PO SCH (09:53)
[2019-12-21] MEDS: PANTOPRAZOLE 40 MG TABLET PO SCH (09:53)
[2019-12-21] MEDS: LISINOPRIL 5 MG TABLET (FP) PO SCH (09:54)
[2019-12-21] MEDS: CARVEDILOL 25 MG TABLET (FP) PO SCH ×2 (09:54→22:11)
[2019-12-21] MEDS: CINACALCET HCL 30 MG TAB (FP) PO SCH (09:54)
--- NOTE | 2019-12-21 11:03 | PN ---
Progress Note, Physician History of Present Illness: PULMONARY ALERT,COMFORTABLE, C/O DISCOMFORT AT ABSCESS SITE,-SOB - Current Medication List Current Medications: Active Medications Acetaminophen (Tylenol -) 650 mg PO Q6H PRN PRN Reason: FEVER Last Admin: 12/21/19 10:01 Dose: 650 mg Atorvastatin Calcium (Lipitor -) 40 mg PO HS [facility] Last Admin: 12/20/19 21:25 Dose: 40 mg Carvedilol (Coreg -) 25 mg PO BID [facility] Last Admin: 12/21/19 09:54 Dose: 25 mg Cinacalcet (Sensipar -) 60 mg PO DAILY [facility] Last Admin: 12/21/19 09:54 Dose: 60 mg Clopidogrel Bisulfate (Plavix -) 75 mg PO DAILY [facility] Last Admin: 12/21/19 09:53 Dose: 75 mg Diltiazem HCl (Cardizem -) 60 mg PO TID [facility] Last Admin: 12/21/19 06:14 Dose: 60 mg Sodium Chloride (Normal Saline -) 250 mls @ 3,000 mls/hr IV PRN PRN PRN Reason: Hypotension during Dialysis Stop: 12/18/19 17:54 Sodium Chloride (Normal Saline -) 250 mls @ 3,000 mls/hr IV PRN PRN PRN Reason: Hypotension during Dialysis Stop: 12/20/19 13:22 Cefazolin Sodium 1 gm/ (Dextrose) 50 mls @ 100 mls/hr IVPB Q8H-IV [facility] Last Admin: 12/21/19 09:53 Dose: 100 mls/hr Insulin Aspart (Novolog Vial Sliding Scale -) 1 vial SQ ACHS [facility]; Protocol Last Admin: 12/21/19 06:15 Dose: Not Given Lisinopril (Prinivil) 5 mg PO DAILY [facility] Last Admin: 12/21/19 09:54 Dose: 5 mg Oxycodone HCl (Roxicodone -) 5 mg PO Q6H PRN PRN Reason: PAIN LEVEL 1-5 Last Admin: 12/19/19 21:41 Dose: 5 mg Pantoprazole Sodium (Protonix -) 40 mg PO DAILY [facility] Last Admin: 12/21/19 09:53 Dose: 40 mg Warfarin Sodium (Coumadin -) 7.5 mg PO DAILY@1800 [facility] Last Admin: 12/20/19 17:44 Dose: 7.5 mg - Objective Vital Signs: Vital Signs Temperature 97.6 F 12/21/19 10:00 Pulse Rate 114 H 12/21/19 10:00 Respiratory Rate 20 12/21/19 10:00 Blood Pressure 134/89 12/21/19 10:00 O2 Sat by Pulse Oximetry (%) 96 12/20/19 22:00 Constitutional: Yes: Well Nourished, Calm Eyes: Yes: WNL HENT: Yes: WNL Neck: Yes: WNL Cardiovascular: Yes: Pulse Irregular, S1, S2 Respiratory: Yes: Diminished Gastrointestinal: Yes: Normal Bowel Sounds, Soft Extremities: Yes: WNL Edema: No Labs: CBC, BMP 12/21/19 05:05 INR, PTT INR 1.09 (0.83-1.09) 12/21/19 05:05 Assessment/Plan Problem List - Problems (1) Abnormal CT of the chest Code(s): R93.89 - ABNORMAL FINDINGS ON DX IMAGING OF OTH BODY STRUCTURES (2) Abscess Code(s): L02.91 - CUTANEOUS ABSCESS, UNSPECIFIED (3) Chest wall pain Code(s): R07.89 - OTHER CHEST PAIN (4) ESRD (end stage renal disease) Code(s): N18.6 - END STAGE RENAL DISEASE (5) New onset atrial fibrillation Code(s): I48.91 - UNSPECIFIED ATRIAL FIBRILLATION (6) Obesity Code(s): E66.9 - OBESITY, UNSPECIFIED (7) Weakness Code(s): R53.1 - WEAKNESS (8) Diabetes Code(s): E11.9 - TYPE 2 DIABETES MELLITUS WITHOUT COMPLICATIONS Qualifiers: Diabetes mellitus senior care insulin use: 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 STAPH BACTEREMIA 14.A-FIB Assessment/Plan LEFT CHEST WALL ABSCESS S/P DEBRIDEMENT ABNORMALITIES ON LUNG CT APPEAR CHRONIC AND SUBPLEURAL WOULD REPEAT CT CHEST AN OUTPATIENT IN 2 MONTHS IF INCREASE IN SIZE WOULD REQUEST PET SCAN ABX PER ID AC DR ORTEZ
--- NOTE | 2019-12-21 12:22 | PN ---
Progress Note, Physician Chief Complaint: stable some pain at operated site - Current Medication List Current Medications: Active Medications Acetaminophen (Tylenol -) 650 mg PO Q6H PRN PRN Reason: FEVER Last Admin: 12/21/19 10:01 Dose: 650 mg Atorvastatin Calcium (Lipitor -) 40 mg PO HS [facility] Last Admin: 12/20/19 21:25 Dose: 40 mg Carvedilol (Coreg -) 25 mg PO BID [facility] Last Admin: 12/21/19 09:54 Dose: 25 mg Cinacalcet (Sensipar -) 60 mg PO DAILY [facility] Last Admin: 12/21/19 09:54 Dose: 60 mg Clopidogrel Bisulfate (Plavix -) 75 mg PO DAILY [facility] Last Admin: 12/21/19 09:53 Dose: 75 mg Diltiazem HCl (Cardizem -) 60 mg PO TID [facility] Last Admin: 12/21/19 06:14 Dose: 60 mg Sodium Chloride (Normal Saline -) 250 mls @ 3,000 mls/hr IV PRN PRN PRN Reason: Hypotension during Dialysis Stop: 12/18/19 17:54 Sodium Chloride (Normal Saline -) 250 mls @ 3,000 mls/hr IV PRN PRN PRN Reason: Hypotension during Dialysis Stop: 12/20/19 13:22 Cefazolin Sodium 1 gm/ (Dextrose) 50 mls @ 100 mls/hr IVPB Q8H-IV [facility] Last Admin: 12/21/19 09:53 Dose: 100 mls/hr Insulin Aspart (Novolog Vial Sliding Scale -) 1 vial SQ ACHS [facility]; Protocol Last Admin: 12/21/19 06:15 Dose: Not Given Lisinopril (Prinivil) 5 mg PO DAILY [facility] Last Admin: 12/21/19 09:54 Dose: 5 mg Oxycodone HCl (Roxicodone -) 5 mg PO Q6H PRN PRN Reason: PAIN LEVEL 1-5 Last Admin: 12/19/19 21:41 Dose: 5 mg Pantoprazole Sodium (Protonix -) 40 mg PO DAILY [facility] Last Admin: 12/21/19 09:53 Dose: 40 mg Warfarin Sodium (Coumadin -) 7.5 mg PO DAILY@1800 [facility] Last Admin: 12/20/19 17:44 Dose: 7.5 mg - Objective Vital Signs: Vital Signs Temperature 97.6 F 12/21/19 10:00 Pulse Rate 114 H 12/21/19 10:00 Respiratory Rate 20 12/21/19 10:00 Blood Pressure 134/89 12/21/19 10:00 O2 Sat by Pulse Oximetry (%) 96 12/20/19 22:00 Constitutional: Yes: No Distress, Calm Cardiovascular: Yes: S1, S2 Respiratory: Yes: Regular, CTA Bilaterally Gastrointestinal: Yes: Normal Bowel Sounds, Soft Musculoskeletal: Yes: WNL Extremities: Yes: WNL Wound/Incision: Yes: Dressing Dry and Intact Neurological: Yes: Alert, Oriented Psychiatric: Yes: Alert, Oriented Labs: CBC, BMP 12/20/19 06:55 12/21/19 05:05 INR, PTT INR 1.09 (0.83-1.09) 12/21/19 05:05 Assessment/Plan Problem List - Problems (1) Atrial fibrillation with rapid ventricular response Code(s): I48.91 - UNSPECIFIED ATRIAL FIBRILLATION (2) ESRD (end stage renal disease) Code(s): N18.6 - END STAGE RENAL DISEASE (3) Hyperkalemia Code(s): E87.5 - HYPERKALEMIA (4) New onset atrial fibrillation Code(s): I48.91 - UNSPECIFIED ATRIAL FIBRILLATION (5) Diabetes Code(s): E11.9 - TYPE 2 DIABETES MELLITUS WITHOUT COMPLICATIONS Qualifiers: Diabetes mellitus snf insulin use: unspecified longwall machine 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 male with PMH of ESRD on HD, obesity, DM, CHF, PVD, OM s/p Rt 5th toe amp, SVT/PSVT presented to the ER with fever that began during HD the day before associated with generalized weakness and body aches Sepsis Bacteremia Fever Leukocytosis New Onset AFIB ESRD on HD DM PVD Obesity CHF Hx of OM/toe plan continue abx wound care
--- NOTE | 2019-12-21 12:47 | OP ---
DATE OF OPERATION: 12/17/2019 PREOPERATIVE DIAGNOSIS: Soft tissue infection in the left chest wall. POSTOPERATIVE DIAGNOSIS: Soft tissue infection in the left chest wall. PROCEDURE: Incision and drainage of chest wall abscess. SURGEON: Amado Pantoja MD COMPLICATIONS: None. Patient tolerated procedure well. BLEEDING: Minimal. INDICATIONS: This is a 64-year-old male with a history of chronic renal insufficiency, diabetes and atrial fibrillation on anticoagulation and on hemodialysis who presents for evaluation of exacerbation of atrial fibrillation. During this hospitalization he developed a temperature and pain over the left shoulder. CT scan of the chest was performed, showed like an abscess collection with air gas in it near the left clavicle just deep to the pectoralis muscle for which he was referred for surgical evaluation. Patient had been running occasional temperatures. However, due to his highly elevated PT and low platelet count in a patient who is both on Coumadin and Plavix as well as the fact that he is a Anabaptist, he refused to receive FFP. As a result, we would have to wait approximately about 48 hours until his PT normalized in order to perform the procedure and he received vitamin K and DDAVP in order to improve platelet count and promote prothrombin time. DESCRIPTION OF PROCEDURE: In the OR, he was placed in the supine position. He underwent general anesthesia. The area was prepped and draped in usual sterile fashion. An incision was made over the anterior chest wall and using cautery the subcutaneous tissues were divided. Fascia over the pectoralis was divided and just inferior to the clavicle the deep space posterior to the pectoralis major was entered, and abscess collection was identified and it was drained. Cultures were obtained and it was irrigated and suctioned, and then it was packed. The packing was left in place. A dressing was applied and the patient was returned to the recovery room awake and alert, in stable condition. He tolerated procedure well. AMADO PANTOJA M.D. RADHA/[id number]
--- NOTE | 2019-12-21 14:36 | PN ---
Progress Note, Physician Chief Complaint: Pt A&Ox3;had physical therapy, but feels weak. Ongoing pain at left anterior chest wall site. History of Present Illness: 64yM w PMHx ESRD on Hd (MWF), obesity, nonsustained/paroxysmal SVT, HTN, diastolic CHF, IDDM, ESBL osteomyelitis/s/p right 5th toe amputation, PVD, obesity (once weighed 400 lbs; with attention to food and "trying hard to exercise"; he has reduced to 280 lbs over the past few years), ?sleep apnea, presenting w fever, tachycardia, body aches starting yesterday. Been having 3-5 episodes of diarrhea ongoing for past month. Had paroxysmal SVT in past in setting of infection; denies having AF. Does not make urine. Denies cough, nasal congestion, chest pain, SOB, AB pain. PMD: Dr. Jameel Jauregui Cardiologsit: Dr. Jayne Odom - Current Medication List Current Medications: Active Medications Acetaminophen (Tylenol -) 650 mg PO Q6H [facility] Stop: 12/22/19 08:31 Acetaminophen (Tylenol -) 650 mg PO Q6H PRN PRN Reason: FEVER Atorvastatin Calcium (Lipitor -) 40 mg PO HS [facility] Last Admin: 12/20/19 21:25 Dose: 40 mg Carvedilol (Coreg -) 25 mg PO BID [facility] Last Admin: 12/21/19 09:54 Dose: 25 mg Cinacalcet (Sensipar -) 60 mg PO DAILY [facility] Last Admin: 12/21/19 09:54 Dose: 60 mg Clopidogrel Bisulfate (Plavix -) 75 mg PO DAILY [facility] Last Admin: 12/21/19 09:53 Dose: 75 mg Diltiazem HCl (Cardizem -) 60 mg PO TID [facility] Last Admin: 12/21/19 13:05 Dose: 60 mg Cefazolin Sodium 1 gm/ (Dextrose) 50 mls @ 100 mls/hr IVPB DAILY [facility] Insulin Aspart (Novolog Vial Sliding Scale -) 1 vial SQ ACHS [facility]; Protocol Last Admin: 12/21/19 12:30 Dose: Not Given Lisinopril (Prinivil) 5 mg PO DAILY [facility] Last Admin: 12/21/19 09:54 Dose: 5 mg Oxycodone HCl (Roxicodone -) 5 mg PO Q6H PRN PRN Reason: PAIN LEVEL 1-5 Last Admin: 12/19/19 21:41 Dose: 5 mg Pantoprazole Sodium (Protonix -) 40 mg PO DAILY [facility] Last Admin: 12/21/19 09:53 Dose: 40 mg Warfarin Sodium (Coumadin -) 7.5 mg PO DAILY@1800 [facility] Last Admin: 12/20/19 17:44 Dose: 7.5 mg - Objective Vital Signs: Vital Signs Temperature 97.6 F 12/21/19 10:00 Pulse Rate 114 H 12/21/19 10:00 Respiratory Rate 12/21/19 10:00 Blood Pressure 134/89 12/21/19 10:00 O2 Sat by Pulse Oximetry (%) 98 12/21/19 10:00 Constitutional: Yes: Calm Eyes: Yes: WNL Cardiovascular: Yes: Pulse Irregular, Murmur, S1 (varies in intensity), S2 ( split) Respiratory: Yes: WNL Gastrointestinal: Yes: Soft ...Rectal Exam: Yes: Deferred Genitourinary: No: Anuria Breast(s): Yes: WNL Musculoskeletal: Yes: Muscle Weakness Extremities: Yes: Cool Edema: No Peripheral Pulses WNL: No Peripheral Pulses: Left Doralis Pedis: 1+, Right Dorsalis Pedis: 1+ Wound/Incision: Yes: Dressing Dry and Intact (no dischrarge; no erythema (left upper axillary surgery for abscess I and D)) Neurological: Yes: Alert, Oriented, Weakness ...Motor Strength: RLE (1+ Strength and ROM) Psychiatric: Yes: Alert, Oriented Labs: CBC, BMP 12/20/19 06:55 12/21/19 05:05 INR, PTT INR 1.09 (0.83-1.09) 12/21/19 05:05 Abnormal Lab Results 12/21/19 05:05 BUN 18.5 H Creatinine 5.5 H Random Glucose 113 H Calcium 8.0 L Total Bilirubin 1.6 H ALT 12 L Alkaline Phosphatase 139 H Albumin 1.7 L - ....Imaging EKG: Image Reviewed (AF; PVCs) Problem List - Problems (1) New onset atrial fibrillation Assessment/Plan: Telemetry: AF; controlled VR. Plan: On carvedilol 25 mg bid. On diltiazem (decreased to 30 mg q6h). On lisinopril. Restarted warfarin; start IV argatroban (cannot use heparin: pork allergy) until INR 2-3. Stop clopidogrel (no ischemia on 2018 stress MIBI). Maintain electrolytes WNL. Addendum: Discussed pt with Dr.s Husain and Willis. Pt's borderline platelets make using argatroban prolematic. Will discontinue it (and warfarin) and start apixaban 5 mg bid. Code(s): I48.91 - UNSPECIFIED ATRIAL FIBRILLATION (2) Amputated toe of right foot Assessment/Plan: PAD. Will need f/u vascular workup, which may be done as outpatient. Code(s): S98.131A - COMPLETE TRAUMATIC AMPUTATION OF ONE RIGHT LESSER TOE, INIT (3) Dialysis patient Assessment/Plan: hemodialysis 3x/wk per restorative rehab aide. Code(s): Z99.2 - DEPENDENCE ON RENAL DIALYSIS (4) HTN (hypertension) Code(s): I10 - ESSENTIAL (PRIMARY) HYPERTENSION (5) Sepsis Code(s): A41.9 - SEPSIS, UNSPECIFIED ORGANISM Qualifiers: Sepsis type: sepsis due to unspecified organism Qualified Code(s): A41.9 - Sepsis, unspecified organism (6) Type 2 diabetes mellitus with foot ulcer Code(s): E11.621 - TYPE 2 DIABETES MELLITUS WITH FOOT ULCER; L97.509 - NON- PRESSURE CHRONIC ULCER OTH PRT UNSP FOOT W UNSP SEVERITY (7) Elevated troponin I measurement Assessment/Plan: TNI 0.02-->0.37-->0.32; CK became elevated, but low CKMB relative index. EKG: AF; no significant STT abnormalities. ECHO: mildly decreased LVEF. Demand ischemia from multiple contributors, including AF with RVR, Systolic CHF , pain.fever. Communication with pt's market gardener: Hx coronary artery stent: ?2016; on ASA and clopidogrel. Stress MIBI 12/2017: no ischemia; possible inferior wall infarct; reduced LVEF. Will f/u as outpatient with his market gardener. Code(s): R74.8 - ABNORMAL LEVELS OF OTHER SERUM ENZYMES (8) Weakness Assessment/Plan: CT head: no acute pathology. Neurology w/u in progress: right femoral mononeuropathy; diabetic peripheral neuropathy. continue daily physical therapy. Code(s): R53.1 - WEAKNESS (9) [place] cardiac risk >20% in next 10 years Assessment/Plan: Hx coronary PCI ?2016; on ASA and clopidogrel. Pt had stress MIBI 12/26: no ischemia. Now with elevated TNI, atypical chest pain. f/u with pt's cardiologis (Dr. Odom). Code(s): Z91.89 - OTH PERSONAL RISK FACTORS, NOT ELSEWHERE CLASSIFIED (10) Systolic CHF Assessment/Plan: 12/2019 ECHO: mildly reduced LVEF (40-45%). (12/26 gated studies on stress MIBI: 33% LVEF). Started lisinopril. On beta blockers (changed to carvedilol). On diltiazem; dose reduced to 30 q 6h. F/u BUN/Cr, electrolytes (magnesium level ordered), daily weight, Is and Os. Code(s): I50.20 - UNSPECIFIED SYSTOLIC (CONGESTIVE) HEART FAILURE (11) Chest wall pain Assessment/Plan: Change acetaminophen to 650 mg q 6 hours x 4 doses (pt c/o pain at surgical site , but seldom asks for prn medication). Code(s): R07.89 - OTHER CHEST PAIN (12) Thoracic ascending aortic aneurysm Assessment/Plan: 3.9 cm; f/u q 3-6 months. F/u with vascular surgeon. On carvedilol (HR control of AF; reduced LVEF; will decrease shear stress). Code(s): I71.2 - THORACIC AORTIC ANEURYSM, WITHOUT RUPTURE (13) Obesity Assessment/Plan: Pt has a goal of lowering weight to 200 lbs (was once 400 lbs). Code(s): E66.9 - OBESITY, UNSPECIFIED
[2019-12-21] MEDS ORDERED: ARGATROBAN - 250,000 MCG in SODIUM CHLORIDE 247.5 ML IVPB SCH (14:45)
[2019-12-21] MEDS: ACETAMINOPHEN 325 MG TABLET (FP) PO SCH ×2 (15:38→20:37)
[2019-12-21] MEDS: APIXABAN 5 MG TABLET PO SCH (17:41)
[2019-12-21] MEDS: dilTIAZem HCL 30 MG TABLET (FP) PO SCH (17:41)
[2019-12-21] MEDS: ATORVASTATIN CA 40 MG TABLET (FP) PO SCH (22:11)
--- NOTE | 2019-12-21 22:44 | PN ---
Progress Note, Physician History of Present Illness: No new complaints - Current Medication List Current Medications: Active Medications Acetaminophen (Tylenol -) 650 mg PO Q6H [facility] Stop: 12/22/19 08:31 Last Admin: 12/21/19 20:37 Dose: 650 mg Acetaminophen (Tylenol -) 650 mg PO Q6H PRN PRN Reason: FEVER Apixaban (Eliquis -) 5 mg PO BID [facility] Last Admin: 12/21/19 17:41 Dose: 5 mg Atorvastatin Calcium (Lipitor -) 40 mg PO HS [facility] Last Admin: 12/21/19 22:11 Dose: 40 mg Carvedilol (Coreg -) 25 mg PO BID [facility] Last Admin: 12/21/19 22:11 Dose: 25 mg Cinacalcet (Sensipar -) 60 mg PO DAILY [facility] Last Admin: 12/21/19 09:54 Dose: 60 mg Diltiazem HCl (Cardizem -) 30 mg PO Q6HPO [facility] Last Admin: 12/21/19 17:41 Dose: 30 mg Cefazolin Sodium 1 gm/ (Dextrose) 50 mls @ 100 mls/hr IVPB DAILY [facility] Insulin Aspart (Novolog Vial Sliding Scale -) 1 vial SQ ACHS [facility]; Protocol Last Admin: 12/21/19 22:12 Dose: 2 units Lisinopril (Prinivil) 5 mg PO DAILY [facility] Last Admin: 12/21/19 09:54 Dose: 5 mg Oxycodone HCl (Roxicodone -) 5 mg PO Q6H PRN PRN Reason: PAIN LEVEL 1-5 Last Admin: 12/19/19 21:41 Dose: 5 mg Pantoprazole Sodium (Protonix -) 40 mg PO DAILY [facility] Last Admin: 12/21/19 09:53 Dose: 40 mg - Objective Vital Signs: Vital Signs Temperature 97.9 F 12/21/19 20:51 Pulse Rate 81 12/21/19 20:51 Respiratory Rate 20 12/21/19 20:51 Blood Pressure 146/44 L 12/21/19 20:51 O2 Sat by Pulse Oximetry (%) 98 12/21/19 10:00 Neck: Yes: WNL, Supple Cardiovascular: Yes: WNL, Regular Rate and Rhythm Respiratory: Yes: WNL, Regular, CTA Bilaterally Gastrointestinal: Yes: WNL, Normal Bowel Sounds, Soft, Abdomen, Obese Labs: CBC, BMP 02/12/20 06:55 12/21/19 05:05 INR, PTT INR 1.09 (0.83-1.09) 12/21/19 05:05 Problem List - Problems (1) Abscess Assessment/Plan: CT scan chest showed Lt upper 1/3 pectoralis muscle swelling w/ foci air/gas and ?pulmonary wedge shaped ? infarct S/P I&D of lt ant chest wall Follow cultures Cont IV antibxs Code(s): L02.91 - CUTANEOUS ABSCESS, UNSPECIFIED (2) Sepsis Assessment/Plan: Due to staph aureus bacteremia Repeat BC remain negative Cont IV naficillin/zosyn w/ dialysis Code(s): A41.9 - SEPSIS, UNSPECIFIED ORGANISM Qualifiers: Sepsis type: sepsis due to unspecified organism Qualified Code(s): A41.9 - Sepsis, unspecified organism (3) Weakness Assessment/Plan: Ct scan head was unremarkable Neuro consult noted ?femoral neuropathy Code(s): R53.1 - WEAKNESS (4) ESRD (end stage renal disease) Assessment/Plan: Pt on dialysis As per renal Code(s): N18.6 - END STAGE RENAL DISEASE (5) New onset atrial fibrillation Assessment/Plan: ?Due to sepsis/fever/Pt is allergic to pork therefore cannot use heparin Also cannot use new AC's meds due to ESRD Restart coumadin Cont metoprolol/cardizem Code(s): I48.91 - UNSPECIFIED ATRIAL FIBRILLATION (6) HTN (hypertension) Code(s): I10 - ESSENTIAL (PRIMARY) HYPERTENSION (7) Diabetes Assessment/Plan: Cont sliding scale w/ coverage Code(s): E11.9 - TYPE 2 DIABETES MELLITUS WITHOUT COMPLICATIONS Qualifiers: Diabetes mellitus termite treater helper insulin use: unspecified detention insulin use status Diabetes mellitus complication status: with circulatory complication (8) Obesity Code(s): E66.9 - OBESITY, UNSPECIFIED
[2019-12-22] MEDS: dilTIAZem HCL 30 MG TABLET (FP) PO SCH ×5 (00:28→23:08)
[2019-12-22] MEDS: ACETAMINOPHEN 325 MG TABLET (FP) PO SCH ×2 (02:40→09:37)
[2019-12-22 03:31] LABS: MAGNESIUM 2.2 mg/dL (1.8-2.4)
[2019-12-22] MEDS: ACETAMINOPHEN 325 MG TABLET (FP) PO PRN ×2 (05:38→19:40)
--- NOTE | 2019-12-22 06:13 | PN ---
Progress Note (short form) - Note Progress Note: PAtient seen and examined LEft infraclavicular abscess drainage Denies any complaints AFVSS Cor: RSR, No murmurs, No gallops Lungs: Clear to P&A Abd: Soft, Normal bowel sounds, No organomegaly Ext:No significant edema Labs/Meds reviewed A/P 64yM w PMHx ESRD on Hd (MWF), obesity, nonsustained/parxysmal SVT, HTN, IDDM, ESBL osteomyelitis, PVD presenting w 1d fever, tachycardia, body aches and 1mo diarrhea. New onset afib/.RVR 1. Fever / S. aureus bacteremia 2. Hyperkalemia 3. Tachycardia/Afib with RVR 4. ESRD on HD 5. DM 6. Hypertension 7. Rt. femoral mononeuropathy---being worked up 8. Jehovahs witness Infection of left pectoralis major --on antibiotcs per ID and s/p debridement x 2 --last on 12/20/19 Afib/elevated INR Coumadin was hold s/p vit. K 10mg Patient refusing any blood products, even if he were to be in a life threatening situation and was facing imminent . h/o pork intolerance. No allergic symptoms Received heparin at HD Anticoagulation for afib --per cardiology and renal teams Anemia -- monitor JEhovahs witness Dose procrit if necessary
[2019-12-22] MEDS: INSULIN SLIDING SCALE (NOVOLOG) 1 VIAL SQ SCH ×4 (06:14→21:51)
[2019-12-22] MEDS ORDERED: INSULIN (NOVOLOG) ASPART 100 UNITS/ML 10ML VIAL ONE (06:16)
[2019-12-22] MEDS ORDERED: PT OWN MED DRAWER 7, Y5N ONE ×2 (08:06→09:23)
[2019-12-22] MEDS ORDERED: ceFAZolin SODIUM 1 GM VIAL ONE (09:23)
[2019-12-22] MEDS ORDERED: DEXTROSE 5%-WATER - 50 ML IVPB ONE (09:23)
[2019-12-22] MEDS: LISINOPRIL 5 MG TABLET (FP) PO SCH (09:37)
[2019-12-22] MEDS: APIXABAN 5 MG TABLET PO SCH ×2 (09:37→21:51)
[2019-12-22] MEDS: CEFAZOLIN 1 GM in DEXTROSE 5%-WATER - 50 ML IVPB SCH (09:37)
[2019-12-22] MEDS: CARVEDILOL 25 MG TABLET (FP) PO SCH ×2 (09:37→21:50)
[2019-12-22] MEDS: PANTOPRAZOLE 40 MG TABLET PO SCH (09:37)
[2019-12-22] MEDS: CINACALCET HCL 30 MG TAB (FP) PO SCH (09:38)
--- NOTE | 2019-12-22 11:20 | PN ---
Progress Note, Physician History of Present Illness: PULMONARY ALERT,NO RESP DISTRESS,+ C/O LOWER EXT PAIN, AND LEFT CHEST WALL SECONDARY TO ABSCESS - Current Medication List Current Medications: Active Medications Acetaminophen (Tylenol -) 650 mg PO Q6H PRN PRN Reason: FEVER Last Admin: 12/22/19 05:38 Dose: 650 mg Apixaban (Eliquis -) 5 mg PO BID [facility] Last Admin: 12/22/19 09:37 Dose: 5 mg Atorvastatin Calcium (Lipitor -) 40 mg PO HS [facility] Last Admin: 12/21/19 22:11 Dose: 40 mg Carvedilol (Coreg -) 25 mg PO BID [facility] Last Admin: 12/22/19 09:37 Dose: 25 mg Cinacalcet (Sensipar -) 60 mg PO DAILY [facility] Last Admin: 12/22/19 09:38 Dose: 60 mg Diltiazem HCl (Cardizem -) 30 mg PO Q6HPO [facility] Last Admin: 12/22/19 05:41 Dose: 30 mg Cefazolin Sodium 1 gm/ (Dextrose) 50 mls @ 100 mls/hr IVPB DAILY [facility] Last Admin: 12/22/19 09:37 Dose: 100 mls/hr Insulin Aspart (Novolog Vial Sliding Scale -) 1 vial SQ ACHS [facility]; Protocol Last Admin: 12/22/19 06:14 Dose: 2 units Lisinopril (Prinivil) 5 mg PO DAILY [facility] Last Admin: 12/22/19 09:37 Dose: 5 mg Pantoprazole Sodium (Protonix -) 40 mg PO DAILY [facility] Last Admin: 12/22/19 09:37 Dose: 40 mg - Objective Vital Signs: Vital Signs Temperature 97.7 F 12/22/19 05:34 Pulse Rate 105 H 12/22/19 05:34 Respiratory Rate 20 12/22/19 05:34 Blood Pressure 124/82 12/22/19 05:34 O2 Sat by Pulse Oximetry (%) 98 12/21/19 22:00 Constitutional: Yes: Well Nourished, Calm Eyes: Yes: WNL HENT: Yes: WNL Neck: Yes: WNL Cardiovascular: Yes: Pulse Irregular, S1, S2 Respiratory: Yes: CTA Bilaterally Gastrointestinal: Yes: Normal Bowel Sounds, Soft, Abdomen, Obese Extremities: Yes: WNL Edema: Yes Edema: LLE: Trace, RLE: Trace Labs: CBC, BMP 12/20/19 06:55 12/21/19 05:05 INR, PTT INR 1.09 (0.83-1.09) 12/21/19 05:05 Assessment/Plan Problem List - Problems (1) Abnormal CT of the chest Code(s): R93.89 - ABNORMAL FINDINGS ON DX IMAGING OF OTH BODY STRUCTURES (2) Abscess Code(s): L02.91 - CUTANEOUS ABSCESS, UNSPECIFIED (3) Chest wall pain Code(s): R07.89 - OTHER CHEST PAIN (4) ESRD (end stage renal disease) Code(s): N18.6 - END STAGE RENAL DISEASE (5) New onset atrial fibrillation Code(s): I48.91 - UNSPECIFIED ATRIAL FIBRILLATION (6) Obesity Code(s): E66.9 - OBESITY, UNSPECIFIED (7) Weakness Code(s): R53.1 - WEAKNESS (8) Diabetes Code(s): E11.9 - TYPE 2 DIABETES MELLITUS WITHOUT COMPLICATIONS Qualifiers: Diabetes mellitus ocean transportation intermediary insulin use: unspecified usp insulin use status Diabetes mellitus complication status: with circulatory complication (9) Dialysis patient Code(s): Z99.2 - DEPENDENCE ON RENAL DIALYSIS (10) HLD (hyperlipidemia) Code(s): E78.5 - HYPERLIPIDEMIA, UNSPECIFIED (11) HTN (hypertension) Code(s): I10 - ESSENTIAL (PRIMARY) HYPERTENSION (12) Abscess of chest wall Code(s): L02.213 - CUTANEOUS ABSCESS OF CHEST WALL 13. STAPH BACTEREMIA 14.A-FIB Assessment/Plan LEFT CHEST WALL ABSCESS S/P DEBRIDEMENT ABNORMALITIES ON LUNG CT APPEAR CHRONIC AND SUBPLEURAL WOULD REPEAT CT CHEST AN OUTPATIENT IN 2 MONTHS IF INCREASE IN SIZE WOULD REQUEST PET SCAN ABX PER ID AC DR ORTEZ
--- NOTE | 2019-12-22 11:31 | PN ---
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 Been having 3-5 episodes of diarrhea ongoing for past month. Had paroxysmal SVT in past in setting of infection, denies having a fib. Does not make urine. Denies cough, nasal congestion, chest pain, SOB, AB pain. - Current Medication List Current Medications: Active Medications Acetaminophen (Tylenol -) 650 mg PO Q6H PRN PRN Reason: FEVER Last Admin: 12/22/19 05:38 Dose: 650 mg Apixaban (Eliquis -) 5 mg PO BID [facility] Last Admin: 12/22/19 09:37 Dose: 5 mg Atorvastatin Calcium (Lipitor -) 40 mg PO HS [facility] Last Admin: 12/21/19 22:11 Dose: 40 mg Carvedilol (Coreg -) 25 mg PO BID [facility] Last Admin: 12/22/19 09:37 Dose: 25 mg Cinacalcet (Sensipar -) 60 mg PO DAILY [facility] Last Admin: 12/22/19 09:38 Dose: 60 mg Diltiazem HCl (Cardizem -) 30 mg PO Q6HPO [facility] Last Admin: 12/22/19 05:41 Dose: 30 mg Cefazolin Sodium 1 gm/ (Dextrose) 50 mls @ 100 mls/hr IVPB DAILY [facility] Last Admin: 12/22/19 09:37 Dose: 100 mls/hr Insulin Aspart (Novolog Vial Sliding Scale -) 1 vial SQ ACHS [facility]; Protocol Last Admin: 12/22/19 06:14 Dose: 2 units Lisinopril (Prinivil) 5 mg PO DAILY [facility] Last Admin: 12/22/19 09:37 Dose: 5 mg Pantoprazole Sodium (Protonix -) 40 mg PO DAILY [facility] Last Admin: 12/22/19 09:37 Dose: 40 mg - Objective Vital Signs: Vital Signs Temperature 98.4 F 12/22/19 10:00 Pulse Rate 102 H 12/22/19 10:00 Respiratory Rate 22 H 12/22/19 10:00 Blood Pressure 148/76 12/22/19 10:00 O2 Sat by Pulse Oximetry (%) 98 12/21/19 22:00 Constitutional: Yes: Well Nourished Eyes: Yes: WNL, Conjunctiva Clear, EOM Intact HENT: Yes: WNL, Atraumatic, Normocephalic Neck: Yes: WNL, Supple, Trachea Midline Cardiovascular: Yes: Pulse Irregular, S1, S2 Respiratory: Yes: WNL, Regular, CTA Bilaterally Gastrointestinal: Yes: WNL, Normal Bowel Sounds Genitourinary: Yes: WNL Musculoskeletal: Yes: WNL Extremities: Yes: WNL Edema: No Integumentary: Yes: WNL Neurological: Yes: WNL, Alert, Oriented ...Motor Strength: WNL Psychiatric: Yes: WNL Labs: CBC, BMP 12/20/19 06:55 12/21/19 05:05 INR, PTT INR 1.09 (0.83-1.09) 12/21/19 05:05 Assessment/Plan - Problems (1) New onset atrial fibrillation Assessment/Plan: Telemetry: AF; controlled VR. Plan: On carvedilol 25 mg bid. On diltiazem (decreased to 30 mg q6h). On lisinopril. Restarted warfarin; start IV argatroban (cannot use heparin: pork allergy) until INR 2-3. Stop clopidogrel (no ischemia on 2018 stress MIBI). Maintain electrolytes WNL. Addendum: Discussed pt with Dr.s Husain and Willis. Pt's borderline platelets make using argatroban prolematic. Will discontinue it (and warfarin) and start apixaban 5 mg bid. Code(s): I48.91 - UNSPECIFIED ATRIAL FIBRILLATION (2) Amputated toe of right foot Assessment/Plan: PAD. Will need f/u vascular workup, which may be done as outpatient. Code(s): S98.131A - COMPLETE TRAUMATIC AMPUTATION OF ONE RIGHT LESSER TOE, INIT (3) Dialysis patient Assessment/Plan: hemodialysis 3x/wk per private banker. Code(s): Z99.2 - DEPENDENCE ON RENAL DIALYSIS (4) HTN (hypertension) Code(s): I10 - ESSENTIAL (PRIMARY) HYPERTENSION (5) Sepsis Code(s): A41.9 - SEPSIS, UNSPECIFIED ORGANISM Qualifiers: Sepsis type: sepsis due to unspecified organism Qualified Code(s): A41.9 - Sepsis, unspecified organism (6) Type 2 diabetes mellitus with foot ulcer Code(s): E11.621 - TYPE 2 DIABETES MELLITUS WITH FOOT ULCER; L97.509 - NON- PRESSURE CHRONIC ULCER OTH PRT UNSP FOOT W UNSP SEVERITY (7) Elevated troponin I measurement Assessment/Plan: TNI 0.02-->0.37-->0.32; CK became elevated, but low CKMB relative index. EKG: AF; no significant STT abnormalities. ECHO: mildly decreased LVEF. Demand ischemia from multiple contributors, including AF with RVR, Systolic CHF , pain.fever. Communication with pt's silk hanger: Hx coronary artery stent: ?2016; on ASA and clopidogrel. Stress MIBI 12/2017: no ischemia; possible inferior wall infarct; reduced LVEF. Will f/u as outpatient with his silk hanger. Code(s): R74.8 - ABNORMAL LEVELS OF OTHER SERUM ENZYMES (8) Weakness Assessment/Plan: CT head: no acute pathology. Neurology w/u in progress: right femoral mononeuropathy; diabetic peripheral neuropathy. continue daily physical therapy. Code(s): R53.1 - WEAKNESS (9) [place] cardiac risk >20% in next 10 years Assessment/Plan: Hx coronary PCI ?2015; on ASA and clopidogrel. Pt had stress MIBI 12/26: no ischemia. Now with elevated TNI, atypical chest pain. f/u with pt's cardiologis (Dr. Odom). Code(s): Z91.89 - OTH PERSONAL RISK FACTORS, NOT ELSEWHERE CLASSIFIED (10) Systolic CHF Assessment/Plan: 12/2019 ECHO: mildly reduced LVEF (40-45%). (12/26 gated studies on stress MIBI: 33% LVEF). Started lisinopril. On beta blockers (changed to carvedilol). On diltiazem; dose reduced to 30 q 6h. F/u BUN/Cr, electrolytes (magnesium level ordered), daily weight, Is and Os. Code(s): I50.20 - UNSPECIFIED SYSTOLIC (CONGESTIVE) HEART FAILURE (11) Chest wall pain Assessment/Plan: Change acetaminophen to 650 mg q 6 hours x 4 doses (pt c/o pain at surgical site , but seldom asks for prn medication). Code(s): R07.89 - OTHER CHEST PAIN (12) Thoracic ascending aortic aneurysm Assessment/Plan: 3.9 cm; f/u q 3-6 months. F/u with vascular surgeon. On carvedilol (HR control of AF; reduced LVEF; will decrease shear stress). Code(s): I71.2 - THORACIC AORTIC ANEURYSM, WITHOUT RUPTURE (13) Obesity Assessment/Plan: Pt has a goal of lowering weight to 200 lbs (was once 400 lbs). Code(s): E66.9 - OBESITY, UNSPECIFIED S/P I&D of lt ant chest wall NSVT last night cont telemetry electrolytes/mg pending
[2019-12-22] MEDS ORDERED: SODIUM CHLORIDE 250 ML IV PRN ×3 (11:38→15:43)
[2019-12-22 12:10] LABS: HEMATOCRIT 30.5 % (35.4-49); HEMOGLOBIN 10.1 GM/dL (11.7-16.9); MCH 28.8 pg (25.7-33.7); MEAN CELL VOLUME 87.5 fl (80-96); MEAN PLT VOLUME 9.7 fl (7.5-11.1); PLATELET COUNT 211 K/MM3 (134-434); RBC 3.49 M/mm3 (4.00-5.60); RDW 16.3 % (11.9-15.9); WHITE BLOOD COUNT 10.1 K/mm3 (4.0-10.0)
[2019-12-22 12:26] LABS: INR 1.18 (0.83-1.09); PROTHROMBIN TIME (PATIENT) 13.9 SEC (9.7-13.0)
[2019-12-22 12:29] LABS: ACTIVATED PTT 34.9 SECONDS (25.2-36.5)
[2019-12-22 13:35] LABS: BLOOD UREA NITROGEN 33.1 mg/dL (7-18)
[2019-12-22 13:36] LABS: MAGNESIUM 2.2 mg/dL (1.8-2.4)
[2019-12-22 13:41] LABS: CREATININE 7.8 mg/dL (0.55-1.3)
--- NOTE | 2019-12-22 14:10 | PN ---
Progress Note (short form) - Note Progress Note: Renal follow up for ESRD on HD Seen and examined at the bedside awake and alert no acute complaints no fever, chills, sob, cp, abd pain, N/V/D, CAAL or confusion awaiting dialysis today Vital Signs Temperature 98.4 F 12/22/19 10:00 Pulse Rate 102 H 12/22/19 10:00 Respiratory Rate 22 H 12/22/19 10:00 Blood Pressure 148/76 12/22/19 10:00 O2 Sat by Pulse Oximetry (%) 98 12/21/19 22:00 Intake & Output 12/19/19 12/20/19 12/21/19 12/22/19 23:59 23:59 23:59 23:59 Intake Total 1340 1230 590 130 Output Total 0 0 Balance 1340 1230 590 130 NAD neck supple dressing over left chest wall RRR Dec BS at lung bases, no rales dressing on chest wall soft NT/ND, Obese, no rebound or guarding no LE edema, cyanosis no focal neurologic deficits CBC, BMP 12/22/19 11:33 12/22/19 11:33 Current Medications Acetaminophen (Tylenol -) 650 mg PO Q6H PRN PRN Reason: FEVER Last Admin: 12/22/19 05:38 Dose: 650 mg Apixaban (Eliquis -) 5 mg PO BID [facility] Last Admin: 12/22/19 09:37 Dose: 5 mg Atorvastatin Calcium (Lipitor -) 40 mg PO HS [facility] Last Admin: 12/21/19 22:11 Dose: 40 mg Carvedilol (Coreg -) 25 mg PO BID [facility] Last Admin: 12/22/19 09:37 Dose: 25 mg Cinacalcet (Sensipar -) 60 mg PO DAILY [facility] Last Admin: 12/22/19 09:38 Dose: 60 mg Diltiazem HCl (Cardizem -) 30 mg PO Q6HPO [facility] Last Admin: 12/22/19 13:20 Dose: 30 mg Epoetin Lenny (Procrit -) 10,000 unit SQ ONCE ONE Stop: 12/22/19 11:39 Cefazolin Sodium 1 gm/ (Dextrose) 50 mls @ 100 mls/hr IVPB DAILY [facility] Last Admin: 12/22/19 09:37 Dose: 100 mls/hr Sodium Chloride (Normal Saline -) 250 mls @ 3,000 mls/hr IV PRN PRN PRN Reason: Hypotension during Dialysis Stop: 12/23/19 11:39 Insulin Aspart (Novolog Vial Sliding Scale -) 1 vial SQ ACHS [facility]; Protocol Last Admin: 12/22/19 13:23 Dose: 2 units Lisinopril (Prinivil) 5 mg PO DAILY [facility] Last Admin: 12/22/19 09:37 Dose: 5 mg Pantoprazole Sodium (Protonix -) 40 mg PO DAILY [facility] Last Admin: 12/22/19 09:37 Dose: 40 mg 64 year old gentleman with history of ESRD on HD (MWF), DM, PVD Osteomylitis, hx of SVT/PSVT who presented from the dialysis center with fever and tachycardia. 1. Fever (Influenza negative, CXR w/o infiltrates) 2. Hyperkalemia 3. Tachycardia/Afib with RVR 4. ESRD on HD 5. DM 6. Hypertension for dialysis today with UF as tolerated Renal diet, 1.2L fluid restriction started on Cefazolin as per ID, on dischage can be on Cefazolin 2g/2g/3g with dialysis for total of 2 additional weeks Surgical follow up for abcess. Dressing changes. Most recent blood cultures w/o growth pain control as needed continue renvela TID with meals for hyperphosphatemia Thank you Meet Pedro DO
--- NOTE | 2019-12-22 14:39 | PN ---
Progress Note, Physician History of Present Illness: stable no new issues being dialysed - Current Medication List Current Medications: Active Medications Acetaminophen (Tylenol -) 650 mg PO Q6H PRN PRN Reason: FEVER Last Admin: 12/22/19 05:38 Dose: 650 mg Apixaban (Eliquis -) 5 mg PO BID [facility] Last Admin: 12/22/19 09:37 Dose: 5 mg Atorvastatin Calcium (Lipitor -) 40 mg PO HS [facility] Last Admin: 12/21/19 22:11 Dose: 40 mg Carvedilol (Coreg -) 25 mg PO BID [facility] Last Admin: 12/22/19 09:37 Dose: 25 mg Cinacalcet (Sensipar -) 60 mg PO DAILY [facility] Last Admin: 12/22/19 09:38 Dose: 60 mg Diltiazem HCl (Cardizem -) 30 mg PO Q6HPO [facility] Last Admin: 12/22/19 13:20 Dose: 30 mg Epoetin Lenny (Procrit -) 10,000 unit SQ ONCE ONE Stop: 12/22/19 11:39 Cefazolin Sodium 1 gm/ (Dextrose) 50 mls @ 100 mls/hr IVPB DAILY [facility] Last Admin: 12/22/19 09:37 Dose: 100 mls/hr Sodium Chloride (Normal Saline -) 250 mls @ 3,000 mls/hr IV PRN PRN PRN Reason: Hypotension during Dialysis Stop: 12/23/19 14:11 Insulin Aspart (Novolog Vial Sliding Scale -) 1 vial SQ ACHS [facility]; Protocol Last Admin: 12/22/19 13:23 Dose: 2 units Lisinopril (Prinivil) 5 mg PO DAILY [facility] Last Admin: 12/22/19 09:37 Dose: 5 mg Pantoprazole Sodium (Protonix -) 40 mg PO DAILY [facility] Last Admin: 12/22/19 09:37 Dose: 40 mg Paricalcitol (Zemplar -) 2 mcg IVPUSH ONCE ONE Stop: 12/22/19 14:12 - Objective Vital Signs: Vital Signs Temperature 98.4 F 12/22/19 10:00 Pulse Rate 102 H 12/22/19 10:00 Respiratory Rate 22 H 12/22/19 10:00 Blood Pressure 148/76 12/22/19 10:00 O2 Sat by Pulse Oximetry (%) 98 12/21/19 22:00 Constitutional: Yes: No Distress, Calm Cardiovascular: Yes: S1, S2 Respiratory: Yes: Regular Gastrointestinal: Yes: Normal Bowel Sounds, Soft Musculoskeletal: Yes: WNL Extremities: Yes: WNL Neurological: Yes: Alert, Oriented Psychiatric: Yes: Alert, Oriented Labs: CBC, BMP 12/22/19 11:33 12/22/19 11:33 INR, PTT INR 1.18 (0.83-1.09) H 12/22/19 11:33 Assessment/Plan Problem List - Problems (1) Atrial fibrillation with rapid ventricular response Code(s): I48.91 - UNSPECIFIED ATRIAL FIBRILLATION (2) ESRD (end stage renal disease) Code(s): N18.6 - END STAGE RENAL DISEASE (3) Hyperkalemia Code(s): E87.5 - HYPERKALEMIA (4) New onset atrial fibrillation Code(s): I48.91 - UNSPECIFIED ATRIAL FIBRILLATION (5) Diabetes Code(s): E11.9 - TYPE 2 DIABETES MELLITUS WITHOUT COMPLICATIONS Qualifiers: Diabetes mellitus care home insulin use: unspecified moth exterminator insulin use 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 male with PMH of ESRD on HD, obesity, DM, CHF, PVD, OM s/p Rt 5th toe amp, SVT/PSVT presented to the ER with fever that began during HD the day before associated with generalized weakness and body aches Sepsis Bacteremia Fever Leukocytosis New Onset AFIB ESRD on HD DM PVD Obesity CHF Hx of OM/toe plan continue abx wound care
[2019-12-22] MEDS ORDERED: PARICALCITOL 5 MCG/ML VIAL IVPUSH ONE (15:45)
[2019-12-22] MEDS ORDERED: EPOETIN ALFA-EPBX 10,000 UNIT/ML VIAL SQ ONE (16:00)
[2019-12-22] MEDS: ATORVASTATIN CA 40 MG TABLET (FP) PO SCH (21:50)
--- NOTE | 2019-12-22 22:32 | PN ---
Progress Note, Physician - Current Medication List Current Medications: Active Medications Acetaminophen (Tylenol -) 650 mg PO Q6H PRN PRN Reason: FEVER Last Admin: 12/22/19 19:40 Dose: 650 mg Apixaban (Eliquis -) 5 mg PO BID [facility] Last Admin: 12/22/19 21:51 Dose: 5 mg Atorvastatin Calcium (Lipitor -) 40 mg PO HS [facility] Last Admin: 12/22/19 21:50 Dose: 40 mg Carvedilol (Coreg -) 25 mg PO BID [facility] Last Admin: 12/22/19 21:50 Dose: 25 mg Cinacalcet (Sensipar -) 60 mg PO DAILY [facility] Last Admin: 12/22/19 09:38 Dose: 60 mg Diltiazem HCl (Cardizem -) 30 mg PO Q6HPO [facility] Last Admin: 12/22/19 19:36 Dose: 30 mg Cefazolin Sodium 1 gm/ (Dextrose) 50 mls @ 100 mls/hr IVPB DAILY [facility] Last Admin: 12/22/19 09:37 Dose: 100 mls/hr Sodium Chloride (Normal Saline -) 250 mls @ 3,000 mls/hr IV PRN PRN PRN Reason: Hypotension during Dialysis Stop: 12/23/19 15:42 Insulin Aspart (Novolog Vial Sliding Scale -) 1 vial SQ ACHS [facility]; Protocol Last Admin: 12/22/19 21:51 Dose: 2 units Lisinopril (Prinivil) 5 mg PO DAILY [facility] Last Admin: 12/22/19 09:37 Dose: 5 mg Pantoprazole Sodium (Protonix -) 40 mg PO DAILY [facility] Last Admin: 12/22/19 09:37 Dose: 40 mg - Objective Vital Signs: Vital Signs Temperature 98.4 F 12/22/19 15:20 Pulse Rate 88 12/22/19 19:57 Respiratory Rate 18 12/22/19 19:57 Blood Pressure 138/70 12/22/19 19:57 O2 Sat by Pulse Oximetry (%) 99 12/22/19 10:00 Labs: CBC, BMP 12/22/19 11:33 12/22/19 11:33 INR, PTT INR 1.18 (0.83-1.09) H 12/22/19 11:33 Problem List - Problems (1) Abscess Code(s): L02.91 - CUTANEOUS ABSCESS, UNSPECIFIED (2) Sepsis Code(s): A41.9 - SEPSIS, UNSPECIFIED ORGANISM Qualifiers: Sepsis type: sepsis due to unspecified organism Qualified Code(s): A41.9 - Sepsis, unspecified organism (3) Weakness Code(s): R53.1 - WEAKNESS (4) ESRD (end stage renal disease) Code(s): N18.6 - END STAGE RENAL DISEASE (5) New onset atrial fibrillation Code(s): I48.91 - UNSPECIFIED ATRIAL FIBRILLATION (6) HTN (hypertension) Code(s): I10 - ESSENTIAL (PRIMARY) HYPERTENSION (7) Diabetes Code(s): E11.9 - TYPE 2 DIABETES MELLITUS WITHOUT COMPLICATIONS Qualifiers: Diabetes mellitus technician terminal and repeater insulin use: unspecified technician terminal and repeater insulin use status Diabetes mellitus complication status: with circulatory complication (8) Obesity Code(s): E66.9 - OBESITY, UNSPECIFIED
[2019-12-23] MEDS: dilTIAZem HCL 30 MG TABLET (FP) PO SCH ×3 (06:49→17:30)
[2019-12-23] MEDS: INSULIN SLIDING SCALE (NOVOLOG) 1 VIAL SQ SCH ×4 (06:50→23:08)
[2019-12-23] MEDS ORDERED: DEXTROSE 5%-WATER - 50 ML IVPB ONE (11:00)
[2019-12-23] MEDS ORDERED: ceFAZolin SODIUM 1 GM VIAL ONE (11:00)
[2019-12-23] MEDS ORDERED: PT OWN MED DRAWER 7, Y5N ONE (11:00)
[2019-12-23] MEDS: LISINOPRIL 5 MG TABLET (FP) PO SCH (11:09)
[2019-12-23] MEDS: CARVEDILOL 25 MG TABLET (FP) PO SCH ×2 (11:09→23:07)
[2019-12-23] MEDS: PANTOPRAZOLE 40 MG TABLET PO SCH (11:09)
[2019-12-23] MEDS: CEFAZOLIN 1 GM in DEXTROSE 5%-WATER - 50 ML IVPB SCH (11:09)
[2019-12-23] MEDS: APIXABAN 5 MG TABLET PO SCH ×2 (11:09→23:07)
[2019-12-23] MEDS: CINACALCET HCL 30 MG TAB (FP) PO SCH (11:11)
[2019-12-23] MEDS: ACETAMINOPHEN 325 MG TABLET (FP) PO PRN (11:15)
[2019-12-23] MEDS ORDERED: INSULIN (NOVOLOG) ASPART 100 UNITS/ML 10ML VIAL ONE (11:54)
--- NOTE | 2019-12-23 12:34 | PN ---
Progress Note, Physician History of Present Illness: Pt is alert, without distress. Remains afebrile, without new complaints. - Current Medication List Current Medications: Active Medications Acetaminophen (Tylenol -) 650 mg PO Q6H PRN PRN Reason: FEVER Last Admin: 12/23/19 11:15 Dose: 650 mg Apixaban (Eliquis -) 5 mg PO BID [facility] Last Admin: 12/23/19 11:09 Dose: 5 mg Atorvastatin Calcium (Lipitor -) 40 mg PO HS [facility] Last Admin: 12/22/19 21:50 Dose: 40 mg Carvedilol (Coreg -) 25 mg PO BID [facility] Last Admin: 12/23/19 11:09 Dose: 25 mg Cinacalcet (Sensipar -) 60 mg PO DAILY [facility] Last Admin: 12/23/19 11:11 Dose: 60 mg Diltiazem HCl (Cardizem -) 30 mg PO Q6HPO [facility] Last Admin: 12/23/19 06:49 Dose: 30 mg Cefazolin Sodium 1 gm/ (Dextrose) 50 mls @ 100 mls/hr IVPB DAILY [facility] Last Admin: 12/23/19 11:09 Dose: 100 mls/hr Sodium Chloride (Normal Saline -) 250 mls @ 3,000 mls/hr IV PRN PRN PRN Reason: Hypotension during Dialysis Stop: 12/23/19 15:42 Insulin Aspart (Novolog Vial Sliding Scale -) 1 vial SQ ACHS [facility]; Protocol Last Admin: 12/23/19 12:10 Dose: 8 units Lisinopril (Prinivil) 5 mg PO DAILY [facility] Last Admin: 12/23/19 11:09 Dose: 5 mg Pantoprazole Sodium (Protonix -) 40 mg PO DAILY [facility] Last Admin: 12/23/19 11:09 Dose: 40 mg - Objective Vital Signs: Vital Signs Temperature 98.7 F 12/23/19 10:00 Pulse Rate 107 H 12/23/19 10:00 Respiratory Rate 12/23/19 10:00 Blood Pressure 138/96 12/23/19 10:00 O2 Sat by Pulse Oximetry (%) 96 12/22/19 22:00 Constitutional: Yes: No Distress, Calm Cardiovascular: Yes: Regular Rate and Rhythm Respiratory: Yes: Regular Gastrointestinal: Yes: Normal Bowel Sounds, Soft Extremities: Yes: Other (LUE AV fistula) Integumentary: Yes: WNL Wound/Incision: Yes: Dressing Dry and Intact Neurological: Yes: Alert, Oriented Labs: CBC, BMP 12/22/19 11:33 12/22/19 11:33 INR, PTT INR 1.18 (0.83-1.09) H 12/22/19 11:33 Microbiology 12/17/19 18:00 Abscess Gram Stain - Final 12/17/19 18:00 Abscess Wound Culture - Final NO GROWTH AFTER 48 HOURS INCUBATION 12/12/19 09:58 Blood - Peripheral Venous Blood Culture - Final NO GROWTH AFTER 5 DAYS INCUBATION 12/12/19 09:46 Blood - Peripheral Venous Blood Culture - Final NO GROWTH AFTER 5 DAYS INCUBATION 12/10/19 14:30 Blood - Pre-Dialysis Blood Culture - Final Staphylococcus Aureus 12/10/19 14:30 Blood - Pre-Dialysis Blood Culture - Final Staphylococcus Aureus 12/09/19 12:48 Blood - Peripheral Venous Blood Culture - Final Presumptive Mssa (Pbp2a Neg) 12/09/19 12:30 Blood - Peripheral Venous Blood Culture - Final Staphylococcus Aureus 12/08/19 11:15 Blood - Peripheral Venous Blood Culture - Final Staphylococcus Aureus 12/08/19 11:15 Blood - Peripheral Venous Blood Culture - Final Staphylococcus Aureus Problem List - Problems (1) Atrial fibrillation with rapid ventricular response Code(s): I48.91 - UNSPECIFIED ATRIAL FIBRILLATION (2) ESRD (end stage renal disease) Code(s): N18.6 - END STAGE RENAL DISEASE (3) Hyperkalemia Code(s): E87.5 - HYPERKALEMIA (4) New onset atrial fibrillation Code(s): I48.91 - UNSPECIFIED ATRIAL FIBRILLATION (5) Diabetes Code(s): E11.9 - TYPE 2 DIABETES MELLITUS WITHOUT COMPLICATIONS Qualifiers: Diabetes mellitus 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 use: unspecified 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 use status Diabetes mellitus complication status: with circulatory complication (6) Dialysis patient Code(s): Z99.2 - DEPENDENCE ON RENAL DIALYSIS (7) HLD (hyperlipidemia) Code(s): E78.5 - HYPERLIPIDEMIA, UNSPECIFIED (8) HTN (hypertension) Code(s): I10 - ESSENTIAL (PRIMARY) HYPERTENSION (9) Sepsis Code(s): A41.9 - SEPSIS, UNSPECIFIED ORGANISM Qualifiers: Sepsis type: sepsis due to unspecified organism Qualified Code(s): A41.9 - Sepsis, unspecified organism Assessment/Plan Sepsis Staph aureus bacteremia Lt chest wall abscess s/p I+D Fever Leukocytosis New Onset AFIB ESRD on HD DM PVD Obesity CHF Hx of OM/toe -- continue Cefazolin -- repeat Blood cultures neg 48hrs -- afebrile, stable -- wbc mildly elevated today, repeat cbc in a.m.
--- NOTE | 2019-12-23 13:02 | PN ---
Progress Note (short form) - Note Progress Note: Breathing feels better today. No acute events overnight. Intake & Output 12/20/19 12/21/19 12/22/19 12/23/19 23:59 23:59 23:59 23:59 Intake Total 1230 590 730 100 Output Total 0 3000 Balance 1230 590 -2270 100 Last Vital Signs Temp Pulse Resp BP Pulse Ox 98.7 F 107 H 20 138/96 97 12/23/19 10:00 12/23/19 10:00 12/23/19 10:00 12/23/19 10:00 12/23/19 10:00 Active Medications Acetaminophen (Tylenol -) 650 mg PO Q6H PRN PRN Reason: FEVER Last Admin: 12/23/19 11:15 Dose: 650 mg Apixaban (Eliquis -) 5 mg PO BID [facility] Last Admin: 12/23/19 11:09 Dose: 5 mg Atorvastatin Calcium (Lipitor -) 40 mg PO HS [facility] Last Admin: 12/22/19 21:50 Dose: 40 mg Carvedilol (Coreg -) 25 mg PO BID [facility] Last Admin: 12/23/19 11:09 Dose: 25 mg Cinacalcet (Sensipar -) 60 mg PO DAILY [facility] Last Admin: 12/23/19 11:11 Dose: 60 mg Diltiazem HCl (Cardizem -) 30 mg PO Q6HPO [facility] Last Admin: 12/23/19 12:34 Dose: 30 mg Cefazolin Sodium 1 gm/ (Dextrose) 50 mls @ 100 mls/hr IVPB DAILY [facility] Last Admin: 12/23/19 11:09 Dose: 100 mls/hr Sodium Chloride (Normal Saline -) 250 mls @ 3,000 mls/hr IV PRN PRN PRN Reason: Hypotension during Dialysis Stop: 12/23/19 15:42 Insulin Aspart (Novolog Vial Sliding Scale -) 1 vial SQ ACHS [facility]; Protocol Last Admin: 12/23/19 12:10 Dose: 8 units Lisinopril (Prinivil) 5 mg PO DAILY [facility] Last Admin: 12/23/19 11:09 Dose: 5 mg Pantoprazole Sodium (Protonix -) 40 mg PO DAILY [facility] Last Admin: 12/23/19 11:09 Dose: 40 mg Constitutional: Yes: Well Nourished, Calm Eyes: Yes: WNL HENT: Yes: WNL Neck: Yes: WNL Cardiovascular: Yes: Pulse Irregular, S1, S2 Respiratory: Yes: CTA Bilaterally Gastrointestinal: Yes: Normal Bowel Sounds, Soft, Abdomen, Obese Extremities: Yes: WNL Edema: Yes Edema: LLE: Trace, RLE: Trace Labs: Laboratory Results - last 24 hr 12/22/19 12/22/19 12/22/19 11:33 17:37 21:49 Sodium 139 Potassium 4.0 Chloride 98 Carbon Dioxide 30 Anion Gap 11 BUN 33.1 H Creatinine 7.8 H* Est GFR (CKD-EPI)AfAm 7.77 Est GFR (CKD-EPI)NonAf 6.70 POC Glucometer 162 178 Random Glucose 172 H Calcium 8.0 L Magnesium 2.2 12/23/19 12/23/19 06:12 12:08 Sodium Potassium Chloride Carbon Dioxide Anion Gap BUN Creatinine Est GFR (CKD-EPI)AfAm Est GFR (CKD-EPI)NonAf POC Glucometer 195 331 Random Glucose Calcium Magnesium Assessment/Plan Problem List - Problems (1) Abnormal CT of the chest Code(s): R93.89 - ABNORMAL FINDINGS ON DX IMAGING OF OTH BODY STRUCTURES (2) Abscess Code(s): L02.91 - CUTANEOUS ABSCESS, UNSPECIFIED (3) Chest wall pain Code(s): R07.89 - OTHER CHEST PAIN (4) ESRD (end stage renal disease) Code(s): N18.6 - END STAGE RENAL DISEASE (5) New onset atrial fibrillation Code(s): I48.91 - UNSPECIFIED ATRIAL FIBRILLATION (6) Obesity Code(s): E66.9 - OBESITY, UNSPECIFIED (7) Weakness Code(s): R53.1 - WEAKNESS (8) Diabetes Code(s): E11.9 - TYPE 2 DIABETES MELLITUS WITHOUT COMPLICATIONS Qualifiers: Diabetes mellitus medical consultant insulin use: unspecified group home insulin use status Diabetes mellitus complication status: with circulatory complication (9) Dialysis patient Code(s): Z99.2 - DEPENDENCE ON RENAL DIALYSIS (10) HLD (hyperlipidemia) Code(s): E78.5 - HYPERLIPIDEMIA, UNSPECIFIED (11) HTN (hypertension) Code(s): I10 - ESSENTIAL (PRIMARY) HYPERTENSION (12) Abscess of chest wall Code(s): L02.213 - CUTANEOUS ABSCESS OF CHEST WALL 13. STAPH BACTEREMIA 14.A-FIB Assessment/Plan LEFT CHEST WALL ABSCESS S/P DEBRIDEMENT ABNORMALITIES ON LUNG CT APPEAR CHRONIC AND SUBPLEURAL WOULD REPEAT CT CHEST AN OUTPATIENT IN 2 MONTHS IF INCREASE IN SIZE WOULD REQUEST PET SCAN ABX PER ID AC Dr Haddad
--- NOTE | 2019-12-23 14:39 | PN ---
Progress Note (short form) - Note Progress Note: Patient seen in follow up. No new complaints. No significant events overnight. Inpatient Meds reviewed. Current Medications Generic Name Dose Route Start Last Admin Trade Name Freq PRN Reason Stop Dose Admin Acetaminophen 650 mg 12/22/19 10:00 12/23/19 11:15 Tylenol - PO 650 mg Q6H PRN Administration FEVER Apixaban 5 mg 12/21/19 17:15 12/23/19 11:09 Eliquis - PO 5 mg BID MARK Administration Atorvastatin Calcium 40 mg 12/17/19 22:00 12/22/19 21:50 Lipitor - PO 40 mg HS MARK Administration Carvedilol 25 mg 12/17/19 22:00 12/23/19 11:09 Coreg - PO 25 mg BID MARK Administration Cinacalcet 60 mg 12/18/19 10:00 12/23/19 11:11 Sensipar - PO 60 mg DAILY [facility] Administration Diltiazem HCl 30 mg 12/21/19 18:00 12/23/19 12:34 Cardizem - PO 30 mg Q6HPO MARK Administration Cefazolin Sodium 1 gm/ 50 mls @ 100 mls/hr 12/22/19 10:00 12/23/19 11:09 Dextrose IVPB 100 mls/hr DAILY [facility] Administration Sodium Chloride 250 mls @ 3,000 mls/hr 12/22/19 15:43 Normal Saline - IV 12/23/19 15:42 PRN PRN Hypotension during Dialysis Insulin Aspart 1 vial 12/17/19 22:00 12/23/19 12:10 Novolog Vial Sliding Scale - SQ 8 units ACHS [facility] Administration Protocol Lisinopril 5 mg 12/20/19 10:00 12/23/19 11:09 Prinivil PO 5 mg DAILY [facility] Administration Pantoprazole Sodium 40 mg 12/18/19 10:00 12/23/19 11:09 Protonix - PO 40 mg DAILY [facility] Administration On Examination: Last Vital Signs Temp Pulse Resp BP Pulse Ox 98.7 F 107 H 20 138/96 97 12/23/19 10:00 12/23/19 10:00 12/23/19 10:00 12/23/19 10:00 12/23/19 10:00 General: In no acute distress, supine in bed Extremities: No pallor or icterus. No palpable lymphadenopathy. Chest: good air entry bilaterally, clear Abdomen: Non-distended, non-tender, no palpable organomegaly. Neuro: Alert. Labs: CBC, BMP 12/22/19 11:33 12/22/19 11:33 Assessment. Anemia stable - no labs today. Continue to monitor. Procrit as per renal protocol. Anticoagulation as per cardiology, for AF - Eliquis.
--- NOTE | 2019-12-23 15:11 | PN ---
Progress Note (short form) - Note Progress Note: Coverage for Dr. Елена Nguyen Chief Complaint: Events noted, notes reviewed, reporting left shoulder discomfort, denies any chest discomfort or dyspnea History of Present Illness: Seen and examined on telemetry. Events noted, notes reviewed, reporting left shoulder discomfort, denies any chest discomfort or dyspnea Medications: Current Medications Acetaminophen (Tylenol -) 650 mg PO Q6H PRN PRN Reason: FEVER Last Admin: 12/23/19 11:15 Dose: 650 mg Apixaban (Eliquis -) 5 mg PO BID [facility] Last Admin: 12/23/19 11:09 Dose: 5 mg Atorvastatin Calcium (Lipitor -) 40 mg PO HS [facility] Last Admin: 12/22/19 21:50 Dose: 40 mg Carvedilol (Coreg -) 25 mg PO BID [facility] Last Admin: 12/23/19 11:09 Dose: 25 mg Cinacalcet (Sensipar -) 60 mg PO DAILY [facility] Last Admin: 12/23/19 11:11 Dose: 60 mg Diltiazem HCl (Cardizem -) 30 mg PO Q6HPO [facility] Last Admin: 12/23/19 12:34 Dose: 30 mg Cefazolin Sodium 1 gm/ (Dextrose) 50 mls @ 100 mls/hr IVPB DAILY [facility] Last Admin: 12/23/19 11:09 Dose: 100 mls/hr Sodium Chloride (Normal Saline -) 250 mls @ 3,000 mls/hr IV PRN PRN PRN Reason: Hypotension during Dialysis Stop: 12/23/19 15:42 Insulin Aspart (Novolog Vial Sliding Scale -) 1 vial SQ ACHS [facility]; Protocol Last Admin: 12/23/19 12:10 Dose: 8 units Lisinopril (Prinivil) 5 mg PO DAILY [facility] Last Admin: 12/23/19 11:09 Dose: 5 mg Pantoprazole Sodium (Protonix -) 40 mg PO DAILY [facility] Last Admin: 12/23/19 11:09 Dose: 40 mg Review of Systems - Review of Systems Constitutional: denies: Chills, Fever Cardiovascular: As noted above Respiratory: denies: Cough or Sputum Production Gastrointestinal: denies: Nausea, Vomiting, Diarrhea, Constipation or Abdominal Pain Neurological: denies: Headaches Vital Signs: Last Vital Signs Temp Pulse Resp BP Pulse Ox 98.7 F 107 H 20 138/96 97 12/23/19 10:00 12/23/19 10:00 12/23/19 10:00 12/23/19 10:00 12/23/19 10:00 Intake & Output 12/20/19 12/21/19 12/22/19 12/23/19 23:59 23:59 23:59 23:59 Intake Total 1230 590 730 100 Output Total 0 3000 Balance 1230 590 -2270 100 Neck: Supple Negative JVD No Bruit Respiratory: Diminished breath sounds at the bases bilaterally Cardiovascular: S1 S2 Irregular Irregular Gastrointestinal: Soft Benign Normal Bowel Sounds Ext: Trace Edema Labs: CBC, BMP 12/22/19 11:33 12/22/19 11:33 Hepatic Panel Total Bilirubin 1.6 mg/dL (0.2-1) H 12/21/19 05:05 AST 24 U/L (15-37) 12/21/19 05:05 ALT 12 U/L (13-61) L 12/21/19 05:05 Alkaline Phosphatase 139 U/L (45-117) H 12/21/19 05:05 Albumin 1.7 g/dl (3.4-5.0) L 12/21/19 05:05 INR, PTT INR 1.18 (0.83-1.09) H 12/22/19 11:33 Assessment/Plan ASSESSMENT: 1. Paroxysmal atrial fibrillation [id number] score of 4 on anticoagulation therapy with Eliquis 2. Coronary artery disease coronary artery calcification on CT scan of the chest angina pectoris 3. Systolic/diastolic LV dysfunction with clinical class 0-I NYHA classification LV failure, clinically compensated/euvolemic 4. NSVT/nonsustained supraventricular and ventricular tachycardia 5. HTN 6. Diabetes mellitus 7. Hypercholesterolemia 8. End-stage renal disease on hemodialysis 9. Peripheral vascular disease 10. History of osteomyelitis PLAN: 1. Continue Coreg 2. Continue Lisinopril and further titrate dosage as needed 3. Discontinue Cardizem in view of the above-noted systolic left ventricular dysfunction 4. Continue Lipitor 5. Continue anticoagulation therapy with Eliquis 6. If supraventricular arrhythmia recurs consideration for initiation of Amiodarone therapy with caution 7. Hemodialysis as per renal service 8. Pain management as per primary team Nicci Rich M.D.
--- NOTE | 2019-12-23 16:55 | EKG ---
Test Reason : Blood Pressure : / mmHG Vent. Rate : 108 BPM Atrial Rate : 107 BPM P-R Int : 000 ms QRS Dur : 094 ms QT Int : 368 ms P-R-T Axes : 000 -21 078 degrees QTc Int : 493 ms ATRIAL FIBRILLATION WITH RAPID VENTRICULAR RESPONSE INCOMPLETE RIGHT BUNDLE BRANCH BLOCK ABNORMAL ECG WHEN COMPARED WITH ECG OF 20-DEC-2019 15:32, NONSPECIFIC T WAVE ABNORMALITY, IMPROVED IN INFERIOR LEADS NONSPECIFIC T WAVE ABNORMALITY, IMPROVED IN LATERAL LEADS CLINICAL CORRELATION IS RECOMMENDED Confirmed by JIMI PETERSON, ANA ([id number]) on 12/23/2019 4:54:44 PM Referred By: Esmer BRASWELL Confirmed By:ANA KRAUSE MD
--- NOTE | 2019-12-23 22:33 | PN ---
Progress Note, Physician - Current Medication List Current Medications: Active Medications Acetaminophen (Tylenol -) 650 mg PO Q6H PRN PRN Reason: FEVER Last Admin: 12/23/19 11:15 Dose: 650 mg Apixaban (Eliquis -) 5 mg PO BID [facility] Last Admin: 12/23/19 11:09 Dose: 5 mg Atorvastatin Calcium (Lipitor -) 40 mg PO HS [facility] Last Admin: 12/22/19 21:50 Dose: 40 mg Carvedilol (Coreg -) 25 mg PO BID [facility] Last Admin: 12/23/19 11:09 Dose: 25 mg Cinacalcet (Sensipar -) 60 mg PO DAILY [facility] Last Admin: 12/23/19 11:11 Dose: 60 mg Diltiazem HCl (Cardizem -) 30 mg PO Q6HPO [facility] Last Admin: 12/23/19 17:30 Dose: 30 mg Cefazolin Sodium 1 gm/ (Dextrose) 50 mls @ 100 mls/hr IVPB DAILY [facility] Last Admin: 12/23/19 11:09 Dose: 100 mls/hr Insulin Aspart (Novolog Vial Sliding Scale -) 1 vial SQ ACHS [facility]; Protocol Last Admin: 12/23/19 17:17 Dose: 2 units Lisinopril (Prinivil) 5 mg PO DAILY [facility] Last Admin: 12/23/19 11:09 Dose: 5 mg Pantoprazole Sodium (Protonix -) 40 mg PO DAILY [facility] Last Admin: 12/23/19 11:09 Dose: 40 mg - Objective Vital Signs: Vital Signs Temperature 98.0 F 12/23/19 18:00 Pulse Rate 102 H 12/23/19 18:00 Respiratory Rate 20 12/23/19 18:00 Blood Pressure 138/75 12/23/19 18:00 O2 Sat by Pulse Oximetry (%) 97 12/23/19 10:00 Labs: CBC, BMP 12/22/19 11:33 12/22/19 11:33 INR, PTT INR 1.18 (0.83-1.09) H 12/22/19 11:33 Problem List - Problems (1) Abscess Code(s): L02.91 - CUTANEOUS ABSCESS, UNSPECIFIED (2) Sepsis Code(s): A41.9 - SEPSIS, UNSPECIFIED ORGANISM Qualifiers: Sepsis type: sepsis due to unspecified organism Qualified Code(s): A41.9 - Sepsis, unspecified organism (3) Weakness Code(s): R53.1 - WEAKNESS (4) ESRD (end stage renal disease) Code(s): N18.6 - END STAGE RENAL DISEASE (5) New onset atrial fibrillation Code(s): I48.91 - UNSPECIFIED ATRIAL FIBRILLATION (6) HTN (hypertension) Code(s): I10 - ESSENTIAL (PRIMARY) HYPERTENSION (7) Diabetes Code(s): E11.9 - TYPE 2 DIABETES MELLITUS WITHOUT COMPLICATIONS 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
[2019-12-23] MEDS: ATORVASTATIN CA 40 MG TABLET (FP) PO SCH (23:07)
[2019-12-24] MEDS: dilTIAZem HCL 30 MG TABLET (FP) PO SCH ×2 (00:30→06:31)
[2019-12-24] MEDS: INSULIN SLIDING SCALE (NOVOLOG) 1 VIAL SQ SCH ×4 (07:11→22:15)
--- NOTE | 2019-12-24 08:26 | PN ---
Progress Note (short form) - Note Progress Note: Coverage for Dr. Елена Nguyen Chief Complaint: Events noted, notes reviewed, reporting persistent left shoulder discomfort, denies any chest discomfort or dyspnea History of Present Illness: Seen and examined on telemetry. Events noted, notes reviewed, reporting persistent left shoulder discomfort, denies any chest discomfort or dyspnea Medications: Current Medications Acetaminophen (Tylenol -) 650 mg PO Q6H PRN PRN Reason: FEVER Last Admin: 12/23/19 11:15 Dose: 650 mg Apixaban (Eliquis -) 5 mg PO BID [facility] Last Admin: 12/23/19 23:07 Dose: 5 mg Atorvastatin Calcium (Lipitor -) 40 mg PO HS [facility] Last Admin: 12/23/19 23:07 Dose: 40 mg Carvedilol (Coreg -) 25 mg PO BID [facility] Last Admin: 12/23/19 23:07 Dose: 25 mg Cinacalcet (Sensipar -) 60 mg PO DAILY [facility] Last Admin: 12/23/19 11:11 Dose: 60 mg Diltiazem HCl (Cardizem -) 30 mg PO Q6HPO [facility] Last Admin: 12/24/19 06:31 Dose: 30 mg Cefazolin Sodium 1 gm/ (Dextrose) 50 mls @ 100 mls/hr IVPB DAILY [facility] Last Admin: 12/23/19 11:09 Dose: 100 mls/hr Insulin Aspart (Novolog Vial Sliding Scale -) 1 vial SQ ACHS [facility]; Protocol Last Admin: 12/24/19 07:11 Dose: 4 units Lisinopril (Prinivil) 5 mg PO DAILY [facility] Last Admin: 12/23/19 11:09 Dose: 5 mg Pantoprazole Sodium (Protonix -) 40 mg PO DAILY [facility] Last Admin: 12/23/19 11:09 Dose: 40 mg Review of Systems - Review of Systems Constitutional: denies: Chills, Fever Cardiovascular: As noted above Respiratory: denies: Cough or Sputum Production Gastrointestinal: denies: Nausea, Vomiting, Diarrhea, Constipation or Abdominal Pain Neurological: denies: Headaches Vital Signs: Last Vital Signs Temp Pulse Resp BP Pulse Ox 97.9 F 106 H 20 128/80 97 12/24/19 06:00 12/24/19 06:00 12/24/19 06:00 12/24/19 06:00 12/23/19 22:00 Intake & Output 12/21/19 12/22/19 12/23/19 12/24/19 23:59 23:59 23:59 23:59 Intake Total 590 730 150 100 Output Total 3000 Balance 590 -2270 150 100 Neck: Supple Negative JVD No Bruit Respiratory: Diminished breath sounds at the bases bilaterally Cardiovascular: S1 S2 Irregular Irregular Gastrointestinal: Soft Benign Normal Bowel Sounds Ext: Trace Edema Labs: CBC, BMP 12/22/19 11:33 12/22/19 11:33 Hepatic Panel Total Bilirubin 1.6 mg/dL (0.2-1) H 12/21/19 05:05 AST 24 U/L (15-37) 12/21/19 05:05 ALT 12 U/L (13-61) L 12/21/19 05:05 Alkaline Phosphatase 139 U/L (45-117) H 12/21/19 05:05 Albumin 1.7 g/dl (3.4-5.0) L 12/21/19 05:05 INR, PTT INR 1.18 (0.83-1.09) H 12/22/19 11:33 Assessment/Plan ASSESSMENT: 1. Paroxysmal atrial fibrillation [id number] score of 4 on anticoagulation therapy with Eliquis 2. Coronary artery disease coronary artery calcification on CT scan of the chest angina pectoris 3. Systolic/diastolic LV dysfunction with clinical class 0-I NYHA classification LV failure, clinically compensated/euvolemic 4. NSVT/history of nonsustained supraventricular and ventricular tachycardia 5. HTN 6. Diabetes mellitus 7. Hypercholesterolemia 8. End-stage renal disease on hemodialysis 9. Peripheral vascular disease 10. History of osteomyelitis PLAN: 1. Continue Coreg 2. Continue Lisinopril 3. As outlined in yesterday's note discontinue Cardizem in view of the above- noted systolic left ventricular dysfunction 4. Continue Lipitor 5. Continue anticoagulation therapy with Eliquis 6. If supraventricular arrhythmia recurs consideration for initiation of Amiodarone therapy with caution 7. Hemodialysis as per renal service 8. Pain management as per primary team Nicci Rich M.D.
[2019-12-24] MEDS ORDERED: DEXTROSE 5%-WATER - 50 ML IVPB ONE (09:34)
[2019-12-24] MEDS ORDERED: ceFAZolin SODIUM 1 GM VIAL ONE (09:34)
[2019-12-24] MEDS ORDERED: PT OWN MED DRAWER 7, Y5N ONE (09:34)
[2019-12-24] MEDS: LISINOPRIL 5 MG TABLET (FP) PO SCH (10:02)
[2019-12-24] MEDS: APIXABAN 5 MG TABLET PO SCH ×2 (10:02→22:15)
[2019-12-24] MEDS: CARVEDILOL 25 MG TABLET (FP) PO SCH ×2 (10:02→22:15)
[2019-12-24] MEDS: CEFAZOLIN 1 GM in DEXTROSE 5%-WATER - 50 ML IVPB SCH (10:02)
[2019-12-24] MEDS: PANTOPRAZOLE 40 MG TABLET PO SCH (10:02)
[2019-12-24] MEDS: CINACALCET HCL 30 MG TAB (FP) PO SCH (10:02)
--- NOTE | 2019-12-24 12:29 | PN ---
Progress Note, Physician History of Present Illness: Pt states he feels the same. Some mild discomfort at chest wall incision site. Otherwise afebrile, tolerating antibiotics. - Current Medication List Current Medications: Active Medications Acetaminophen (Tylenol -) 650 mg PO Q6H PRN PRN Reason: FEVER Last Admin: 12/23/19 11:15 Dose: 650 mg Apixaban (Eliquis -) 5 mg PO BID [facility] Last Admin: 12/24/19 10:02 Dose: 5 mg Atorvastatin Calcium (Lipitor -) 40 mg PO HS [facility] Last Admin: 12/23/19 23:07 Dose: 40 mg Carvedilol (Coreg -) 25 mg PO BID [facility] Last Admin: 12/24/19 10:02 Dose: 25 mg Cinacalcet (Sensipar -) 60 mg PO DAILY [facility] Last Admin: 12/24/19 10:02 Dose: 60 mg Cefazolin Sodium 1 gm/ (Dextrose) 50 mls @ 100 mls/hr IVPB DAILY [facility] Last Admin: 12/24/19 10:02 Dose: 100 mls/hr Insulin Aspart (Novolog Vial Sliding Scale -) 1 vial SQ ACHS [facility]; Protocol Last Admin: 12/24/19 11:29 Dose: 2 units Lisinopril (Prinivil) 10 mg PO DAILY [facility] Pantoprazole Sodium (Protonix -) 40 mg PO DAILY [facility] Last Admin: 12/24/19 10:02 Dose: 40 mg - Objective Vital Signs: Vital Signs Temperature 97.9 F 12/24/19 10:00 Pulse Rate 113 H 12/24/19 10:00 Respiratory Rate 20 12/24/19 10:00 Blood Pressure 145/78 12/24/19 10:00 O2 Sat by Pulse Oximetry (%) 97 12/24/19 10:00 Constitutional: Yes: No Distress, Calm HENT: Yes: Atraumatic Cardiovascular: Yes: Pulse Irregular Respiratory: Yes: CTA Bilaterally Gastrointestinal: Yes: Normal Bowel Sounds, Soft, Abdomen, Obese Integumentary: Yes: WNL Wound/Incision: Yes: Dressing Dry and Intact Neurological: Yes: Alert Labs: CBC, BMP 12/22/19 11:33 12/22/19 11:33 INR, PTT INR 1.18 (0.83-1.09) H 12/22/19 11:33 Microbiology 12/17/19 18:00 Abscess Gram Stain - Final 12/17/19 18:00 Abscess Wound Culture - Final NO GROWTH AFTER 48 HOURS INCUBATION 12/12/19 09:58 Blood - Peripheral Venous Blood Culture - Final NO GROWTH AFTER 5 DAYS INCUBATION 12/12/19 09:46 Blood - Peripheral Venous Blood Culture - Final NO GROWTH AFTER 5 DAYS INCUBATION 12/10/19 14:30 Blood - Pre-Dialysis Blood Culture - Final Staphylococcus Aureus 12/10/19 14:30 Blood - Pre-Dialysis Blood Culture - Final Staphylococcus Aureus 12/09/19 12:48 Blood - Peripheral Venous Blood Culture - Final Presumptive Mssa (Pbp2a Neg) 12/09/19 12:30 Blood - Peripheral Venous Blood Culture - Final Staphylococcus Aureus 12/08/19 11:15 Blood - Peripheral Venous Blood Culture - Final Staphylococcus Aureus 12/08/19 11:15 Blood - Peripheral Venous Blood Culture - Final Staphylococcus Aureus Problem List - Problems (1) Atrial fibrillation with rapid ventricular response Code(s): I48.91 - UNSPECIFIED ATRIAL FIBRILLATION (2) ESRD (end stage renal disease) Code(s): N18.6 - END STAGE RENAL DISEASE (3) Hyperkalemia Code(s): E87.5 - HYPERKALEMIA (4) New onset atrial fibrillation Code(s): I48.91 - UNSPECIFIED ATRIAL FIBRILLATION (5) Diabetes Code(s): E11.9 - TYPE 2 DIABETES MELLITUS WITHOUT COMPLICATIONS Qualifiers: Diabetes mellitus jail insulin use: unspecified jail insulin use status Diabetes mellitus complication status: with circulatory complication (6) Dialysis patient Code(s): Z99.2 - DEPENDENCE ON RENAL DIALYSIS (7) HLD (hyperlipidemia) Code(s): E78.5 - HYPERLIPIDEMIA, UNSPECIFIED (8) HTN (hypertension) Code(s): I10 - ESSENTIAL (PRIMARY) HYPERTENSION (9) Sepsis Code(s): A41.9 - SEPSIS, UNSPECIFIED ORGANISM Qualifiers: Sepsis type: sepsis due to unspecified organism Qualified Code(s): A41.9 - Sepsis, unspecified organism Assessment/Plan Sepsis Staph aureus bacteremia Lt chest wall abscess s/p I+D Fever Leukocytosis AFIB ESRD on HD DM PVD Obesity CHF Hx of OM/toe -- continue Cefazolin -- repeat Blood cultures neg -- afebrile, stable at this time -- cbc not repeated, ordered for tomorrow
[2019-12-24] MEDS: ACETAMINOPHEN 325 MG TABLET (FP) PO PRN (12:32)
--- NOTE | 2019-12-24 12:36 | PN ---
Progress Note (short form) - Note Progress Note: Breathing feels better today. No acute events overnight. Intake & Output 12/21/19 12/22/19 12/23/19 12/24/19 23:59 23:59 23:59 23:59 Intake Total 590 730 150 100 Output Total 3000 Balance 590 -2270 150 100 Last Vital Signs Temp Pulse Resp BP Pulse Ox 97.9 F 113 H 20 145/78 97 12/24/19 10:00 12/24/19 10:00 12/24/19 10:00 12/24/19 10:00 12/24/19 10:00 Active Medications Acetaminophen (Tylenol -) 650 mg PO Q6H PRN PRN Reason: FEVER Last Admin: 12/24/19 12:32 Dose: 650 mg Apixaban (Eliquis -) 5 mg PO BID [facility] Last Admin: 12/24/19 10:02 Dose: 5 mg Atorvastatin Calcium (Lipitor -) 40 mg PO HS [facility] Last Admin: 12/23/19 23:07 Dose: 40 mg Carvedilol (Coreg -) 25 mg PO BID [facility] Last Admin: 12/24/19 10:02 Dose: 25 mg Cinacalcet (Sensipar -) 60 mg PO DAILY [facility] Last Admin: 12/24/19 10:02 Dose: 60 mg Cefazolin Sodium 1 gm/ (Dextrose) 50 mls @ 100 mls/hr IVPB DAILY [facility] Last Admin: 12/24/19 10:02 Dose: 100 mls/hr Insulin Aspart (Novolog Vial Sliding Scale -) 1 vial SQ ACHS [facility]; Protocol Last Admin: 12/24/19 11:29 Dose: 2 units Lisinopril (Prinivil) 10 mg PO DAILY [facility] Pantoprazole Sodium (Protonix -) 40 mg PO DAILY [facility] Last Admin: 12/24/19 10:02 Dose: 40 mg Constitutional: Yes: NAD Eyes: Yes: WNL HENT: Yes: WNL Neck: Yes: WNL Cardiovascular: Yes: Pulse Irregular, S1, S2 Respiratory: Yes: CTA Bilaterally Gastrointestinal: Yes: Normal Bowel Sounds, Soft, Abdomen, Obese Extremities: Yes: WNL Edema: Yes Edema: LLE: Trace, RLE: Trace Labs: Laboratory Results - last 24 hr 12/23/19 12/23/19 12/24/19 17:16 20:38 06:07 POC Glucometer 185 230 222 12/24/19 11:29 POC Glucometer 166 Assessment/Plan Problem List - Problems (1) Abnormal CT of the chest Code(s): R93.89 - ABNORMAL FINDINGS ON DX IMAGING OF OTH BODY STRUCTURES (2) Abscess Code(s): L02.91 - CUTANEOUS ABSCESS, UNSPECIFIED (3) Chest wall pain Code(s): R07.89 - OTHER CHEST PAIN (4) ESRD (end stage renal disease) Code(s): N18.6 - END STAGE RENAL DISEASE (5) New onset atrial fibrillation Code(s): I48.91 - UNSPECIFIED ATRIAL FIBRILLATION (6) Obesity Code(s): E66.9 - OBESITY, UNSPECIFIED (7) Weakness Code(s): R53.1 - WEAKNESS (8) Diabetes Code(s): E11.9 - TYPE 2 DIABETES MELLITUS WITHOUT COMPLICATIONS Qualifiers: Diabetes mellitus 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 STAPH BACTEREMIA 14.A-FIB Assessment/Plan LEFT CHEST WALL ABSCESS S/P DEBRIDEMENT ABNORMALITIES ON LUNG CT APPEAR CHRONIC AND SUBPLEURAL WOULD REPEAT CT CHEST AN OUTPATIENT IN 2 MONTHS IF INCREASE IN SIZE WOULD REQUEST PET SCAN ABX PER ID AC Dr Haddad
--- NOTE | 2019-12-24 19:57 | PN ---
Progress Note, Physician History of Present Illness: No new complaints - Current Medication List Current Medications: Active Medications Acetaminophen (Tylenol -) 650 mg PO Q6H PRN PRN Reason: FEVER Last Admin: 12/24/19 12:32 Dose: 650 mg Apixaban (Eliquis -) 5 mg PO BID [facility] Last Admin: 12/24/19 10:02 Dose: 5 mg Atorvastatin Calcium (Lipitor -) 40 mg PO HS [facility] Last Admin: 12/23/19 23:07 Dose: 40 mg Carvedilol (Coreg -) 25 mg PO BID [facility] Last Admin: 12/24/19 10:02 Dose: 25 mg Cinacalcet (Sensipar -) 60 mg PO DAILY [facility] Last Admin: 12/24/19 10:02 Dose: 60 mg Cefazolin Sodium 1 gm/ (Dextrose) 50 mls @ 100 mls/hr IVPB DAILY [facility] Last Admin: 12/24/19 10:02 Dose: 100 mls/hr Insulin Aspart (Novolog Vial Sliding Scale -) 1 vial SQ ACHS [facility]; Protocol Last Admin: 12/24/19 17:18 Dose: 4 units Lisinopril (Prinivil) 10 mg PO DAILY [facility] Pantoprazole Sodium (Protonix -) 40 mg PO DAILY [facility] Last Admin: 12/24/19 10:02 Dose: 40 mg - Objective Vital Signs: Vital Signs Temperature 98 F 12/24/19 13:40 Pulse Rate 96 H 12/24/19 13:40 Respiratory Rate 18 12/24/19 13:40 Blood Pressure 121/81 12/24/19 13:40 O2 Sat by Pulse Oximetry (%) 97 12/24/19 10:00 Neck: Yes: WNL, Supple Cardiovascular: Yes: WNL, Regular Rate and Rhythm Respiratory: Yes: WNL, Regular, CTA Bilaterally Gastrointestinal: Yes: WNL, Normal Bowel Sounds, Soft, Abdomen, Obese Labs: CBC, BMP 12/22/19 11:33 12/22/19 11:33 INR, PTT INR 1.18 (0.83-1.09) H 12/22/19 11:33 Problem List - Problems (1) Abscess Assessment/Plan: CT scan chest showed Lt upper 1/3 pectoralis muscle swelling w/ foci air/gas and ?pulmonary wedge shaped ? infarct S/P I&D of lt ant chest wall Follow cultures Cont IV ancef Code(s): L02.91 - CUTANEOUS ABSCESS, UNSPECIFIED (2) Sepsis Assessment/Plan: Due to staph aureus bacteremia Repeat BC remain negative Cont IV naficillin/zosyn w/ dialysis Code(s): A41.9 - SEPSIS, UNSPECIFIED ORGANISM Qualifiers: Sepsis type: sepsis due to unspecified organism Qualified Code(s): A41.9 - Sepsis, unspecified organism (3) Weakness Assessment/Plan: Ct scan head was unremarkable Neuro consult noted ?femoral neuropathy Code(s): R53.1 - WEAKNESS (4) ESRD (end stage renal disease) Assessment/Plan: Pt on dialysis As per renal Code(s): N18.6 - END STAGE RENAL DISEASE (5) New onset atrial fibrillation Assessment/Plan: ?Due to sepsis/fever/Pt is allergic to pork therefore cannot use heparin Cont eliquis Cont metoprolol/cardizem Code(s): I48.91 - UNSPECIFIED ATRIAL FIBRILLATION (6) HTN (hypertension) Code(s): I10 - ESSENTIAL (PRIMARY) HYPERTENSION (7) Diabetes Assessment/Plan: Cont sliding scale w/ coverage Code(s): E11.9 - TYPE 2 DIABETES MELLITUS WITHOUT COMPLICATIONS Qualifiers: Diabetes mellitus terminal operator insulin use: unspecified usp insulin use status Diabetes mellitus complication status: with circulatory complication (8) Obesity Code(s): E66.9 - OBESITY, UNSPECIFIED
[2019-12-24] MEDS: ATORVASTATIN CA 40 MG TABLET (FP) PO SCH (22:15)
[2019-12-25] MEDS: INSULIN SLIDING SCALE (NOVOLOG) 1 VIAL SQ SCH ×4 (06:13→22:17)
--- NOTE | 2019-12-25 07:47 | PN ---
Progress Note (short form) - Note Progress Note: Coverage for Dr. Елена Nguyen Chief Complaint: Events noted, notes reviewed, reporting persistent left shoulder discomfort, denies any chest discomfort or dyspnea History of Present Illness: Seen and examined on telemetry. Events noted, notes reviewed, reporting persistent left shoulder discomfort, denies any chest discomfort or dyspnea Medications: Current Medications Acetaminophen (Tylenol -) 650 mg PO Q6H PRN PRN Reason: FEVER Last Admin: 12/24/19 12:32 Dose: 650 mg Apixaban (Eliquis -) 5 mg PO BID [facility] Last Admin: 12/24/19 22:15 Dose: 5 mg Atorvastatin Calcium (Lipitor -) 40 mg PO HS [facility] Last Admin: 12/24/19 22:15 Dose: 40 mg Carvedilol (Coreg -) 25 mg PO BID [facility] Last Admin: 12/24/19 22:15 Dose: 25 mg Cinacalcet (Sensipar -) 60 mg PO DAILY [facility] Last Admin: 12/24/19 10:02 Dose: 60 mg Cefazolin Sodium 1 gm/ (Dextrose) 50 mls @ 100 mls/hr IVPB DAILY [facility] Last Admin: 12/24/19 10:02 Dose: 100 mls/hr Insulin Aspart (Novolog Vial Sliding Scale -) 1 vial SQ ACHS [facility]; Protocol Last Admin: 12/25/19 06:13 Dose: 4 units Lisinopril (Prinivil) 10 mg PO DAILY [facility] Pantoprazole Sodium (Protonix -) 40 mg PO DAILY [facility] Last Admin: 12/24/19 10:02 Dose: 40 mg Review of Systems - Review of Systems Constitutional: denies: Chills, Fever Cardiovascular: As noted above Respiratory: denies: Cough or Sputum Production Gastrointestinal: denies: Nausea, Vomiting, Diarrhea, Constipation or Abdominal Pain Neurological: denies: Headaches Vital Signs: Last Vital Signs Temp Pulse Resp BP Pulse Ox 98.3 F 99 H 18 115/55 L 95 12/25/19 05:00 12/25/19 05:00 12/25/19 05:00 12/25/19 05:00 12/24/19 21:11 Intake & Output 12/22/19 12/23/19 12/24/19 12/25/19 23:59 23:59 23:59 23:59 Intake Total 730 150 270 Output Total 3000 0 Balance -2270 150 270 0 Neck: Supple Negative JVD No Bruit Respiratory: Diminished breath sounds at the bases bilaterally Cardiovascular: S1 S2 Irregular Irregular Gastrointestinal: Soft Benign Normal Bowel Sounds Ext: Trace Edema Labs: CBC, BMP 12/22/19 11:33 12/22/19 11:33 Hepatic Panel Total Bilirubin 1.6 mg/dL (0.2-1) H 12/21/19 05:05 AST 24 U/L (15-37) 12/21/19 05:05 ALT 12 U/L (13-61) L 12/21/19 05:05 Alkaline Phosphatase 139 U/L (45-117) H 12/21/19 05:05 Albumin 1.7 g/dl (3.4-5.0) L 12/21/19 05:05 INR, PTT INR 1.18 (0.83-1.09) H 12/22/19 11:33 Assessment/Plan ASSESSMENT: 1. Paroxysmal atrial fibrillation [id number] score of 4 on anticoagulation therapy with Eliquis 2. Coronary artery disease coronary artery calcification on CT scan of the chest angina pectoris 3. Systolic/diastolic LV dysfunction with clinical class 0-I NYHA classification LV failure, clinically compensated/euvolemic 4. NSVT/history of nonsustained supraventricular and ventricular tachycardia 5. HTN 6. Diabetes mellitus 7. Hypercholesterolemia 8. End-stage renal disease on hemodialysis 9. Peripheral vascular disease 10. History of osteomyelitis PLAN: 1. Continue Coreg 2. Continue Lisinopril 3. Continue Lipitor 4. Continue anticoagulation therapy with Eliquis 5. As outlined in the prior notes if supraventricular arrhythmia recurs consideration for initiation of Amiodarone therapy with caution 6. Hemodialysis as per renal service 7. Pain management as per primary team 8. May transfer to floor care from the cardiovascular point of view Nicci Rich M.D.
[2019-12-25] MEDS ORDERED: ceFAZolin SODIUM 1 GM VIAL ONE (08:27)
[2019-12-25] MEDS ORDERED: DEXTROSE 5%-WATER - 50 ML IVPB ONE (08:27)
[2019-12-25] MEDS: LISINOPRIL 5 MG TABLET (FP) PO SCH (09:22)
[2019-12-25] MEDS: APIXABAN 5 MG TABLET PO SCH (09:22)
[2019-12-25] MEDS: CARVEDILOL 25 MG TABLET (FP) PO SCH (09:22)
[2019-12-25] MEDS: CEFAZOLIN 1 GM in DEXTROSE 5%-WATER - 50 ML IVPB SCH (09:22)
[2019-12-25] MEDS: PANTOPRAZOLE 40 MG TABLET PO SCH (09:23)
[2019-12-25] MEDS: CINACALCET HCL 30 MG TAB (FP) PO SCH (09:24)
[2019-12-25] MEDS ORDERED: EPOETIN ALFA 10,000 UNIT/1 ML VIAL IVPUSH ONE (11:00)
[2019-12-25 11:01] LABS: HEMATOCRIT 29.2 % (35.4-49); HEMOGLOBIN 9.5 GM/dL (11.7-16.9); MCH 28.5 pg (25.7-33.7); MCHC 32.7 g/dl (32.0-35.9); MEAN CELL VOLUME 87.2 fl (80-96); MEAN PLT VOLUME 9.7 fl (7.5-11.1); PLATELET COUNT 229 K/MM3 (134-434); RBC 3.34 M/mm3 (4.00-5.60); RDW 16.6 % (11.9-15.9)
[2019-12-25 11:21] LABS: BLOOD UREA NITROGEN 43.6 mg/dL (7-18); CALCIUM 8.4 mg/dL (8.5-10.1); POTASSIUM 4.1 mmol/L (3.5-5.1)
[2019-12-25 11:24] LABS: CREATININE 9.4 mg/dL (0.55-1.3)
--- NOTE | 2019-12-25 12:26 | PN ---
Progress Note (short form) - Note Progress Note: PULMONARY VSS/AFEBRILE Constitutional: Yes: NAD Eyes: Yes: WNL HENT: Yes: WNL Neck: Yes: WNL Cardiovascular: Yes: Pulse Irregular, S1, S2 Respiratory: Yes: CTA Bilaterally Gastrointestinal: Yes: Normal Bowel Sounds, Soft, Abdomen, Obese Extremities: Yes: WNL Edema: Yes Edema: LLE: Trace, RLE: Trace Labs: NOTED - Problems (1) Abnormal CT of the chest Code(s): R93.89 - ABNORMAL FINDINGS ON DX IMAGING OF OTH BODY STRUCTURES (2) Abscess Code(s): L02.91 - CUTANEOUS ABSCESS, UNSPECIFIED (3) Chest wall pain Code(s): R07.89 - OTHER CHEST PAIN (4) ESRD (end stage renal disease) Code(s): N18.6 - END STAGE RENAL DISEASE (5) New onset atrial fibrillation Code(s): I48.91 - UNSPECIFIED ATRIAL FIBRILLATION (6) Obesity Code(s): E66.9 - OBESITY, UNSPECIFIED (7) Weakness Code(s): R53.1 - WEAKNESS (8) Diabetes Code(s): E11.9 - TYPE 2 DIABETES MELLITUS WITHOUT COMPLICATIONS Qualifiers: Diabetes mellitus penitentiary insulin use: unspecified penitentiary insulin use status Diabetes mellitus complication status: with circulatory complication (9) Dialysis patient Code(s): Z99.2 - DEPENDENCE ON RENAL DIALYSIS (10) HLD (hyperlipidemia) Code(s): E78.5 - HYPERLIPIDEMIA, UNSPECIFIED (11) HTN (hypertension) Code(s): I10 - ESSENTIAL (PRIMARY) HYPERTENSION (12) Abscess of chest wall Code(s): L02.213 - CUTANEOUS ABSCESS OF CHEST WALL 13. STAPH BACTEREMIA 14.A-FIB Assessment/Plan LEFT CHEST WALL ABSCESS S/P DEBRIDEMENT ABNORMALITIES ON LUNG CT APPEAR CHRONIC AND SUBPLEURAL WOULD REPEAT CT CHEST AN OUTPATIENT IN 2 MONTHS IF INCREASE IN SIZE WOULD REQUEST PET SCAN ABX PER SILVESTRE GASPAR MD Problem List - Problems (1) Abnormal CT of the chest Code(s): R93.89 - ABNORMAL FINDINGS ON DX IMAGING OF OTH BODY STRUCTURES (2) Abscess Code(s): L02.91 - CUTANEOUS ABSCESS, UNSPECIFIED (3) Chest wall pain Code(s): R07.89 - OTHER CHEST PAIN (4) ESRD (end stage renal disease) Code(s): N18.6 - END STAGE RENAL DISEASE (5) New onset atrial fibrillation Code(s): I48.91 - UNSPECIFIED ATRIAL FIBRILLATION (6) Obesity Code(s): E66.9 - OBESITY, UNSPECIFIED (7) Weakness Code(s): R53.1 - WEAKNESS (8) Diabetes Code(s): E11.9 - TYPE 2 DIABETES MELLITUS WITHOUT COMPLICATIONS Qualifiers: Diabetes mellitus 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
--- NOTE | 2019-12-25 14:01 | PN ---
Progress Note, Physician History of Present Illness: Pt seen and examined at bedside. He is awake and alert. He denies fevers or chills. - Current Medication List Current Medications: Active Medications Acetaminophen (Tylenol -) 650 mg PO Q6H PRN PRN Reason: FEVER Last Admin: 12/24/19 12:32 Dose: 650 mg Apixaban (Eliquis -) 5 mg PO BID [facility] Last Admin: 12/25/19 09:22 Dose: 5 mg Atorvastatin Calcium (Lipitor -) 40 mg PO HS [facility] Last Admin: 12/24/19 22:15 Dose: 40 mg Carvedilol (Coreg -) 25 mg PO BID [facility] Last Admin: 12/25/19 09:22 Dose: 25 mg Cinacalcet (Sensipar -) 60 mg PO DAILY [facility] Last Admin: 12/25/19 09:24 Dose: 60 mg Cefazolin Sodium 1 gm/ (Dextrose) 50 mls @ 100 mls/hr IVPB DAILY [facility] Last Admin: 12/25/19 09:22 Dose: 100 mls/hr Insulin Aspart (Novolog Vial Sliding Scale -) 1 vial SQ ACHS [facility]; Protocol Last Admin: 12/25/19 12:26 Dose: 2 units Lisinopril (Prinivil) 10 mg PO DAILY [facility] Last Admin: 12/25/19 09:22 Dose: 10 mg Pantoprazole Sodium (Protonix -) 40 mg PO DAILY [facility] Last Admin: 12/25/19 09:23 Dose: 40 mg - Objective Vital Signs: Vital Signs Temperature 98.3 F 12/25/19 10:15 Pulse Rate 58 L 12/25/19 12:20 Respiratory Rate 18 12/25/19 12:20 Blood Pressure 128/94 12/25/19 12:20 O2 Sat by Pulse Oximetry (%) 97 12/25/19 10:00 Constitutional: Yes: Calm Eyes: Yes: Conjunctiva Clear HENT: Yes: Atraumatic Cardiovascular: Yes: S1, S2 Respiratory: Yes: CTA Bilaterally Gastrointestinal: Yes: Soft, Abdomen, Obese Musculoskeletal: Yes: WNL Edema: LLE: Trace, RLE: Trace Neurological: Yes: Oriented Psychiatric: Yes: Oriented Labs: CBC, BMP 12/25/19 10:20 12/25/19 10:20 INR, PTT INR 1.18 (0.83-1.09) H 12/22/19 11:33 Problem List - Problems (1) ESRD (end stage renal disease) Code(s): N18.6 - END STAGE RENAL DISEASE Assessment/Plan Current Medications Generic Name Dose Route Start Last Admin Trade Name Freq PRN Reason Stop Dose Admin Acetaminophen 650 mg 12/22/19 10:00 12/24/19 12:32 Tylenol - PO 650 mg Q6H PRN Administration FEVER Apixaban 5 mg 12/21/19 17:15 12/25/19 09:22 Eliquis - PO 5 mg BID [facility] Administration Atorvastatin Calcium 40 mg 12/17/19 22:00 12/24/19 22:15 Lipitor - PO 40 mg HS [facility] Administration Carvedilol 25 mg 12/17/19 22:00 12/25/19 09:22 Coreg - PO 25 mg BID [facility] Administration Cinacalcet 60 mg 12/18/19 10:00 12/25/19 09:24 Sensipar - PO 60 mg DAILY [facility] Administration Cefazolin Sodium 1 gm/ 50 mls @ 100 mls/hr 12/22/19 10:00 12/25/19 09:22 Dextrose IVPB 100 mls/hr DAILY [facility] Administration Insulin Aspart 1 vial 12/17/19 22:00 12/25/19 12:26 Novolog Vial Sliding Scale - SQ 2 units ACHS [facility] Administration Protocol Lisinopril 10 mg 12/25/19 10:00 12/25/19 09:22 Prinivil PO 10 mg DAILY [facility] Administration Pantoprazole Sodium 40 mg 12/18/19 10:00 12/25/19 09:23 Protonix - PO 40 mg DAILY [facility] Administration Microbiology 12/17/19 18:00 Abscess Gram Stain - Final 12/17/19 18:00 Abscess Wound Culture - Final NO GROWTH AFTER 48 HOURS INCUBATION 12/12/19 09:58 Blood - Peripheral Venous Blood Culture - Final NO GROWTH AFTER 5 DAYS INCUBATION 12/12/19 09:46 Blood - Peripheral Venous Blood Culture - Final NO GROWTH AFTER 5 DAYS INCUBATION Coverage for Dr Pedro 1. Fever (Influenza negative, CXR w/o infiltrates) 2. Hyperkalemia 3. Tachycardia/Afib with RVR 4. ESRD on HD 5. DM 6. Hypertension 7. bacteremia 8. left chest wall mass/lesion Plan - HD today - on Cefazolin as per ID, on dischage can be on Cefazolin 2g/2g/3g with dialysis - cont wound care and dressing changes - renal diet - 1.2 l fluid restriction - follow cultures
--- NOTE | 2019-12-25 14:20 | PN ---
Progress Note, Physician History of Present Illness: patient stable no issues - Current Medication List Current Medications: Active Medications Acetaminophen (Tylenol -) 650 mg PO Q6H PRN PRN Reason: FEVER Last Admin: 12/24/19 12:32 Dose: 650 mg Apixaban (Eliquis -) 5 mg PO BID [facility] Last Admin: 12/25/19 09:22 Dose: 5 mg Atorvastatin Calcium (Lipitor -) 40 mg PO HS [facility] Last Admin: 12/24/19 22:15 Dose: 40 mg Carvedilol (Coreg -) 25 mg PO BID [facility] Last Admin: 12/25/19 09:22 Dose: 25 mg Cinacalcet (Sensipar -) 60 mg PO DAILY [facility] Last Admin: 12/25/19 09:24 Dose: 60 mg Cefazolin Sodium 1 gm/ (Dextrose) 50 mls @ 100 mls/hr IVPB DAILY [facility] Last Admin: 12/25/19 09:22 Dose: 100 mls/hr Insulin Aspart (Novolog Vial Sliding Scale -) 1 vial SQ ACHS [facility]; Protocol Last Admin: 12/25/19 12:26 Dose: 2 units Lisinopril (Prinivil) 10 mg PO DAILY [facility] Last Admin: 12/25/19 09:22 Dose: 10 mg Pantoprazole Sodium (Protonix -) 40 mg PO DAILY [facility] Last Admin: 12/25/19 09:23 Dose: 40 mg - Objective Vital Signs: Vital Signs Temperature 98.3 F 12/25/19 10:15 Pulse Rate 81 12/25/19 13:50 Respiratory Rate 18 12/25/19 13:50 Blood Pressure 134/82 12/25/19 13:50 O2 Sat by Pulse Oximetry (%) 97 12/25/19 10:00 Constitutional: Yes: No Distress, Calm, Obese Cardiovascular: Yes: S1, S2 Respiratory: Yes: Regular, CTA Bilaterally Gastrointestinal: Yes: Normal Bowel Sounds, Soft Musculoskeletal: Yes: WNL Extremities: Yes: WNL Neurological: Yes: Alert, Oriented Psychiatric: Yes: Alert, Oriented Labs: CBC, BMP 12/25/19 10:20 12/25/19 10:20 INR, PTT INR 1.18 (0.83-1.09) H 12/22/19 11:33 Assessment/Plan Problem List - Problems (1) Atrial fibrillation with rapid ventricular response Code(s): I48.91 - UNSPECIFIED ATRIAL FIBRILLATION (2) ESRD (end stage renal disease) Code(s): N18.6 - END STAGE RENAL DISEASE (3) Hyperkalemia Code(s): E87.5 - HYPERKALEMIA (4) New onset atrial fibrillation Code(s): I48.91 - UNSPECIFIED ATRIAL FIBRILLATION (5) Diabetes Code(s): E11.9 - TYPE 2 DIABETES MELLITUS WITHOUT COMPLICATIONS Qualifiers: Diabetes mellitus chcf insulin use: unspecified chcf insulin use 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 male with PMH of ESRD on HD, obesity, DM, CHF, PVD, OM s/p Rt 5th toe amp, SVT/PSVT presented to the ER with fever that began during HD the day before associated with generalized weakness and body aches Sepsis Bacteremia Fever Leukocytosis New Onset AFIB ESRD on HD DM PVD Obesity CHF Hx of OM/toe plan continue abx wound care
[2019-12-25 15:44] LABS: CREATININE 3.8 mg/dL (0.55-1.3)
--- NOTE | 2019-12-25 18:59 | PN ---
Progress Note (short form) - Note Progress Note: PAtient seen and examined LEft infraclavicular abscess drainage Denies any complaints Last Vital Signs Temp Pulse Resp BP Pulse Ox 98.1 F 111 H 20 127/79 97 12/25/19 22:00 12/25/19 22:00 12/25/19 22:00 12/25/19 22:00 12/25/19 22:00 Cor: RSR, No murmurs, No gallops Lungs: Clear to P&A Abd: Soft, Normal bowel sounds, No organomegaly Ext:No significant edema Labs/Meds reviewed A/P 64yM w PMHx ESRD on Hd (MWF), obesity, nonsustained/parxysmal SVT, HTN, IDDM, ESBL osteomyelitis, PVD presenting w 1d fever, tachycardia, body aches and 1mo diarrhea. New onset afib/.RVR 1. Fever / S. aureus bacteremia 2. Hyperkalemia 3. Tachycardia/Afib with RVR 4. ESRD on HD 5. DM 6. Hypertension 7. Rt. femoral mononeuropathy 8. Jehovahs witness Infection of left pectoralis major --on antibiotcs per ID and s/p debridement x 2 --last on 12/20/19 Afib/elevated INR Coumadin was held s/p vit. K 10mg Patient refusing any blood products, even if he were to be in a life threatening situation and was facing imminent . h/o pork intolerance. No allergic symptoms Received heparin at HD Anticoagulation for afib --per cardiology and renal teams Anemia -- suspech anemia of chronic disease-- CKD+ infection. No obvious bleeding JEhovahs witness Dose procrit at dialysis. Discussed with patient pros/cons including thrombotic events, HTN, stroke, CVA. He understands risks/benefits and is agreeable Iron sat 17%, Ferritin 2200 s/o mixed picture will discuss with renal team [id number]
[2019-12-25] MEDS: ATORVASTATIN CA 40 MG TABLET (FP) PO SCH (22:17)
[2019-12-25] MEDS: APIXABAN 2.5 MG TABLET PO SCH (22:18)
--- NOTE | 2019-12-25 23:34 | PN ---
Progress Note, Physician History of Present Illness: No new complaints - Current Medication List Current Medications: Active Medications Acetaminophen (Tylenol -) 650 mg PO Q6H PRN PRN Reason: FEVER Last Admin: 12/24/19 12:32 Dose: 650 mg Apixaban (Eliquis -) 5 mg PO BID [facility] Last Admin: 12/25/19 22:18 Dose: 5 mg Atorvastatin Calcium (Lipitor -) 40 mg PO HS [facility] Last Admin: 12/25/19 22:17 Dose: 40 mg Carvedilol (Coreg -) 25 mg PO BID [facility] Last Admin: 12/25/19 09:22 Dose: 25 mg Cinacalcet (Sensipar -) 60 mg PO DAILY [facility] Last Admin: 12/25/19 09:24 Dose: 60 mg Cefazolin Sodium 1 gm/ (Dextrose) 50 mls @ 100 mls/hr IVPB DAILY [facility] Last Admin: 12/25/19 09:22 Dose: 100 mls/hr Insulin Aspart (Novolog Vial Sliding Scale -) 1 vial SQ ACHS [facility]; Protocol Last Admin: 12/25/19 22:17 Dose: 4 units Lisinopril (Prinivil) 10 mg PO DAILY [facility] Last Admin: 12/25/19 09:22 Dose: 10 mg Pantoprazole Sodium (Protonix -) 40 mg PO DAILY [facility] Last Admin: 12/25/19 09:23 Dose: 40 mg - Objective Vital Signs: Vital Signs Temperature 98.1 F 12/25/19 22:00 Pulse Rate 111 H 12/25/19 22:00 Respiratory Rate 20 12/25/19 22:00 Blood Pressure 127/79 12/25/19 22:00 O2 Sat by Pulse Oximetry (%) 97 12/25/19 22:00 Cardiovascular: Yes: Pulse Irregular Respiratory: Yes: WNL, Regular, CTA Bilaterally Gastrointestinal: Yes: WNL, Normal Bowel Sounds, Soft Labs: CBC, BMP 12/25/19 10:20 12/25/19 14:10 INR, PTT INR 1.18 (0.83-1.09) H 12/22/19 11:33 Problem List - Problems (1) Abscess Assessment/Plan: CT scan chest showed Lt upper 1/3 pectoralis muscle swelling w/ foci air/gas and ?pulmonary wedge shaped ? infarct S/P I&D of lt ant chest wall Follow cultures Cont IV ancef Code(s): L02.91 - CUTANEOUS ABSCESS, UNSPECIFIED (2) Sepsis Assessment/Plan: Due to staph aureus bacteremia Repeat BC remain negative Cont IV naficillin/zosyn w/ dialysis Code(s): A41.9 - SEPSIS, UNSPECIFIED ORGANISM Qualifiers: Qualified Code(s): A41.9 - Sepsis, unspecified organism (3) Weakness Assessment/Plan: Ct scan head was unremarkable Neuro consult noted ?femoral neuropathy Code(s): R53.1 - WEAKNESS (4) ESRD (end stage renal disease) Assessment/Plan: Pt on dialysis As per renal Code(s): N18.6 - END STAGE RENAL DISEASE (5) New onset atrial fibrillation Assessment/Plan: ?Due to sepsis/fever/Pt is allergic to pork therefore cannot use heparin Cont eliquis Cont metoprolol/cardizem Code(s): I48.91 - UNSPECIFIED ATRIAL FIBRILLATION (6) HTN (hypertension) Code(s): I10 - ESSENTIAL (PRIMARY) HYPERTENSION (7) Diabetes Assessment/Plan: Cont sliding scale w/ coverage Code(s): E11.9 - TYPE 2 DIABETES MELLITUS WITHOUT COMPLICATIONS (8) Obesity Code(s): E66.9 - OBESITY, UNSPECIFIED
[2019-12-26] MEDS: CARVEDILOL 25 MG TABLET (FP) PO SCH ×3 (02:54→23:43)
[2019-12-26] MEDS: INSULIN SLIDING SCALE (NOVOLOG) 1 VIAL SQ SCH ×4 (06:25→23:47)
[2019-12-26] MEDS: ACETAMINOPHEN 325 MG TABLET (FP) PO PRN ×2 (08:48→23:51)
[2019-12-26] MEDS ORDERED: DEXTROSE 5%-WATER - 50 ML IVPB ONE (10:29)
[2019-12-26] MEDS ORDERED: ceFAZolin SODIUM 1 GM VIAL ONE (10:29)
[2019-12-26] MEDS ORDERED: PT OWN MED DRAWER 7, Y5N ONE ×2 (10:29→12:11)
[2019-12-26] MEDS: LISINOPRIL 5 MG TABLET (FP) PO SCH (11:26)
[2019-12-26] MEDS: CEFAZOLIN 1 GM in DEXTROSE 5%-WATER - 50 ML IVPB SCH (11:27)
[2019-12-26] MEDS: PANTOPRAZOLE 40 MG TABLET PO SCH (11:27)
[2019-12-26] MEDS: CINACALCET HCL 30 MG TAB (FP) PO SCH (11:27)
--- NOTE | 2019-12-26 11:46 | PN ---
Progress Note, Physician History of Present Illness: pulmonary alert,comfortable,-resp distress,still c/o pain left chest secondary to abscess - Current Medication List Current Medications: Active Medications Acetaminophen (Tylenol -) 650 mg PO Q6H PRN PRN Reason: FEVER Last Admin: 12/26/19 08:48 Dose: 650 mg Apixaban (Eliquis -) 5 mg PO BID [facility] Last Admin: 12/25/19 22:18 Dose: 5 mg Atorvastatin Calcium (Lipitor -) 40 mg PO HS [facility] Last Admin: 12/25/19 22:17 Dose: 40 mg Carvedilol (Coreg -) 25 mg PO BID [facility] Last Admin: 12/26/19 11:27 Dose: 25 mg Cinacalcet (Sensipar -) 60 mg PO DAILY [facility] Last Admin: 12/26/19 11:27 Dose: 60 mg Cefazolin Sodium 1 gm/ (Dextrose) 50 mls @ 100 mls/hr IVPB DAILY [facility] Last Admin: 12/26/19 11:27 Dose: 100 mls/hr Insulin Aspart (Novolog Vial Sliding Scale -) 1 vial SQ ACHS [facility]; Protocol Last Admin: 12/26/19 11:27 Dose: 4 units Lisinopril (Prinivil) 10 mg PO DAILY [facility] Last Admin: 12/26/19 11:26 Dose: 10 mg Pantoprazole Sodium (Protonix -) 40 mg PO DAILY [facility] Last Admin: 12/26/19 11:27 Dose: 40 mg - Objective Vital Signs: Vital Signs Temperature 98.9 F 12/26/19 08:40 Pulse Rate 105 H 12/26/19 08:40 Respiratory Rate 20 12/26/19 09:00 Blood Pressure 129/72 12/26/19 08:40 O2 Sat by Pulse Oximetry (%) 99 12/26/19 09:47 Constitutional: Yes: Well Nourished, Calm Eyes: Yes: WNL HENT: Yes: WNL Neck: Yes: WNL Cardiovascular: Yes: Pulse Irregular, S1, S2 Respiratory: Yes: CTA Bilaterally Gastrointestinal: Yes: Normal Bowel Sounds, Soft Extremities: Yes: WNL Edema: No Labs: CBC, BMP 12/25/19 10:20 12/25/19 14:10 INR, PTT INR 1.18 (0.83-1.09) H 12/22/19 11:33 Assessment/Plan Problem List - Problems (1) Abnormal CT of the chest Code(s): R93.89 - ABNORMAL FINDINGS ON DX IMAGING OF OTH BODY STRUCTURES (2) Abscess Code(s): L02.91 - CUTANEOUS ABSCESS, UNSPECIFIED (3) Chest wall pain Code(s): R07.89 - OTHER CHEST PAIN (4) ESRD (end stage renal disease) Code(s): N18.6 - END STAGE RENAL DISEASE (5) New onset atrial fibrillation Code(s): I48.91 - UNSPECIFIED ATRIAL FIBRILLATION (6) Obesity Code(s): E66.9 - OBESITY, UNSPECIFIED (7) Weakness Code(s): R53.1 - WEAKNESS (8) Diabetes Code(s): E11.9 - TYPE 2 DIABETES MELLITUS WITHOUT COMPLICATIONS Qualifiers: Diabetes mellitus terminal superintendent insulin use: unspecified shelter insulin use status Diabetes mellitus complication status: with circulatory complication (9) Dialysis patient Code(s): Z99.2 - DEPENDENCE ON RENAL DIALYSIS (10) HLD (hyperlipidemia) Code(s): E78.5 - HYPERLIPIDEMIA, UNSPECIFIED (11) HTN (hypertension) Code(s): I10 - ESSENTIAL (PRIMARY) HYPERTENSION (12) Abscess of chest wall Code(s): L02.213 - CUTANEOUS ABSCESS OF CHEST WALL 13. STAPH BACTEREMIA 14.A-FIB Assessment/Plan LEFT CHEST WALL ABSCESS S/P DEBRIDEMENT ABNORMALITIES ON LUNG CT APPEAR CHRONIC AND SUBPLEURAL REPEAT CT CHEST AN OUTPATIENT IN 2 MONTHS IF INCREASE IN SIZE WOULD REQUEST PET SCAN CONTINUE ABX PER ID AC DR ORTEZ
[2019-12-26] MEDS: APIXABAN 2.5 MG TABLET PO SCH ×2 (12:16→23:43)
--- NOTE | 2019-12-26 13:19 | PN ---
Progress Note, Physician Chief Complaint: The patient seen in his room. On bed. Feels weak. Dressings over the left chest in place. Has pain. No discharge seen through the dressing. Had uneventful HD yesterdayt. - Current Medication List Current Medications: Active Medications Acetaminophen (Tylenol -) 650 mg PO Q6H PRN PRN Reason: FEVER Last Admin: 12/26/19 08:48 Dose: 650 mg Apixaban (Eliquis -) 5 mg PO BID [facility] Last Admin: 12/26/19 12:16 Dose: 5 mg Atorvastatin Calcium (Lipitor -) 40 mg PO HS [facility] Last Admin: 12/25/19 22:17 Dose: 40 mg Carvedilol (Coreg -) 25 mg PO BID [facility] Last Admin: 12/26/19 11:27 Dose: 25 mg Cinacalcet (Sensipar -) 60 mg PO DAILY [facility] Last Admin: 12/26/19 11:27 Dose: 60 mg Cefazolin Sodium 1 gm/ (Dextrose) 50 mls @ 100 mls/hr IVPB DAILY [facility] Last Admin: 12/26/19 11:27 Dose: 100 mls/hr Insulin Aspart (Novolog Vial Sliding Scale -) 1 vial SQ ACHS [facility]; Protocol Last Admin: 12/26/19 11:27 Dose: 4 units Lisinopril (Prinivil) 10 mg PO DAILY [facility] Last Admin: 12/26/19 11:26 Dose: 10 mg Pantoprazole Sodium (Protonix -) 40 mg PO DAILY [facility] Last Admin: 12/26/19 11:27 Dose: 40 mg - Objective Vital Signs: Vital Signs Temperature 98.9 F 12/26/19 08:40 Pulse Rate 105 H 12/26/19 08:40 Respiratory Rate 20 12/26/19 09:00 Blood Pressure 129/72 12/26/19 08:40 O2 Sat by Pulse Oximetry (%) 99 12/26/19 09:47 Constitutional: Yes: No Distress, Calm Eyes: Yes: Conjunctiva Clear, EOM Intact HENT: Yes: Normocephalic Neck: Yes: Trachea Midline Cardiovascular: Yes: Regular Rate and Rhythm, S1, S2 Respiratory: Yes: Diminished, Poor Air Entry, Other (Dresssings over the right upper chest over the draining abscess.) Gastrointestinal: Yes: Soft, Abdomen, Obese Genitourinary: No: CVA Tenderness - Left, CVA Tenderness - Right Musculoskeletal: Yes: Back Pain Labs: CBC, BMP 12/25/19 10:20 12/25/19 14:10 INR, PTT INR 1.18 (0.83-1.09) H 12/22/19 11:33 Problem List - Problems (1) Abscess Code(s): L02.91 - CUTANEOUS ABSCESS, UNSPECIFIED (2) Abscess of chest wall Code(s): L02.213 - CUTANEOUS ABSCESS OF CHEST WALL (3) Amputated toe of right foot Code(s): S98.131A - COMPLETE TRAUMATIC AMPUTATION OF ONE RIGHT LESSER TOE, INIT (4) Atrial fibrillation with rapid ventricular response Code(s): I48.91 - UNSPECIFIED ATRIAL FIBRILLATION (5) ESRD (end stage renal disease) Code(s): N18.6 - END STAGE RENAL DISEASE (6) Obesity Code(s): E66.9 - OBESITY, UNSPECIFIED (7) Systolic CHF Code(s): I50.20 - UNSPECIFIED SYSTOLIC (CONGESTIVE) HEART FAILURE (8) Type 2 diabetes mellitus with foot ulcer Code(s): E11.621 - TYPE 2 DIABETES MELLITUS WITH FOOT ULCER; L97.509 - NON- PRESSURE CHRONIC ULCER OTH PRT UNSP FOOT W UNSP SEVERITY Assessment/Plan 64 year old gentleman with history of ESRD on HD (MWF), DM, PVD Osteomylitis, hx of SVT/PSVT who presented from the dialysis center with fever and tachycardia. Found to have right upper chest, subclavicular abscess. 1. Fever Chest abscess. 2. Hyperkalemia 3. Tachycardia/Afib with RVR 4. ESRD on HD 5. DM 6. Hypertension For next HD tomorrow. To continue the Abx as ordered. Elizabet Arteaga MD
--- NOTE | 2019-12-26 13:42 | PN ---
Progress Note, Physician History of Present Illness: patient stable no issues - Current Medication List Current Medications: Active Medications Acetaminophen (Tylenol -) 650 mg PO Q6H PRN PRN Reason: FEVER Last Admin: 12/26/19 08:48 Dose: 650 mg Apixaban (Eliquis -) 5 mg PO BID [facility] Last Admin: 12/26/19 12:16 Dose: 5 mg Atorvastatin Calcium (Lipitor -) 40 mg PO HS [facility] Last Admin: 12/25/19 22:17 Dose: 40 mg Carvedilol (Coreg -) 25 mg PO BID [facility] Last Admin: 12/26/19 11:27 Dose: 25 mg Cinacalcet (Sensipar -) 60 mg PO DAILY [facility] Last Admin: 12/26/19 11:27 Dose: 60 mg Epoetin Lenny (Procrit -) 10,000 unit SQ ONCE ONE Stop: 12/27/19 13:21 Cefazolin Sodium 1 gm/ (Dextrose) 50 mls @ 100 mls/hr IVPB DAILY [facility] Last Admin: 12/26/19 11:27 Dose: 100 mls/hr Insulin Aspart (Novolog Vial Sliding Scale -) 1 vial SQ [facility]; Protocol Last Admin: 12/26/19 11:27 Dose: 4 units Lisinopril (Prinivil) 10 mg PO DAILY [facility] Last Admin: 12/26/19 11:26 Dose: 10 mg Pantoprazole Sodium (Protonix -) 40 mg PO DAILY [facility] Last Admin: 12/26/19 11:27 Dose: 40 mg - Objective Vital Signs: Vital Signs Temperature 98.9 F 12/26/19 08:40 Pulse Rate 105 H 12/26/19 08:40 Respiratory Rate 20 12/26/19 09:00 Blood Pressure 129/72 12/26/19 08:40 O2 Sat by Pulse Oximetry (%) 99 12/26/19 09:47 Constitutional: Yes: No Distress, Calm, Obese Cardiovascular: Yes: S1, S2 Respiratory: Yes: Regular, CTA Bilaterally Gastrointestinal: Yes: Normal Bowel Sounds, Soft Musculoskeletal: Yes: WNL Extremities: Yes: WNL Neurological: Yes: Alert, Oriented Psychiatric: Yes: Alert, Oriented Labs: CBC, BMP 12/25/19 10:20 12/25/19 14:10 INR, PTT INR 1.18 (0.83-1.09) H 12/22/19 11:33 Assessment/Plan Problem List - Problems (1) Atrial fibrillation with rapid ventricular response Code(s): I48.91 - UNSPECIFIED ATRIAL FIBRILLATION (2) ESRD (end stage renal disease) Code(s): N18.6 - END STAGE RENAL DISEASE (3) Hyperkalemia Code(s): E87.5 - HYPERKALEMIA (4) New onset atrial fibrillation Code(s): I48.91 - UNSPECIFIED ATRIAL FIBRILLATION (5) Diabetes Code(s): E11.9 - TYPE 2 DIABETES MELLITUS WITHOUT COMPLICATIONS Qualifiers: Diabetes mellitus assisted insulin use: unspecified race steward insulin use 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 male with PMH of ESRD on HD, obesity, DM, CHF, PVD, OM s/p Rt 5th toe amp, SVT/PSVT presented to the ER with fever that began during HD the day before associated with generalized weakness and body aches Sepsis Bacteremia Fever Leukocytosis New Onset AFIB ESRD on HD DM PVD Obesity CHF Hx of OM/toe plan continue abx wound care
--- NOTE | 2019-12-26 19:36 | PN ---
Progress Note, Physician - Current Medication List Current Medications: Active Medications Acetaminophen (Tylenol -) 650 mg PO Q6H PRN PRN Reason: FEVER Last Admin: 12/26/19 08:48 Dose: 650 mg Apixaban (Eliquis -) 5 mg PO BID [facility] Last Admin: 12/26/19 12:16 Dose: 5 mg Atorvastatin Calcium (Lipitor -) 40 mg PO HS [facility] Last Admin: 12/25/19 22:17 Dose: 40 mg Carvedilol (Coreg -) 25 mg PO BID [facility] Last Admin: 12/26/19 11:27 Dose: 25 mg Cinacalcet (Sensipar -) 60 mg PO DAILY [facility] Last Admin: 12/26/19 11:27 Dose: 60 mg Epoetin Lenny (Procrit -) 10,000 unit SQ ONCE ONE Stop: 12/27/19 13:21 Cefazolin Sodium 1 gm/ (Dextrose) 50 mls @ 100 mls/hr IVPB DAILY [facility] Last Admin: 12/26/19 11:27 Dose: 100 mls/hr Insulin Aspart (Novolog Vial Sliding Scale -) 1 vial SQ ACHS [facility]; Protocol Last Admin: 12/26/19 17:26 Dose: 2 units Lisinopril (Prinivil) 10 mg PO DAILY [facility] Last Admin: 12/26/19 11:26 Dose: 10 mg Pantoprazole Sodium (Protonix -) 40 mg PO DAILY [facility] Last Admin: 12/26/19 11:27 Dose: 40 mg - Objective Vital Signs: Vital Signs Temperature 98.1 F 12/26/19 18:00 Pulse Rate 101 H 12/26/19 18:00 Respiratory Rate 20 12/26/19 18:00 Blood Pressure 148/87 12/26/19 18:00 O2 Sat by Pulse Oximetry (%) 99 12/26/19 09:47 Labs: CBC, BMP 12/25/19 10:20 12/25/19 14:10 INR, PTT INR 1.18 (0.83-1.09) H 12/22/19 11:33 Problem List - Problems (1) Abscess Code(s): L02.91 - CUTANEOUS ABSCESS, UNSPECIFIED (2) Sepsis Code(s): A41.9 - SEPSIS, UNSPECIFIED ORGANISM Qualifiers: Sepsis type: sepsis due to unspecified organism Qualified Code(s): A41.9 - Sepsis, unspecified organism (3) Weakness Code(s): R53.1 - WEAKNESS (4) ESRD (end stage renal disease) Code(s): N18.6 - END STAGE RENAL DISEASE (5) New onset atrial fibrillation Code(s): I48.91 - UNSPECIFIED ATRIAL FIBRILLATION (6) HTN (hypertension) Code(s): I10 - ESSENTIAL (PRIMARY) HYPERTENSION (7) Diabetes Code(s): E11.9 - TYPE 2 DIABETES MELLITUS WITHOUT COMPLICATIONS Qualifiers: Diabetes mellitus terminal gauger supervisor insulin use: unspecified terminal gauger supervisor insulin use status Diabetes mellitus complication status: with circulatory complication (8) Obesity Code(s): E66.9 - OBESITY, UNSPECIFIED
[2019-12-26] MEDS: ATORVASTATIN CA 40 MG TABLET (FP) PO SCH (23:43)
[2019-12-27] MEDS: INSULIN SLIDING SCALE (NOVOLOG) 1 VIAL SQ SCH ×4 (06:25→22:09)
[2019-12-27] MEDS ORDERED: PT OWN MED DRAWER 7, Y5N ONE (09:57)
[2019-12-27] MEDS ORDERED: ceFAZolin SODIUM 1 GM VIAL ONE (09:57)
[2019-12-27] MEDS ORDERED: DEXTROSE 5%-WATER - 50 ML IVPB ONE (09:57)
[2019-12-27] MEDS: CEFAZOLIN 1 GM in DEXTROSE 5%-WATER - 50 ML IVPB SCH (10:21)
[2019-12-27] MEDS: PANTOPRAZOLE 40 MG TABLET PO SCH (10:22)
[2019-12-27] MEDS: CARVEDILOL 25 MG TABLET (FP) PO SCH ×2 (10:23→22:01)
[2019-12-27] MEDS: APIXABAN 2.5 MG TABLET PO SCH ×2 (10:28→22:01)
[2019-12-27] MEDS: LISINOPRIL 5 MG TABLET (FP) PO SCH (10:29)
[2019-12-27] MEDS: CINACALCET HCL 30 MG TAB (FP) PO SCH (10:29)
[2019-12-27] MEDS ORDERED: EPOETIN ALFA 10,000 UNIT/1 ML VIAL IVPUSH ONE (10:45)
--- NOTE | 2019-12-27 11:08 | PN ---
Progress Note, Physician History of Present Illness: pulmonary alert,comfortable on HD,-sob - Current Medication List Current Medications: Active Medications Acetaminophen (Tylenol -) 650 mg PO Q6H PRN PRN Reason: FEVER Last Admin: 12/26/19 23:51 Dose: 650 mg Apixaban (Eliquis -) 5 mg PO BID [facility] Last Admin: 12/27/19 10:28 Dose: 5 mg Atorvastatin Calcium (Lipitor -) 40 mg PO HS [facility] Last Admin: 12/26/19 23:43 Dose: 40 mg Carvedilol (Coreg -) 25 mg PO BID [facility] Last Admin: 12/27/19 10:23 Dose: 25 mg Cinacalcet (Sensipar -) 60 mg PO DAILY [facility] Last Admin: 12/27/19 10:29 Dose: 60 mg Cefazolin Sodium 1 gm/ (Dextrose) 50 mls @ 100 mls/hr IVPB DAILY [facility] Last Admin: 12/27/19 10:21 Dose: 100 mls/hr Insulin Aspart (Novolog Vial Sliding Scale -) 1 vial SQ ACHS [facility]; Protocol Last Admin: 12/27/19 06:25 Dose: 2 units Lisinopril (Prinivil) 10 mg PO DAILY [facility] Last Admin: 12/27/19 10:29 Dose: 10 mg Pantoprazole Sodium (Protonix -) 40 mg PO DAILY [facility] Last Admin: 12/27/19 10:22 Dose: 40 mg - Objective Vital Signs: Vital Signs Temperature 98.7 F 12/27/19 06:00 Pulse Rate 116 H 12/27/19 06:00 Respiratory Rate 18 12/27/19 06:00 Blood Pressure 127/51 L 12/27/19 06:00 O2 Sat by Pulse Oximetry (%) 95 12/26/19 22:00 Constitutional: Yes: Well Nourished, Calm Eyes: Yes: WNL HENT: Yes: WNL Neck: Yes: WNL Cardiovascular: Yes: Pulse Irregular, S1, S2 Respiratory: Yes: Diminished Gastrointestinal: Yes: Normal Bowel Sounds, Soft Extremities: Yes: WNL Edema: Yes Labs: Assessment/Plan Problem List - Problems (1) Abnormal CT of the chest Code(s): R93.89 - ABNORMAL FINDINGS ON DX IMAGING OF OTH BODY STRUCTURES (2) Abscess Code(s): L02.91 - CUTANEOUS ABSCESS, UNSPECIFIED (3) Chest wall pain Code(s): R07.89 - OTHER CHEST PAIN (4) ESRD (end stage renal disease) Code(s): N18.6 - END STAGE RENAL DISEASE (5) New onset atrial fibrillation Code(s): I48.91 - UNSPECIFIED ATRIAL FIBRILLATION (6) Obesity Code(s): E66.9 - OBESITY, UNSPECIFIED (7) Weakness Code(s): R53.1 - WEAKNESS (8) Diabetes Code(s): E11.9 - TYPE 2 DIABETES MELLITUS WITHOUT COMPLICATIONS Qualifiers: Diabetes mellitus correction insulin use: unspecified terminal makeup operator insulin use status Diabetes mellitus complication status: with circulatory complication (9) Dialysis patient Code(s): Z99.2 - DEPENDENCE ON RENAL DIALYSIS (10) HLD (hyperlipidemia) Code(s): E78.5 - HYPERLIPIDEMIA, UNSPECIFIED (11) HTN (hypertension) Code(s): I10 - ESSENTIAL (PRIMARY) HYPERTENSION (12) Abscess of chest wall Code(s): L02.213 - CUTANEOUS ABSCESS OF CHEST WALL 13. STAPH BACTEREMIA 14.A-FIB Assessment/Plan LEFT CHEST WALL ABSCESS S/P DEBRIDEMENT ABNORMALITIES ON LUNG CT APPEAR CHRONIC AND SUBPLEURAL REPEAT CT CHEST AN OUTPATIENT IN 2 MONTHS IF INCREASE IN SIZE WOULD REQUEST PET SCAN CONTINUE ABX PER ID AC HD PER RENAL DR ORTEZ
--- NOTE | 2019-12-27 12:17 | PN ---
Progress Note, Physician Chief Complaint: The patient seen in his room. On bed. Afebrile. Feels weak. Dressings over the left chest in place. Has pain. No discharge seen through the dressing. Dr. Hernandez's notes noted. - Current Medication List Current Medications: Active Medications Acetaminophen (Tylenol -) 650 mg PO Q6H PRN PRN Reason: FEVER Last Admin: 12/26/19 23:51 Dose: 650 mg Apixaban (Eliquis -) 5 mg PO BID [facility] Last Admin: 12/27/19 10:28 Dose: 5 mg Atorvastatin Calcium (Lipitor -) 40 mg PO HS [facility] Last Admin: 12/26/19 23:43 Dose: 40 mg Carvedilol (Coreg -) 25 mg PO BID [facility] Last Admin: 12/27/19 10:23 Dose: 25 mg Cinacalcet (Sensipar -) 60 mg PO DAILY [facility] Last Admin: 12/27/19 10:29 Dose: 60 mg Cefazolin Sodium 1 gm/ (Dextrose) 50 mls @ 100 mls/hr IVPB DAILY [facility] Last Admin: 12/27/19 10:21 Dose: 100 mls/hr Insulin Aspart (Novolog Vial Sliding Scale -) 1 vial SQ ACHS [facility]; Protocol Last Admin: 12/27/19 06:25 Dose: 2 units Lisinopril (Prinivil) 10 mg PO DAILY [facility] Last Admin: 12/27/19 10:29 Dose: 10 mg Pantoprazole Sodium (Protonix -) 40 mg PO DAILY [facility] Last Admin: 12/27/19 10:22 Dose: 40 mg - Objective Vital Signs: Vital Signs Temperature 98.8 F 12/27/19 11:25 Pulse Rate 85 12/27/19 12:00 Respiratory Rate 18 12/27/19 12:00 Blood Pressure 121/77 12/27/19 12:00 O2 Sat by Pulse Oximetry (%) 95 12/26/19 22:00 Constitutional: Yes: Calm Eyes: Yes: Conjunctiva Clear HENT: Yes: Normocephalic Neck: Yes: Trachea Midline Cardiovascular: Yes: Regular Rate and Rhythm, S1, S2 Respiratory: Yes: CTA Bilaterally Gastrointestinal: Yes: Abdomen, Obese Edema: Yes Edema: LLE: Trace, RLE: Trace Neurological: Yes: Alert, Oriented Labs: CBC, BMP 12/25/19 10:20 12/25/19 14:10 INR, PTT INR 1.18 (0.83-1.09) H 12/22/19 11:33 Problem List - Problems (1) Abscess Code(s): L02.91 - CUTANEOUS ABSCESS, UNSPECIFIED (2) Abscess of chest wall Code(s): L02.213 - CUTANEOUS ABSCESS OF CHEST WALL (3) Amputated toe of right foot Code(s): S98.131A - COMPLETE TRAUMATIC AMPUTATION OF ONE RIGHT LESSER TOE, INIT (4) Atrial fibrillation with rapid ventricular response Code(s): I48.91 - UNSPECIFIED ATRIAL FIBRILLATION (5) ESRD (end stage renal disease) Code(s): N18.6 - END STAGE RENAL DISEASE (6) Obesity Code(s): E66.9 - OBESITY, UNSPECIFIED (7) Systolic CHF Code(s): I50.20 - UNSPECIFIED SYSTOLIC (CONGESTIVE) HEART FAILURE (8) Type 2 diabetes mellitus with foot ulcer Code(s): E11.621 - TYPE 2 DIABETES MELLITUS WITH FOOT ULCER; L97.509 - NON- PRESSURE CHRONIC ULCER OTH PRT UNSP FOOT W UNSP SEVERITY Assessment/Plan 64 year old gentleman with history of ESRD on HD (MWF), DM, PVD Osteomylitis, hx of SVT/PSVT who presented from the dialysis center with fever and tachycardia. Found to have right upper chest, subclavicular abscess. 1. Chest wall abscess. 2. Hyperkalemia 3. Tachycardia/Afib with RVR 4. ESRD on HD 5. DM 6. Hypertension HD today in his room. Orders written and reviewed with the HDRN. To continue the Abx as ordered. Elizabet Arteaga MD
--- NOTE | 2019-12-27 13:02 | PN ---
Progress Note, Physician - Current Medication List Current Medications: Active Medications Acetaminophen (Tylenol -) 650 mg PO Q6H PRN PRN Reason: FEVER Last Admin: 12/26/19 23:51 Dose: 650 mg Apixaban (Eliquis -) 5 mg PO BID [facility] Last Admin: 12/27/19 10:28 Dose: 5 mg Atorvastatin Calcium (Lipitor -) 40 mg PO HS [facility] Last Admin: 12/26/19 23:43 Dose: 40 mg Carvedilol (Coreg -) 25 mg PO BID [facility] Last Admin: 12/27/19 10:23 Dose: 25 mg Cinacalcet (Sensipar -) 60 mg PO DAILY [facility] Last Admin: 12/27/19 10:29 Dose: 60 mg Cefazolin Sodium 1 gm/ (Dextrose) 50 mls @ 100 mls/hr IVPB DAILY [facility] Last Admin: 12/27/19 10:21 Dose: 100 mls/hr Insulin Aspart (Novolog Vial Sliding Scale -) 1 vial SQ ACHS [facility]; Protocol Last Admin: 12/27/19 06:25 Dose: 2 units Lisinopril (Prinivil) 10 mg PO DAILY [facility] Last Admin: 12/27/19 10:29 Dose: 10 mg Pantoprazole Sodium (Protonix -) 40 mg PO DAILY [facility] Last Admin: 12/27/19 10:22 Dose: 40 mg - Objective Vital Signs: Vital Signs Temperature 98.8 F 12/27/19 11:25 Pulse Rate 85 12/27/19 12:00 Respiratory Rate 18 12/27/19 12:00 Blood Pressure 121/77 12/27/19 12:00 O2 Sat by Pulse Oximetry (%) 95 12/26/19 22:00 Labs: CBC, BMP 12/25/19 10:20 12/25/19 14:10 INR, PTT INR 1.18 (0.83-1.09) H 12/22/19 11:33
[2019-12-27] MEDS: ATORVASTATIN CA 40 MG TABLET (FP) PO SCH (22:01)
[2019-12-27] MEDS: ACETAMINOPHEN 325 MG TABLET (FP) PO PRN (22:05)
--- NOTE | 2019-12-27 23:31 | PN ---
Progress Note, Physician History of Present Illness: No new complaints - Current Medication List Current Medications: Active Medications Acetaminophen (Tylenol -) 650 mg PO Q6H PRN PRN Reason: FEVER Last Admin: 12/27/19 22:05 Dose: 650 mg Apixaban (Eliquis -) 5 mg PO BID [facility] Last Admin: 12/27/19 22:01 Dose: 5 mg Atorvastatin Calcium (Lipitor -) 40 mg PO HS [facility] Last Admin: 12/27/19 22:01 Dose: 40 mg Carvedilol (Coreg -) 25 mg PO BID [facility] Last Admin: 12/27/19 22:01 Dose: 25 mg Cinacalcet (Sensipar -) 60 mg PO DAILY [facility] Last Admin: 12/27/19 10:29 Dose: 60 mg Cefazolin Sodium 1 gm/ (Dextrose) 50 mls @ 100 mls/hr IVPB DAILY [facility] Last Admin: 12/27/19 10:21 Dose: 100 mls/hr Insulin Aspart (Novolog Vial Sliding Scale -) 1 vial SQ ACHS [facility]; Protocol Last Admin: 12/27/19 22:09 Dose: 2 units Lisinopril (Prinivil) 10 mg PO DAILY [facility] Last Admin: 12/27/19 10:29 Dose: 10 mg Pantoprazole Sodium (Protonix -) 40 mg PO DAILY [facility] Last Admin: 12/27/19 10:22 Dose: 40 mg - Objective Vital Signs: Vital Signs Temperature 97.8 F 12/27/19 14:00 Pulse Rate 79 12/27/19 15:35 Respiratory Rate 18 12/27/19 15:35 Blood Pressure 120/66 12/27/19 15:35 O2 Sat by Pulse Oximetry (%) 97 12/27/19 10:00 Constitutional: Yes: Obese Neck: Yes: WNL, Supple Cardiovascular: Yes: WNL, Regular Rate and Rhythm Respiratory: Yes: WNL, Regular, CTA Bilaterally Gastrointestinal: Yes: WNL, Normal Bowel Sounds, Soft, Abdomen, Obese Extremities: Yes: Other (LUE fistula) Labs: CBC, BMP 12/25/19 10:20 12/25/19 14:10 INR, PTT INR 1.18 (0.83-1.09) H 12/22/19 11:33 Problem List - Problems (1) Abscess Assessment/Plan: CT scan chest showed Lt upper 1/3 pectoralis muscle swelling w/ foci air/gas and ?pulmonary wedge shaped ? infarct S/P I&D of lt ant chest wall Follow cultures Cont IV ancef Code(s): L02.91 - CUTANEOUS ABSCESS, UNSPECIFIED (2) Sepsis Assessment/Plan: Due to staph aureus bacteremia Repeat BC remain negative Cont IV naficillin/zosyn w/ dialysis Code(s): A41.9 - SEPSIS, UNSPECIFIED ORGANISM Qualifiers: Sepsis type: sepsis due to unspecified organism Qualified Code(s): A41.9 - Sepsis, unspecified organism (3) Weakness Assessment/Plan: Ct scan head was unremarkable Neuro consult noted ?femoral neuropathy Code(s): R53.1 - WEAKNESS (4) ESRD (end stage renal disease) Assessment/Plan: Pt on dialysis As per renal Code(s): N18.6 - END STAGE RENAL DISEASE (5) New onset atrial fibrillation Assessment/Plan: ?Due to sepsis/fever/Pt is allergic to pork therefore cannot use heparin Cont eliquis Cont metoprolol/cardizem Code(s): I48.91 - UNSPECIFIED ATRIAL FIBRILLATION (6) HTN (hypertension) Code(s): I10 - ESSENTIAL (PRIMARY) HYPERTENSION (7) Diabetes Assessment/Plan: Cont sliding scale w/ coverage Code(s): E11.9 - TYPE 2 DIABETES MELLITUS WITHOUT COMPLICATIONS Qualifiers: Diabetes mellitus fpc insulin use: 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
[2019-12-28] MEDS: INSULIN SLIDING SCALE (NOVOLOG) 1 VIAL SQ SCH ×4 (06:31→22:07)
[2019-12-28 07:23] LABS: BASO % 0.9 % (0-2.0); EOS % 2.6 % (0-4.5); HEMATOCRIT 28.1 % (35.4-49); HEMOGLOBIN 9.3 GM/dL (11.7-16.9); LYMPH % 18.3 % (8-40); MCH 29.1 pg (25.7-33.7); MCHC 33.3 g/dl (32.0-35.9); MEAN CELL VOLUME 87.5 fl (80-96); MEAN PLT VOLUME 9.7 fl (7.5-11.1); MONO % 13.2 % (3.8-10.2); PLATELET COUNT 221 K/MM3 (134-434); RBC 3.21 M/mm3 (4.00-5.60); RDW 16.3 % (11.9-15.9); WHITE BLOOD COUNT 7.3 K/mm3 (4.0-10.0)
[2019-12-28 07:46] LABS: ALK PHOS 129 U/L (45-117); ANION GAP 7 MMOL/L (8-16); BILIRUBIN,TOTAL 1.1 mg/dL (0.2-1); BLOOD UREA NITROGEN 24.4 mg/dL (7-18); CALCIUM 8.4 mg/dL (8.5-10.1); CHLORIDE 100 mmol/L (98-107); CO2 32 mmol/L (21-32); CREATININE 5.8 mg/dL (0.55-1.3); GLUCOSE,RANDOM 165 mg/dL (74-106); POTASSIUM 4.4 mmol/L (3.5-5.1); SGOT/AST 13 U/L (15-37); SGPT/ALT < 6 U/L (13-61); SODIUM 139 mmol/L (136-145); TOT PROT 7.4 g/dl (6.4-8.2)
[2019-12-28] MEDS ORDERED: ceFAZolin SODIUM 1 GM VIAL ONE (09:24)
[2019-12-28] MEDS ORDERED: DEXTROSE 5%-WATER - 50 ML IVPB ONE (09:24)
[2019-12-28] MEDS ORDERED: PT OWN MED DRAWER 7, Y5N ONE (09:26)
[2019-12-28] MEDS: CEFAZOLIN 1 GM in DEXTROSE 5%-WATER - 50 ML IVPB SCH (09:44)
[2019-12-28] MEDS: APIXABAN 2.5 MG TABLET PO SCH ×2 (09:44→22:06)
[2019-12-28] MEDS: LISINOPRIL 5 MG TABLET (FP) PO SCH (09:44)
[2019-12-28] MEDS: PANTOPRAZOLE 40 MG TABLET PO SCH (09:45)
[2019-12-28] MEDS: CINACALCET HCL 30 MG TAB (FP) PO SCH (09:45)
[2019-12-28] MEDS: CARVEDILOL 25 MG TABLET (FP) PO SCH ×2 (09:45→22:06)
--- NOTE | 2019-12-28 10:44 | PN ---
Progress Note, Physician History of Present Illness: patient stable no issues - Current Medication List Current Medications: Active Medications Acetaminophen (Tylenol -) 650 mg PO Q6H PRN PRN Reason: FEVER Last Admin: 12/27/19 22:05 Dose: 650 mg Apixaban (Eliquis -) 5 mg PO BID [facility] Last Admin: 12/28/19 09:44 Dose: 5 mg Atorvastatin Calcium (Lipitor -) 40 mg PO HS [facility] Last Admin: 12/27/19 22:01 Dose: 40 mg Carvedilol (Coreg -) 25 mg PO BID [facility] Last Admin: 12/28/19 09:45 Dose: 25 mg Cinacalcet (Sensipar -) 60 mg PO DAILY [facility] Last Admin: 12/28/19 09:45 Dose: 60 mg Cefazolin Sodium 1 gm/ (Dextrose) 50 mls @ 100 mls/hr IVPB DAILY [facility] Last Admin: 12/28/19 09:44 Dose: 100 mls/hr Insulin Aspart (Novolog Vial Sliding Scale -) 1 vial SQ ACHS [facility]; Protocol Last Admin: 12/28/19 06:31 Dose: 54 units Lisinopril (Prinivil) 10 mg PO DAILY [facility] Last Admin: 12/28/19 09:44 Dose: 10 mg Pantoprazole Sodium (Protonix -) 40 mg PO DAILY [facility] Last Admin: 12/28/19 09:45 Dose: 40 mg - Objective Vital Signs: Vital Signs Temperature 98.3 F 12/28/19 08:41 Pulse Rate 104 H 12/28/19 08:41 Respiratory Rate 17 12/28/19 08:41 Blood Pressure 131/79 12/28/19 08:41 O2 Sat by Pulse Oximetry (%) 98 12/27/19 22:00 Constitutional: Yes: No Distress, Calm Cardiovascular: Yes: S1, S2 Respiratory: Yes: Regular, CTA Bilaterally Gastrointestinal: Yes: Normal Bowel Sounds, Soft Musculoskeletal: Yes: WNL Extremities: Yes: WNL Neurological: Yes: Alert, Oriented Psychiatric: Yes: Alert, Oriented Labs: CBC, BMP 12/28/19 05:45 12/28/19 05:45 INR, PTT INR 1.18 (0.83-1.09) H 12/22/19 11:33 Assessment/Plan Problem List - Problems (1) Atrial fibrillation with rapid ventricular response Code(s): I48.91 - UNSPECIFIED ATRIAL FIBRILLATION (2) ESRD (end stage renal disease) Code(s): N18.6 - END STAGE RENAL DISEASE (3) Hyperkalemia Code(s): E87.5 - HYPERKALEMIA (4) New onset atrial fibrillation Code(s): I48.91 - UNSPECIFIED ATRIAL FIBRILLATION (5) Diabetes Code(s): E11.9 - TYPE 2 DIABETES MELLITUS WITHOUT COMPLICATIONS Qualifiers: Diabetes mellitus shelter insulin use: unspecified shelter insulin use 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 male with PMH of ESRD on HD, obesity, DM, CHF, PVD, OM s/p Rt 5th toe amp, SVT/PSVT presented to the ER with fever that began during HD the day before associated with generalized weakness and body aches Sepsis Bacteremia Fever Leukocytosis New Onset AFIB ESRD on HD DM PVD Obesity CHF Hx of OM/toe plan continue abx wound care will need another 2 days of abx rest as per he team
--- NOTE | 2019-12-28 11:01 | PN ---
Progress Note, Physician History of Present Illness: pulmonary alert,comfortable,-sob,less left sised chest discomfort - Current Medication List Current Medications: Active Medications Acetaminophen (Tylenol -) 650 mg PO Q6H PRN PRN Reason: FEVER Last Admin: 12/27/19 22:05 Dose: 650 mg Apixaban (Eliquis -) 5 mg PO BID [facility] Last Admin: 12/28/19 09:44 Dose: 5 mg Atorvastatin Calcium (Lipitor -) 40 mg PO HS [facility] Last Admin: 12/27/19 22:01 Dose: 40 mg Carvedilol (Coreg -) 25 mg PO BID [facility] Last Admin: 12/28/19 09:45 Dose: 25 mg Cinacalcet (Sensipar -) 60 mg PO DAILY [facility] Last Admin: 12/28/19 09:45 Dose: 60 mg Cefazolin Sodium 1 gm/ (Dextrose) 50 mls @ 100 mls/hr IVPB DAILY [facility] Last Admin: 12/28/19 09:44 Dose: 100 mls/hr Insulin Aspart (Novolog Vial Sliding Scale -) 1 vial SQ ACHS [facility]; Protocol Last Admin: 12/28/19 06:31 Dose: 54 units Lisinopril (Prinivil) 10 mg PO DAILY [facility] Last Admin: 12/28/19 09:44 Dose: 10 mg Pantoprazole Sodium (Protonix -) 40 mg PO DAILY [facility] Last Admin: 12/28/19 09:45 Dose: 40 mg - Objective Vital Signs: Vital Signs Temperature 98.3 F 12/28/19 08:41 Pulse Rate 104 H 12/28/19 08:41 Respiratory Rate 17 12/28/19 08:41 Blood Pressure 131/79 12/28/19 08:41 O2 Sat by Pulse Oximetry (%) 99 12/28/19 10:00 Constitutional: Yes: Well Nourished, Calm Eyes: Yes: WNL HENT: Yes: WNL Neck: Yes: WNL Cardiovascular: Yes: Pulse Irregular, S1, S2 Respiratory: Yes: CTA Bilaterally Gastrointestinal: Yes: Normal Bowel Sounds, Soft Extremities: Yes: WNL Edema: Yes Labs: CBC, BMP 12/28/19 05:45 12/28/19 05:45 INR, PTT INR 1.18 (0.83-1.09) H 12/22/19 11:33 Assessment/Plan Problem List - Problems (1) Abnormal CT of the chest Code(s): R93.89 - ABNORMAL FINDINGS ON DX IMAGING OF OTH BODY STRUCTURES (2) Abscess Code(s): L02.91 - CUTANEOUS ABSCESS, UNSPECIFIED (3) Chest wall pain Code(s): R07.89 - OTHER CHEST PAIN (4) ESRD (end stage renal disease) Code(s): N18.6 - END STAGE RENAL DISEASE (5) New onset atrial fibrillation Code(s): I48.91 - UNSPECIFIED ATRIAL FIBRILLATION (6) Obesity Code(s): E66.9 - OBESITY, UNSPECIFIED (7) Weakness Code(s): R53.1 - WEAKNESS (8) Diabetes Code(s): E11.9 - TYPE 2 DIABETES MELLITUS WITHOUT COMPLICATIONS Qualifiers: Diabetes mellitus fdc insulin use: unspecified 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 STAPH BACTEREMIA 14.A-FIB Assessment/Plan LEFT CHEST WALL ABSCESS S/P DEBRIDEMENT ABNORMALITIES ON LUNG CT APPEAR CHRONIC AND SUBPLEURAL REPEAT CT CHEST AN OUTPATIENT IN 2 MONTHS IF INCREASE IN SIZE WOULD REQUEST PET SCAN CONTINUE ABX PER ID AC HD PER RENAL DR ORTEZ
[2019-12-28] MEDS ORDERED: INSULIN (NOVOLOG) ASPART 100 UNITS/ML 10ML VIAL ONE (11:23)
[2019-12-28] MEDS ORDERED: EPOETIN ALFA-EPBX 2,000 UNIT/ML VIAL SQ SCH (12:30)
[2019-12-28] MEDS ORDERED: EPOETIN ALFA-EPBX 40,000 UNIT/ML VIAL SQ SCH (14:30)
[2019-12-28] MEDS ORDERED: EPOETIN ALFA 20,000 UNIT/1 ML VIAL SQ SCH ×2 (14:38→19:30)
--- NOTE | 2019-12-28 19:30 | PN ---
Progress Note, Physician History of Present Illness: Pt seen and examined at bedside. He is awake and alert. He denies shortness of breath. - Current Medication List Current Medications: Active Medications Acetaminophen (Tylenol -) 650 mg PO Q6H PRN PRN Reason: FEVER Last Admin: 12/27/19 22:05 Dose: 650 mg Apixaban (Eliquis -) 5 mg PO BID [facility] Last Admin: 12/28/19 09:44 Dose: 5 mg Atorvastatin Calcium (Lipitor -) 40 mg PO HS [facility] Last Admin: 12/27/19 22:01 Dose: 40 mg Carvedilol (Coreg -) 25 mg PO BID [facility] Last Admin: 12/28/19 09:45 Dose: 25 mg Cinacalcet (Sensipar -) 60 mg PO DAILY [facility] Last Admin: 12/28/19 09:45 Dose: 60 mg Epoetin Lenny (Procrit -) 20,000 unit SQ Q2D [facility] Stop: 01/05/20 10:01 Cefazolin Sodium 1 gm/ (Dextrose) 50 mls @ 100 mls/hr IVPB DAILY [facility] Last Admin: 12/28/19 09:44 Dose: 100 mls/hr Insulin Aspart (Novolog Vial Sliding Scale -) 1 vial SQ ACHS [facility]; Protocol Last Admin: 12/28/19 18:25 Dose: 2 units Lisinopril (Prinivil) 10 mg PO DAILY [facility] Last Admin: 12/28/19 09:44 Dose: 10 mg Pantoprazole Sodium (Protonix -) 40 mg PO DAILY [facility] Last Admin: 12/28/19 09:45 Dose: 40 mg - Objective Vital Signs: Vital Signs Temperature 98 F 12/28/19 13:48 Pulse Rate 112 H 12/28/19 13:48 Respiratory Rate 18 12/28/19 13:48 Blood Pressure 133/79 12/28/19 13:48 O2 Sat by Pulse Oximetry (%) 98 12/28/19 12:12 Constitutional: Yes: Calm Eyes: Yes: Conjunctiva Clear HENT: Yes: Atraumatic Neck: Yes: Supple Cardiovascular: Yes: S1, S2 Respiratory: Yes: CTA Bilaterally Gastrointestinal: Yes: Soft, Abdomen, Obese Genitourinary: Yes: WNL Edema: Yes Edema: LLE: Trace, RLE: Trace Neurological: Yes: Oriented Psychiatric: Yes: Oriented Labs: CBC, BMP 12/28/19 05:45 12/28/19 05:45 INR, PTT INR 1.18 (0.83-1.09) H 12/22/19 11:33 Problem List - Problems (1) ESRD (end stage renal disease) Code(s): N18.6 - END STAGE RENAL DISEASE Assessment/Plan Current Medications Generic Name Dose Route Start Last Admin Trade Name Freq PRN Reason Stop Dose Admin Acetaminophen 650 mg 12/22/19 10:00 12/27/19 22:05 Tylenol - PO 650 mg Q6H PRN Administration FEVER Apixaban 5 mg 12/25/19 21:38 12/28/19 09:44 Eliquis - PO 5 mg BID [facility] Administration Atorvastatin Calcium 40 mg 12/17/19 22:00 12/27/19 22:01 Lipitor - PO 40 mg HS [facility] Administration Carvedilol 25 mg 12/17/19 22:00 12/28/19 09:45 Coreg - PO 25 mg BID [facility] Administration Cinacalcet 60 mg 12/18/19 10:00 12/28/19 09:45 Sensipar - PO 60 mg DAILY [facility] Administration Epoetin Lenny 20,000 unit 12/28/19 19:30 Procrit - SQ 01/05/20 10:01 Q2D MARK Cefazolin Sodium 1 gm/ 50 mls @ 100 mls/hr 12/22/19 10:00 12/28/19 09:44 Dextrose IVPB 100 mls/hr DAILY [facility] Administration Insulin Aspart 1 vial 12/17/19 22:00 12/28/19 18:25 Novolog Vial Sliding Scale - SQ 2 units ACHS [facility] Administration Protocol Lisinopril 10 mg 12/25/19 10:00 12/28/19 09:44 Prinivil PO 10 mg DAILY [facility] Administration Pantoprazole Sodium 40 mg 12/18/19 10:00 12/28/19 09:45 Protonix - PO 40 mg DAILY [facility] Administration Coverage for Dr Pedro Laboratory Tests 12/19/19 05:30 Iron 54 TIBC 309 Iron Saturation 17 L Unsaturated IBC 255 Ferritin 2800.1 H 1. Fever (Influenza negative, CXR w/o infiltrates) 2. Hyperkalemia 3. Tachycardia/Afib with RVR 4. ESRD on HD 5. DM 6. Hypertension 7. bacteremia 8. left chest wall mass/lesion Plan - HD tomorrow - cont epogen - ferritin elevated - abx per medical team - HD today (on Cefazolin as per ID, on discharge can be on Cefazolin 2g/2g/3g with dialysis) - cont wound care and dressing changes - renal diet - 1.2 l fluid restriction
--- NOTE | 2019-12-28 20:42 | CONSULT ---
Consult - text type - Consultation Consultation Note: NEUROLOGY FOLLOW-UP: Events reviewed, patient examined. Left supraclavicular cord turned out to be a chest wall abscess, now much improved on antibiotics. No left should pain or left arm complaints. Patient claims he is walking with walker and assist. CT/MRI neg for stroke.. EXAM: Awake, alert. MS/speech: Normal Full goss and EOM's. No facial weakness. No drift. Normal arm strength Left leg normal Right hip flexion 3/5. R knee extension 3/5. Right hip adduction, ankle dorsiflexion 5/5. Absent Right KJ 1+ on left. Absent AJ's Great difficulty standing with assistance due to proximal right leg weakness. IMP: Right Femoral Mononeuropathy. SUGGEST: Continue apixaban vs DVT Continue aggressive PT- Patient will benefit from out pt rebab when abscess has resolved Knee brace may help with weight-baring. Thank you very much, Zaki Devine MD
--- NOTE | 2019-12-28 21:42 | PN ---
Progress Note (short form) - Note Progress Note: PAtient seen and examined LEft infraclavicular abscess drainage Denies any complaints Last Vital Signs Temp Pulse Resp BP Pulse Ox 98.1 F 111 H 20 127/79 97 12/25/19 22:00 12/25/19 22:00 12/25/19 22:00 12/25/19 22:00 12/25/19 22:00 Cor: RSR, No murmurs, No gallops Lungs: Clear to P&A Abd: Soft, Normal bowel sounds, No organomegaly Ext:No significant edema Labs/Meds reviewed A/P 64yM w PMHx ESRD on Hd (MWF), obesity, nonsustained/parxysmal SVT, HTN, IDDM, ESBL osteomyelitis, PVD presenting w 1d fever, tachycardia, body aches and 1mo diarrhea. New onset afib/.RVR 1. Fever / S. aureus bacteremia 2. Hyperkalemia 3. Tachycardia/Afib with RVR 4. ESRD on HD 5. DM 6. Hypertension 7. Rt. femoral mononeuropathy 8. Jehovahs witness Infection of left pectoralis major --on antibiotcs per ID and s/p debridement x 2 --last on 12/20/19 Afib/elevated INR Coumadin was held s/p vit. K 10mg Patient refusing any blood products, even if he were to be in a life threatening situation and was facing imminent . h/o pork intolerance. No allergic symptoms Received heparin at HD Anticoagulation for afib --per cardiology and renal teams Anemia -- suspech anemia of chronic disease-- CKD+ infection. No obvious bleeding JEhovahs witness Dose procrit at dialysis. Discussed with patient pros/cons including thrombotic events, HTN, stroke, CVA. He understands risks/benefits and is agreeable on 12/25 Iron sat 17%, Ferritin 2200 s/o mixed picture discussed with renal team---- procrit dose to be increased at dialysis B12 -2200
[2019-12-28] MEDS: ATORVASTATIN CA 40 MG TABLET (FP) PO SCH (22:06)
--- NOTE | 2019-12-28 23:27 | PN ---
Progress Note, Physician - Current Medication List Current Medications: Active Medications Acetaminophen (Tylenol -) 650 mg PO Q6H PRN PRN Reason: FEVER Last Admin: 12/27/19 22:05 Dose: 650 mg Apixaban (Eliquis -) 5 mg PO BID [facility] Last Admin: 12/28/19 22:06 Dose: 5 mg Atorvastatin Calcium (Lipitor -) 40 mg PO HS [facility] Last Admin: 12/28/19 22:06 Dose: 40 mg Carvedilol (Coreg -) 25 mg PO BID [facility] Last Admin: 12/28/19 22:06 Dose: 25 mg Cinacalcet (Sensipar -) 60 mg PO DAILY [facility] Last Admin: 12/28/19 09:45 Dose: 60 mg Epoetin Lenny (Procrit -) 20,000 unit SQ Q2D [facility] Stop: 01/05/20 10:01 Last Admin: 12/28/19 19:25 Dose: 20,000 unit Epoetin Lenny (Procrit -) 14,000 unit IVPUSH ONCE ONE Stop: 12/29/19 19:32 Cefazolin Sodium 1 gm/ (Dextrose) 50 mls @ 100 mls/hr IVPB DAILY [facility] Last Admin: 12/28/19 09:44 Dose: 100 mls/hr Sodium Chloride (Normal Saline -) 250 mls @ 3,000 mls/hr IV PRN PRN PRN Reason: Hypotension during Dialysis Stop: 12/29/19 19:31 Insulin Aspart (Novolog Vial Sliding Scale -) 1 vial SQ ACHS [facility]; Protocol Last Admin: 12/28/19 22:07 Dose: 4 units Lisinopril (Prinivil) 10 mg PO DAILY [facility] Last Admin: 12/28/19 09:44 Dose: 10 mg Pantoprazole Sodium (Protonix -) 40 mg PO DAILY [facility] Last Admin: 12/28/19 09:45 Dose: 40 mg - Objective Vital Signs: Vital Signs Temperature 98 F 12/28/19 13:48 Pulse Rate 112 H 12/28/19 13:48 Respiratory Rate 18 12/28/19 13:48 Blood Pressure 133/79 12/28/19 13:48 O2 Sat by Pulse Oximetry (%) 98 12/28/19 12:12 Labs: CBC, BMP 12/28/19 05:45 12/28/19 05:45 INR, PTT INR 1.18 (0.83-1.09) H 12/22/19 11:33 Problem List - Problems (1) Abscess Code(s): L02.91 - CUTANEOUS ABSCESS, UNSPECIFIED (2) Sepsis Code(s): A41.9 - SEPSIS, UNSPECIFIED ORGANISM Qualifiers: Sepsis type: sepsis due to unspecified organism Qualified Code(s): A41.9 - Sepsis, unspecified organism (3) Weakness Code(s): R53.1 - WEAKNESS (4) ESRD (end stage renal disease) Code(s): N18.6 - END STAGE RENAL DISEASE (5) New onset atrial fibrillation Code(s): I48.91 - UNSPECIFIED ATRIAL FIBRILLATION (6) HTN (hypertension) Code(s): I10 - ESSENTIAL (PRIMARY) HYPERTENSION (7) Diabetes Code(s): E11.9 - TYPE 2 DIABETES MELLITUS WITHOUT COMPLICATIONS Qualifiers: Diabetes mellitus usp insulin use: unspecified usp insulin use status Diabetes mellitus complication status: with circulatory complication (8) Obesity Code(s): E66.9 - OBESITY, UNSPECIFIED
[2019-12-29] MEDS ORDERED: SODIUM CHLORIDE 250 ML IV PRN (06:38)
[2019-12-29] MEDS: INSULIN SLIDING SCALE (NOVOLOG) 1 VIAL SQ SCH ×3 (07:00→17:23)
[2019-12-29] MEDS ORDERED: EPOETIN ALFA-EPBX 4,000 UNIT, EPOETIN ALFA-EPBX 10,000 UNIT IVPUSH ONE (08:00)
[2019-12-29 08:30] LABS: HEMATOCRIT 26.8 % (35.4-49); HEMOGLOBIN 8.8 GM/dL (11.7-16.9); MCH 28.7 pg (25.7-33.7); MCHC 32.9 g/dl (32.0-35.9); MEAN CELL VOLUME 87.3 fl (80-96); MEAN PLT VOLUME 9.9 fl (7.5-11.1); PLATELET COUNT 190 K/MM3 (134-434); RBC 3.07 M/mm3 (4.00-5.60); RDW 16.5 % (11.9-15.9); WHITE BLOOD COUNT 6.1 K/mm3 (4.0-10.0)
[2019-12-29 09:01] LABS: BLOOD UREA NITROGEN 38.6 mg/dL (7-18); CALCIUM 8.4 mg/dL (8.5-10.1); POTASSIUM 4.3 mmol/L (3.5-5.1)
[2019-12-29 09:05] LABS: CREATININE 7.7 mg/dL (0.55-1.3)
[2019-12-29] MEDS ORDERED: DEXTROSE 5%-WATER - 50 ML IVPB ONE (09:15)
[2019-12-29] MEDS ORDERED: ceFAZolin SODIUM 1 GM VIAL ONE (09:15)
--- NOTE | 2019-12-29 10:02 | PN ---
Progress Note, Physician Chief Complaint: The patient seen in his room.During hemodialysis. On bed. Afebrile. Feels weak. Dressings over the left chest in place. Has pain. No discharge seen through the dressing. Overall reports feeling better. His vital signs are stable - Current Medication List Current Medications: Active Medications Acetaminophen (Tylenol -) 650 mg PO Q6H PRN PRN Reason: FEVER Last Admin: 12/27/19 22:05 Dose: 650 mg Apixaban (Eliquis -) 5 mg PO BID [facility] Last Admin: 12/28/19 22:06 Dose: 5 mg Atorvastatin Calcium (Lipitor -) 40 mg PO HS [facility] Last Admin: 12/28/19 22:06 Dose: 40 mg Carvedilol (Coreg -) 25 mg PO BID [facility] Last Admin: 12/28/19 22:06 Dose: 25 mg Cinacalcet (Sensipar -) 60 mg PO DAILY [facility] Last Admin: 12/28/19 09:45 Dose: 60 mg Cefazolin Sodium 1 gm/ (Dextrose) 50 mls @ 100 mls/hr IVPB DAILY [facility] Last Admin: 12/28/19 09:44 Dose: 100 mls/hr Sodium Chloride (Normal Saline -) 250 mls @ 3,000 mls/hr IV PRN PRN PRN Reason: Hypotension during Dialysis Stop: 12/30/19 06:37 Insulin Aspart (Novolog Vial Sliding Scale -) 1 vial SQ ACHS [facility]; Protocol Last Admin: 12/29/19 07:00 Dose: 6 units Lisinopril (Prinivil) 10 mg PO DAILY [facility] Last Admin: 12/28/19 09:44 Dose: 10 mg Pantoprazole Sodium (Protonix -) 40 mg PO DAILY [facility] Last Admin: 12/28/19 09:45 Dose: 40 mg - Objective Vital Signs: Vital Signs Temperature 209.1 F H 12/29/19 07:35 Pulse Rate 100 H 12/29/19 07:40 Respiratory Rate 18 12/29/19 07:40 Blood Pressure 125/70 12/29/19 07:40 O2 Sat by Pulse Oximetry (%) 98 12/28/19 22:00 Constitutional: Yes: Calm HENT: Yes: Normocephalic Cardiovascular: Yes: Regular Rate and Rhythm, S1, S2 Respiratory: Yes: CTA Bilaterally, Diminished Gastrointestinal: Yes: Normal Bowel Sounds, Abdomen, Obese Edema: Yes Edema: LLE: 1+, RLE: 1+ Neurological: Yes: Alert, Oriented Psychiatric: Yes: Alert, Oriented Labs: CBC, BMP 12/29/19 07:36 12/29/19 07:36 INR, PTT INR 1.18 (0.83-1.09) H 12/22/19 11:33 Problem List - Problems (1) Abscess Code(s): L02.91 - CUTANEOUS ABSCESS, UNSPECIFIED (2) Abscess of chest wall Code(s): L02.213 - CUTANEOUS ABSCESS OF CHEST WALL (3) Amputated toe of right foot Code(s): S98.131A - COMPLETE TRAUMATIC AMPUTATION OF ONE RIGHT LESSER TOE, INIT (4) Atrial fibrillation with rapid ventricular response Code(s): I48.91 - UNSPECIFIED ATRIAL FIBRILLATION (5) ESRD (end stage renal disease) Code(s): N18.6 - END STAGE RENAL DISEASE (6) Obesity Code(s): E66.9 - OBESITY, UNSPECIFIED (7) Systolic CHF Code(s): I50.20 - UNSPECIFIED SYSTOLIC (CONGESTIVE) HEART FAILURE (8) Type 2 diabetes mellitus with foot ulcer Code(s): E11.621 - TYPE 2 DIABETES MELLITUS WITH FOOT ULCER; L97.509 - NON- PRESSURE CHRONIC ULCER OTH PRT UNSP FOOT W UNSP SEVERITY Assessment/Plan 64 year old gentleman with history of ESRD on HD (MWF), DM, PVD Osteomylitis, hx of SVT/PSVT who presented from the dialysis center with fever and tachycardia. Found to have right upper chest, subclavicular abscess. 1. Chest wall abscess. 2. Hyperkalemia 3. Tachycardia/Afib with RVR 4. ESRD on HD 5. DM 6. Hypertension 7. Profound anemia 8. Patient is Confucianist and is reluctant to take blood and blood products. Had lengthy discussion with the patient regarding worsening anemia and the possible need for packed cell transfusion. His anemia is multifactorial in the setting of end-stage kidney disease, acute inflammatory process and the possibly suppressed bone marrow. Patient is Confucianist and would not want to consider packed cell transfusion at this point. I have detailed with him the risks and the benefits of blood transfusions. If the hemoglobin keeps dropping too dangerous ranges, the patient could have serious complications including myocardial infarctions and . Patient promised me that he will think about this and let us know within the next day or 2. Will receive Epogen postdialysis Elizabet Arteaga MD
--- NOTE | 2019-12-29 11:11 | PN ---
Progress Note, Physician History of Present Illness: pulmonary alert,comfortable ,-sob on HD,less chest discomfort - Current Medication List Current Medications: Active Medications Acetaminophen (Tylenol -) 650 mg PO Q6H PRN PRN Reason: FEVER Last Admin: 12/27/19 22:05 Dose: 650 mg Apixaban (Eliquis -) 5 mg PO BID [facility] Last Admin: 12/28/19 22:06 Dose: 5 mg Atorvastatin Calcium (Lipitor -) 40 mg PO HS [facility] Last Admin: 12/28/19 22:06 Dose: 40 mg Carvedilol (Coreg -) 25 mg PO BID [facility] Last Admin: 12/28/19 22:06 Dose: 25 mg Cinacalcet (Sensipar -) 60 mg PO DAILY [facility] Last Admin: 12/28/19 09:45 Dose: 60 mg Cefazolin Sodium 1 gm/ (Dextrose) 50 mls @ 100 mls/hr IVPB DAILY [facility] Last Admin: 12/28/19 09:44 Dose: 100 mls/hr Sodium Chloride (Normal Saline -) 250 mls @ 3,000 mls/hr IV PRN PRN PRN Reason: Hypotension during Dialysis Stop: 12/30/19 06:37 Insulin Aspart (Novolog Vial Sliding Scale -) 1 vial SQ ACHS [facility]; Protocol Last Admin: 12/29/19 07:00 Dose: 6 units Lisinopril (Prinivil) 10 mg PO DAILY [facility] Last Admin: 12/28/19 09:44 Dose: 10 mg Pantoprazole Sodium (Protonix -) 40 mg PO DAILY [facility] Last Admin: 12/28/19 09:45 Dose: 40 mg - Objective Vital Signs: Vital Signs Temperature 209.1 F H 12/29/19 07:35 Pulse Rate 100 H 12/29/19 10:08 Respiratory Rate 18 12/29/19 10:08 Blood Pressure 126/76 12/29/19 10:08 O2 Sat by Pulse Oximetry (%) 98 12/28/19 22:00 Constitutional: Yes: Well Nourished, Calm Eyes: Yes: WNL HENT: Yes: WNL Neck: Yes: WNL Cardiovascular: Yes: Pulse Irregular, S1, S2 Respiratory: Yes: CTA Bilaterally Gastrointestinal: Yes: Normal Bowel Sounds, Soft Extremities: Yes: WNL Edema: Yes Edema: LLE: Trace, RLE: Trace Labs: CBC, BMP 12/29/19 07:36 12/29/19 07:36 INR, PTT INR 1.18 (0.83-1.09) H 12/22/19 11:33 Assessment/Plan Problem List - Problems (1) Abnormal CT of the chest Code(s): R93.89 - ABNORMAL FINDINGS ON DX IMAGING OF OTH BODY STRUCTURES (2) Abscess Code(s): L02.91 - CUTANEOUS ABSCESS, UNSPECIFIED (3) Chest wall pain Code(s): R07.89 - OTHER CHEST PAIN (4) ESRD (end stage renal disease) Code(s): N18.6 - END STAGE RENAL DISEASE (5) New onset atrial fibrillation Code(s): I48.91 - UNSPECIFIED ATRIAL FIBRILLATION (6) Obesity Code(s): E66.9 - OBESITY, UNSPECIFIED (7) Weakness Code(s): R53.1 - WEAKNESS (8) Diabetes Code(s): E11.9 - TYPE 2 DIABETES MELLITUS WITHOUT COMPLICATIONS Qualifiers: 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 STAPH BACTEREMIA 14.A-FIB Assessment/Plan LEFT CHEST WALL ABSCESS S/P DEBRIDEMENT ABNORMALITIES ON LUNG CT APPEAR CHRONIC AND SUBPLEURAL REPEAT CT CHEST AN OUTPATIENT IN 2 MONTHS IF INCREASE IN SIZE WOULD REQUEST PET SCAN CONTINUE ABX PER ID AC HD PER RENAL DR ORTEZ
[2019-12-29] MEDS ORDERED: INSULIN (NOVOLOG) ASPART 100 UNITS/ML 10ML VIAL ONE (12:07)
[2019-12-29] MEDS: PANTOPRAZOLE 40 MG TABLET PO SCH (12:23)
[2019-12-29] MEDS: CEFAZOLIN 1 GM in DEXTROSE 5%-WATER - 50 ML IVPB SCH (12:23)
[2019-12-29] MEDS: APIXABAN 2.5 MG TABLET PO SCH (12:24)
[2019-12-29] MEDS: CARVEDILOL 25 MG TABLET (FP) PO SCH (12:24)
[2019-12-29] MEDS: LISINOPRIL 5 MG TABLET (FP) PO SCH (12:24)
[2019-12-29] MEDS ORDERED: PT OWN MED DRAWER 7, Y5N ONE (12:25)
[2019-12-29] MEDS: CINACALCET HCL 30 MG TAB (FP) PO SCH (12:26)
--- NOTE | 2019-12-29 14:18 | PN ---
Progress Note, Physician - Current Medication List Current Medications: Active Medications Acetaminophen (Tylenol -) 650 mg PO Q6H PRN PRN Reason: FEVER Last Admin: 12/27/19 22:05 Dose: 650 mg Apixaban (Eliquis -) 5 mg PO BID [facility] Last Admin: 12/29/19 12:24 Dose: 5 mg Atorvastatin Calcium (Lipitor -) 40 mg PO HS [facility] Last Admin: 12/28/19 22:06 Dose: 40 mg Carvedilol (Coreg -) 25 mg PO BID [facility] Last Admin: 12/29/19 12:24 Dose: 25 mg Cinacalcet (Sensipar -) 60 mg PO DAILY [facility] Last Admin: 12/29/19 12:26 Dose: 60 mg Cefazolin Sodium 1 gm/ (Dextrose) 50 mls @ 100 mls/hr IVPB DAILY [facility] Last Admin: 12/29/19 12:23 Dose: 100 mls/hr Sodium Chloride (Normal Saline -) 250 mls @ 3,000 mls/hr IV PRN PRN PRN Reason: Hypotension during Dialysis Stop: 12/30/19 06:37 Insulin Aspart (Novolog Vial Sliding Scale -) 1 vial SQ ACHS [facility]; Protocol Last Admin: 12/29/19 12:22 Dose: 2 units Lisinopril (Prinivil) 10 mg PO DAILY [facility] Last Admin: 12/29/19 12:24 Dose: 10 mg Pantoprazole Sodium (Protonix -) 40 mg PO DAILY [facility] Last Admin: 12/29/19 12:23 Dose: 40 mg - Objective Vital Signs: Vital Signs Temperature 209.1 F H 12/29/19 07:35 Pulse Rate 88 12/29/19 12:26 Respiratory Rate 18 12/29/19 12:26 Blood Pressure 132/70 12/29/19 12:26 O2 Sat by Pulse Oximetry (%) 98 12/29/19 10:00 Labs: CBC, BMP 12/29/19 07:36 12/29/19 07:36 INR, PTT INR 1.18 (0.83-1.09) H 12/22/19 11:33
[2019-12-29 15:54] VITALS: BP 135/83; PULSE 116; TEMP 98
[2019-12-29] MEDS ORDERED: EPOETIN ALFA 10,000 UNIT/1 ML VIAL IVPUSH ONE (19:31)
--- NOTE | 2020-01-01 11:38 | PN ---
Progress Note, Physician Chief Complaint: Pt A&Ox3; mild pain at anterior chest wall surgical site. Feels weak. Fair appetite. History of Present Illness: 64yM w PMHx ESRD on Hd (MWF), obesity, nonsustained/paroxysmal SVT, HTN, diastolic CHF, IDDM, ESBL osteomyelitis/s/p right 5th toe amputation, PVD, obesity (once weighed 400 lbs; with attention to food and "trying hard to exercise"; he has reduced to 280 lbs over the past few years), ?sleep apnea, presenting w fever, tachycardia, body aches starting yesterday. Been having 3-5 episodes of diarrhea ongoing for past month. Had paroxysmal SVT in past in setting of infection; denies having AF. Does not make urine. Denies cough, nasal congestion, chest pain, SOB, AB pain. PMD: Dr. Jameel Jauregui Cardiologsit: Dr. Jayne Odom - Objective Vital Signs: Vital Signs Temperature 98 F 12/29/19 15:00 Pulse Rate 116 H 12/29/19 15:00 Respiratory Rate 12/29/19 15:00 Blood Pressure 135/83 12/29/19 15:00 O2 Sat by Pulse Oximetry (%) 98 12/29/19 10:00 Constitutional: Yes: Calm, Obese Eyes: Yes: WNL HENT: Yes: WNL Neck: Yes: WNL Cardiovascular: Yes: Pulse Irregular, S1, S2 Respiratory: Yes: Regular Gastrointestinal: Yes: Soft, Abdomen, Obese ...Rectal Exam: Yes: Deferred Genitourinary: No: Anuria Musculoskeletal: Yes: Joint Stiffness, Muscle Weakness Extremities: Yes: Cool Edema: No Peripheral Pulses WNL: No Peripheral Pulses: Left Doralis Pedis: 1+, Right Dorsalis Pedis: 1+ Integumentary: Yes: Venous Stasis Changes, Other Wound/Incision: Yes: Clean/Dry Neurological: Yes: Alert, Oriented, Weakness Psychiatric: Yes: Alert, Oriented, Other (anxiety) Labs: CBC, BMP 12/29/19 07:36 12/29/19 07:36 INR, PTT INR 1.18 (0.83-1.09) H 12/22/19 11:33 Problem List - Problems (1) New onset atrial fibrillation Assessment/Plan: Telemetry: AF; controlled VR. Plan: On carvedilol 25 mg bid; on apixaban for anticoagulation. If necessary to continue diltiazem, use long-acting CD once daily 120 mg for better compliance. On lisinopril. Stop clopidogrel (no ischemia on 2018 stress MIBI). Maintain electrolytes WNL. Code(s): I48.91 - UNSPECIFIED ATRIAL FIBRILLATION (2) Amputated toe of right foot Code(s): S98.131A - COMPLETE TRAUMATIC AMPUTATION OF ONE RIGHT LESSER TOE, INIT (3) Dialysis patient Code(s): Z99.2 - DEPENDENCE ON RENAL DIALYSIS (4) HTN (hypertension) Code(s): I10 - ESSENTIAL (PRIMARY) HYPERTENSION (5) Sepsis Code(s): A41.9 - SEPSIS, UNSPECIFIED ORGANISM Qualifiers: Sepsis type: sepsis due to unspecified organism Qualified Code(s): A41.9 - Sepsis, unspecified organism (6) Type 2 diabetes mellitus with foot ulcer Code(s): E11.621 - TYPE 2 DIABETES MELLITUS WITH FOOT ULCER; L97.509 - NON- PRESSURE CHRONIC ULCER OTH PRT UNSP FOOT W UNSP SEVERITY (7) Elevated troponin I measurement Code(s): R74.8 - ABNORMAL LEVELS OF OTHER SERUM ENZYMES (8) Weakness Code(s): R53.1 - WEAKNESS (9) [place] cardiac risk >20% in next 10 years Code(s): Z91.89 - OTH PERSONAL RISK FACTORS, NOT ELSEWHERE CLASSIFIED (10) Systolic CHF Code(s): I50.20 - UNSPECIFIED SYSTOLIC (CONGESTIVE) HEART FAILURE (11) Chest wall pain Code(s): R07.89 - OTHER CHEST PAIN (12) Thoracic ascending aortic aneurysm Code(s): I71.2 - THORACIC AORTIC ANEURYSM, WITHOUT RUPTURE (13) Obesity Code(s): E66.9 - OBESITY, UNSPECIFIED
--- NOTE | 2020-01-01 11:39 | PN ---
Progress Note, Physician - Objective Vital Signs: Vital Signs Temperature 98 F 12/29/19 15:00 Pulse Rate 116 H 12/29/19 15:00 Respiratory Rate 20 12/29/19 15:00 Blood Pressure 135/83 12/29/19 15:00 O2 Sat by Pulse Oximetry (%) 98 12/29/19 10:00 Labs: CBC, BMP 12/29/19 07:36 12/29/19 07:36 INR, PTT INR 1.18 (0.83-1.09) H 12/22/19 11:33 Problem List - Problems (1) New onset atrial fibrillation Code(s): I48.91 - UNSPECIFIED ATRIAL FIBRILLATION (2) Amputated toe of right foot Code(s): S98.131A - COMPLETE TRAUMATIC AMPUTATION OF ONE RIGHT LESSER TOE, INIT (3) Dialysis patient Code(s): Z99.2 - DEPENDENCE ON RENAL DIALYSIS (4) HTN (hypertension) Code(s): I10 - ESSENTIAL (PRIMARY) HYPERTENSION (5) Sepsis Code(s): A41.9 - SEPSIS, UNSPECIFIED ORGANISM Qualifiers: Sepsis type: sepsis due to unspecified organism Qualified Code(s): A41.9 - Sepsis, unspecified organism (6) Type 2 diabetes mellitus with foot ulcer Code(s): E11.621 - TYPE 2 DIABETES MELLITUS WITH FOOT ULCER; L97.509 - NON- PRESSURE CHRONIC ULCER OTH PRT UNSP FOOT W UNSP SEVERITY (7) Elevated troponin I measurement Code(s): R74.8 - ABNORMAL LEVELS OF OTHER SERUM ENZYMES (8) Weakness Code(s): R53.1 - WEAKNESS (9) [place] cardiac risk >20% in next 10 years Code(s): Z91.89 - OTH PERSONAL RISK FACTORS, NOT ELSEWHERE CLASSIFIED (10) Systolic CHF Code(s): I50.20 - UNSPECIFIED SYSTOLIC (CONGESTIVE) HEART FAILURE (11) Chest wall pain Code(s): R07.89 - OTHER CHEST PAIN (12) Thoracic ascending aortic aneurysm Code(s): I71.2 - THORACIC AORTIC ANEURYSM, WITHOUT RUPTURE (13) Obesity Code(s): E66.9 - OBESITY, UNSPECIFIED
--- NOTE | 2020-01-01 11:39 | PN ---
Progress Note, Physician Chief Complaint: Pt A&Ox3;no chest pain unless moves left shoulder (then feels pain at surgical site); no dyspnea Continues to feel weak. History of Present Illness: 64yM w PMHx ESRD on Hd (MWF), obesity, nonsustained/paroxysmal SVT, HTN, diastolic CHF, IDDM, ESBL osteomyelitis/s/p right 5th toe amputation, PVD, obesity (once weighed 400 lbs; with attention to food and "trying hard to exercise"; he has reduced to 280 lbs over the past few years), ?sleep apnea, presenting w fever, tachycardia, body aches starting yesterday. Been having 3-5 episodes of diarrhea ongoing for past month. Had paroxysmal SVT in past in setting of infection; denies having AF. Does not make urine. Denies cough, nasal congestion, chest pain, SOB, AB pain. PMD: Dr. Jameel Jauregui Cardiologsit: Dr. Jayne Odom - Objective Vital Signs: Vital Signs Temperature 98 F 12/29/19 15:00 Pulse Rate 116 H 12/29/19 15:00 Respiratory Rate 12/29/19 15:00 Blood Pressure 135/83 12/29/19 15:00 O2 Sat by Pulse Oximetry (%) 98 12/29/19 10:00 Constitutional: Yes: Calm Eyes: Yes: WNL HENT: Yes: WNL Neck: Yes: WNL Cardiovascular: Yes: Pulse Irregular, S1 (varies in intensity), S2 Respiratory: Yes: Regular Gastrointestinal: Yes: Soft, Abdomen, Obese ...Rectal Exam: Yes: Deferred Genitourinary: No: Anuria Musculoskeletal: Yes: Joint Stiffness, Muscle Weakness Extremities: Yes: Cool Edema: No Peripheral Pulses WNL: No Peripheral Pulses: Left Doralis Pedis: 1+, Right Dorsalis Pedis: 1+ Integumentary: Yes: Incision, Venous Stasis Changes Wound/Incision: Yes: Clean/Dry (left anterior chest wall abscess drainage) Neurological: Yes: Alert, Oriented, Weakness Psychiatric: Yes: Alert, Oriented Labs: CBC, BMP 12/29/19 07:36 12/29/19 07:36 INR, PTT INR 1.18 (0.83-1.09) H 12/22/19 11:33 Problem List - Problems (1) New onset atrial fibrillation Assessment/Plan: Telemetry: AF; controlled VR. Plan: On carvedilol 25 mg bid; on apixaban for anticoagulation. If necessary to continue diltiazem, use long-acting CD once daily 120 mg for better compliance. On lisinopril. Stop clopidogrel (no ischemia on 2018 stress MIBI). Maintain electrolytes WNL. Code(s): I48.91 - UNSPECIFIED ATRIAL FIBRILLATION (2) Amputated toe of right foot Assessment/Plan: PAD. Will need f/u vascular workup, which may be done as outpatient. Code(s): S98.131A - COMPLETE TRAUMATIC AMPUTATION OF ONE RIGHT LESSER TOE, INIT (3) Dialysis patient Assessment/Plan: hemodialysis 3x/wk per instrumentation technician. Code(s): Z99.2 - DEPENDENCE ON RENAL DIALYSIS (4) HTN (hypertension) Code(s): I10 - ESSENTIAL (PRIMARY) HYPERTENSION (5) Sepsis Code(s): A41.9 - SEPSIS, UNSPECIFIED ORGANISM Qualifiers: Sepsis type: sepsis due to unspecified organism Qualified Code(s): A41.9 - Sepsis, unspecified organism (6) Type 2 diabetes mellitus with foot ulcer Code(s): E11.621 - TYPE 2 DIABETES MELLITUS WITH FOOT ULCER; L97.509 - NON- PRESSURE CHRONIC ULCER OTH PRT UNSP FOOT W UNSP SEVERITY (7) Elevated troponin I measurement Assessment/Plan: TNI 0.02-->0.37-->0.32; CK became elevated, but low CKMB relative index. EKG: AF; no significant STT abnormalities. ECHO: mildly decreased LVEF. Demand ischemia from multiple contributors, including AF with RVR, Systolic CHF , pain.fever. Communication with pt's grubber: Hx coronary artery stent: ?2016; on ASA and clopidogrel. Stress MIBI 12/2017: no ischemia; possible inferior wall infarct; reduced LVEF. Will f/u as outpatient with his grubber. Code(s): R74.8 - ABNORMAL LEVELS OF OTHER SERUM ENZYMES (8) Weakness Assessment/Plan: CT head: no acute pathology. Neurology w/u in progress: right femoral mononeuropathy; diabetic peripheral neuropathy. continue daily physical therapy. Code(s): R53.1 - WEAKNESS (9) [place] cardiac risk >20% in next 10 years Assessment/Plan: Hx coronary PCI ?2016; on ASA and clopidogrel. Pt had stress MIBI 12/26: no ischemia. Now with elevated TNI, atypical chest pain. f/u with pt's cardiologis (Dr. Odom). Code(s): Z91.89 - OTH PERSONAL RISK FACTORS, NOT ELSEWHERE CLASSIFIED (10) Systolic CHF Assessment/Plan: 12/2019 ECHO: mildly reduced LVEF (40-45%). (12/26 gated studies on stress MIBI: 33% LVEF). Started lisinopril. On beta blockers (changed to carvedilol). On diltiazem; dose reduced to 30 q 6h; consider discontinue if HR remains well- contolled. F/u BUN/Cr, electrolytes (magnesium level ordered), daily weight, Is and Os. Code(s): I50.20 - UNSPECIFIED SYSTOLIC (CONGESTIVE) HEART FAILURE (11) Chest wall pain Assessment/Plan: Pain management per PMD, surgeon. Code(s): R07.89 - OTHER CHEST PAIN (12) Thoracic ascending aortic aneurysm Assessment/Plan: 3.9 cm; f/u q 3-6 months. F/u with vascular surgeon. On carvedilol (HR control of AF; reduced LVEF; will decrease shear stress). Code(s): I71.2 - THORACIC AORTIC ANEURYSM, WITHOUT RUPTURE (13) Obesity Assessment/Plan: Pt has a goal of lowering weight to 200 lbs (was once 400 lbs). Code(s): E66.9 - OBESITY, UNSPECIFIED (14) ESRD (end stage renal disease) Assessment/Plan: F?u 3x/wk scheule per nephorlogist. Code(s): N18.6 - END STAGE RENAL DISEASE
== END 2019-12-29 18:16 | disposition home health service (06) | DRG 871 ==
LOC: JER 10:40 → JERBED 13:06 → J4W 16:15
PROVIDERS: ADMIT Internal Medicine; ATTEND Internal Medicine
PROC: 5A1D70Z Performance of Urinary Filtration, Intermittent, Less than 6 Hours Per Day (ICD-10-PCS; 2019-12-08)
PROC: 5A1D70Z Performance of Urinary Filtration, Intermittent, Less than 6 Hours Per Day (ICD-10-PCS; 2019-12-10)
PROC: 5A1D70Z Performance of Urinary Filtration, Intermittent, Less than 6 Hours Per Day (ICD-10-PCS; 2019-12-15)
PROC: 0W980ZX Drainage of Chest Wall, Open Approach, Diagnostic (ICD-10-PCS; principal; 2019-12-17 16:00)
PROC: 5A1D70Z Performance of Urinary Filtration, Intermittent, Less than 6 Hours Per Day (ICD-10-PCS; 2019-12-18)
PROC: 5A1D70Z Performance of Urinary Filtration, Intermittent, Less than 6 Hours Per Day (ICD-10-PCS; 2019-12-20)
PROC: 5A1D70Z Performance of Urinary Filtration, Intermittent, Less than 6 Hours Per Day (ICD-10-PCS; 2019-12-22)
PROC: 5A1D70Z Performance of Urinary Filtration, Intermittent, Less than 6 Hours Per Day (ICD-10-PCS; 2019-12-25)
PROC: 5A1D70Z Performance of Urinary Filtration, Intermittent, Less than 6 Hours Per Day (ICD-10-PCS; 2019-12-27)
PROC: 5A1D70Z Performance of Urinary Filtration, Intermittent, Less than 6 Hours Per Day (ICD-10-PCS; 2019-12-29)
DX: A41.01 Sepsis due to Methicillin susceptible Staphylococcus aureus (principal); N18.6 End stage renal disease; I13.2 Hypertensive heart and chronic kidney disease with heart failure and with stage 5 chronic kidney disease, or end stage renal disease; I50.20 Unspecified systolic (congestive) heart failure; L02.213 Cutaneous abscess of chest wall; E11.22 Type 2 diabetes mellitus with diabetic chronic kidney disease; K21.9 Gastro-esophageal reflux disease without esophagitis; K57.90 Diverticulosis of intestine, part unspecified, without perforation or abscess without bleeding; K63.5 Polyp of colon; R74.9 Abnormal serum enzyme level, unspecified; E87.5 Hyperkalemia; I48.91 Unspecified atrial fibrillation; R50.9 Fever, unspecified; R00.0 Tachycardia, unspecified; E11.51 Type 2 diabetes mellitus with diabetic peripheral angiopathy without gangrene; G47.30 Sleep apnea, unspecified; E66.9 Obesity, unspecified; Z68.38 Body mass index [BMI] 38.0-38.9, adult; R06.02 Shortness of breath; I71.2 Thoracic aortic aneurysm, without rupture; D72.829 Elevated white blood cell count, unspecified; R55 Syncope and collapse; M19.012 Primary osteoarthritis, left shoulder; R07.89 Other chest pain; G58.8 Other specified mononeuropathies; R22.2 Localized swelling, mass and lump, trunk; R74.8 Abnormal levels of other serum enzymes; R53.1 Weakness; Z89.421 Acquired absence of other right toe(s); Z99.2 Dependence on renal dialysis
CPT/HCPCS: 36415; 70450-TC; 71045-TC-FY; 71250-TC; 72131-TC; 73030-TC-LT-FY; 73523-TC-FY; 73560-TC-RT-FY; 73610-TC-RT-FY; 80048; 80053; 80061; 82550; 82553; 82565; 82607; 82728; 82747; 82962; 83540; 83550; 83721; 83735; 84100; 84443; 84484; 84520; 85014; 85025; 85027; 85379; 85610; 85730; 86803; 86850; 86900; 86901; 87040; 87070; 87186; 87205; 87340; 87804; 93005; 93010; 93306-TC; 93971; 94760; 97116-GP; 97161-GP; 99285-25; G0480; J0131; J0735; J0885; Q5106

== ENCOUNTER 2019-12-31 17:09 | Inpatient (IN) | payer OTHER ==
--- NOTE | 2019-12-31 18:14 | PDOC ---
History of Present Illness - General Chief Complaint: Weakness Stated Complaint: WEAKNESS Time Seen by Provider: 12/31/19 17:32 History Source: Patient - History of Present Illness Initial Comments: 64M PMH IDDM, ESRD (HD MWF), AF on Eliquis, HTN, HLD BIBEMS from home for persistent weakness. Pt was discharged from hospital on 12/29 and offered rehab vs home; pt choose to go home but has not been able to complete his ADLs. VNS came today and stated he will end up in the ED tomorrow after dialysis in his current condition. Pt has been weak w/ RLE > LLE since discharge and denies increasing weakness; requesting rehab now. Denies new onset weakness, numbness, tingling, cp/sob, f/c, n/v. Past History - Past Medical History Allergies/Adverse Reactions: Allergies Allergy/AdvReac Type Severity Reaction Status Date / Time Pork/Porcine Containing Allergy Verified 12/31/19 17:59 Products Home Medications: Ambulatory Orders Cinacalcet HCl [Sensipar] 60 mg PO DAILY 09/28/14 Hum Insulin NPH/Reg Insulin Hm [Novolin 70-30 U100 Cartridge] 40 unit SQ BID Atorvastatin Ca [Lipitor] 40 mg PO HS #30 tablet 10/03/14 cloNIDine HCL [Catapres -] 0.1 mg PO BID #60 tablet 10/03/14 Metoclopramide HCl [Reglan] 5 mg PO TID #0 tablet 04/28/16 Pantoprazole Sodium [Protonix] 40 mg PO DAILY #0 tablet. 04/28/16 Sevelamer Carbonate [Renvela -] 2,400 mg PO TID 04/28/16 Ammonium Lactate Lotion [Lac-Hydrin 12] 1 applic TP BID PRN bottle 02/08/18 Metoprolol Tartrate [Lopressor -] 25 mg PO BID tablet 02/28/18 Clopidogrel Bisulfate [Plavix] 75 mg PO DAILY #30 tablet 08/19/18 Apixaban [Eliquis -] 5 mg PO BID tablet 12/29/19 Carvedilol [Coreg -] 25 mg PO BID tablet 12/29/19 Epoetin Lenny [Procrit -] 20,000 unit SQ Q2D ml 12/29/19 Epoetin Lenny [Procrit -] 20,000 unit SQ Q2D ml 12/29/19 Insulin Sliding Scale [Novolog Vial Sliding Scale -] 1 vial SQ ACHS units 12/29 Lisinopril [Prinivil] 10 mg PO DAILY tablet 12/29/19 Anemia: Yes Asthma: No Cancer: No Cardiac Disorders: No CVA: No COPD: No CHF: No DVT: No Dementia: No Diabetes: Yes Dialysis: Yes GI Disorders: Yes (DIVERTICULOSIS, COLON POLYPS, GERD) Disorders: (ESRD ON DIALYSIS M- W- ) HTN: Yes Hypercholesterolemia: Yes Liver Disease: Yes (ELEVATED LIVER ENZYMES) Seizures: No Thyroid Disease: No - Surgical History Abdominal Surgery: No Appendectomy: No Cardiac Surgery: No Cholecystectomy: No Lung Surgery: No Neurologic Surgery: No Orthopedic Surgery: Yes (ROTATOR CUFF REPAIR L SHOULDER) - Immunization History Immunization Up to Date: Yes - Psycho Social/Smoking Cessation Hx Smoking History: Never smoked Have you smoked in the past 12 months: No Number of Cigarettes Smoked Daily: 0 Cigars Per Day: 0 Information on smoking cessation initiated: No Hx Alcohol Use: No Drug/Substance Use Hx: No Substance Use Type: None Hx Substance Use Treatment: No Review of Systems - Review of Systems Able to Perform ROS?: Yes Comments:: CONSTITUTIONAL: Denies F / C HEENT: Denies headache, changes in vision / hearing RESP: Denies SOB CARD: Denies chest pain GI: Denies N / V / D, abdominal pain, bloody stool, inability to tolerate PO : does not make urine. SKIN: Denies rashes NEURO: endorses persistent weakness w/ RLE > LLE. Denies numbness, tingling *Physical Exam - Vital Signs Last Vital Signs Temp Pulse Resp BP Pulse Ox 97.4 F L 101 H 144/93 97 12/31/19 17:54 12/31/19 17:54 12/31/19 17:54 12/31/19 17:54 - Physical Exam GEN: Well appearing, NAD, comfortable. AAOx3. HEENT: NC/AT, EOMI, PERRL. No facial asymmetry. Moist mucous membranes; poor dentition. Normal voice. Supple neck w/ FROM. CV: S1/S2, RRR, no m/r/g LUNG: CTAB, no wheezes, crackles, rales, rhonchi. GI: Soft, ndnt, +BS, no guarding, no rebound. No masses. MSK: No obvious deformities of all extremities. SKIN: Warm, dry, no rashes appreciated. PSYCH: Normal mood and affect. NEURO: Moving all extremities well. 5/5 UE strength b/l. 5/5 LLE strength. 4/5 RLE strength. symmetric sensation. ED Treatment Course - LABORATORY CBC & Chemistry Diagram: 01/01/20 06:15 01/01/20 06:15 - RADIOLOGY Radiology Studies Ordered: Category Date Time Status CHEST X-RAY PORTABLE* [RAD] Stat Radiology 12/31/19 18:05 Ordered Medical Decision Making - Medical Decision Making 12/31/19 18:09 64M PMH IDDM, ESRD (HD MWF), AF on Eliquis, HTN, HLD BIBEMS from home for persistent weakness; was DC'd on 12/29/18 now requesting rehab. No acute worsening of Sx. - CBC, CMP, trop - CXR, EKG 12/31/19 18:[address] Wilson ADMITTED 12/31/19 19:39 ekg 1921 hr 92 pr* qrs 92 qtc 462; afib; incomplete rbbb Discharge - Discharge Information Problems reviewed: Yes Clinical Impression/Diagnosis: Weakness Condition: Stable - Follow up/Referral - Patient Discharge Instructions - Post Discharge Activity
[2019-12-31 18:54] LABS: BASO % 0.9 % (0-2.0); EOS % 3.7 % (0-4.5); HEMATOCRIT 30.8 % (35.4-49); HEMOGLOBIN 10.1 GM/dL (11.7-16.9); LYMPH % 15.1 % (8-40); MCH 28.6 pg (25.7-33.7); MCHC 32.8 g/dl (32.0-35.9); MEAN CELL VOLUME 87.3 fl (80-96); MEAN PLT VOLUME 9.2 fl (7.5-11.1); MONO % 9.6 % (3.8-10.2); NEUT % 70.7 % (42.8-82.8); PLATELET COUNT 212 K/MM3 (134-434); RBC 3.52 M/mm3 (4.00-5.60); RDW 16.6 % (11.9-15.9); WHITE BLOOD COUNT 7.8 K/mm3 (4.0-10.0)
[2019-12-31 19:18] LABS: ALBUMIN 2.4 g/dl (3.4-5.0); ALK PHOS 158 U/L (45-117); ANION GAP 11 MMOL/L (8-16); BILIRUBIN,TOTAL 0.9 mg/dL (0.2-1); BLOOD UREA NITROGEN 38.3 mg/dL (7-18); CALCIUM 8.9 mg/dL (8.5-10.1); CHLORIDE 98 mmol/L (98-107); CO2 29 mmol/L (21-32); GLUCOSE,RANDOM 264 mg/dL (74-106); SGOT/AST 22 U/L (15-37); SGPT/ALT < 6 U/L (13-61); SODIUM 138 mmol/L (136-145); TOT PROT 7.9 g/dl (6.4-8.2)
--- NOTE | 2019-12-31 19:18 | PDOC ---
Documentation entered by Heidi Starks SCRIBE, acting as scribe for Debra Mckeon MD. Debra Mckeon MD: This documentation has been prepared by the brittniibe, Heidi Starks SCRIBE, under my direction and personally reviewed by me in its entirety. I confirm that the documentation accurately reflects all work, treatment, procedures, and medical decision making performed by me. Attending Attestation - Resident Resident Name: Zaki Bernabe - ED Attending Attestation I have performed the following: I have examined & evaluated the patient, The case was reviewed & discussed with the resident, I agree w/resident's findings & plan, Exceptions are as noted - HPI HPI: 12/31/19 18:35 The patient is a 64-year-old male with a past medical history significant for ESRD, Afib on eliquis, HTN, HLD, and recent admission for sepsis who presents to the emergency department with weakness. The patient was discharged home on the , however, since being home, hes been unable to perform self-care secondary to weakness. Denies missing dialysis. - Physicial Exam PE: 12/31/19 18:40 GENERAL: He is well-nourished well-developed 64-year-old male presents because of the inability to take care of himself at home, difficulty walking he was discharged from the hospital 2 days ago. HEENT: Normocephalic, atraumatic. PERRL, EOM intact. CARDIOVASCULAR: Normal S1, S2. Regular rate and rhythm. PULMONARY: Clear to auscultation bilaterally. ABDOMEN: Protuberant abdomen. Soft, non-tender. EXTREMITIES: +minimal lower extremity edema. Left arm AV dialysis shunt, with a thrill. Normal ROM in all four extremities. SKIN: Warm, dry. No rash NEUROLOGICAL: alert and oriented x3. No focal neurological deficits. - Medical Decision Making 12/31/19 18:41 Initially when the patient was being discharged on Wednesday he was given the option to go to rehab but he thought he could manage himself at home. He is back here today because he cannot manage himself at home. He states he has difficulty ambulating at home. End-stage renal disease Wednesday dialysis 12/31/19 19:19 pt admitted
[2019-12-31 19:21] LABS: INR 1.49 (0.83-1.09); PROTHROMBIN TIME (PATIENT) 17.7 SEC (9.7-13.0)
[2019-12-31 19:24] LABS: ACTIVATED PTT 37.4 SECONDS (25.2-36.5)
[2019-12-31 19:35] LABS: CREATININE 7.9 mg/dL (0.55-1.3)
[2019-12-31] MEDS ORDERED: APIXABAN 2.5 MG TABLET PO SCH (23:30)
[2019-12-31] MEDS ORDERED: APIXABAN 5 MG TABLET ONE (23:37)
[2019-12-31] MEDS ORDERED: CARVEDILOL 12.5 MG TABLET (FP) ONE (23:37)
[2019-12-31] MEDS: CARVEDILOL 25 MG TABLET (FP) PO SCH (23:40)
[2020-01-01] MEDS ORDERED: PATIENT'S OWN MEDICATION (NON-FORMULARY) (Metoclopramide Hcl [Reglan] 5 MG) PO SCH (06:00)
[2020-01-01] MEDS ORDERED: METOCLOPRAMIDE HCL 10 MG TABLET (FP) PO ONE (06:26)
[2020-01-01] MEDS: METOCLOPRAMIDE HCL 10 MG TABLET (FP) PO SCH ×3 (06:29→21:53)
[2020-01-01] MEDS ORDERED: INSULIN (NOVOLOG MIX 70/30) 100 UNITS/ML MDV SQ ONE (07:18)
[2020-01-01] MEDS: INSULIN (NOVOLOG MIX 70/30) 100 UNITS/ML MDV SQ SCH ×2 (07:42→17:49)
[2020-01-01 07:43] LABS: BASO % 0.8 % (0-2.0); EOS % 3.7 % (0-4.5); HEMATOCRIT 28.5 % (35.4-49); HEMOGLOBIN 9.3 GM/dL (11.7-16.9); LYMPH % 16.6 % (8-40); MCH 28.7 pg (25.7-33.7); MCHC 32.7 g/dl (32.0-35.9); MEAN CELL VOLUME 87.7 fl (80-96); MEAN PLT VOLUME 10.1 fl (7.5-11.1); MONO % 10.3 % (3.8-10.2); NEUT % 68.6 % (42.8-82.8); PLATELET COUNT 196 K/MM3 (134-434); RBC 3.25 M/mm3 (4.00-5.60); RDW 16.4 % (11.9-15.9); WHITE BLOOD COUNT 8.1 K/mm3 (4.0-10.0)
[2020-01-01] MEDS: SEVELAMER CARBONATE 800 MG TAB (FP) PO SCH ×3 (08:23→17:53)
[2020-01-01 08:39] LABS: ALBUMIN 2.2 g/dl (3.4-5.0); ALK PHOS 134 U/L (45-117); ANION GAP 9 MMOL/L (8-16); BLOOD UREA NITROGEN 43.8 mg/dL (7-18); CALCIUM 8.7 mg/dL (8.5-10.1); CHLORIDE 100 mmol/L (98-107); CO2 28 mmol/L (21-32); GLUCOSE,RANDOM 157 mg/dL (74-106); POTASSIUM 4.2 mmol/L (3.5-5.1); SGOT/AST 16 U/L (15-37); SGPT/ALT < 6 U/L (13-61); SODIUM 137 mmol/L (136-145); TOT PROT 7.2 g/dl (6.4-8.2)
[2020-01-01 08:58] LABS: CREATININE 8.5 mg/dL (0.55-1.3)
--- NOTE | 2020-01-01 09:14 | EKG ---
Test Reason : Blood Pressure : / mmHG Vent. Rate : 092 BPM Atrial Rate : 394 BPM P-R Int : 000 ms QRS Dur : 092 ms QT Int : 374 ms P-R-T Axes : 000 -19 052 degrees QTc Int : 462 ms ATRIAL FIBRILLATION INCOMPLETE RIGHT BUNDLE BRANCH BLOCK POSSIBLE ANTERIOR INFARCT , AGE UNDETERMINED ABNORMAL ECG WHEN COMPARED WITH ECG OF 23-DEC-2019 11:34, NONSPECIFIC T WAVE ABNORMALITY, WORSE IN INFERIOR LEADS Confirmed by Wilman Bethea ([id number]) on 01/01/2020 9:14:04 AM Referred By: Confirmed By:Wilman Bethea
[2020-01-01] MEDS: CLOPIDOGREL BISULFATE 75 MG TABLET (FP) PO SCH (09:20)
[2020-01-01] MEDS: LISINOPRIL 10 MG TABLET (FP) PO SCH (09:20)
[2020-01-01] MEDS: APIXABAN 5 MG TABLET PO SCH ×2 (09:20→21:52)
[2020-01-01] MEDS: PANTOPRAZOLE 40 MG TABLET PO SCH (09:20)
[2020-01-01] MEDS: CARVEDILOL 25 MG TABLET (FP) PO SCH ×2 (09:20→21:52)
[2020-01-01] MEDS ORDERED: HUM INSULIN NPH SQ SCH (10:00)
[2020-01-01] MEDS ORDERED: LISINOPRIL 5 MG TABLET (FP) PO SCH (10:00)
[2020-01-01] MEDS ORDERED: [UNRECOGNIZED DRUG - OTHER] SQ SCH (10:00)
[2020-01-01] MEDS ORDERED: REG INSULIN SQ SCH (10:00)
[2020-01-01] MEDS ORDERED: EPOETIN ALFA 10,000 UNIT/1 ML VIAL SQ ONE (12:05)
[2020-01-01] MEDS ORDERED: SODIUM CHLORIDE 250 ML IV PRN (12:05)
--- NOTE | 2020-01-01 12:37 | CON.CARD ---
Consult Consult Specialty:: Cardiology - History of Present Illness History of Present Illness: The patient is a 64-year-old male with a past medical history significant for ESRD, Afib on eliquis, HTN, HLD, and recent admission for sepsis who presents to the emergency department with weakness. The patient was discharged home on the , however, since being home, hes been unable to perform self-care secondary to weakness. Denies missing dialysis. - History Source History Provided By: Patient, Medical Record - Past Medical History Cardio/Vascular: Yes: AFIB, HTN Pulmonary: Yes: Other (no previous chest trauma). No: Asthma, COPD, O2 Dependent, Pneumonia, Previously Intubated Renal/: Yes: Renal Failure Infectious Disease: Yes: Other (osteomyelitis) Endocrine: Yes: Diabetes Mellitus - Past Surgical History Past Surgical History: Yes: Amputation (right 5th toe), AV Fistula/Graft - Alcohol/Substance Use Hx Alcohol Use: No - Smoking History Smoking history: Never smoked Have you smoked in the past 12 months: No Aproximately how many cigarettes per day: 0 - Social History Usual Living Arrangement: With Spouse ADL: Family Assistance History of Recent Travel: No Home Medications - Allergies Allergies/Adverse Reactions: Allergies Allergy/AdvReac Type Severity Reaction Status Date / Time Pork/Porcine Containing Allergy Verified 12/31/19 17:59 Products - Home Medications Home Medications: Ambulatory Orders Cinacalcet HCl [Sensipar] 60 mg PO DAILY 09/28/14 Hum Insulin NPH/Reg Insulin Hm [Novolin 70-30 U100 Cartridge] 40 unit SQ BID Atorvastatin Ca [Lipitor] 40 mg PO HS #30 tablet 10/03/14 cloNIDine HCL [Catapres -] 0.1 mg PO BID #60 tablet 10/03/14 Metoclopramide HCl [Reglan] 5 mg PO TID #0 tablet 04/28/16 Pantoprazole Sodium [Protonix] 40 mg PO DAILY #0 tablet. 04/28/16 Sevelamer Carbonate [Renvela -] 2,400 mg PO TID 04/28/16 Ammonium Lactate Lotion [Lac-Hydrin 12] 1 applic TP BID PRN bottle 02/08/18 Metoprolol Tartrate [Lopressor -] 25 mg PO BID tablet 02/28/18 Clopidogrel Bisulfate [Plavix] 75 mg PO DAILY #30 tablet 08/19/18 Apixaban [Eliquis -] 5 mg PO BID tablet 12/29/19 Carvedilol [Coreg -] 25 mg PO BID tablet 12/29/19 Epoetin Lenny [Procrit -] 20,000 unit SQ Q2D ml 12/29/19 Epoetin Lenny [Procrit -] 20,000 unit SQ Q2D ml 12/29/19 Insulin Sliding Scale [Novolog Vial Sliding Scale -] 1 vial SQ ACHS units 12/29 Lisinopril [Prinivil] 10 mg PO DAILY tablet 12/29/19 Review of Systems - Review of Systems Constitutional: reports: Weakness Eyes: reports: No Symptoms HENT: reports: No Symptoms Neck: reports: No Symptoms Cardiovascular: reports: No Symptoms Gastrointestinal: reports: No Symptoms Genitourinary: reports: No Symptoms Breasts: reports: No Symptoms Reported Musculoskeletal: reports: No Symptoms Integumentary: reports: No Symptoms Neurological: reports: No Symptoms Endocrine: reports: No Symptoms Hematology/Lymphatic: reports: No Symptoms Psychiatric: reports: No Symptoms Vital Signs: Vital Signs Temperature 98.3 F 01/01/20 12:00 Pulse Rate 87 01/01/20 12:00 Respiratory Rate 19 01/01/20 12:00 Blood Pressure 155/71 01/01/20 12:00 O2 Sat by Pulse Oximetry (%) 100 01/01/20 12:00 Constitutional: Yes: Well Nourished, No Distress, Calm Eyes: Yes: WNL, Conjunctiva Clear, EOM Intact HENT: Yes: WNL, Atraumatic, Normocephalic Neck: Yes: WNL, Supple, Trachea Midline Respiratory: Yes: WNL, Regular, CTA Bilaterally Gastrointestinal: Yes: WNL, Normal Bowel Sounds Renal/: Yes: WNL Cardiovascular: Yes: Pulse Irregular Heart Sounds: Yes: S1, S2 Murmur: Yes: Systolic Murmur Musculoskeletal: Yes: WNL Extremities: Yes: WNL Edema: Yes Integumentary: Yes: WNL Neurological: Yes: WNL, Alert, Oriented ...Motor Strength: WNL Psychiatric: Yes: WNL, Alert, Oriented - Other Data Labs, Other Data: CBC, BMP 01/01/20 06:15 01/01/20 06:15 INR, PTT INR 1.49 (0.83-1.09) H 12/31/19 18:44 Troponin, BNP 12/31/19 18:44 Troponin I < 0.02 Troponin, BNP 12/31/19 18:44 Troponin I < 0.02 Imaging - Results Chest X-ray: Image Reviewed (no i/e tds) EKG: Image Reviewed (af rep abn incomplete rbbb ? old ant wall mi) Problem List - Problems (1) Abnormal CT of the chest Code(s): R93.89 - ABNORMAL FINDINGS ON DX IMAGING OF OTH BODY STRUCTURES (2) Abscess Code(s): L02.91 - CUTANEOUS ABSCESS, UNSPECIFIED (3) Abscess of chest wall Code(s): L02.213 - CUTANEOUS ABSCESS OF CHEST WALL (4) Amputated toe of right foot Code(s): S98.131A - COMPLETE TRAUMATIC AMPUTATION OF ONE RIGHT LESSER TOE, INIT (5) Atrial fibrillation with rapid ventricular response Code(s): I48.91 - UNSPECIFIED ATRIAL FIBRILLATION (6) Cellulitis Code(s): L03.90 - CELLULITIS, UNSPECIFIED Qualifiers: Site of cellulitis: extremity Site of cellulitis of extremity: toe Laterality: right Qualified Code(s): L03.031 - Cellulitis of right toe (7) Chest wall pain Code(s): R07.89 - OTHER CHEST PAIN (8) Cholelithiasis Code(s): K80.20 - CALCULUS OF GALLBLADDER W/O CHOLECYSTITIS W/O OBSTRUCTION (9) Claudication of both lower extremities Code(s): I73.9 - PERIPHERAL VASCULAR DISEASE, UNSPECIFIED (10) Common bile duct dilation Code(s): K83.8 - OTHER SPECIFIED DISEASES OF BILIARY TRACT (11) Diabetes Code(s): E11.9 - TYPE 2 DIABETES MELLITUS WITHOUT COMPLICATIONS Qualifiers: Diabetes mellitus manager terminal insulin use: unspecified manager terminal insulin use status Diabetes mellitus complication status: with circulatory complication (12) Dialysis patient Code(s): Z99.2 - DEPENDENCE ON RENAL DIALYSIS (13) ESRD (end stage renal disease) Code(s): N18.6 - END STAGE RENAL DISEASE (14) Elevated troponin I measurement Code(s): R74.8 - ABNORMAL LEVELS OF OTHER SERUM ENZYMES (15) Foot ulcer due to secondary DM Code(s): E13.621 - OTHER SPECIFIED DIABETES MELLITUS WITH FOOT ULCER; L97.509 - NON-PRESSURE CHRONIC ULCER OTH PRT UNSP FOOT W UNSP SEVERITY (16) [place] cardiac risk >20% in next 10 years Code(s): Z91.89 - OTH PERSONAL RISK FACTORS, NOT ELSEWHERE CLASSIFIED (17) HLD (hyperlipidemia) Code(s): E78.5 - HYPERLIPIDEMIA, UNSPECIFIED (18) HTN (hypertension) Code(s): I10 - ESSENTIAL (PRIMARY) HYPERTENSION (19) Hyperkalemia Code(s): E87.5 - HYPERKALEMIA (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 (21) NSVT (nonsustained ventricular tachycardia) Code(s): I47.2 - VENTRICULAR TACHYCARDIA (22) New onset atrial fibrillation Code(s): I48.91 - UNSPECIFIED ATRIAL FIBRILLATION (23) Obesity Code(s): E66.9 - OBESITY, UNSPECIFIED (24) PSVT (paroxysmal supraventricular tachycardia) Code(s): I47.1 - SUPRAVENTRICULAR TACHYCARDIA (25) Sepsis Code(s): A41.9 - SEPSIS, UNSPECIFIED ORGANISM Qualifiers: Sepsis type: sepsis due to unspecified organism Qualified Code(s): A41.9 - Sepsis, unspecified organism (26) Systolic CHF Code(s): I50.20 - UNSPECIFIED SYSTOLIC (CONGESTIVE) HEART FAILURE (27) Thoracic ascending aortic aneurysm Code(s): I71.2 - THORACIC AORTIC ANEURYSM, WITHOUT RUPTURE (28) Toe gangrene Code(s): I96 - GANGRENE, NOT ELSEWHERE CLASSIFIED (29) Toe infection Code(s): L08.9 - LOCAL INFECTION OF THE SKIN AND SUBCUTANEOUS TISSUE, UNSP (30) Tremor Code(s): R25.1 - TREMOR, UNSPECIFIED (31) Type 2 diabetes mellitus with foot ulcer Code(s): E11.621 - TYPE 2 DIABETES MELLITUS WITH FOOT ULCER; L97.509 - NON- PRESSURE CHRONIC ULCER OTH PRT UNSP FOOT W UNSP SEVERITY (32) Weakness Code(s): R53.1 - WEAKNESS Assessment/Plan 64-year-old male with a past medical history significant for ESRD, Afib on eliquis, HTN, HLD, and recent admission for sepsis who presents to the emergency department with weakness. Plan; HD Cont AC and rate control. Cardiac suarez stable.
[2020-01-01] MEDS ORDERED: EPOETIN ALFA-EPBX 10,000 UNIT, EPOETIN ALFA-EPBX 3,000 UNIT, EPOETIN ALFA-EPBX 2,000 UNIT SQ ONE (12:45)
--- NOTE | 2020-01-01 17:04 | HP ---
Admitting History and Physical - Past Medical History Cardiovascular: Yes: AFIB, HTN Pulmonary: Yes: Other (no previous chest trauma). No: Asthma, COPD, O2 Dependent, Pneumonia, Previously Intubated Renal/: Yes: Renal Failure Heme/Onc: Yes: Anemia Infectious Disease: Yes: Other (osteomyelitis) Endocrine: Yes: Diabetes Mellitus - Past Surgical History Past Surgical History: Yes: Amputation (right 5th toe), AV Fistula/Graft - Smoking History Smoking history: Never smoked Have you smoked in the past 12 months: No Aproximately how many cigarettes per day: 0 - Alcohol/Substance Use Hx Alcohol Use: No - Social History ADL: Family Assistance History of Recent Travel: No Home Medications - Allergies Allergies/Adverse Reactions: Allergies Allergy/AdvReac Type Severity Reaction Status Date / Time Pork/Porcine Containing Allergy Verified 12/31/19 17:59 Products - Home Medications Home Medications: Ambulatory Orders Cinacalcet HCl [Sensipar] 60 mg PO DAILY 09/28/14 Hum Insulin NPH/Reg Insulin Hm [Novolin 70-30 U100 Cartridge] 40 unit SQ BID Atorvastatin Ca [Lipitor] 40 mg PO HS #30 tablet 10/03/14 cloNIDine HCL [Catapres -] 0.1 mg PO BID #60 tablet 10/03/14 Metoclopramide HCl [Reglan] 5 mg PO TID #0 tablet 04/28/16 Pantoprazole Sodium [Protonix] 40 mg PO DAILY #0 tablet. 04/28/16 Sevelamer Carbonate [Renvela -] 2,400 mg PO TID 04/28/16 Ammonium Lactate Lotion [Lac-Hydrin 12] 1 applic TP BID PRN bottle 02/08/18 Metoprolol Tartrate [Lopressor -] 25 mg PO BID tablet 02/28/18 Clopidogrel Bisulfate [Plavix] 75 mg PO DAILY #30 tablet 08/19/18 Apixaban [Eliquis -] 5 mg PO BID tablet 12/29/19 Carvedilol [Coreg -] 25 mg PO BID tablet 12/29/19 Epoetin Lenny [Procrit -] 20,000 unit SQ Q2D ml 12/29/19 Epoetin Lenny [Procrit -] 20,000 unit SQ Q2D ml 12/29/19 Insulin Sliding Scale [Novolog Vial Sliding Scale -] 1 vial SQ ACHS units 12/29 Lisinopril [Prinivil] 10 mg PO DAILY tablet 12/29/19 Physical Examination Vital Signs: Vital Signs Temperature 98.1 F 01/01/20 12:50 Pulse Rate 91 H 01/01/20 16:25 Respiratory Rate 18 01/01/20 16:25 Blood Pressure 129/89 01/01/20 16:25 O2 Sat by Pulse Oximetry (%) 100 01/01/20 12:00 Labs: CBC, BMP 01/01/20 06:15 01/01/20 06:15
[2020-01-01 18:26] VITALS: BMI 39.6
--- NOTE | 2020-01-01 20:18 | CONSULT ---
Consult Consult Specialty:: Nephrology Reason for Consultation:: ESRD - History of Present Illness Chief Complaint: weakness History of Present Illness: Pt is a 64 year old male with pmhx of esrd, a-fib, htn, hld, anemia and obesity who presents to the ER with weakness. He was recently discharged from the hospital. He says that he is unable to care for himself at home. He denies shortness of breath. He denies fevers or chills. He has refused to go to rehab when he was last discharged. He denies chest pain or palpitations. He is due for HD today. - History Source History Provided By: Patient, Medical Record - Past Medical History Cardio/Vascular: Yes: AFIB, HTN Pulmonary: Yes: Other (no previous chest trauma) Renal/: Yes: Renal Failure, Hemodialysis Infectious Disease: Yes: Other (osteomyelitis) Endocrine: Yes: Diabetes Mellitus - Past Surgical History Past Surgical History: Yes: Amputation (right 5th toe), AV Fistula/Graft - Alcohol/Substance Use Hx Alcohol Use: No - Smoking History Smoking history: Never smoked Have you smoked in the past 12 months: No Aproximately how many cigarettes per day: 0 - Social History Usual Living Arrangement: With Spouse ADL: Family Assistance History of Recent Travel: No Home Medications - Allergies Allergies/Adverse Reactions: Allergies Allergy/AdvReac Type Severity Reaction Status Date / Time Pork/Porcine Containing Allergy Verified 12/31/19 17:59 Products - Home Medications Home Medications: Ambulatory Orders Cinacalcet HCl [Sensipar] 60 mg PO DAILY 09/28/14 Hum Insulin NPH/Reg Insulin Hm [Novolin 70-30 U100 Cartridge] 40 unit SQ BID Atorvastatin Ca [Lipitor] 40 mg PO HS #30 tablet 10/03/14 cloNIDine HCL [Catapres -] 0.1 mg PO BID #60 tablet 10/03/14 Metoclopramide HCl [Reglan] 5 mg PO TID #0 tablet 04/28/16 Pantoprazole Sodium [Protonix] 40 mg PO DAILY #0 tablet. 04/28/16 Sevelamer Carbonate [Renvela -] 2,400 mg PO TID 04/28/16 Ammonium Lactate Lotion [Lac-Hydrin 12] 1 applic TP BID PRN bottle 02/08/18 Metoprolol Tartrate [Lopressor -] 25 mg PO BID tablet 02/28/18 Clopidogrel Bisulfate [Plavix] 75 mg PO DAILY #30 tablet 08/19/18 Apixaban [Eliquis -] 5 mg PO BID tablet 12/29/19 Carvedilol [Coreg -] 25 mg PO BID tablet 12/29/19 Epoetin Lenny [Procrit -] 20,000 unit SQ Q2D ml 12/29/19 Epoetin Lenny [Procrit -] 20,000 unit SQ Q2D ml 12/29/19 Insulin Sliding Scale [Novolog Vial Sliding Scale -] 1 vial SQ ACHS units 12/29 Lisinopril [Prinivil] 10 mg PO DAILY tablet 12/29/19 Family Medical History Family History: Denies Review of Systems - Review of Systems Constitutional: reports: Malaise Eyes: reports: No Symptoms HENT: reports: No Symptoms Neck: reports: No Symptoms Cardiovascular: reports: No Symptoms Respiratory: reports: No Symptoms Gastrointestinal: reports: No Symptoms Genitourinary: reports: No Symptoms Musculoskeletal: reports: Muscle Weakness Integumentary: reports: No Symptoms Neurological: reports: No Symptoms Endocrine: reports: No Symptoms Hematology/Lymphatic: reports: No Symptoms Psychiatric: reports: No Symptoms Physical Exam Vital Signs: Vital Signs Temperature 98.0 F 01/01/20 18:48 Pulse Rate 91 H 01/01/20 18:48 Respiratory Rate 18 01/01/20 19:19 Blood Pressure 140/90 01/01/20 18:48 O2 Sat by Pulse Oximetry (%) 100 01/01/20 12:00 Constitutional: Yes: Calm Eyes: Yes: Conjunctiva Clear HENT: Yes: Atraumatic Neck: Yes: Supple Cardiovascular: Yes: S1, S2 Respiratory: Yes: CTA Bilaterally Gastrointestinal: Yes: Normal Bowel Sounds, Soft Renal/: Yes: WNL Musculoskeletal: Yes: Muscle Weakness Edema: LLE: Trace, RLE: Trace Neurological: Yes: Oriented Psychiatric: Yes: Oriented Labs: CBC, BMP 01/01/20 06:15 01/01/20 06:15 Imaging - Results Chest X-ray: Report Reviewed Problem List - Problems (1) ESRD (end stage renal disease) Code(s): N18.6 - END STAGE RENAL DISEASE Assessment/Plan Current Medications Generic Name Dose Route Start Last Admin Trade Name Freq PRN Reason Stop Dose Admin Apixaban 5 mg 01/01/20 10:00 01/01/20 09:20 Eliquis - PO 5 mg BID MARK Administration Atorvastatin Calcium 40 mg 01/01/20 22:00 Lipitor - PO HS [facility] Carvedilol 25 mg 12/31/19 23:30 01/01/20 09:20 Coreg - PO 25 mg BID MARK Administration Clopidogrel Bisulfate 75 mg 01/01/20 10:00 01/01/20 09:20 Plavix - PO 75 mg DAILY MARK Administration Epoetin Lenny 20,000 unit 01/02/20 10:00 Procrit - SQ Q2D [facility] Sodium Chloride 250 mls @ 3,000 mls/hr 01/01/20 12:05 Normal Saline - IV 01/02/20 12:05 PRN PRN Hypotension during Dialysis Insulin Aspart 1 vial 01/01/20 07:00 Novolog Vial Sliding Scale - SQ ACHS [facility] Protocol Insulin Aspart 40 units 01/01/20 07:00 01/01/20 17:49 Novolog Mix 70/30 Vial SQ Not Given BIDI [facility] Lisinopril 10 mg 01/01/20 10:00 01/01/20 09:20 Prinivil PO 10 mg DAILY [facility] Administration Metoclopramide HCl 5 mg 01/01/20 06:00 01/01/20 17:29 Reglan - PO Not Given TID MARK Pantoprazole Sodium 40 mg 01/01/20 10:00 01/01/20 09:20 Protonix - PO 40 mg DAILY MARK Administration Sevelamer Carbonate 2,400 mg 01/01/20 08:00 01/01/20 17:53 Renvela - PO 2,400 mg TIDCM [facility] Administration 1. weakness 2. a-fib 3. obesity 4. ESRD on HD 5. DM 6. Hypertension 7. anemia Plan - HD today - epogen for anemia - rehab/pt eval - renal diet - discussed with attending
[2020-01-01] MEDS ORDERED: INSULIN (NOVOLOG) ASPART 100 UNITS/ML 10ML VIAL ONE (21:46)
[2020-01-01] MEDS: ATORVASTATIN CA 40 MG TABLET (FP) PO SCH (21:52)
[2020-01-02] MEDS: METOCLOPRAMIDE HCL 10 MG TABLET (FP) PO SCH ×3 (05:56→21:29)
[2020-01-02] MEDS: INSULIN SLIDING SCALE (NOVOLOG) 1 VIAL SQ SCH ×6 (06:01→21:30)
[2020-01-02] MEDS: INSULIN (NOVOLOG MIX 70/30) 100 UNITS/ML MDV SQ SCH ×2 (06:03→17:28)
[2020-01-02] MEDS: SEVELAMER CARBONATE 800 MG TAB (FP) PO SCH ×3 (09:55→17:53)
[2020-01-02] MEDS: CARVEDILOL 25 MG TABLET (FP) PO SCH ×2 (09:59→21:29)
[2020-01-02] MEDS: LISINOPRIL 10 MG TABLET (FP) PO SCH (09:59)
[2020-01-02] MEDS: CLOPIDOGREL BISULFATE 75 MG TABLET (FP) PO SCH (09:59)
[2020-01-02] MEDS: PANTOPRAZOLE 40 MG TABLET PO SCH (09:59)
[2020-01-02] MEDS: APIXABAN 5 MG TABLET PO SCH ×2 (09:59→21:30)
[2020-01-02] MEDS ORDERED: EPOETIN ALFA 20,000 UNIT/1 ML VIAL SQ SCH (10:00)
--- NOTE | 2020-01-02 12:14 | PN ---
Progress Note (short form) - Note Progress Note: Renal follow up for ESRD on HD Seen and examined at the bedside awake and alert s/p dialysis yesterday denies any sob, cp, fever, chills, N/V/D continues to have generalized weakness Vital Signs Temperature 97.6 F 01/02/20 10:00 Pulse Rate 108 H 01/02/20 10:00 Respiratory Rate 18 01/02/20 10:00 Blood Pressure 140/80 01/02/20 10:00 O2 Sat by Pulse Oximetry (%) 100 01/01/20 12:00 Intake & Output 12/30/19 12/31/19 01/01/20 01/02/20 23:59 23:59 23:59 23:59 Intake Total 500 Output Total 3000 Balance -2500 Weight 127.006 kg 132.449 kg NAD awake and alert RRR CTA soft, obese, NT/ND no LE edema left chest wall dressing in place left arm AVF CBC, BMP 01/01/20 06:15 01/01/20 06:15 Current Medications Apixaban (Eliquis -) 5 mg PO BID [facility] Last Admin: 01/02/20 09:59 Dose: 5 mg Atorvastatin Calcium (Lipitor -) 40 mg PO HS [facility] Last Admin: 01/01/20 21:52 Dose: 40 mg Carvedilol (Coreg -) 25 mg PO BID [facility] Last Admin: 01/02/20 09:59 Dose: 25 mg Clopidogrel Bisulfate (Plavix -) 75 mg PO DAILY [facility] Last Admin: 01/02/20 09:59 Dose: 75 mg Epoetin Lenny (Procrit -) 20,000 unit SQ Q2D [facility] Insulin Aspart (Novolog Mix 70/30 Vial) 40 units SQ BIDI [facility] Last Admin: 01/02/20 06:03 Dose: 40 unit Insulin Aspart (Novolog Vial Sliding Scale -) 1 vial SQ ACHS [facility]; Protocol Last Admin: 01/02/20 06:01 Dose: 2 units Lisinopril (Prinivil) 10 mg PO DAILY [facility] Last Admin: 01/02/20 09:59 Dose: 10 mg Metoclopramide HCl (Reglan -) 5 mg PO TID [facility] Last Admin: 01/02/20 05:56 Dose: 5 mg Pantoprazole Sodium (Protonix -) 40 mg PO DAILY [facility] Last Admin: 01/02/20 09:59 Dose: 40 mg Sevelamer Carbonate (Renvela -) 2,400 mg PO TIDCM MARK Last Admin: 01/02/20 09:55 Dose: 2,400 mg 64 year old male with pmhx of esrd, a-fib, htn, hld, anemia and obesity who presents to the ER with weakness. 1. ESRD on HD 2. Generalized weakness from deconditioning vs anemia 3. Chronic anemia 4. Hypertension 5. DM on insulin no acute need for dialysis at this time. Next treatment planned for tomorrow with UF as tolerated Renal diet and 1.2L fluid restriction. Hgb noted, no acute need for transfusion and pt will not accept blood products. will continue LIZZIE with dialysis and give IV iron if needed continue Lisinopril, coreg continue phos binder Thank you Meet Pedro DO
[2020-01-02] MEDS ORDERED: SODIUM CHLORIDE 250 ML IV PRN (12:16)
[2020-01-02] MEDS ORDERED: INSULIN (NOVOLOG MIX 70/30) 100 UNITS/ML MDV SQ ONE (19:32)
[2020-01-02] MEDS ORDERED: INSULIN (NOVOLOG) ASPART 100 UNITS/ML 10ML VIAL ONE (20:43)
[2020-01-02] MEDS: ATORVASTATIN CA 40 MG TABLET (FP) PO SCH (21:29)
--- NOTE | 2020-01-02 23:39 | PN ---
Progress Note, Physician - Current Medication List Current Medications: Active Medications Apixaban (Eliquis -) 5 mg PO BID [facility] Last Admin: 01/02/20 21:30 Dose: 5 mg Atorvastatin Calcium (Lipitor -) 40 mg PO HS [facility] Last Admin: 01/02/20 21:29 Dose: 40 mg Carvedilol (Coreg -) 25 mg PO BID [facility] Last Admin: 01/02/20 21:29 Dose: 25 mg Clopidogrel Bisulfate (Plavix -) 75 mg PO DAILY [facility] Last Admin: 01/02/20 09:59 Dose: 75 mg Epoetin Lenny (Procrit -) 15,000 unit IVPUSH ONCE ONE Stop: 01/03/20 06:01 Sodium Chloride (Normal Saline -) 250 mls @ 3,000 mls/hr IV PRN PRN PRN Reason: Hypotension during Dialysis Stop: 01/03/20 12:15 Sodium Chloride (Normal Saline -) 250 mls @ 3,000 mls/hr IV PRN PRN PRN Reason: Hypotension during Dialysis Stop: 01/03/20 12:17 Insulin Aspart (Novolog Mix 70/30 Vial) 40 units SQ BIDI [facility] Last Admin: 01/02/20 17:28 Dose: Not Given Insulin Aspart (Novolog Vial Sliding Scale -) 1 vial SQ ACHS [facility]; Protocol Last Admin: 01/02/20 21:30 Dose: Not Given Lisinopril (Prinivil) 10 mg PO DAILY [facility] Last Admin: 01/02/20 09:59 Dose: 10 mg Metoclopramide HCl (Reglan -) 5 mg PO TID [facility] Last Admin: 01/02/20 21:29 Dose: 5 mg Pantoprazole Sodium (Protonix -) 40 mg PO DAILY [facility] Last Admin: 01/02/20 09:59 Dose: 40 mg Sevelamer Carbonate (Renvela -) 2,400 mg PO TIDCM [facility] Last Admin: 01/02/20 17:53 Dose: 2,400 mg - Objective Vital Signs: Vital Signs Temperature 98.3 F 01/02/20 22:00 Pulse Rate 108 H 01/02/20 22:00 Respiratory Rate 18 01/02/20 22:00 Blood Pressure 140/78 01/02/20 22:00 O2 Sat by Pulse Oximetry (%) 100 01/01/20 12:00 Labs: CBC, BMP 01/01/20 06:15 01/01/20 06:15 INR, PTT INR 1.49 (0.83-1.09) H 12/31/19 18:44
[2020-01-03] MEDS: METOCLOPRAMIDE HCL 10 MG TABLET (FP) PO SCH ×2 (05:42→14:02)
[2020-01-03] MEDS: INSULIN SLIDING SCALE (NOVOLOG) 1 VIAL SQ SCH ×3 (06:11→16:45)
[2020-01-03] MEDS ORDERED: SODIUM CHLORIDE 250 ML IV PRN (07:02)
--- NOTE | 2020-01-03 07:09 | PN ---
Progress Note, Physician Chief Complaint: Pt A&Ox3; no chest pain or dyspnea. Still feels weak. History of Present Illness: 64-year-old man with a past medical history significant for ESRD, Afib on eliquis, mild systolic CHF, HTN, HLD, obese, sedentary, and recent admission for sepsis, CHF, and abscess drainage, who presents to the emergency department with weakness. The patient was discharged home on the 12/29 after prolonged stay in [facility] that included drainage of left anterior chest wall abscess. Since being home, he has been unable to perform self-care secondary to weakness. Denies missing dialysis. - Current Medication List Current Medications: Active Medications Apixaban (Eliquis -) 5 mg PO BID [facility] Last Admin: 01/02/20 21:30 Dose: 5 mg Atorvastatin Calcium (Lipitor -) 40 mg PO HS [facility] Last Admin: 01/02/20 21:29 Dose: 40 mg Carvedilol (Coreg -) 25 mg PO BID [facility] Last Admin: 01/02/20 21:29 Dose: 25 mg Clopidogrel Bisulfate (Plavix -) 75 mg PO DAILY [facility] Last Admin: 01/02/20 09:59 Dose: 75 mg Epoetin Lenny (Procrit -) 15,000 unit IVPUSH ONCE ONE Stop: 01/03/20 07:16 Insulin Aspart (Novolog Vial Sliding Scale -) 1 vial SQ [facility]; Protocol Last Admin: 01/03/20 06:11 Dose: 2 units Lisinopril (Prinivil) 10 mg PO DAILY [facility] Last Admin: 01/02/20 09:59 Dose: 10 mg Metoclopramide HCl (Reglan -) 5 mg PO TID [facility] Last Admin: 01/03/20 05:42 Dose: 5 mg Pantoprazole Sodium (Protonix -) 40 mg PO DAILY [facility] Last Admin: 01/02/20 09:59 Dose: 40 mg Sevelamer Carbonate (Renvela -) 2,400 mg PO TIDCM [facility] Last Admin: 01/02/20 17:53 Dose: 2,400 mg - Objective Vital Signs: Vital Signs Temperature 98 F 01/03/20 06:18 Pulse Rate 109 H 01/03/20 06:18 Respiratory Rate 20 01/03/20 06:18 Blood Pressure 120/66 01/03/20 06:18 O2 Sat by Pulse Oximetry (%) 100 01/01/20 12:00 Constitutional: Yes: Calm, Obese Eyes: Yes: WNL HENT: Yes: WNL Neck: Yes: Supple Cardiovascular: Yes: S1 (varies in intensity), S2 Respiratory: Yes: Regular Gastrointestinal: Yes: Soft, Abdomen, Obese ...Rectal Exam: Yes: Deferred Genitourinary: Yes: Other (on 3x/week hemodialysis). No: Anuria Breast(s): Yes: WNL Musculoskeletal: Yes: Joint Stiffness, Muscle Weakness Extremities: Yes: Cool, Other (right 5th toe amputation) Edema: No Peripheral Pulses WNL: No Peripheral Pulses: Left Doralis Pedis: 1+, Right Dorsalis Pedis: 1+ Integumentary: Yes: Venous Stasis Changes Neurological: Yes: Alert, Oriented, Weakness Psychiatric: Yes: Alert, Oriented Labs: CBC, BMP 01/01/20 06:15 01/01/20 06:15 INR, PTT INR 1.49 (0.83-1.09) H 12/31/19 18:44 - ....Imaging Chest X-ray: Image Reviewed EKG: Image Reviewed Problem List - Problems (1) Atrial fibrillation Code(s): I48.91 - UNSPECIFIED ATRIAL FIBRILLATION (2) PAD (peripheral artery disease) Code(s): I73.9 - PERIPHERAL VASCULAR DISEASE, UNSPECIFIED (3) Weakness Code(s): R53.1 - WEAKNESS (4) Abscess of chest wall Code(s): L02.213 - CUTANEOUS ABSCESS OF CHEST WALL (5) Amputated toe of right foot Code(s): S98.131A - COMPLETE TRAUMATIC AMPUTATION OF ONE RIGHT LESSER TOE, INIT (6) Cellulitis Code(s): L03.90 - CELLULITIS, UNSPECIFIED Qualifiers: Site of cellulitis: extremity Site of cellulitis of extremity: toe Laterality: right Qualified Code(s): L03.031 - Cellulitis of right toe (7) Claudication of both lower extremities Code(s): I73.9 - PERIPHERAL VASCULAR DISEASE, UNSPECIFIED (8) Diabetes Code(s): E11.9 - TYPE 2 DIABETES MELLITUS WITHOUT COMPLICATIONS Qualifiers: Diabetes mellitus prison insulin use: unspecified manager terminal insulin use status Diabetes mellitus complication status: with circulatory complication (9) [place] cardiac risk >20% in next 10 years Code(s): Z91.89 - [facility] PERSONAL RISK FACTORS, NOT ELSEWHERE CLASSIFIED (10) HLD (hyperlipidemia) Code(s): E78.5 - HYPERLIPIDEMIA, UNSPECIFIED (11) HTN (hypertension) Code(s): I10 - ESSENTIAL (PRIMARY) HYPERTENSION (12) Obesity Code(s): E66.9 - OBESITY, UNSPECIFIED (13) Systolic CHF Code(s): I50.20 - UNSPECIFIED SYSTOLIC (CONGESTIVE) HEART FAILURE (14) Thoracic ascending aortic aneurysm Assessment/Plan: borderline in size. Code(s): I71.2 - THORACIC AORTIC ANEURYSM, WITHOUT RUPTURE (15) Pulmonary lesion Assessment/Plan: RML abnormality noted on 12/15/19 CT; repeat study recommended after one month. Code(s): J98.4 - OTHER DISORDERS OF LUNG
[2020-01-03] MEDS ORDERED: EPOETIN ALFA 10,000 UNIT/1 ML VIAL IVPUSH ONE (07:15)
[2020-01-03] MEDS: SEVELAMER CARBONATE 800 MG TAB (FP) PO SCH ×3 (08:17→16:45)
--- NOTE | 2020-01-03 13:43 | PN ---
Progress Note, Physician History of Present Illness: The patient is a 64-year-old male with a past medical history significant for ESRD, Afib on eliquis, HTN, HLD, and recent admission for sepsis who presents to the emergency department with weakness. The patient was discharged home on the , however, since being home, hes been unable to perform self-care secondary to weakness. Denies missing dialysis. - Current Medication List Current Medications: Active Medications Apixaban (Eliquis -) 5 mg PO BID [facility] Last Admin: 01/02/20 21:30 Dose: 5 mg Atorvastatin Calcium (Lipitor -) 40 mg PO HS [facility] Last Admin: 01/02/20 21:29 Dose: 40 mg Carvedilol (Coreg -) 25 mg PO BID [facility] Last Admin: 01/02/20 21:29 Dose: 25 mg Clopidogrel Bisulfate (Plavix -) 75 mg PO DAILY [facility] Last Admin: 01/02/20 09:59 Dose: 75 mg Insulin Aspart (Novolog Vial Sliding Scale -) 1 vial SQ ACHS [facility]; Protocol Last Admin: 01/03/20 06:11 Dose: 2 units Lisinopril (Prinivil) 10 mg PO DAILY [facility] Last Admin: 01/02/20 09:59 Dose: 10 mg Metoclopramide HCl (Reglan -) 5 mg PO TID [facility] Last Admin: 01/03/20 05:42 Dose: 5 mg Pantoprazole Sodium (Protonix -) 40 mg PO DAILY [facility] Last Admin: 01/02/20 09:59 Dose: 40 mg Sevelamer Carbonate (Renvela -) 2,400 mg PO TIDCM [facility] Last Admin: 01/03/20 08:17 Dose: 2,400 mg - Objective Vital Signs: Vital Signs Temperature 98.2 F 01/03/20 08:50 Pulse Rate 78 01/03/20 12:44 Respiratory Rate 18 01/03/20 12:44 Blood Pressure 104/63 01/03/20 12:44 O2 Sat by Pulse Oximetry (%) 100 01/01/20 12:00 Eyes: Yes: WNL, Conjunctiva Clear, EOM Intact HENT: Yes: WNL, Atraumatic, Normocephalic Neck: Yes: WNL, Supple, Trachea Midline Cardiovascular: Yes: Pulse Irregular, Murmur, S1, S2 Respiratory: Yes: WNL, Regular, CTA Bilaterally Gastrointestinal: Yes: WNL, Normal Bowel Sounds Genitourinary: Yes: WNL Musculoskeletal: Yes: WNL Edema: Yes Integumentary: Yes: WNL Neurological: Yes: WNL, Alert, Oriented ...Motor Strength: WNL Psychiatric: Yes: WNL Labs: CBC, BMP 01/01/20 06:15 01/01/20 06:15 INR, PTT INR 1.49 (0.83-1.09) H 12/31/19 18:44 Problem List - Problems (1) Abnormal CT of the chest Code(s): R93.89 - ABNORMAL FINDINGS ON DX IMAGING OF OT BODY STRUCTURES (2) Abscess Code(s): L02.91 - CUTANEOUS ABSCESS, UNSPECIFIED (3) Abscess of chest wall Code(s): L02.213 - CUTANEOUS ABSCESS OF CHEST WALL (4) Amputated toe of right foot Code(s): S98.131A - COMPLETE TRAUMATIC AMPUTATION OF ONE RIGHT LESSER TOE, INIT (5) Atrial fibrillation with rapid ventricular response Code(s): I48.91 - UNSPECIFIED ATRIAL FIBRILLATION (6) Cellulitis Code(s): L03.90 - CELLULITIS, UNSPECIFIED Qualifiers: Site of cellulitis: extremity Site of cellulitis of extremity: toe Laterality: right Qualified Code(s): L03.031 - Cellulitis of right toe (7) Chest wall pain Code(s): R07.89 - OTHER CHEST PAIN (8) Cholelithiasis Code(s): K80.20 - CALCULUS OF GALLBLADDER W/O CHOLECYSTITIS W/O OBSTRUCTION (9) Claudication of both lower extremities Code(s): I73.9 - PERIPHERAL VASCULAR DISEASE, UNSPECIFIED (10) Common bile duct dilation Code(s): K83.8 - OTHER SPECIFIED DISEASES OF BILIARY TRACT (11) Diabetes Code(s): E11.9 - TYPE 2 DIABETES MELLITUS WITHOUT COMPLICATIONS Qualifiers: Diabetes mellitus long-term insulin use: unspecified packaging engineer insulin use status Diabetes mellitus complication status: with circulatory complication (12) Dialysis patient Code(s): Z99.2 - DEPENDENCE ON RENAL DIALYSIS (13) ESRD (end stage renal disease) Code(s): N18.6 - END STAGE RENAL DISEASE (14) Elevated troponin I measurement Code(s): R74.8 - ABNORMAL LEVELS OF OTHER SERUM ENZYMES (15) Foot ulcer due to secondary DM Code(s): E13.621 - OTHER SPECIFIED DIABETES MELLITUS WITH FOOT ULCER; L97.509 - NON-PRESSURE CHRONIC ULCER OTH PRT UNSP FOOT W UNSP SEVERITY (16) [place] cardiac risk >20% in next 10 years Code(s): Z91.89 - OTH PERSONAL RISK FACTORS, NOT ELSEWHERE CLASSIFIED (17) HLD (hyperlipidemia) Code(s): E78.5 - HYPERLIPIDEMIA, UNSPECIFIED (18) HTN (hypertension) Code(s): I10 - ESSENTIAL (PRIMARY) HYPERTENSION (19) Hyperkalemia Code(s): E87.5 - HYPERKALEMIA (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 (21) NSVT (nonsustained ventricular tachycardia) Code(s): I47.2 - VENTRICULAR TACHYCARDIA (22) New onset atrial fibrillation Code(s): I48.91 - UNSPECIFIED ATRIAL FIBRILLATION (23) Obesity Code(s): E66.9 - OBESITY, UNSPECIFIED (24) PSVT (paroxysmal supraventricular tachycardia) Code(s): I47.1 - SUPRAVENTRICULAR TACHYCARDIA (25) Sepsis Code(s): A41.9 - SEPSIS, UNSPECIFIED ORGANISM Qualifiers: Sepsis type: sepsis due to unspecified organism Qualified Code(s): A41.9 - Sepsis, unspecified organism (26) Systolic CHF Code(s): I50.20 - UNSPECIFIED SYSTOLIC (CONGESTIVE) HEART FAILURE (27) Thoracic ascending aortic aneurysm Code(s): I71.2 - THORACIC AORTIC ANEURYSM, WITHOUT RUPTURE (28) Toe gangrene Code(s): I96 - GANGRENE, NOT ELSEWHERE CLASSIFIED (29) Toe infection Code(s): L08.9 - LOCAL INFECTION OF THE SKIN AND SUBCUTANEOUS TISSUE, UNSP (30) Tremor Code(s): R25.1 - TREMOR, UNSPECIFIED (31) Type 2 diabetes mellitus with foot ulcer Code(s): E11.621 - TYPE 2 DIABETES MELLITUS WITH FOOT ULCER; L97.509 - NON- PRESSURE CHRONIC ULCER OTH PRT UNSP FOOT W UNSP SEVERITY (32) Weakness Code(s): R53.1 - WEAKNESS Assessment/Plan 64-year-old male with a past medical history significant for ESRD, Afib on eliquis, HTN, HLD, and recent admission for sepsis who presents to the emergency department with weakness. Plan; HD Cont AC and rate control. Cardiac suarez stable. - Problems (1) Atrial fibrillation Code(s): I48.91 - UNSPECIFIED ATRIAL FIBRILLATION (2) PAD (peripheral artery disease) Code(s): I73.9 - PERIPHERAL VASCULAR DISEASE, UNSPECIFIED (3) Weakness Code(s): R53.1 - WEAKNESS (4) Abscess of chest wall Code(s): L02.213 - CUTANEOUS ABSCESS OF CHEST WALL (5) Amputated toe of right foot Code(s): S98.131A - COMPLETE TRAUMATIC AMPUTATION OF ONE RIGHT LESSER TOE, INIT (6) Cellulitis Code(s): L03.90 - CELLULITIS, UNSPECIFIED Qualifiers: Site of cellulitis: extremity Site of cellulitis of extremity: toe Laterality: right Qualified Code(s): L03.031 - Cellulitis of right toe (7) Claudication of both lower extremities Code(s): I73.9 - PERIPHERAL VASCULAR DISEASE, UNSPECIFIED (8) Diabetes Code(s): E11.9 - TYPE 2 DIABETES MELLITUS WITHOUT COMPLICATIONS Qualifiers: Diabetes mellitus long-term insulin use: unspecified long-term insulin use status Diabetes mellitus complication status: with circulatory complication (9) [place] cardiac risk >20% in next 10 years Code(s): Z91.89 - OT PERSONAL RISK FACTORS, NOT ELSEWHERE CLASSIFIED (10) HLD (hyperlipidemia) Code(s): E78.5 - HYPERLIPIDEMIA, UNSPECIFIED (11) HTN (hypertension) Code(s): I10 - ESSENTIAL (PRIMARY) HYPERTENSION (12) Obesity Code(s): E66.9 - OBESITY, UNSPECIFIED (13) Systolic CHF Code(s): I50.20 - UNSPECIFIED SYSTOLIC (CONGESTIVE) HEART FAILURE (14) Thoracic ascending aortic aneurysm Assessment/Plan: borderline in size. Code(s): I71.2 - THORACIC AORTIC ANEURYSM, WITHOUT RUPTURE (15) Pulmonary lesion Assessment/Plan: RML abnormality noted on 12/15/19 CT; repeat study recommended after one month. Code(s): J98.4 - OTHER DISORDERS OF LUNG
[2020-01-03] MEDS: CLOPIDOGREL BISULFATE 75 MG TABLET (FP) PO SCH (14:02)
[2020-01-03] MEDS: PANTOPRAZOLE 40 MG TABLET PO SCH (14:03)
[2020-01-03] MEDS: APIXABAN 5 MG TABLET PO SCH (14:03)
[2020-01-03] MEDS: CARVEDILOL 25 MG TABLET (FP) PO SCH (14:03)
[2020-01-03] MEDS: LISINOPRIL 10 MG TABLET (FP) PO SCH (14:03)
--- NOTE | 2020-01-03 16:33 | EKG ---
Test Reason : Blood Pressure : / mmHG Vent. Rate : 101 BPM Atrial Rate : 084 BPM P-R Int : 000 ms QRS Dur : 090 ms QT Int : 384 ms P-R-T Axes : 000 -23 068 degrees QTc Int : 497 ms ATRIAL FIBRILLATION WITH RAPID VENTRICULAR RESPONSE WITH PREMATURE VENTRICULAR OR ABERRANTLY CONDUCTED COMPLEXES NONSPECIFIC T WAVE ABNORMALITY ABNORMAL ECG Confirmed by MD AUSTIN, OMER ([id number]) on 01/03/2020 4:32:51 PM Referred By: Esmer BRASWELL Confirmed By:OMER AVILA MD
--- NOTE | 2020-01-03 17:54 | PN ---
Progress Note (short form) - Note Progress Note: Renal follow up for ESRD on HD Seen and examined during dialysis earlier today awake and alert denies any sob, cp, fever, chills, N/V/D still feels weak BP stable, UF goal 2L access with good flow Vital Signs Temperature 97.4 F L 01/03/20 14:00 Pulse Rate 98 H 01/03/20 14:00 Respiratory Rate 20 01/03/20 14:00 Blood Pressure 119/83 01/03/20 14:00 O2 Sat by Pulse Oximetry (%) 100 01/01/20 12:00 NAD awake and alert RRR CTA soft, obese, NT/ND no LE edema left chest wall dressing in place left arm AVF CBC, BMP 01/01/20 06:15 01/01/20 06:15 64 year old male with pmhx of esrd, a-fib, htn, hld, anemia and obesity who presents to the ER with weakness. 1. ESRD on HD 2. Generalized weakness from deconditioning vs anemia 3. Chronic anemia 4. Hypertension 5. DM on insulin tolerated dialysis well this am. Renal diet and 1.2L fluid restriction. Hgb noted, no acute need for transfusion and pt will not accept blood products. will continue LIZZIE with dialysis and give IV iron if needed continue Lisinopril, coreg continue phos binder awaiting placement in rehab Thank you Meet Pedro DO
[2020-01-03 19:31] VITALS: BP 122/99; PULSE 99; TEMP 98.4
== END 2020-01-03 20:00 | DRG 947 ==
LOC: JER 17:09 → JERBED 18:40 → J8W 01-01 17:27
PROVIDERS: ADMIT Internal Medicine; ATTEND Internal Medicine
PROC: 5A1D70Z Performance of Urinary Filtration, Intermittent, Less than 6 Hours Per Day (ICD-10-PCS; principal; 2020-01-03)
DX: R53.1 Weakness (principal); N18.6 End stage renal disease; I13.2 Hypertensive heart and chronic kidney disease with heart failure and with stage 5 chronic kidney disease, or end stage renal disease; I50.22 Chronic systolic (congestive) heart failure; E11.9 Type 2 diabetes mellitus without complications; I48.91 Unspecified atrial fibrillation; E66.9 Obesity, unspecified; E78.5 Hyperlipidemia, unspecified; Z99.2 Dependence on renal dialysis; Z68.39 Body mass index [BMI] 39.0-39.9, adult; D64.9 Anemia, unspecified
CPT/HCPCS: 36415; 71045-TC-FY; 80053; 82962; 84484; 85025; 85610; 85730; 87081; 93005; 93010; 97116-GP; 97161-GP; 99285-25; J0885; Q5106

== ENCOUNTER 2020-07-31 18:17 | Inpatient (IN) | payer OTHER ==
[2020-07-31 18:36] VITALS: BMI 35.2
--- NOTE | 2020-07-31 18:36 | PDOC ---
History of Present Illness - General Chief Complaint: Weakness Stated Complaint: WEAKNESS BOTH LEGS Time Seen by Provider: 07/31/20 18:35 Past History - Medical History Allergies/Adverse Reactions: Allergies Allergy/AdvReac Type Severity Reaction Status Date / Time Pork/Porcine Containing Allergy Verified 07/31/20 18:35 Products Home Medications: Ambulatory Orders Cinacalcet HCl [Sensipar] 60 mg PO DAILY 09/28/14 Atorvastatin Ca [Lipitor] 40 mg PO HS #30 tablet 10/03/14 cloNIDine HCL [Catapres -] 0.1 mg PO BID #60 tablet 10/03/14 Metoclopramide HCl [Reglan] 5 mg PO TID #0 tablet 04/28/16 Pantoprazole Sodium [Protonix] 40 mg PO DAILY #0 tablet.dr 04/28/16 Sevelamer Carbonate [Renvela -] 2,400 mg PO TID 04/28/16 Ammonium Lactate Lotion [Lac-Hydrin 12] 1 applic TP BID PRN bottle 02/08/18 Metoprolol Tartrate [Lopressor -] 25 mg PO BID tablet 02/28/18 Clopidogrel Bisulfate [Plavix] 75 mg PO DAILY #30 tablet 08/19/18 Apixaban [Eliquis -] 5 mg PO BID tablet 12/29/19 Carvedilol [Coreg -] 25 mg PO BID tablet 12/29/19 Epoetin Lenny [Procrit -] 20,000 unit SQ Q2D ml 12/29/19 Epoetin Lenny [Procrit -] 20,000 unit SQ Q2D ml 12/29/19 Insulin Sliding Scale [Novolog Vial Sliding Scale -] 1 vial SQ ACHS units 12/29/19 Lisinopril [Prinivil] 10 mg PO DAILY tablet 12/29/19 Insulin Sliding Scale [Novolog Vial Sliding Scale -] 1 vial SQ ACHS units 01/03/20 Anemia: Yes Asthma: No Cancer: No Cardiac Disorders: No CVA: No COPD: No CHF: No DVT: No Dementia: No Diabetes: Yes Dialysis: Yes GI Disorders: Yes (DIVERTICULOSIS, COLON POLYPS, GERD) Disorders: (ESRD ON DIALYSIS M- W- F) HTN: Yes Hypercholesterolemia: Yes Liver Disease: Yes (ELEVATED LIVER ENZYMES) Seizures: No Thyroid Disease: No - Surgical History Abdominal Surgery: No Appendectomy: No Cardiac Surgery: No Cholecystectomy: No Lung Surgery: No Neurologic Surgery: No Orthopedic Surgery: Yes (ROTATOR CUFF REPAIR L SHOULDER) - Immunization History Immunization Up to Date: Yes - Psycho-Social/Smoking History Smoking History: Never smoked Have you smoked in the past 12 months: No Number of Cigarettes Smoked Daily: 0 Cigars Per Day: 0
--- NOTE | 2020-07-31 19:35 | PDOC ---
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 Patient suffered from a fall five days ago. The closest hospital was [facility]. There they CT scan him and found out he got contiguous right ribs fracture. Quickly, they transferred him to [facility] where he got admitted for 5 days. His last dialysis was yesterday. He had physical therapy today where they sucessfully walked him 20 steps. He refused rehab offer and got sent home. At home, he almost failed but quickly the and son caught me. They wanted him to be seen here and hopefully admitted. He denies new onset weakness, numbness, tingling, cp/sob, f/c, n/v, abdominal pain. PMHX: as in HPI PSHX: toe amputations. Meds: on eliquis. Allergies: pork containing products. 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 ROS GENERAL/CONSTITUTIONAL: No fever or chills. + weakness. HEAD, EYES, EARS, NOSE AND THROAT: No change in vision. No ear pain or discharge. No sore throat. CARDIOVASCULAR: No chest pain or shortness of breath RESPIRATORY: No cough, wheezing, or hemoptysis. GASTROINTESTINAL: No nausea, vomiting, diarrhea or constipation. GENITOURINARY: No dysuria, frequency, or change in urination. MUSCULOSKELETAL: +Right sided plank pain. +back pain. SKIN: No rash NEUROLOGIC: No headache, vertigo, loss of consciousness, or change in strength/sensation. ENDOCRINE: No increased thirst. No abnormal weight change HEMATOLOGIC/LYMPHATIC: No anemia, easy bleeding, or history of blood clots. ALLERGIC/IMMUNOLOGIC: No hives or skin allergy. PE: SpO2 93. GENERAL: Awake, alert, and fully oriented, in no acute distress. Morbidly obese with padded boots. HEAD: No signs of trauma, normocephalic, atraumatic EYES: PERRLA, EOMI, sclera anicteric, conjunctiva clear ENT: Auricles normal inspection, hearing grossly normal, nares patent, oropharynx clear without exudates. Moist mucosa NECK: Normal ROM, supple, no lymphadenopathy LUNGS: No distress, speaks full sentences, clear to auscultation bilaterally HEART: Regular rate and rhythm, normal S1 and S2, no murmurs, rubs or gallops, peripheral pulses normal and equal bilaterally. ABDOMEN: Soft, nontender, protrubing, normoactive bowel sounds. No guarding, no rebound. No masses EXTREMITIES : Normal range of motion, 1+ pitting edema wearing padded boots. no calves tenderness. NEUROLOGICAL: Cranial nerves II through XII grossly intact. Normal speech, no focal sensorimotor deficits SKIN: Warm, Dry, normal turgor, no rashes or lesions noted 07/31/20 20:07 08/01/20 06:37 Past History - Medical History Allergies/Adverse Reactions: Allergies Allergy/AdvReac Type Severity Reaction Status Date / Time Pork/Porcine Containing Allergy Verified 07/31/20 18:35 Products Home Medications: Ambulatory Orders Atorvastatin Ca [Lipitor] 40 mg PO HS #30 tablet 10/03/14 cloNIDine HCL [Catapres -] 0.1 mg PO BID #60 tablet 10/03/14 Metoclopramide HCl [Reglan] 5 mg PO TID #0 tablet 04/28/16 Pantoprazole Sodium [Protonix] 40 mg PO DAILY #0 tablet. 04/28/16 Sevelamer Carbonate [Renvela -] 2,400 mg PO TID 04/28/16 Ammonium Lactate Lotion [Lac-Hydrin 12] 1 applic TP BID PRN bottle 02/08/18 Clopidogrel Bisulfate [Plavix] 75 mg PO DAILY #30 tablet 08/19/18 Apixaban [Eliquis -] 5 mg PO BID tablet 12/29/19 Carvedilol [Coreg -] 25 mg PO BID tablet 12/29/19 Epoetin Lenny [Procrit -] 20,000 unit SQ Q2D ml 12/29/19 Epoetin Lenny [Procrit -] 20,000 unit SQ Q2D ml 12/29/19 Lisinopril [Prinivil] 10 mg PO DAILY tablet 12/29/19 Insulin Degludec [Tresiba] 24 units DAILY 07/31/20 Anemia: Yes Asthma: No Cancer: No Cardiac Disorders: No CVA: No COPD: No CHF: No DVT: No Dementia: No Diabetes: Yes Dialysis: Yes GI Disorders: Yes (DIVERTICULOSIS, COLON POLYPS, GERD) Disorders: (ESRD ON DIALYSIS - - ) HTN: Yes Hypercholesterolemia: Yes Liver Disease: Yes (ELEVATED LIVER ENZYMES) Seizures: No Thyroid Disease: No - Surgical History Abdominal Surgery: No Appendectomy: No Cardiac Surgery: No Cholecystectomy: No Lung Surgery: No Neurologic Surgery: No Orthopedic Surgery: Yes (ROTATOR CUFF REPAIR L SHOULDER) - Immunization History Immunization Up to Date: Yes - Psycho-Social/Smoking History Smoking History: Never smoked Have you smoked in the past 12 months: No Number of Cigarettes Smoked Daily: 0 Cigars Per Day: 0 Information on smoking cessation initiated: No - Substance Abuse Hx (Audit-C & DAST Scrn) How often the patient has a drink containing alcohol: Never Score: In Men: 4 or > Positive; In Women: 3 or > Positive: 0 Screen Result (Pos requires Nsg. Audit-10AR): Negative In the last yr the pt used illegal drug/Rx for NonMed reason: No Score: Yes response is considered Positive: 0 Screen Result (Positive result requires Nsg. 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 -EKG showed atrial fibrilation, vent rate of 98, irregular rhythm. QTc 457. Compared to previous EKG -will do basic lab work -plan to admit for presyncope, not safe to discharge home. Patient needs to be in subacute rehab. -bloodwork showed elevated WBC 11, and chemistry was unbalanced but patient is a dialysis patient. -Admitted under Dr. Wilson. 08/01/20 03:06 Discharge - Discharge Information Problems reviewed: Yes Clinical Impression/Diagnosis: Near syncope Condition: Fair - Admission Yes - Follow up/Referral - Patient Discharge Instructions - Post Discharge Activity
--- NOTE | 2020-07-31 19:54 | PDOC ---
Attending Attestation - Resident Resident Name: Marcos Carmona - ED Attending Attestation I have performed the following: I have examined & evaluated the patient, The case was reviewed & discussed with the resident, I agree w/resident's findings & plan - HPI HPI: 07/31/20 20:26 see resident hpi - Physicial Exam PE: 07/31/20 20:26 see resident exam - Medical Decision Making 07/31/20 20:33 64-year-old male status post near syncope with recent discharge from [facility] for fall resulting in multiple rib fractures We will proceed with syncope evaluation and admit for observation and PT evaluation Discharge - Discharge Information Problems reviewed: Yes Clinical Impression/Diagnosis: Near syncope - Follow up/Referral Referrals: Jameel Jauregui MD [Primary Care Provider] - - Patient Discharge Instructions - Post Discharge Activity
--- OUTSIDE RECORDS SUMMARY | 2020-07-31 20:45 | XMS ---
:1955 Author Organization [facility] Care Team Providers Name Role Phone CARMITA CHEW Unavailable Unavailable Kendrick, Pushpinder Unavailable Kendrick, Pushpinder Unavailable Kendrick, Pushpinder Unavailable Kendrick, Pushpinder Unavailable Kendrick, Pushpinder Unavailable Kendrick, Pushpinder Unavailable Kendrick, Pushpinder Unavailable Kendrick, Pushpinder Unavailable EMERGENCY SERVICE, X Unavailable Unavailable Re-disclosure Warning The records that you are about to access may contain information from federally- assisted alcohol or drug abuse programs. If such information is present, then the following federally mandated warning applies: This information has been disclosed to you from records protected by federal confidentiality rules (42 CFR part 2). The federal rules prohibit you from making any further disclosure of this information unless further disclosure is expressly permitted by the written consent of the person to whom it pertains or as otherwise permitted by 42 CFR part 2. A general authorization for the release of medical or other information is NOT sufficient for this purpose. The Federal rules restrict any use of the information to criminally investigate or prosecute any alcohol or drug abuse patient.The records that you are about to access may contain highly sensitive health information, the redisclosure of which is protected by Article 27-F of the [facility] Public Health law. If you continue you may haveaccess to information: Regarding HIV / AIDS; Provided by facilities licensed or operated by the [facility] Office of Mental Health; or Provided by the [facility] Office for People With Developmental Disabilities. If such information is present, then the following [facility] mandated warning applies: This information has been disclosed to you from confidential records which are protected by state law. State law prohibits you from making any further disclosure of this information without the specific written consent of the person to whom it pertains, or as otherwise permitted by law. Any unauthorized further disclosure in violation of state law may result in a fine or mcc sentence or both. A general authorization for the release of medical or other information is NOT sufficient authorization for further disclosure. Allergies and Adverse Reactions Type Description Substance Reaction Status Data Source(s ) Drug allergy Unable to Assess Unable to Assess [facility] Corporati on Miscellaneous Pork Pork SIG[facility]ARE allergy ([facility] [place]) Drug allergy porcine porcine [facility] submucosa, submucosa, ([facility] fenestrated fenestrated Extended Car e Center) Encounters Encounter Providers Location Date Indications Data Source(s ) Inpatient Attender: 07/26/2020 TRAUMATIC INJURY [facility], 10:58:[facility] Corporati on BESS CHEWK TRAUMATIC INJURY Patient admitted. [facility]2020 LVL 2 MALE [facility]00 PM EDT 64Y[facility] F[facility] EMERGENCY SERVICE, Corpor ation XAdmitter: CARMITA CHEW LV 2 MALE 64YRS FALL Inpatient Attender: Mikala 6 [facility] 01/03/2020 06:30:00 SIG[facility] ([facility] Kendrick PM EST - 03/09/2020 [facility] 04:29:00 PM EDT Center) Patient discharged. Medications Medication Brand Start Product Dose Route Administrative Pharmacy [facility] Indications Reaction Description Data Name Date Form Instructions Instructions Source(s) senna 8.6 sennos senna 8. 6 mg [facility] mg tablet ide2019 ed tablet ([facility] 06:58: Extended 8.6 MG 58 AM Care Oral EDT Center) Tablet senna 8.6 sennos 02/20/ complet senna 8. 6 mg SIG[facility]ARE mg tablet ides, 2019 ed tablet ([facility] y [facility] 06:58: Extended 8.6 MG 58 AM Care Oral EDT Center) Tablet Miralax POLYET 02/20/ complet Miralax 17 [facility] (polyethyle HYLENE 2020 ed gram/dose ( [facility] ne glycol GLYCOL 06:56: oral powder Extended 3350) 17 3350 51 AM Care gram/dose 49944 EDT Center) oral powder MG Powder for Oral Soluti on [Johana ax] Miralax POLYET 02/20/ complet Miralax 17 [facility] (polyethyle HYLENE 2020 ed gram/dose ( [facility] ne glycol GLYCOL 06:56: oral powder Extended 3350) 17 3350 51 AM Care gram/dose 20684 EDT Center) oral powder MG Powder for Oral Soluti on [Johana ax] Plaquenil [id number] 02/09/ complet Plaqueni l [facility] (hydroxychl 15674 2019 ed 200 mg (Rege ncy oroquine) 08:00: tablet Extend ed 200 mg 00 AM Care tablet EDT Center) Zithromax 534308 02/08/ complet Zithroma x [facility] Z-Gabino 52688 2020 ed Z-Gabino 250 mg (Rege ncy (azithromyc 02:03: tablet Exte nded in) 250 mg 19 AM Care tablet EDT Center) Maria Ines-Tussin [id number] 02/03/ complet Maria Ines-T ussin SIGMACARE (guaifenesi 81010 2019 ed 100 mg/5 mL ([facility] n) 100 mg/5 02:04: oral liquid Extended mL oral 39 PM Care liquid EDT Center) Maria Ines-Tussin [id number] 02/03/ complet Maria Ines-T ussin SIGMACARE (guaifenesi 47496 2019 ed 100 mg/5 mL ([facility] n) 100 mg/5 02:04: oral liquid Extended mL oral 39 PM Care liquid EDT Center) Basaglar 3 ML 01/30/ complet Basaglar SI [facility] KwikPen Insuli 2020 ed KwikPen ([facility] U-100 n 09:10: U-100 Extended Insulin Glargi 45 AM Insulin 100 Ca re (insulin ne 100 EDT unit/mL ([address]) glargine) UNT/ML mL) 100 unit/mL Pen subcutaneous (3 mL) Inject subcutaneou or s [Basag lar] Basaglar 3 ML 01/30/ complet Basaglar SI [facility] KwikPen Insuli 2020 ed KwikPen ([facility] U-100 n 09:10: U-100 Extended Insulin Glargi 45 AM Insulin 100 Ca re (insulin ne 100 EDT unit/mL ([address] glargine) UNT/ML mL) 100 unit/mL Pen subcutaneous (3 mL) Inject subcutaneou or s [Basag lar] Renvela sevela 01/14/ complet Renvela 80 0 [facility] (sevelamer puneet 2020 ed mg tablet (Reg ency carbonate) carbon 05:36: Exten ded 800 mg ate 15 AM Care tablet 800 MG EDT Center) Oral Tablet [Renve la] Renvela sevela 01/14/ complet Renvela 80 0 [facility] (sevelamer puneet 2020 ed mg tablet (Reg ency carbonate) carbon 05:36: Exten ded 800 mg ate 15 AM Care tablet 800 MG EDT Center) Oral Tablet [Renve la] zinc 137692 01/07/ complet zinc sulfate [facility] sulfate 220 61541 2020 ed 220 mg (Rege ncy mg tablet 05:17: tablet Extend ed 30 AM Care EST Center) zinc 585870 01/07/ complet zinc sulfate [facility] sulfate 220 50378 2020 ed 220 mg (Rege ncy mg tablet 05:17: tablet Extend ed 30 AM Care EST Center) zinc 481378 01/07/ complet zinc sulfate [facility] sulfate 220 63210 2020 ed 220 mg (Rege ncy mg tablet 05:17: tablet Extend ed 30 AM Care EST Center) sevelamer 01/03/ complet sevelamer [facility] HCl 403 mg 2020 ed HCl 403 mg (Re gency capsule 07:43: capsule Extende d 26 PM Care EST Center) ammonium ammoni 01/03/ complet ammonium [facility] lactate 12 um 2020 ed lactate 12 % ( [facility] % lotion lactat 11:18: lotion Exten ded e 120 11 AM Care MG/ML EST Center) Topica l Lotion ammonium ammoni 01/03/ complet ammonium [facility] lactate 12 um 2020 ed lactate 12 % ( [facility] % lotion lactat 11:18: lotion Exten ded e 120 11 AM Care MG/ML EST Center) Topica l Lotion ammonium ammoni 01/03/ complet ammonium [facility] lactate 12 um 2020 ed lactate 12 % ( [facility] % lotion lactat 11:18: lotion Exten ded e 120 11 AM Care MG/ML EST Center) Topica l Lotion metoprolol Metopr 01/03/ complet metopro lol [facility] tartrate 25 olol 2019 ed tartrate 25 ( [facility] mg tablet Tartra 11:12: mg tablet E xtended te 25 33 AM Care MG EST Center) Oral Tablet Tubersol Purifi 01/03/ complet Tubersol 5 [facility] (tuberculin ed 2019 ed tub. ([facility] ppd) 5 tub. Protei 11:12: unit/0.1 mL Extended unit/0.1 mL n 33 AM intradermal Care intradermal Deriva EST injection C enter) injection tive solution solution of Tuberc ulin 50 UNT/ML Inject able Soluti on [Tuber joyce] Tubersol Purifi 01/03/ complet Tubersol 5 [facility] (tuberculin ed 2020 ed tub. ([facility] ppd) 5 tub. Protei 11:12: unit/0.1 mL Extended unit/0.1 mL n 33 AM intradermal Care intradermal Deriva EST injection C enter) injection tive solution solution of Tuberc ulin 50 UNT/ML Inject able Soluti on [Tuber joyce] Tubersol Purifi 01/03/ complet Tubersol 5 [facility] (tuberculin ed 2019 ed tub. ([facility] ppd) 5 tub. Protei 11:12: unit/0.1 mL Extended unit/0.1 mL n 33 AM intradermal Care intradermal Deriva EST injection C enter) injection tive solution solution of Tuberc ulin 50 UNT/ML Inject able Soluti on [Tuber joyce] carvedilol carved 01/03/ complet carvedi lol [facility] 25 mg ilol 2019 ed 25 mg tablet ([facility] tablet 25 MG 11:09: Extended Oral 03 AM Care Tablet EST Center) lisinopril Lisino 01/03/ complet lisinop ril [facility] 10 mg pril 2019 ed 10 mg tablet ([facility] tablet 10 MG 11:09: Extended Oral 03 AM Care Tablet EST Center) lisinopril Lisino 01/03/ complet lisinop ril [facility] 10 mg pril 2020 ed 10 mg tablet ([facility] tablet 10 MG 11:09: Extended Oral 03 AM Care Tablet EST Center) Eliquis apixab 01/03/ complet Eliquis 5 mg [facility] (apixaban) an 2019 ed tablet ([facility] y 5 mg tablet MG 11:09: Extend ed Oral 03 AM Care Tablet EST Center) [Eliqu is] carvedilol carved 01/03/ complet carvedi lol [facility] 25 mg ilol 2020 ed 25 mg tablet ([facility] tablet 25 MG 11:09: Extended Oral 03 AM Care Tablet EST Center) Plavix clopid 01/03/ complet Plavix 75 m g [facility] (clopidogre ogrel 2020 ed tablet (Rege ncy l) 75 mg 75 MG 11:09: Extended tablet Oral 03 AM Care Tablet EST Center) [Plavi x] Plavix clopid 01/03/ complet Plavix 75 m g [facility] (clopidogre ogrel 2020 ed tablet (Rege ncy l) 75 mg 75 MG 11:09: Extended tablet Oral 03 AM Care Tablet EST Center) [Plavi x] Eliquis apixab 01/03/ complet Eliquis 5 mg [facility] (apixaban) an 2019 ed tablet ([facility] y 5 mg tablet MG 11:09: Extend ed Oral 03 AM Care Tablet EST Center) [Eliqu is] carvedilol carved 01/03/ complet carvedi lol [facility] 25 mg ilol 2020 ed 25 mg tablet ([facility] tablet 25 MG 11:09: Extended Oral 03 AM Care Tablet EST Center) lisinopril Lisino 01/03/ complet lisinop ril [facility]ARE 10 mg pril 2020 ed 10 mg tablet ([facility] tablet 10 MG 11:09: Extended Oral 03 AM Care Tablet EST Center) Eliquis apixab 01/03/ complet Eliquis 5 mg SIG[facility] (apixaban) an 2019 ed tablet ([facility] y 5 mg tablet MG 11:09: Extend ed Oral 03 AM Care Tablet EST Center) [Eliqu is] Plavix clopid 01/03/ complet Plavix 75 m g [facility] (clopidogre ogrel 2020 ed tablet (Rege ncy l) 75 mg 75 MG 11:09: Extended tablet Oral 03 AM Care Tablet EST Center) [Plavi x] pantoprazol pantop 01/03/ complet pantop razole SIG[facility]ARE e 40 mg razole 2020 ed 40 mg ([facility] tablet,bora 40 MG 11:09: tablet,del ay Extended yed release Delaye 02 AM ed release Care d EST Center) Releas e Oral Tablet metoclopram Metocl 01/03/ complet metocl oprami [facility]ARE flaco 5 mg oprami 2020 ed de 5 mg ([facility] tablet de 5 11:09: tablet Extended MG 02 AM Care Oral EST Center) Tablet metoclopram Metocl 01/03/ complet metocl oprami SIGMACARE flaco 5 mg oprami 2019 ed de 5 mg ([facility] tablet de 5 11:09: tablet Extended MG 02 AM Care Oral EST Center) Tablet sevelamer sevela 01/03/ complet sevelame r [facility] HCl 800 mg puneet 2019 ed HCl 800 mg (Re gency tablet hydroc 11:09: tablet Extende d hlorid 02 AM Care e 800 EST Center) MG Oral Tablet [RenaG el] pantoprazol pantop 01/03/ complet pantop razole [facility]ARE e 40 mg razole 2019 ed 40 mg ([facility] tablet,bora 40 MG 11:09: tablet,del ay Extended yed release Delaye 02 AM ed release Care d EST Center) Releas e Oral Tablet pantoprazol pantop 01/03/ complet pantop razole SIG[facility]ARE e 40 mg razole 2019 ed 40 mg ([facility] tablet,bora 40 MG 11:09: tablet,del ay Extended yed release Delaye 02 AM ed release Care d EST Center) Releas e Oral Tablet metoclopram Metocl 01/03/ complet metocl oprami SIG[facility]ARE flaco 5 mg oprami 2019 ed de 5 mg ([facility] tablet de 5 11:09: tablet Extended MG 02 AM Care Oral EST Center) Tablet clonidine Clonid 01/03/ complet clonidin e [facility] HCl 0.1 mg ine 2019 ed HCl 0.1 mg (Re gency tablet Hydroc 11:00: tablet Extende d hlorid 22 AM Care e 0.1 EST Center) MG Oral Tablet atorvastati atorva 01/03/ complet atorva statin SIG[facility]ARE n 40 mg statin 2019 ed 40 mg tablet (R egency tablet 40 MG 11:00: Extended Oral 22 AM Care Tablet EST Center) atorvastati atorva atorva statin SIGMACARE n 40 mg statin 2019 ed 40 mg tablet (R egency tablet 40 MG 11:00: Extended Oral 22 AM Care Tablet EST Center) clonidine Clonid complet clonidin e [facility] HCl 0.1 mg ine 2019 ed HCl 0.1 mg (Re gency tablet Hydroc 11:00: tablet Extende d hlorid 22 AM Care e 0.1 EST Center) MG Oral Tablet clonidine Clonid clonidin e [facility] HCl 0.1 mg ine 2019 ed HCl 0.1 mg (Re gency tablet Hydroc 11:00: tablet Extende d hlorid 22 AM Care e 0.1 EST Center) MG Oral Tablet atorvastati atorva atorva statin SIGMACARE n 40 mg statin 2019 ed 40 mg tablet (R egency tablet 40 MG 11:00: Extended Oral 22 AM Care Tablet EST Center) cinacalcet [id number] complet cinacal cet SIGMACARE 60 mg 42684 2019 ed 60 mg tablet (Rege ncy tablet 11:00: Extended 22 AM Care EST Center) Novolog 3 ML complet Novolog SIGM ACARE Flexpen Insuli 2019 ed Flexpen ([facility] U-100 n, 11:00: U-100 Extended Insulin Aspart 16 AM Insulin Care (insulin , EST aspart 100 Cente r) aspart Human unit/mL (3 u-100) 100 mL) aspart 100 UNT/ML subcutaneous unit/mL (3 Pen mL) Inject subcutaneou or s [NovoL og] Novolog 3 ML complet Novolog [facility] Flexpen Insuli 2020 ed Flexpen ([facility] y U-100 n, 11:00: U-100 Extended Insulin Aspart 16 AM Insulin Care (insulin , EST aspart 100 Cente r) aspart Human unit/mL (3 u-100) 100 mL) aspart 100 UNT/ML subcutaneous unit/mL (3 Pen mL) Inject subcutaneou or s [NovoL og] Novolog 3 ML complet Novolog [facility] Flexpen Insuli 2020 ed Flexpen (Reg[facility] y U-100 n, 11:00: U-100 Extended Insulin Aspart 16 AM Insulin Care (insulin , EST aspart 100 Cente r) aspart Human unit/mL (3 u-100) 100 mL) aspart 100 UNT/ML subcutaneous unit/mL (3 Pen mL) Inject subcutaneou or s [NovoL og] acetaminoph Acetam 01/03/ complet acetam inophe SIG[facility]ARE en 325 mg inophe 2020 ed n 325 mg (Reg ency tablet n 325 10:19: tablet Extended MG 43 AM Care Oral EST Center) Tablet acetaminoph Acetam 01/03/ complet acetam inophe SIG[facility]ARE en 325 mg inophe 2019 ed n 325 mg (Reg ency tablet n 325 10:19: tablet Extended MG 43 AM Care Oral EST Center) Tablet acetaminoph Acetam 01/03/ complet acetam inophe SIG[facility]ARE en 325 mg inophe 2020 ed n 325 mg (Reg ency tablet n 325 10:19: tablet Extended MG 43 AM Care Oral EST Center) Tablet Insurance Providers Payer name Policy type Policy ID Covered Covered democrat's Policy P cornell / Coverage democrat ID relationship to Mou[place] Inf ormation type moura [place] [id number] 2 HEALTH PLANS MEDICARE [id number] SP [id number] [id number] Medicare Medicare [id number] Self [id number] [id number] Part A Part A [place] Other [id number] Self [id number] 2 Health Care Medicare Medicare [id number] Self [id number] [id number] Part B Part B Medicare 18 [id number] Self [id number] [id number] Part A [place] [id number] Self [id number] 2 Health Care Medicare 2 [id number] Self [id number] Part B Medicare Medicare [id number] Self [id number] [id number] Part A Part A Medicare 18 [id number] Self [id number] [id number] Part A Medicare Medicare [id number] Self [id number] [id number] Part A Part A [place] [id number] SP [id number] [id number] DIALYSIS [facility] [id number] SP [id number] LIFE INS HUMANA GOLD [id number] SP [id number] PLUS PLAN Problems, Conditions, and Diagnoses Code Display Name Description Problem Type Effective Data Dates Source(s) K30 Functional Functional Diagnosis 02/21/2020 [facility] dyspepsia dyspepsia 12:00:00 AM ([facility] ED Extended [facility] [place]) K59.00 Constipation, Constipation, Diagnosis 02/21/2020 SIGMACAR E unspecified unspecified 12:00:00 AM ([facility]) U07.1 COVID-19 COVID-19 Diagnosis 02/09/2020 SIG[facility]ARE 12:00:00 AM ([facility] Extended [facility]) R05 Cough Cough Diagnosis 02/04/2020 SIGMACARE 12:00:00 AM ([facility] Extended [facility]) Z00.8 Encounter for other Encounter for Diagnosis 01/12/2020 SI [facility] general examination other general 12:00:00 AM ( [facility] examination EST Extended [facility] [place]) L89.606 Pressure-induced Pressure-induced Diagnosis 01/09/2020 SI [facility] deep tissue damage deep tissue damage 12:00:00 AM ([facility] of unspecified heel of unspecified EST E xtended Care heel Center) L89.153 Pressure ulcer of Pressure ulcer of Diagnosis 01/09/2020 SIG[facility] sacral region, sacral region, 12:00:00 AM (Rege ncy stage 3 stage 3 EST Extended Care Center) E63.8 Other specified Other specified Diagnosis 01/08/2020 [facility] nutritional nutritional 12:00:00 AM ([facility] deficiencies deficiencies EST Extended C are Center) B35.1 Tinea unguium Tinea unguium Diagnosis 01/04/2020 SIG[facility]AR E 12:00:00 AM ([facility] EST Extended Care Center) R26.2 Difficulty in Difficulty in Diagnosis 01/04/2020 SIG[facility]AR E walking, not walking, not 12:00:00 AM ([facility] elsewhere elsewhere EST Extended Care classified classified Center) 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 01/03/2020 SI [facility] dialysis renal dialysis 12:00:00 AM ([facility] EST Extended Care Center) S21.90XS Unspecified open Unsp open wound of Diagnosis 01/03/2020 SIG[facility] wound of unspecified part 12:00:00 AM ([facility] y unspecified part of of thorax, sequela EST Extended Care thorax, sequela Center) L85.3 Xerosis cutis Xerosis cutis Diagnosis 01/03/2020 SIGMACAR E 12:00:00 AM ([facility] Extended [facility] [place]) Z11.1 Encounter for Encounter for Diagnosis 01/03/2020 SIGMACAR E screening for screening for 12:00:00 AM ([facility] y respiratory respiratory EST Extended Car e tuberculosis tuberculosis Center) Z23 Encounter for Encounter for Diagnosis 01/03/2020 SIGMACAR E immunization immunization 12:00:00 AM ([facility] Care [place]) I73.9 Peripheral vascular Peripheral Diagnosis 01/03/2020 [facility] disease, vascular disease, 12:00:00 AM ([facility] unspecified unspecified EST Extended Car e Center) N18.6 End stage renal End stage renal Diagnosis 01/03/2020 [facility] disease disease 12:00:00 AM ([facility] Extended [facility] [place]) I48.20 Chronic atrial Chronic atrial Diagnosis 01/03/2020 SIGMAC ARE fibrillation, fibrillation, 12:00:00 AM ([facility] y unspecified unspecified EST Extended Car e [place]) I10 Essential (primary) Essential Diagnosis 01/03/2020 [facility] hypertension (primary) 12:00:00 AM ([facility] hypertension [facility] Extended Car e [place]) N25.0 Renal Renal Diagnosis 01/03/2020 [facility] osteodystrophy osteodystrophy 12:00:00 AM (Rege ncy [facility] Extended Care [place]) K21.9 Gastro-esophageal Gastro-esophageal Diagnosis 01/03/2020 [facility] reflux disease reflux disease 12:00:00 AM (Rege ncy without esophagitis without EST Exten ded Care esophagitis Center) R11.2 Nausea with Nausea with Diagnosis 01/03/2020 [facility] vomiting, vomiting, 12:00:00 AM ([facility] unspecified unspecified EST Extended Car e [place]) E78.5 Hyperlipidemia, Hyperlipidemia, Diagnosis 01/03/2020 [facility] unspecified unspecified 12:00:00 AM ([facility] Extended [facility] [place]) I11.9 Hypertensive heart Hypertensive heart Diagnosis 0 [facility] disease without disease without 12:00:00 AM (Re gen heart failure heart failure [facility] Extended Care [place]) E83.52 Hypercalcemia Hypercalcemia Diagnosis 01/03/2020 SIGMACAR E 12:00:00 AM ([facility] Extended [facility] [place]) E11.9 Type 2 diabetes Type 2 diabetes Diagnosis 01/03/2020 [facility] mellitus without mellitus without 12:00:00 AM ( [facility] complications complications EST Extended Care [place]) M62.81 Muscle weakness Muscle weakness Diagnosis 01/03/2020 [facility] (generalized) (generalized) 12:00:00 AM ([facility] y [facility] Extended [facility]) R52 Pain, unspecified Pain, unspecified Diagnosis 01/03/2020 [facility] 12:00:00 AM ([facility]) Z00.00 Encounter for Encntr for general Diagnosis 01/03/2020 SIG [facility] general adult adult medical exam 12:00:00 AM (R egency medical examination w/o abnormal EST Ext ended Care without abnormal findings Center) findings Results ID Date Data Source [id number] 07/26/2020 04:45:00 PM EDT [facility] Name Value Range Interpretation Description Data Sup porting Code Source(s) Document(s ) SARS [facility] coronavirus 2 RNA This lab was ordered by Wil lutz/Yunior and reported by [facility]. ID Date Data Source [id number] 04/03/2020 12:00:00 AM EDT [facility] Name Value Range Interpretation Code Description Data Kyleigh rce(s) Supporting Document(s ) 2018-nCoV [facility] RNA XXX RADHA+probe- Imp This lab was ordered by [facility] and reported by [employer] ID Date Data Source [id number] 03/27/2020 12:00:00 AM EDT [facility] Name Value Range Interpretation Code Description Data Kyleigh rce(s) Supporting Document(s ) 2018-nCoV [facility] RNA XXX RADHA+probe- Imp This lab was ordered by [facility] and reported by [employer] ID Date Data Source [id number] 03/12/2020 12:00:00 PM EDT [facility] Name Value Range Interpretation Description Data Sup porting Code Source(s) Document(s ) SARS CoV-2 [facility] Interpretation This lab was ordered by Christiano Rojas esau and reported by [facility]. Procedure
[2020-07-31 21:25] LABS: BASO % 0.3 % (0-2.0); EOS % 0.9 % (0-4.5); HEMATOCRIT 40.3 % (35.4-49); HEMOGLOBIN 13.2 GM/dL (11.7-16.9); LYMPH % 9.7 % (8-40); MCH 28.5 pg (25.7-33.7); MCHC 32.7 g/dl (32.0-35.9); MEAN CELL VOLUME 87.3 fl (80-96); MEAN PLT VOLUME 10.7 fl (7.5-11.1); MONO % 10.3 % (3.8-10.2); NEUT % 78.8 % (42.8-82.8); PLATELET COUNT 154 K/MM3 (134-434); RBC 4.62 M/mm3 (4.00-5.60); RDW 15.2 % (11.9-15.9); WHITE BLOOD COUNT 11.1 K/mm3 (4.0-10.0)
[2020-07-31 21:32] LABS: INR 1.13 (0.83-1.09); PROTHROMBIN TIME (PATIENT) 13.3 SEC (9.7-13.0)
[2020-07-31 21:35] LABS: ACTIVATED PTT 31.1 SECONDS (25.2-36.5)
[2020-07-31 21:59] LABS: ALBUMIN 2.8 g/dl (3.4-5.0); ALK PHOS 183 U/L (45-117); ANION GAP 11 MMOL/L (8-16); BILIRUBIN,TOTAL 1.2 mg/dL (0.2-1); BLOOD UREA NITROGEN 52.5 mg/dL (7-18); CALCIUM 9.2 mg/dL (8.5-10.1); CHLORIDE 93 mmol/L (98-107); CO2 29 mmol/L (21-32); GLUCOSE,RANDOM 187 mg/dL (74-106); N-TERMINAL BNP 22580.2 pg/ml (5-125); POTASSIUM 5.2 mmol/L (3.5-5.1); SGOT/AST 23 U/L (15-37); SGPT/ALT 13 U/L (13-61); SODIUM 132 mmol/L (136-145); TOT PROT 7.2 g/dl (6.4-8.2)
[2020-07-31 22:11] LABS: CREATININE 8.2 mg/dL (0.55-1.3)
--- OUTSIDE RECORDS SUMMARY | 2020-07-31 22:34 | XMS ---
:1955 Author Organization [facility] Care Team Providers Name Role Phone CARMITA [...] is protected by Article 27-F of the [facility] Public Health law. If you continue you may haveaccess to information: Regarding HIV / AIDS; Provided by facilities licensed or operated by the [facility] Office of Mental Health; or Provided by the [facility] Office for People With Developmental Disabilities. If such information is present, then the following [facility] mandated warning applies: This information has been [...] law may result in a fine or group home sentence or both. A general authorization for the release of medical or other information is NOT sufficient authorization for further disclosure. Allergies and Adverse Reactions Type Description Substance Reaction Status Data Source(s ) Drug allergy Unable to Assess Unable to Assess [facility] [place], [place] Corporati on Miscellaneous Pork Pork SIGMACARE allergy ([facility] [place]) Drug allergy porcine porcine SIGMACARE submucosa, submucosa, ([facility] fenestrated fenestrated Extended Car e Center) Encounters Encounter Providers Location Date Indications Data Source(s ) Inpatient Attender: 07/26/2020 TRAUMATIC INJURY [facility], 10:58:00 [facility] TRAUMATIC INJURY Patient admitted. Emergency Attender: [facility] SHELDONYUMIKO, 07/26/2020 [facility]: [facility] EDT 64Y[facility] FALL [facility] EMERGENCY SERVICE, Corpor ation XAdmitter: BESS CHEWK LV 2 MALE 64YRS FALL Inpatient Attender: Mikala 6 [facility] 01/03/2020 06:30:00 SIGMACARE ([facility] PM EST - 03/09/2020 [facility] 04:29:00 PM EDT Center) Patient discharged. Medications Medication Brand Start Product Dose Route Administrative Pharm[facility] Indications Reaction Description Data Name Date Form Instructions Instructions Source(s) senna 8.6 sennos senna 8. 6 mg SIGMACARE mg tablet ide2019 ed tablet ([facility] 06:58: Extended 8.6 MG 58 AM Care Oral EDT Center) Tablet senna 8.6 sennos 02/20/ complet senna 8. 6 mg SIGMACARE mg tablet ides, 2019 ed tablet ([facility] y [facility] 06:58: Extended 8.6 MG 58 AM Care Oral EDT Center) Tablet Miralax POLYET 02/20/ complet Miralax 17 SIGMACARE (polyethyle HYLENE 2020 ed gram/dose ( [facility] glycol GLYCOL 06:56: oral powder Extended 3350) 17 3350 51 AM Care gram/dose 85581 EDT Center) oral powder MG Powder for Oral Soluti on [Johana ax] Miralax POLYET 02/20/ complet Miralax 17 SIGMACARE (polyethyle HYLENE 2020 ed gram/dose ( [facility] glycol GLYCOL 06:56: oral powder Extended 3350) 17 3350 51 AM Care gram/dose 52307 EDT Center) oral powder MG Powder for Oral Soluti on [Johana ax] Plaquenil [id number] 02/09/ complet Plaqueni l SIGMACARE (hydroxychl 65608 2019 ed 200 mg (Re[facility] oroquine) 08:00: tablet Extend ed 200 mg 00 AM Care tablet EDT Center) Zithromax 006607 02/08/ complet Zithroma x SIGMACARE Z-Gabino 05293 2020 ed Z-Gabino 250 mg (Rege [facility] (azithromyc 02:03: tablet Exte nded in) 250 mg 19 AM Care tablet EDT Center) Maria Ines-Tussin [id number] 02/03/ complet Maria Ines-T ussin SIGMACARE (guaifenesi 94208 2019 ed 100 mg/5 mL ([facility]) 100 mg/5 02:04: oral liquid Extended mL oral 39 PM Care liquid EDT Center) Maria Ines-Tussin [id number] 02/03/ complet Maria Ines-T ussin SIGMACARE (guaifenesi 28759 2020 ed 100 mg/5 mL ([facility]) 100 [...] EDT Center) Oral Tablet [Renve la] zinc 020869 01/07/ complet zinc sulfate SIGMACARE sulfate 220 25266 2020 ed 220 mg ([facility] mg tablet 05:17: tablet Extend ed 30 AM Care EST Center) zinc 016920 01/07/ complet zinc sulfate SIGMACARE sulfate 220 97124 2020 ed 220 mg ([facility] mg tablet 05:17: tablet Extend ed 30 AM Care EST Center) zinc 605121 01/07/ complet zinc sulfate SIGMACARE sulfate 220 88888 2020 ed 220 mg ([facility] mg tablet 05:17: tablet Extend ed 30 AM Care EST Center) sevelamer 01/03/ complet sevelamer SIGMACARE HCl 403 mg 2019 ed HCl 403 mg (Re gency capsule [...] 22 AM Care Tablet EST Center) cinacalcet 156950 complet cinacal cet SIGMACARE 60 mg 16768 2019 ed 60 mg tablet (Re[facility] n[facility] [...] name Policy type Policy ID Covered Covered constitution party's Policy P cornell / Coverage constitution party ID relationship to [place] Inf ormation type moura WACISSA [id number] 2 HEALTH PLANS MEDICARE [id number] SP [id number] [id number] Medicare Medicare [id number] Self [id number] [id number] Part A Part A [place] Other [id number] Self [id number] 2 Health Care Medicare Medicare [id number] Self [id number] [id number] Part B Part B Medicare 18 [id number] Self [id number] [id number] Part A [place] [id number] Self [id number] 2 Health Care Medicare 2 [id number] Self [id number] [id number] Part B Medicare Medicare [id number] Self [id number] [id number] Part A Part A Medicare 18 [id number] Self [id number] [id number] Part A Medicare Medicare [id number] Self [id number] [id number] Part A Part A [place] [id number] SP [id number] [id number] DIALYSIS [facility] GUARDIAN [id number] SP [id number] LIFE INS HUMANA GOLD [id number] SP [id number] PLUS PLAN Problems, Conditions, and Diagnoses Code Display Name Description Problem Type Effective Data Dates Source(s) K30 Functional Functional Diagnosis 02/21/2020 SIGMACARE dyspepsia dyspepsia 12:00:00 AM ([facility] EDT Extended Care [place]) K59.00 Constipation, Constipation, Diagnosis 02/21/2020 SIGMACAR E unspecified unspecified 12:00:00 AM ([facility] Extended [facility]) U07.1 COVID-19 COVID-19 Diagnosis 02/09/2020 SIGMACARE 12:00:00 AM ([facility] Extended [facility]) R05 Cough Cough Diagnosis 02/04/2020 SIGMACARE 12:00:00 AM ([facility] Extended [facility]) Z00.8 Encounter for other Encounter for Diagnosis 01/12/2020 SI GMACARE general examination other general 12:00:00 AM ( [facility] examination EST Extended [facility] [place]) L89.606 Pressure-induced Pressure-induced Diagnosis 01/09/2020 SI GMACARE deep tissue damage deep tissue damage 12:00:00 AM ([facility] of unspecified heel of unspecified EST E xtended Care heel Center) L89.153 Pressure ulcer of Pressure ulcer of Diagnosis 01/09/2020 SIGMACARE sacral region, sacral region, 12:00:00 AM (Re[facility] stage 3 stage 3 EST Extended Care Center) E63.8 Other specified Other specified Diagnosis 01/08/2020 SIGM ACARE nutritional nutritional 12:00:00 AM ([facility] deficiencies deficiencies EST Extended C are Center) B35.1 Tinea unguium Tinea unguium Diagnosis 01/04/2020 SIGMACAR E 12:00:00 AM ([facility] EST Extended Care Center) R26.2 Difficulty in Difficulty in Diagnosis 01/04/2020 SIGMACAR E walking, not walking, not 12:00:00 AM ([facility] elsewhere elsewhere EST Extended Care classified classified Center) 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 01/03/2020 SI GMACARE dialysis renal dialysis 12:00:00 AM ([facility] EST Extended Care Center) S21.90XS Unspecified open Unsp open wound of Diagnosis 01/03/2020 SIGMACARE wound of unspecified part 12:00:00 AM ([facility] unspecified part of of thorax, sequela EST Extended Care thorax, sequela Center) L85.3 Xerosis cutis Xerosis cutis Diagnosis 01/03/2020 SIGMACAR E 12:00:00 AM ([facility] Extended [facility] [place]) Z11.1 Encounter for Encounter for Diagnosis 01/03/2020 SIGMACAR E screening for screening for 12:00:00 AM ([facility] y respiratory respiratory [facility] Extended Car e tuberculosis tuberculosis Center) Z23 Encounter for Encounter for Diagnosis 01/03/2020 SIGMACAR E immunization immunization 12:00:00 AM ([facility] Care [place]) I73.9 Peripheral vascular Peripheral Diagnosis 01/03/2020 SIGMA CARE disease, vascular disease, 12:00:00 AM ([facility] unspecified unspecified EST Extended Car e Center) N18.6 End stage renal End stage renal Diagnosis 01/03/2020 SIGM ACARE disease disease 12:00:00 AM ([facility] I48.20 Chronic atrial Chronic atrial Diagnosis 01/03/2020 SIGMAC ARE fibrillation, fibrillation, 12:00:00 AM ([facility] y unspecified unspecified EST Extended Car e [place]) I10 Essential (primary) Essential Diagnosis 01/03/2020 SIGMA CARE hypertension (primary) 12:00:00 AM ([facility] hypertension [facility] Extended Car e [place]) N25.0 Renal Renal Diagnosis 01/03/2020 SIGMACARE osteodystrophy osteodystrophy 12:00:00 AM (Rege ncy [facility] Extended Care [place]) K21.9 Gastro-esophageal Gastro-esophageal Diagnosis 01/03/2020 SIGMACARE reflux disease reflux disease 12:00:00 AM (Re[facility] n[facility] without esophagitis without EST Exten ded Care esophagitis Center) R11.2 Nausea with Nausea with Diagnosis 01/03/2020 SIGMACARE vomiting, vomiting, 12:00:00 AM ([facility] unspecified unspecified [facility] Extended Car e [place]) E78.5 Hyperlipidemia, Hyperlipidemia, Diagnosis 01/03/2020 SIGM ACARE unspecified unspecified 12:00:00 AM ([facility] [place]) I11.9 Hypertensive heart Hypertensive heart Diagnosis 0 SIGMACARE disease without disease without 12:00:00 AM (Re gen heart failure heart failure [facility] Extended Care [place]) E83.52 Hypercalcemia Hypercalcemia Diagnosis 01/03/2020 SIGMACAR E 12:00:00 AM ([facility] Extended [facility] [place]) E11.9 Type 2 diabetes Type 2 diabetes Diagnosis 01/03/2020 SIGM ACARE mellitus without mellitus without 12:00:00 AM ( [facility] complications complications [facility] Extended Care [place]) M62.81 Muscle weakness Muscle weakness Diagnosis 01/03/2020 SIGM ACARE (generalized) (generalized) 12:00:00 AM ([facility]) R52 Pain, unspecified Pain, unspecified Diagnosis 01/03/2020 SIGMACARE 12:00:00 AM ([facility] Z00.00 Encounter for Encntr for general Diagnosis 01/03/2020 SIG MACARE general adult adult medical exam 12:00:00 AM (R egency medical examination w/o abnormal EST Ext ended Care without abnormal findings Center) findings Results ID Date Data Source [id number] 07/26/2020 04:45:00 PM EDT [facility] Name Value Range Interpretation Description Data Sup porting Code Source(s) Document(s ) SARS [facility] coronavirus 2 RNA This lab was ordered by [facility] and reported by [facility]. ID Date Data Source [id number] 04/03/2020 12:00:00 AM EDT [facility] Name Value Range Interpretation Code Description Data Kyleigh rce(s) Supporting Document(s ) 2018-nCoV [facility] RNA XXX RADHA+probe- Imp This lab was ordered by [facility] and reported by [employer] ID Date Data Source [id number] 03/27/2020 12:00:00 AM EDT [facility] Name Value Range Interpretation Code Description Data Kyleigh rce(s) Supporting Document(s ) 2018-nCoV [facility] RNA XXX RADHA+probe- Imp This lab was ordered by [facility] and reported by [employer] ID Date Data Source [id number] 03/12/2020 12:00:00 PM EDT [facility] Name Value Range Interpretation Description Data Sup porting Code Source(s) Document(s ) SARS CoV-2 [facility] Interpretation This lab was ordered by Christiano cifuentes and reported by [employer]. Procedure
[2020-08-01 06:53] LABS: BASO % 0.4 % (0-2.0); EOS % 1.5 % (0-4.5); HEMATOCRIT 38.8 % (35.4-49); HEMOGLOBIN 12.6 GM/dL (11.7-16.9); LYMPH % 13.4 % (8-40); MCHC 32.4 g/dl (32.0-35.9); MEAN CELL VOLUME 86.5 fl (80-96); MEAN PLT VOLUME 10.5 fl (7.5-11.1); MONO % 11.6 % (3.8-10.2); NEUT % 73.1 % (42.8-82.8); PLATELET COUNT 153 K/MM3 (134-434); RBC 4.49 M/mm3 (4.00-5.60); WHITE BLOOD COUNT 8.5 K/mm3 (4.0-10.0)
[2020-08-01 07:23] LABS: ALBUMIN 2.7 g/dl (3.4-5.0); BLOOD UREA NITROGEN 64.5 mg/dL (7-18); CALCIUM 9.2 mg/dL (8.5-10.1); POTASSIUM 4.5 mmol/L (3.5-5.1); TOT PROT 6.6 g/dl (6.4-8.2)
[2020-08-01 07:45] LABS: BILIRUBIN,TOTAL 1.4 mg/dL (0.2-1)
[2020-08-01 07:55] LABS: CREATININE 8.9 mg/dL (0.55-1.3)
[2020-08-01] MEDS: SEVELAMER CARBONATE 800 MG TAB (FP) PO SCH ×3 (08:08→17:26)
[2020-08-01] MEDS ORDERED: CLOPIDOGREL BISULFATE 75 MG TABLET (FP) PO SCH (10:00)
[2020-08-01] MEDS ORDERED: cloNIDine HCL 0.1 MG TABLET PO SCH (10:00)
[2020-08-01] MEDS: PANTOPRAZOLE 40 MG TABLET PO SCH (10:35)
[2020-08-01] MEDS: APIXABAN 5 MG TABLET PO SCH ×2 (10:35→21:58)
[2020-08-01] MEDS: CARVEDILOL 25 MG TABLET (FP) PO SCH ×2 (10:35→21:58)
[2020-08-01] MEDS: LISINOPRIL 10 MG TABLET PO SCH (10:35)
--- NOTE | 2020-08-01 10:55 | CON.CARD ---
Consult Consult Specialty:: cardiology Reason for Consultation:: near-syncope - History of Present Illness Chief Complaint: Pt denies chest pain or dyspnea. History of Present Illness: Mr. Mcfadden is a 64 yr old man with PMH IDDM, ESRD (HD MWF), AF on Eliquis, PSVT, HTN, HLD, PAD (s/p right toe amputation), s/p treatment for left chest abscess 12/2019; mild ascending thoracic aneurysm (followed q 3-6 months by private homemaking rehabilitation consultant), obesity; ?alcohol, now admitted for persistent weakness. Patient had a fall five days ago; at [facility], CT scan found contiguous right rib fractures. He was transferred to [facility] and admitted for 5 days. He had physical therapy today where they successfully walked him 20 steps. He refused rehab offer and was sent home. At home, he almost fell, but his and son caught him. He denies new onset weakness, numbness, tingling, cp/sob, f/c, n/v, abdominal pain. Pt is a [employer]. Last hemodialysis (HD) yesterday. PMHX: as in HPI PSHX: toe amputations. Meds: on eliquis. Allergies: pork containing products. Tob: yes Etoh: yes Rec drugs: no PCP: Jameel Jauregui Cardiology: Dr Jayne Odom Renal Doctor: Elizabet Huntley - History Source History Provided By: Patient, Medical Record Limitations to Obtaining History: Poor Historian - Past Medical History Cardio/Vascular: Yes: AFIB, CAD, CHF (systolic/diastolic), HTN Pulmonary: Yes: Other (no previous chest trauma). No: Asthma, COPD, O2 Dependent, Pneumonia, Previously Intubated Renal/: Yes: Renal Failure, Hemodialysis Infectious Disease: Yes: Other (osteomyelitis) Psych: Yes: Other Musculoskeletal: Yes: Chronic low back pain Endocrine: Yes: Diabetes Mellitus - Past Surgical History Past Surgical History: Yes: Amputation (right 5th toe), AV Fistula/Graft - Alcohol/Substance Use Hx Alcohol Use: No - Smoking History Smoking history: Never smoked Have you smoked in the past 12 months: No Aproximately how many cigarettes per day: 0 - Social History Usual Living Arrangement: With Spouse ADL: Family Assistance History of Recent Travel: No Home Medications - Allergies Allergies/Adverse Reactions: Allergies Allergy/AdvReac Type Severity Reaction Status Date / Time Pork/Porcine Containing Allergy Verified 07/31/20 18:35 Products - Home Medications Home Medications: Ambulatory Orders Atorvastatin Ca [Lipitor] 40 mg PO HS #30 tablet 10/03/14 cloNIDine HCL [Catapres -] 0.1 mg PO BID #60 tablet 10/03/14 Metoclopramide HCl [Reglan] 5 mg PO TID #0 tablet 04/28/16 Pantoprazole Sodium [Protonix] 40 mg PO DAILY #0 tablet. 04/28/16 Sevelamer Carbonate [Renvela -] 2,400 mg PO TID 04/28/16 Ammonium Lactate Lotion [Lac-Hydrin 12] 1 applic TP BID PRN bottle 02/08/18 Clopidogrel Bisulfate [Plavix] 75 mg PO DAILY #30 tablet 08/19/18 Apixaban [Eliquis -] 5 mg PO BID tablet 12/29/19 Carvedilol [Coreg -] 25 mg PO BID tablet 12/29/19 Epoetin Lenny [Procrit -] 20,000 unit SQ Q2D ml 12/29/19 Epoetin Lenny [Procrit -] 20,000 unit SQ Q2D ml 12/29/19 Lisinopril [Prinivil] 10 mg PO DAILY tablet 12/29/19 Insulin Degludec [Tresiba] 24 units DAILY 07/31/20 Review of Systems - Review of Systems Constitutional: reports: Weakness Eyes: reports: No Symptoms HENT: reports: No Symptoms Neck: reports: No Symptoms Cardiovascular: reports: No Symptoms Respiratory: reports: No Symptoms Gastrointestinal: reports: No Symptoms Genitourinary: reports: No Symptoms Breasts: reports: No Symptoms Reported Musculoskeletal: reports: Muscle Weakness Integumentary: reports: No Symptoms Neurological: reports: Unsteady Gait, Weakness Endocrine: reports: No Symptoms Hematology/Lymphatic: reports: No Symptoms Psychiatric: reports: Other - Risk Factors Known Risk Factors: Yes: Age, Gender Vital Signs: Vital Signs Temperature 98.2 F 08/01/20 09:00 Pulse Rate 101 H 08/01/20 09:00 Respiratory Rate 18 08/01/20 09:00 Blood Pressure 139/75 08/01/20 09:00 O2 Sat by Pulse Oximetry (%) 97 08/01/20 09:00 Constitutional: Yes: Obese Eyes: Yes: WNL HENT: Yes: WNL Neck: Yes: WNL Respiratory: Yes: Regular Gastrointestinal: Yes: Soft, Abdomen, Obese Renal/: No: Anuria Cardiovascular: Yes: Pulse Irregular JVD: No Carotid Bruit: No PMI: Displaced Heart Sounds: Yes: S1 (varies in intensity), S2 Murmur: Yes: Systolic Murmur, Grade 2 Musculoskeletal: Yes: Joint Stiffness, Muscle Weakness Extremities: Yes: Cool Edema: Yes Edema: LLE: Trace, RLE: Trace Peripheral Pulses WNL: Yes Integumentary: Yes: WNL Neurological: Yes: Alert, Oriented, Weakness Psychiatric: Yes: Other - Other Data Labs, Other Data: CBC, BMP 08/01/20 06:10 08/01/20 06:10 INR, PTT INR 1.13 (0.83-1.09) H 07/31/20 21:10 Troponin, BNP 07/31/20 08/01/20 21:10 02:28 Troponin I < 0.02 < 0.02 B-Natriuretic Peptide 38134.2 H Troponin, BNP 07/31/20 08/01/20 21:10 02:28 Troponin I < 0.02 < 0.02 B-Natriuretic Peptide 76182.2 H Abnormal Lab Results 08/01/20 08/01/20 06:10 06:10 Monocytes % 11.6 H Sodium 132 L Chloride 92 L BUN 64.5 H Creatinine 8.9 H* Random Glucose 163 H Total Bilirubin 1.4 H AST 12 L Alkaline Phosphatase 162 H Albumin 2.7 L Triglycerides 238 H HDL Cholesterol 19 L Echo: Image Reviewed Ejection Fraction %: LVEF > or = 40 % Imaging - Results Chest X-ray: Image Reviewed EKG: Image Reviewed Assessment/Plan Mr. Mcfadden is a 64 yr old man with PMH of ESRD (HD MWF), AF on carvedilol and Eliquis, HTN, DM, HLD (hypertriglyceridemia), PAD (s/p right toe amputation); s/p treatement for left chest abscess 12/2019, sleep apnea, mild thoracic ascending aortic aneuysm), alcoholic user, obesity, BIBEMS from home for persistent weakness. He is admitted for near-syncope. Systolic CHF; severe LAE (ECHO 12/2019). elevated prolactin (2013). Rec: COVID pending. Serial TNI and EKGs. orthostatic Vital signs Continue carvedilol for HR, BP, systolic CHF; lisinopril. Titrate off Clonidine (on beta blockers) and adjust doses of other meds, as well as consider starting spironolactone. F/u past cardiac workup. Will stop clopidogrel presently (on apixaban; hx falls; no ischemia on 2018 stress MIBI). On atorvastatin; keep LDL < 70 mg/dL. BUN/Cr, electrolytes, daily weight, Is and Os. Prolactin level. Hemodialysis per supervisor brake repair. f/u chest abscess treated 12/2019; per pulmonary, CT was to be repeated a few months later. Nutrition consult may be of benefit, though pt's insight problematic.
--- NOTE | 2020-08-01 11:50 | CON.NEP ---
Consult Consult Specialty:: Nephrology Referred by:: Dr. Wilson Reason for Consultation:: ESRD - History of Present Illness Chief Complaint: Weakness History of Present Illness: This is a 64 year hold male with history of ESRD on HD (MWF), PVD, DM, atrial fibrillation on Eliquis who presented from home with weakness and an inability to ambulate. He was recently admitted to [facility] for syncope and rib fractures. He denies LOC during this last episode of weakness at home. Denies any bowel or bladder incontinence. Denies any CP, shortness of breath, fever or chills. Last dialysis was Wednesday. No leg swelling. - History Source History Provided By: Patient Limitations to Obtaining History: No Limitations - Past Medical History Cardio/Vascular: Yes: AFIB, HTN Pulmonary: Yes: Other (no previous chest trauma). No: Asthma, COPD, O2 Dependent, Pneumonia, Previously Intubated Renal/: Yes: Renal Failure, Hemodialysis Infectious Disease: Yes: Other (osteomyelitis) Endocrine: Yes: Diabetes Mellitus - Past Surgical History Past Surgical History: Yes: Amputation (right 5th toe), AV Fistula/Graft - Alcohol/Substance Use Hx Alcohol Use: No - Smoking History Smoking history: Never smoked Have you smoked in the past 12 months: No Aproximately how many cigarettes per day: 0 - Social History Usual Living Arrangement: With Spouse ADL: Family Assistance History of Recent Travel: No Home Medications - Allergies Allergies/Adverse Reactions: Allergies Allergy/AdvReac Type Severity Reaction Status Date / Time Pork/Porcine Containing Allergy Verified 07/31/20 18:35 Products - Home Medications Home Medications: Ambulatory Orders Atorvastatin Ca [Lipitor] 40 mg PO HS #30 tablet 10/03/14 cloNIDine HCL [Catapres -] 0.1 mg PO BID #60 tablet 10/03/14 Metoclopramide HCl [Reglan] 5 mg PO TID #0 tablet 04/28/16 Pantoprazole Sodium [Protonix] 40 mg PO DAILY #0 tablet. 04/28/16 Sevelamer Carbonate [Renvela -] 2,400 mg PO TID 04/28/16 Ammonium Lactate Lotion [Lac-Hydrin 12] 1 applic TP BID PRN bottle 02/08/18 Clopidogrel Bisulfate [Plavix] 75 mg PO DAILY #30 tablet 08/19/18 Apixaban [Eliquis -] 5 mg PO BID tablet 12/29/19 Carvedilol [Coreg -] 25 mg PO BID tablet 12/29/19 Epoetin Lenny [Procrit -] 20,000 unit SQ Q2D ml 12/29/19 Epoetin Lenny [Procrit -] 20,000 unit SQ Q2D ml 12/29/19 Lisinopril [Prinivil] 10 mg PO DAILY tablet 12/29/19 Insulin Degludec [Tresiba] 24 units DAILY 07/31/20 Family Medical History Family History: Unremarkable Review of Systems - Review of Systems Constitutional: reports: Weakness. denies: Fever, Lethargy, Loss of Appetite, Night Sweats Eyes: reports: No Symptoms HENT: reports: No Symptoms Neck: reports: No Symptoms Cardiovascular: denies: Chest Pain, Edema, Palpitations, Shortness of Breath Respiratory: denies: Cough, Hemoptysis, Orthopnea, SOB, SOB on Exertion Genitourinary: reports: No Symptoms Musculoskeletal: reports: No Symptoms Integumentary: reports: No Symptoms Neurological: reports: No Symptoms Nephrology Consult - Height Height: 6 ft - Weight Weight: 117.934 kg - BMI Body Mass Index (BMI): 35.2 - Lab Results CBC,BMP: CBC, BMP 08/01/20 06:10 08/01/20 06:10 Anion Gap: Anion Gap Anion Gap 13 MMOL/L (8-16) 08/01/20 06:10 - Imaging Chest X-ray: Report Reviewed - Physical Examination Vital Signs: Vital Signs Temperature 98.2 F 08/01/20 09:00 Pulse Rate 101 H 08/01/20 09:00 Respiratory Rate 18 08/01/20 09:00 Blood Pressure 139/75 08/01/20 09:00 O2 Sat by Pulse Oximetry (%) 97 08/01/20 09:00 Constitutional: Yes: No Distress, Calm Eyes: Yes: Conjunctiva Clear HENT: Yes: Atraumatic Neck: Yes: Supple Cardiovascular: Yes: Pulse Irregular. No: Murmur, Rub Respiratory: Yes: Regular, CTA Bilaterally, Diminished. No: Rales, Rhonchi, SOB Gastrointestinal: Yes: Soft, Abdomen, Obese. No: Tenderness Access for Hemodialysis: AV Fistula Extremities: No: Cold, Cool, Cyanosis Edema: No Assessment/Plan 64 year hold male with history of ESRD on HD (MWF), PVD, DM, atrial fibrillation on Eliquis who presented from home with weakness and an inability to ambulate. 1. Generalized weakness 2. ESRD on HD 3. Recent syncope 4. DM 5. Hypertension 6. Renal Osteodystrophy 7. PVD 8. Atrial fibrillation 9. CKD related Anemia 10. Hyponatremia in setting of renal insufficiency NO urgent indication for dialysis today. Next planned treatment is tomorrow. Renal diet and 1.2L fluid restriction daily. Etiology of weakness unclear. Check blood cultures for occult infection. Check orthostatics Cardiology following Continue current BP meds. No LIZZIE needed as Hgb > 10. Continue Phos binder with meals. Thank you Meet Pedro DO
[2020-08-01] MEDS ORDERED: SODIUM CHLORIDE 250 ML IV PRN (11:51)
--- NOTE | 2020-08-01 14:04 | EKG ---
Test Reason : Blood Pressure : / mmHG Vent. Rate : 098 BPM Atrial Rate : 113 BPM P-R Int : 000 ms QRS Dur : 088 ms QT Int : 358 ms P-R-T Axes : 000 -26 030 degrees QTc Int : 457 ms ATRIAL FIBRILLATION ABNORMAL ECG WHEN COMPARED WITH ECG OF 03-JAN-2020 14:09, NONSPECIFIC T WAVE ABNORMALITY, IMPROVED IN LATERAL LEADS Confirmed by CHATO NUNES MD ([id number]) on 08/01/2020 2:03:44 PM Referred By: Confirmed By:CHATO NUNES MD
--- NOTE | 2020-08-01 14:29 | HP ---
Admitting History and Physical - Admission History of Present Illness: Pt is a 64 y/o male w/ PMH significant for Diabetes, ESRD (HD TIW), AFib, PSVT, HTN, HLD, CAD, Anemia, GERD, PAD (s/p right toe amputation), left chest abscess 12/2019; mild ascending thoracic aneurysm (followed q 3-6 months by private body presser), and obesity. Pt had a fall five days ago and went to [facility] where CT scan found contiguous right rib fractures. He was transferred to [facility] and admitted for 5 days. He refused rehab offer and was sent home. At home, he almost fell, but his and son caught him. Pt states that he felt very weak and unable to stand on his legs and thought he was going to pass out but did not have LOC and came to ER. Pt has increased pain to Rt ribs w/ movement and deep inspiration. Pt denies any sob/palpitations. - Past Medical History Cardiovascular: Yes: AFIB, CAD, CHF (systolic/diastolic), HTN Pulmonary: Yes: Other (no previous chest trauma). No: Asthma, COPD, O2 Dependent, Pneumonia, Previously Intubated Renal/: Yes: Renal Failure, Hemodialysis Heme/Onc: Yes: Anemia Infectious Disease: Yes: Other (osteomyelitis) Endocrine: Yes: Diabetes Mellitus - Past Surgical History Past Surgical History: Yes: Amputation (right 5th toe), AV Fistula/Graft - Smoking History Smoking history: Never smoked Have you smoked in the past 12 months: No Aproximately how many cigarettes per day: 0 - Alcohol/Substance Use Hx Alcohol Use: No - Social History ADL: Family Assistance History of Recent Travel: No Home Medications - Allergies Allergies/Adverse Reactions: Allergies Allergy/AdvReac Type Severity Reaction Status Date / Time Pork/Porcine Containing Allergy Verified 07/31/20 18:35 Products - Home Medications Home Medications: Ambulatory Orders Atorvastatin Ca [Lipitor] 40 mg PO HS #30 tablet 10/03/14 cloNIDine HCL [Catapres -] 0.1 mg PO BID #60 tablet 10/03/14 Metoclopramide HCl [Reglan] 5 mg PO TID #0 tablet 04/28/16 Pantoprazole Sodium [Protonix] 40 mg PO DAILY #0 04/28/16 Sevelamer Carbonate [Renvela -] 2,400 mg PO TID 04/28/16 Ammonium Lactate Lotion [Lac-Hydrin 12] 1 applic TP BID PRN bottle 02/08/18 Clopidogrel Bisulfate [Plavix] 75 mg PO DAILY #30 tablet 08/19/18 Apixaban [Eliquis -] 5 mg PO BID tablet 12/29/19 Carvedilol [Coreg -] 25 mg PO BID tablet 12/29/19 Epoetin Lenny [Procrit -] 20,000 unit SQ Q2D ml 12/29/19 Epoetin Lenny [Procrit -] 20,000 unit SQ Q2D ml 12/29/19 Lisinopril [Prinivil] 10 mg PO DAILY tablet 12/29/19 Insulin Degludec [Tresiba] 24 units DAILY 07/31/20 Family Medical History Family History: Unremarkable Review of Systems - Review of Systems Constitutional: reports: Weakness Eyes: reports: No Symptoms HENT: reports: No Symptoms Neck: reports: No Symptoms Cardiovascular: reports: No Symptoms Respiratory: reports: No Symptoms Gastrointestinal: reports: No Symptoms Genitourinary: reports: No Symptoms Physical Examination Vital Signs: Vital Signs Temperature 98.0 F 08/01/20 14:05 Pulse Rate 99 H 08/01/20 14:05 Respiratory Rate 18 08/01/20 14:05 Blood Pressure 139/88 08/01/20 14:05 O2 Sat by Pulse Oximetry (%) 97 08/01/20 09:00 Constitutional: Yes: Well Nourished Eyes: Yes: WNL HENT: Yes: WNL, Atraumatic Neck: Yes: WNL, Supple Cardiovascular: Yes: Pulse Irregular Respiratory: Yes: Dullness Gastrointestinal: Yes: WNL, Normal Bowel Sounds, Soft, Abdomen, Obese Musculoskeletal: Yes: WNL Extremities: Yes: WNL, Other (AV graft) Edema: No Neurological: Yes: WNL, Alert, Oriented ...Motor Strength: WNL Labs: CBC, BMP 08/01/20 06:10 08/01/20 06:10 Problem List - Problems (1) Near syncope Assessment/Plan: ?Due to weakness ?Orthostatic hypotension Pt found to have elevated BNP Admit to tele serial cpk/troponin Cardio/renal consults Will need probable placement in STR Code(s): R55 - SYNCOPE AND COLLAPSE (2) ESRD (end stage renal disease) Assessment/Plan: Dialysis as per renal Monitor bun/creatinine Code(s): N18.6 - END STAGE RENAL DISEASE (3) Rib fractures Assessment/Plan: Monitor Pain Need to encourage OOB to chair Code(s): S22.39XA - FRACTURE OF ONE RIB, UNSP SIDE, INIT FOR CLOS FX (4) Atrial fibrillation Assessment/Plan: Heart rate controlled Cont eliquis/BB Code(s): I48.91 - UNSPECIFIED ATRIAL FIBRILLATION (5) Diabetes Assessment/Plan: Cont sliding scale w/ coverage Code(s): E11.9 - TYPE 2 DIABETES MELLITUS WITHOUT COMPLICATIONS Qualifiers: Diabetes mellitus skilled nursing insulin use: unspecified skilled nursing insulin use status Diabetes mellitus complication status: with circulatory complication (6) HTN (hypertension) Assessment/Plan: Monitor for orthostatics Clonidine to be dc'ed as per cardio Code(s): I10 - ESSENTIAL (PRIMARY) HYPERTENSION (7) HLD (hyperlipidemia) Code(s): E78.5 - HYPERLIPIDEMIA, UNSPECIFIED (8) PAD (peripheral artery disease) Assessment/Plan: Pt is on plavix Code(s): I73.9 - PERIPHERAL VASCULAR DISEASE, UNSPECIFIED (9) Thoracic ascending aortic aneurysm Code(s): I71.2 - THORACIC AORTIC ANEURYSM, WITHOUT RUPTURE
[2020-08-01] MEDS ORDERED: ACETAMINOPHEN 325 MG TABLET (FP) PO ONE (15:15)
[2020-08-01] MEDS: ATORVASTATIN CA 40 MG TABLET (FP) PO SCH (21:58)
[2020-08-01] MEDS: cloNIDine HCL 0.1 MG TABLET PO SCH (21:58)
[2020-08-02] MEDS: ACETAMINOPHEN 325 MG TABLET (FP) PO PRN ×2 (05:44→11:47)
--- NOTE | 2020-08-02 08:24 | PN ---
Progress Note, Physician History of Present Illness: Mr. Mcfadden is a 64 yr old man with PMH IDDM, ESRD (HD MWF), AF on Eliquis, PSVT, HTN, HLD, PAD (s/p right toe amputation), s/p treatment for left chest abscess 12/2019; mild ascending thoracic aneurysm (followed q 3-6 months by private pocket secretary assembler), obesity; ?alcohol, now admitted for persistent weakness. Patient had a fall five days ago; at [facility], CT scan found contiguous right rib fractures. He was transferred to [facility] and admitted for 5 days. He had physical therapy today where they successfully walked him 20 steps. He refused rehab offer and was sent home. At home, he almost fell, but his and son caught him. He denies new onset weakness, numbness, tingling, cp/sob, f/c, n/v, abdominal pain. Pt is a [employer]. Last hemodialysis (HD) yesterday. PMHX: as in HPI PSHX: toe amputations. Meds: on eliquis. Allergies: pork containing products. Tob: yes Etoh: yes Rec drugs: no PCP: Jameel Jauregui Cardiology: Dr Jayne Odom Renal Doctor: Elizabet Huntley - Current Medication List Current Medications: Active Medications Acetaminophen (Tylenol -) 650 mg PO Q4H PRN PRN Reason: PAIN 1-3 Last Admin: 08/02/20 05:44 Dose: 650 mg Documented by: Apixaban (Eliquis -) 5 mg PO BID [facility] Last Admin: 08/01/20 21:58 Dose: 5 mg Documented by: Atorvastatin Calcium (Lipitor -) 40 mg PO HS [facility] Last Admin: 08/01/20 21:58 Dose: 40 mg Documented by: Carvedilol (Coreg -) 25 mg PO BID [facility] Last Admin: 08/01/20 21:58 Dose: 25 mg Documented by: Clonidine (Catapres -) 0.05 mg PO BID [facility] Last Admin: 08/01/20 21:58 Dose: 0.05 mg Documented by: Sodium Chloride (Normal Saline -) 250 mls @ 3,000 mls/hr IV PRN PRN PRN Reason: Hypotension during Dialysis Stop: 08/02/20 11:51 Lisinopril (Prinivil) 10 mg PO DAILY [facility] Last Admin: 08/01/20 10:35 Dose: 10 mg Documented by: Pantoprazole Sodium (Protonix -) 40 mg PO DAILY [facility] Last Admin: 08/01/20 10:35 Dose: 40 mg Documented by: Sevelamer Carbonate (Renvela -) 2,400 mg PO TIDCM [facility] Last Admin: 08/01/20 17:26 Dose: 2,400 mg Documented by: - Objective Vital Signs: Vital Signs Temperature 98.8 F 08/02/20 07:10 Pulse Rate 89 08/02/20 07:45 Respiratory Rate 18 08/02/20 07:45 Blood Pressure 97/62 08/02/20 07:45 O2 Sat by Pulse Oximetry (%) 96 08/02/20 05:46 Eyes: Yes: WNL, Conjunctiva Clear, EOM Intact HENT: Yes: WNL, Atraumatic, Normocephalic Neck: Yes: WNL, Supple, Trachea Midline Cardiovascular: Yes: Pulse Irregular Respiratory: Yes: WNL, Regular, CTA Bilaterally Gastrointestinal: Yes: WNL, Normal Bowel Sounds Genitourinary: Yes: WNL Musculoskeletal: Yes: WNL Extremities: Yes: WNL Edema: No Integumentary: Yes: WNL Neurological: Yes: WNL, Alert, Oriented ...Motor Strength: WNL Psychiatric: Yes: WNL Labs: INR, PTT INR 1.13 (0.83-1.09) H 07/31/20 21:10 Assessment/Plan Mr. Mcfadden is a 64 yr old man with PMH of ESRD (HD MWF), AF on carvedilol and Eliquis, HTN, DM, HLD (hypertriglyceridemia), PAD (s/p right toe amputation); s/p treatement for left chest abscess 12/2019, sleep apnea, mild thoracic ascending aortic aneuysm), alcoholic user, obesity, BIBEMS from home for persistent weakness. He is admitted for near-syncope. Systolic CHF; severe LAE (ECHO 12/2019). elevated prolactin (2013). Rec: COVID pending. Serial TNI and EKGs. orthostatic Vital signs Continue carvedilol for HR, BP, systolic CHF; lisinopril. Titrate off Clonidine (on beta blockers) and adjust doses of other meds, as well as consider starting spironolactone. F/u past cardiac workup. Will stop clopidogrel presently (on apixaban; hx falls; no ischemia on 2018 stress MIBI). On atorvastatin; keep LDL < 70 mg/dL. BUN/Cr, electrolytes, daily weight, Is and Os. Prolactin level. 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 f/u chest abscess treated 12/2019; per pulmonary, CT was to be repeated a few months later. Nutrition consult may be of benefit, though pt's insight problematic.
[2020-08-02 08:29] LABS: HEMOGLOBIN 11.5 GM/dL (11.7-16.9); MCH 28.8 pg (25.7-33.7); MEAN CELL VOLUME 87.2 fl (80-96); MEAN PLT VOLUME 10.6 fl (7.5-11.1); PLATELET COUNT 131 K/MM3 (134-434); RBC 4.01 M/mm3 (4.00-5.60); RDW 15.2 % (11.9-15.9)
[2020-08-02] MEDS: SEVELAMER CARBONATE 800 MG TAB (FP) PO SCH ×4 (08:48→16:45)
[2020-08-02 09:11] LABS: BLOOD UREA NITROGEN 78.5 mg/dL (7-18); CALCIUM 9.1 mg/dL (8.5-10.1); PHOSPHOROUS 7.2 mg/dL (2.5-4.9); POTASSIUM 4.7 mmol/L (3.5-5.1)
[2020-08-02 09:27] LABS: CREATININE 10.5 mg/dL (0.55-1.3)
--- NOTE | 2020-08-02 09:48 | PN ---
Progress Note (short form) - Note Progress Note: Patient seen at bedside FUV right foot wound +neuropathic, Wound right foot Diabetic neuropathy Santyl to wounds daily applied Dr Higuera will follow
[2020-08-02] MEDS ORDERED: EPOETIN ALFA 20,000 UNIT/1 ML VIAL SQ SCH (10:00)
[2020-08-02] MEDS: APIXABAN 5 MG TABLET PO SCH ×2 (11:43→21:50)
[2020-08-02] MEDS: LISINOPRIL 10 MG TABLET PO SCH (11:43)
[2020-08-02] MEDS: PANTOPRAZOLE 40 MG TABLET PO SCH (11:43)
[2020-08-02] MEDS: cloNIDine HCL 0.1 MG TABLET PO SCH ×2 (11:44→21:51)
[2020-08-02] MEDS: CARVEDILOL 25 MG TABLET (FP) PO SCH ×2 (11:44→21:50)
--- NOTE | 2020-08-02 13:47 | PN ---
Progress Note, Physician History of Present Illness: has some pain in ribs - Current Medication List Current Medications: Active Medications Acetaminophen (Tylenol -) 650 mg PO Q4H PRN PRN Reason: PAIN 1-3 Last Admin: 08/02/20 11:47 Dose: 650 mg Documented by: Apixaban (Eliquis -) 5 mg PO BID [facility] Last Admin: 08/02/20 11:43 Dose: 5 mg Documented by: Atorvastatin Calcium (Lipitor -) 40 mg PO HS [facility] Last Admin: 08/01/20 21:58 Dose: 40 mg Documented by: Carvedilol (Coreg -) 25 mg PO BID [facility] Last Admin: 08/02/20 11:44 Dose: 25 mg Documented by: Clonidine (Catapres -) 0.05 mg PO BID [facility] Last Admin: 08/02/20 11:44 Dose: 0.05 mg Documented by: Sodium Chloride (Normal Saline -) 250 mls @ 3,000 mls/hr IV PRN PRN PRN Reason: Hypotension during Dialysis Stop: 08/02/20 11:51 Lisinopril (Prinivil) 10 mg PO DAILY [facility] Last Admin: 08/02/20 11:43 Dose: 10 mg Documented by: Pantoprazole Sodium (Protonix -) 40 mg PO DAILY [facility] Last Admin: 08/02/20 11:43 Dose: 40 mg Documented by: Sevelamer Carbonate (Renvela -) 2,400 mg PO TIDCM [facility] Last Admin: 08/02/20 11:45 Dose: 2,400 mg Documented by: - Objective Vital Signs: Vital Signs Temperature 97.5 F L 08/02/20 10:00 Pulse Rate 90 08/02/20 10:50 Respiratory Rate 18 08/02/20 10:50 Blood Pressure 106/43 L 08/02/20 10:50 O2 Sat by Pulse Oximetry (%) 98 08/02/20 10:00 Constitutional: Yes: No Distress HENT: Yes: Atraumatic Neck: Yes: Supple Cardiovascular: Yes: Pulse Irregular Respiratory: Yes: CTA Bilaterally Gastrointestinal: Yes: Normal Bowel Sounds Extremities: Yes: WNL Neurological: Yes: Alert, Oriented Labs: CBC, BMP 08/02/20 07:15 08/02/20 07:15 INR, PTT INR 1.13 (0.83-1.09) H 07/31/20 21:10 Problem List - Problems (1) Near syncope Assessment/Plan: tele monitoring cardiology on board Code(s): R55 - SYNCOPE AND COLLAPSE (2) Atrial fibrillation Assessment/Plan: on meds Ac Code(s): I48.91 - UNSPECIFIED ATRIAL FIBRILLATION (3) Diabetes Assessment/Plan: sliding scale insulin Code(s): E11.9 - TYPE 2 DIABETES MELLITUS WITHOUT COMPLICATIONS Qualifiers: Diabetes mellitus detention insulin use: unspecified detention insulin use status Diabetes mellitus complication status: with circulatory complication (4) ESRD (end stage renal disease) Code(s): N18.6 - END STAGE RENAL DISEASE (5) HLD (hyperlipidemia) Code(s): E78.5 - HYPERLIPIDEMIA, UNSPECIFIED (6) HTN (hypertension) Code(s): I10 - ESSENTIAL (PRIMARY) HYPERTENSION Assessment/Plan COVERING FOR DR RODRÍGUEZ TODAY
[2020-08-02] MEDS: MORPHINE SULFATE 2 MG/ML VIAL IVPUSH PRN ×2 (14:21→20:27)
--- NOTE | 2020-08-02 15:21 | PN ---
Progress Note, Physician History of Present Illness: Seen and examined at the bedside awake and alert s/p dialysis this morning, tolerated it well with 2kg UF. Has pain on right side of chest where he had his rib fractures. no shortness of breath, abdominal pain, N/V/D. - Current Medication List Current Medications: Active Medications Acetaminophen (Tylenol -) 650 mg PO Q4H PRN PRN Reason: PAIN 1-3 Last Admin: 08/02/20 11:47 Dose: 650 mg Documented by: Apixaban (Eliquis -) 5 mg PO BID [facility] Last Admin: 08/02/20 11:43 Dose: 5 mg Documented by: Atorvastatin Calcium (Lipitor -) 40 mg PO HS [facility] Last Admin: 08/01/20 21:58 Dose: 40 mg Documented by: Carvedilol (Coreg -) 25 mg PO BID [facility] Last Admin: 08/02/20 11:44 Dose: 25 mg Documented by: Clonidine (Catapres -) 0.05 mg PO BID [facility] Last Admin: 08/02/20 11:44 Dose: 0.05 mg Documented by: Sodium Chloride (Normal Saline -) 250 mls @ 3,000 mls/hr IV PRN PRN PRN Reason: Hypotension during Dialysis Stop: 08/02/20 11:51 Insulin Aspart (Novolog Vial Sliding Scale -) 1 vial SQ [facility]; Protocol Lisinopril (Prinivil) 10 mg PO DAILY [facility] Last Admin: 08/02/20 11:43 Dose: 10 mg Documented by: Morphine Sulfate (Morphine Sulfate) 2 mg IVPUSH Q6H PRN PRN Reason: PAIN LEVEL 6-10 Last Admin: 08/02/20 14:21 Dose: 2 mg Documented by: Pantoprazole Sodium (Protonix -) 40 mg PO DAILY [facility] Last Admin: 08/02/20 11:43 Dose: 40 mg Documented by: Sevelamer Carbonate (Renvela -) 2,400 mg PO TIDCM [facility] Last Admin: 08/02/20 11:45 Dose: 2,400 mg Documented by: - Objective Vital Signs: Vital Signs Temperature 98.6 F 08/02/20 14:00 Pulse Rate 93 H 08/02/20 14:00 Respiratory Rate 20 08/02/20 14:00 Blood Pressure 99/54 L 08/02/20 14:00 O2 Sat by Pulse Oximetry (%) 98 09/25/20 10:00 Constitutional: Yes: No Distress, Calm HENT: Yes: Atraumatic Neck: Yes: Supple Cardiovascular: Yes: Regular Rate and Rhythm, Other (chest wall tenderness) Respiratory: Yes: Regular Gastrointestinal: Yes: Soft Extremities: No: Cyanosis Edema: No Neurological: Yes: Alert Labs: CBC, BMP 08/02/20 07:15 08/02/20 07:15 INR, PTT INR 1.13 (0.83-1.09) H 07/31/20 21:10 Assessment/Plan 64 year hold male with history of ESRD on HD (MWF), PVD, DM, atrial fibrillation on Eliquis who presented from home with weakness and an inability to ambulate. 1. Generalized weakness 2. ESRD on HD 3. Recent syncope 4. DM 5. Hypertension 6. Renal Osteodystrophy 7. PVD 8. Atrial fibrillation 9. CKD related Anemia 10. Hyponatremia in setting of renal insufficiency Tolerated dialysis well this AM, next planned dialysis is Wednesday. Renal diet and 1.2L fluid restriction daily. Blood cultures negative thus far, no fevers or leukocytosis. Cardiology following BP is low, trend for now on current meds No LIZZIE needed as Hgb > 10. Continue Phos binder with meals. Thank you Meet Pedro DO
[2020-08-02] MEDS: INSULIN SLIDING SCALE (NOVOLOG) 1 VIAL SQ SCH ×2 (16:44→21:52)
[2020-08-02] MEDS: ATORVASTATIN CA 40 MG TABLET (FP) PO SCH (21:51)
[2020-08-03] MEDS: MORPHINE SULFATE 2 MG/ML VIAL IVPUSH PRN ×3 (06:48→21:53)
[2020-08-03] MEDS: INSULIN SLIDING SCALE (NOVOLOG) 1 VIAL SQ SCH ×4 (07:00→23:02)
[2020-08-03] MEDS: SEVELAMER CARBONATE 800 MG TAB (FP) PO SCH ×3 (08:19→17:41)
--- NOTE | 2020-08-03 09:15 | CONSULT ---
Consult Consult Specialty:: Podiatry Reason for Consultation:: Right heel wound - Past Medical History Cardio/Vascular: Yes: AFIB, CAD, CHF (systolic/diastolic), HTN Pulmonary: Yes: Other (no previous chest trauma). No: Asthma, COPD, O2 Dependent, Pneumonia, Previously Intubated Renal/: Yes: Renal Failure, Hemodialysis Infectious Disease: Yes: Other (osteomyelitis) Psych: Yes: Other Musculoskeletal: Yes: Chronic low back pain Endocrine: Yes: Diabetes Mellitus - Past Surgical History Past Surgical History: Yes: Amputation (right 5th toe), AV Fistula/Graft - Alcohol/Substance Use Hx Alcohol Use: No - Smoking History Smoking history: Never smoked Have you smoked in the past 12 months: No Aproximately how many cigarettes per day: 0 - Social History Usual Living Arrangement: With Spouse ADL: Family Assistance History of Recent Travel: No Home Medications - Allergies Allergies/Adverse Reactions: Allergies Allergy/AdvReac Type Severity Reaction Status Date / Time Pork/Porcine Containing Allergy Verified 07/31/20 18:35 Products - Home Medications Home Medications: Ambulatory Orders Atorvastatin Ca [Lipitor] 40 mg PO HS #30 tablet 10/03/14 cloNIDine HCL [Catapres -] 0.1 mg PO BID #60 tablet 10/03/14 Metoclopramide HCl [Reglan] 5 mg PO TID #0 tablet 04/28/16 Pantoprazole Sodium [Protonix] 40 mg PO DAILY #0 tablet. 04/28/16 Sevelamer Carbonate [Renvela -] 2,400 mg PO TID 04/28/16 Ammonium Lactate Lotion [Lac-Hydrin 12] 1 applic TP BID PRN bottle 02/08/18 Clopidogrel Bisulfate [Plavix] 75 mg PO DAILY #30 tablet 08/19/18 Apixaban [Eliquis -] 5 mg PO BID tablet 12/29/19 Carvedilol [Coreg -] 25 mg PO BID tablet 12/29/19 Epoetin Lenny [Procrit -] 20,000 unit SQ Q2D ml 12/29/19 Epoetin Lenny [Procrit -] 20,000 unit SQ Q2D ml 12/29/19 Lisinopril [Prinivil] 10 mg PO DAILY tablet 12/29/19 Insulin Degludec [Tresiba] 24 units DAILY 07/31/20 Family Medical History Family History: Unremarkable Physical Exam Vital Signs: Vital Signs Temperature 98.1 F 08/03/20 06:00 Pulse Rate 101 H 08/03/20 06:00 Respiratory Rate 17 08/03/20 06:00 Blood Pressure 148/65 08/03/20 06:00 O2 Sat by Pulse Oximetry (%) 97 08/03/20 06:00 Wound/Incision: Yes: Other (+grade 2-3 wound right heel, -drainage, -mal odor,) Labs: CBC, BMP 08/02/20 07:15 08/02/20 07:15 Assessment/Plan om pvd Santyl dressing change daily right heel. Vascular consult Dr. Keller. Will follow. Post op shoe right.
[2020-08-03] MEDS: APIXABAN 5 MG TABLET PO SCH ×2 (09:43→21:52)
[2020-08-03] MEDS: CARVEDILOL 25 MG TABLET (FP) PO SCH ×2 (09:43→21:52)
[2020-08-03] MEDS: LISINOPRIL 10 MG TABLET PO SCH (09:43)
[2020-08-03] MEDS: PANTOPRAZOLE 40 MG TABLET PO SCH (09:43)
[2020-08-03] MEDS: cloNIDine HCL 0.1 MG TABLET PO SCH ×2 (09:44→21:52)
--- NOTE | 2020-08-03 10:51 | PN ---
Progress Note, Physician History of Present Illness: Mr. Mcfadden is a 64 yr old man with PMH IDDM, ESRD (HD MWF), AF on Eliquis, PSVT, HTN, HLD, PAD (s/p right toe amputation), s/p treatment for left chest abscess 12/2019; mild ascending thoracic aneurysm (followed q 3-6 months by private rn field case manager), obesity; ?alcohol, now admitted for persistent weakness. Patient had a fall five days ago; at [facility], CT scan found contiguous right rib fractures. He was transferred to [facility] and admitted for 5 days. He had physical therapy today where they successfully walked him 20 steps. He refused rehab offer and was sent home. At home, he almost fell, but his and son caught him. He denies new onset weakness, numbness, tingling, cp/sob, f/c, n/v, abdominal pain. 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 Last hemodialysis (HD) yesterday. PMHX: as in HPI PSHX: toe amputations. Meds: on eliquis. Allergies: pork containing products. Tob: yes Etoh: yes Rec drugs: no PCP: Jameel Jauregui Cardiology: Dr Jayne Odom Renal Doctor: Elizabet Huntley - Current Medication List Current Medications: Active Medications Acetaminophen (Tylenol -) 650 mg PO Q4H PRN PRN Reason: PAIN 1-3 Last Admin: 08/02/20 11:47 Dose: 650 mg Documented by: Apixaban (Eliquis -) 5 mg PO BID [facility] Last Admin: 08/03/20 09:43 Dose: 5 mg Documented by: Atorvastatin Calcium (Lipitor -) 40 mg PO HS [facility] Last Admin: 08/02/20 21:51 Dose: 40 mg Documented by: Carvedilol (Coreg -) 25 mg PO BID [facility] Last Admin: 08/03/20 09:43 Dose: 25 mg Documented by: Clonidine (Catapres -) 0.05 mg PO BID [facility] Last Admin: 08/03/20 09:44 Dose: 0.05 mg Documented by: Collagenase (Santyl -) 1 applic TP DAILY [facility]; Protocol Sodium Chloride (Normal Saline -) 250 mls @ 3,000 mls/hr IV PRN PRN PRN Reason: Hypotension during Dialysis Stop: 08/02/20 11:51 Insulin Aspart (Novolog Vial Sliding Scale -) 1 vial SQ [facility]; Protocol Last Admin: 08/03/20 07:00 Dose: Not Given Documented by: Lisinopril (Prinivil) 10 mg PO DAILY [facility] Last Admin: 08/03/20 09:43 Dose: 10 mg Documented by: Morphine Sulfate (Morphine Sulfate) 2 mg IVPUSH Q6H PRN PRN Reason: PAIN LEVEL 6-10 Last Admin: 08/03/20 06:48 Dose: 2 mg Documented by: Pantoprazole Sodium (Protonix -) 40 mg PO DAILY [facility] Last Admin: 08/03/20 09:43 Dose: 40 mg Documented by: Sevelamer Carbonate (Renvela -) 2,400 mg PO TIDCM [facility] Last Admin: 08/03/20 08:19 Dose: 2,400 mg Documented by: - Objective Vital Signs: Vital Signs Temperature 98.1 F 08/03/20 06:00 Pulse Rate 99 H 08/03/20 10:00 Respiratory Rate 18 08/03/20 10:00 Blood Pressure 123/72 08/03/20 10:00 O2 Sat by Pulse Oximetry (%) 98 08/03/20 10:00 Eyes: Yes: WNL, Conjunctiva Clear, EOM Intact HENT: Yes: WNL, Atraumatic, Normocephalic Neck: Yes: WNL, Supple, Trachea Midline Cardiovascular: Yes: WNL, Regular Rate and Rhythm Respiratory: Yes: WNL, Regular, CTA Bilaterally Gastrointestinal: Yes: WNL, Normal Bowel Sounds Genitourinary: Yes: WNL Musculoskeletal: Yes: WNL Extremities: Yes: WNL Edema: No Integumentary: Yes: WNL Neurological: Yes: WNL, Alert, Oriented ...Motor Strength: WNL Psychiatric: Yes: WNL Labs: CBC, BMP 08/02/20 07:15 08/02/20 07:15 INR, PTT INR 1.13 (0.83-1.09) H 07/31/20 21:10 Assessment/Plan Mr. Mcfadden is a 64 yr old man with PMH of ESRD (HD MWF), AF on carvedilol and Eliquis, HTN, DM, HLD (hypertriglyceridemia), PAD (s/p right toe amputation); s/p treatement for left chest abscess 12/2019, sleep apnea, mild thoracic ascending aortic aneuysm), alcoholic user, obesity, BIBEMS from home for persistent weakness. He is admitted for near-syncope. Systolic CHF; severe LAE (ECHO 12/2019). elevated prolactin (2013). Rec: COVID pending. Serial TNI and EKGs. orthostatic Vital signs Continue carvedilol for HR, BP, systolic CHF; lisinopril. Titrate off Clonidine (on beta blockers) and adjust doses of other meds, as well as consider starting spironolactone. F/u past cardiac workup. Will stop clopidogrel presently (on apixaban; hx falls; no ischemia on 2018 stress MIBI). On atorvastatin; keep LDL < 70 mg/dL. BUN/Cr, electrolytes, daily weight, Is and Os. Prolactin level. 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 f/u chest abscess treated 12/2019; per pulmonary, CT was to be repeated a few months later. Nutrition consult may be of benefit, though pt's insight problematic.
[2020-08-03] MEDS: COLLAGENASE CLOSTRIDIUM HIST. 30 GRAMS TUBE TP SCH (12:30)
[2020-08-03] MEDS: ATORVASTATIN CA 40 MG TABLET (FP) PO SCH (21:52)
--- NOTE | 2020-08-03 21:58 | PN ---
Progress Note, Physician History of Present Illness: Pt still having pain to rt rib cage - Current Medication List Current Medications: Active Medications Acetaminophen (Tylenol -) 650 mg PO Q4H PRN PRN Reason: PAIN 1-3 Last Admin: 08/02/20 11:47 Dose: 650 mg Documented by: Apixaban (Eliquis -) 5 mg PO BID [facility] Last Admin: 08/03/20 09:43 Dose: 5 mg Documented by: Atorvastatin Calcium (Lipitor -) 40 mg PO HS [facility] Last Admin: 08/02/20 21:51 Dose: 40 mg Documented by: Carvedilol (Coreg -) 25 mg PO BID [facility] Last Admin: 08/03/20 09:43 Dose: 25 mg Documented by: Clonidine (Catapres -) 0.05 mg PO BID [facility] Last Admin: 08/03/20 09:44 Dose: 0.05 mg Documented by: Collagenase (Santyl -) 1 applic TP DAILY [facility]; Protocol Last Admin: 08/03/20 12:30 Dose: 1 applic Documented by: Sodium Chloride (Normal Saline -) 250 mls @ 3,000 mls/hr IV PRN PRN PRN Reason: Hypotension during Dialysis Stop: 08/02/20 11:51 Insulin Aspart (Novolog Vial Sliding Scale -) 1 vial SQ ACHS [facility]; Protocol Last Admin: 08/03/20 17:40 Dose: Not Given Documented by: Lisinopril (Prinivil) 10 mg PO DAILY [facility] Last Admin: 08/03/20 09:43 Dose: 10 mg Documented by: Morphine Sulfate (Morphine Sulfate) 2 mg IVPUSH Q6H PRN PRN Reason: PAIN LEVEL 6-10 Last Admin: 08/03/20 13:29 Dose: 2 mg Documented by: Pantoprazole Sodium (Protonix -) 40 mg PO DAILY [facility] Last Admin: 08/03/20 09:43 Dose: 40 mg Documented by: Sevelamer Carbonate (Renvela -) 2,400 mg PO TIDCM [facility] Last Admin: 08/03/20 17:41 Dose: 2,400 mg Documented by: - Objective Vital Signs: Vital Signs Temperature 98.4 F 08/03/20 14:15 Pulse Rate 93 H 08/03/20 14:15 Respiratory Rate 18 08/03/20 14:15 Blood Pressure 121/68 08/03/20 14:15 O2 Sat by Pulse Oximetry (%) 98 08/03/20 10:00 Neck: Yes: WNL, Supple Cardiovascular: Yes: Pulse Irregular Respiratory: Yes: Diminished Gastrointestinal: Yes: WNL, Normal Bowel Sounds, Soft, Abdomen, Obese Extremities: Yes: Other (AV graft Rt heel ulcer) Edema: LLE: Trace, RLE: Trace Labs: CBC, BMP 08/02/20 07:15 08/02/20 07:15 INR, PTT INR 1.13 (0.83-1.09) H 07/31/20 21:10 Problem List - Problems (1) Near syncope Assessment/Plan: Due to unsteady gait Due to rib fracture Heart rate stable BNP elevated to >22,000 Code(s): R55 - SYNCOPE AND COLLAPSE (2) Atrial fibrillation Assessment/Plan: Heart rate controlled Cont eliquis/BB Code(s): I48.91 - UNSPECIFIED ATRIAL FIBRILLATION (3) Diabetes Assessment/Plan: Cont sliding scale w/ coverage Rt heel ulcer Pt seen by podiatry Cont wound care w/ santyl Code(s): E11.9 - TYPE 2 DIABETES MELLITUS WITHOUT COMPLICATIONS Qualifiers: Diabetes mellitus middle or intermediate school principal insulin use: unspecified middle or intermediate school principal insulin use status Diabetes mellitus complication status: with circulatory complication (4) ESRD (end stage renal disease) Assessment/Plan: Dialysis as per renal Monitor bun/creatinine Code(s): N18.6 - END STAGE RENAL DISEASE (5) HLD (hyperlipidemia) Assessment/Plan: Cont lipitor Code(s): E78.5 - HYPERLIPIDEMIA, UNSPECIFIED (6) HTN (hypertension) Assessment/Plan: Monitor for orthostatics Clonidine to be dc'ed as per cardio Code(s): I10 - ESSENTIAL (PRIMARY) HYPERTENSION (7) Obesity Code(s): E66.9 - OBESITY, UNSPECIFIED (8) PAD (peripheral artery disease) Assessment/Plan: Pt is on plavix Code(s): I73.9 - PERIPHERAL VASCULAR DISEASE, UNSPECIFIED (9) Rib fractures Assessment/Plan: Monitor Pain Need to encourage OOB to chair Code(s): S22.39XA - FRACTURE OF ONE RIB, UNSP SIDE, INIT FOR CLOS FX (10) Systolic CHF Code(s): I50.20 - UNSPECIFIED SYSTOLIC (CONGESTIVE) HEART FAILURE
[2020-08-04] MEDS: INSULIN SLIDING SCALE (NOVOLOG) 1 VIAL SQ SCH ×4 (06:10→21:27)
[2020-08-04 07:10] LABS: BASO % 0.4 % (0-2.0); EOS % 2.5 % (0-4.5); HEMATOCRIT 37.5 % (35.4-49); HEMOGLOBIN 12.4 GM/dL (11.7-16.9); LYMPH % 18.4 % (8-40); MCH 28.3 pg (25.7-33.7); MEAN CELL VOLUME 85.7 fl (80-96); MEAN PLT VOLUME 10.2 fl (7.5-11.1); MONO % 11.6 % (3.8-10.2); NEUT % 67.1 % (42.8-82.8); PLATELET COUNT 159 K/MM3 (134-434); RBC 4.38 M/mm3 (4.00-5.60); RDW 14.9 % (11.9-15.9); WHITE BLOOD COUNT 7.6 K/mm3 (4.0-10.0)
[2020-08-04 07:26] LABS: POTASSIUM 4.6 mmol/L (3.5-5.1)
[2020-08-04 07:36] LABS: ALBUMIN 2.6 g/dl (3.4-5.0); BLOOD UREA NITROGEN 58.5 mg/dL (7-18); CALCIUM 9.3 mg/dL (8.5-10.1); TOT PROT 6.5 g/dl (6.4-8.2)
[2020-08-04 07:43] LABS: CREATININE 8.1 mg/dL (0.55-1.3)
[2020-08-04] MEDS: SEVELAMER CARBONATE 800 MG TAB (FP) PO SCH ×3 (08:07→17:50)
--- NOTE | 2020-08-04 09:44 | PN ---
Progress Note, Physician History of Present Illness: Mr. Mcfadden is a 64 yr old man with PMH IDDM, ESRD (HD MWF), AF on Eliquis, PSVT, HTN, HLD, PAD (s/p right toe amputation), s/p treatment for left chest abscess 12/2019; mild ascending thoracic aneurysm (followed q 3-6 months by private affiliate marketing coordinator), obesity; ?alcohol, now admitted for persistent weakness. Patient had a fall five days ago; at [facility], CT scan found contiguous right rib fractures. He was transferred to [facility] and admitted for 5 days. He had physical therapy today where they successfully walked him 20 steps. He refused rehab offer and was sent home. At home, he almost fell, but his and son caught him. He denies new onset weakness, numbness, tingling, cp/sob, f/c, n/v, abdominal pain. Pt is a Quaker. Last hemodialysis (HD) yesterday. PMHX: as in HPI PSHX: toe amputations. Meds: on eliquis. Allergies: pork containing products. Tob: yes Etoh: yes Rec drugs: no PCP: Jameel Jauregui Cardiology: Dr Jayne Odom Renal Doctor: Elizabet Huntley - Current Medication List Current Medications: Active Medications Acetaminophen (Tylenol -) 650 mg PO Q4H PRN PRN Reason: PAIN 1-3 Last Admin: 08/02/20 11:47 Dose: 650 mg Documented by: Apixaban (Eliquis -) 5 mg PO BID [facility] Last Admin: 08/03/20 21:52 Dose: 5 mg Documented by: Atorvastatin Calcium (Lipitor -) 40 mg PO HS [facility] Last Admin: 08/03/20 21:52 Dose: 40 mg Documented by: Carvedilol (Coreg -) 25 mg PO BID [facility] Last Admin: 08/03/20 21:52 Dose: 25 mg Documented by: Clonidine (Catapres -) 0.05 mg PO BID [facility] Last Admin: 08/03/20 21:52 Dose: 0.05 mg Documented by: Collagenase (Santyl -) 1 applic TP DAILY [facility]; Protocol Last Admin: 08/03/20 12:30 Dose: 1 applic Documented by: Sodium Chloride (Normal Saline -) 250 mls @ 3,000 mls/hr IV PRN PRN PRN Reason: Hypotension during Dialysis Stop: 08/02/20 11:51 Insulin Aspart (Novolog Vial Sliding Scale -) 1 vial SQ ACHS [facility]; Protocol Last Admin: 08/04/20 06:10 Dose: Not Given Documented by: Lisinopril (Prinivil) 10 mg PO DAILY [facility] Last Admin: 08/03/20 09:43 Dose: 10 mg Documented by: Oxycodone HCl (Roxicodone -) 5 mg PO Q6H PRN PRN Reason: PAIN LEVEL 6-10 Pantoprazole Sodium (Protonix -) 40 mg PO DAILY [facility] Last Admin: 08/03/20 09:43 Dose: 40 mg Documented by: Sevelamer Carbonate (Renvela -) 2,400 mg PO TIDCM [facility] Last Admin: 08/04/20 08:07 Dose: 2,400 mg Documented by: - Objective Vital Signs: Vital Signs Temperature 97.3 F L 08/04/20 06:00 Pulse Rate 84 08/04/20 06:00 Respiratory Rate 18 08/04/20 06:00 Blood Pressure 121/83 08/04/20 06:00 O2 Sat by Pulse Oximetry (%) 96 08/04/20 06:00 Eyes: Yes: WNL, Conjunctiva Clear, EOM Intact HENT: Yes: WNL, Atraumatic, Normocephalic Neck: Yes: WNL, Supple, Trachea Midline Cardiovascular: Yes: WNL, Regular Rate and Rhythm Respiratory: Yes: WNL, Regular, CTA Bilaterally Gastrointestinal: Yes: WNL, Normal Bowel Sounds Genitourinary: Yes: WNL Musculoskeletal: Yes: WNL Extremities: Yes: WNL Edema: No Integumentary: Yes: WNL Neurological: Yes: WNL, Alert, Oriented ...Motor Strength: WNL Psychiatric: Yes: WNL Labs: CBC, BMP 08/04/20 06:05 08/04/20 06:05 INR, PTT INR 1.13 (0.83-1.09) H 07/31/20 21:10 Assessment/Plan Mr. Mcfadden is a 64 yr old man with PMH of ESRD (HD MWF), AF on carvedilol and Eliquis, HTN, DM, HLD (hypertriglyceridemia), PAD (s/p right toe amputation); s/p treatement for left chest abscess 12/2019, sleep apnea, mild thoracic ascending aortic aneuysm), alcoholic user, obesity, BIBEMS from home for persist ent weakness. He is admitted for near-syncope. Systolic CHF; severe LAE (ECHO 12/2019). elevated prolactin (2013). Covid negative Rec: Serial TNI and EKGs. orthostatic Vital signs Continue carvedilol for HR, BP, systolic CHF; lisinopril. Titrate off Clonidine (on beta blockers) and adjust doses of other meds, as well as consider starting spironolactone. F/u past cardiac workup. Will stop clopidogrel presently (on apixaban; hx falls; no ischemia on 2018 stress MIBI). On atorvastatin; keep LDL < 70 mg/dL. BUN/Cr, electrolytes, daily weight, Is and Os. Prolactin level. Hemodialysis per senior it assistant. f/u chest abscess treated 12/2019; per pulmonary, CT was to be repeated a few months later. Nutrition consult may be of benefit, though pt's insight problematic.
[2020-08-04] MEDS: oxyCODONE HCL 5 MG TABLET PO PRN ×2 (10:12→18:24)
[2020-08-04] MEDS: LISINOPRIL 10 MG TABLET PO SCH (10:13)
[2020-08-04] MEDS: CARVEDILOL 25 MG TABLET (FP) PO SCH ×2 (10:13→21:24)
[2020-08-04] MEDS: APIXABAN 5 MG TABLET PO SCH ×2 (10:13→21:24)
[2020-08-04] MEDS: PANTOPRAZOLE 40 MG TABLET PO SCH (10:13)
[2020-08-04] MEDS: cloNIDine HCL 0.1 MG TABLET PO SCH ×2 (10:13→21:26)
[2020-08-04] MEDS: COLLAGENASE CLOSTRIDIUM HIST. 30 GRAMS TUBE TP SCH (10:15)
--- NOTE | 2020-08-04 17:18 | PN ---
Progress Note, Physician Chief Complaint: fuv right heel wound. - Current Medication List Current Medications: Active Medications Acetaminophen (Tylenol -) 650 mg PO Q4H PRN PRN Reason: PAIN 1-3 Last Admin: 08/02/20 11:47 Dose: 650 mg Documented by: Apixaban (Eliquis -) 5 mg PO BID [facility] Last Admin: 08/04/20 10:13 Dose: 5 mg Documented by: Atorvastatin Calcium (Lipitor -) 40 mg PO HS [facility] Last Admin: 08/03/20 21:52 Dose: 40 mg Documented by: Carvedilol (Coreg -) 25 mg PO BID [facility] Last Admin: 08/04/20 10:13 Dose: 25 mg Documented by: Clonidine (Catapres -) 0.05 mg PO BID [facility] Last Admin: 08/04/20 10:13 Dose: 0.05 mg Documented by: Collagenase (Santyl -) 1 applic TP DAILY [facility]; Protocol Last Admin: 08/04/20 10:15 Dose: 1 applic Documented by: Sodium Chloride (Normal Saline -) 250 mls @ 3,000 mls/hr IV PRN PRN PRN Reason: Hypotension during Dialysis Stop: 08/02/20 11:51 Insulin Aspart (Novolog Vial Sliding Scale -) 1 vial SQ ACHS [facility]; Protocol Last Admin: 08/04/20 12:11 Dose: 4 units Documented by: Lisinopril (Prinivil) 10 mg PO DAILY [facility] Last Admin: 08/04/20 10:13 Dose: 10 mg Documented by: Oxycodone HCl (Roxicodone -) 5 mg PO Q6H PRN PRN Reason: PAIN LEVEL 6-10 Last Admin: 08/04/20 10:12 Dose: 5 mg Documented by: Pantoprazole Sodium (Protonix -) 40 mg PO DAILY [facility] Last Admin: 08/04/20 10:13 Dose: 40 mg Documented by: Sevelamer Carbonate (Renvela -) 2,400 mg PO TIDCM [facility] Last Admin: 08/04/20 12:10 Dose: 2,400 mg Documented by: - Objective Vital Signs: Vital Signs Temperature 98.3 F 08/04/20 14:22 Pulse Rate 90 08/04/20 14:22 Respiratory Rate 16 08/04/20 14:22 Blood Pressure 108/59 L 08/04/20 14:22 O2 Sat by Pulse Oximetry (%) 97 08/04/20 10:00 Wound/Incision: Yes: Other (grade 2 wound lateral plantar right heel, +dry eschar, -cellulitis, -drainage, -mal odor) Labs: CBC, BMP 08/04/20 06:05 08/04/20 06:05 INR, PTT INR 1.13 (0.83-1.09) H 07/31/20 21:10 Assessment/Plan om? pvd grade 2 wound Santyl dressing change daily right heel. Do not put tape on skin. Vascular consult Dr. Keller. Will follow. Post op shoe right.
--- NOTE | 2020-08-04 20:41 | PN ---
Progress Note, Physician History of Present Illness: Pt still complains of pain to rib cage - Current Medication List Current Medications: Active Medications Acetaminophen (Tylenol -) 650 mg PO Q4H PRN PRN Reason: PAIN 1-3 Last Admin: 08/02/20 11:47 Dose: 650 mg Documented by: Apixaban (Eliquis -) 5 mg PO BID [facility] Last Admin: 08/04/20 10:13 Dose: 5 mg Documented by: Atorvastatin Calcium (Lipitor -) 40 mg PO HS [facility] Last Admin: 08/03/20 21:52 Dose: 40 mg Documented by: Carvedilol (Coreg -) 25 mg PO BID [facility] Last Admin: 08/04/20 10:13 Dose: 25 mg Documented by: Clonidine (Catapres -) 0.05 mg PO BID [facility] Last Admin: 08/04/20 10:13 Dose: 0.05 mg Documented by: Collagenase (Santyl -) 1 applic TP DAILY [facility]; Protocol Last Admin: 08/04/20 10:15 Dose: 1 applic Documented by: Sodium Chloride (Normal Saline -) 250 mls @ 3,000 mls/hr IV PRN PRN PRN Reason: Hypotension during Dialysis Stop: 08/02/20 11:51 Insulin Aspart (Novolog Vial Sliding Scale -) 1 vial SQ ACHS [facility]; Protocol Last Admin: 08/04/20 17:50 Dose: 2 units Documented by: Lisinopril (Prinivil) 10 mg PO DAILY [facility] Last Admin: 08/04/20 10:13 Dose: 10 mg Documented by: Oxycodone HCl (Roxicodone -) 5 mg PO Q6H PRN PRN Reason: PAIN LEVEL 6-10 Last Admin: 08/04/20 18:24 Dose: 5 mg Documented by: Pantoprazole Sodium (Protonix -) 40 mg PO DAILY [facility] Last Admin: 08/04/20 10:13 Dose: 40 mg Documented by: Sevelamer Carbonate (Renvela -) 2,400 mg PO TIDCM [facility] Last Admin: 08/04/20 17:50 Dose: 2,400 mg Documented by: - Objective Vital Signs: Vital Signs Temperature 97.8 F 08/04/20 18:00 Pulse Rate 97 H 08/04/20 18:00 Respiratory Rate 18 08/04/20 18:00 Blood Pressure 154/98 08/04/20 18:00 O2 Sat by Pulse Oximetry (%) 98 08/04/20 18:00 Neck: Yes: WNL, Supple Cardiovascular: Yes: WNL, Regular Rate and Rhythm Respiratory: Yes: WNL, Regular, CTA Bilaterally Gastrointestinal: Yes: WNL, Normal Bowel Sounds, Soft, Abdomen, Obese Extremities: Yes: Other ((+) Rt heel wound) Labs: CBC, BMP 08/04/20 06:05 08/04/20 06:05 INR, PTT INR 1.13 (0.83-1.09) H 07/31/20 21:10 Problem List - Problems (1) Near syncope Assessment/Plan: Due to unsteady gait Due to rib fracture Pt may need STR placement DC planning for am Code(s): R55 - SYNCOPE AND COLLAPSE (2) ESRD (end stage renal disease) Assessment/Plan: Pt on dialysis As per renal Code(s): N18.6 - END STAGE RENAL DISEASE (3) Atrial fibrillation Assessment/Plan: Heart rate controlled Cont eliquis/metoprolol Code(s): I48.91 - UNSPECIFIED ATRIAL FIBRILLATION (4) Diabetes Code(s): E11.9 - TYPE 2 DIABETES MELLITUS WITHOUT COMPLICATIONS Qualifiers: Diabetes mellitus wood finisher insulin use: unspecified snf insulin use status Diabetes mellitus complication status: with circulatory complication (5) Foot ulcer due to secondary DM Code(s): E13.621 - OTHER SPECIFIED DIABETES MELLITUS WITH FOOT ULCER; L97.509 - NON-PRESSURE CHRONIC ULCER OTH PRT UNSP FOOT W UNSP SEVERITY (6) HLD (hyperlipidemia) Code(s): E78.5 - HYPERLIPIDEMIA, UNSPECIFIED (7) HTN (hypertension) Code(s): I10 - ESSENTIAL (PRIMARY) HYPERTENSION
[2020-08-04] MEDS: ATORVASTATIN CA 40 MG TABLET (FP) PO SCH (21:24)
[2020-08-05] MEDS: oxyCODONE HCL 5 MG TABLET PO PRN ×3 (01:49→20:49)
[2020-08-05] MEDS: INSULIN SLIDING SCALE (NOVOLOG) 1 VIAL SQ SCH ×4 (06:26→22:59)
[2020-08-05] MEDS ORDERED: SODIUM CHLORIDE 250 ML IV PRN (07:43)
[2020-08-05] MEDS: SEVELAMER CARBONATE 800 MG TAB (FP) PO SCH ×3 (08:40→20:49)
--- NOTE | 2020-08-05 08:57 | PN ---
Progress Note, Physician History of Present Illness: Mr. Mcfadden is a 64 yr old man with PMH IDDM, ESRD (HD MWF), AF on Eliquis, PSVT, HTN, HLD, PAD (s/p right toe amputation), s/p treatment for left chest abscess 12/2019; mild ascending thoracic aneurysm (followed q 3-6 months by private field artillery fire control man), obesity; ?alcohol, now admitted for persistent weakness. Patient had a fall five days ago; at [facility], CT scan found contiguous right rib fractures. He was transferred to [facility] and admitted for 5 days. He had physical therapy today where they successfully walked him 20 steps. He refused rehab offer and was sent home. At home, he almost fell, but his and son caught him. He denies new onset weakness, numbness, tingling, cp/sob, f/c, n/v, abdominal pain. Pt is a Taoism. Last hemodialysis (HD) yesterday. PMHX: as in HPI PSHX: toe amputations. Meds: on eliquis. Allergies: pork containing products. Tob: yes Etoh: yes Rec drugs: no PCP: Jameel Jauregui Cardiology: Dr Jayne Odom Renal Doctor: Elizabet Huntley - Current Medication List Current Medications: Active Medications Acetaminophen (Tylenol -) 650 mg PO Q4H PRN PRN Reason: PAIN 1-3 Last Admin: 08/02/20 11:47 Dose: 650 mg Documented by: Apixaban (Eliquis -) 5 mg PO BID [facility] Last Admin: 08/04/20 21:24 Dose: 5 mg Documented by: Atorvastatin Calcium (Lipitor -) 40 mg PO HS [facility] Last Admin: 08/04/20 21:24 Dose: 40 mg Documented by: Carvedilol (Coreg -) 25 mg PO BID [facility] Last Admin: 08/04/20 21:24 Dose: 25 mg Documented by: Clonidine (Catapres -) 0.05 mg PO BID [facility] Last Admin: 08/04/20 21:26 Dose: 0.05 mg Documented by: Collagenase (Santyl -) 1 applic TP DAILY [facility]; Protocol Last Admin: 08/04/20 10:15 Dose: 1 applic Documented by: Sodium Chloride (Normal Saline -) 250 mls @ 3,000 mls/hr IV PRN PRN PRN Reason: Hypotension during Dialysis Stop: 08/06/20 07:43 Insulin Aspart (Novolog Vial Sliding Scale -) 1 vial SQ ACHS [facility]; Protocol Last Admin: 08/05/20 06:26 Dose: 2 units Documented by: Lisinopril (Prinivil) 10 mg PO DAILY [facility] Last Admin: 08/04/20 10:13 Dose: 10 mg Documented by: Oxycodone HCl (Roxicodone -) 5 mg PO Q6H PRN PRN Reason: PAIN LEVEL 6-10 Last Admin: 08/05/20 08:39 Dose: 5 mg Documented by: Pantoprazole Sodium (Protonix -) 40 mg PO DAILY [facility] Last Admin: 08/04/20 10:13 Dose: 40 mg Documented by: Sevelamer Carbonate (Renvela -) 2,400 mg PO TIDCM [facility] Last Admin: 08/05/20 08:40 Dose: 2,400 mg Documented by: - Objective Vital Signs: Vital Signs Temperature 98.1 F 08/05/20 06:00 Pulse Rate 93 H 08/05/20 06:00 Respiratory Rate 08/05/20 06:00 Blood Pressure 119/57 L 08/05/20 06:00 O2 Sat by Pulse Oximetry (%) 95 08/05/20 06:00 Eyes: Yes: WNL, Conjunctiva Clear, EOM Intact HENT: Yes: WNL, Atraumatic, Normocephalic Neck: Yes: WNL, Supple, Trachea Midline Cardiovascular: Yes: WNL, Regular Rate and Rhythm Respiratory: Yes: WNL, Regular, CTA Bilaterally Gastrointestinal: Yes: WNL, Normal Bowel Sounds Genitourinary: Yes: WNL Musculoskeletal: Yes: WNL Extremities: Yes: WNL Edema: No Integumentary: Yes: WNL Neurological: Yes: WNL, Alert, Oriented ...Motor Strength: WNL Psychiatric: Yes: WNL Labs: CBC, BMP 08/04/20 06:05 08/04/20 06:05 INR, PTT INR 1.13 (0.83-1.09) H 07/31/20 21:10 Assessment/Plan Mr. Mcfadden is a 64 yr old man with PMH of ESRD (HD MWF), AF on carvedilol and Eliquis, HTN, DM, HLD (hypertriglyceridemia), PAD (s/p right toe amputation); s/p treatement for left chest abscess 12/2019, sleep apnea, mild thoracic ascending aortic aneuysm), alcoholic user, obesity, BIBEMS from home for persistent weakness. He is admitted for near-syncope. Systolic CHF; severe LAE (ECHO 12/2019). elevated prolactin (2013). Covid negative Rec: Continue carvedilol for HR, BP, systolic CHF; lisinopril. Titrate off Clonidine (on beta blockers) and adjust doses of other meds, as well as consider starting spironolactone. F/u past cardiac workup. Will stop clopidogrel presently (on apixaban; hx falls; no ischemia on 2018 stress MIBI). On atorvastatin; keep LDL < 70 mg/dL. BUN/Cr, electrolytes, daily weight, Is and Os. Prolactin level. 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 f/u chest abscess treated 12/2019; per pulmonary, CT was to be repeated a few months later. Nutrition consult may be of benefit, though pt's insight problematic. May need a stress test if not done recently.
[2020-08-05] MEDS ORDERED: PT OWN MED DRAWER 7, Y5N ONE (09:06)
[2020-08-05] MEDS: LISINOPRIL 10 MG TABLET PO SCH (09:07)
[2020-08-05] MEDS: PANTOPRAZOLE 40 MG TABLET PO SCH (09:07)
[2020-08-05] MEDS: CARVEDILOL 25 MG TABLET (FP) PO SCH ×2 (09:08→22:53)
[2020-08-05] MEDS: APIXABAN 5 MG TABLET PO SCH ×2 (09:08→22:53)
[2020-08-05] MEDS: cloNIDine HCL 0.1 MG TABLET PO SCH ×2 (09:08→22:54)
[2020-08-05] MEDS: COLLAGENASE CLOSTRIDIUM HIST. 30 GRAMS TUBE TP SCH (09:30)
--- NOTE | 2020-08-05 10:53 | CONSULT ---
- Consultation REQUESTING PROVIDER: CONSULT REQUEST: We have been asked to surgically evaluate this patient for vascular check Left heel ulcer Hospitalist:Angélica Wilson HISTORY OF PRESENT ILLNESS: 64yo M admitted for syncope work up was consulted to Vascular for vascular check of Left heel ulcer. Pt is known to the wound care clinic and had angio and stent placement in the LLE done about 2 years ago according to pt. Pt currently having wound care done by Dr. Higuera (podiatry). Pt denies any new issues with heel wound. Pt non-smoker. Home Medications Medication Instructions Recorded Atorvastatin Ca [Lipitor] 40 mg PO HS #30 tablet 10/03/14 cloNIDine HCL [Catapres -] 0.1 mg PO BID #60 tablet 10/03/14 Metoclopramide HCl [Reglan] 5 mg PO TID #0 tablet 04/28/16 Pantoprazole Sodium [Protonix] 40 mg PO DAILY #0 tablet. 04/28/16 Sevelamer Carbonate [Renvela -] 2,400 mg PO TID 04/28/16 Ammonium Lactate Lotion 1 applic TP BID PRN bottle 02/08/18 [Lac-Hydrin 12] Clopidogrel Bisulfate [Plavix] 75 mg PO DAILY #30 tablet 08/19/18 Apixaban [Eliquis -] 5 mg PO BID tablet 12/29/19 Carvedilol [Coreg -] 25 mg PO BID tablet 12/29/19 Epoetin Lenny [Procrit -] 20,000 unit SQ Q2D ml 12/29/19 Epoetin Lenny [Procrit -] 20,000 unit SQ Q2D ml 12/29/19 Lisinopril [Prinivil] 10 mg PO DAILY tablet 12/29/19 Insulin Degludec [Tresiba] 24 units DAILY 07/31/20 Allergies Allergy/AdvReac Type Severity Reaction Status Date / Time Pork/Porcine Containing Allergy Verified 07/31/20 18:35 Products PHYSICAL EXAM: GENERAL: Awake, alert, and fully oriented, in no acute distress. HEAD: Normal with no signs of trauma. EYES: PERRL, sclera anicteric, conjunctiva clear. UPPER EXTREMITIES: warm, well-perfused. No cyanosis. No peripheral edema. LOWER EXTREMITIES: warm, well-perfused. No calf tenderness. No peripheral edema. Lt foot dopplarable pulses, s/p 4th and 5th toe amputations, 3cm x 3cm ulcer posterior heel, no erythema or discharge. NEUROLOGICAL: Normal speech, gait not observed. PSYCH: Cooperative. Good eye contact. Appropriate mood and affect. Vital Signs Temperature 98.2 F 08/05/20 10:00 Pulse Rate 98 H 08/05/20 10:00 Respiratory Rate 21 H 08/05/20 10:00 Blood Pressure 154/90 08/05/20 10:00 O2 Sat by Pulse Oximetry (%) 99 08/05/20 10:00 Lab Results WBC 7.6 K/mm3 (4.0-10.0) 08/04/20 06:05 RBC 4.38 M/mm3 (4.00-5.60) 08/04/20 06:05 Hgb 12.4 GM/dL (11.7-16.9) 08/04/20 06:05 Hct 37.5 % (35.4-49) 08/04/20 06:05 MCV 85.7 fl (80-96) 08/04/20 06:05 MCHC 33.0 g/dl (32.0-35.9) 08/04/20 06:05 RDW 14.9 % (11.9-15.9) 08/04/20 06:05 Plt Count 159 K/MM3 (134-434) D 08/04/20 06:05 INR 1.13 (0.83-1.09) H 07/31/20 21:10 Sodium 133 mmol/L (136-145) L 08/04/20 06:05 Potassium 4.6 mmol/L (3.5-5.1) 08/04/20 06:05 Chloride 94 mmol/L (98-107) L 08/04/20 06:05 Carbon Dioxide 27 mmol/L (21-32) 08/04/20 06:05 Anion Gap 12 MMOL/L (8-16) 08/04/20 06:05 BUN 58.5 mg/dL (7-18) H 08/04/20 06:05 Creatinine 8.1 mg/dL (0.55-1.3) H* 08/04/20 06:05 Random Glucose 137 mg/dL (74-106) H 08/04/20 06:05 Calcium 9.3 mg/dL (8.5-10.1) 08/04/20 06:05 Problem List - Problems (1) Type 2 diabetes mellitus with foot ulcer Assessment/Plan: Plan -no need for acute vascular intervention at this time. -pt should follow up with wound care clinic as schedlued as outpatient -wound care per podiatry. -please contact vascular team if any changes. Code(s): E11.621 - TYPE 2 DIABETES MELLITUS WITH FOOT ULCER; L97.509 - NON- PRESSURE CHRONIC ULCER OTH PRT UNSP FOOT W UNSP SEVERITY
--- NOTE | 2020-08-05 12:09 | PN ---
Progress Note, Physician History of Present Illness: Seen and examined at the bedside awake and alert still has right sided chest pain from rib fractures not ambulating due to weakness no shortness of breath, abdominal pain, N/V/D. - Current Medication List Current Medications: Active Medications Acetaminophen (Tylenol -) 650 mg PO Q4H PRN PRN Reason: PAIN 1-3 Last Admin: 08/02/20 11:47 Dose: 650 mg Documented by: Apixaban (Eliquis -) 5 mg PO BID [facility] Last Admin: 08/05/20 09:08 Dose: 5 mg Documented by: Atorvastatin Calcium (Lipitor -) 40 mg PO HS [facility] Last Admin: 08/04/20 21:24 Dose: 40 mg Documented by: Carvedilol (Coreg -) 25 mg PO BID [facility] Last Admin: 08/05/20 09:08 Dose: 25 mg Documented by: Clonidine (Catapres -) 0.05 mg PO BID [facility] Last Admin: 08/05/20 09:08 Dose: 0.05 mg Documented by: Collagenase (Santyl -) 1 applic TP DAILY [facility]; Protocol Last Admin: 08/05/20 09:30 Dose: 1 applic Documented by: Sodium Chloride (Normal Saline -) 250 mls @ 3,000 mls/hr IV PRN PRN PRN Reason: Hypotension during Dialysis Stop: 08/06/20 07:43 Insulin Aspart (Novolog Vial Sliding Scale -) 1 vial SQ ACHS [facility]; Protocol Last Admin: 08/05/20 11:51 Dose: 2 units Documented by: Lisinopril (Prinivil) 10 mg PO DAILY [facility] Last Admin: 08/05/20 09:07 Dose: 10 mg Documented by: Oxycodone HCl (Roxicodone -) 5 mg PO Q6H PRN PRN Reason: PAIN LEVEL 6-10 Last Admin: 08/05/20 08:39 Dose: 5 mg Documented by: Pantoprazole Sodium (Protonix -) 40 mg PO DAILY [facility] Last Admin: 08/05/20 09:07 Dose: 40 mg Documented by: Sevelamer Carbonate (Renvela -) 2,400 mg PO TIDCM [facility] Last Admin: 08/05/20 11:48 Dose: 2,400 mg Documented by: - Objective Vital Signs: Vital Signs Temperature 98.2 F 08/05/20 10:00 Pulse Rate 98 H 08/05/20 10:00 Respiratory Rate 21 H 08/05/20 10:00 Blood Pressure 154/90 08/05/20 10:00 O2 Sat by Pulse Oximetry (%) 99 08/05/20 10:00 Constitutional: Yes: No Distress, Calm Neck: Yes: Supple Cardiovascular: Yes: Regular Rate and Rhythm Respiratory: Yes: Regular Gastrointestinal: Yes: Soft Extremities: No: Cyanosis Edema: No Neurological: Yes: Alert Labs: CBC, BMP 08/04/20 06:05 08/04/20 06:05 INR, PTT INR 1.13 (0.83-1.09) H 07/31/20 21:10 Assessment/Plan 64 year hold male with history of ESRD on HD (MWF), PVD, DM, atrial fibrillation on Eliquis who presented from home with weakness and an inability to ambulate. 1. Generalized weakness 2. ESRD on HD 3. Recent syncope 4. DM 5. Hypertension 6. Renal Osteodystrophy 7. PVD 8. Atrial fibrillation 9. CKD related Anemia 10. Hyponatremia in setting of renal insufficiency For dialysis today with UF as tolerated Renal diet and 1.2L fluid restriction daily. Blood cultures negative thus far, no fevers or leukocytosis. Cardiology following BP is low, trend for now on current meds No LIZZIE needed as Hgb > 10. Continue Phos binder with meals. Will need SNF on discharge. Thank you Meet Pedro DO
--- NOTE | 2020-08-05 13:07 | PN ---
Progress Note, Physician Chief Complaint: fuv right heel wound. - Current Medication List Current Medications: Active Medications Acetaminophen (Tylenol -) 650 mg PO Q4H PRN PRN Reason: PAIN 1-3 Last Admin: 08/02/20 11:47 Dose: 650 mg Documented by: Apixaban (Eliquis -) 5 mg PO BID [facility] Last Admin: 08/05/20 09:08 Dose: 5 mg Documented by: Atorvastatin Calcium (Lipitor -) 40 mg PO HS [facility] Last Admin: 08/04/20 21:24 Dose: 40 mg Documented by: Carvedilol (Coreg -) 25 mg PO BID [facility] Last Admin: 08/05/20 09:08 Dose: 25 mg Documented by: Clonidine (Catapres -) 0.05 mg PO BID [facility] Last Admin: 08/05/20 09:08 Dose: 0.05 mg Documented by: Collagenase (Santyl -) 1 applic TP DAILY [facility]; Protocol Last Admin: 08/05/20 09:30 Dose: 1 applic Documented by: Sodium Chloride (Normal Saline -) 250 mls @ 3,000 mls/hr IV PRN PRN PRN Reason: Hypotension during Dialysis Stop: 08/06/20 07:43 Insulin Aspart (Novolog Vial Sliding Scale -) 1 vial SQ ACHS [facility]; Protocol Last Admin: 08/05/20 11:51 Dose: 2 units Documented by: Lisinopril (Prinivil) 10 mg PO DAILY [facility] Last Admin: 08/05/20 09:07 Dose: 10 mg Documented by: Oxycodone HCl (Roxicodone -) 5 mg PO Q6H PRN PRN Reason: PAIN LEVEL 6-10 Last Admin: 08/05/20 08:39 Dose: 5 mg Documented by: Pantoprazole Sodium (Protonix -) 40 mg PO DAILY [facility] Last Admin: 08/05/20 09:07 Dose: 40 mg Documented by: Sevelamer Carbonate (Renvela -) 2,400 mg PO TIDCM [facility] Last Admin: 08/05/20 11:48 Dose: 2,400 mg Documented by: - Objective Vital Signs: Vital Signs Temperature 98.2 F 08/05/20 10:00 Pulse Rate 98 H 08/05/20 10:00 Respiratory Rate 21 H 08/05/20 10:00 Blood Pressure 154/90 08/05/20 10:00 O2 Sat by Pulse Oximetry (%) 99 08/05/20 10:00 Wound/Incision: Yes: Other (+dry grade 1-2 wound right heel, -drainage, -cellulitis) Labs: CBC, BMP 08/04/20 06:05 08/04/20 06:05 INR, PTT INR 1.13 (0.83-1.09) H 07/31/20 21:10 Assessment/Plan om? pvd grade 2 wound Santyl dressing change daily right heel. Do not put tape on skin. Vascular consult Dr. Keller again. Will follow. Post op shoe right.
[2020-08-05 17:07] LABS: HEMATOCRIT 36.4 % (35.4-49); HEMOGLOBIN 11.7 GM/dL (11.7-16.9); MCH 27.6 pg (25.7-33.7); MCHC 32.2 g/dl (32.0-35.9); MEAN CELL VOLUME 85.7 fl (80-96); MEAN PLT VOLUME 9.9 fl (7.5-11.1); PLATELET COUNT 170 K/MM3 (134-434); RBC 4.25 M/mm3 (4.00-5.60); RDW 14.8 % (11.9-15.9)
[2020-08-05 17:39] LABS: BLOOD UREA NITROGEN 73.4 mg/dL (7-18); CALCIUM 9.1 mg/dL (8.5-10.1); POTASSIUM 4.7 mmol/L (3.5-5.1)
[2020-08-05 17:58] LABS: CREATININE 9.9 mg/dL (0.55-1.3)
--- NOTE | 2020-08-05 19:29 | PN ---
Progress Note, Physician History of Present Illness: feeling better - Current Medication List Current Medications: Active Medications Acetaminophen (Tylenol -) 650 mg PO Q4H PRN PRN Reason: PAIN 1-3 Last Admin: 08/02/20 11:47 Dose: 650 mg Documented by: Apixaban (Eliquis -) 5 mg PO BID [facility] Last Admin: 08/05/20 09:08 Dose: 5 mg Documented by: Atorvastatin Calcium (Lipitor -) 40 mg PO HS [facility] Last Admin: 08/04/20 21:24 Dose: 40 mg Documented by: Carvedilol (Coreg -) 25 mg PO BID [facility] Last Admin: 08/05/20 09:08 Dose: 25 mg Documented by: Clonidine (Catapres -) 0.05 mg PO BID [facility] Last Admin: 08/05/20 09:08 Dose: 0.05 mg Documented by: Collagenase (Santyl -) 1 applic TP DAILY [facility]; Protocol Last Admin: 08/05/20 09:30 Dose: 1 applic Documented by: Sodium Chloride (Normal Saline -) 250 mls @ 3,000 mls/hr IV PRN PRN PRN Reason: Hypotension during Dialysis Stop: 08/06/20 07:43 Insulin Aspart (Novolog Vial Sliding Scale -) 1 vial SQ ACHS [facility]; Protocol Last Admin: 08/05/20 11:51 Dose: 2 units Documented by: Lisinopril (Prinivil) 10 mg PO DAILY [facility] Last Admin: 08/05/20 09:07 Dose: 10 mg Documented by: Oxycodone HCl (Roxicodone -) 5 mg PO Q6H PRN PRN Reason: PAIN LEVEL 6-10 Last Admin: 08/05/20 08:39 Dose: 5 mg Documented by: Pantoprazole Sodium (Protonix -) 40 mg PO DAILY [facility] Last Admin: 08/05/20 09:07 Dose: 40 mg Documented by: Sevelamer Carbonate (Renvela -) 2,400 mg PO TIDCM [facility] Last Admin: 08/05/20 11:48 Dose: 2,400 mg Documented by: - Objective Vital Signs: Vital Signs Temperature 98.2 F 08/05/20 16:20 Pulse Rate 72 08/05/20 17:00 Respiratory Rate 18 08/05/20 17:00 Blood Pressure 70/40 L 08/05/20 17:00 O2 Sat by Pulse Oximetry (%) 99 08/05/20 10:00 Constitutional: Yes: No Distress HENT: Yes: Atraumatic Neck: Yes: Supple Cardiovascular: Yes: Regular Rate and Rhythm Respiratory: Yes: CTA Bilaterally Gastrointestinal: Yes: Normal Bowel Sounds Extremities: Yes: WNL Edema: No Neurological: Yes: Alert, Oriented Labs: CBC, BMP 08/05/20 16:30 08/05/20 16:30 INR, PTT INR 1.13 (0.83-1.09) H 07/31/20 21:10 Problem List - Problems (1) Near syncope Assessment/Plan: tele monitoring cardiology on board Code(s): R55 - SYNCOPE AND COLLAPSE (2) Atrial fibrillation Assessment/Plan: on meds Ac Code(s): I48.91 - UNSPECIFIED ATRIAL FIBRILLATION (3) Diabetes Assessment/Plan: sliding scale insulin Code(s): E11.9 - TYPE 2 DIABETES MELLITUS WITHOUT COMPLICATIONS Qualifiers: Diabetes mellitus long term care social worker insulin use: unspecified long-term insulin use s tatus Diabetes mellitus complication status: with circulatory complication (4) ESRD (end stage renal disease) Assessment/Plan: renal consult for hd Code(s): N18.6 - END STAGE RENAL DISEASE (5) HLD (hyperlipidemia) Code(s): E78.5 - HYPERLIPIDEMIA, UNSPECIFIED (6) HTN (hypertension) Assessment/Plan: monitor on meds Code(s): I10 - ESSENTIAL (PRIMARY) HYPERTENSION (7) Rib fractures Assessment/Plan: prn pain meds Code(s): S22.39XA - FRACTURE OF ONE RIB, UNSP SIDE, INIT FOR CLOS FX (8) ESRD (end stage renal disease) Assessment/Plan: on hd Code(s): N18.6 - END STAGE RENAL DISEASE Assessment/Plan COVERING FOR DR RODRÍGUEZ TODAY
[2020-08-05] MEDS: ATORVASTATIN CA 40 MG TABLET (FP) PO SCH (22:53)
[2020-08-05] MEDS: ACETAMINOPHEN 325 MG TABLET (FP) PO PRN (22:54)
[2020-08-06] MEDS ORDERED: ACETAMINOPHEN 325 MG TABLET (FP) PO ONE (01:30)
[2020-08-06] MEDS: oxyCODONE HCL 5 MG TABLET PO PRN ×5 (01:39→21:10)
[2020-08-06] MEDS: ACETAMINOPHEN 325 MG TABLET (FP) PO PRN ×3 (04:00→16:58)
[2020-08-06] MEDS: INSULIN SLIDING SCALE (NOVOLOG) 1 VIAL SQ SCH ×4 (06:10→21:11)
[2020-08-06] MEDS: SEVELAMER CARBONATE 800 MG TAB (FP) PO SCH ×3 (08:07→16:59)
[2020-08-06] MEDS: LISINOPRIL 10 MG TABLET PO SCH (09:49)
[2020-08-06] MEDS: cloNIDine HCL 0.1 MG TABLET PO SCH (09:49)
[2020-08-06] MEDS: COLLAGENASE CLOSTRIDIUM HIST. 30 GRAMS TUBE TP SCH (09:49)
[2020-08-06] MEDS: CARVEDILOL 25 MG TABLET (FP) PO SCH ×2 (09:49→21:10)
[2020-08-06] MEDS: PANTOPRAZOLE 40 MG TABLET PO SCH (09:49)
[2020-08-06] MEDS: APIXABAN 5 MG TABLET PO SCH ×2 (10:29→21:10)
[2020-08-06] MEDS ORDERED: SODIUM CHLORIDE 250 ML IV PRN (11:49)
--- NOTE | 2020-08-06 11:49 | PN ---
Progress Note, Physician History of Present Illness: Seen and examined at the bedside awake and alert s/p dialysis yesterday continues to feel weak still has pain from rib fractures no sob, cp, fever, chills, N/V/D. - Current Medication List Current Medications: Active Medications Acetaminophen (Tylenol -) 650 mg PO Q4H PRN PRN Reason: PAIN 1-3 Last Admin: 08/06/20 10:46 Dose: 650 mg Documented by: Apixaban (Eliquis -) 5 mg PO BID [facility] Last Admin: 08/06/20 10:29 Dose: 5 mg Documented by: Atorvastatin Calcium (Lipitor -) 40 mg PO HS [facility] Last Admin: 08/05/20 22:53 Dose: 40 mg Documented by: Carvedilol (Coreg -) 25 mg PO BID [facility] Last Admin: 08/06/20 09:49 Dose: 25 mg Documented by: Clonidine (Catapres -) 0.05 mg PO BID [facility] Last Admin: 08/06/20 09:49 Dose: 0.05 mg Documented by: Collagenase (Santyl -) 1 applic TP DAILY [facility]; Protocol Last Admin: 08/06/20 09:49 Dose: 1 applic Documented by: Sodium Chloride (Normal Saline -) 250 mls @ 3,000 mls/hr IV PRN PRN PRN Reason: Hypotension during Dialysis Stop: 08/06/20 07:43 Insulin Aspart (Novolog Vial Sliding Scale -) 1 vial SQ ACHS [facility]; Protocol Last Admin: 08/06/20 10:54 Dose: 2 units Documented by: Lisinopril (Prinivil) 10 mg PO DAILY [facility] Last Admin: 08/06/20 09:49 Dose: 10 mg Documented by: Oxycodone HCl (Roxicodone -) 5 mg PO Q4H PRN PRN Reason: PAIN LEVEL 6-10 Last Admin: 08/06/20 10:45 Dose: 5 mg Documented by: Pantoprazole Sodium (Protonix -) 40 mg PO DAILY [facility] Last Admin: 08/06/20 09:49 Dose: 40 mg Documented by: Sevelamer Carbonate (Renvela -) 2,400 mg PO TIDCM [facility] Last Admin: 08/06/20 08:07 Dose: 2,400 mg Documented by: - Objective Vital Signs: Vital Signs Temperature 98.5 F 08/06/20 10:00 Pulse Rate 96 H 09/29/20 10:00 Respiratory Rate 19 08/06/20 10:00 Blood Pressure 126/59 L 08/06/20 10:00 O2 Sat by Pulse Oximetry (%) 95 08/06/20 10:00 Constitutional: Yes: No Distress Cardiovascular: Yes: Regular Rate and Rhythm Respiratory: Yes: Regular Gastrointestinal: Yes: Soft, Abdomen, Obese Extremities: No: Cyanosis Edema: No Labs: CBC, BMP 08/05/20 16:30 08/05/20 16:30 INR, PTT INR 1.13 (0.83-1.09) H 07/31/20 21:10 Assessment/Plan 64 year hold male with history of ESRD on HD (MWF), PVD, DM, atrial fibrillation on Eliquis who presented from home with weakness and an inability to ambulate. 1. Generalized weakness 2. ESRD on HD 3. Recent syncope 4. DM 5. Hypertension 6. Renal Osteodystrophy 7. PVD 8. Atrial fibrillation 9. CKD related Anemia 10. Hyponatremia in setting of renal insufficiency Tolerated dialysis well yesterday, next planned treatment is Wednesday. Renal diet and 1.2L fluid restriction daily. Blood cultures negative thus far, no fevers or leukocytosis. Cardiology following BP is low, trend for now on current meds No LIZZIE needed as Hgb > 10. Continue Phos binder with meals. Will need SNF on discharge. Thank you Meet Pedro DO
--- NOTE | 2020-08-06 12:33 | PN ---
Progress Note, Physician Chief Complaint: Pt A&Ox3; no dizziness now, but says he worries that he has not been able to stand without feeling dizzy in the recent past, and his BP is often low, especially at dialysis. History of Present Illness: Mr. Mcfadden is a 64 yr old man with PMH IDDM, ESRD (HD MWF), AF on Eliquis, PSVT, HTN, HLD, PAD (s/p right toe amputation), s/p treatment for left chest abscess 12/2019; mild ascending thoracic aneurysm (followed q 3-6 months by private pathology laboratory director), obesity; ?alcohol, now admitted for persistent weakness. Patient had a fall five days ago; at [facility], CT scan found contiguous right rib fractures. He was transferred to [facility] and admitted for 5 days. He had physical therapy today where they successfully walked him 20 steps. He refused rehab offer and was sent home. At home, he almost fell, but his and son caught him. He denies new onset weakness, numbness, tingling, cp/sob, f/c, n/v, abdominal pain. Pt is a [employer]. Last hemodialysis (HD) yesterday. PMHX: as in HPI PSHX: toe amputations. Meds: on eliquis. Allergies: pork containing products. Tob: yes Etoh: yes Rec drugs: no PCP: Jameel Jauregui Cardiology: Dr Jayne Odom Renal Doctor: Elizabet Huntley - Current Medication List Current Medications: Active Medications Acetaminophen (Tylenol -) 650 mg PO Q4H PRN PRN Reason: PAIN 1-3 Last Admin: 08/06/20 10:46 Dose: 650 mg Documented by: Apixaban (Eliquis -) 5 mg PO BID [facility] Last Admin: 08/06/20 10:29 Dose: 5 mg Documented by: Atorvastatin Calcium (Lipitor -) 40 mg PO [facility] Last Admin: 08/05/20 22:53 Dose: 40 mg Documented by: Carvedilol (Coreg -) 25 mg PO BID [facility] Last Admin: 08/06/20 09:49 Dose: 25 mg Documented by: Clonidine (Catapres -) 0.05 mg PO BID [facility] Last Admin: 08/06/20 09:49 Dose: 0.05 mg Documented by: Collagenase (Santyl -) 1 applic TP DAILY [facility]; Protocol Last Admin: 08/06/20 09:49 Dose: 1 applic Documented by: Sodium Chloride (Normal Saline -) 250 mls @ 3,000 mls/hr IV PRN PRN PRN Reason: Hypotension during Dialysis Stop: 08/06/20 07:43 Sodium Chloride (Normal Saline -) 250 mls @ 3,000 mls/hr IV PRN PRN PRN Reason: Hypotension during Dialysis Stop: 08/07/20 11:49 Insulin Aspart (Novolog Vial Sliding Scale -) 1 vial SQ ACHS [facility]; Protocol Last Admin: 08/06/20 10:54 Dose: 2 units Documented by: Lisinopril (Prinivil) 10 mg PO DAILY [facility] Last Admin: 08/06/20 09:49 Dose: 10 mg Documented by: Oxycodone HCl (Roxicodone -) 5 mg PO Q4H PRN PRN Reason: PAIN LEVEL 6-10 Last Admin: 08/06/20 10:45 Dose: 5 mg Documented by: Pantoprazole Sodium (Protonix -) 40 mg PO DAILY [facility] Last Admin: 08/06/20 09:49 Dose: 40 mg Documented by: Sevelamer Carbonate (Renvela -) 2,400 mg PO TIDCM [facility] Last Admin: 08/06/20 12:03 Dose: 2,400 mg Documented by: - Objective Vital Signs: Vital Signs Temperature 98.5 F 08/06/20 10:00 Pulse Rate 96 H 08/06/20 10:00 Respiratory Rate 19 08/06/20 10:00 Blood Pressure 126/59 L 08/06/20 10:00 O2 Sat by Pulse Oximetry (%) 95 08/06/20 10:00 Constitutional: Yes: Anxious, Obese Eyes: Yes: WNL HENT: Yes: WNL Neck: Yes: WNL Cardiovascular: Yes: Pulse Irregular, Murmur, S1 (varies in intensity), S2 Respiratory: Yes: Regular Gastrointestinal: Yes: Soft, Abdomen, Obese ...Rectal Exam: Yes: Deferred Genitourinary: Yes: Anuria Musculoskeletal: Yes: Joint Stiffness, Muscle Weakness Extremities: Yes: Cool Edema: No Peripheral Pulses WNL: Yes Integumentary: Yes: Incision (chest surgical scar (abscess drainage prior admission)) Wound/Incision: Yes: Other Neurological: Yes: Alert, Oriented Psychiatric: Yes: Alert, Oriented, Other Labs: CBC, BMP 08/05/20 16:30 08/05/20 16:30 INR, PTT INR 1.13 (0.83-1.09) H 07/31/20 21:10 - ....Imaging Chest X-ray: Image Reviewed EKG: Image Reviewed (AF) Assessment/Plan Mr. Mcfadden is a 64 yr old man with PMH of ESRD (HD MWF), AF on carvedilol and Eliquis, HTN, DM, HLD (hypertriglyceridemia), PAD (s/p right toe amputation); s/p treatement for left chest abscess 12/2019, sleep apnea, mild thoracic ascending aortic aneuysm), alcoholic user, obesity, BIBEMS from home for persistent weakness. He is admitted for near-syncope. Systolic CHF (mildly reduced LVEF; severe LAE on ECHO 12/2019). elevated prolactin (2013) chronic right heel wound Rec: COVID negative. TNI < 0.02 x 3. EKG: AF transient hypotension 08/05/20 Continue carvedilol and lisinopril for HR, BP, systolic CHF. Titrated off Clonidine (on beta blockers) and adjust doses of other meds, as well as consider starting spironolactone. F/u past cardiac workup. d/abhinav clopidogrel (on apixaban; hx falls; no ischemia on 2018 stress MIBI). f/u EKG. On atorvastatin; keep LDL < 70 mg/dL. BUN/Cr, electrolytes, daily weight, Is and Os. Prolactin level remains elevated (63); likely related to ESRD. 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 f/u chest abscess treated 12/2019; per pulmonary, CT was to be repeated a few months later. f/u Rx of heel wound. Nutrition consult may be of benefit, though pt's insight problematic. He does say he "plans to lose weight".
[2020-08-06] MEDS ORDERED: PT OWN MED DRAWER 7, Y5N ONE (18:15)
[2020-08-06] MEDS ORDERED: ALBUTEROL SO4 2.5/IPRATROPIUM 0.5 INH SOL 3 ML VIAL.NEB. NEB PRN (19:18)
[2020-08-06] MEDS: ATORVASTATIN CA 40 MG TABLET (FP) PO SCH (21:10)
--- NOTE | 2020-08-06 22:25 | PN ---
Progress Note, Physician History of Present Illness: Same complaint of rib pain and weakness - Current Medication List Current Medications: Active Medications Acetaminophen (Tylenol -) 650 mg PO Q4H PRN PRN Reason: PAIN 1-3 Last Admin: 08/06/20 16:58 Dose: 650 mg Documented by: Albuterol/Ipratropium (Duoneb -) 1 amp NEB Q6H PRN PRN Reason: SHORTNESS OF BREATH Apixaban (Eliquis -) 5 mg PO BID [facility] Last Admin: 08/06/20 21:10 Dose: 5 mg Documented by: Atorvastatin Calcium (Lipitor -) 40 mg PO HS [facility] Last Admin: 08/06/20 21:10 Dose: 40 mg Documented by: Carvedilol (Coreg -) 25 mg PO BID [facility] Last Admin: 08/06/20 21:10 Dose: 25 mg Documented by: Collagenase (Santyl -) 1 applic TP DAILY [facility]; Protocol Last Admin: 08/06/20 09:49 Dose: 1 applic Documented by: Sodium Chloride (Normal Saline -) 250 mls @ 3,000 mls/hr IV PRN PRN PRN Reason: Hypotension during Dialysis Stop: 08/07/20 11:49 Insulin Aspart (Novolog Vial Sliding Scale -) 1 vial SQ ACHS [facility]; Protocol Last Admin: 08/06/20 21:11 Dose: 2 units Documented by: Lisinopril (Prinivil) 10 mg PO DAILY [facility] Last Admin: 08/06/20 09:49 Dose: 10 mg Documented by: Oxycodone HCl (Roxicodone -) 5 mg PO Q4H PRN PRN Reason: PAIN LEVEL 6-10 Last Admin: 08/06/20 21:10 Dose: 5 mg Documented by: Pantoprazole Sodium (Protonix -) 40 mg PO DAILY [facility] Last Admin: 08/06/20 09:49 Dose: 40 mg Documented by: Sevelamer Carbonate (Renvela -) 2,400 mg PO TIDCM [facility] Last Admin: 08/06/20 16:59 Dose: 2,400 mg Documented by: - Objective Vital Signs: Vital Signs Temperature 98.2 F 08/06/20 16:40 Pulse Rate 97 H 08/06/20 16:40 Respiratory Rate 18 08/06/20 16:40 Blood Pressure 139/76 08/06/20 16:40 O2 Sat by Pulse Oximetry (%) 95 08/06/20 16:40 Cardiovascular: Yes: Pulse Irregular Respiratory: Yes: Diminished Gastrointestinal: Yes: WNL, Normal Bowel Sounds, Soft, Abdomen, Obese Labs: CBC, BMP 08/05/20 16:30 08/05/20 16:30 INR, PTT INR 1.13 (0.83-1.09) H 07/31/20 21:10 Problem List - Problems (1) Near syncope Assessment/Plan: Due to unsteady gait Due to rib fracture Heart rate stable BNP elevated to >22,000 CT scan chest showed rib fractures/pleural effusions and ?superimposed infiltrate Code(s): R55 - SYNCOPE AND COLLAPSE (2) HTN (hypertension) Assessment/Plan: Cont coreg/lisinopril Code(s): I10 - ESSENTIAL (PRIMARY) HYPERTENSION (3) ESRD (end stage renal disease) Assessment/Plan: Pt on dialysis As per renal Code(s): N18.6 - END STAGE RENAL DISEASE (4) Atrial fibrillation Assessment/Plan: Heart rate controlled Cont eliquis/BB Code(s): I48.91 - UNSPECIFIED ATRIAL FIBRILLATION (5) Diabetes Assessment/Plan: Cont sliding scale w/ coverage Rt heel ulcer Pt seen by podiatry Cont wound care w/ santyl Code(s): E11.9 - TYPE 2 DIABETES MELLITUS WITHOUT COMPLICATIONS Qualifiers: Diabetes mellitus nursing home insulin use: unspecified moth exterminator insulin use status Diabetes mellitus complication status: with circulatory complication (6) Foot ulcer due to secondary DM Assessment/Plan: Vascular surgeon consult Code(s): E13.621 - OTHER SPECIFIED DIABETES MELLITUS WITH FOOT ULCER; L97.509 - NON-PRESSURE CHRONIC ULCER OTH PRT UNSP FOOT W UNSP SEVERITY (7) HLD (hyperlipidemia) Assessment/Plan: Cont lipitor Code(s): E78.5 - HYPERLIPIDEMIA, UNSPECIFIED (8) Systolic CHF Assessment/Plan: Cont coreg/lisinopril Code(s): I50.20 - UNSPECIFIED SYSTOLIC (CONGESTIVE) HEART FAILURE
[2020-08-07] MEDS: oxyCODONE HCL 5 MG TABLET PO PRN ×3 (05:30→21:27)
[2020-08-07] MEDS: INSULIN SLIDING SCALE (NOVOLOG) 1 VIAL SQ SCH ×4 (06:46→21:27)
[2020-08-07] MEDS ORDERED: PT OWN MED DRAWER 7, Y5N ONE (08:47)
[2020-08-07] MEDS: SEVELAMER CARBONATE 800 MG TAB (FP) PO SCH ×3 (08:55→17:52)
[2020-08-07 09:01] LABS: HEMATOCRIT 36.3 % (35.4-49); HEMOGLOBIN 11.8 GM/dL (11.7-16.9); MCH 27.9 pg (25.7-33.7); MCHC 32.4 g/dl (32.0-35.9); MEAN CELL VOLUME 86.1 fl (80-96); MEAN PLT VOLUME 10.4 fl (7.5-11.1); PLATELET COUNT 161 K/MM3 (134-434); RBC 4.22 M/mm3 (4.00-5.60); RDW 14.9 % (11.9-15.9); WHITE BLOOD COUNT 10.8 K/mm3 (4.0-10.0)
[2020-08-07] MEDS: ACETAMINOPHEN 325 MG TABLET (FP) PO PRN ×2 (09:01→18:19)
[2020-08-07] MEDS: CARVEDILOL 25 MG TABLET (FP) PO SCH ×2 (09:01→22:24)
[2020-08-07] MEDS: APIXABAN 5 MG TABLET PO SCH ×2 (09:01→21:27)
[2020-08-07] MEDS: LISINOPRIL 10 MG TABLET PO SCH (09:11)
[2020-08-07] MEDS: PANTOPRAZOLE 40 MG TABLET PO SCH (09:13)
[2020-08-07 09:28] LABS: BLOOD UREA NITROGEN 58.1 mg/dL (7-18); PHOSPHOROUS 5.6 mg/dL (2.5-4.9); POTASSIUM 4.7 mmol/L (3.5-5.1)
[2020-08-07] MEDS ORDERED: cloNIDine HCL 0.1 MG TABLET PO SCH (10:00)
[2020-08-07 10:21] LABS: CREATININE 9.3 mg/dL (0.55-1.3)
--- NOTE | 2020-08-07 10:23 | PN ---
Progress Note, Physician History of Present Illness: Mr. Mcfadden is a 64 yr old man with PMH IDDM, ESRD (HD MWF), AF on Eliquis, PSVT, HTN, HLD, PAD (s/p right toe amputation), s/p treatment for left chest abscess 12/2019; mild ascending thoracic aneurysm (followed q 3-6 months by private it solutions architect), obesity; ?alcohol, now admitted for persistent weakness. Patient had a fall five days ago; at [facility], CT scan found contiguous right rib fractures. He was transferred to [facility] and admitted for 5 days. He had physical therapy today where they successfully walked him 20 steps. He refused rehab offer and was sent home. At home, he almost fell, but his and son caught him. He denies new onset weakness, numbness, tingling, cp/sob, f/c, n/v, abdominal pain. 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 Last hemodialysis (HD) yesterday. PMHX: as in HPI PSHX: toe amputations. Meds: on eliquis. Allergies: pork containing products. Tob: yes Etoh: yes Rec drugs: no PCP: Jameel Jauregui Cardiology: Dr Jayne Odom Renal Doctor: Elizabet Huntley - Current Medication List Current Medications: Active Medications Acetaminophen (Tylenol -) 650 mg PO Q4H PRN PRN Reason: PAIN 1-3 Last Admin: 08/07/20 09:01 Dose: 650 mg Documented by: Albuterol/Ipratropium (Duoneb -) 1 amp NEB Q6H PRN PRN Reason: SHORTNESS OF BREATH Apixaban (Eliquis -) 5 mg PO BID [facility] Last Admin: 08/07/20 09:01 Dose: 5 mg Documented by: Atorvastatin Calcium (Lipitor -) 40 mg PO HS [facility] Last Admin: 08/06/20 21:10 Dose: 40 mg Documented by: Carvedilol (Coreg -) 25 mg PO BID [facility] Last Admin: 08/07/20 09:01 Dose: Not Given Documented by: Collagenase (Santyl -) 1 applic TP DAILY [facility]; Protocol Last Admin: 08/06/20 09:49 Dose: 1 applic Documented by: Sodium Chloride (Normal Saline -) 250 mls @ 3,000 mls/hr IV PRN PRN PRN Reason: Hypotension during Dialysis Stop: 08/07/20 11:49 Insulin Aspart (Novolog Vial Sliding Scale -) 1 vial SQ ACHS [facility]; Protocol Last Admin: 08/07/20 06:46 Dose: 2 units Documented by: Lisinopril (Prinivil) 10 mg PO DAILY [facility] Last Admin: 08/07/20 09:11 Dose: Not Given Documented by: Oxycodone HCl (Roxicodone -) 5 mg PO Q4H PRN PRN Reason: PAIN LEVEL 6-10 Last Admin: 08/07/20 05:30 Dose: 5 mg Documented by: Pantoprazole Sodium (Protonix -) 40 mg PO DAILY [facility] Last Admin: 08/07/20 09:13 Dose: 40 mg Documented by: Sevelamer Carbonate (Renvela -) 2,400 mg PO TIDCM [facility] Last Admin: 08/07/20 08:55 Dose: 2,400 mg Documented by: - Objective Vital Signs: Vital Signs Temperature 98.7 F 08/07/20 08:40 Pulse Rate 97 H 08/07/20 08:40 Respiratory Rate 08/07/20 08:40 Blood Pressure 86/51 L 08/07/20 08:40 O2 Sat by Pulse Oximetry (%) 94 L 08/07/20 08:40 Eyes: Yes: WNL, Conjunctiva Clear, EOM Intact HENT: Yes: WNL, Atraumatic, Normocephalic Neck: Yes: WNL, Supple, Trachea Midline Cardiovascular: Yes: WNL, Regular Rate and Rhythm Respiratory: Yes: WNL, Regular, CTA Bilaterally Gastrointestinal: Yes: WNL, Normal Bowel Sounds Genitourinary: Yes: WNL Musculoskeletal: Yes: WNL Extremities: Yes: WNL Edema: No Integumentary: Yes: WNL Neurological: Yes: WNL, Alert, Oriented ...Motor Strength: WNL Psychiatric: Yes: WNL Labs: CBC, BMP 08/07/20 08:45 08/07/20 08:45 INR, PTT INR 1.13 (0.83-1.09) H 07/31/20 21:10 Assessment/Plan Mr. Mcfadden is a 64 yr old man with PMH of ESRD (HD MWF), AF on carvedilol and Eliquis, HTN, DM, HLD (hypertriglyceridemia), PAD (s/p right toe amputation); s/p treatement for left chest abscess 12/2019, sleep apnea, mild thoracic ascending aortic aneuysm), alcoholic user, obesity, BIBEMS from home for persistent weakness. He is admitted for near-syncope. Systolic CHF (mildly reduced LVEF; severe LAE on ECHO 12/2019). elevated prolactin (2013) chronic right heel wound Rec: COVID negative. TNI < 0.02 x 3. EKG: AF transient hypotension 08/05/20 Continue carvedilol and lisinopril for HR, BP, systolic CHF. Titrated off Clonidine (on beta blockers) and adjust doses of other meds, as well as consider starting spironolactone. F/u past cardiac workup. d/abhinav clopidogrel (on apixaban; hx falls; no ischemia on 2018 stress MIBI). f/u EKG. On atorvastatin; keep LDL < 70 mg/dL. BUN/Cr, electrolytes, daily weight, Is and Os. Prolactin level elevated (63). Hemodialysis per butadiene convertor operator. f/u chest abscess treated 12/2019; per pulmonary, CT was to be repeated a few months later. f/u Rx of heel wound. Nutrition consult may be of benefit, though pt's insight problematic. He does say he "plans to lose weight".
--- NOTE | 2020-08-07 11:03 | EKG ---
Test Reason : Blood Pressure : / mmHG Vent. Rate : 093 BPM Atrial Rate : 089 BPM P-R Int : 000 ms QRS Dur : 090 ms QT Int : 356 ms P-R-T Axes : 000 -22 049 degrees QTc Int : 442 ms ATRIAL FIBRILLATION WITH PREMATURE VENTRICULAR OR ABERRANTLY CONDUCTED COMPLEXES ABNORMAL ECG WHEN COMPARED WITH ECG OF 31-JUL-2020 22:15, NONSPECIFIC T WAVE ABNORMALITY NOW EVIDENT IN ANTERIOR LEADS Confirmed by MD Bhupinder, Flip ([id number]) on 08/07/2020 11:02:55 AM Referred By: Esmer BRASWELL Confirmed By:Flip Roe MD
[2020-08-07] MEDS: COLLAGENASE CLOSTRIDIUM HIST. 30 GRAMS TUBE TP SCH (12:35)
--- NOTE | 2020-08-07 17:32 | PN ---
Progress Note, Physician History of Present Illness: Seen and examined at the bedside awake and alert BP noted to be low this am when he was intially planned for dialysis continues to feel weak but denies any dizziness, lightheadhess, chest pain or shortness of breath still has pain from rib fractures - Current Medication List Current Medications: Active Medications Acetaminophen (Tylenol -) 650 mg PO Q4H PRN PRN Reason: PAIN 1-3 Last Admin: 08/07/20 09:01 Dose: 650 mg Documented by: Albuterol/Ipratropium (Duoneb -) 1 amp NEB Q6H PRN PRN Reason: SHORTNESS OF BREATH Apixaban (Eliquis -) 5 mg PO BID [facility] Last Admin: 08/07/20 09:01 Dose: 5 mg Documented by: Atorvastatin Calcium (Lipitor -) 40 mg PO HS [facility] Last Admin: 08/06/20 21:10 Dose: 40 mg Documented by: Carvedilol (Coreg -) 25 mg PO BID [facility] Last Admin: 08/07/20 09:01 Dose: Not Given Documented by: Collagenase (Santyl -) 1 applic TP DAILY [facility]; Protocol Last Admin: 08/07/20 12:35 Dose: 1 applic Documented by: Sodium Chloride (Normal Saline -) 250 mls @ 3,000 mls/hr IV PRN PRN PRN Reason: Hypotension during Dialysis Stop: 08/07/20 11:49 Insulin Aspart (Novolog Vial Sliding Scale -) 1 vial SQ ACHS [facility]; Protocol Last Admin: 08/07/20 16:30 Dose: Not Given Documented by: Lisinopril (Prinivil) 10 mg PO DAILY [facility] Last Admin: 08/07/20 09:11 Dose: Not Given Documented by: Oxycodone HCl (Roxicodone -) 5 mg PO Q4H PRN PRN Reason: PAIN LEVEL 6-10 Last Admin: 08/07/20 12:07 Dose: 5 mg Documented by: Pantoprazole Sodium (Protonix -) 40 mg PO DAILY [facility] Last Admin: 08/07/20 09:13 Dose: 40 mg Documented by: Sevelamer Carbonate (Renvela -) 2,400 mg PO TIDCM [facility] Last Admin: 08/07/20 12:07 Dose: 2,400 mg Documented by: - Objective Vital Signs: Vital Signs Temperature 98.6 F 08/07/20 14:05 Pulse Rate 110 H 08/07/20 14:05 Respiratory Rate 20 08/07/20 14:05 Blood Pressure 107/65 08/07/20 14:05 O2 Sat by Pulse Oximetry (%) 94 L 08/07/20 09:30 Constitutional: Yes: No Distress, Calm Neck: Yes: Supple Respiratory: Yes: Regular Gastrointestinal: Yes: Soft, Abdomen, Obese Extremities: No: Cyanosis Edema: No Labs: CBC, BMP 08/07/20 08:45 08/07/20 08:45 INR, PTT INR 1.13 (0.83-1.09) H 07/31/20 21:10 Assessment/Plan 64 year hold male with history of ESRD on HD (MWF), PVD, DM, atrial fibrillation on Eliquis who presented from home with weakness and an inability to ambulate. 1. Generalized weakness 2. ESRD on HD 3. Recent syncope 4. DM 5. Hypertension 6. Renal Osteodystrophy 7. PVD 8. Atrial fibrillation 9. CKD related Anemia 10. Hyponatremia in setting of renal insufficiency Will plan for abridged dialysis today for clearance with 0 UF given no evidence of hypervolemia and low BP Renal diet and 1.2L fluid restriction daily. Blood cultures negative thus far, no fevers or leukocytosis. Cardiology following BP is low, trend for now on current meds No LIZZIE needed as Hgb > 10. Continue Phos binder with meals. Will need SNF on discharge. Thank you Meet Pedro DO
[2020-08-07] MEDS ORDERED: VANCOMYCIN 1 GM in D5W (PRE-DOCKED) 1,000 MG/250 ML IVPB ONE (21:17)
[2020-08-07] MEDS: ATORVASTATIN CA 40 MG TABLET (FP) PO SCH (21:26)
--- NOTE | 2020-08-07 21:29 | PN ---
Progress Note, Physician Chief Complaint: fuv right heel wound seen this morning. - Current Medication List Current Medications: Active Medications Acetaminophen (Tylenol -) 650 mg PO Q4H PRN PRN Reason: PAIN 1-3 Last Admin: 08/07/20 18:19 Dose: 650 mg Documented by: Albuterol/Ipratropium (Duoneb -) 1 amp NEB Q6H PRN PRN Reason: SHORTNESS OF BREATH Apixaban (Eliquis -) 5 mg PO BID [facility] Last Admin: 08/07/20 21:27 Dose: 5 mg Documented by: Atorvastatin Calcium (Lipitor -) 40 mg PO HS [facility] Last Admin: 08/07/20 21:26 Dose: 40 mg Documented by: Carvedilol (Coreg -) 25 mg PO BID [facility] Last Admin: 08/07/20 09:01 Dose: Not Given Documented by: Collagenase (Santyl -) 1 applic TP DAILY [facility]; Protocol Last Admin: 08/07/20 12:35 Dose: 1 applic Documented by: Sodium Chloride (Normal Saline -) 250 mls @ 3,000 mls/hr IV PRN PRN PRN Reason: Hypotension during Dialysis Stop: 08/07/20 11:49 Piperacillin Sod/Tazobactam (Sod 3.375 gm/ Dextrose) 50 mls @ 100 mls/hr IVPB Q8H-IV [facility]; Protocol Insulin Aspart (Novolog Vial Sliding Scale -) 1 vial SQ ACHS [facility]; Protocol Last Admin: 08/07/20 21:27 Dose: 2 units Documented by: Lisinopril (Prinivil) 10 mg PO DAILY [facility] Last Admin: 08/07/20 09:11 Dose: Not Given Documented by: Oxycodone HCl (Roxicodone -) 5 mg PO Q4H PRN PRN Reason: PAIN LEVEL 6-10 Last Admin: 08/07/20 21:27 Dose: 5 mg Documented by: Pantoprazole Sodium (Protonix -) 40 mg PO DAILY [facility] Last Admin: 08/07/20 09:13 Dose: 40 mg Documented by: Sevelamer Carbonate (Renvela -) 2,400 mg PO TIDCM [facility] Last Admin: 08/07/20 17:52 Dose: 2,400 mg Documented by: Vancomycin HCl (Vancomycin (Pre-Docked)) 1,000 mg IVPB ONCE ONE; Protocol Stop: 08/07/20 21:18 - Objective Vital Signs: Vital Signs Temperature 99.3 F 08/07/20 18:55 Pulse Rate 108 H 08/07/20 19:40 Respiratory Rate 18 08/07/20 19:40 Blood Pressure 98/48 L 08/07/20 19:40 O2 Sat by Pulse Oximetry (%) 94 L 08/07/20 18:00 Wound/Incision: Yes: Other (+drainage today wound right heel, -cellulitis, -mal odor) Labs: CBC, BMP 08/07/20 08:45 08/07/20 08:45 INR, PTT INR 1.13 (0.83-1.09) H 07/31/20 21:10 Assessment/Plan om? pvd grade 2 wound Santyl dressing change daily right heel. Read and appreciated vascular note. Will follow. Post op shoe right.
--- NOTE | 2020-08-07 21:34 | PN ---
Progress Note, Physician History of Present Illness: Pt spiked to temp to 99.9 and has been hypotensive - Current Medication List Current Medications: Active Medications Acetaminophen (Tylenol -) 650 mg PO Q4H PRN PRN Reason: PAIN 1-3 Last Admin: 08/07/20 18:19 Dose: 650 mg Documented by: Albuterol/Ipratropium (Duoneb -) 1 amp NEB Q6H PRN PRN Reason: SHORTNESS OF BREATH Apixaban (Eliquis -) 5 mg PO BID [facility] Last Admin: 08/07/20 21:27 Dose: 5 mg Documented by: Atorvastatin Calcium (Lipitor -) 40 mg PO HS [facility] Last Admin: 08/07/20 21:26 Dose: 40 mg Documented by: Carvedilol (Coreg -) 25 mg PO BID [facility] Last Admin: 08/07/20 09:01 Dose: Not Given Documented by: Collagenase (Santyl -) 1 applic TP DAILY [facility]; Protocol Last Admin: 08/07/20 12:35 Dose: 1 applic Documented by: Sodium Chloride (Normal Saline -) 250 mls @ 3,000 mls/hr IV PRN PRN PRN Reason: Hypotension during Dialysis Stop: 08/07/20 11:49 Piperacillin Sod/Tazobactam (Sod 3.375 gm/ Dextrose) 50 mls @ 100 mls/hr IVPB Q8H-IV [facility]; Protocol Insulin Aspart (Novolog Vial Sliding Scale -) 1 vial SQ ACHS [facility]; Protocol Last Admin: 08/07/20 21:27 Dose: 2 units Documented by: Lisinopril (Prinivil) 10 mg PO DAILY [facility] Last Admin: 08/07/20 09:11 Dose: Not Given Documented by: Oxycodone HCl (Roxicodone -) 5 mg PO Q4H PRN PRN Reason: PAIN LEVEL 6-10 Last Admin: 08/07/20 21:27 Dose: 5 mg Documented by: Pantoprazole Sodium (Protonix -) 40 mg PO DAILY [facility] Last Admin: 08/07/20 09:13 Dose: 40 mg Documented by: Sevelamer Carbonate (Renvela -) 2,400 mg PO TIDCM [facility] Last Admin: 08/07/20 17:52 Dose: 2,400 mg Documented by: Vancomycin HCl (Vancomycin (Pre-Docked)) 1,000 mg IVPB ONCE ONE; Protocol Stop: 08/07/20 21:18 - Objective Vital Signs: Vital Signs Temperature 99.3 F 08/07/20 18:55 Pulse Rate 108 H 08/07/20 19:40 Respiratory Rate 18 08/07/20 19:40 Blood Pressure 98/48 L 08/07/20 19:40 O2 Sat by Pulse Oximetry (%) 94 L 08/07/20 18:00 Neck: Yes: WNL, Supple Cardiovascular: Yes: WNL, Regular Rate and Rhythm Respiratory: Yes: Diminished Gastrointestinal: Yes: WNL, Normal Bowel Sounds, Soft, Abdomen, Obese Labs: CBC, BMP 08/07/20 08:45 08/07/20 08:45 INR, PTT INR 1.13 (0.83-1.09) H 07/31/20 21:10 Problem List - Problems (1) Fever Assessment/Plan: ?pneumonia CT scan chest showed ribs fx's and pleural effusion w/ ? underlying infiltrate Will give one dose of zosyn/vanco BC/urine culture Check labs Code(s): R50.9 - FEVER, UNSPECIFIED (2) Near syncope Assessment/Plan: Due to unsteady gait Due to rib fracture Pt may need STR placement Code(s): R55 - SYNCOPE AND COLLAPSE (3) ESRD (end stage renal disease) Assessment/Plan: Pt on dialysis As per renal Code(s): N18.6 - END STAGE RENAL DISEASE (4) Atrial fibrillation Assessment/Plan: Heart rate controlled Cont eliquis/metoprolol Code(s): I48.91 - UNSPECIFIED ATRIAL FIBRILLATION (5) Diabetes Assessment/Plan: Cont sliding scale w/ coverage Code(s): E11.9 - TYPE 2 DIABETES MELLITUS WITHOUT COMPLICATIONS Qualifiers: Diabetes mellitus emt intermediate insulin use: unspecified retirement insulin use status Diabetes mellitus complication status: with circulatory complication (6) Foot ulcer due to secondary DM Assessment/Plan: Vascular surgeon Code(s): E13.621 - OTHER SPECIFIED DIABETES MELLITUS WITH FOOT ULCER; L97.509 - NON-PRESSURE CHRONIC ULCER OTH PRT UNSP FOOT W UNSP SEVERITY (7) HTN (hypertension) Code(s): I10 - ESSENTIAL (PRIMARY) HYPERTENSION (8) HLD (hyperlipidemia) Code(s): E78.5 - HYPERLIPIDEMIA, UNSPECIFIED
[2020-08-07] MEDS ORDERED: PIPERACILLIN/TAZOBACTAM 3.375 GM VIAL IVPB ONE (22:25)
[2020-08-07] MEDS ORDERED: DEXTROSE 5%-WATER - 50 ML IVPB ONE (22:26)
[2020-08-07] MEDS: PIPERACILLIN/TAZOB 3.375 GM 3.375 GM in DEXTROSE 5%-WATER - 50 ML IVPB SCH (22:36)
[2020-08-08] MEDS ORDERED: DEXTROSE 5%-WATER - 50 ML IVPB ONE ×3 (02:14→17:42)
[2020-08-08] MEDS ORDERED: PIPERACILLIN/TAZOBACTAM 3.375 GM VIAL IVPB ONE ×3 (02:14→17:42)
[2020-08-08] MEDS: PIPERACILLIN/TAZOB 3.375 GM 3.375 GM in DEXTROSE 5%-WATER - 50 ML IVPB SCH ×3 (02:56→17:48)
[2020-08-08] MEDS: ACETAMINOPHEN 325 MG TABLET (FP) PO PRN (06:17)
[2020-08-08] MEDS: INSULIN SLIDING SCALE (NOVOLOG) 1 VIAL SQ SCH ×4 (06:32→21:09)
[2020-08-08 06:53] LABS: BASO % 0.3 % (0-2.0); EOS % 0.4 % (0-4.5); HEMATOCRIT 33.7 % (35.4-49); HEMOGLOBIN 11.1 GM/dL (11.7-16.9); LYMPH % 4.2 % (8-40); MCH 28.2 pg (25.7-33.7); MCHC 32.9 g/dl (32.0-35.9); MEAN CELL VOLUME 85.7 fl (80-96); MEAN PLT VOLUME 10.7 fl (7.5-11.1); NEUT % 86.1 % (42.8-82.8); PLATELET COUNT 137 K/MM3 (134-434); RBC 3.94 M/mm3 (4.00-5.60); RDW 14.8 % (11.9-15.9); WHITE BLOOD COUNT 9.4 K/mm3 (4.0-10.0)
[2020-08-08 07:19] LABS: POTASSIUM 4.8 mmol/L (3.5-5.1)
[2020-08-08 07:26] LABS: ALBUMIN 2.7 g/dl (3.4-5.0); BILIRUBIN,TOTAL 1.6 mg/dL (0.2-1); BLOOD UREA NITROGEN 58.3 mg/dL (7-18); TOT PROT 6.4 g/dl (6.4-8.2)
--- NOTE | 2020-08-08 07:28 | PN ---
Progress Note, Physician Chief Complaint: Pt A&Ox3; no headache, chest pain, or dyspnea. He says his appetite is good, but his nurse says he did not eat breakfast.When asked about this, he then says he has had no appetite fpr days. History of Present Illness: Mr. Mcfadden is a 64 yr old man with PMH IDDM, ESRD (HD MWF), AF on Eliquis, PSVT, HTN, HLD, PAD (s/p right toe amputation), s/p treatment for left chest abscess 12/2019; mild ascending thoracic aneurysm (followed q 3-6 months by private print press operator), obesity; ?alcohol, now admitted for persistent weakness. Patient had a fall five days ago; at [facility], CT scan found contiguous right rib fractures. He was transferred to [facility] and admitted for 5 days. He had physical therapy today where they successfully walked him 20 steps. He refused rehab offer and was sent home. At home, he almost fell, but his and son caught him. He denies new onset weakness, numbness, tingling, cp/sob, f/c, n/v, abdominal pain. Pt is a [employer]. Last hemodialysis (HD) yesterday. PMHX: as in HPI PSHX: toe amputations. Meds: on eliquis. Allergies: pork containing products. Tob: yes Etoh: yes Rec drugs: no PCP: Jameel Jauregui Cardiology: Dr Jayne Odom Renal Doctor: Elizabet Huntley - Current Medication List Current Medications: Active Medications Acetaminophen (Tylenol -) 650 mg PO Q4H PRN PRN Reason: PAIN 1-3 Last Admin: 08/08/20 06:17 Dose: 650 mg Documented by: Albuterol/Ipratropium (Duoneb -) 1 amp NEB Q6H PRN PRN Reason: SHORTNESS OF BREATH Apixaban (Eliquis -) 5 mg PO BID [facility] Last Admin: 08/07/20 21:27 Dose: 5 mg Documented by: Atorvastatin Calcium (Lipitor -) 40 mg PO HS [facility] Last Admin: 08/07/20 21:26 Dose: 40 mg Documented by: Carvedilol (Coreg -) 25 mg PO BID [facility] Last Admin: 08/07/20 22:24 Dose: Not Given Documented by: Collagenase (Santyl -) 1 applic TP DAILY [facility]; Protocol Last Admin: 08/07/20 12:35 Dose: 1 applic Documented by: Sodium Chloride (Normal Saline -) 250 mls @ 3,000 mls/hr IV PRN PRN PRN Reason: Hypotension during Dialysis Stop: 08/07/20 11:49 Piperacillin Sod/Tazobactam (Sod 3.375 gm/ Dextrose) 50 mls @ 100 mls/hr IVPB Q8H-IV [facility]; Protocol Piperacillin Sod/Tazobactam (Sod 3.375 gm/ Dextrose) 50 mls @ 100 mls/hr IVPB Q8H-IV [facility]; Protocol Stop: 08/08/20 22:29 Last Admin: 08/08/20 02:56 Dose: 100 mls/hr Documented by: Insulin Aspart (Novolog Vial Sliding Scale -) 1 vial SQ ACHS [facility]; Protocol Last Admin: 08/08/20 06:32 Dose: Not Given Documented by: Lisinopril (Prinivil) 10 mg PO DAILY [facility] Last Admin: 08/07/20 09:11 Dose: Not Given Documented by: Oxycodone HCl (Roxicodone -) 5 mg PO Q4H PRN PRN Reason: PAIN LEVEL 6-10 Last Admin: 08/07/20 21:27 Dose: 5 mg Documented by: Pantoprazole Sodium (Protonix -) 40 mg PO DAILY [facility] Last Admin: 08/07/20 09:13 Dose: 40 mg Documented by: Sevelamer Carbonate (Renvela -) 2,400 mg PO TIDCM [facility] Last Admin: 08/07/20 17:52 Dose: 2,400 mg Documented by: - Objective Vital Signs: Vital Signs Temperature 101.2 F H 08/08/20 05:00 Pulse Rate 120 H 08/08/20 05:00 Respiratory Rate 16 08/08/20 05:00 Blood Pressure 148/81 08/08/20 05:00 O2 Sat by Pulse Oximetry (%) 96 08/08/20 05:00 Constitutional: Yes: Calm, Obese Eyes: Yes: WNL HENT: Yes: WNL Neck: Yes: WNL Cardiovascular: Yes: Pulse Irregular, S1 (variable intensity), S2 Respiratory: Yes: Regular, Diminished Gastrointestinal: Yes: Soft, Abdomen, Obese ...Rectal Exam: Yes: Deferred Genitourinary: No: Anuria Breast(s): Yes: WNL Musculoskeletal: Yes: Joint Stiffness, Muscle Weakness Extremities: Yes: Cool Edema: No Peripheral Pulses WNL: Yes Integumentary: Yes: WNL Neurological: Yes: Alert, Oriented, Weakness Psychiatric: Yes: Alert, Oriented, Other Labs: CBC, BMP 08/08/20 06:04 08/08/20 06:04 INR, PTT INR 1.13 (0.83-1.09) H 07/31/20 21:10 Abnormal Lab Results 08/08/20 08/09/20 06:04 05:47 Chloride 97 L BUN 58.3 H Creatinine 9.7 H* Total Bilirubin 1.6 H AST 11 L ALT 12 L Alkaline Phosphatase 212 H Albumin 2.7 L Vancomycin Pre-Dose 3.5 L - ....Imaging Chest X-ray: Image Reviewed EKG: Image Reviewed Assessment/Plan Mr. Mcfadden is a 64 yr old man with PMH of ESRD (HD MWF), AF on carvedilol and Eliquis, HTN, DM, HLD (hypertriglyceridemia), PAD (s/p right toe amputation); s/p treatement for left chest abscess 12/2019, sleep apnea, mild thoracic ascending aortic aneuysm), alcoholic user, obesity, BIBEMS from home for p ersistent weakness. He is admitted for near-syncope. Systolic CHF (mildly reduced LVEF; severe LAE on ECHO 12/2019). hyperprolactinemia, likely secondary to ESRD; review medications as contributors chronic right heel wound Rec: COVID negative. TNI < 0.02 x 3. EKG: AF transient hypotension 08/05/20; carvedilol and lisinopril held. Titrated off Clonidine (on beta blockers) and adjust doses of other meds, as well as consider starting spironolactone. On atorvastatin; LDL 52 mg/dL. BUN/Cr, electrolytes, daily weight, Is and Os. 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 f/u chest abscess treated 12/2019; per pulmonary, CT was to be repeated a few months later. f/u Rx of heel wound. Nutrition consult may be of benefit, though pt's insight problematic. He does say he "plans to lose weight", and now says he has had no appetite for days.
[2020-08-08 07:31] LABS: CREATININE 9.7 mg/dL (0.55-1.3)
[2020-08-08] MEDS: APIXABAN 5 MG TABLET PO SCH ×2 (09:14→21:46)
[2020-08-08] MEDS: COLLAGENASE CLOSTRIDIUM HIST. 30 GRAMS TUBE TP SCH (09:14)
[2020-08-08] MEDS: PANTOPRAZOLE 40 MG TABLET PO SCH (09:14)
[2020-08-08] MEDS: SEVELAMER CARBONATE 800 MG TAB (FP) PO SCH ×3 (09:14→17:47)
[2020-08-08] MEDS: CARVEDILOL 25 MG TABLET (FP) PO SCH ×2 (10:32→21:08)
[2020-08-08] MEDS: LISINOPRIL 10 MG TABLET PO SCH (10:33)
--- NOTE | 2020-08-08 11:40 | PN ---
Progress Note, Physician History of Present Illness: Seen and examined at the bedside awake and alert offers no acute complaints apart from right sided chest wall pain unable to tolerate dialysis yesterday due to low BP + fever yesterday evening and this am denies any chest pain, abdominal pain, N/V/D - Current Medication List Current Medications: Active Medications Acetaminophen (Tylenol -) 650 mg PO Q4H PRN PRN Reason: PAIN 1-3 Last Admin: 08/08/20 06:17 Dose: 650 mg Documented by: Albuterol/Ipratropium (Duoneb -) 1 amp NEB Q6H PRN PRN Reason: SHORTNESS OF BREATH Apixaban (Eliquis -) 5 mg PO BID [facility] Last Admin: 08/08/20 09:14 Dose: 5 mg Documented by: Atorvastatin Calcium (Lipitor -) 40 mg PO HS [facility] Last Admin: 08/07/20 21:26 Dose: 40 mg Documented by: Carvedilol (Coreg -) 25 mg PO BID [facility] Last Admin: 08/08/20 10:32 Dose: Not Given Documented by: Collagenase (Santyl -) 1 applic TP DAILY [facility]; Protocol Last Admin: 08/08/20 09:14 Dose: 1 applic Documented by: Sodium Chloride (Normal Saline -) 250 mls @ 3,000 mls/hr IV PRN PRN PRN Reason: Hypotension during Dialysis Stop: 08/07/20 11:49 Piperacillin Sod/Tazobactam (Sod 3.375 gm/ Dextrose) 50 mls @ 100 mls/hr IVPB Q8H-IV [facility]; Protocol Piperacillin Sod/Tazobactam (Sod 3.375 gm/ Dextrose) 50 mls @ 100 mls/hr IVPB Q8H-IV [facility]; Protocol Stop: 08/08/20 22:29 Last Admin: 08/08/20 09:20 Dose: 100 mls/hr Documented by: Insulin Aspart (Novolog Vial Sliding Scale -) 1 vial SQ ACHS [facility]; Protocol Last Admin: 08/08/20 06:32 Dose: Not Given Documented by: Lisinopril (Prinivil) 10 mg PO DAILY [facility] Last Admin: 08/08/20 10:33 Dose: Not Given Documented by: Oxycodone HCl (Roxicodone -) 5 mg PO Q4H PRN PRN Reason: PAIN LEVEL 6-10 Last Admin: 08/07/20 21:27 Dose: 5 mg Documented by: Pantoprazole Sodium (Protonix -) 40 mg PO DAILY [facility] Last Admin: 08/08/20 09:14 Dose: 40 mg Documented by: Sevelamer Carbonate (Renvela -) 2,400 mg PO TIDCM [facility] Last Admin: 08/08/20 09:14 Dose: 2,400 mg Documented by: - Objective Vital Signs: Vital Signs Temperature 99.5 F 08/08/20 09:25 Pulse Rate 112 H 08/08/20 09:25 Respiratory Rate 08/08/20 09:25 Blood Pressure 97/53 L 08/08/20 09:25 O2 Sat by Pulse Oximetry (%) 96 08/08/20 05:00 Constitutional: Yes: No Distress HENT: Yes: Atraumatic Neck: Yes: Supple Cardiovascular: Yes: Regular Rate and Rhythm, Other (chest wall tenderness) Respiratory: Yes: Regular, Diminished. No: SOB Gastrointestinal: Yes: Soft, Abdomen, Obese. No: Tenderness Extremities: No: Cyanosis Edema: No Neurological: Yes: Alert, Oriented Labs: CBC, BMP 08/08/20 06:04 08/08/20 06:04 INR, PTT INR 1.13 (0.83-1.09) H 07/31/20 21:10 Assessment/Plan 64 year hold male with history of ESRD on HD (MWF), PVD, DM, atrial fibrillation on Eliquis who presented from home with weakness and an inability to ambulate. 1. Generalized weakness 2. ESRD on HD 3. Recent syncope 4. DM 5. Hypertension 6. Renal Osteodystrophy 7. PVD 8. Atrial fibrillation 9. CKD related Anemia 10. Hyponatremia in setting of renal insufficiency 11. Fever Unable to tolerate dialysis yesterday due to low blood pressure, no overt acidosis/hyperkalemia/volume overload today and continues to have marginal BP so will defer dialysis to tomorrow. Blood cultures collected yesterday, check CXR today. admission blood cultures negative thus far. hold antihypertensives Continue Phos binder with meals. Vascular follow up for lower extremity wound continue empiric antibiotics, consider ID consult Thank you Meet Pedro DO
[2020-08-08] MEDS ORDERED: SODIUM CHLORIDE 1,000 ML IV SCH (11:45)
--- NOTE | 2020-08-08 16:35 | PN ---
Progress Note, Physician Chief Complaint: fuv right heel. - Current Medication List Current Medications: Active Medications Acetaminophen (Tylenol -) 650 mg PO Q4H PRN PRN Reason: PAIN 1-3 Last Admin: 08/08/20 06:17 Dose: 650 mg Documented by: Albuterol/Ipratropium (Duoneb -) 1 amp NEB Q6H PRN PRN Reason: SHORTNESS OF BREATH Apixaban (Eliquis -) 5 mg PO BID [facility] Last Admin: 08/08/20 09:14 Dose: 5 mg Documented by: Atorvastatin Calcium (Lipitor -) 40 mg PO HS [facility] Last Admin: 08/07/20 21:26 Dose: 40 mg Documented by: Carvedilol (Coreg -) 25 mg PO BID [facility] Last Admin: 08/08/20 10:32 Dose: Not Given Documented by: Collagenase (Santyl -) 1 applic TP DAILY [facility]; Protocol Last Admin: 08/08/20 09:14 Dose: 1 applic Documented by: Piperacillin Sod/Tazobactam (Sod 3.375 gm/ Dextrose) 50 mls @ 100 mls/hr IVPB Q8H-IV [facility]; Protocol Piperacillin Sod/Tazobactam (Sod 3.375 gm/ Dextrose) 50 mls @ 100 mls/hr IVPB Q8H-IV [facility]; Protocol Stop: 08/08/20 22:29 Last Admin: 08/08/20 09:20 Dose: 100 mls/hr Documented by: Sodium Chloride (Normal Saline -) 1,000 mls @ 42 mls/hr IV [facility] Stop: 08/09/20 11:44 Last Admin: 08/08/20 12:21 Dose: 42 mls/hr Documented by: Sodium Chloride (Normal Saline -) 250 mls @ 3,000 mls/hr IV PRN PRN PRN Reason: Hypotension during Dialysis Stop: 08/09/20 11:40 Vancomycin HCl (Vancomycin 1 Gm Premix -) 1,000 gm in 200,000 mls @ 200 mls/hr IVPB ONCE ONE Stop: 09/19/20 23:59 Insulin Aspart (Novolog Vial Sliding Scale -) 1 vial SQ ACHS [facility]; Protocol Last Admin: 08/08/20 12:04 Dose: 2 units Documented by: Lisinopril (Prinivil) 10 mg PO DAILY [facility] Last Admin: 08/08/20 10:33 Dose: Not Given Documented by: Oxycodone HCl (Roxicodone -) 5 mg PO Q4H PRN PRN Reason: PAIN LEVEL 6-10 Last Admin: 08/07/20 21:27 Dose: 5 mg Documented by: Pantoprazole Sodium (Protonix -) 40 mg PO DAILY [facility] Last Admin: 08/08/20 09:14 Dose: 40 mg Documented by: Sevelamer Carbonate (Renvela -) 2,400 mg PO TIDCM [facility] Last Admin: 08/08/20 12:21 Dose: 2,400 mg Documented by: - Objective Vital Signs: Vital Signs Temperature 98.1 F 08/08/20 14:13 Pulse Rate 112 H 08/08/20 09:25 Respiratory Rate 20 08/08/20 09:25 Blood Pressure 97/53 L 08/08/20 09:25 O2 Sat by Pulse Oximetry (%) 96 08/08/20 05:00 Wound/Incision: Yes: Other (+dry eschar with no dressing applied right heel) Labs: CBC, BMP 08/08/20 06:04 08/08/20 06:04 INR, PTT INR 1.13 (0.83-1.09) H 07/31/20 21:10 Assessment/Plan om? pvd grade 2 wound Santyl dressing change daily right heel. Will follow.
--- NOTE | 2020-08-08 17:08 | PN ---
Progress Note, Physician History of Present Illness: feeling better - Current Medication List Current Medications: Active Medications Acetaminophen (Tylenol -) 650 mg PO Q4H PRN PRN Reason: PAIN 1-3 Last Admin: 08/08/20 06:17 Dose: 650 mg Documented by: Albuterol/Ipratropium (Duoneb -) 1 amp NEB Q6H PRN PRN Reason: SHORTNESS OF BREATH Apixaban (Eliquis -) 5 mg PO BID [facility] Last Admin: 08/08/20 09:14 Dose: 5 mg Documented by: Atorvastatin Calcium (Lipitor -) 40 mg PO HS [facility] Last Admin: 08/07/20 21:26 Dose: 40 mg Documented by: Carvedilol (Coreg -) 25 mg PO BID [facility] Last Admin: 08/08/20 10:32 Dose: Not Given Documented by: Collagenase (Santyl -) 1 applic TP DAILY [facility]; Protocol Last Admin: 08/08/20 09:14 Dose: 1 applic Documented by: Piperacillin Sod/Tazobactam (Sod 3.375 gm/ Dextrose) 50 mls @ 100 mls/hr IVPB Q8H-IV [facility]; Protocol Piperacillin Sod/Tazobactam (Sod 3.375 gm/ Dextrose) 50 mls @ 100 mls/hr IVPB Q8H-IV [facility]; Protocol Stop: 08/08/20 22:29 Last Admin: 08/08/20 09:20 Dose: 100 mls/hr Documented by: Sodium Chloride (Normal Saline -) 1,000 mls @ 42 mls/hr IV ASDIR [facility] Stop: 08/09/20 11:44 Last Admin: 08/08/20 12:21 Dose: 42 mls/hr Documented by: Sodium Chloride (Normal Saline -) 250 mls @ 3,000 mls/hr IV PRN PRN PRN Reason: Hypotension during Dialysis Stop: 08/09/20 11:40 Vancomycin HCl (Vancomycin 1 Gm Premix -) 1,000 gm in 200,000 mls @ 200 mls/hr IVPB ONCE ONE Stop: 09/19/20 23:59 Insulin Aspart (Novolog Vial Sliding Scale -) 1 vial SQ ACHS [facility]; Protocol Last Admin: 08/08/20 12:04 Dose: 2 units Documented by: Lisinopril (Prinivil) 10 mg PO DAILY [facility] Last Admin: 08/08/20 10:33 Dose: Not Given Documented by: Oxycodone HCl (Roxicodone -) 5 mg PO Q4H PRN PRN Reason: PAIN LEVEL 6-10 Last Admin: 08/07/20 21:27 Dose: 5 mg Documented by: Pantoprazole Sodium (Protonix -) 40 mg PO DAILY [facility] Last Admin: 08/08/20 09:14 Dose: 40 mg Documented by: Sevelamer Carbonate (Renvela -) 2,400 mg PO TIDCM [facility] Last Admin: 08/08/20 12:21 Dose: 2,400 mg Documented by: - Objective Vital Signs: Vital Signs Temperature 98.1 F 08/08/20 14:13 Pulse Rate 112 H 08/08/20 09:25 Respiratory Rate 08/08/20 09:25 Blood Pressure 97/53 L 08/08/20 09:25 O2 Sat by Pulse Oximetry (%) 96 08/08/20 05:00 Constitutional: Yes: No Distress HENT: Yes: Atraumatic Neck: Yes: Supple Cardiovascular: Yes: Pulse Irregular Respiratory: Yes: Rhonchi Extremities: Yes: WNL Neurological: Yes: Alert, Oriented Labs: CBC, BMP 08/08/20 06:04 08/08/20 06:04 INR, PTT INR 1.13 (0.83-1.09) H 07/31/20 21:10 Problem List - Problems (1) Near syncope Assessment/Plan: tele monitoring cardiology on board stable Code(s): R55 - SYNCOPE AND COLLAPSE (2) Atrial fibrillation Assessment/Plan: on meds Ac Code(s): I48.91 - UNSPECIFIED ATRIAL FIBRILLATION (3) Diabetes Assessment/Plan: sliding scale insulin Code(s): E11.9 - TYPE 2 DIABETES MELLITUS WITHOUT COMPLICATIONS Qualifiers: Diabetes mellitus [employer] insulin use: unspecified [employer] insulin use status Diabetes mellitus complication status: with circulatory complication (4) ESRD (end stage renal disease) Assessment/Plan: renal consult for hd Code(s): N18.6 - END STAGE RENAL DISEASE (5) HLD (hyperlipidemia) Assessment/Plan: on meds Code(s): E78.5 - HYPERLIPIDEMIA, UNSPECIFIED (6) HTN (hypertension) Assessment/Plan: monitor on meds Code(s): I10 - ESSENTIAL (PRIMARY) HYPERTENSION (7) Rib fractures Assessment/Plan: prn pain meds Code(s): S22.39XA - FRACTURE OF ONE RIB, UNSP SIDE, INIT FOR CLOS FX (8) ESRD (end stage renal disease) Assessment/Plan: on hd Code(s): N18.6 - END STAGE RENAL DISEASE (9) Fever Assessment/Plan: bcx pending Code(s): R50.9 - FEVER, UNSPECIFIED Assessment/Plan covering fo dr freeman today
[2020-08-08] MEDS: ATORVASTATIN CA 40 MG TABLET (FP) PO SCH (21:46)
[2020-08-09] MEDS: INSULIN SLIDING SCALE (NOVOLOG) 1 VIAL SQ SCH ×4 (06:17→22:59)
--- NOTE | 2020-08-09 09:23 | PN ---
Progress Note, Physician History of Present Illness: Mr. Mcfadden is a 64 yr old man with PMH IDDM, ESRD (HD MWF), AF on Eliquis, PSVT, HTN, HLD, PAD (s/p right toe amputation), s/p treatment for left chest abscess 12/2019; mild ascending thoracic aneurysm (followed q 3-6 months by private video games storywriter), obesity; ?alcohol, now admitted for persistent weakness. Patient had a fall five days ago; at [facility], CT scan found contiguous right rib fractures. He was transferred to [facility] and admitted for 5 days. He had physical therapy today where they successfully walked him 20 steps. He refused rehab offer and was sent home. At home, he almost fell, but his and son caught him. He denies new onset weakness, numbness, tingling, cp/sob, f/c, n/v, abdominal pain. Pt is a [employer]. Last hemodialysis (HD) yesterday. PMHX: as in HPI PSHX: toe amputations. Meds: on eliquis. Allergies: pork containing products. Tob: yes Etoh: yes Rec drugs: no PCP: Jameel Jauregui Cardiology: Dr Jayne Odom Renal Doctor: Elizabet Huntley - Current Medication List Current Medications: Active Medications Acetaminophen (Tylenol -) 650 mg PO Q4H PRN PRN Reason: PAIN 1-3 Last Admin: 08/08/20 06:17 Dose: 650 mg Documented by: Albuterol/Ipratropium (Duoneb -) 1 amp NEB Q6H PRN PRN Reason: SHORTNESS OF BREATH Apixaban (Eliquis -) 5 mg PO BID [facility] Last Admin: 08/08/20 21:46 Dose: 5 mg Documented by: Atorvastatin Calcium (Lipitor -) 40 mg PO HS [facility] Last Admin: 08/08/20 21:46 Dose: 40 mg Documented by: Carvedilol (Coreg -) 25 mg PO BID [facility] Last Admin: 08/08/20 21:08 Dose: Not Given Documented by: Collagenase (Santyl -) 1 applic TP DAILY [facility]; Protocol Last Admin: 08/08/20 09:14 Dose: 1 applic Documented by: Piperacillin Sod/Tazobactam (Sod 3.375 gm/ Dextrose) 50 mls @ 100 mls/hr IVPB Q8H-IV [facility]; Protocol Sodium Chloride (Normal Saline -) 1,000 mls @ 42 mls/hr IV [facility] Stop: 08/09/20 11:44 Last Admin: 08/08/20 12:21 Dose: 42 mls/hr Documented by: Sodium Chloride (Normal Saline -) 250 mls @ 3,000 mls/hr IV PRN PRN PRN Reason: Hypotension during Dialysis Stop: 08/09/20 11:40 Vancomycin HCl (Vancomycin 1 Gm Premix -) 1,000 gm in 200,000 mls @ 200 mls/hr IVPB ONCE ONE Stop: 09/19/20 23:59 Insulin Aspart (Novolog Vial Sliding Scale -) 1 vial SQ ACHS [facility]; Protocol Last Admin: 08/09/20 06:17 Dose: 2 units Documented by: Lisinopril (Prinivil) 10 mg PO DAILY [facility] Last Admin: 08/08/20 10:33 Dose: Not Given Documented by: Pantoprazole Sodium (Protonix -) 40 mg PO DAILY [facility] Last Admin: 08/08/20 09:14 Dose: 40 mg Documented by: Sevelamer Carbonate (Renvela -) 2,400 mg PO TIDCM [facility] Last Admin: 08/08/20 17:47 Dose: 2,400 mg Documented by: - Objective Vital Signs: Vital Signs Temperature 98.3 F 08/09/20 06:00 Pulse Rate 113 H 08/09/20 06:00 Respiratory Rate 18 08/09/20 06:00 Blood Pressure 131/72 08/09/20 06:00 O2 Sat by Pulse Oximetry (%) 97 08/09/20 06:00 Eyes: Yes: WNL, Conjunctiva Clear, EOM Intact HENT: Yes: WNL, Atraumatic, Normocephalic Neck: Yes: WNL, Supple, Trachea Midline Cardiovascular: Yes: WNL, Regular Rate and Rhythm Respiratory: Yes: WNL, Regular, CTA Bilaterally Gastrointestinal: Yes: WNL, Normal Bowel Sounds Genitourinary: Yes: WNL Musculoskeletal: Yes: WNL Extremities: Yes: WNL Edema: No Integumentary: Yes: WNL Neurological: Yes: WNL, Alert, Oriented ...Motor Strength: WNL Psychiatric: Yes: WNL Labs: CBC, BMP 08/08/20 06:04 08/08/20 06:04 INR, PTT INR 1.13 (0.83-1.09) H 07/31/20 21:10 Assessment/Plan Mr. Mcfadden is a 64 yr old man with PMH of ESRD (HD MWF), AF on carvedilol and Eliquis, HTN, DM, HLD (hypertriglyceridemia), PAD (s/p right toe amputation); s/p treatement for left chest abscess 12/2019, sleep apnea, mild thoracic ascending aortic aneuysm), alcoholic user, obesity, BIBEMS from home for persistent weakness. He is admitted for near-syncope. Systolic CHF (mildly reduced LVEF; severe LAE on ECHO 12/2019). hyperprolactinemia, likely secondary to ESRD; review medications as contributors chronic right heel wound Rec: COVID negative. TNI < 0.02 x 3. EKG: AF transient hypotension 08/05/20; carvedilol and lisinopril held. Titrated off Clonidine (on beta blockers) and adjust doses of other meds, as well as consider starting spironolactone. On atorvastatin; LDL 52 mg/dL. BUN/Cr, electrolytes, daily weight, Is and Os. 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 f/u chest abscess treated 12/2019; per pulmonary, CT was to be repeated a few months later. f/u Rx of heel wound. Nutrition consult may be of benefit, though pt's insight problematic. He does say he "plans to lose weight", and now says he has had no appetite for days.
[2020-08-09] MEDS: SEVELAMER CARBONATE 800 MG TAB (FP) PO SCH ×3 (09:39→17:36)
[2020-08-09] MEDS: CARVEDILOL 25 MG TABLET (FP) PO SCH ×2 (09:39→22:59)
[2020-08-09] MEDS: PANTOPRAZOLE 40 MG TABLET PO SCH (09:40)
[2020-08-09] MEDS: COLLAGENASE CLOSTRIDIUM HIST. 30 GRAMS TUBE TP SCH (09:40)
[2020-08-09] MEDS: APIXABAN 5 MG TABLET PO SCH ×2 (09:40→22:59)
[2020-08-09] MEDS: LISINOPRIL 10 MG TABLET PO SCH (09:40)
[2020-08-09] MEDS ORDERED: SODIUM CHLORIDE 250 ML IV PRN ×2 (11:40→13:43)
--- NOTE | 2020-08-09 12:08 | CON.ID ---
Consult Consult Specialty:: infectious diseases Referred by:: Reason for Consultation:: fever,weakness - History of Present Illness Chief Complaint: weakness,fever History of Present Illness: 64-year-old male status post near syncope with recent discharge from [facility] for fall resulting in multiple rib fractures We will proceed with syncope evaluation and admit for observation and PT evaluation patient known to me from previous admissions being admitted for the above reasons yesterday patient spiked a fever and i was called to evaluate the patient for the same currently patient feels very weak and tired - History Source History Provided By: Patient Limitations to Obtaining History: No Limitations - Past Medical History Cardio/Vascular: Yes: AFIB, CAD, CHF (systolic/diastolic), HTN Pulmonary: Yes: Other (no previous chest trauma). No: Asthma, COPD, O2 Depende nt, Pneumonia, Previously Intubated Renal/: Yes: Renal Failure, Hemodialysis Infectious Disease: Yes: Other (osteomyelitis) Psych: Yes: Other Musculoskeletal: Yes: Chronic low back pain Endocrine: Yes: Diabetes Mellitus - Past Surgical History Past Surgical History: Yes: Amputation (right 5th toe), AV Fistula/Graft - Alcohol/Substance Use Hx Alcohol Use: No - Smoking History Smoking history: Never smoked Have you smoked in the past 12 months: No Aproximately how many cigarettes per day: 0 - Social History Usual Living Arrangement: With Spouse ADL: Family Assistance History of Recent Travel: No Home Medications - Allergies Allergies/Adverse Reactions: Allergies Allergy/AdvReac Type Severity Reaction Status Date / Time Pork/Porcine Containing Allergy Verified 07/31/20 18:35 Products - Home Medications Home Medications: Ambulatory Orders RX: Atorvastatin Ca [Lipitor] 40 mg PO HS #30 tablet 10/03/14 RX: cloNIDine HCL [Catapres -] 0.1 mg PO BID #60 tablet 10/03/14 RX: Metoclopramide HCl [Reglan] 5 mg PO TID #0 tablet 04/28/16 RX: Pantoprazole Sodium [Protonix] 40 mg PO DAILY #0 tablet. 04/28/16 RX: Sevelamer Carbonate [Renvela -] 2,400 mg PO TID 04/28/16 RX: Ammonium Lactate Lotion [Lac-Hydrin 12] 1 applic TP BID PRN bottle 02/08/18 RX: Clopidogrel Bisulfate [Plavix] 75 mg PO DAILY #30 tablet 08/19/18 RX: Apixaban [Eliquis -] 5 mg PO BID tablet 12/29/19 RX: Carvedilol [Coreg -] 25 mg PO BID tablet 12/29/19 RX: Epoetin Lenny [Procrit -] 20,000 unit SQ Q2D ml 12/29/19 RX: Epoetin Lenny [Procrit -] 20,000 unit SQ Q2D ml 12/29/19 RX: Lisinopril [Prinivil] 10 mg PO DAILY tablet 12/29/19 Insulin Degludec [Tresiba] 24 units DAILY 07/31/20 Family Medical History Family History: Unremarkable Review of Systems - Review of Systems Constitutional: reports: Fever, Weakness Eyes: reports: No Symptoms HENT: reports: No Symptoms Neck: reports: No Symptoms Cardiovascular: reports: No Symptoms Respiratory: reports: No Symptoms Gastrointestinal: reports: No Symptoms Genitourinary: reports: No Symptoms Musculoskeletal: reports: No Symptoms Integumentary: reports: No Symptoms Neurological: reports: No Symptoms Endocrine: reports: No Symptoms Hematology/Lymphatic: reports: No Symptoms Psychiatric: reports: No Symptoms Physical Exam Vital Signs: Vital Signs Temperature 97.6 F 08/09/20 09:38 Pulse Rate 106 H 08/09/20 09:38 Respiratory Rate 18 08/09/20 09:38 Blood Pressure 126/66 08/09/20 09:38 O2 Sat by Pulse Oximetry (%) 98 08/09/20 09:38 Constitutional: Yes: Calm, Mild Distress, Other (w[place]) HENT: Yes: Atraumatic Neck: Yes: Supple, Trachea Midline Cardiovascular: Yes: Pulse Irregular Respiratory: Yes: Regular, CTA Bilaterally Gastrointestinal: Yes: Normal Bowel Sounds, Soft Musculoskeletal: Yes: WNL Extremities: Yes: WNL Neurological: Yes: Alert, Oriented Psychiatric: Yes: Alert, Oriented Labs: CBC, BMP 08/08/20 06:04 08/08/20 06:04 Imaging - Results Chest X-ray: Report Reviewed, Image Reviewed Cat Scan: Report Reviewed, Image Reviewed Assessment/Plan Problem List - Problems (1) Fever Code(s): R50.9 - FEVER, UNSPECIFIED (2) Near syncope Code(s): R55 - SYNCOPE AND COLLAPSE (3) ESRD (end stage renal disease) Code(s): N18.6 - END STAGE RENAL DISEASE (4) Atrial fibrillation Code(s): I48.91 - UNSPECIFIED ATRIAL FIBRILLATION (5) Diabetes Code(s): E11.9 - TYPE 2 DIABETES MELLITUS WITHOUT COMPLICATIONS Qualifiers: Diabetes mellitus mcfp insulin use: unspecified mcfp insulin use status Diabetes mellitus complication status: with circulatory complication (6) Foot ulcer due to secondary DM Code(s): E13.621 - OTHER SPECIFIED DIABETES MELLITUS WITH FOOT ULCER; L97.509 - NON-PRESSURE CHRONIC ULCER OTH PRT UNSP FOOT W UNSP SEVERITY (7) HTN (hypertension) Code(s): I10 - ESSENTIAL (PRIMARY) HYPERTENSION (8) HLD (hyperlipidemia) Code(s): E78.5 - HYPERLIPIDEMIA, UNSPECIFIED plan will hold off on starting abx at the moment monitor rest as per the team
[2020-08-09] MEDS ORDERED: DEXTROSE 5%-WATER - 50 ML IVPB ONE (12:33)
[2020-08-09] MEDS ORDERED: cefTRIAXone SODIUM 1 GM VIAL ONE (12:33)
[2020-08-09] MEDS: CEFTRIAXONE 1 GM in DEXTROSE 5%-WATER - 50 ML IVPB SCH (12:38)
[2020-08-09] MEDS: PIPERACILLIN/TAZOB 3.375 GM 3.375 GM in DEXTROSE 5%-WATER - 50 ML IVPB SCH (12:59)
[2020-08-09] MEDS ORDERED: VANCOMYCIN 1 GRAM (PRE-DOCKED) 1,000 MG/250 ML BAG IVPB ONE (13:15)
[2020-08-09 14:47] LABS: HEMATOCRIT 34.2 % (35.4-49); HEMOGLOBIN 11.1 GM/dL (11.7-16.9); MCH 27.9 pg (25.7-33.7); MCHC 32.6 g/dl (32.0-35.9); MEAN CELL VOLUME 85.7 fl (80-96); MEAN PLT VOLUME 10.6 fl (7.5-11.1); PLATELET COUNT 138 K/MM3 (134-434); RBC 3.99 M/mm3 (4.00-5.60); RDW 15.3 % (11.9-15.9); WHITE BLOOD COUNT 10.6 K/mm3 (4.0-10.0)
--- NOTE | 2020-08-09 15:01 | PN ---
Progress Note, Physician History of Present Illness: Seen and examined at the bedside awake and alert has no acute complaints no shortness of breath, chest pain, abdominal pain still has chest wall pain - Current Medication List Current Medications: Active Medications Acetaminophen (Tylenol -) 650 mg PO Q4H PRN PRN Reason: PAIN 1-3 Last Admin: 08/08/20 06:17 Dose: 650 mg Documented by: Albuterol/Ipratropium (Duoneb -) 1 amp NEB Q6H PRN PRN Reason: SHORTNESS OF BREATH Apixaban (Eliquis -) 5 mg PO BID [facility] Last Admin: 08/09/20 09:40 Dose: 5 mg Documented by: Atorvastatin Calcium (Lipitor -) 40 mg PO HS [facility] Last Admin: 08/08/20 21:46 Dose: 40 mg Documented by: Carvedilol (Coreg -) 25 mg PO BID [facility] Last Admin: 08/09/20 09:39 Dose: 25 mg Documented by: Collagenase (Santyl -) 1 applic TP DAILY [facility]; Protocol Last Admin: 08/09/20 09:40 Dose: 1 applic Documented by: Sodium Chloride (Normal Saline -) 250 mls @ 3,000 mls/hr IV PRN PRN PRN Reason: Hypotension during Dialysis Stop: 08/10/20 11:39 Ceftriaxone Sodium 1 gm/ (Dextrose) 50 mls @ 100 mls/hr IVPB DAILY [facility]; Protocol Last Admin: 08/09/20 12:38 Dose: 100 mls/hr Documented by: Sodium Chloride (Normal Saline -) 250 mls @ 3,000 mls/hr IV PRN PRN PRN Reason: Hypotension during Dialysis Stop: 08/10/20 13:43 Insulin Aspart (Novolog Vial Sliding Scale -) 1 vial SQ ACHS [facility]; Protocol Last Admin: 08/09/20 12:38 Dose: 2 units Documented by: Lisinopril (Prinivil) 10 mg PO DAILY [facility] Last Admin: 08/09/20 09:40 Dose: 10 mg Documented by: Pantoprazole Sodium (Protonix -) 40 mg PO DAILY [facility] Last Admin: 08/09/20 09:40 Dose: 40 mg Documented by: Sevelamer Carbonate (Renvela -) 2,400 mg PO TIDCM [facility] Last Admin: 08/09/20 12:38 Dose: 2,400 mg Documented by: - Objective Vital Signs: Vital Signs Temperature 98.4 F 08/09/20 14:01 Pulse Rate 110 H 08/09/20 14:01 Respiratory Rate 18 08/09/20 14:01 Blood Pressure 119/64 08/09/20 14:01 O2 Sat by Pulse Oximetry (%) 98 08/09/20 09:38 Constitutional: Yes: No Distress HENT: Yes: Atraumatic Neck: Yes: Supple Cardiovascular: Yes: Regular Rate and Rhythm Respiratory: Yes: Regular Gastrointestinal: Yes: Soft Extremities: No: Cold, Cool, Cyanosis Neurological: Yes: Alert, Oriented Labs: CBC, BMP 08/09/20 14:25 INR, PTT INR 1.13 (0.83-1.09) H 07/31/20 21:10 Assessment/Plan 64 year hold male with history of ESRD on HD (MWF), PVD, DM, atrial fibrillation on Eliquis who presented from home with weakness and an inability to ambulate. 1. Generalized weakness 2. ESRD on HD 3. Recent syncope 4. DM 5. Hypertension 6. Renal Osteodystrophy 7. PVD 8. Atrial fibrillation 9. CKD related Anemia 10. Hyponatremia in setting of renal insufficiency 11. Fever For dialysis today, with UF as tolerated Blood pressures improved Continue empiric antibiotics no fevers in the last 24 hours admission blood cultures negative thus far. hold antihypertensives for now. Continue Phos binder with meals. Vascular follow up for lower extremity wound Thank you Meet Pedro DO
[2020-08-09 15:41] LABS: BLOOD UREA NITROGEN 80.3 mg/dL (7-18); CALCIUM 9.1 mg/dL (8.5-10.1); PHOSPHOROUS 6.8 mg/dL (2.5-4.9); POTASSIUM 5.3 mmol/L (3.5-5.1)
[2020-08-09 15:55] LABS: CREATININE 11.5 mg/dL (0.55-1.3)
--- NOTE | 2020-08-09 21:21 | PN ---
Progress Note, Physician History of Present Illness: No new complaints - Current Medication List Current Medications: Active Medications Acetaminophen (Tylenol -) 650 mg PO Q4H PRN PRN Reason: PAIN 1-3 Last Admin: 08/08/20 06:17 Dose: 650 mg Documented by: Albuterol/Ipratropium (Duoneb -) 1 amp NEB Q6H PRN PRN Reason: SHORTNESS OF BREATH Apixaban (Eliquis -) 5 mg PO BID [facility] Last Admin: 08/09/20 09:40 Dose: 5 mg Documented by: Atorvastatin Calcium (Lipitor -) 40 mg PO HS [facility] Last Admin: 08/08/20 21:46 Dose: 40 mg Documented by: Carvedilol (Coreg -) 25 mg PO BID [facility] Last Admin: 08/09/20 09:39 Dose: 25 mg Documented by: Collagenase (Santyl -) 1 applic TP DAILY [facility]; Protocol Last Admin: 08/09/20 09:40 Dose: 1 applic Documented by: Sodium Chloride (Normal Saline -) 250 mls @ 3,000 mls/hr IV PRN PRN PRN Reason: Hypotension during Dialysis Stop: 08/10/20 11:39 Ceftriaxone Sodium 1 gm/ (Dextrose) 50 mls @ 100 mls/hr IVPB DAILY [facility]; Protocol Last Admin: 08/09/20 12:38 Dose: 100 mls/hr Documented by: Sodium Chloride (Normal Saline -) 250 mls @ 3,000 mls/hr IV PRN PRN PRN Reason: Hypotension during Dialysis Stop: 08/10/20 13:43 Insulin Aspart (Novolog Vial Sliding Scale -) 1 vial SQ ACHS [facility]; Protocol Last Admin: 08/09/20 17:10 Dose: 2 units Documented by: Lisinopril (Prinivil) 10 mg PO DAILY [facility] Last Admin: 08/09/20 09:40 Dose: 10 mg Documented by: Pantoprazole Sodium (Protonix -) 40 mg PO DAILY [facility] Last Admin: 08/09/20 09:40 Dose: 40 mg Documented by: Sevelamer Carbonate (Renvela -) 2,400 mg PO TIDCM [facility] Last Admin: 08/09/20 17:36 Dose: 2,400 mg Documented by: - Objective Vital Signs: Vital Signs Temperature 98.8 F 08/09/20 18:44 Pulse Rate 81 08/09/20 20:45 Respiratory Rate 18 08/09/20 20:45 Blood Pressure 70/45 L 08/09/20 20:45 O2 Sat by Pulse Oximetry (%) 99 08/09/20 18:44 Cardiovascular: Yes: Pulse Irregular Respiratory: Yes: Diminished Gastrointestinal: Yes: WNL, Normal Bowel Sounds, Soft, Abdomen, Obese Extremities: Yes: Other (AV graft) Edema: LLE: Trace, RLE: Trace Labs: CBC, BMP 08/09/20 14:25 08/09/20 14:25 INR, PTT INR 1.13 (0.83-1.09) H 07/31/20 21:10 Problem List - Problems (1) Fever Assessment/Plan: ?pneumonia CT scan chest showed ribs fx's and pleural effusion w/ ? underlying infiltrate Cont ceftriaxone BC/urine culture WBC normal Pt afebrile today ID consult noted Code(s): R50.9 - FEVER, UNSPECIFIED (2) Near syncope Assessment/Plan: Due to unsteady gait Due to rib fracture Heart rate stable BNP elevated to >22,000 CT scan chest showed rib fractures/pleural effusions and ?superimposed infiltrate Code(s): R55 - SYNCOPE AND COLLAPSE (3) ESRD (end stage renal disease) Assessment/Plan: Pt on dialysis As per renal Code(s): N18.6 - END STAGE RENAL DISEASE (4) Atrial fibrillation Assessment/Plan: Heart rate controlled Cont eliquis/BB Code(s): I48.91 - UNSPECIFIED ATRIAL FIBRILLATION (5) Diabetes Assessment/Plan: Cont sliding scale w/ coverage Rt heel ulcer Pt seen by podiatry Cont wound care w/ santyl Code(s): E11.9 - TYPE 2 DIABETES MELLITUS WITHOUT COMPLICATIONS Qualifiers: Diabetes mellitus emt intermediate insulin use: unspecified emt intermediate insulin use status Diabetes mellitus complication status: with circulatory complication (6) Foot ulcer due to secondary DM Assessment/Plan: Cont wound care for Rt heel Code(s): E13.621 - OTHER SPECIFIED DIABETES MELLITUS WITH FOOT ULCER; L97.509 - NON-PRESSURE CHRONIC ULCER OTH PRT UNSP FOOT W UNSP SEVERITY (7) HTN (hypertension) Assessment/Plan: Monitor BP wc has been hypotensive Code(s): I10 - ESSENTIAL (PRIMARY) HYPERTENSION (8) HLD (hyperlipidemia) Assessment/Plan: Cont lipitor Code(s): E78.5 - HYPERLIPIDEMIA, UNSPECIFIED
[2020-08-09] MEDS: ATORVASTATIN CA 40 MG TABLET (FP) PO SCH (22:59)
[2020-08-10] MEDS: ACETAMINOPHEN 325 MG TABLET (FP) PO PRN ×2 (01:07→21:47)
[2020-08-10] MEDS: INSULIN SLIDING SCALE (NOVOLOG) 1 VIAL SQ SCH ×4 (06:25→21:39)
[2020-08-10] MEDS: SEVELAMER CARBONATE 800 MG TAB (FP) PO SCH ×3 (08:25→17:27)
[2020-08-10] MEDS ORDERED: cefTRIAXone SODIUM 1 GM VIAL ONE (09:47)
[2020-08-10] MEDS ORDERED: DEXTROSE 5%-WATER - 50 ML IVPB ONE (09:47)
[2020-08-10] MEDS: CARVEDILOL 25 MG TABLET (FP) PO SCH ×2 (09:58→21:38)
[2020-08-10] MEDS: APIXABAN 5 MG TABLET PO SCH ×2 (09:58→21:38)
[2020-08-10] MEDS: PANTOPRAZOLE 40 MG TABLET PO SCH (09:58)
[2020-08-10] MEDS: CEFTRIAXONE 1 GM in DEXTROSE 5%-WATER - 50 ML IVPB SCH (09:59)
[2020-08-10] MEDS: COLLAGENASE CLOSTRIDIUM HIST. 30 GRAMS TUBE TP SCH (11:13)
--- NOTE | 2020-08-10 11:59 | PN ---
Progress Note, Physician History of Present Illness: wbc has increased still c/o of weakness - Current Medication List Current Medications: Active Medications Acetaminophen (Tylenol -) 650 mg PO Q4H PRN PRN Reason: PAIN 1-3 Last Admin: 08/10/20 01:07 Dose: 650 mg Documented by: Albuterol/Ipratropium (Duoneb -) 1 amp NEB Q6H PRN PRN Reason: SHORTNESS OF BREATH Apixaban (Eliquis -) 5 mg PO BID [facility] Last Admin: 08/10/20 09:58 Dose: 5 mg Documented by: Atorvastatin Calcium (Lipitor -) 40 mg PO HS [facility] Last Admin: 08/09/20 22:59 Dose: 40 mg Documented by: Carvedilol (Coreg -) 25 mg PO BID [facility] Last Admin: 08/10/20 09:58 Dose: 25 mg Documented by: Collagenase (Santyl -) 1 applic TP DAILY [facility]; Protocol Last Admin: 08/10/20 11:13 Dose: 1 applic Documented by: Ceftriaxone Sodium 1 gm/ (Dextrose) 50 mls @ 100 mls/hr IVPB DAILY [facility]; Protocol Last Admin: 08/10/20 09:59 Dose: 100 mls/hr Documented by: Sodium Chloride (Normal Saline -) 250 mls @ 3,000 mls/hr IV PRN PRN PRN Reason: Hypotension during Dialysis Stop: 08/10/20 13:43 Insulin Aspart (Novolog Vial Sliding Scale -) 1 vial SQ ACHS [facility]; Protocol Last Admin: 08/10/20 11:17 Dose: 2 units Documented by: Lisinopril (Prinivil) 10 mg PO DAILY [facility] Last Admin: 08/09/20 09:40 Dose: 10 mg Documented by: Multivit/Ca Carb/B Cmplx/FA/Prenat (Nephro-Keiht -) 1 tablet PO DAILY [facility] Pantoprazole Sodium (Protonix -) 40 mg PO DAILY [facility] Last Admin: 08/10/20 09:58 Dose: 40 mg Documented by: Sevelamer Carbonate (Renvela -) 2,400 mg PO TIDCM [facility] Last Admin: 08/10/20 08:25 Dose: 2,400 mg Documented by: - Objective Vital Signs: Vital Signs Temperature 97.8 F 08/10/20 10:00 Pulse Rate 95 H 10/03/20 10:00 Respiratory Rate 18 08/10/20 10:00 Blood Pressure 108/60 08/10/20 10:00 O2 Sat by Pulse Oximetry (%) 98 08/10/20 10:00 Constitutional: Yes: Calm, Mild Distress Cardiovascular: Yes: S1, S2 Respiratory: Yes: Regular, CTA Bilaterally Gastrointestinal: Yes: Normal Bowel Sounds, Soft Musculoskeletal: Yes: WNL Extremities: Yes: WNL Neurological: Yes: Alert, Oriented Psychiatric: Yes: Alert, Oriented Labs: CBC, BMP 08/09/20 14:25 08/09/20 14:25 INR, PTT INR 1.13 (0.83-1.09) H 07/31/20 21:10 Assessment/Plan Problem List - Problems (1) Fever Code(s): R50.9 - FEVER, UNSPECIFIED (2) Near syncope Code(s): R55 - SYNCOPE AND COLLAPSE (3) ESRD (end stage renal disease) Code(s): N18.6 - END STAGE RENAL DISEASE (4) Atrial fibrillation Code(s): I48.91 - UNSPECIFIED ATRIAL FIBRILLATION (5) Diabetes Code(s): E11.9 - TYPE 2 DIABETES MELLITUS WITHOUT COMPLICATIONS Qualifiers: Diabetes mellitus computer terminal operator insulin use: unspecified computer terminal operator insulin use status Diabetes mellitus complication status: with circulatory complication (6) Foot ulcer due to secondary DM Code(s): E13.621 - OTHER SPECIFIED DIABETES MELLITUS WITH FOOT ULCER; L97.509 - NON-PRESSURE CHRONIC ULCER OTH PRT UNSP FOOT W UNSP SEVERITY (7) HTN (hypertension) Code(s): I10 - ESSENTIAL (PRIMARY) HYPERTENSION (8) HLD (hyperlipidemia) Code(s): E78.5 - HYPERLIPIDEMIA, UNSPECIFIED plan continue abx await for all results repeat xray rest as per the team
--- NOTE | 2020-08-10 13:29 | PN ---
Progress Note, Physician History of Present Illness: Pt seen and examined at bedside. He is awake and alert. He denies shortness of breath. - Current Medication List Current Medications: Active Medications Acetaminophen (Tylenol -) 650 mg PO Q4H PRN PRN Reason: PAIN 1-3 Last Admin: 08/10/20 01:07 Dose: 650 mg Documented by: Albuterol/Ipratropium (Duoneb -) 1 amp NEB Q6H PRN PRN Reason: SHORTNESS OF BREATH Apixaban (Eliquis -) 5 mg PO BID [facility] Last Admin: 08/10/20 09:58 Dose: 5 mg Documented by: Atorvastatin Calcium (Lipitor -) 40 mg PO HS [facility] Last Admin: 08/09/20 22:59 Dose: 40 mg Documented by: Carvedilol (Coreg -) 25 mg PO BID [facility] Last Admin: 08/10/20 09:58 Dose: 25 mg Documented by: Collagenase (Santyl -) 1 applic TP DAILY [facility]; Protocol Last Admin: 08/10/20 11:13 Dose: 1 applic Documented by: Ceftriaxone Sodium 1 gm/ (Dextrose) 50 mls @ 100 mls/hr IVPB DAILY [facility]; Protocol Last Admin: 08/10/20 09:59 Dose: 100 mls/hr Documented by: Sodium Chloride (Normal Saline -) 250 mls @ 3,000 mls/hr IV PRN PRN PRN Reason: Hypotension during Dialysis Stop: 08/10/20 13:43 Insulin Aspart (Novolog Vial Sliding Scale -) 1 vial SQ ACHS [facility]; Protocol Last Admin: 08/10/20 11:17 Dose: 2 units Documented by: Lisinopril (Prinivil) 10 mg PO DAILY [facility] Last Admin: 08/09/20 09:40 Dose: 10 mg Documented by: Multivit/Ca Carb/B Cmplx/FA/Prenat (Nephro-Keith -) 1 tablet PO DAILY [facility] Pantoprazole Sodium (Protonix -) 40 mg PO DAILY [facility] Last Admin: 08/10/20 09:58 Dose: 40 mg Documented by: Sevelamer Carbonate (Renvela -) 2,400 mg PO TIDCM [facility] Last Admin: 08/10/20 12:26 Dose: 2,400 mg Documented by: - Objective Vital Signs: Vital Signs Temperature 97.8 F 10/03/20 10:00 Pulse Rate 95 H 08/10/20 10:00 Respiratory Rate 18 08/10/20 10:00 Blood Pressure 108/60 08/10/20 10:00 O2 Sat by Pulse Oximetry (%) 98 08/10/20 10:00 Constitutional: Yes: Calm Eyes: Yes: Conjunctiva Clear HENT: Yes: Atraumatic Neck: Yes: Supple Cardiovascular: Yes: S1, S2 Respiratory: Yes: CTA Bilaterally Gastrointestinal: Yes: Soft Genitourinary: Yes: WNL Musculoskeletal: Yes: WNL Edema: Yes Edema: LLE: Trace, RLE: Trace Neurological: Yes: Oriented Psychiatric: Yes: Oriented Labs: CBC, BMP 08/09/20 14:25 08/09/20 14:25 INR, PTT INR 1.13 (0.83-1.09) H 07/31/20 21:10 Assessment/Plan Current Medications Generic Name Dose Route Start Last Admin Trade Name Freq PRN Reason Stop Dose Admin Acetaminophen 650 mg 08/01/20 23:59 08/10/20 01:07 Tylenol - PO 650 mg Q4H PRN Administration PAIN 1-3 Albuterol/Ipratropium 1 amp 08/06/20 19:18 Duoneb - NEB Q6H PRN SHORTNESS OF BREATH Apixaban 5 mg 08/01/20 10:00 08/10/20 09:58 Eliquis - PO 5 mg BID [facility] Administration Atorvastatin Calcium 40 mg 08/01/20 22:00 08/09/20 22:59 Lipitor - PO 40 mg HS [facility] Administration Carvedilol 25 mg 08/01/20 10:00 08/10/20 09:58 Coreg - PO 25 mg BID [facility] Administration Collagenase 1 applic 08/03/20 10:00 08/10/20 11:13 Santyl - TP 1 applic DAILY [facility] Administration Protocol Ceftriaxone Sodium 1 gm/ 50 mls @ 100 mls/hr 08/09/20 12:15 08/10/20 09:59 Dextrose IVPB 100 mls/hr DAILY [facility] Administration Protocol Sodium Chloride 250 mls @ 3,000 mls/hr 08/09/20 13:43 Normal Saline - IV 08/10/20 13:43 PRN PRN Hypotension during Dialysis Insulin Aspart 1 vial 08/02/20 16:30 08/10/20 11:17 Novolog Vial Sliding Scale - SQ 2 units ACHS [facility] Administration Protocol Lisinopril 10 mg 08/01/20 10:00 08/09/20 09:40 Prinivil PO 10 mg DAILY [facility] Administration Multivit/Ca Carb/B Cmplx/FA/Prenat 1 tablet 08/11/20 10:00 Nephro-Keith - PO DAILY [facility] Pantoprazole Sodium 40 mg 08/01/20 10:00 08/10/20 09:58 Protonix - PO 40 mg DAILY [facility] Administration Sevelamer Carbonate 2,400 mg 08/01/20 08:00 08/10/20 12:26 Renvela - PO 2,400 mg TIDCM [facility] Administration 1. Generalized weakness 2. ESRD on HD 3. Recent syncope 4. DM 5. Hypertension 6. Renal Osteodystrophy 7. PVD 8. Atrial fibrillation 9. Anemia 10. Hyponatremia in setting of renal insufficiency 11. Fever Plan - pt last dialyzed yesterday - next HD on Wednesday - monitor for fevers - monitor bp - cont sevelamer - renal diet - vascular follow up
[2020-08-10] MEDS: LISINOPRIL 10 MG TABLET PO SCH (15:00)
[2020-08-10] MEDS: ATORVASTATIN CA 40 MG TABLET (FP) PO SCH (21:38)
--- NOTE | 2020-08-10 22:51 | PN ---
Progress Note, Physician History of Present Illness: No new change - Current Medication List Current Medications: Active Medications Acetaminophen (Tylenol -) 650 mg PO Q4H PRN PRN Reason: PAIN 1-3 Last Admin: 08/10/20 21:47 Dose: 650 mg Documented by: Albuterol/Ipratropium (Duoneb -) 1 amp NEB Q6H PRN PRN Reason: SHORTNESS OF BREATH Apixaban (Eliquis -) 5 mg PO BID [facility] Last Admin: 08/10/20 21:38 Dose: 5 mg Documented by: Atorvastatin Calcium (Lipitor -) 40 mg PO HS [facility] Last Admin: 08/10/20 21:38 Dose: 40 mg Documented by: Carvedilol (Coreg -) 25 mg PO BID [facility] Last Admin: 08/10/20 21:38 Dose: 25 mg Documented by: Collagenase (Santyl -) 1 applic TP DAILY [facility]; Protocol Last Admin: 08/10/20 11:13 Dose: 1 applic Documented by: Ceftriaxone Sodium 1 gm/ (Dextrose) 50 mls @ 100 mls/hr IVPB DAILY [facility]; Protocol Last Admin: 08/10/20 09:59 Dose: 100 mls/hr Documented by: Sodium Chloride (Normal Saline -) 250 mls @ 3,000 mls/hr IV PRN PRN PRN Reason: Hypotension during Dialysis Stop: 08/10/20 13:43 Insulin Aspart (Novolog Vial Sliding Scale -) 1 vial SQ ACHS [facility]; Protocol Last Admin: 08/10/20 21:39 Dose: 2 units Documented by: Lisinopril (Prinivil) 10 mg PO DAILY [facility] Last Admin: 08/10/20 15:00 Dose: Not Given Documented by: Multivit/Ca Carb/B Cmplx/FA/Prenat (Nephro-Keith -) 1 tablet PO DAILY [facility] Pantoprazole Sodium (Protonix -) 40 mg PO DAILY [facility] Last Admin: 08/10/20 09:58 Dose: 40 mg Documented by: Sevelamer Carbonate (Renvela -) 2,400 mg PO TIDCM [facility] Last Admin: 08/10/20 17:27 Dose: 2,400 mg Documented by: - Objective Vital Signs: Vital Signs Temperature 98.8 F 08/10/20 20:32 Pulse Rate 120 H 08/10/20 20:32 Respiratory Rate 18 08/10/20 20:32 Blood Pressure 119/50 L 08/10/20 20:32 O2 Sat by Pulse Oximetry (%) 100 08/10/20 20:32 Cardiovascular: Yes: WNL, Regular Rate and Rhythm Respiratory: Yes: WNL, Regular, CTA Bilaterally Gastrointestinal: Yes: WNL, Normal Bowel Sounds, Soft, Abdomen, Obese Labs: CBC, BMP 08/09/20 14:25 08/09/20 14:25 INR, PTT INR 1.13 (0.83-1.09) H 07/31/20 21:10 Problem List - Problems (1) Fever Assessment/Plan: ?pneumonia CT scan chest showed ribs fx's and pleural effusion w/ ? underlying infiltrate Cont ceftriaxone/vanco BC/urine culture WBC normal Code(s): R50.9 - FEVER, UNSPECIFIED (2) Near syncope Assessment/Plan: Due to unsteady gait Due to rib fracture Pt may need STR placement Code(s): R55 - SYNCOPE AND COLLAPSE (3) ESRD (end stage renal disease) Assessment/Plan: Pt on dialysis As per renal Code(s): N18.6 - END STAGE RENAL DISEASE (4) Atrial fibrillation Assessment/Plan: Heart rate controlled Cont eliquis/metoprolol Code(s): I48.91 - UNSPECIFIED ATRIAL FIBRILLATION (5) Diabetes Assessment/Plan: Cont sliding scale w/ coverage Code(s): E11.9 - TYPE 2 DIABETES MELLITUS WITHOUT COMPLICATIONS Qualifiers: Diabetes mellitus nursing home insulin use: unspecified nursing home insulin use status Diabetes mellitus complication status: with circulatory complication (6) Foot ulcer due to secondary DM Assessment/Plan: Vascular surgeon consult Code(s): E13.621 - OTHER SPECIFIED DIABETES MELLITUS WITH FOOT ULCER; L97.509 - NON-PRESSURE CHRONIC ULCER OTH PRT UNSP FOOT W UNSP SEVERITY (7) HTN (hypertension) Code(s): I10 - ESSENTIAL (PRIMARY) HYPERTENSION (8) HLD (hyperlipidemia) Code(s): E78.5 - HYPERLIPIDEMIA, UNSPECIFIED
[2020-08-11] MEDS: ACETAMINOPHEN 325 MG TABLET (FP) PO PRN ×2 (05:53→12:53)
[2020-08-11] MEDS: INSULIN SLIDING SCALE (NOVOLOG) 1 VIAL SQ SCH ×4 (06:11→21:43)
[2020-08-11 07:10] LABS: BASO % 0.3 % (0-2.0); EOS % 0.6 % (0-4.5); HEMATOCRIT 32.8 % (35.4-49); HEMOGLOBIN 10.7 GM/dL (11.7-16.9); LYMPH % 5.8 % (8-40); MCH 28.1 pg (25.7-33.7); MCHC 32.6 g/dl (32.0-35.9); MEAN CELL VOLUME 86.2 fl (80-96); MEAN PLT VOLUME 11.1 fl (7.5-11.1); MONO % 9.5 % (3.8-10.2); NEUT % 83.8 % (42.8-82.8); PLATELET COUNT 138 K/MM3 (134-434); RBC 3.81 M/mm3 (4.00-5.60); RDW 15.5 % (11.9-15.9); WHITE BLOOD COUNT 11.4 K/mm3 (4.0-10.0)
[2020-08-11 07:41] LABS: POTASSIUM 4.3 mmol/L (3.5-5.1)
[2020-08-11 07:46] LABS: ALBUMIN 2.3 g/dl (3.4-5.0); BILIRUBIN,TOTAL 3.8 mg/dL (0.2-1); BLOOD UREA NITROGEN 55.8 mg/dL (7-18); CALCIUM 8.8 mg/dL (8.5-10.1); TOT PROT 6.2 g/dl (6.4-8.2)
[2020-08-11] MEDS: SEVELAMER CARBONATE 800 MG TAB (FP) PO SCH ×3 (08:10→16:37)
[2020-08-11] MEDS ORDERED: cefTRIAXone SODIUM 1 GM VIAL ONE (09:00)
[2020-08-11] MEDS ORDERED: DEXTROSE 5%-WATER - 50 ML IVPB ONE (09:00)
[2020-08-11] MEDS: VITAMIN B COMP W-C 1 EA TABLET (NEPHRO-VITE) PO SCH (09:06)
[2020-08-11] MEDS: PANTOPRAZOLE 40 MG TABLET PO SCH (09:06)
[2020-08-11] MEDS: APIXABAN 5 MG TABLET PO SCH ×2 (09:06→21:42)
[2020-08-11] MEDS: CEFTRIAXONE 1 GM in DEXTROSE 5%-WATER - 50 ML IVPB SCH (09:06)
[2020-08-11] MEDS: LISINOPRIL 10 MG TABLET PO SCH (09:08)
[2020-08-11] MEDS: CARVEDILOL 25 MG TABLET (FP) PO SCH ×2 (09:09→21:42)
[2020-08-11] MEDS: COLLAGENASE CLOSTRIDIUM HIST. 30 GRAMS TUBE TP SCH (09:09)
[2020-08-11] MEDS ORDERED: guaiFENesin 200 MG/10 ML 10 ML UNIT-DOSE CUPS PO PRN (12:44)
[2020-08-11] MEDS ORDERED: oxyCODONE HCL 5 MG TABLET PO ONE (13:00)
--- NOTE | 2020-08-11 13:39 | PN ---
Progress Note, Physician History of Present Illness: Pt seen and examined at bedside. He is awake and alert. He denies shortness of breath. - Current Medication List Current Medications: Active Medications Acetaminophen (Tylenol -) 650 mg PO Q4H PRN PRN Reason: PAIN 1-3 Last Admin: 08/11/20 12:53 Dose: 650 mg Documented by: Albuterol/Ipratropium (Duoneb -) 1 amp NEB Q6H PRN PRN Reason: SHORTNESS OF BREATH Apixaban (Eliquis -) 5 mg PO BID [facility] Last Admin: 08/11/20 09:06 Dose: 5 mg Documented by: Atorvastatin Calcium (Lipitor -) 40 mg PO HS [facility] Last Admin: 08/10/20 21:38 Dose: 40 mg Documented by: Carvedilol (Coreg -) 25 mg PO BID [facility] Last Admin: 08/11/20 09:09 Dose: Not Given Documented by: Collagenase (Santyl -) 1 applic TP DAILY [facility]; Protocol Last Admin: 08/11/20 09:09 Dose: 1 applic Documented by: Guaifenesin (Robitussin -) 5 ml PO Q6H PRN PRN Reason: COUGH Last Admin: 08/11/20 12:52 Dose: 5 ml Documented by: Ceftriaxone Sodium 1 gm/ (Dextrose) 50 mls @ 100 mls/hr IVPB DAILY [facility]; Protocol Last Admin: 08/11/20 09:06 Dose: 100 mls/hr Documented by: Sodium Chloride (Normal Saline -) 250 mls @ 3,000 mls/hr IV PRN PRN PRN Reason: Hypotension during Dialysis Stop: 08/10/20 13:43 Insulin Aspart (Novolog Vial Sliding Scale -) 1 vial SQ ACHS [facility]; Protocol Last Admin: 08/11/20 12:01 Dose: 2 units Documented by: Lisinopril (Prinivil) 10 mg PO DAILY [facility] Last Admin: 08/11/20 09:08 Dose: Not Given Documented by: Multivit/Ca Carb/B Cmplx/FA/Prenat (Nephro-Keith -) 1 tablet PO DAILY [facility] Last Admin: 08/11/20 09:06 Dose: 1 tablet Documented by: Pantoprazole Sodium (Protonix -) 40 mg PO DAILY [facility] Last Admin: 08/11/20 09:06 Dose: 40 mg Documented by: Sevelamer Carbonate (Renvela -) 2,400 mg PO TIDCM [facility] Last Admin: 08/11/20 11:59 Dose: 2,400 mg Documented by: - Objective Vital Signs: Vital Signs Temperature 97.9 F 08/11/20 08:12 Pulse Rate 104 H 08/11/20 08:12 Respiratory Rate 19 08/11/20 08:12 Blood Pressure 104/63 08/11/20 08:12 O2 Sat by Pulse Oximetry (%) 100 08/11/20 09:00 Constitutional: Yes: Calm Eyes: Yes: Conjunctiva Clear HENT: Yes: Atraumatic Neck: Yes: Supple Cardiovascular: Yes: S1, S2 Respiratory: Yes: CTA Bilaterally Gastrointestinal: Yes: Normal Bowel Sounds, Soft Genitourinary: Yes: WNL Musculoskeletal: Yes: WNL Edema: Yes Edema: LLE: 1+, RLE: 1+ Neurological: Yes: Oriented Psychiatric: Yes: Oriented Labs: CBC, BMP 08/11/20 06:00 08/11/20 06:00 INR, PTT INR 1.13 (0.83-1.09) H 07/31/20 21:10 Assessment/Plan Current Medications Generic Name Dose Route Start Last Admin Trade Name Freq PRN Reason Stop Dose Admin Acetaminophen 650 mg 08/01/20 23:59 08/11/20 12:53 Tylenol - PO 650 mg Q4H PRN Administration PAIN 1-3 Albuterol/Ipratropium 1 amp 08/06/20 19:18 Duoneb - NEB Q6H PRN SHORTNESS OF BREATH Apixaban 5 mg 08/01/20 10:00 08/11/20 09:06 Eliquis - PO 5 mg BID [facility] Administration Atorvastatin Calcium 40 mg 08/01/20 22:00 08/10/20 21:38 Lipitor - PO 40 mg HS [facility] Administration Carvedilol 25 mg 08/01/20 10:00 08/11/20 09:09 Coreg - PO Not Given BID [facility] Collagenase 1 applic 08/03/20 10:00 08/11/20 09:09 Santyl - TP 1 applic DAILY [facility] Administration Protocol Guaifenesin 5 ml 08/11/20 12:44 08/11/20 12:52 Robitussin - PO 5 ml Q6H PRN Administration COUGH Ceftriaxone Sodium 1 gm/ 50 mls @ 100 mls/hr 10/02/20 12:15 08/11/20 09:06 Dextrose IVPB 100 mls/hr DAILY [facility] Administration Protocol Sodium Chloride 250 mls @ 3,000 mls/hr 08/09/20 13:43 Normal Saline - IV 08/10/20 13:43 PRN PRN Hypotension during Dialysis Insulin Aspart 1 vial 08/02/20 16:30 08/11/20 12:01 Novolog Vial Sliding Scale - SQ 2 units ACHS [facility] Administration Protocol Lisinopril 10 mg 08/01/20 10:00 08/11/20 09:08 Prinivil PO Not Given DAILY [facility] Multivit/Ca Carb/B Cmplx/FA/Prenat 1 tablet 08/11/20 10:00 08/11/20 09:06 Nephro-Keith - PO 1 tablet DAILY [facility] Administration Pantoprazole Sodium 40 mg 08/01/20 10:00 08/11/20 09:06 Protonix - PO 40 mg DAILY [facility] Administration Sevelamer Carbonate 2,400 mg 08/01/20 08:00 08/11/20 11:59 Renvela - PO 2,400 mg TIDCM [facility] Administration 1. Generalized weakness 2. ESRD on HD 3. Recent syncope 4. DM 5. Hypertension 6. Renal Osteodystrophy 7. PVD 8. Atrial fibrillation 9. Anemia 10. Hyponatremia in setting of renal insufficiency 11. Fever Plan - HD tomorrow - orders written - renal diet - epogen with hd - monitor for fevers - monitor bp - cont sevelamer
[2020-08-11] MEDS: ATORVASTATIN CA 40 MG TABLET (FP) PO SCH (21:42)
--- NOTE | 2020-08-11 23:28 | PN ---
Progress Note, Physician History of Present Illness: Pt having increase pain pleuritic on rt rib cage - Current Medication List Current Medications: Active Medications Acetaminophen (Tylenol -) 650 mg PO Q4H PRN PRN Reason: PAIN 1-3 Last Admin: 08/11/20 12:53 Dose: 650 mg Documented by: Apixaban (Eliquis -) 5 mg PO BID [facility] Last Admin: 08/11/20 21:42 Dose: 5 mg Documented by: Atorvastatin Calcium (Lipitor -) 40 mg PO HS [facility] Last Admin: 08/11/20 21:42 Dose: 40 mg Documented by: Carvedilol (Coreg -) 25 mg PO BID [facility] Last Admin: 08/11/20 21:42 Dose: 25 mg Documented by: Collagenase (Santyl -) 1 applic TP DAILY [facility]; Protocol Last Admin: 08/11/20 09:09 Dose: 1 applic Documented by: Epoetin Lenny (Procrit -) 20,000 unit IVPUSH ONCE ONE Stop: 08/12/20 13:40 Guaifenesin (Robitussin -) 5 ml PO Q6H PRN PRN Reason: COUGH Last Admin: 08/11/20 12:52 Dose: 5 ml Documented by: Ceftriaxone Sodium 1 gm/ (Dextrose) 50 mls @ 100 mls/hr IVPB DAILY [facility]; Protocol Last Admin: 08/11/20 09:06 Dose: 100 mls/hr Documented by: Sodium Chloride (Normal Saline -) 250 mls @ 3,000 mls/hr IV PRN PRN PRN Reason: Hypotension during Dialysis Stop: 08/10/20 13:43 Sodium Chloride (Normal Saline -) 250 mls @ 3,000 mls/hr IV PRN PRN PRN Reason: Hypotension during Dialysis Stop: 08/12/20 13:40 Insulin Aspart (Novolog Vial Sliding Scale -) 1 vial SQ ACHS [facility]; Protocol Last Admin: 08/11/20 21:43 Dose: 2 units Documented by: Lisinopril (Prinivil) 10 mg PO DAILY [facility] Last Admin: 08/11/20 09:08 Dose: Not Given Documented by: Multivit/Ca Carb/B Cmplx/FA/Prenat (Nephro-Keith -) 1 tablet PO DAILY [facility] Last Admin: 08/11/20 09:06 Dose: 1 tablet Documented by: Pantoprazole Sodium (Protonix -) 40 mg PO DAILY [facility] Last Admin: 08/11/20 09:06 Dose: 40 mg Documented by: Sevelamer Carbonate (Renvela -) 2,400 mg PO TIDCM [facility] Last Admin: 08/11/20 16:37 Dose: 2,400 mg Documented by: - Objective Vital Signs: Vital Signs Temperature 98.2 F 08/11/20 17:45 Pulse Rate 93 H 08/11/20 17:45 Respiratory Rate 18 08/11/20 17:45 Blood Pressure 97/62 08/11/20 17:45 O2 Sat by Pulse Oximetry (%) 96 08/11/20 17:45 Neck: Yes: WNL, Supple Cardiovascular: Yes: WNL, Regular Rate and Rhythm Respiratory: Yes: Diminished Gastrointestinal: Yes: WNL, Normal Bowel Sounds, Soft Labs: CBC, BMP 08/11/20 06:00 08/11/20 06:00 INR, PTT INR 1.13 (0.83-1.09) H 07/31/20 21:10 Problem List - Problems (1) Fever Assessment/Plan: ?pneumonia CT scan chest showed ribs fx's and pleural effusion w/ ? underlying infiltrate Cont ceftriaxone/vanco BC/urine culture WBC slightly elevated Pt afebrile Code(s): R50.9 - FEVER, UNSPECIFIED (2) Near syncope Assessment/Plan: Due to unsteady gait Due to rib fracture Pt may need STR placement Code(s): R55 - SYNCOPE AND COLLAPSE (3) ESRD (end stage renal disease) Assessment/Plan: Pt on dialysis As per renal Code(s): N18.6 - END STAGE RENAL DISEASE (4) Atrial fibrillation Assessment/Plan: Heart rate controlled Cont eliquis/metoprolol Code(s): I48.91 - UNSPECIFIED ATRIAL FIBRILLATION (5) Diabetes Assessment/Plan: Cont sliding scale w/ coverage Code(s): E11.9 - TYPE 2 DIABETES MELLITUS WITHOUT COMPLICATIONS Qualifiers: Diabetes mellitus oil heaterman insulin use: unspecified oil heaterman insulin use status Diabetes mellitus complication status: with circulatory complication (6) Foot ulcer due to secondary DM Assessment/Plan: Vascular surgeon consult Code(s): E13.621 - OTHER SPECIFIED DIABETES MELLITUS WITH FOOT ULCER; L97.509 - NON-PRESSURE CHRONIC ULCER OTH PRT UNSP FOOT W UNSP SEVERITY (7) HTN (hypertension) Code(s): I10 - ESSENTIAL (PRIMARY) HYPERTENSION (8) HLD (hyperlipidemia) Code(s): E78.5 - HYPERLIPIDEMIA, UNSPECIFIED
[2020-08-12] MEDS: ACETAMINOPHEN 325 MG TABLET (FP) PO PRN (03:49)
[2020-08-12] MEDS: INSULIN SLIDING SCALE (NOVOLOG) 1 VIAL SQ SCH ×4 (06:37→22:15)
[2020-08-12] MEDS: SEVELAMER CARBONATE 800 MG TAB (FP) PO SCH ×3 (08:53→17:39)
--- NOTE | 2020-08-12 09:41 | PN ---
Progress Note, Physician History of Present Illness: Mr. Mcfadden is a 64 yr old man with PMH IDDM, ESRD (HD MWF), AF on Eliquis, PSVT, HTN, HLD, PAD (s/p right toe amputation), s/p treatment for left chest abscess 12/2019; mild ascending thoracic aneurysm (followed q 3-6 months by private bus van driver), obesity; ?alcohol, now admitted for persistent weakness. Patient had a fall five days ago; at [facility], CT scan found contiguous right rib fractures. He was transferred to [facility] and admitted for 5 days. He had physical therapy today where they successfully walked him 20 steps. He refused rehab offer and was sent home. At home, he almost fell, but his and son caught him. He denies new onset weakness, numbness, tingling, cp/sob, f/c, n/v, abdominal pain. Pt is a Religious. Last hemodialysis (HD) yesterday. PMHX: as in HPI PSHX: toe amputations. Meds: on eliquis. Allergies: pork containing products. Tob: yes Etoh: yes Rec drugs: no PCP: Jameel Jauregui Cardiology: Dr Jayne Odom Renal Doctor: Elizabet Huntley - Current Medication List Current Medications: Active Medications Acetaminophen (Tylenol -) 650 mg PO Q4H PRN PRN Reason: PAIN 1-3 Last Admin: 08/12/20 03:49 Dose: 650 mg Documented by: Apixaban (Eliquis -) 5 mg PO BID [facility] Last Admin: 08/11/20 21:42 Dose: 5 mg Documented by: Atorvastatin Calcium (Lipitor -) 40 mg PO HS [facility] Last Admin: 08/11/20 21:42 Dose: 40 mg Documented by: Carvedilol (Coreg -) 25 mg PO BID [facility] Last Admin: 08/11/20 21:42 Dose: 25 mg Documented by: Collagenase (Santyl -) 1 applic TP DAILY [facility]; Protocol Last Admin: 08/11/20 09:09 Dose: 1 applic Documented by: Epoetin Lenny (Procrit -) 20,000 unit IVPUSH ONCE ONE Stop: 08/12/20 13:40 Guaifenesin (Robitussin -) 5 ml PO Q6H PRN PRN Reason: COUGH Last Admin: 08/11/20 12:52 Dose: 5 ml Documented by: Ceftriaxone Sodium 1 gm/ (Dextrose) 50 mls @ 100 mls/hr IVPB DAILY [facility]; Protocol Last Admin: 08/11/20 09:06 Dose: 100 mls/hr Documented by: Sodium Chloride (Normal Saline -) 250 mls @ 3,000 mls/hr IV PRN PRN PRN Reason: Hypotension during Dialysis Stop: 08/13/20 09:59 Insulin Aspart (Novolog Vial Sliding Scale -) 1 vial SQ ACHS [facility]; Protocol Last Admin: 08/12/20 06:37 Dose: 2 units Documented by: Lisinopril (Prinivil) 10 mg PO DAILY [facility] Last Admin: 08/11/20 09:08 Dose: Not Given Documented by: Multivit/Ca Carb/B Cmplx/FA/Prenat (Nephro-Keith -) 1 tablet PO DAILY [facility] Last Admin: 08/11/20 09:06 Dose: 1 tablet Documented by: Pantoprazole Sodium (Protonix -) 40 mg PO DAILY [facility] Last Admin: 08/11/20 09:06 Dose: 40 mg Documented by: Sevelamer Carbonate (Renvela -) 2,400 mg PO TIDCM [facility] Last Admin: 08/12/20 08:53 Dose: 2,400 mg Documented by: - Objective Vital Signs: Vital Signs Temperature 98.0 F 08/12/20 06:00 Pulse Rate 98 H 08/12/20 06:00 Respiratory Rate 18 08/12/20 06:00 Blood Pressure 89/50 L 08/12/20 06:00 O2 Sat by Pulse Oximetry (%) 95 08/12/20 06:00 Eyes: Yes: WNL, Conjunctiva Clear, EOM Intact HENT: Yes: WNL, Atraumatic, Normocephalic Neck: Yes: WNL, Supple, Trachea Midline Cardiovascular: Yes: WNL, Regular Rate and Rhythm Respiratory: Yes: WNL, Regular, CTA Bilaterally Gastrointestinal: Yes: WNL, Normal Bowel Sounds Genitourinary: Yes: WNL Musculoskeletal: Yes: WNL Extremities: Yes: Erythema Edema: No Integumentary: Yes: WNL Neurological: Yes: WNL, Alert, Oriented ...Motor Strength: WNL Psychiatric: Yes: WNL Labs: CBC, BMP 08/11/20 06:00 10/04/20 06:00 INR, PTT INR 1.13 (0.83-1.09) H 07/31/20 21:10 Assessment/Plan Mr. Mcfadden is a 64 yr old man with PMH of ESRD (HD MWF), AF on carvedilol and Eliquis, HTN, DM, HLD (hypertriglyceridemia), PAD (s/p right toe amputation); s/p treatement for left chest abscess 12/2019, sleep apnea, mild thoracic ascending aortic aneuysm), alcoholic user, obesity, BIBEMS from home for pe rsistent weakness. He is admitted for near-syncope. Systolic CHF (mildly reduced LVEF; severe LAE on ECHO 12/2019). hyperprolactinemia, likely secondary to ESRD; review medications as contributors chronic right heel wound Rec: COVID negative. TNI < 0.02 x 3. EKG: AF transient hypotension 08/05/20; carvedilol and lisinopril held. Titrated off Clonidine (on beta blockers) and adjust doses of other meds, as well as consider starting spironolactone. On atorvastatin; LDL 52 mg/dL. BUN/Cr, electrolytes, daily weight, Is and Os. 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 f/u chest abscess treated 12/2019; per pulmonary, CT was to be repeated a few months later. f/u Rx of heel wound. Nutrition consult may be of benefit, though pt's insight problematic. He does say he "plans to lose weight", and now says he has had no appetite for days. Due to hypotension will lower Lisinopril to 2.5 mg QD.
[2020-08-12] MEDS ORDERED: cefTRIAXone SODIUM 1 GM VIAL ONE (09:57)
[2020-08-12] MEDS ORDERED: DEXTROSE 5%-WATER - 50 ML IVPB ONE (09:57)
[2020-08-12] MEDS ORDERED: SODIUM CHLORIDE 250 ML IV PRN ×2 (10:00→11:39)
[2020-08-12] MEDS ORDERED: EPOETIN ALFA 20,000 UNIT/1 ML VIAL IVPUSH ONE (10:00)
[2020-08-12] MEDS: ALBUMIN HUMAN 25% 12.5 GM/50 ML VIAL IVPB SCH ×4 (11:15→12:42)
[2020-08-12] MEDS ORDERED: VANCOMYCIN 1 GRAM (PRE-DOCKED) 1,000 MG/250 ML BAG IVPB ONE (11:42)
--- NOTE | 2020-08-12 11:42 | PN ---
Progress Note, Physician History of Present Illness: Seen and examined at the bedside Currently on dialysis awake and alert BP is marginal 80/s50's, HR 120 On low temp, getting albumin no cp, sob, fever, chills - Current Medication List Current Medications: Active Medications Acetaminophen (Tylenol -) 650 mg PO Q4H PRN PRN Reason: PAIN 1-3 Last Admin: 08/12/20 03:49 Dose: 650 mg Documented by: Apixaban (Eliquis -) 5 mg PO BID [facility] Last Admin: 08/11/20 21:42 Dose: 5 mg Documented by: Atorvastatin Calcium (Lipitor -) 40 mg PO HS [facility] Last Admin: 08/11/20 21:42 Dose: 40 mg Documented by: Carvedilol (Coreg -) 25 mg PO BID [facility] Last Admin: 08/11/20 21:42 Dose: 25 mg Documented by: Collagenase (Santyl -) 1 applic TP DAILY [facility]; Protocol Last Admin: 08/11/20 09:09 Dose: 1 applic Documented by: Guaifenesin (Robitussin -) 5 ml PO Q6H PRN PRN Reason: COUGH Last Admin: 08/11/20 12:52 Dose: 5 ml Documented by: Ceftriaxone Sodium 1 gm/ (Dextrose) 50 mls @ 100 mls/hr IVPB DAILY [facility]; Protocol Last Admin: 08/11/20 09:06 Dose: 100 mls/hr Documented by: Sodium Chloride (Normal Saline -) 250 mls @ 3,000 mls/hr IV PRN PRN PRN Reason: Hypotension during Dialysis Stop: 08/13/20 09:59 Insulin Aspart (Novolog Vial Sliding Scale -) 1 vial SQ ACHS [facility]; Protocol Last Admin: 08/12/20 06:37 Dose: 2 units Documented by: Lisinopril (Prinivil) 10 mg PO DAILY [facility] Last Admin: 08/11/20 09:08 Dose: Not Given Documented by: Midodrine (Proamatine -) 5 mg PO TID-MID [facility] Multivit/Ca Carb/B Cmplx/FA/Prenat (Nephro-Keith -) 1 tablet PO DAILY [facility] Last Admin: 08/11/20 09:06 Dose: 1 tablet Documented by: Pantoprazole Sodium (Protonix -) 40 mg PO DAILY [facility] Last Admin: 10/04/20 09:06 Dose: 40 mg Documented by: Sevelamer Carbonate (Renvela -) 2,400 mg PO TIDCM [facility] Last Admin: 08/12/20 08:53 Dose: 2,400 mg Documented by: - Objective Vital Signs: Vital Signs Temperature 98.8 F 08/12/20 10:10 Pulse Rate 106 H 08/12/20 10:45 Respiratory Rate 18 08/12/20 10:45 Blood Pressure 92/37 L 08/12/20 10:45 O2 Sat by Pulse Oximetry (%) 96 08/12/20 09:39 Constitutional: Yes: No Distress, Calm Neck: Yes: Supple Cardiovascular: Yes: Regular Rate and Rhythm Respiratory: Yes: Regular Gastrointestinal: Yes: Soft, Abdomen, Obese Extremities: No: Cyanosis Labs: INR, PTT INR 1.13 (0.83-1.09) H 07/31/20 21:10 Assessment/Plan 64 year hold male with history of ESRD on HD (MWF), PVD, DM, atrial fibrillation on Eliquis who presented from home with weakness and an inability to ambulate. 1. Generalized weakness 2. ESRD on HD 3. Recent syncope 4. DM 5. Hypertension 6. Renal Osteodystrophy 7. PVD 8. Atrial fibrillation 9. CKD related Anemia 10. Hyponatremia in setting of renal insufficiency 11. Fever On dialysis, minimal UF given low blood pressure. Will add midodrine and albumin to help BP Antibiotics per ID, will give Vanco 1g post dialysis admission blood cultures negative, blood cutlures from last week negative hold antihypertensives for now. Continue Phos binder with meals. Vascular follow up for lower extremity wound Thank you Meet Pedro DO
[2020-08-12 11:54] LABS: HEMATOCRIT 31.9 % (35.4-49); HEMOGLOBIN 10.3 GM/dL (11.7-16.9); MCH 27.5 pg (25.7-33.7); MCHC 32.4 g/dl (32.0-35.9); MEAN CELL VOLUME 84.8 fl (80-96); MEAN PLT VOLUME 10.6 fl (7.5-11.1); PLATELET COUNT 147 K/MM3 (134-434); RBC 3.76 M/mm3 (4.00-5.60); RDW 15.1 % (11.9-15.9); WHITE BLOOD COUNT 14.4 K/mm3 (4.0-10.0)
[2020-08-12 11:55] LABS: BLOOD UREA NITROGEN 64.1 mg/dL (7-18); CALCIUM 9.1 mg/dL (8.5-10.1); POTASSIUM 4.6 mmol/L (3.5-5.1)
--- NOTE | 2020-08-12 11:58 | PN ---
Progress Note, Physician Chief Complaint: fuv right heel. - Current Medication List Current Medications: Active Medications Acetaminophen (Tylenol -) 650 mg PO Q4H PRN PRN Reason: PAIN 1-3 Last Admin: 08/12/20 03:49 Dose: 650 mg Documented by: Albumin Human (Albumin Human 25%) 12.5 gm IVPB Q30M [facility] Stop: 08/12/20 13:16 Apixaban (Eliquis -) 5 mg PO BID [facility] Last Admin: 08/11/20 21:42 Dose: 5 mg Documented by: Atorvastatin Calcium (Lipitor -) 40 mg PO HS [facility] Last Admin: 08/11/20 21:42 Dose: 40 mg Documented by: Carvedilol (Coreg -) 25 mg PO BID [facility] Last Admin: 08/11/20 21:42 Dose: 25 mg Documented by: Collagenase (Santyl -) 1 applic TP DAILY [facility]; Protocol Last Admin: 08/11/20 09:09 Dose: 1 applic Documented by: Guaifenesin (Robitussin -) 5 ml PO Q6H PRN PRN Reason: COUGH Last Admin: 08/11/20 12:52 Dose: 5 ml Documented by: Ceftriaxone Sodium 1 gm/ (Dextrose) 50 mls @ 100 mls/hr IVPB DAILY [facility]; Protocol Last Admin: 08/11/20 09:06 Dose: 100 mls/hr Documented by: Sodium Chloride (Normal Saline -) 250 mls @ 3,000 mls/hr IV PRN PRN PRN Reason: Hypotension during Dialysis Stop: 08/13/20 09:59 Sodium Chloride (Normal Saline -) 250 mls @ 3,000 mls/hr IV PRN PRN PRN Reason: Hypotension during Dialysis Stop: 08/13/20 11:39 Vancomycin HCl 1,000 mg/ (Dextrose) 250 mls @ 166.667 mls/hr IVPB ONCE ONE; Protocol Stop: 08/12/20 13:11 Insulin Aspart (Novolog Vial Sliding Scale -) 1 vial SQ ACHS [facility]; Protocol Last Admin: 08/12/20 06:37 Dose: 2 units Documented by: Lisinopril (Prinivil) 10 mg PO DAILY [facility] Last Admin: 08/11/20 09:08 Dose: Not Given Documented by: Midodrine (Proamatine -) 5 mg PO TID-MID [facility] Multivit/Ca Carb/B Cmplx/FA/Prenat (Nephro-Keith -) 1 tablet PO DAILY [facility] Last Admin: 08/11/20 09:06 Dose: 1 tablet Documented by: Pantoprazole Sodium (Protonix -) 40 mg PO DAILY [facility] Last Admin: 08/11/20 09:06 Dose: 40 mg Documented by: Sevelamer Carbonate (Renvela -) 2,400 mg PO TIDCM [facility] Last Admin: 08/12/20 08:53 Dose: 2,400 mg Documented by: - Objective Vital Signs: Vital Signs Temperature 98.8 F 08/12/20 10:10 Pulse Rate 106 H 08/12/20 10:45 Respiratory Rate 18 08/12/20 10:45 Blood Pressure 92/37 L 08/12/20 10:45 O2 Sat by Pulse Oximetry (%) 96 08/12/20 09:39 Wound/Incision: Yes: Other (wound right heel dry eschar) Labs: CBC, BMP 08/12/20 10:15 INR, PTT INR 1.13 (0.83-1.09) H 07/31/20 21:10 Assessment/Plan om? pvd grade 2 wound Santyl dressing change daily right heel. Will follow.
[2020-08-12 12:04] LABS: CREATININE 10.1 mg/dL (0.55-1.3)
[2020-08-12] MEDS: MIDODRINE HCL 5 MG TABLET PO SCH ×3 (12:11→18:40)
[2020-08-12] MEDS: CEFTRIAXONE 1 GM in DEXTROSE 5%-WATER - 50 ML IVPB SCH (13:48)
[2020-08-12] MEDS: CARVEDILOL 25 MG TABLET (FP) PO SCH ×2 (13:49→22:31)
[2020-08-12] MEDS: APIXABAN 5 MG TABLET PO SCH ×2 (13:49→22:31)
[2020-08-12] MEDS: VITAMIN B COMP W-C 1 EA TABLET (NEPHRO-VITE) PO SCH (13:49)
[2020-08-12] MEDS: PANTOPRAZOLE 40 MG TABLET PO SCH (13:50)
[2020-08-12] MEDS: LISINOPRIL 10 MG TABLET PO SCH (13:50)
[2020-08-12] MEDS: COLLAGENASE CLOSTRIDIUM HIST. 30 GRAMS TUBE TP SCH (13:50)
--- NOTE | 2020-08-12 14:00 | PN ---
Progress Note, Physician History of Present Illness: remaining afebrile wbc has jumped up - Current Medication List Current Medications: Active Medications Acetaminophen (Tylenol -) 650 mg PO Q4H PRN PRN Reason: PAIN 1-3 Last Admin: 08/12/20 03:49 Dose: 650 mg Documented by: Apixaban (Eliquis -) 5 mg PO BID [facility] Last Admin: 08/12/20 13:49 Dose: 5 mg Documented by: Atorvastatin Calcium (Lipitor -) 40 mg PO HS [facility] Last Admin: 08/11/20 21:42 Dose: 40 mg Documented by: Carvedilol (Coreg -) 25 mg PO BID [facility] Last Admin: 08/12/20 13:49 Dose: 25 mg Documented by: Collagenase (Santyl -) 1 applic TP DAILY [facility]; Protocol Last Admin: 08/12/20 13:50 Dose: 1 applic Documented by: Guaifenesin (Robitussin -) 5 ml PO Q6H PRN PRN Reason: COUGH Last Admin: 08/11/20 12:52 Dose: 5 ml Documented by: Ceftriaxone Sodium 1 gm/ (Dextrose) 50 mls @ 100 mls/hr IVPB DAILY [facility]; Protocol Last Admin: 08/12/20 13:48 Dose: 100 mls/hr Documented by: Sodium Chloride (Normal Saline -) 250 mls @ 3,000 mls/hr IV PRN PRN PRN Reason: Hypotension during Dialysis Stop: 08/13/20 09:59 Sodium Chloride (Normal Saline -) 250 mls @ 3,000 mls/hr IV PRN PRN PRN Reason: Hypotension during Dialysis Stop: 08/13/20 11:39 Insulin Aspart (Novolog Vial Sliding Scale -) 1 vial SQ ACHS [facility]; Protocol Last Admin: 08/12/20 12:12 Dose: 4 units Documented by: Lisinopril (Prinivil) 10 mg PO DAILY [facility] Last Admin: 08/12/20 13:50 Dose: Not Given Documented by: Midodrine (Proamatine -) 5 mg PO TID-MID [facility] Last Admin: 08/12/20 12:11 Dose: 5 mg Documented by: Multivit/Ca Carb/B Cmplx/FA/Prenat (Nephro-Keith -) 1 tablet PO DAILY [facility] Last Admin: 08/12/20 13:49 Dose: 1 tablet Documented by: Pantoprazole Sodium (Protonix -) 40 mg PO DAILY [facility] Last Admin: 08/12/20 13:50 Dose: 40 mg Documented by: Sevelamer Carbonate (Renvela -) 2,400 mg PO TIDCM [facility] Last Admin: 08/12/20 13:51 Dose: 2,400 mg Documented by: - Objective Vital Signs: Vital Signs Temperature 98.8 F 08/12/20 10:10 Pulse Rate 123 H 08/12/20 12:15 Respiratory Rate 18 08/12/20 12:15 Blood Pressure 92/56 L 08/12/20 12:15 O2 Sat by Pulse Oximetry (%) 96 08/12/20 09:39 Constitutional: Yes: No Distress, Calm Cardiovascular: Yes: S1, S2 Respiratory: Yes: Regular, CTA Bilaterally Gastrointestinal: Yes: Normal Bowel Sounds, Soft Musculoskeletal: Yes: WNL Extremities: Yes: WNL Neurological: Yes: Alert, Oriented Psychiatric: Yes: Alert, Oriented Labs: CBC, BMP 08/12/20 10:15 08/12/20 10:15 INR, PTT INR 1.13 (0.83-1.09) H 07/31/20 21:10 Assessment/Plan Problem List - Problems (1) Fever Code(s): R50.9 - FEVER, UNSPECIFIED (2) Near syncope Code(s): R55 - SYNCOPE AND COLLAPSE (3) ESRD (end stage renal disease) Code(s): N18.6 - END STAGE RENAL DISEASE (4) Atrial fibrillation Code(s): I48.91 - UNSPECIFIED ATRIAL FIBRILLATION (5) Diabetes Code(s): E11.9 - TYPE 2 DIABETES MELLITUS WITHOUT COMPLICATIONS Qualifiers: Diabetes mellitus long goods drier insulin use: unspecified long goods drier insulin use status Diabetes mellitus complication status: with circulatory complication (6) Foot ulcer due to secondary DM Code(s): E13.621 - OTHER SPECIFIED DIABETES MELLITUS WITH FOOT ULCER; L97.509 - NON-PRESSURE CHRONIC ULCER OTH PRT UNSP FOOT W UNSP SEVERITY (7) HTN (hypertension) Code(s): I10 - ESSENTIAL (PRIMARY) HYPERTENSION (8) HLD (hyperlipidemia) Code(s): E78.5 - HYPERLIPIDEMIA, UNSPECIFIED plan continue abx await for all results repeat xray rest as per the team
[2020-08-12] MEDS ORDERED: LISINOPRIL 5 MG TABLET PO ONE (14:16)
[2020-08-12] MEDS: ATORVASTATIN CA 40 MG TABLET (FP) PO SCH (22:31)
--- NOTE | 2020-08-12 23:06 | PN ---
Progress Note, Physician History of Present Illness: Encourage OOB to chair - Current Medication List Current Medications: Active Medications Acetaminophen (Tylenol -) 650 mg PO Q4H PRN PRN Reason: PAIN 1-3 Last Admin: 08/12/20 03:49 Dose: 650 mg Documented by: Apixaban (Eliquis -) 5 mg PO BID [facility] Last Admin: 08/12/20 22:31 Dose: 5 mg Documented by: Atorvastatin Calcium (Lipitor -) 40 mg PO HS [facility] Last Admin: 08/12/20 22:31 Dose: 40 mg Documented by: Carvedilol (Coreg -) 25 mg PO BID [facility] Last Admin: 08/12/20 22:31 Dose: 25 mg Documented by: Collagenase (Santyl -) 1 applic TP DAILY [facility]; Protocol Last Admin: 08/12/20 13:50 Dose: 1 applic Documented by: Guaifenesin (Robitussin -) 5 ml PO Q6H PRN PRN Reason: COUGH Last Admin: 08/11/20 12:52 Dose: 5 ml Documented by: Ceftriaxone Sodium 1 gm/ (Dextrose) 50 mls @ 100 mls/hr IVPB DAILY [facility]; Protocol Last Admin: 08/12/20 13:48 Dose: 100 mls/hr Documented by: Sodium Chloride (Normal Saline -) 250 mls @ 3,000 mls/hr IV PRN PRN PRN Reason: Hypotension during Dialysis Stop: 08/13/20 09:59 Sodium Chloride (Normal Saline -) 250 mls @ 3,000 mls/hr IV PRN PRN PRN Reason: Hypotension during Dialysis Stop: 08/13/20 11:39 Insulin Aspart (Novolog Vial Sliding Scale -) 1 vial SQ ACHS [facility]; Protocol Last Admin: 08/12/20 22:15 Dose: 2 units Documented by: Lisinopril (Prinivil) 2.5 mg PO DAILY [facility] Midodrine (Proamatine -) 5 mg PO TID-MID [facility] Last Admin: 08/12/20 18:40 Dose: 5 mg Documented by: Multivit/Ca Carb/B Cmplx/FA/Prenat (Nephro-Keith -) 1 tablet PO DAILY [facility] Last Admin: 08/12/20 13:49 Dose: 1 tablet Documented by: Pantoprazole Sodium (Protonix -) 40 mg PO DAILY [facility] Last Admin: 08/12/20 13:50 Dose: 40 mg Documented by: Sevelamer Carbonate (Renvela -) 2,400 mg PO TIDCM [facility] Last Admin: 08/12/20 17:39 Dose: 2,400 mg Documented by: - Objective Vital Signs: Vital Signs Temperature 98.1 F 08/12/20 18:00 Pulse Rate 128 H 08/12/20 18:00 Respiratory Rate 18 08/12/20 18:00 Blood Pressure 84/62 L 08/12/20 18:00 O2 Sat by Pulse Oximetry (%) 96 08/12/20 18:00 Neck: Yes: WNL, Supple Cardiovascular: Yes: WNL, Regular Rate and Rhythm Respiratory: Yes: Diminished Gastrointestinal: Yes: WNL, Normal Bowel Sounds, Soft, Abdomen, Obese Labs: CBC, BMP 08/12/20 10:15 08/12/20 10:15 INR, PTT INR 1.13 (0.83-1.09) H 07/31/20 21:10 Problem List - Problems (1) Fever Assessment/Plan: ?pneumonia CT scan chest showed ribs fx's and pleural effusion w/ ? underlying infiltrate Cont ceftriaxone/vanco BC/urine culture WBC slightly elevated Pt afebrile Code(s): R50.9 - FEVER, UNSPECIFIED (2) Near syncope Assessment/Plan: Due to unsteady gait Due to rib fracture Pt may need STR placement Code(s): R55 - SYNCOPE AND COLLAPSE (3) ESRD (end stage renal disease) Assessment/Plan: Pt on dialysis As per renal Code(s): N18.6 - END STAGE RENAL DISEASE (4) Atrial fibrillation Assessment/Plan: Heart rate controlled Cont eliquis/metoprolol Code(s): I48.91 - UNSPECIFIED ATRIAL FIBRILLATION (5) Diabetes Assessment/Plan: Cont sliding scale w/ coverage Code(s): E11.9 - TYPE 2 DIABETES MELLITUS WITHOUT COMPLICATIONS Qualifiers: Diabetes mellitus 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
[2020-08-13] MEDS: ACETAMINOPHEN 325 MG TABLET (FP) PO PRN (01:35)
[2020-08-13] MEDS: INSULIN SLIDING SCALE (NOVOLOG) 1 VIAL SQ SCH ×4 (06:18→21:42)
[2020-08-13 07:28] LABS: BASO % 0.3 % (0-2.0); EOS % 0.3 % (0-4.5); HEMATOCRIT 31.2 % (35.4-49); HEMOGLOBIN 10.1 GM/dL (11.7-16.9); LYMPH % 5.6 % (8-40); MCH 27.6 pg (25.7-33.7); MCHC 32.3 g/dl (32.0-35.9); MEAN CELL VOLUME 85.3 fl (80-96); MEAN PLT VOLUME 10.9 fl (7.5-11.1); MONO % 9.4 % (3.8-10.2); NEUT % 84.4 % (42.8-82.8); PLATELET COUNT 142 K/MM3 (134-434); RBC 3.66 M/mm3 (4.00-5.60); RDW 15.4 % (11.9-15.9); WHITE BLOOD COUNT 13.5 K/mm3 (4.0-10.0)
[2020-08-13 07:58] LABS: ALBUMIN 2.2 g/dl (3.4-5.0); BILIRUBIN,TOTAL 1.9 mg/dL (0.2-1); CALCIUM 9.2 mg/dL (8.5-10.1); CREATININE 6.7 mg/dL (0.55-1.3); MAGNESIUM 2.2 mg/dL (1.8-2.4); PHOSPHOROUS 3.2 mg/dL (2.5-4.9); POTASSIUM 3.5 mmol/L (3.5-5.1); TOT PROT 6.1 g/dl (6.4-8.2)
[2020-08-13] MEDS ORDERED: DEXTROSE 5%-WATER - 50 ML IVPB ONE (09:48)
[2020-08-13] MEDS ORDERED: cefTRIAXone SODIUM 1 GM VIAL ONE (09:48)
[2020-08-13] MEDS: SEVELAMER CARBONATE 800 MG TAB (FP) PO SCH ×3 (10:04→17:33)
[2020-08-13] MEDS: MIDODRINE HCL 5 MG TABLET PO SCH ×3 (10:04→17:54)
[2020-08-13] MEDS: APIXABAN 5 MG TABLET PO SCH ×2 (10:04→21:41)
[2020-08-13] MEDS: CARVEDILOL 25 MG TABLET (FP) PO SCH ×2 (10:04→21:41)
[2020-08-13] MEDS: LISINOPRIL 5 MG TABLET PO SCH (10:04)
[2020-08-13] MEDS: PANTOPRAZOLE 40 MG TABLET PO SCH (10:04)
[2020-08-13] MEDS: VITAMIN B COMP W-C 1 EA TABLET (NEPHRO-VITE) PO SCH (10:05)
[2020-08-13] MEDS: COLLAGENASE CLOSTRIDIUM HIST. 30 GRAMS TUBE TP SCH (10:05)
[2020-08-13] MEDS: CEFTRIAXONE 1 GM in DEXTROSE 5%-WATER - 50 ML IVPB SCH (10:05)
--- NOTE | 2020-08-13 11:57 | PN ---
Progress Note, Physician History of Present Illness: Seen and examined at the bedside awake and alert sitting in a chair BP is improved with midodrine no cp, sob, fever, chills S/p dialysis yesterday with 0.5L UF - Current Medication List Current Medications: Active Medications Acetaminophen (Tylenol -) 650 mg PO Q4H PRN PRN Reason: PAIN 1-3 Last Admin: 08/13/20 01:35 Dose: 650 mg Documented by: Amino Acids (Prosource No Carb Liquid Pkt) 30 ml PO 0800,1200,1730 [facility] Apixaban (Eliquis -) 5 mg PO BID [facility] Last Admin: 08/13/20 10:04 Dose: 5 mg Documented by: Atorvastatin Calcium (Lipitor -) 40 mg PO HS [facility] Last Admin: 08/12/20 22:31 Dose: 40 mg Documented by: Carvedilol (Coreg -) 25 mg PO BID [facility] Last Admin: 08/13/20 10:04 Dose: 25 mg Documented by: Collagenase (Santyl -) 1 applic TP DAILY [facility]; Protocol Last Admin: 08/13/20 10:05 Dose: 1 applic Documented by: Guaifenesin (Robitussin -) 5 ml PO Q6H PRN PRN Reason: COUGH Last Admin: 08/11/20 12:52 Dose: 5 ml Documented by: Ceftriaxone Sodium 1 gm/ (Dextrose) 50 mls @ 100 mls/hr IVPB DAILY [facility]; Protocol Last Admin: 08/13/20 10:05 Dose: 100 mls/hr Documented by: Insulin Aspart (Novolog Vial Sliding Scale -) 1 vial SQ ACHS [facility]; Protocol Last Admin: 08/13/20 11:31 Dose: 4 units Documented by: Lisinopril (Prinivil) 2.5 mg PO DAILY [facility] Last Admin: 08/13/20 10:04 Dose: 2.5 mg Documented by: Midodrine (Proamatine -) 5 mg PO TID-MID [facility] Last Admin: 08/13/20 10:04 Dose: 5 mg Documented by: Multivit/Ca Carb/B Cmplx/FA/Prenat (Nephro-Keith -) 1 tablet PO DAILY [facility] Last Admin: 08/13/20 10:05 Dose: 1 tablet Documented by: Pantoprazole Sodium (Protonix -) 40 mg PO DAILY [facility] Last Admin: 08/13/20 10:04 Dose: 40 mg Documented by: Sevelamer Carbonate (Renvela -) 2,400 mg PO TIDCM [facility] Last Admin: 08/13/20 10:04 Dose: 2,400 mg Documented by: - Objective Vital Signs: Vital Signs Temperature 98.1 F 08/13/20 10:00 Pulse Rate 107 H 08/13/20 10:00 Respiratory Rate 18 08/13/20 10:00 Blood Pressure 136/65 08/13/20 10:00 O2 Sat by Pulse Oximetry (%) 96 08/13/20 10:00 Constitutional: Yes: No Distress, Calm HENT: Yes: Atraumatic Neck: Yes: Supple Cardiovascular: Yes: Regular Rate and Rhythm Respiratory: Yes: Regular Gastrointestinal: Yes: Soft Extremities: No: Cold, Cool, Cyanosis Edema: No Neurological: Yes: Alert, Oriented Labs: CBC, BMP 08/13/20 06:34 08/13/20 06:34 INR, PTT INR 1.13 (0.83-1.09) H 07/31/20 21:10 Assessment/Plan 64 year hold male with history of ESRD on HD (MWF), PVD, DM, atrial fibrillation on Eliquis who presented from home with weakness and an inability to ambulate. 1. Generalized weakness 2. ESRD on HD 3. Recent syncope 4. DM 5. Hypertension 6. Renal Osteodystrophy 7. PVD 8. Atrial fibrillation 9. CKD related Anemia 10. Hyponatremia in setting of renal insufficiency 11. Fever Next dialysis planned for tomorrow Continue midodrine TID Antibiotics per ID admission blood cultures negative, blood cutlures from last week negative hold antihypertensives for now. Continue Phos binder with meals. Vascular follow up for lower extremity wound Thank you Meet Pedro DO
[2020-08-13] MEDS: AMINO ACIDS/PROTEIN HYDROLYS 30 ML LIQUID.PKT PO SCH ×2 (13:20→17:34)
--- NOTE | 2020-08-13 13:40 | PN ---
Progress Note, Physician History of Present Illness: stable no new issues wbc marginally down - Current Medication List Current Medications: Active Medications Acetaminophen (Tylenol -) 650 mg PO Q4H PRN PRN Reason: PAIN 1-3 Last Admin: 08/13/20 01:35 Dose: 650 mg Documented by: Amino Acids (Prosource No Carb Liquid Pkt) 30 ml PO 0800,1200,1730 [facility] Last Admin: 08/13/20 13:20 Dose: 30 ml Documented by: Apixaban (Eliquis -) 5 mg PO BID [facility] Last Admin: 08/13/20 10:04 Dose: 5 mg Documented by: Atorvastatin Calcium (Lipitor -) 40 mg PO HS [facility] Last Admin: 08/12/20 22:31 Dose: 40 mg Documented by: Carvedilol (Coreg -) 25 mg PO BID [facility] Last Admin: 08/13/20 10:04 Dose: 25 mg Documented by: Collagenase (Santyl -) 1 applic TP DAILY [facility]; Protocol Last Admin: 08/13/20 10:05 Dose: 1 applic Documented by: Epoetin Lenny (Procrit -) 4,000 unit IVPUSH ONCE ONE Stop: 08/14/20 08:01 Guaifenesin (Robitussin -) 5 ml PO Q6H PRN PRN Reason: COUGH Last Admin: 08/11/20 12:52 Dose: 5 ml Documented by: Ceftriaxone Sodium 1 gm/ (Dextrose) 50 mls @ 100 mls/hr IVPB DAILY [facility]; Pro tocol Last Admin: 08/13/20 10:05 Dose: 100 mls/hr Documented by: Sodium Chloride (Normal Saline -) 250 mls @ 3,000 mls/hr IV PRN PRN PRN Reason: Hypotension during Dialysis Stop: 08/14/20 11:57 Insulin Aspart (Novolog Vial Sliding Scale -) 1 vial SQ ACHS [facility]; Protocol Last Admin: 08/13/20 11:31 Dose: 4 units Documented by: Lisinopril (Prinivil) 2.5 mg PO DAILY [facility] Last Admin: 08/13/20 10:04 Dose: 2.5 mg Documented by: Midodrine (Proamatine -) 5 mg PO TID-MID [facility] Last Admin: 08/13/20 10:04 Dose: 5 mg Documented by: Multivit/Ca Carb/B Cmplx/FA/Prenat (Nephro-Keith -) 1 tablet PO DAILY [facility] Last Admin: 08/13/20 10:05 Dose: 1 tablet Documented by: Pantoprazole Sodium (Protonix -) 40 mg PO DAILY [facility] Last Admin: 08/13/20 10:04 Dose: 40 mg Documented by: Sevelamer Carbonate (Renvela -) 2,400 mg PO TIDCM [facility] Last Admin: 08/13/20 13:19 Dose: 2,400 mg Documented by: - Objective Vital Signs: Vital Signs Temperature 98.1 F 08/13/20 10:00 Pulse Rate 107 H 08/13/20 10:00 Respiratory Rate 18 08/13/20 10:00 Blood Pressure 136/65 08/13/20 10:00 O2 Sat by Pulse Oximetry (%) 96 08/13/20 10:00 Constitutional: Yes: No Distress, Calm Cardiovascular: Yes: S1, S2 Respiratory: Yes: Regular, CTA Bilaterally Gastrointestinal: Yes: Normal Bowel Sounds, Soft Musculoskeletal: Yes: WNL Extremities: Yes: WNL Neurological: Yes: Alert, Oriented Psychiatric: Yes: Alert, Oriented Labs: CBC, BMP 08/13/20 06:34 08/13/20 06:34 INR, PTT INR 1.13 (0.83-1.09) H 07/31/20 21:10 Assessment/Plan Problem List - Problems (1) Fever Code(s): R50.9 - FEVER, UNSPECIFIED (2) Near syncope Code(s): R55 - SYNCOPE AND COLLAPSE (3) ESRD (end stage renal disease) Code(s): N18.6 - END STAGE RENAL DISEASE (4) Atrial fibrillation Code(s): I48.91 - UNSPECIFIED ATRIAL FIBRILLATION (5) Diabetes Code(s): E11.9 - TYPE 2 DIABETES MELLITUS WITHOUT COMPLICATIONS Qualifiers: Diabetes mellitus terminal manager insulin use: unspecified shelter insulin use status Diabetes mellitus complication status: with circulatory complication (6) Foot ulcer due to secondary DM Code(s): E13.621 - OTHER SPECIFIED DIABETES MELLITUS WITH FOOT ULCER; L97.509 - NON-PRESSURE CHRONIC ULCER OTH PRT UNSP FOOT W UNSP SEVERITY (7) HTN (hypertension) Code(s): I10 - ESSENTIAL (PRIMARY) HYPERTENSION (8) HLD (hyperlipidemia) Code(s): E78.5 - HYPERLIPIDEMIA, UNSPECIFIED plan continue abx rest as per the team monitor wbc physio
[2020-08-13] MEDS ORDERED: BANATROL PLUS POWDER PACKET PO SCH ×2 (14:00)
--- NOTE | 2020-08-13 16:07 | PN ---
Progress Note, Physician History of Present Illness: feeling better - Current Medication List Current Medications: Active Medications Acetaminophen (Tylenol -) 650 mg PO Q4H PRN PRN Reason: PAIN 1-3 Last Admin: 08/13/20 01:35 Dose: 650 mg Documented by: Amino Acids (Prosource No Carb Liquid Pkt) 30 ml PO 0800,1200,1730 [facility] Last Admin: 08/13/20 13:20 Dose: 30 ml Documented by: Apixaban (Eliquis -) 5 mg PO BID [facility] Last Admin: 08/13/20 10:04 Dose: 5 mg Documented by: Atorvastatin Calcium (Lipitor -) 40 mg PO HS [facility] Last Admin: 08/12/20 22:31 Dose: 40 mg Documented by: Carvedilol (Coreg -) 25 mg PO BID [facility] Last Admin: 08/13/20 10:04 Dose: 25 mg Documented by: Collagenase (Santyl -) 1 applic TP DAILY [facility]; Protocol Last Admin: 08/13/20 10:05 Dose: 1 applic Documented by: Epoetin Lenny (Procrit -) 4,000 unit IVPUSH ONCE ONE Stop: 08/14/20 08:01 Guaifenesin (Robitussin -) 5 ml PO Q6H PRN PRN Reason: COUGH Last Admin: 08/11/20 12:52 Dose: 5 ml Documented by: Ceftriaxone Sodium 1 gm/ (Dextrose) 50 mls @ 100 mls/hr IVPB DAILY [facility]; Protocol Last Admin: 08/13/20 10:05 Dose: 100 mls/hr Documented by: Sodium Chloride (Normal Saline -) 250 mls @ 3,000 mls/hr IV PRN PRN PRN Reason: Hypotension during Dialysis Stop: 08/14/20 11:57 Insulin Aspart (Novolog Vial Sliding Scale -) 1 vial SQ ACHS [facility]; Protocol Last Admin: 08/13/20 11:31 Dose: 4 units Documented by: Lisinopril (Prinivil) 2.5 mg PO DAILY [facility] Last Admin: 08/13/20 10:04 Dose: 2.5 mg Documented by: Midodrine (Proamatine -) 5 mg PO TID-MID [facility] Last Admin: 08/13/20 14:09 Dose: 5 mg Documented by: Multivit/Ca Carb/B Cmplx/FA/Prenat (Nephro-Keith -) 1 tablet PO DAILY [facility] Last Admin: 08/13/20 10:05 Dose: 1 tablet Documented by: Pantoprazole Sodium (Protonix -) 40 mg PO DAILY [facility] Last Admin: 08/13/20 10:04 Dose: 40 mg Documented by: Sevelamer Carbonate (Renvela -) 2,400 mg PO TIDCM [facility] Last Admin: 08/13/20 13:19 Dose: 2,400 mg Documented by: - Objective Vital Signs: Vital Signs Temperature 98.0 F 08/13/20 14:00 Pulse Rate 112 H 08/13/20 14:00 Respiratory Rate 18 08/13/20 14:00 Blood Pressure 95/70 08/13/20 14:00 O2 Sat by Pulse Oximetry (%) 96 08/13/20 10:00 Constitutional: Yes: No Distress HENT: Yes: Atraumatic Neck: Yes: Supple Cardiovascular: Yes: Regular Rate and Rhythm Respiratory: Yes: CTA Bilaterally Gastrointestinal: Yes: Normal Bowel Sounds Extremities: Yes: WNL Edema: No Peripheral Pulses WNL: Yes Neurological: Yes: Alert, Oriented Labs: CBC, BMP 08/13/20 06:34 08/13/20 06:34 INR, PTT INR 1.13 (0.83-1.09) H 07/31/20 21:10 Problem List - Problems (1) Near syncope Assessment/Plan: STABLE Code(s): R55 - SYNCOPE AND COLLAPSE (2) Atrial fibrillation Assessment/Plan: on meds Ac Code(s): I48.91 - UNSPECIFIED ATRIAL FIBRILLATION (3) Diabetes Assessment/Plan: sliding scale insulin Code(s): E11.9 - TYPE 2 DIABETES MELLITUS WITHOUT COMPLICATIONS Qualifiers: Diabetes mellitus intermodal truck driver insulin use: unspecified intermodal truck driver insulin use [facility] Diabetes mellitus complication status: with circulatory complication (4) ESRD (end stage renal disease) Assessment/Plan: renal consult for hd Code(s): N18.6 - END STAGE RENAL DISEASE (5) HLD (hyperlipidemia) Assessment/Plan: on meds Code(s): E78.5 - HYPERLIPIDEMIA, UNSPECIFIED (6) HTN (hypertension) Assessment/Plan: monitor on meds Code(s): I10 - ESSENTIAL (PRIMARY) HYPERTENSION (7) Rib fractures Assessment/Plan: prn pain meds Code(s): S22.39XA - FRACTURE OF ONE RIB, UNSP SIDE, INIT FOR CLOS FX (8) ESRD (end stage renal disease) Assessment/Plan: on hd Code(s): N18.6 - END STAGE RENAL DISEASE (9) Fever Assessment/Plan: bcx NEGATIVE Code(s): R50.9 - FEVER, UNSPECIFIED Assessment/Plan covering fo dr freeman today
[2020-08-13] MEDS: ATORVASTATIN CA 40 MG TABLET (FP) PO SCH (21:42)
--- NOTE | 2020-08-13 23:31 | PN ---
Progress Note, Physician Chief Complaint: Pt A&Ox3; no complaints. History of Present Illness: Mr. Mcfadden is a 64 yr old man with PMH IDDM, ESRD (HD MWF), AF on Eliquis, PSVT, HTN, HLD, PAD (s/p right toe amputation), s/p treatment for left chest abscess 12/2019; mild ascending thoracic aneurysm (followed q 3-6 months by private plater helper), obesity; ?alcohol, now admitted for persistent weakness. Patient had a fall five days ago; at [facility], CT scan found contiguous right rib fractures. He was transferred to [facility] and admitted for 5 days. He had physical therapy today where they successfully walked him 20 steps. He refused rehab offer and was sent home. At home, he almost fell, but his and son caught him. He denies new onset weakness, numbness, tingling, cp/sob, f/c, n/v, abdominal pain. Pt is a [employer]. Last hemodialysis (HD) yesterday. PMHX: as in HPI PSHX: toe amputations. Meds: on eliquis. Allergies: pork containing products. Tob: yes Etoh: yes Rec drugs: no PCP: Jameel Jauregui Cardiology: Dr Jayne Odom Renal Doctor: Elizabet Huntley - Current Medication List Current Medications: Active Medications Acetaminophen (Tylenol -) 650 mg PO Q4H PRN PRN Reason: PAIN 1-3 Last Admin: 08/13/20 01:35 Dose: 650 mg Documented by: Amino Acids (Prosource No Carb Liquid Pkt) 30 ml PO 0800,1200,1730 [facility] Last Admin: 08/13/20 17:34 Dose: 30 ml Documented by: Apixaban (Eliquis -) 5 mg PO BID [facility] Last Admin: 08/13/20 21:41 Dose: 5 mg Documented by: Atorvastatin Calcium (Lipitor -) 40 mg PO HS [facility] Last Admin: 08/13/20 21:42 Dose: 40 mg Documented by: Carvedilol (Coreg -) 25 mg PO BID [facility] Last Admin: 08/13/20 21:41 Dose: 25 mg Documented by: Collagenase (Santyl -) 1 applic TP DAILY [facility]; Protocol Last Admin: 08/13/20 10:05 Dose: 1 applic Documented by: Epoetin Lenny (Procrit -) 4,000 unit IVPUSH ONCE ONE Stop: 08/14/20 08:01 Guaifenesin (Robitussin -) 5 ml PO Q6H PRN PRN Reason: COUGH Last Admin: 08/11/20 12:52 Dose: 5 ml Documented by: Ceftriaxone Sodium 1 gm/ (Dextrose) 50 mls @ 100 mls/hr IVPB DAILY [facility]; Protocol Last Admin: 08/13/20 10:05 Dose: 100 mls/hr Documented by: Sodium Chloride (Normal Saline -) 250 mls @ 3,000 mls/hr IV PRN PRN PRN Reason: Hypotension during Dialysis Stop: 08/14/20 11:57 Insulin Aspart (Novolog Vial Sliding Scale -) 1 vial SQ ACHS [facility]; Protocol Last Admin: 08/13/20 21:42 Dose: 2 units Documented by: Lisinopril (Prinivil) 2.5 mg PO DAILY [facility] Last Admin: 08/13/20 10:04 Dose: 2.5 mg Documented by: Midodrine (Proamatine -) 5 mg PO TID-MID [facility] Last Admin: 08/13/20 17:54 Dose: 5 mg Documented by: Multivit/Ca Carb/B Cmplx/FA/Prenat (Nephro-Keith -) 1 tablet PO DAILY [facility] Last Admin: 08/13/20 10:05 Dose: 1 tablet Documented by: Pantoprazole Sodium (Protonix -) 40 mg PO DAILY [facility] Last Admin: 08/13/20 10:04 Dose: 40 mg Documented by: Sevelamer Carbonate (Renvela -) 2,400 mg PO TIDCM [facility] Last Admin: 08/13/20 17:33 Dose: 2,400 mg Documented by: - Objective Vital Signs: Vital Signs Temperature 98.0 F 08/13/20 22:00 Pulse Rate 115 H 08/13/20 22:00 Respiratory Rate 20 08/13/20 22:00 Blood Pressure 111/60 08/13/20 22:00 O2 Sat by Pulse Oximetry (%) 92 L 08/13/20 22:00 Constitutional: Yes: Obese Eyes: Yes: WNL HENT: Yes: WNL Neck: Yes: WNL Cardiovascular: Yes: S1, S2 Respiratory: Yes: Regular Gastrointestinal: Yes: Soft, Abdomen, Obese ...Rectal Exam: Yes: Deferred Genitourinary: No: Anuria Musculoskeletal: Yes: Joint Stiffness, Muscle Weakness Extremities: Yes: Cool, Other (right martins wound patch dry) Edema: Yes Edema: LLE: Trace, RLE: Trace Peripheral Pulses WNL: Yes Integumentary: Yes: Other Wound/Incision: Yes: Dressing Dry and Intact Neurological: Yes: Alert, Oriented, Weakness Psychiatric: Yes: Other Labs: CBC, BMP 08/13/20 06:34 08/13/20 06:34 INR, PTT INR 1.13 (0.83-1.09) H 07/31/20 21:10 - ....Imaging Chest X-ray: Image Reviewed EKG: Image Reviewed Assessment/Plan Mr. Mcfadden is a 64 yr old man with PMH of ESRD (HD MWF), AF on carvedilol and Eliquis, HTN, DM, HLD (hypertriglyceridemia), PAD (s/p right toe amputation); s/p treatement for left chest abscess 12/2019, sleep apnea, mild thoracic ascending aortic aneurysm), alcoholism, obesity, BIBEMS from home for persistent weakness. He is admitted for near-syncope. Systolic CHF (mildly reduced LVEF; severe LAE on ECHO 12/2019). hyperprolactinemia, likely secondary to ESRD chronic right heel wound Rec: COVID negative. TNI < 0.02 x 3. EKG: AF Transient hypotension 08/05/20; lisinopril reduced now to 2.5 mg daily; on carvedilol 25 mg bid for HR and BP control. On apixaban for anticoagulation. On atorvastatin; LDL 52 mg/dL. BUN/Cr, electrolytes, daily weight, Is and Os. Rt heel wound care. Continue hemodialysis per key account representative. Discontinue telemetry.
[2020-08-14] MEDS: INSULIN SLIDING SCALE (NOVOLOG) 1 VIAL SQ SCH ×4 (06:14→21:31)
--- NOTE | 2020-08-14 07:52 | PN ---
Progress Note, Physician History of Present Illness: Mr. Mcfadden is a 64 yr old man with PMH IDDM, ESRD (HD MWF), AF on Eliquis, PSVT, HTN, HLD, PAD (s/p right toe amputation), s/p treatment for left chest abscess 12/2019; mild ascending thoracic aneurysm (followed q 3-6 months by private rate supervisor), obesity; ?alcohol, now admitted for persistent weakness. Patient had a fall five days ago; at [facility], CT scan found contiguous right rib fractures. He was transferred to [facility] and admitted for 5 days. He had physical therapy today where they successfully walked him 20 steps. He refused rehab offer and was sent home. At home, he almost fell, but his and son caught him. He denies new onset weakness, numbness, tingling, cp/sob, f/c, n/v, abdominal pain. Pt is a [employer]. Last hemodialysis (HD) yesterday. PMHX: as in HPI PSHX: toe amputations. Meds: on eliquis. Allergies: pork containing products. Tob: yes Etoh: yes Rec drugs: no PCP: Jameel Jauregui Cardiology: Dr Jayne Odom Renal Doctor: Elizabet Huntlye - Current Medication List Current Medications: Active Medications Acetaminophen (Tylenol -) 650 mg PO Q4H PRN PRN Reason: PAIN 1-3 Last Admin: 08/13/20 01:35 Dose: 650 mg Documented by: Amino Acids (Prosource No Carb Liquid Pkt) 30 ml PO 0800,1200,1730 [facility] Last Admin: 08/13/20 17:34 Dose: 30 ml Documented by: Apixaban (Eliquis -) 5 mg PO BID [facility] Last Admin: 08/13/20 21:41 Dose: 5 mg Documented by: Atorvastatin Calcium (Lipitor -) 40 mg PO HS [facility] Last Admin: 08/13/20 21:42 Dose: 40 mg Documented by: Carvedilol (Coreg -) 25 mg PO BID [facility] Last Admin: 08/13/20 21:41 Dose: 25 mg Documented by: Collagenase (Santyl -) 1 applic TP DAILY [facility]; Protocol Last Admin: 08/13/20 10:05 Dose: 1 applic Documented by: Epoetin Lenny (Procrit -) 4,000 unit IVPUSH ONCE ONE Stop: 08/14/20 08:01 Guaifenesin (Robitussin -) 5 ml PO Q6H PRN PRN Reason: COUGH Last Admin: 08/11/20 12:52 Dose: 5 ml Documented by: Ceftriaxone Sodium 1 gm/ (Dextrose) 50 mls @ 100 mls/hr IVPB DAILY [facility]; Protocol Last Admin: 08/13/20 10:05 Dose: 100 mls/hr Documented by: Sodium Chloride (Normal Saline -) 250 mls @ 3,000 mls/hr IV PRN PRN PRN Reason: Hypotension during Dialysis Stop: 08/14/20 11:57 Insulin Aspart (Novolog Vial Sliding Scale -) 1 vial SQ ACHS [facility]; Protocol Last Admin: 08/14/20 06:14 Dose: Not Given Documented by: Lisinopril (Prinivil) 2.5 mg PO DAILY [facility] Last Admin: 08/13/20 10:04 Dose: 2.5 mg Documented by: Midodrine (Proamatine -) 5 mg PO TID-MID [facility] Last Admin: 08/13/20 17:54 Dose: 5 mg Documented by: Multivit/Ca Carb/B Cmplx/FA/Prenat (Nephro-Keith -) 1 tablet PO DAILY [facility] Last Admin: 08/13/20 10:05 Dose: 1 tablet Documented by: Pantoprazole Sodium (Protonix -) 40 mg PO DAILY [facility] Last Admin: 08/13/20 10:04 Dose: 40 mg Documented by: Sevelamer Carbonate (Renvela -) 2,400 mg PO TIDCM [facility] Last Admin: 08/13/20 17:33 Dose: 2,400 mg Documented by: - Objective Vital Signs: Vital Signs Temperature 97.8 F 08/14/20 06:00 Pulse Rate 108 H 08/14/20 06:00 Respiratory Rate 20 08/14/20 06:00 Blood Pressure 98/70 08/14/20 06:00 O2 Sat by Pulse Oximetry (%) 94 L 08/14/20 06:00 Eyes: Yes: WNL, Conjunctiva Clear, EOM Intact HENT: Yes: WNL, Atraumatic, Normocephalic Neck: Yes: WNL, Supple, Trachea Midline Cardiovascular: Yes: WNL, Regular Rate and Rhythm Respiratory: Yes: WNL, Regular, CTA Bilaterally Gastrointestinal: Yes: WNL, Normal Bowel Sounds Genitourinary: Yes: WNL Musculoskeletal: Yes: WNL Extremities: Yes: WNL Edema: No Integumentary: Yes: WNL Neurological: Yes: WNL, Alert, Oriented ...Motor Strength: WNL Psychiatric: Yes: WNL Labs: CBC, BMP 08/13/20 06:34 08/13/20 06:34 INR, PTT INR 1.13 (0.83-1.09) H 07/31/20 21:10 Assessment/Plan Mr. Mcfadden is a 64 yr old man with PMH of ESRD (HD MWF), AF on carvedilol and Eliquis, HTN, DM, HLD (hypertriglyceridemia), PAD (s/p right toe amputation); s/p treatement for left chest abscess 12/2019, sleep apnea, mild thoracic ascending aortic aneurysm), alcoholism, obesity, BIBEMS from home for persistent weakness. He is admitted for near-syncope. Systolic CHF (mildly reduced LVEF; severe LAE on ECHO 12/2019). hyperprolactinemia, likely secondary to ESRD chronic right heel wound Rec: COVID negative. TNI < 0.02 x 3. EKG: AF Transient hypotension 08/05/20; lisinopril reduced now to 2.5 mg daily; on carvedilol 25 mg bid for HR and BP control. On apixaban for anticoagulation. On atorvastatin; LDL 52 mg/dL. BUN/Cr, electrolytes, daily weight, Is and Os. Rt heel wound care. Continue hemodialysis per tax director.
[2020-08-14] MEDS: MIDODRINE HCL 5 MG TABLET PO SCH ×4 (08:07→17:02)
[2020-08-14] MEDS ORDERED: EPOETIN ALFA-EPBX 4,000 UNIT/ML VIAL IVPUSH ONE (09:00)
[2020-08-14] MEDS ORDERED: SODIUM CHLORIDE 250 ML IV PRN (09:00)
[2020-08-14] MEDS: AMINO ACIDS/PROTEIN HYDROLYS 30 ML LIQUID.PKT PO SCH ×3 (09:43→17:03)
[2020-08-14] MEDS: SEVELAMER CARBONATE 800 MG TAB (FP) PO SCH ×3 (09:43→17:03)
[2020-08-14] MEDS: CARVEDILOL 25 MG TABLET (FP) PO SCH ×2 (09:43→21:31)
[2020-08-14] MEDS: LISINOPRIL 5 MG TABLET PO SCH (09:43)
[2020-08-14 10:35] LABS: HEMATOCRIT 31.4 % (35.4-49); HEMOGLOBIN 10.2 GM/dL (11.7-16.9); MCH 27.5 pg (25.7-33.7); MCHC 32.4 g/dl (32.0-35.9); MEAN CELL VOLUME 84.8 fl (80-96); PLATELET COUNT 173 K/MM3 (134-434); RDW 15.7 % (11.9-15.9); WHITE BLOOD COUNT 10.6 K/mm3 (4.0-10.0)
[2020-08-14] MEDS ORDERED: DEXTROSE 5%-WATER - 50 ML IVPB ONE (10:46)
[2020-08-14] MEDS ORDERED: cefTRIAXone SODIUM 1 GM VIAL ONE (10:46)
[2020-08-14] MEDS ORDERED: PT OWN MED DRAWER 7, Y5N ONE ×2 (10:51→13:24)
[2020-08-14 11:03] LABS: BLOOD UREA NITROGEN 51.4 mg/dL (7-18); CALCIUM 9.4 mg/dL (8.5-10.1); POTASSIUM 4.1 mmol/L (3.5-5.1)
[2020-08-14 11:21] LABS: CREATININE 7.9 mg/dL (0.55-1.3)
--- NOTE | 2020-08-14 12:03 | PN ---
Progress Note, Physician History of Present Illness: stable being dialysed - Current Medication List Current Medications: Active Medications Acetaminophen (Tylenol -) 650 mg PO Q4H PRN PRN Reason: PAIN 1-3 Last Admin: 08/13/20 01:35 Dose: 650 mg Documented by: Amino Acids (Prosource No Carb Liquid Pkt) 30 ml PO 0800,1200,1730 [facility] Last Admin: 08/14/20 09:43 Dose: Not Given Documented by: Apixaban (Eliquis -) 5 mg PO BID [facility] Last Admin: 08/13/20 21:41 Dose: 5 mg Documented by: Atorvastatin Calcium (Lipitor -) 40 mg PO HS [facility] Last Admin: 08/13/20 21:42 Dose: 40 mg Documented by: Carvedilol (Coreg -) 25 mg PO BID [facility] Last Admin: 08/14/20 09:43 Dose: Not Given Documented by: Collagenase (Santyl -) 1 applic TP DAILY [facility]; Protocol Last Admin: 08/13/20 10:05 Dose: 1 applic Documented by: Guaifenesin (Robitussin -) 5 ml PO Q6H PRN PRN Reason: COUGH Last Admin: 08/11/20 12:52 Dose: 5 ml Documented by: Ceftriaxone Sodium 1 gm/ (Dextrose) 50 mls @ 100 mls/hr IVPB DAILY [facility]; Protocol Last Admin: 08/13/20 10:05 Dose: 100 mls/hr Documented by: Insulin Aspart (Novolog Vial Sliding Scale -) 1 vial SQ ACHS [facility]; Protocol Last Admin: 08/14/20 06:14 Dose: Not Given Documented by: Lisinopril (Prinivil) 2.5 mg PO DAILY [facility] Last Admin: 08/14/20 09:43 Dose: Not Given Documented by: Midodrine (Proamatine -) 5 mg PO TID-MID [facility] Last Admin: 08/14/20 09:43 Dose: Not Given Documented by: Multivit/Ca Carb/B Cmplx/FA/Prenat (Nephro-Keith -) 1 tablet PO DAILY [facility] Last Admin: 08/13/20 10:05 Dose: 1 tablet Documented by: Pantoprazole Sodium (Protonix -) 40 mg PO DAILY [facility] Last Admin: 08/13/20 10:04 Dose: 40 mg Documented by: Sevelamer Carbonate (Renvela -) 2,400 mg PO TIDCM [facility] Last Admin: 08/14/20 09:43 Dose: Not Given Documented by: - Objective Vital Signs: Vital Signs Temperature 97.7 F 08/14/20 08:14 Pulse Rate 80 08/14/20 11:00 Respiratory Rate 18 08/14/20 11:00 Blood Pressure 90/57 L 08/14/20 11:00 O2 Sat by Pulse Oximetry (%) 98 08/14/20 08:14 Constitutional: Yes: No Distress, Calm Cardiovascular: Yes: S1, S2 Respiratory: Yes: Regular, CTA Bilaterally Gastrointestinal: Yes: Normal Bowel Sounds, Soft Musculoskeletal: Yes: WNL Extremities: Yes: WNL Neurological: Yes: Alert, Oriented Psychiatric: Yes: Alert, Oriented Labs: CBC, BMP 08/14/20 09:30 08/14/20 09:30 INR, PTT INR 1.13 (0.83-1.09) H 07/31/20 21:10 Assessment/Plan Problem List - Problems (1) Fever Code(s): R50.9 - FEVER, UNSPECIFIED (2) Near syncope Code(s): R55 - SYNCOPE AND COLLAPSE (3) ESRD (end stage renal disease) Code(s): N18.6 - END STAGE RENAL DISEASE (4) Atrial fibrillation Code(s): I48.91 - UNSPECIFIED ATRIAL FIBRILLATION (5) Diabetes Code(s): E11.9 - TYPE 2 DIABETES MELLITUS WITHOUT COMPLICATIONS Qualifiers: Diabetes mellitus shelter insulin use: unspecified shelter insulin use status Diabetes mellitus complication status: with circulatory complication (6) Foot ulcer due to secondary DM Code(s): E13.621 - OTHER SPECIFIED DIABETES MELLITUS WITH FOOT ULCER; L97.509 - NON-PRESSURE CHRONIC ULCER OTH PRT UNSP FOOT W UNSP SEVERITY (7) HTN (hypertension) Code(s): I10 - ESSENTIAL (PRIMARY) HYPERTENSION (8) HLD (hyperlipidemia) Code(s): E78.5 - HYPERLIPIDEMIA, UNSPECIFIED plan continue abx rest as per the team monitor [facility] physio will deescalate soon
--- NOTE | 2020-08-14 12:48 | PN ---
Progress Note, Physician History of Present Illness: Seen and examined at the bedside seen while on dialysis awake and alert BP in 90's systolic access functioning well no cp, sob, fever, chills goal UF is 1.5L if tolerated - Current Medication List Current Medications: Active Medications Acetaminophen (Tylenol -) 650 mg PO Q4H PRN PRN Reason: PAIN 1-3 Last Admin: 08/13/20 01:35 Dose: 650 mg Documented by: Amino Acids (Prosource No Carb Liquid Pkt) 30 ml PO 0800,1200,1730 [facility] Last Admin: 08/14/20 09:43 Dose: Not Given Documented by: Apixaban (Eliquis -) 5 mg PO BID [facility] Last Admin: 08/13/20 21:41 Dose: 5 mg Documented by: Atorvastatin Calcium (Lipitor -) 40 mg PO HS [facility] Last Admin: 08/13/20 21:42 Dose: 40 mg Documented by: Carvedilol (Coreg -) 25 mg PO BID [facility] Last Admin: 08/14/20 09:43 Dose: Not Given Documented by: Collagenase (Santyl -) 1 applic TP DAILY [facility]; Protocol Last Admin: 08/13/20 10:05 Dose: 1 applic Documented by: Guaifenesin (Robitussin -) 5 ml PO Q6H PRN PRN Reason: COUGH Last Admin: 08/11/20 12:52 Dose: 5 ml Documented by: Ceftriaxone Sodium 1 gm/ (Dextrose) 50 mls @ 100 mls/hr IVPB DAILY [facility]; Protocol Last Admin: 08/13/20 10:05 Dose: 100 mls/hr Documented by: Insulin Aspart (Novolog Vial Sliding Scale -) 1 vial SQ ACHS [facility]; Protocol Last Admin: 08/14/20 06:14 Dose: Not Given Documented by: Lisinopril (Prinivil) 2.5 mg PO DAILY [facility] Last Admin: 08/14/20 09:43 Dose: Not Given Documented by: Midodrine (Proamatine -) 5 mg PO TID-MID [facility] Last Admin: 08/14/20 09:43 Dose: Not Given Documented by: Multivit/Ca Carb/B Cmplx/FA/Prenat (Nephro-Keith -) 1 tablet PO DAILY [facility] Last Admin: 08/13/20 10:05 Dose: 1 tablet Documented by: Pantoprazole Sodium (Protonix -) 40 mg PO DAILY [facility] Last Admin: 08/13/20 10:04 Dose: 40 mg Documented by: Sevelamer Carbonate (Renvela -) 2,400 mg PO TIDCM [facility] Last Admin: 08/14/20 09:43 Dose: Not Given Documented by: - Objective Vital Signs: Vital Signs Temperature 97.7 F 08/14/20 08:14 Pulse Rate 80 08/14/20 11:00 Respiratory Rate 18 08/14/20 11:00 Blood Pressure 90/57 L 08/14/20 11:00 O2 Sat by Pulse Oximetry (%) 98 08/14/20 08:14 Constitutional: Yes: No Distress HENT: Yes: Atraumatic Neck: Yes: Supple Cardiovascular: Yes: Regular Rate and Rhythm Respiratory: Yes: Regular, CTA Bilaterally Gastrointestinal: Yes: Soft Extremities: No: Cyanosis Edema: No Neurological: Yes: Alert Labs: CBC, BMP 08/14/20 09:30 08/14/20 09:30 INR, PTT INR 1.13 (0.83-1.09) H 07/31/20 21:10 Assessment/Plan 64 year hold male with history of ESRD on HD (MWF), PVD, DM, atrial fibrillation on Eliquis who presented from home with weakness and an inability to ambulate. 1. Generalized weakness 2. ESRD on HD 3. Recent syncope 4. DM 5. Hypertension 6. Renal Osteodystrophy 7. PVD 8. Atrial fibrillation 9. CKD related Anemia 10. Hyponatremia in setting of renal insufficiency 11. Fever Tolerating dialysis with goal UF of 1-1.5L Continue midodrine TID to treat hypotension all culture negative thus far ? etiology of hypotension, consider checking repeat ECHO Antibiotics per ID Continue Phos binder with meals. Thank you Meet Pedro DO
--- NOTE | 2020-08-14 13:16 | PN ---
Progress Note, Physician Chief Complaint: fuv right heel. - Current Medication List Current Medications: Active Medications Acetaminophen (Tylenol -) 650 mg PO Q4H PRN PRN Reason: PAIN 1-3 Last Admin: 08/13/20 01:35 Dose: 650 mg Documented by: Amino Acids (Prosource No Carb Liquid Pkt) 30 ml PO 0800,1200,1730 [facility] Last Admin: 08/14/20 09:43 Dose: Not Given Documented by: Apixaban (Eliquis -) 5 mg PO BID [facility] Last Admin: 08/13/20 21:41 Dose: 5 mg Documented by: Atorvastatin Calcium (Lipitor -) 40 mg PO HS [facility] Last Admin: 08/13/20 21:42 Dose: 40 mg Documented by: Carvedilol (Coreg -) 25 mg PO BID [facility] Last Admin: 08/14/20 09:43 Dose: Not Given Documented by: Collagenase (Santyl -) 1 applic TP DAILY [facility]; Protocol Last Admin: 08/13/20 10:05 Dose: 1 applic Documented by: Guaifenesin (Robitussin -) 5 ml PO Q6H PRN PRN Reason: COUGH Last Admin: 08/11/20 12:52 Dose: 5 ml Documented by: Ceftriaxone Sodium 1 gm/ (Dextrose) 50 mls @ 100 mls/hr IVPB DAILY [facility]; Prot ocol Last Admin: 08/13/20 10:05 Dose: 100 mls/hr Documented by: Insulin Aspart (Novolog Vial Sliding Scale -) 1 vial SQ ACHS [facility]; Protocol Last Admin: 08/14/20 06:14 Dose: Not Given Documented by: Lisinopril (Prinivil) 2.5 mg PO DAILY [facility] Last Admin: 08/14/20 09:43 Dose: Not Given Documented by: Midodrine (Proamatine -) 5 mg PO TID-MID [facility] Last Admin: 08/14/20 09:43 Dose: Not Given Documented by: Multivit/Ca Carb/B Cmplx/FA/Prenat (Nephro-Keith -) 1 tablet PO DAILY [facility] Last Admin: 08/13/20 10:05 Dose: 1 tablet Documented by: Pantoprazole Sodium (Protonix -) 40 mg PO DAILY [facility] Last Admin: 08/13/20 10:04 Dose: 40 mg Documented by: Sevelamer Carbonate (Renvela -) 2,400 mg PO TIDCM [facility] Last Admin: 08/14/20 09:43 Dose: Not Given Documented by: - Objective Vital Signs: Vital Signs Temperature 97.7 F 08/14/20 08:14 Pulse Rate 86 08/14/20 12:45 Respiratory Rate 18 08/14/20 12:45 Blood Pressure 99/68 08/14/20 12:45 O2 Sat by Pulse Oximetry (%) 98 08/14/20 08:14 Wound/Incision: Yes: Other (+macerated wound right heel area,) Labs: CBC, BMP 08/14/20 09:30 08/14/20 09:30 INR, PTT INR 1.13 (0.83-1.09) H 07/31/20 21:10 Assessment/Plan om? pvd grade 2 wound Betadine dressing change daily. BREN Choi. Will follow.
[2020-08-14] MEDS: PANTOPRAZOLE 40 MG TABLET PO SCH (13:28)
[2020-08-14] MEDS: COLLAGENASE CLOSTRIDIUM HIST. 30 GRAMS TUBE TP SCH (13:28)
[2020-08-14] MEDS: APIXABAN 5 MG TABLET PO SCH ×2 (13:28→21:31)
[2020-08-14] MEDS: CEFTRIAXONE 1 GM in DEXTROSE 5%-WATER - 50 ML IVPB SCH (13:28)
[2020-08-14] MEDS: VITAMIN B COMP W-C 1 EA TABLET (NEPHRO-VITE) PO SCH (13:28)
[2020-08-14] MEDS: ACETAMINOPHEN 325 MG TABLET (FP) PO PRN (21:31)
[2020-08-14] MEDS: ATORVASTATIN CA 40 MG TABLET (FP) PO SCH (21:31)
--- NOTE | 2020-08-14 22:47 | PN ---
Progress Note, Physician History of Present Illness: No new complaints - Current Medication List Current Medications: Active Medications Acetaminophen (Tylenol -) 650 mg PO Q4H PRN PRN Reason: PAIN 1-3 Last Admin: 08/14/20 21:31 Dose: 650 mg Documented by: Amino Acids (Prosource No Carb Liquid Pkt) 30 ml PO 0800,1200,1730 [facility] Last Admin: 08/14/20 17:03 Dose: 30 ml Documented by: Apixaban (Eliquis -) 5 mg PO BID [facility] Last Admin: 08/14/20 21:31 Dose: 5 mg Documented by: Atorvastatin Calcium (Lipitor -) 40 mg PO HS [facility] Last Admin: 08/14/20 21:31 Dose: 40 mg Documented by: Carvedilol (Coreg -) 25 mg PO BID [facility] Last Admin: 08/14/20 21:31 Dose: 25 mg Documented by: Collagenase (Santyl -) 1 applic TP DAILY [facility]; Protocol Last Admin: 08/14/20 13:28 Dose: 1 applic Documented by: Guaifenesin (Robitussin -) 5 ml PO Q6H PRN PRN Reason: COUGH Last Admin: 08/11/20 12:52 Dose: 5 ml Documented by: Ceftriaxone Sodium 1 gm/ (Dextrose) 50 mls @ 100 mls/hr IVPB DAILY [facility]; P rotocol Last Admin: 08/14/20 13:28 Dose: 100 mls/hr Documented by: Insulin Aspart (Novolog Vial Sliding Scale -) 1 vial SQ ACHS [facility]; Protocol Last Admin: 08/14/20 21:31 Dose: Not Given Documented by: Lisinopril (Prinivil) 2.5 mg PO DAILY [facility] Last Admin: 08/14/20 09:43 Dose: Not Given Documented by: Midodrine (Proamatine -) 5 mg PO TID-MID [facility] Last Admin: 08/14/20 17:02 Dose: 5 mg Documented by: Multivit/Ca Carb/B Cmplx/FA/Prenat (Nephro-Keith -) 1 tablet PO DAILY [facility] Last Admin: 08/14/20 13:28 Dose: 1 tablet Documented by: Pantoprazole Sodium (Protonix -) 40 mg PO DAILY [facility] Last Admin: 08/14/20 13:28 Dose: 40 mg Documented by: Sevelamer Carbonate (Renvela -) 2,400 mg PO TIDCM [facility] Last Admin: 08/14/20 17:03 Dose: 2,400 mg Documented by: - Objective Vital Signs: Vital Signs Temperature 99.4 F 08/14/20 21:00 Pulse Rate 126 H 08/14/20 21:00 Respiratory Rate 16 08/14/20 21:00 Blood Pressure 114/54 L 08/14/20 21:00 O2 Sat by Pulse Oximetry (%) 95 08/14/20 21:00 Cardiovascular: Yes: WNL, Regular Rate and Rhythm Respiratory: Yes: WNL, Regular, CTA Bilaterally Gastrointestinal: Yes: WNL, Normal Bowel Sounds, Soft Labs: CBC, BMP 08/14/20 09:30 08/14/20 09:30 INR, PTT INR 1.13 (0.83-1.09) H 07/31/20 21:10 Problem List - Problems (1) Fever Assessment/Plan: ?pneumonia CT scan chest showed ribs fx's and pleural effusion w/ ? underlying infiltrate Cont ceftriaxone/vanco BC/urine culture WBC normal Pt afebrile Code(s): R50.9 - FEVER, UNSPECIFIED (2) Near syncope Assessment/Plan: Due to unsteady gait Due to rib fracture Pt may need STR placement Code(s): R55 - SYNCOPE AND COLLAPSE (3) ESRD (end stage renal disease) Assessment/Plan: Pt on dialysis As per renal Code(s): N18.6 - END STAGE RENAL DISEASE (4) Atrial fibrillation Assessment/Plan: Heart rate controlled Cont eliquis/metoprolol Code(s): I48.91 - UNSPECIFIED ATRIAL FIBRILLATION (5) Diabetes Assessment/Plan: Cont sliding scale w/ coverage Code(s): E11.9 - TYPE 2 DIABETES MELLITUS WITHOUT COMPLICATIONS Qualifiers: Diabetes mellitus long term care pharmacist insulin use: unspecified longterm insulin use status Diabetes mellitus complication status: with circulatory complication (6) Foot ulcer due to secondary DM Assessment/Plan: Vascular surgeon consult Code(s): E13.621 - OTHER SPECIFIED DIABETES MELLITUS WITH FOOT ULCER; L97.509 - NON-PRESSURE CHRONIC ULCER OTH PRT UNSP FOOT W UNSP SEVERITY (7) HTN (hypertension) Code(s): I10 - ESSENTIAL (PRIMARY) HYPERTENSION (8) HLD (hyperlipidemia) Code(s): E78.5 - HYPERLIPIDEMIA, UNSPECIFIED
[2020-08-15] MEDS: ACETAMINOPHEN 325 MG TABLET (FP) PO PRN (06:42)
[2020-08-15] MEDS: INSULIN SLIDING SCALE (NOVOLOG) 1 VIAL SQ SCH ×4 (06:43→21:46)
[2020-08-15] MEDS: AMINO ACIDS/PROTEIN HYDROLYS 30 ML LIQUID.PKT PO SCH ×3 (08:08→17:17)
[2020-08-15] MEDS: SEVELAMER CARBONATE 800 MG TAB (FP) PO SCH ×3 (08:08→17:25)
[2020-08-15] MEDS: CARVEDILOL 25 MG TABLET (FP) PO SCH (09:19)
[2020-08-15] MEDS: LISINOPRIL 5 MG TABLET PO SCH (09:19)
[2020-08-15] MEDS ORDERED: cefTRIAXone SODIUM 1 GM VIAL ONE (09:23)
[2020-08-15] MEDS ORDERED: DEXTROSE 5%-WATER - 50 ML IVPB ONE (09:23)
[2020-08-15] MEDS: VITAMIN B COMP W-C 1 EA TABLET (NEPHRO-VITE) PO SCH (09:32)
[2020-08-15] MEDS: CEFTRIAXONE 1 GM in DEXTROSE 5%-WATER - 50 ML IVPB SCH (09:32)
[2020-08-15] MEDS: COLLAGENASE CLOSTRIDIUM HIST. 30 GRAMS TUBE TP SCH (09:32)
[2020-08-15] MEDS: APIXABAN 5 MG TABLET PO SCH ×2 (09:32→21:46)
[2020-08-15] MEDS: MIDODRINE HCL 5 MG TABLET PO SCH ×3 (09:32→17:17)
[2020-08-15] MEDS: PANTOPRAZOLE 40 MG TABLET PO SCH (09:32)
--- NOTE | 2020-08-15 11:50 | PN ---
Progress Note, Physician Chief Complaint: Pt A&Ox3; c/o pain in anal region; excoriations noted, and treated. No chest pain. + Generalized weakness. History of Present Illness: Mr. Mcfadden is a 64 yr old man with PMH IDDM, ESRD (HD MWF), AF on Eliquis, PSVT, HTN, HLD, PAD (s/p right toe amputation), s/p treatment for left chest abscess 12/2019; mild ascending thoracic aneurysm (followed q 3-6 months by private roving hauler), obesity; ?alcohol, now admitted for persistent weakness. Patient had a fall five days ago; at [facility], CT scan found contiguous right rib fractures. He was transferred to [facility] and admitted for 5 days. He had physical therapy today where they successfully walked him 20 steps. He refused rehab offer and was sent home. At home, he almost fell, but his and son caught him. He denies new onset weakness, numbness, tingling, cp/sob, f/c, n/v, abdominal pain. Pt is a [employer]. Last hemodialysis (HD) yesterday. PMHX: as in HPI PSHX: toe amputations. Meds: on eliquis. Allergies: pork containing products. Tob: yes Etoh: yes Rec drugs: no PCP: Jameel Jauregui Cardiology: Dr Jayne Odom Renal Doctor: Elizabet Huntley - Current Medication List Current Medications: Active Medications Acetaminophen (Tylenol -) 650 mg PO Q4H PRN PRN Reason: PAIN 1-3 Last Admin: 08/15/20 06:42 Dose: 650 mg Documented by: Amino Acids (Prosource No Carb Liquid Pkt) 30 ml PO 0800,1200,1730 [facility] Last Admin: 08/15/20 08:08 Dose: 30 ml Documented by: Apixaban (Eliquis -) 5 mg PO BID [facility] Last Admin: 08/15/20 09:32 Dose: 5 mg Documented by: Atorvastatin Calcium (Lipitor -) 40 mg PO HS [facility] Last Admin: 08/14/20 21:31 Dose: 40 mg Documented by: Carvedilol (Coreg -) 25 mg PO BID [facility] Last Admin: 08/15/20 09:19 Dose: Not Given Documented by: Collagenase (Santyl -) 1 applic TP DAILY [facility]; Protocol Last Admin: 08/15/20 09:32 Dose: 1 applic Documented by: Guaifenesin (Robitussin -) 5 ml PO Q6H PRN PRN Reason: COUGH Last Admin: 08/11/20 12:52 Dose: 5 ml Documented by: Ceftriaxone Sodium 1 gm/ (Dextrose) 50 mls @ 100 mls/hr IVPB DAILY [facility]; Protocol Last Admin: 08/15/20 09:32 Dose: 100 mls/hr Documented by: Insulin Aspart (Novolog Vial Sliding Scale -) 1 vial SQ ACHS [facility]; Protocol Last Admin: 08/15/20 06:43 Dose: 4 units Documented by: Lisinopril (Prinivil) 2.5 mg PO DAILY [facility] Last Admin: 08/15/20 09:19 Dose: Not Given Documented by: Midodrine (Proamatine -) 5 mg PO TID-MID [facility] Last Admin: 08/15/20 09:32 Dose: 5 mg Documented by: Multivit/Ca Carb/B Cmplx/FA/Prenat (Nephro-Keith -) 1 tablet PO DAILY [facility] Last Admin: 08/15/20 09:32 Dose: 1 tablet Documented by: Pantoprazole Sodium (Protonix -) 40 mg PO DAILY [facility] Last Admin: 08/15/20 09:32 Dose: 40 mg Documented by: Sevelamer Carbonate (Renvela -) 2,400 mg PO TIDCM [facility] Last Admin: 08/15/20 08:08 Dose: 2,400 mg Documented by: - Objective Vital Signs: Vital Signs Temperature 97.9 F 08/15/20 08:15 Pulse Rate 91 H 08/15/20 08:15 Respiratory Rate 18 08/15/20 08:15 Blood Pressure 102/64 08/15/20 08:15 O2 Sat by Pulse Oximetry (%) 99 08/15/20 08:16 Constitutional: Yes: Obese Cardiovascular: Yes: S1 (varies in intensity), S2 Respiratory: Yes: Regular Gastrointestinal: Yes: Soft, Abdomen, Obese ...Rectal Exam: Yes: Deferred Genitourinary: No: Anuria Musculoskeletal: Yes: Muscle Weakness Integumentary: Yes: Pressure Ulcer (right heel), Skin Tear (excoriations perianal) Neurological: Yes: Alert, Oriented, Weakness Psychiatric: Yes: Other Labs: CBC, BMP 08/14/20 09:30 08/14/20 09:30 INR, PTT INR 1.13 (0.83-1.09) H 07/31/20 21:10 Assessment/Plan Mr. Mcfadden is a 64 yr old man with PMH of ESRD (HD MWF), AF on carvedilol and Eliquis, HTN, DM, HLD (hypertriglyceridemia), PAD (s/p right toe amputation); s/p treatement for left chest abscess 12/2019, sleep apnea, mild thoracic ascending aortic aneurysm), alcoholism, obesity, BIBEMS from home for persistent weakness. He is admitted for near-syncope. Systolic CHF (mildly reduced LVEF; severe LAE on ECHO 12/2019). hyperprolactinemia, likely secondary to ESRD chronic right heel wound Rec: Now on midodrine; BP low-normal during hemodialysis yesterday. If agreed upon by nephologist, would recommend restarting carvedilol at low-dose (3.125 or 6.25 mg bid) for HR control (AF). On apixaban for anticoagulation. On atorvastatin; LDL 52 mg/dL. BUN/Cr, electrolytes, daily weight, Is and Os. Rt heel wound care. Continue hemodialysis per [place]. Discontinued telemetry.
--- NOTE | 2020-08-15 15:43 | PN ---
Progress Note, Physician History of Present Illness: Seen and examined at the bedside awake and alert BP in 90's systolic no cp, sob, fever, chills s/p dialysis yesterday with 1.3L UF - Current Medication List Current Medications: Active Medications Acetaminophen (Tylenol -) 650 mg PO Q4H PRN PRN Reason: PAIN 1-3 Last Admin: 08/15/20 06:42 Dose: 650 mg Documented by: Amino Acids (Prosource No Carb Liquid Pkt) 30 ml PO 0800,1200,1730 [facility] Last Admin: 08/15/20 11:55 Dose: 30 ml Documented by: Apixaban (Eliquis -) 5 mg PO BID [facility] Last Admin: 08/15/20 09:32 Dose: 5 mg Documented by: Atorvastatin Calcium (Lipitor -) 40 mg PO HS [facility] Last Admin: 08/14/20 21:31 Dose: 40 mg Documented by: Carvedilol (Coreg -) 25 mg PO BID [facility] Last Admin: 08/15/20 09:19 Dose: Not Given Documented by: Collagenase (Santyl -) 1 applic TP DAILY [facility]; Protocol Last Admin: 08/15/20 09:32 Dose: 1 applic Documented by: Guaifenesin (Robitussin -) 5 ml PO Q6H PRN PRN Reason: COUGH Last Admin: 08/11/20 12:52 Dose: 5 ml Documented by: Ceftriaxone Sodium 1 gm/ (Dextrose) 50 mls @ 100 mls/hr IVPB DAILY [facility]; Protocol Last Admin: 08/15/20 09:32 Dose: 100 mls/hr Documented by: Insulin Aspart (Novolog Vial Sliding Scale -) 1 vial SQ ACHS [facility]; Protocol Last Admin: 08/15/20 11:57 Dose: 4 units Documented by: Lisinopril (Prinivil) 2.5 mg PO DAILY [facility] Last Admin: 08/15/20 09:19 Dose: Not Given Documented by: Midodrine (Proamatine -) 5 mg PO TID-MID [facility] Last Admin: 08/15/20 14:57 Dose: 5 mg Documented by: Multivit/Ca Carb/B Cmplx/FA/Prenat (Nephro-Keith -) 1 tablet PO DAILY [facility] Last Admin: 08/15/20 09:32 Dose: 1 tablet Documented by: Pantoprazole Sodium (Protonix -) 40 mg PO DAILY [facility] Last Admin: 08/15/20 09:32 Dose: 40 mg Documented by: Sevelamer Carbonate (Renvela -) 2,400 mg PO TIDCM [facility] Last Admin: 08/15/20 11:56 Dose: 2,400 mg Documented by: - Objective Vital Signs: Vital Signs Temperature 97.9 F 08/15/20 14:10 Pulse Rate 98 H 08/15/20 14:10 Respiratory Rate 16 08/15/20 14:10 Blood Pressure 90/60 08/15/20 14:10 O2 Sat by Pulse Oximetry (%) 99 08/15/20 08:16 Constitutional: Yes: No Distress, Calm HENT: Yes: Atraumatic Neck: Yes: Supple Cardiovascular: Yes: Regular Rate and Rhythm Respiratory: Yes: Regular Gastrointestinal: Yes: Soft. No: Tenderness Extremities: No: Cyanosis Labs: CBC, BMP 08/14/20 09:30 08/14/20 09:30 INR, PTT INR 1.13 (0.83-1.09) H 07/31/20 21:10 Assessment/Plan 64 year hold male with history of ESRD on HD (MWF), PVD, DM, atrial fibrillation on Eliquis who presented from home with weakness and an inability to ambulate. 1. Generalized weakness 2. ESRD on HD 3. Recent syncope 4. DM 5. Hypertension 6. Renal Osteodystrophy 7. PVD 8. Atrial fibrillation 9. CKD related Anemia 10. Hyponatremia in setting of renal insufficiency 11. Fever next planned dialysis is tomorrow. Continue midodrine TID to treat hypotension all culture negative thus far Will check ECHO hold Lisinopril for now given low BP Continue Coreg as per cardiology Antibiotics per ID Continue Phos binder with meals. Thank you Meet Pedro DO
[2020-08-15] MEDS ORDERED: CARVEDILOL 3.125 MG TABLET (FP) PO SCH (16:15)
--- NOTE | 2020-08-15 21:01 | PN ---
Progress Note, Physician History of Present Illness: No new complaints - Current Medication List Current Medications: Active Medications Acetaminophen (Tylenol -) 650 mg PO Q4H PRN PRN Reason: PAIN 1-3 Last Admin: 08/15/20 06:42 Dose: 650 mg Documented by: Albumin Human (Albumin Human 25%) 12.5 gm IVPB Q30M [facility] Amino Acids (Prosource No Carb Liquid Pkt) 30 ml PO 0800,1200,1730 [facility] Last Admin: 08/15/20 17:17 Dose: 30 ml Documented by: Apixaban (Eliquis -) 5 mg PO BID [facility] Last Admin: 08/15/20 09:32 Dose: 5 mg Documented by: Atorvastatin Calcium (Lipitor -) 40 mg PO HS [facility] Last Admin: 08/14/20 21:31 Dose: 40 mg Documented by: Carvedilol (Coreg -) 3.125 mg PO BID [facility] Last Admin: 08/15/20 17:17 Dose: 3.125 mg Documented by: Collagenase (Santyl -) 1 applic TP DAILY [facility]; Protocol Last Admin: 08/15/20 09:32 Dose: 1 applic Documented by: Epoetin Lenny-epbx (Retacrit) 4,000 unit IVPUSH ONCE ONE Stop: 08/16/20 08:01 Guaifenesin (Robitussin -) 5 ml PO Q6H PRN PRN Reason: COUGH Last Admin: 08/11/20 12:52 Dose: 5 ml Documented by: Ceftriaxone Sodium 1 gm/ (Dextrose) 50 mls @ 100 mls/hr IVPB DAILY [facility]; Protocol Last Admin: 08/15/20 09:32 Dose: 100 mls/hr Documented by: Sodium Chloride (Normal Saline -) 250 mls @ 3,000 mls/hr IV PRN PRN PRN Reason: Hypotension during Dialysis Stop: 08/16/20 15:43 Insulin Aspart (Novolog Vial Sliding Scale -) 1 vial SQ ACHS [facility]; Protocol Last Admin: 08/15/20 17:17 Dose: 2 units Documented by: Lisinopril (Prinivil) 2.5 mg PO DAILY [facility] Last Admin: 08/15/20 09:19 Dose: Not Given Documented by: Midodrine (Proamatine -) 5 mg PO TID-MID [facility] Last Admin: 08/15/20 17:17 Dose: 5 mg Documented by: Multivit/Ca Carb/B Cmplx/FA/Prenat (Nephro-Keith -) 1 tablet PO DAILY [facility] Last Admin: 08/15/20 09:32 Dose: 1 tablet Documented by: Pantoprazole Sodium (Protonix -) 40 mg PO DAILY [facility] Last Admin: 08/15/20 09:32 Dose: 40 mg Documented by: Sevelamer Carbonate (Renvela -) 2,400 mg PO TIDCM [facility] Last Admin: 08/15/20 17:25 Dose: 2,400 mg Documented by: - Objective Vital Signs: Vital Signs Temperature 97.8 F 08/15/20 18:00 Pulse Rate 93 H 08/15/20 18:00 Respiratory Rate 17 08/15/20 18:00 Blood Pressure 110/68 08/15/20 18:00 O2 Sat by Pulse Oximetry (%) 96 08/15/20 18:00 Neck: Yes: WNL, Supple Cardiovascular: Yes: Pulse Irregular Respiratory: Yes: Diminished Gastrointestinal: Yes: WNL, Normal Bowel Sounds, Soft, Abdomen, Obese Labs: CBC, BMP 08/14/20 09:30 08/14/20 09:30 INR, PTT INR 1.13 (0.83-1.09) H 07/31/20 21:10 Problem List - Problems (1) HTN (hypertension) Assessment/Plan: Monitor BP wc has been hypotensive Coreg/lisinopril on hold Pt has been on midrodine Cardio may restart coreg Code(s): I10 - ESSENTIAL (PRIMARY) HYPERTENSION (2) Fever Assessment/Plan: ?pneumonia CT scan chest showed ribs fx's and pleural effusion w/ ? underlying infiltrate Cont ceftriaxone BC/urine culture WBC normal Pt afebrile today ID consult noted Code(s): R50.9 - FEVER, UNSPECIFIED (3) Near syncope Assessment/Plan: Due to unsteady gait Due to rib fracture Heart rate stable BNP elevated to >22,000 CT scan chest showed rib fractures/pleural effusions and ?superimposed infiltrate Code(s): R55 - SYNCOPE AND COLLAPSE (4) ESRD (end stage renal disease) Assessment/Plan: Pt on dialysis As per renal Code(s): N18.6 - END STAGE RENAL DISEASE (5) Atrial fibrillation Assessment/Plan: Heart rate controlled Cont eliquis/BB Code(s): I48.91 - UNSPECIFIED ATRIAL FIBRILLATION (6) Diabetes Assessment/Plan: Cont sliding scale w/ coverage Rt heel ulcer Pt seen by podiatry Cont wound care w/ santyl Code(s): E11.9 - TYPE 2 DIABETES MELLITUS WITHOUT COMPLICATIONS Qualifiers: Diabetes mellitus skilled nursing insulin use: unspecified skilled nursing insulin use status Diabetes mellitus complication status: with circulatory complication (7) Foot ulcer due to secondary DM Assessment/Plan: Cont wound care for Rt heel Code(s): E13.621 - OTHER SPECIFIED DIABETES MELLITUS WITH FOOT ULCER; L97.509 - NON-PRESSURE CHRONIC ULCER OTH PRT UNSP FOOT W UNSP SEVERITY (8) HLD (hyperlipidemia) Assessment/Plan: Cont lipitor Code(s): E78.5 - HYPERLIPIDEMIA, UNSPECIFIED (9) CAD (coronary artery disease) Code(s): I25.10 - ATHSCL HEART DISEASE OF [place] CORONARY ARTERY W/O ANG PCTRS (10) PAD (peripheral artery disease) Code(s): I73.9 - PERIPHERAL VASCULAR DISEASE, UNSPECIFIED
[2020-08-15] MEDS: ATORVASTATIN CA 40 MG TABLET (FP) PO SCH (21:46)
[2020-08-15 23:16] VITALS: BP 113/55; PULSE 98; TEMP 97.9
--- NOTE | 2020-08-16 07:13 | RAPID ---
Physical Examination Vital Signs: Vital Signs Temperature 97.9 F 08/15/20 22:00 Pulse Rate 98 H 08/15/20 22:00 Respiratory Rate 17 08/15/20 22:00 Blood Pressure 113/55 L 08/15/20 22:00 O2 Sat by Pulse Oximetry (%) 98 08/15/20 22:00 Labs: CBC, BMP 08/14/20 09:30 08/14/20 09:30 Rapid Response - Rapid Response Assessment: Rapid response was called after nurse found patient to be unresponsive and pulseless at 6:30 am. Rapid response team arrived immediately. ACLS protocol was initiated. Please see code sheet for further details. Pt is unresponsive, even to painful stimuli. Pupils fixed and non-reactive. Pt has no spontaneous breathing, no heart sounds or breath sounds. No carotid pule present. TOD: 6:49am 08/16/2020 Family notified Grievance services offered to family. Body to be released to home of familys choice.
--- NOTE | 2020-08-16 08:42 | PN ---
Progress Note, Physician History of Present Illness: Mr. 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 Patient had a fall five days ago; at [facility], CT scan found contiguous right rib fractures. He was transferred to [facility] and admitted for 5 days. He had physical therapy today where they successfully walked him 20 steps. He refused rehab offer and was sent home. At home, he almost fell, but his and son caught him. He denies new onset weakness, numbness, tingling, cp/sob, f/c, n/v, abdominal pain. Pt is a [employer]. Last hemodialysis (HD) yesterday. PMHX: as in HPI PSHX: toe amputations. Meds: on eliquis. Allergies: pork containing products. Tob: yes Etoh: yes Rec drugs: no PCP: Jameel Jauregui Cardiology: Dr Jayne Odom Renal Doctor: Elizabet Huntley - Current Medication List Current Medications: Active Medications Acetaminophen (Tylenol -) 650 mg PO Q4H PRN PRN Reason: PAIN 1-3 Last Admin: 08/15/20 06:42 Dose: 650 mg Documented by: Albumin Human (Albumin Human 25%) 12.5 gm IVPB Q30M [facility] Amino Acids (Prosource No Carb Liquid Pkt) 30 ml PO 0800,1200,1730 [facility] Last Admin: 08/15/20 17:17 Dose: 30 ml Documented by: Apixaban (Eliquis -) 5 mg PO BID [facility] Last Admin: 08/15/20 21:46 Dose: 5 mg Documented by: Atorvastatin Calcium (Lipitor -) 40 mg PO HS [facility] Last Admin: 08/15/20 21:46 Dose: 40 mg Documented by: Carvedilol (Coreg -) 3.125 mg PO BID [facility] Last Admin: 08/15/20 17:17 Dose: 3.125 mg Documented by: Collagenase (Santyl -) 1 applic TP DAILY [facility]; Protocol Last Admin: 08/15/20 09:32 Dose: 1 applic Documented by: Epoetin Lenny-epbx (Retacrit) 4,000 unit IVPUSH ONCE ONE Stop: 08/16/20 08:01 Guaifenesin (Robitussin -) 5 ml PO Q6H PRN PRN Reason: COUGH Last Admin: 08/11/20 12:52 Dose: 5 ml Documented by: Ceftriaxone Sodium 1 gm/ (Dextrose) 50 mls @ 100 mls/hr IVPB DAILY [facility]; Protocol Last Admin: 08/15/20 09:32 Dose: 100 mls/hr Documented by: Sodium Chloride (Normal Saline -) 250 mls @ 3,000 mls/hr IV PRN PRN PRN Reason: Hypotension during Dialysis Stop: 08/16/20 15:43 Insulin Aspart (Novolog Vial Sliding Scale -) 1 vial SQ ACHS [facility]; Protocol Last Admin: 08/15/20 21:46 Dose: 4 units Documented by: Lisinopril (Prinivil) 2.5 mg PO DAILY [facility] Last Admin: 08/15/20 09:19 Dose: Not Given Documented by: Midodrine (Proamatine -) 5 mg PO TID-MID [facility] Last Admin: 08/15/20 17:17 Dose: 5 mg Documented by: Multivit/Ca Carb/B Cmplx/FA/Prenat (Nephro-Keith -) 1 tablet PO DAILY [facility] Last Admin: 08/15/20 09:32 Dose: 1 tablet Documented by: Pantoprazole Sodium (Protonix -) 40 mg PO DAILY [facility] Last Admin: 08/15/20 09:32 Dose: 40 mg Documented by: Sevelamer Carbonate (Renvela -) 2,400 mg PO TIDCM [facility] Last Admin: 08/15/20 17:25 Dose: 2,400 mg Documented by: - Objective Vital Signs: Vital Signs Temperature 97.9 F 08/15/20 22:00 Pulse Rate 98 H 08/15/20 22:00 Respiratory Rate 17 08/15/20 22:00 Blood Pressure 113/55 L 08/15/20 22:00 O2 Sat by Pulse Oximetry (%) 98 08/15/20 22:00 Eyes: Yes: WNL, Conjunctiva Clear, EOM Intact HENT: Yes: WNL, Atraumatic, Normocephalic Neck: Yes: WNL, Supple, Trachea Midline Cardiovascular: Yes: WNL, Regular Rate and Rhythm Respiratory: Yes: WNL, Regular, CTA Bilaterally Gastrointestinal: Yes: WNL, Normal Bowel Sounds Genitourinary: Yes: WNL Musculoskeletal: Yes: WNL Extremities: Yes: WNL Edema: No Integumentary: Yes: WNL Neurological: Yes: WNL, Alert, Oriented ...Motor Strength: WNL Psychiatric: Yes: WNL Labs: CBC, BMP 08/14/20 09:30 08/14/20 09:30 INR, PTT INR 1.13 (0.83-1.09) H 07/31/20 21:10 Assessment/Plan Mr. Mcfadden is a 64 yr old man with PMH of ESRD (HD MWF), AF on carvedilol and Eliquis, HTN, DM, HLD (hypertriglyceridemia), PAD (s/p right toe amputation); s/p treatement for left chest abscess 12/2019, sleep apnea, mild thoracic ascending aortic aneurysm), alcoholism, obesity, BIBEMS from home for persistent weakness. He is admitted for near-syncope. Systolic CHF (mildly reduced LVEF; severe LAE on ECHO 12/2019). hyperprolactinemia, likely secondary to ESRD chronic right heel wound Rec: Now on midodrine; BP low-normal during hemodialysis yesterday. If agreed upon by nephologist, would recommend restarting carvedilol at low-dose (3.125 or 6.25 mg bid) for HR control (AF). On apixaban for anticoagulation. On atorvastatin; LDL 52 mg/dL. BUN/Cr, electrolytes, daily weight, Is and Os. Rt heel wound care. 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 Discontinued telemetry.
[2020-08-16] MEDS ORDERED: SODIUM CHLORIDE 250 ML IV PRN (11:08)
[2020-08-16] MEDS ORDERED: EPOETIN ALFA-EPBX 4,000 UNIT/ML VIAL IVPUSH ONE (11:30)
[2020-08-16] MEDS ORDERED: ALBUMIN HUMAN 25% 12.5 GM/50 ML VIAL IVPB SCH (11:30)
--- NOTE | 2020-08-23 15:14 | DS ---
Physical Examination Vital Signs: Vital Signs Temperature 97.9 F 08/15/20 22:00 Pulse Rate 98 H 08/15/20 22:00 Respiratory Rate 17 08/15/20 22:00 Blood Pressure 113/55 L 08/15/20 22:00 O2 Sat by Pulse Oximetry (%) 98 08/15/20 22:00 Labs: CBC, BMP 08/14/20 09:30 08/14/20 09:30 Discharge Summary Problems reviewed: Yes Reason For Visit: PRE SYNCOPE Near syncope HTN HLD CAD Afib ESRD on dialysis Systolic CHF PAD Diabetes Rib Fractures Diabetic foot ulcer Fever Sepsis Tachycardia pneumonia Anemia Hospital Course: Pt is a 64 y/o male w/ PMH significant for Diabetes, ESRD (HD TIW), AFib, PSVT, HTN, HLD, CAD, Anemia, GERD, PAD (s/p right toe amputation), left chest abscess 12/2019; mild ascending thoracic aneurysm (followed q 3-6 months by 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 Pt had a fall and went to [facility] where CT scan found contiguous right rib fractures. Pt now admitted to [facility] for weakness/near syncope. Pt [facility] and followed by cardio and renal initially. pt had negative cpk/troponin but was found to have elevated BNP thought to be due to his ESRD. Pt had episodes of hypotension and his meds were adjusted and midrodine was started. However pt subsequently developed fever and probable sepsis(tachycardia/hypotension) and his wbc increased but than returned to normal. CT scan chest was done wc showed rt rib fractures w/ b/l pleural effusion and probable superimposed infiltrate Pt started on IV antibxs for pneumonia and blood/urine cultures were negative. Pt was also seen by podiatry for a rt heel ulcer and was given wound care/santyl. however pt was found unresponsive on 08/16/20 and rapid response was called. ACLS protocol was intiated and pt pronounced at 6:49 am. Condition: Fair - Instructions Referrals: Jameel Jauregui MD [Primary Care Provider] - Disposition: - Home Medications Comprehensive Discharge Medication List: Ambulatory Orders Atorvastatin Ca [Lipitor] 40 mg PO HS #30 tablet 10/03/14 cloNIDine HCL [Catapres -] 0.1 mg PO BID #60 tablet 10/03/14 Metoclopramide HCl [Reglan] 5 mg PO TID #0 tablet 04/28/16 Pantoprazole Sodium [Protonix] 40 mg PO DAILY #0 tablet. 04/28/16 Sevelamer Carbonate [Renvela -] 2,400 mg PO TID 04/28/16 Ammonium Lactate Lotion [Lac-Hydrin 12] 1 applic TP BID PRN bottle 02/08/18 Clopidogrel Bisulfate [Plavix] 75 mg PO DAILY #30 tablet 08/19/18 Apixaban [Eliquis -] 5 mg PO BID tablet 12/29/19 Carvedilol [Coreg -] 25 mg PO BID tablet 12/29/19 Epoetin Lenny [Procrit -] 20,000 unit SQ Q2D ml 12/29/19 Epoetin Lenny [Procrit -] 20,000 unit SQ Q2D ml 12/29/19 Lisinopril [Prinivil] 10 mg PO DAILY tablet 12/29/19 Insulin Degludec [Tresiba] 24 units DAILY 07/31/20
== END 2020-08-16 13:50 | disposition expired | DRG 291 ==
LOC: JER 18:17 → JERBED 21:58 → J4S 08-01 02:55
PROVIDERS: ADMIT Internal Medicine; ATTEND Internal Medicine
PROC: 5A1D70Z Performance of Urinary Filtration, Intermittent, Less than 6 Hours Per Day (ICD-10-PCS; principal; 2020-08-14)
DX: I13.2 Hypertensive heart and chronic kidney disease with heart failure and with stage 5 chronic kidney disease, or end stage renal disease (principal); J18.9 Pneumonia, unspecified organism; N18.6 End stage renal disease; S22.49XA Multiple fractures of ribs, unspecified side, initial encounter for closed fracture; S22.42XA Multiple fractures of ribs, left side, initial encounter for closed fracture; I50.40 Unspecified combined systolic (congestive) and diastolic (congestive) heart failure; E87.1 Hypo-osmolality and hyponatremia; E22.1 Hyperprolactinemia; L97.915 Non-pressure chronic ulcer of unspecified part of right lower leg with muscle involvement without evidence of necrosis; R55 Syncope and collapse; I48.91 Unspecified atrial fibrillation; I10 Essential (primary) hypertension; E11.51 Type 2 diabetes mellitus with diabetic peripheral angiopathy without gangrene; E66.9 Obesity, unspecified; E11.40 Type 2 diabetes mellitus with diabetic neuropathy, unspecified; E11.621 Type 2 diabetes mellitus with foot ulcer; E11.69 Type 2 diabetes mellitus with other specified complication; I95.9 Hypotension, unspecified; Z68.35 Body mass index [BMI] 35.0-35.9, adult; E78.5 Hyperlipidemia, unspecified; N25.0 Renal osteodystrophy; X58.XXXA Exposure to other specified factors, initial encounter; Y93.9 Activity, unspecified; Y92.89 Other specified places as the place of occurrence of the external cause; Y99.9 Unspecified external cause status
CPT/HCPCS: 36415; 71045-TC-FY; 71250-TC; 80048; 80053; 80061; 82550; 82962; 83605; 83721; 83735; 83880; 84100; 84146; 84484; 85025; 85027; 85610; 85730; 86803; 87040; 87340; 93005; 93010; 97116-GP; 97161-GP; 99285-25; C9803; G0480; J0735; J0885; P9047; Q5106; U0003